=== PATIENT | female | born 1935 | race Caucasian/White ===

== ENCOUNTER → 2016-06-13 | Outpatient (CLI) | payer OTHER ==
[~2016-06-13] MED LIST: ACET-1257 PO; ANT25 PO; ASPI81TA28 PO; AZIT500T PO; CALC-452 PO; CHOL2000 PO; CHOL4POW5 PO; CITA20TA4 PO; CLOP1TAB15 PO; CZR50 PO; ESCI1TAB6 PO; FAMO20TA9 PO; GABA-112 PO; IMDSR30 PO; INSU1INJ33 SQ; LORA-741 PO; LOSA100T65 PO; LVMI SQ; LVMIPEN SQ; LXP10 PO; MECL1TAB42 PO; MIRT15TA3 PO; NITR0.4S UT; NVLGI/PEN SC; NVLGI/PEN SQ; ONDA4TAB54 PO; PANT40TA PO; PANT40TA2 PO; PRD/1 PO; PRED-301 PO; ROSU40TA PO; ROSU40TA28 PO; SULF800T23 PO; TPRSR/100 PO; WARF-246 PO; WARF-283 PO; WARF4TAB PO; WARF6TAB PO; ZOLE5INJ INJ; ZOLE5INJ IV; ZOLP10TA6 PO; ZOLP5TAB6 PO
[2016-06-13 10:05] LABS: INR 2.5 (0.9-1.1); PROTHROMBIN TIME (PATIENT) 28.3 SECONDS (9.0-12.0)
[2016-06-13 11:21] LABS: BLOOD UREA NITROGEN 25 mg/dl (7-18); BUN/CREATININE RATIO 18.8 (10-20); CALCIUM 8.7 mg/dl (8.5-10.1); CARBON DIOXIDE 28 mmol/L (21-32); CHLORIDE 105 mmol/L (98-107); GLUCOSE 324 mg/dl (70-99); POTASSIUM 4.1 mmol/L (3.5-5.1); SODIUM 140 mmol/L (136-145)
[2016-06-13 11:37] LABS: BETA-HYDROXYBUTYRATE 0.95 mg/dL (0.2-2.81)
== END | disposition home or self-care (01) ==
LOC: C.LAB1850 09:05
PROVIDERS: ATTEND Internal Medicine Geriatric Medicine
DX: I65.29 Occlusion and stenosis of unspecified carotid artery (principal); I10 Essential (primary) hypertension; E86.0 Dehydration

== ENCOUNTER 2016-06-19 18:48 | Observation (INO) | payer OTHER ==
[~2016-06-19] VITALS: Ht 167.6 cm; Wt 77.6 kg
[~2016-06-19 18:48] MED LIST changes: -AZIT500T PO; -CHOL4POW5 PO; -CITA20TA4 PO; -CLOP1TAB15 PO; -CZR50 PO; -ESCI1TAB6 PO; -FAMO20TA9 PO; -GABA-112 PO; -INSU1INJ33 SQ; -LORA-741 PO; +LOSA1TAB38 PO; -LVMI SQ; -LXP10 PO; -MECL1TAB42 PO; -MIRT15TA3 PO; -NVLGI/PEN SQ; +NVLGIPEN SC; -ONDA4TAB54 PO; -PANT40TA2 PO; -PRD/1 PO; +PRT/40 PO; +ROSU40TA18 PO; -ROSU40TA28 PO; -SULF800T23 PO; -WARF-246 PO; -WARF4TAB PO; -WARF6TAB PO; +WARF6TAB5 PO; -ZOLE5INJ IV; -ZOLP10TA6 PO; -ZOLP5TAB6 PO; +coumadin PO
[2016-06-19] MEDS ORDERED: ONDANSETRON INJ 2 MG/ML 2 ML VIAL IV STA (19:06)
--- NOTE | 2016-06-19 19:09 | EMERGENCY ROOM VISIT NOTE ---
History Report prepared by Ivana: Sara Cox Under the Supervision of: Dr. Jamison Carroll D.O. First contact with patient: 19:02 Chief Complaint: CHEST PAIN Stated Complaint: CHEST PAIN Nursing Triage Summary: Patient reports left sided CP that radiates into the left arm. Unsure when pain started, unable to describe pain at this time. Patient also reports associated nausea. Denies SOB. Patient has a hx of tripple bypass and stent placement. 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 The patient states that she took a baby Aspirin 30 minutes ago resolved her pain. She states she is also experiencing nausea with her symptoms. The patient denies any SOB or cough. She states that she has history of coronary stents, a triple bypass and stroke. She states she also has PMR which affects her chest but she states that her pain today feels different. The patient denies any new medications. 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 A total of 10 systems reviewed and were otherwise negative. Past Medical & Surgical Medical Problems: (1) CAD (coronary artery disease) (2) Carcinoma of colon (3) Colectomy (4) Coronary artery disease involving [place] coronary artery (5) Diabetes (6) Dizziness (7) Familial combined hyperlipidemia (8) Peptic ulcer (9) Rheumatoid arthritis (10) Stable angina (11) Vertigo Surgical Problems: (1) History of cholecystectomy (2) History of colectomy (3) Removal of pin, plate, lulu, or screw (4) S/P CABG x 3 Family History Cancer Diabetes mellitus FHx: aneurysm Heart disease Hypertension Social History Smoking Status: Never Smoker Alcohol Use: none Drug Use: none Marital Status: Housing Status: lives with significant other Occupation Status: retired Current/Historical Medications Scheduled Aspirin (Aspirin Ec), 81 MG PO DAILY Calcium Carbonate-Cholecalcife (Calcium 600 + D 600-200 mg-Unit), 1 TABS PO BID Cholecalciferol (Vitamin D3), 2,000 INTER.UNIT PO BID Insulin Aspart (Novolog Flexpen), 12 UNITS SC UD Insulin Aspart (Novolog Flexpen), 14 UNITS SC UD Insulin Detemir (Levemir Flexpen), 10 UNITS SQ QPM Isosorbide Mononitrate (Isosorbide Mononitrate ER), 30 MG PO QAM Losartan Potassium (Cozaar), 100 MG PO DAILY Metoprolol Succinate (Metoprolol Succinate ER), 100 MG PO DAILY Pantoprazole (Pantoprazole Sodium), 40 MG PO DAILY Prednisone (Prednisone), 5 MG PO BID Rosuvastatin Calcium (Rosuvastatin Calcium), 40 MG PO DAILY Warfarin Sodium (Warfarin Sodium), 4 MG PO DAILY Zoledronic Acid (Reclast), 1 DOSE INJ YEARLY Scheduled PRN Acetaminophen (Tylenol Extra Strength), 1,000 MG PO TID PRN for Pain Nitroglycerin (Nitrostat), 0.4 MG UT UD PRN for Chest Pain Allergies Coded Allergies: Cefadroxil (Verified Allergy, Intermediate, UNKNOWN, 05/18/16) Clindamycin (Verified Allergy, Intermediate, UNKNOWN, 05/18/16) Levofloxacin (Verified Allergy, Intermediate, UNKNOWN, 05/18/16) Metronidazole (Verified Allergy, Intermediate, UNKNOWN, 05/18/16) Amoxicillin (Verified Adverse Reaction, Mild, diarrhea, 05/18/16) Clavulanic Acid (Verified Adverse Reaction, Mild, diarrhea, 05/18/16) Metformin (Verified Adverse Reaction, Mild, diarreha, 05/18/16) Sitagliptin (Verified Adverse Reaction, Mild, diarreha, 05/18/16) Physical Exam Vital Signs Date Time Temp Pulse Resp B/P Pulse Ox O2 Delivery O2 Flow Rate FiO2 06/19/16 20:59 89 20 165/82 96 Room Air 06/19/16 19:14 Room Air 06/19/16 19:13 95 Room Air 06/19/16 19:05 86 06/19/16 19:02 94 Room Air 06/19/16 18:59 36.7 85 20 168/88 94 Room Air Physical Exam GENERAL: Patient is awake, alert, very anxious appearing and appears to be uncomfortable. EYES: The conjunctivae are clear. The pupils are round and reactive. EARS, NOSE, MOUTH AND THROAT: The nose is without any evidence of any deformity. Mucous membranes are moist tongue is midline NECK: The neck is nontender and supple. RESPIRATORY: Normal respiratory effort is noted there is no evidence of wheezing rhonchi or rales CARDIOVASCULAR: Regular rate and rhythm noted there no murmurs rubs or gallops normal S1 normal S2 GASTROINTESTINAL: The abdomen is soft. Bowel sounds are present in all quadrants. Abdomen is nontender MUSCULOSKELETAL/EXTREMITIES: There is no evidence of gross deformity full range of motion is noted in the hips and shoulders SKIN: There is no obvious evidence of any rash. There are no petechiae, pallor or cyanosis noted. Trace pedal edema bilaterally. NEUROLOGIC: Patient is awake alert and oriented x3 Medical Decision & Procedures ER Provider Diagnostic Interpretation: X-ray results as stated below per interpretation by me and the radiologist. CHEST ONE VIEW PORTABLE CLINICAL HISTORY: Chest pain. COMPARISON STUDY: Chest radiograph June 07, 2016. FINDINGS: There are median sternotomy wires and a prosthetic aortic valve. Moderate cardiomegaly is unchanged. There is no evidence of pulmonary edema. Mild elevation of the right hemidiaphragm is unchanged. Mild left basilar opacity favors atelectasis. Incidental note is made of suspected calcific tendinitis of the left rotator cuff. IMPRESSION: No acute cardiopulmonary findings. Stable cardiomegaly without evidence of pulmonary edema. Electronically signed by: Emmanuel Marino M.D. 06/19/2016 7:21 PM Dictated Date/Time: 06/19/2016 7:20 PM Laboratory Results 06/19/16 19:05 Red Blood Count 4.50, Mean Corpuscular Volume 93.3, Mean Corpuscular Hemoglobin 30.2, Mean Corpuscular Hemoglobin Concent 32.4, Mean Platelet Volume 9.8, Neutrophils (%) (Auto) 51.8, Lymphocytes (%) (Auto) 33.5, Monocytes (%) (Auto) 13.6, Eosinophils (%) (Auto) 0.4, Basophils (%) (Auto) 0.1, Neutrophils # (Auto ) 3.47, Lymphocytes # (Auto) 2.25, Monocytes # (Auto) 0.91, Eosinophils # (Auto ) 0.03, Basophils # (Auto) 0.01 06/19/16 19:05 Test 06/19/16 19:05 06/19/16 21:19 White Blood Count 6.71 K/uL (4.8-10.8) Red Blood Count 4.50 M/uL (4.2-5.4) Hemoglobin 13.6 g/dL (12.0-16.0) Hematocrit 42.0 % (37-47) Mean Corpuscular Volume 93.3 fL (80-100) Mean Corpuscular Hemoglobin 30.2 pg (25-34) Mean Corpuscular Hemoglobin Concent 32.4 g/dl (32-36) Platelet Count 142 K/uL (130-400) Mean Platelet Volume 9.8 fL (7.4-10.4) Neutrophils (%) (Auto) 51.8 % Lymphocytes (%) (Auto) 33.5 % Monocytes (%) (Auto) 13.6 % Eosinophils (%) (Auto) 0.4 % Basophils (%) (Auto) 0.1 % Neutrophils # (Auto) 3.47 K/uL (1.4-6.5) Lymphocytes # (Auto) 2.25 K/uL (1.2-3.4) Monocytes # (Auto) 0.91 K/uL (0.11-0.59) Eosinophils # (Auto) 0.03 K/uL (0-0.5) Basophils # (Auto) 0.01 K/uL (0-0.2) RDW Standard Deviation 56.8 fL (36.4-46.3) RDW Coefficient of Variation 16.5 % (11.5-14.5) Immature Granulocyte % (Auto) 0.6 % Immature Granulocyte # (Auto) 0.04 K/uL (0.00-0.02) Prothrombin Time 24.3 SECONDS (9.0-12.0) Prothromb Time International Ratio 2.2 (0.9-1.1) Activated Partial Thromboplast Time 30.5 SECONDS (21.0-31.0) Partial Thromboplastin Ratio 1.2 Anion Gap 9.0 mmol/L (3-11) Est Creatinine Clear Calc Drug Dose 34.4 ml/min Estimated GFR () 41.3 Estimated GFR (Non- 35.6 BUN/Creatinine Ratio 13.8 (10-20) Calcium Level 9.7 mg/dl (8.5-10.1) Total Bilirubin 0.3 mg/dl (0.2-1) Direct Bilirubin 0.1 mg/dl (0-0.2) Aspartate Amino Transf (AST/SGOT) 25 U/L (15-37) Alanine Aminotransferase (ALT/SGPT) 35 U/L (12-78) Alkaline Phosphatase 68 U/L (45-117) Total Creatine Kinase 24 U/L (26-192) Creatine Kinase MB 0.9 ng/ml (0.5-3.6) Creatine Kinase MB Ratio 3.8 (0-3.0) Total Protein 6.9 gm/dl (6.4-8.2) Albumin 3.6 gm/dl (3.4-5.0) Lipase 176 U/L (73-393) Laboratory results per my review. Medications Administered Medications (Trade) Dose Ordered Sig/Sincere Route Start Time Stop Time Status Last Admin Dose Admin Ondansetron HCl (Zofran Inj) 4 mg NOW STAT IV 06/19/16 19:06 06/19/16 19:08 DC 06/19/16 19:16 4 MG ECG Indication: chest pain Rate (beats per minute): 86 Rhythm: normal sinus Findings: no ectopy, other (Inferior and lateral ST segment abnormalities) Comparison ECG Date: May 26, 2016 Change: no significant change ED Course 1902: The patient was evaluated in room C1B. A complete history and physical examination were performed. 1905: Ordered Zofran Inj 4 mg IV. 2020: I discussed the case with Dr. Jm CASTREJON Hospitalist. He agreed to evaluate the patient for further management and care. Medical Decision Differential diagnosis: Etiologies such as cardiac ischemia, aortic dissection, pulmonary embolism, pneumonia, pneumothorax, musculoskeletal, infections, pericarditis, myocarditis , esophageal rupture, gastrointestinal, as well as others were entertained. Nursing notes reviewed. Patient's previous electronic medical records reviewed. Additional history is obtained from the patient's significant other. The patient is a 80-year-old female who presented to the emergency department for an evaluation of chest pain. The patient describes left-sided chest pain and nausea which began prior to arrival. Her gave her aspirin and nitroglycerin which resolved the majority of her pain but she continued to have an ill feeling and nausea. The patient presented to the emergency department with her significant other. The patient was treated with Zofran in the emergency department. The patient was recently at our facility for similar complaints and at that time had a cardiac catheterization. She has a history of coronary artery bypass grafting. Her recent cardiac catheterization did show significant coronary artery disease but she was felt to be a medical management only patient. She was not felt to be a good candidate for any intervention at this time. The patient's pain was improved. I discussed the patient's laboratory and radiographic studies with her. I also discussed the limitations of the emergency department workup for chest pain with her. Given the patient's recent cardiac catheterization in her troponin I discussed her case with the on- call [facility] hospitalist. They've agreed to evaluate the patient in the emergency apartment for further management and disposition. Consults Time Called: 2009 Consulting Physician: Dr. Jm CASTREJON Hospitalist. Returned Call: 2019 I discussed the case with Dr. Jm CASTREJON Hospitalist. He agreed to evaluate the patient for further management and care. Impression Primary Impression: Left sided chest pain Additional Impressions: Abnormal EKG, History of coronary artery disease Scribe Attestation The scribe's documentation has been prepared under my direction and personally reviewed by me in its entirety. I confirm that the note above accurately reflects all work, treatment, procedures, and medical decision making performed by me. Departure Information Dispostion Being Evaluated By Hospitalist Davion Calvert M.D. (PCP)
[2016-06-19 19:23] LABS: BASO % 0.1 %; BASO ABS # 0.01 K/uL (0-0.2); COMPLETE YES; EOS % 0.4 %; IG% 0.6 %; LYMPH % 33.5 %; LYMPH ABS # 2.25 K/uL (1.2-3.4); MEAN CELL VOLUME 93.3 fL (80-100); MEAN CORPUSCULAR HEMOGLOBIN 30.2 pg (25-34); MEAN CORPUSCULAR HGB CONC 32.4 g/dl (32-36); MEAN PLATELET VOLUME 9.8 fL (7.4-10.4); MONO % 13.6 %; NEUT % 51.8 %; PLATELET COUNT 142 K/uL (130-400); WHITE BLOOD COUNT 6.71 K/uL (4.8-10.8)
--- NOTE | 2016-06-19 19:23 | DIAGNOSTIC IMAGING REPORT ---
CHEST ONE VIEW PORTABLE CLINICAL HISTORY: Chest pain. COMPARISON STUDY: Chest radiograph June 07, 2016. FINDINGS: There are median sternotomy wires and a prosthetic aortic valve. Moderate cardiomegaly is unchanged. There is no evidence of pulmonary edema. Mild elevation of the right hemidiaphragm is unchanged. Mild left basilar opacity favors atelectasis. Incidental note is made of suspected calcific tendinitis of the left rotator cuff. IMPRESSION: No acute cardiopulmonary findings. Stable cardiomegaly without evidence of pulmonary edema. Electronically signed by: Emmanuel Marino M.D. 06/19/2016 7:21 PM Dictated Date/Time: 06/19/2016 7:20 PM
[2016-06-19 19:43] LABS: INR 2.2 (0.9-1.1); PARTIAL THROMBOPLASTIN RATIO 1.2; PROTHROMBIN TIME (PATIENT) 24.3 SECONDS (9.0-12.0)
[2016-06-19 20:03] LABS: BUN/CREATININE RATIO 13.8 (10-20); CALCIUM 9.7 mg/dl (8.5-10.1); CREATININE 1.4 mg/dl (0.60-1.20)
[2016-06-19 20:08] LABS: POTASSIUM 3.9 mmol/L (3.5-5.1)
[2016-06-19] MEDS ORDERED: PRED-301 PO ×2 (20:11)
[2016-06-19 20:16] LABS: CKMB/CK RATIO 3.8 (0-3.0)
--- NOTE | 2016-06-19 20:59 | History and Physical ---
History & Physical Date & Time of Service: Jun 19, 2016 at 20:34 Chief Complaint: Chest Pain Primary Care Physician: Davion Flores M.D. History of Present Illness Source: patient, spouse 80 y/o F Hc of dissuse CAD w/2 recent caths, bio AVR, CVA, HTN, HPL. Presents with nausea, diarrhea and chest discomfort. There is no significant change on EKG. Pt's troponin is elevated from previous although does not qualify as abnormal. She denies SOB, light head or diaphoresis. Denies vomiting or fevers. It appears that she is being medically managed for her CAD at this point. We will admit and treat for ACS. The pt is also c/o insomnia dating back to 03/27 which she states is causing her considerable distress. 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 She had CP and elevated troponins resulting in cardiac caths on 03/27 and 05/27 - no stents were placed although diffuse disease is present. Cath 05/26/16 RCA: Severely diseased throughout. 80% proximal, 100% distal. Co-dominant RCA. LM: ostial calcification with 30% stenosis. LAD: ostial 20% stenosis. mid-vessel competitive flow from [place]. LCx: proximal 20%. After OM1, 90% focal stenosis. After OM2, competitive flow from SVG noted. Co-dominant system. OM1: proximal 70% focal stenosis. OM2: normal. OM3: not well visualized. [place]-LAD: patent. competitive flow with [place] LAD. SVG-RPDA: Large, patent. SVG-LPDA (OM3): Large, patent. 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 Surgical Problems: (1) History of cholecystectomy Status: Resolved (2) History of colectomy Status: Resolved (3) Removal of pin, plate, lulu, or screw Status: Resolved 4) Cath x 03/27, 05/27 5) Bio AVR 03/18/16 Family History Cancer Diabetes mellitus FHx: aneurysm Heart disease Hypertension Social History Smoking Status: Never Smoker Drug Use: none Marital Status: Housing status: lives with family Occupational Status: retired Immunizations History of Influenza Vaccine: No Influenza Vaccine Date: Mar 17, 2011 History of Tetanus Vaccine?: unknown History of Pneumococcal: No History of Hepatitis B Vaccine: No Multi-Drug Resistant Organisms History of MDRO: No Allergies Coded Allergies: Cefadroxil (Verified Allergy, Intermediate, UNKNOWN, 05/18/16) Clindamycin (Verified Allergy, Intermediate, UNKNOWN, 05/18/16) Levofloxacin (Verified Allergy, Intermediate, UNKNOWN, 05/18/16) Metronidazole (Verified Allergy, Intermediate, UNKNOWN, 05/18/16) Amoxicillin (Verified Adverse Reaction, Mild, diarrhea, 05/18/16) Clavulanic Acid (Verified Adverse Reaction, Mild, diarrhea, 05/18/16) Metformin (Verified Adverse Reaction, Mild, diarreha, 05/18/16) Sitagliptin (Verified Adverse Reaction, Mild, diarreha, 05/18/16) Home Medications Scheduled Aspirin (Aspirin Ec), 81 MG PO DAILY Calcium Carbonate-Cholecalcife (Calcium 600 + D 600-200 mg-Unit), 1 TABS PO BID Cholecalciferol (Vitamin D3), 2,000 INTER.UNIT PO BID Insulin Aspart (Novolog Flexpen), 12 UNITS SC UD Insulin Aspart (Novolog Flexpen), 14 UNITS SC UD Insulin Detemir (Levemir Flexpen), 10 UNITS SQ QPM Isosorbide Mononitrate (Isosorbide Mononitrate ER), 30 MG PO QAM Losartan Potassium (Cozaar), 100 MG PO DAILY Metoprolol Succinate (Metoprolol Succinate ER), 100 MG PO DAILY Pantoprazole (Pantoprazole Sodium), 40 MG PO DAILY Prednisone (Prednisone), 5 MG PO BID Rosuvastatin Calcium (Rosuvastatin Calcium), 40 MG PO DAILY Warfarin Sodium (Warfarin Sodium), 4 MG PO DAILY Zoledronic Acid (Reclast), 1 DOSE INJ YEARLY Scheduled PRN Acetaminophen (Tylenol Extra Strength), 1,000 MG PO TID PRN for Pain Nitroglycerin (Nitrostat), 0.4 MG UT UD PRN for Chest Pain Review of Systems Constitutional: No chills, No fever, No sweats Eyes: No worsening of vision ENT: No hearing loss Respiratory: No cough, No sputum, No wheezing Cardiovascular: + chest pain Abdomen: + nausea, + vomiting Musculoskeletal: + joint pain (Chronic), No muscle pain Genitourinary - Female: No dysuria, No urinary frequency, No urinary urgency Neurologic: No memory loss, No paralysis Psychiatric: No depression symptoms Endocrine: + fatigue Hematologic / Lymphatic: No abnormal bleeding/bruising Integumentary: No rash Allergic / Immunologic: No environmental allergies Physical Exam Vital Signs Date Time Temp Pulse Resp B/P Pulse Ox O2 Delivery O2 Flow Rate FiO2 06/19/16 19:14 Room Air 06/19/16 19:13 95 Room Air 06/19/16 19:05 86 06/19/16 19:02 94 Room Air 06/19/16 18:59 36.7 85 20 168/88 94 Room Air General Appearance: WD/WN, no apparent distress Head: normocephalic Eyes: normal inspection, PERRL, EOMI ENT: normal ENT inspection, hearing grossly normal, pharynx normal Neck: supple, no JVD Respiratory/Chest: chest non-tender, lungs clear, normal breath sounds, no respiratory distress, no accessory muscle use Cardiovascular: regular rate, rhythm, no edema, no gallop, no JVD, + systolic murmur Abdomen/GI: normal bowel sounds, non tender, soft Back: normal inspection, no CVA tenderness Extremities/Musculoskelatal: normal inspection, no calf tenderness, normal capillary refill, no pedal edema, normal range of motion Neurologic/Psych: 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 II-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 nml as tested, no motor/sensory deficits, alert, normal mood/affect, normal reflexes, oriented x 3 Skin: normal color, warm/dry, no rash Diagnostics Laboratory Results Results Past 24 Hours Test 06/19/16 19:05 Range/Units White Blood Count 6.71 4.8-10.8 K/uL Red Blood Count 4.50 4.2-5.4 M/uL Hemoglobin 13.6 12.0-16.0 g/dL Hematocrit 42.0 37-47 % Mean Corpuscular Volume 93.3 80-100 fL Mean Corpuscular Hemoglobin 30.2 25-34 pg Mean Corpuscular Hemoglobin Concent 32.4 32-36 g/dl Platelet Count 142 130-400 K/uL Mean Platelet Volume 9.8 7.4-10.4 fL Neutrophils (%) (Auto) 51.8 % Lymphocytes (%) (Auto) 33.5 % Monocytes (%) (Auto) 13.6 % Eosinophils (%) (Auto) 0.4 % Basophils (%) (Auto) 0.1 % Neutrophils # (Auto) 3.47 1.4-6.5 K/uL Lymphocytes # (Auto) 2.25 1.2-3.4 K/uL Monocytes # (Auto) 0.91 0.11-0.59 K/uL Eosinophils # (Auto) 0.03 0-0.5 K/uL Basophils # (Auto) 0.01 0-0.2 K/uL RDW Standard Deviation 56.8 36.4-46.3 fL RDW Coefficient of Variation 16.5 11.5-14.5 % Immature Granulocyte % (Auto) 0.6 % Immature Granulocyte # (Auto) 0.04 0.00-0.02 K/uL Prothrombin Time 24.3 9.0-12.0 SECONDS Prothromb Time International Ratio 2.2 0.9-1.1 Activated Partial Thromboplast Time 30.5 21.0-31.0 SECONDS Partial Thromboplastin Ratio 1.2 Sodium Level 142 136-145 mmol/L Potassium Level 3.9 3.5-5.1 mmol/L Chloride Level 105 98-107 mmol/L Carbon Dioxide Level 28 21-32 mmol/L Anion Gap 9.0 3-11 mmol/L Blood Urea Nitrogen 19 7-18 mg/dl Creatinine 1.40 0.60-1.20 mg/dl Est Creatinine Clear Calc Drug Dose 34.4 ml/min Estimated GFR () 41.3 Estimated GFR (Non- 35.6 BUN/Creatinine Ratio 13.8 10-20 Random Glucose 151 70-99 mg/dl Calcium Level 9.7 8.5-10.1 mg/dl Total Bilirubin 0.3 0.2-1 mg/dl Direct Bilirubin 0.1 0-0.2 mg/dl Aspartate Amino Transf (AST/SGOT) 25 15-37 U/L Alanine Aminotransferase (ALT/SGPT) 35 12-78 U/L Alkaline Phosphatase 68 45-117 U/L Total Creatine Kinase 24 26-192 U/L Creatine Kinase MB 0.9 0.5-3.6 ng/ml Creatine Kinase MB Ratio 3.8 0-3.0 Troponin I 0.037 0-0.045 ng/ml Total Protein 6.9 6.4-8.2 gm/dl Albumin 3.6 3.4-5.0 gm/dl Lipase 176 73-393 U/L EKG NSR - cannot exclude lat ischemia - no significant change form previous Impression Assessment and Plan 80 y/o F Hc of diffuse CAD w/2 recent caths, bio AVR, HTN, HPL. Presents with nausea, diarrhea and chest discomfort. There is no significant change on EKG - Pt's troponin is elevated from previous but not abnormal at present. It appears that she is being medically managed for her CAD at this point. We will admit and treat for a presumed ACS. !) CP - elevated troponin - will admit for ACS, consult cardiology - pt is on Coumadin with a therapeutic INR - cont ASA, Crestor, Metoprolol - NTG or morphine PRN 2) Nausea and Diarrhea - Antiemetics as needed - gentle IVF - diarrhea has abated - stool can be cultured if recurrs or if pt deveops fevers 3) DM - SS 4) AVR - recent CVA - Pt on Coumadin - INR is therapeutic 5) Insomnia - will provide sedative - may benefit from QHS Rx prior to D/C 6) It is noted that her creatinine is elvated compared to baseline although stable since 05/27 - she may require nephrology followup Full code - Coumadin prophylaxis Total time for this admit including discussion with pt, , ER attending - review of labs, recods meds - 39 min Level of Care Telemetry Resuscitation Status FULL RESUSCITATION VTE Prophylaxis Risk Level: Moderate Given or contraindicated: Warfarin (Coumadin)
[2016-06-19] MEDS ORDERED: ONDANSETRON INJ 2 MG/ML 2 ML VIAL IV PRN (21:00)
[2016-06-19] MEDS ORDERED: ACETAMINOPHEN 325 MG TAB PO PRN (21:00)
[2016-06-19] MEDS ORDERED: ZOLPIDEM TARTRATE 5 MG TAB PO PRN (21:00)
[2016-06-19] MEDS ORDERED: NITROGLYCERIN 0.4 MG SL PER TAB CHARGE SL PRN (21:00)
[2016-06-19] MEDS ORDERED: POLYETHYLENE (MIRALAX) 17 GM PACK PO PRN (21:00)
[2016-06-19] MEDS ORDERED: MoRPHine SULFATE 2 MG/ML CARP IV PRN (21:00)
[2016-06-19] MEDS ORDERED: INSULIN DETEMIR FLEXPEN/FLEX TOUCH 100 UNITS/ML 3ML SQ SCH (21:00)
[2016-06-19] MEDS ORDERED: MAGNESIUM HYDROXIDE SUSP 30 ML UDC PO PRN (21:00)
[2016-06-19] MEDS ORDERED: ALUMINUM/MAGNESIUM/SIMETH (MAALOX MAX) 30 ML UDC PO PRN (21:00)
[2016-06-19] MEDS ORDERED: TRAZODONE HCL 50 MG TAB PO PRN (21:30)
[2016-06-19] MEDS ORDERED: IV FLUIDS COMPLETED PRN (21:30)
[2016-06-19] MEDS ORDERED: GLUCAGON FOR INJ 1 MG VIAL SQ PRN (22:15)
[2016-06-19] MEDS ORDERED: GLUCOSE 40% GEL 15 GM TUBE PO PRN (22:15)
[2016-06-19] MEDS ORDERED: GLUCOSE 10 TABS/TUBE PO PRN (22:15)
[2016-06-19] MEDS ORDERED: DEXTROSE 50% 50 ML SYR IV PRN (22:15)
[2016-06-19 22:17] VITALS: BP 164/91; PULSE 84; TEMP 36.4; O2SAT 96; Ht 167.6 cm; Wt 77.6 kg
[2016-06-19] MEDS ORDERED: NSS + 20MEQ KCL 1000ML 1,000 ML IV SCH (22:30)
[2016-06-19 23:14] VITALS: BP 162/81; PULSE 85; TEMP 36.3; O2SAT 94
[2016-06-20] VITALS (9 sets, daily range): BP systolic 102–174; BP diastolic 60–82; PULSE 68–103; TEMP 36.4–36.8; O2SAT 95–96
[2016-06-20] MEDS ORDERED: PNEUMOCOCCAL ADMINISTRATION CHARGE ONE (01:15)
[2016-06-20] MEDS ORDERED: PNEUMOCOCCAL POLYSACCHARIDES 25 MCG/0.5 ML VIAL/SYR IM. ONE (01:15)
[2016-06-20 03:04] LABS: HEMATOCRIT 37.6 % (37-47); MEAN CELL VOLUME 93.8 fL (80-100); MEAN CORPUSCULAR HEMOGLOBIN 30.2 pg (25-34); MEAN CORPUSCULAR HGB CONC 32.2 g/dl (32-36); MEAN PLATELET VOLUME 9.3 fL (7.4-10.4); PLATELET COUNT 115 K/uL (130-400); RED BLOOD COUNT 4.01 M/uL (4.2-5.4); WHITE BLOOD COUNT 5.58 K/uL (4.8-10.8)
[2016-06-20 03:29] LABS: BUN/CREATININE RATIO 13.5 (10-20); CALCIUM 9.2 mg/dl (8.5-10.1); CREATININE 1.2 mg/dl (0.60-1.20); MAGNESIUM 2.2 mg/dl (1.8-2.4); POTASSIUM 4.2 mmol/L (3.5-5.1)
[2016-06-20] MEDS: INSULIN ASPART 100 UNITS/ML 3 ML PEN SC SCH ×2 (07:00→11:00)
[2016-06-20 07:15] LABS: INR 2.1 (0.9-1.1); PROTHROMBIN TIME (PATIENT) 22.9 SECONDS (9.0-12.0)
[2016-06-20] MEDS ORDERED: ISOSORBIDE MONONITRATE 30 MG TABCR PO SCH (09:00)
[2016-06-20] MEDS ORDERED: ASPIRIN 81 MG ECTAB PO SCH (09:00)
[2016-06-20] MEDS ORDERED: LOSARTAN POTASSIUM 50 MG TAB PO SCH (09:00)
[2016-06-20] MEDS ORDERED: ROSUVASTATIN CALCIUM 20 MG TAB PO SCH (09:00)
[2016-06-20] MEDS ORDERED: PANTOprazole SOD 40 MG TAB PO SCH (09:00)
[2016-06-20] MEDS ORDERED: METOPROLOL SUCC 50MG EXT REL TAB PO SCH (09:00)
[2016-06-20] MEDS ORDERED: WARFARIN SOD 4 MG TAB PO SCH (16:00)
--- NOTE | 2016-06-20 16:25 | Discharge Instructions ---
Discharge Instructions Admission Reason for Admission: Cad, Chest Pain Discharge Discharge Diagnosis / Problem: Chest pain, non-cardiac Discharge Goals Goal(s): Decrease discomfort, Improve function Activity Recommendations Activity Limitations: resume your previous activity Lifting Limitations: none Exercise/Sports Limitations: as tolerated May Resume Sexual Activity: when tolerated Shower/Bathe: no limitations Driving or Machine Use: no limitations . Instructions / Follow-Up Instructions / Follow-Up Medications: resume all prior home medications - ADVIL: use 600mg up to 4 times a day as needed for the musculoskeletal chest pain, please take with food In summary, you had no EKG changes and your heart enzymes were negative three times ruling out that this pain was due to your heart. As discussed, the pain is most likely due to musculoskeletal pain exacerbated by your surgery in the fall. You can continue to use NSAIDs to control the pain as well as the Prednisone. Suggest follow up with Dr. Flores for continued control of the pain and you should continue to discuss treatment of your insomnia. FOLLOW UP - please call Dr. Davion Flores for hospital follow up in one week - please keep prior appointment with Dr. Starr - please keep prior appointment with cardiology Current Hospital Diet Patient's current hospital diet: AHA Diet (Heart Healthy), Diabetes Type 2 Diet Discharge Diet Recommended Diet: AHA Diet (Heart Healthy), Diabetes Type 2 Diet Pending Studies Studies pending at discharge: no Laboratory Results Hemoglobin A1c Test 05/12/16 13:02 Range/Units Estimated Average Glucose 131 mg/dl Hemoglobin A1c 6.2 H 4.5-5.6 % Lipid Panel Test 05/12/16 13:02 Range/Units Triglycerides Level 244 H 0-150 mg/dl Cholesterol Level 255 H 0-200 mg/dl HDL Cholesterol 50 mg/dl Cholesterol/HDL Ratio 5.1 LDL Cholesterol, Calculated 156 mg/dl Medical Emergencies . Who to Call and When: Medical Emergencies: If at any time you feel your situation is an emergency, please call 911 immediately. . Non-Emergent Contact Non-Emergency issues call your: Primary Care Provider Call Non-Emergent contact if: you have a fever, your pain is worsening, your pain is concerning you, you have any medication questions . . "Provider Documentation" section prepared by Reagan Giron. VTE Core Measure Inpt VTE Proph given/why not?: Warfarin (Coumadin) [place] Drug Monitoring Program Search Results: no issues identified
--- NOTE | 2016-06-21 08:16 | Discharge Summary ---
Discharge Summary Admission Date: Jun 19, 2016 at 21:07 Discharge Date: Jun 20, 2016 Discharge Disposition: Home Principal Diagnosis: Chest pain, non-cardiac Problems/Secondary Diagnoses: Polymyalgia rheumatica s/p mechanical valve, on coumadin h/o ischemic stroke with right sided deficits Insomnia Immunizations: Have You Had Influenza Vaccine: No Influenza Vaccine Date: Mar 17, 2011 History of Tetanus Vaccine?: unknown History of Pneumococcal: No History of Hepatitis B Vaccine: No Procedures: none Consultations: none Medication Reconciliation Continued Medications: Acetaminophen (Tylenol Extra Strength) 500 Mg Tab 1000 MG PO TID PRN for Pain Aspirin (Aspirin Ec) 81 Mg Tab 81 MG PO DAILY Calcium Carbonate-Cholecalcife (Calcium 600 + D 600-200 mg-Unit) 1 Tab Tab 1 TABS PO BID Cholecalciferol (Vitamin D3) 2,000 Unit Cap 2000 INTER.UNIT PO BID Insulin Aspart (Novolog Flexpen) 100 Units/Ml Inj 12 UNITS SC UD INJECT 14 UNITS WITH BREAKFAST AND LUNCH PLUS SLIDING SCALE. Insulin Aspart (Novolog Flexpen) 100 Units/Ml Inj 14 UNITS SC UD INJECT 17 UNITS WITH EVENING MEAL PLUS SLIDING SCALE Insulin Detemir (Levemir Flexpen) 100 Unit/Ml Inj 10 UNITS SQ QPM Isosorbide Mononitrate (Isosorbide Mononitrate ER) 30 Mg Tabcr 30 MG PO QAM for 30 Days Losartan Potassium (Cozaar) 100 Mg Tab 100 MG PO DAILY Metoprolol Succinate (Metoprolol Succinate ER) 100 Mg Tabcr 100 MG PO DAILY Nitroglycerin (Nitrostat) 0.4 Mg Sub 0.4 MG UT UD PRN for Chest Pain Pantoprazole (Pantoprazole Sodium) 40 Mg Tab 40 MG PO DAILY Prednisone (Prednisone) 5 Mg Tab 5 MG PO BID, TAB Rosuvastatin Calcium (Rosuvastatin Calcium) 40 Mg Tab 40 MG PO DAILY Warfarin Sodium (Warfarin Sodium) 4 Mg Tab 4 MG PO DAILY TAKE 4 MG EVERY DAY OR OTHERWISE DIRECTED TO TAKE BY ANTICOAGULATION CLINIC/ Zoledronic Acid (Reclast) 5 Mg/100 Ml Inj 1 DOSE INJ YEARLY Discharge Exam Patient rested comfortably during the day, no further severe chest pain. Long discussion regarding her chest pain and the low probability that it would be cardiac in nature. She has presented to the hospital numerous times since her surgery in the fall with complaints of chest pain and pressure. Her EKG's have been consistently normal and her cardiac enzymes have never really peaked. In May 2016 she underwent a repeat cardiac catheterization due to her recurrent trips to the hospital for chest pain and she was found to have diffuse disease, no stents necessary. She has been following with Dr. Walters in the office and he recently recommended that she continue rehabilitation for her right sided weakness after suffering a stroke in the fall. Prior to this episode of chest pain she was experiencing nausea and vomiting and generally not feeling well. She c/o insomnia that has been occurring for 3 months, no relief with different sleep aides. A schneider component of her symptoms could be related to PMR. She used to follow with Dr. Zarco but transferred service to Dr. Starr. She has not seen Dr. Starr in the clinic yet. Two appointments were cancelled by the provider and then the patient was in the hospital for her last scheduled visit. She has continued to use Prednisone 5mg in the morning and 10mg at night with Tylenol as needed for pain. Her chest pain is referred to her shoulders and back as well. She agrees that there could a rheumatologic component but has been unable to see Dr. Starr. After her repeat EKG was normal and repeat troponin was also normal, we discussed that her symptoms did not appear to be heart related, recommended that she be discharged and follow up outpatient. Review of Systems: Constitutional: + fatigue, No chills, No fever, No problem reported, No sweats, No weakness, No weight loss Respiratory: No cough, No dyspnea at rest, No dyspnea on exertion, No hemoptysis, No problem reported, No shortness of breath, No sputum, No wheezing Cardiovascular: + chest pain, No PND, No claudication, No edema, No orthopnea, No palpitations, No problem reported Abdomen: No GI bleeding, No constipation, No diarrhea, No nausea, No pain, No problem reported, No vomiting Musculoskeletal: + joint pain, + muscle pain, No calf pain, No swelling Genitourinary - Female: No dysuria, No hematuria, No urinary frequency, No urinary incontinence, No urinary retention, No urinary urgency Neurologic: + weakness (right sided), No balance problems, No memory loss, No numbness/tingling, No paralysis, No vertigo Psychiatric: + anxiety, + insomnia, No anhedonism, No depression symptoms, No substance abuse Endocrine: No excessive thirst, No excessive urination, No fatigue, No problem reported Hematologic / Lymphatic: No abnormal bleeding/bruising, No clotting problems , No night sweats, No problem reported, No swollen lymph nodes Integumentary: No bleeding, No color change, No itch, No new/changing skin lesions, No problem reported, No rash Physical Exam: General Appearance: WD/WN, no apparent distress Eyes: normal inspection, EOMI, sclerae normal ENT: normal ENT inspection, hearing grossly normal, pharynx normal Neck: supple, no adenopathy, no JVD, trachea midline Respiratory/Chest: lungs clear, normal breath sounds, no respiratory distress, no accessory muscle use, + pertinent finding (diffuse tenderness to palpation over anterior ribs and sternum) Cardiovascular: regular rate, rhythm, no edema, no gallop, no JVD, no murmur , normal peripheral pulses Abdomen / GI: normal bowel sounds, non tender, soft, no organomegaly Extremities: normal inspection, no calf tenderness, normal capillary refill , no pedal edema, normal range of motion Neurologic/Psychiatric: import coordinator II-XII nml as tested, no motor/sensory deficits , alert, normal mood/affect, normal reflexes, oriented x 3 Skin: normal color, warm/dry, no rash Hospital Course 80 y/o F Hc of diffuse CAD w/2 recent caths, bio AVR, HTN, HPL. Presents with nausea, diarrhea and chest discomfort. There is no significant change on EKG - Pt's troponin is elevated from previous but not abnormal at present. As discussed above, her troponin remained in normal range at 0.04 and repeat EKG was normal. 1) Chest pain with history of CAD: no signs of ACS, medically manage with aspirin, metoprolol, Crestor, Imdur and PRN nitro tabs certainly her PMR could be playing a role in the pain, she has associated pain in shoulders and back, pain is reproducible recommend using her Prednisone as well as Advil (take with food) and Tylenol 2) Nausea and Diarrhea - resolved, no anti-emetics needed, tolerating diet, her had similar symptoms one week ago and they resolved quickly 3) DM - continue home insulin regimen with Lantus and Novolog 4) AVR - recent CVA - Pt on Coumadin - INR is therapeutic 5) Insomnia - discussed in detail, patient has tried Trazodone and Ambien at home. Best relief with Ambien 10mg but has side effects this is ongoing issue that she needs to follow up with PCP 6) CKD stage III: Cr stable at a range of 1.2-1.4 Total Time Spent: Greater than 30 minutes This includes examination of the patient, discharge planning, medication reconciliation, and communication with other providers. Discharge Instructions Please refer to the electronic Patient Visit Report (Discharge Instructions) for additional information. Follow-Up Dr. Davion Flores in one week Dr. Starr on 07/20 Dr. Walters as previously scheduled Additional Copies To Davion Flores M.D.; Anoop Walters MD; Asya Starr MD
[2016-09-15] MEDS ORDERED: GABA-112 PO (20:29)
[2016-09-22] MEDS ORDERED: ONDA4TAB54 PO (09:45)
[2016-09-22] MEDS ORDERED: CHOL2000 PO (09:45)
[2016-09-22] MEDS ORDERED: PANT40TA PO (09:45)
[2016-09-22] MEDS ORDERED: PRED-301 PO (09:45)
[2016-09-22] MEDS ORDERED: AZIT500T PO (09:45)
[2016-10-18] MEDS ORDERED: ESCI1TAB6 PO (09:50)
[2016-10-18] MEDS ORDERED: INSU1INJ33 SQ (09:50)
[2016-10-18] MEDS ORDERED: CLOP1TAB15 PO (09:50)
[2016-10-18] MEDS ORDERED: ROSU40TA PO (09:50)
[2016-10-18] MEDS ORDERED: GABA-112 PO (09:50)
== END 2016-06-20 18:07 | disposition home or self-care (01) ==
LOC: ENRESERVDT → ENRESERVTM → C.EDB 18:48 → C.2T 21:07
PROVIDERS: ADMIT Internal Medicine; ATTEND Internal Medicine
DX: R07.89 Other chest pain (principal); I25.10 Atherosclerotic heart disease of native coronary artery without angina pectoris; E11.9 Type 2 diabetes mellitus without complications; N18.3 Chronic kidney disease, stage 3 (moderate); I12.9 Hypertensive chronic kidney disease with stage 1 through stage 4 chronic kidney disease, or unspecified chronic kidney disease; M06.9 Rheumatoid arthritis, unspecified; M35.3 Polymyalgia rheumatica; G47.00 Insomnia, unspecified; E78.4 Other hyperlipidemia; Z95.5 Presence of coronary angioplasty implant and graft; Z95.1 Presence of aortocoronary bypass graft; Z85.038 Personal history of other malignant neoplasm of large intestine; Z79.82 Long term (current) use of aspirin; Z79.4 Long term (current) use of insulin; Z79.01 Long term (current) use of anticoagulants; Z79.899 Other long term (current) drug therapy; Z86.73 Personal history of transient ischemic attack (TIA), and cerebral infarction without residual deficits; Z95.2 Presence of prosthetic heart valve

== ENCOUNTER 2016-06-28 17:37 | Emergency (ER) | payer OTHER ==
[~2016-06-28] VITALS: Ht 167.6 cm; Wt 78.5 kg
[~2016-06-28 17:37] MED LIST changes: -ANT25 PO; -LOSA1TAB38 PO; -NVLGIPEN SC; -PANT40TA PO; -ROSU40TA PO; -WARF6TAB5 PO; -coumadin PO
[2016-06-28 17:49] VITALS: TEMP 36.9; Ht 167.6 cm; Wt 78.5 kg
--- NOTE | 2016-06-28 18:06 | EMERGENCY ROOM VISIT NOTE ---
History Report prepared by Ivana: Domenico Beal Under the Supervision of: Dr. Ancelmo Cárdenas M.D. First contact with patient: 17:53 Chief Complaint: CARDIAC ASSESSMENT Stated Complaint: CHEST PAINS History of Present Illness The patient is a 80 year old female who presents to the Emergency Room with complaints of persistent bilateral chest pain beginning about 5 days ago. She notes she had valve replacement surgery in March of 2016 at [facility]. She went to cardiac rehab for the first time 5 days ago and notes her pain is worsened by the rehab. Today was her 4th time at rehab. She was admitted to the hospital last week for the same symptoms as today, though she notes her current pain is worse. She denies any syncope, or leg swelling. The patient is on Coumadin. Source of History: patient Onset: 5 days ago Position: chest (bilateral) Quality: other (chest pain) Timing: other (persistent) Modifying Factors (Worsening): exertion Note: The patient denies any syncope or leg swelling. Review of Systems See HPI for pertinent positives & negatives. A total of 10 systems reviewed and were otherwise negative. Past Medical & Surgical Medical Problems: (1) CAD (coronary artery disease) (2) Carcinoma of colon (3) Colectomy (4) Coronary artery disease involving cachil dehe coronary artery (5) Diabetes (6) Dizziness (7) Familial combined hyperlipidemia (8) Peptic ulcer (9) Rheumatoid arthritis (10) Stable angina (11) Vertigo Surgical Problems: (1) History of cholecystectomy (2) History of colectomy (3) Removal of pin, plate, lulu, or screw (4) S/P CABG x 3 Family History Cancer Diabetes mellitus FHx: aneurysm Heart disease Hypertension Social History Smoking Status: Never Smoker Alcohol Use: none Drug Use: none Marital Status: Housing Status: lives with significant other Occupation Status: retired Current/Historical Medications Scheduled Aspirin (Aspirin Ec), 81 MG PO DAILY Calcium Carbonate-Cholecalcife (Calcium 600 + D 600-200 mg-Unit), 1 TABS PO BID Cholecalciferol (Vitamin D3), 2,000 INTER.UNIT PO BID Insulin Aspart (Novolog Flexpen), 12 UNITS SC UD Insulin Aspart (Novolog Flexpen), 14 UNITS SC UD Insulin Detemir (Levemir Flexpen), 10 UNITS SQ QPM Isosorbide Mononitrate (Isosorbide Mononitrate ER), 30 MG PO QAM Losartan Potassium (Cozaar), 100 MG PO DAILY Metoprolol Succinate (Metoprolol Succinate ER), 100 MG PO DAILY Pantoprazole (Pantoprazole Sodium), 40 MG PO DAILY Prednisone (Prednisone), 5 MG PO BID Rosuvastatin Calcium (Rosuvastatin Calcium), 40 MG PO DAILY Warfarin Sodium (Warfarin Sodium), 4 MG PO DAILY Zoledronic Acid (Reclast), 1 DOSE INJ YEARLY Scheduled PRN Acetaminophen (Tylenol Extra Strength), 1,000 MG PO TID PRN for Pain Nitroglycerin (Nitrostat), 0.4 MG UT UD PRN for Chest Pain Allergies Coded Allergies: Cefadroxil (Verified Allergy, Intermediate, UNKNOWN, 05/18/16) Clindamycin (Verified Allergy, Intermediate, UNKNOWN, 05/18/16) Levofloxacin (Verified Allergy, Intermediate, UNKNOWN, 05/18/16) Metronidazole (Verified Allergy, Intermediate, UNKNOWN, 05/18/16) Amoxicillin (Verified Adverse Reaction, Mild, diarrhea, 05/18/16) Clavulanic Acid (Verified Adverse Reaction, Mild, diarrhea, 05/18/16) Metformin (Verified Adverse Reaction, Mild, diarreha, 05/18/16) Sitagliptin (Verified Adverse Reaction, Mild, diarreha, 05/18/16) Physical Exam Vital Signs Date Time Temp Pulse Resp B/P Pulse Ox O2 Delivery O2 Flow Rate FiO2 06/28/16 19:34 72 18 143/68 92 06/28/16 18:54 73 18 140/74 91 Room Air 06/28/16 18:37 75 06/28/16 18:19 94 Room Air 06/28/16 17:49 36.9 88 20 147/88 95 Room Air Physical Exam GENERAL: Patient is anxious appearing and in minimal distress. HEENT: No acute trauma, normocephalic atraumatic, mucous membranes moist, no nasal congestion, no scleral icterus. NECK: No stridor, no adenopathy, no meningismus, trachea is midline. LUNGS: No dyspnea. Clear to auscultation and equal bilaterally. No wheeze, no rhonchi. HEART: Regular rate and rhythm. Mild systolic murmurs, no rubs, gallops appreciated. ABDOMEN: Soft, nontender, bowel sounds positive, no masses appreciated, no peritonitis. BACK: No midline tenderness, no CVA tenderness EXTREMITIES: Normal motion all extremities, no cyanosis, no edema. NEUROLOGIC: Alert and oriented, no acute motor or sensory deficits, no focal weakness, cranial nerves grossly intact. SKIN: No rash, no jaundice, no diaphoresis. Medical Decision & Procedures ER Provider Diagnostic Interpretation: X ray results are stated below per my interpretation and the radiologist's interpretation. SINGLE VIEW CHEST FINDINGS: An AP, portable, upright chest radiograph is compared to study dated 06/19/2016 and correlated with chest CT dated 04/28/2016. The examination is degraded by portable technique, large body habitus, and patient rotation. The patient is status post midline sternotomy. The heart is enlarged and there is atherosclerotic calcification of the thoracic aorta. The pulmonary vasculature is noncongested. Chronic interstitial thickening and mild elevation of the right hemidiaphragm is unchanged from prior studies. No airspace consolidation, large pleural effusion, or pneumothorax is seen. The skeletal structures are osteopenic. The bony thorax is grossly intact. Calcific tendinopathy is noted in the left shoulder. IMPRESSION: Cardiomegaly with no acute cardiopulmonary abnormality. Electronically signed by: Efren Taylor M.D. 06/28/2016 6:26 PM Dictated Date/Time: 06/28/2016 6:25 PM Laboratory Results 06/28/16 18:15 Red Blood Count 4.21, Mean Corpuscular Volume 92.2, Mean Corpuscular Hemoglobin 30.4, Mean Corpuscular Hemoglobin Concent 33.0, Mean Platelet Volume 9.5, Neutrophils (%) (Auto) 60.9, Lymphocytes (%) (Auto) 27.8, Monocytes (%) (Auto) 10.5, Eosinophils (%) (Auto) 0.4, Basophils (%) (Auto) 0.1, Neutrophils # (Auto ) 4.36, Lymphocytes # (Auto) 1.99, Monocytes # (Auto) 0.75, Eosinophils # (Auto ) 0.03, Basophils # (Auto) 0.01 06/28/16 18:15 Test 06/28/16 18:15 White Blood Count 7.16 K/uL (4.8-10.8) Red Blood Count 4.21 M/uL (4.2-5.4) Hemoglobin 12.8 g/dL (12.0-16.0) Hematocrit 38.8 % (37-47) Mean Corpuscular Volume 92.2 fL (80-100) Mean Corpuscular Hemoglobin 30.4 pg (25-34) Mean Corpuscular Hemoglobin Concent 33.0 g/dl (32-36) Platelet Count 152 K/uL (130-400) Mean Platelet Volume 9.5 fL (7.4-10.4) Neutrophils (%) (Auto) 60.9 % Lymphocytes (%) (Auto) 27.8 % Monocytes (%) (Auto) 10.5 % Eosinophils (%) (Auto) 0.4 % Basophils (%) (Auto) 0.1 % Neutrophils # (Auto) 4.36 K/uL (1.4-6.5) Lymphocytes # (Auto) 1.99 K/uL (1.2-3.4) Monocytes # (Auto) 0.75 K/uL (0.11-0.59) Eosinophils # (Auto) 0.03 K/uL (0-0.5) Basophils # (Auto) 0.01 K/uL (0-0.2) RDW Standard Deviation 54.6 fL (36.4-46.3) RDW Coefficient of Variation 16.3 % (11.5-14.5) Immature Granulocyte % (Auto) 0.3 % Immature Granulocyte # (Auto) 0.02 K/uL (0.00-0.02) Prothrombin Time 22.4 SECONDS (9.0-12.0) Prothromb Time International Ratio 2.0 (0.9-1.1) Activated Partial Thromboplast Time 28.5 SECONDS (21.0-31.0) Partial Thromboplastin Ratio 1.1 Anion Gap 8.0 mmol/L (3-11) Est Creatinine Clear Calc Drug Dose 30.1 ml/min Estimated GFR () 35.2 Estimated GFR (Non- 30.3 BUN/Creatinine Ratio 15.9 (10-20) Calcium Level 9.5 mg/dl (8.5-10.1) Total Creatine Kinase 29 U/L (26-192) Creatine Kinase MB 0.8 ng/ml (0.5-3.6) Creatine Kinase MB Ratio 2.8 (0-3.0) Troponin I < 0.015 ng/ml (0-0.045) Laboratory results as reviewed by me. ECG Indication: chest pain Rate (beats per minute): 81 Rhythm: normal sinus Findings: ST depression (Lateral), no ectopy Comparison ECG Date: June 20, 2016 Change: no significant change ED Course 1753: The patient was evaluated in room C8. A complete history and physical exam was performed. 1909: Reevaluated the patient. Discussed results and discharge instructions: She verbalized understanding and agreement. The patient is ready for discharge. Medical Decision Differential: Cardiac Ischemia (STEMI, NSTEMI, Unstable Angina, etc), Aortic Dissection, Arrhythmia, Pulmonary Embolism, Pneumonia, Pneumothorax, MSK, Infectious, Pericarditis/Myocarditis, Esophageal Rupture, Gastrointestinal, amongst other pathologies entertained, post operative pain. Pleasant though somewhat anxious 80 yr old female arrives with bilateral chest pains which have been ongoing for last 2 weeks. Worse after rehab (which was actually when all of this began 2 weeks ago). She already has been admitted to this a few days ago and ruled out for cardiac ischemia. EKG similar to previous and Trop is negative. Given ongoing x 2 weeks I do not feel this is ACS. Especially given it is clearly MSK in nature as worse with movement and chest exercises. She is stable, no distress and otherwise looks well. She will follow up with PCP and Cards. Discussed symptoms requiring RTED. Impression Primary Impression: Chest pain Scribe Attestation The scribe's documentation has been prepared under my direction and personally reviewed by me in its entirety. I confirm that the note above accurately reflects all work, treatment, procedures, and medical decision making performed by me. Departure Information Dispostion Home / Self-Care Referrals Davion Flores M.D. (PCP) Patient Instructions ED Chest Pain Atypical Unkn Cause, My [facility] Problem Qualifiers Primary Impression: Chest pain Chest pain type: unspecified Qualified Codes: R07.9 - Chest pain, unspecified
--- NOTE | 2016-06-28 18:28 | DIAGNOSTIC IMAGING REPORT ---
SINGLE VIEW CHEST CLINICAL HISTORY: Atypical chest pain. FINDINGS: An AP, portable, upright chest radiograph is compared to study dated 06/19/2016 and correlated with chest CT dated 04/28/2016. The examination is degraded by portable technique, large body habitus, and patient rotation. The patient is status post midline sternotomy. The heart is enlarged and there is atherosclerotic calcification of the thoracic aorta. The pulmonary vasculature is noncongested. Chronic interstitial thickening and mild elevation of the right hemidiaphragm is unchanged from prior studies. No airspace consolidation, large pleural effusion, or pneumothorax is seen. The skeletal structures are osteopenic. The bony thorax is grossly intact. Calcific tendinopathy is noted in the left shoulder. IMPRESSION: Cardiomegaly with no acute cardiopulmonary abnormality. Electronically signed by: Efren Taylor M.D. 06/28/2016 6:26 PM Dictated Date/Time: 06/28/2016 6:25 PM
[2016-06-28 18:29] LABS: BASO % 0.1 %; BASO ABS # 0.01 K/uL (0-0.2); COMPLETE YES; EOS % 0.4 %; HEMATOCRIT 38.8 % (37-47); IG% 0.3 %; LYMPH % 27.8 %; LYMPH ABS # 1.99 K/uL (1.2-3.4); MEAN CELL VOLUME 92.2 fL (80-100); MEAN CORPUSCULAR HEMOGLOBIN 30.4 pg (25-34); MEAN PLATELET VOLUME 9.5 fL (7.4-10.4); MONO % 10.5 %; NEUT % 60.9 %; PLATELET COUNT 152 K/uL (130-400); RED BLOOD COUNT 4.21 M/uL (4.2-5.4); WHITE BLOOD COUNT 7.16 K/uL (4.8-10.8)
[2016-06-28 18:43] LABS: PARTIAL THROMBOPLASTIN RATIO 1.1; PROTHROMBIN TIME (PATIENT) 22.4 SECONDS (9.0-12.0)
[2016-06-28 18:46] LABS: BLOOD UREA NITROGEN 25 mg/dl (7-18); BUN/CREATININE RATIO 15.9 (10-20); CALCIUM 9.5 mg/dl (8.5-10.1); CARBON DIOXIDE 28 mmol/L (21-32); CHLORIDE 106 mmol/L (98-107); GLUCOSE 236 mg/dl (70-99); POTASSIUM 4.1 mmol/L (3.5-5.1); SODIUM 142 mmol/L (136-145)
[2016-06-28 18:51] LABS: CKMB/CK RATIO 2.8 (0-3.0)
[2016-06-28 19:34] VITALS: BP 143/68; PULSE 72; O2SAT 92
[2016-09-15] MEDS ORDERED: GABA-112 PO (20:29)
[2016-09-22] MEDS ORDERED: ONDA4TAB54 PO (09:45)
[2016-09-22] MEDS ORDERED: AZIT500T PO (09:45)
[2016-09-22] MEDS ORDERED: CHOL2000 PO (09:45)
[2016-09-22] MEDS ORDERED: PRED-301 PO (09:45)
[2016-09-22] MEDS ORDERED: PANT40TA PO (09:45)
[2016-10-18] MEDS ORDERED: CLOP1TAB15 PO (09:50)
[2016-10-18] MEDS ORDERED: INSU1INJ33 SQ (09:50)
[2016-10-18] MEDS ORDERED: GABA-112 PO (09:50)
[2016-10-18] MEDS ORDERED: ESCI1TAB6 PO (09:50)
[2016-10-18] MEDS ORDERED: ROSU40TA PO (09:50)
== END 2016-06-28 19:34 | disposition home or self-care (01) ==
LOC: C.EDB 17:38 → C.EDC 19:34
DX: R07.9 Chest pain, unspecified (principal); I25.10 Atherosclerotic heart disease of native coronary artery without angina pectoris; E11.9 Type 2 diabetes mellitus without complications; E78.4 Other hyperlipidemia; M06.9 Rheumatoid arthritis, unspecified; Z87.11 Personal history of peptic ulcer disease; Z95.1 Presence of aortocoronary bypass graft; Z85.038 Personal history of other malignant neoplasm of large intestine; Z98.61 Coronary angioplasty status; Z90.49 Acquired absence of other specified parts of digestive tract; Z79.01 Long term (current) use of anticoagulants; Z79.82 Long term (current) use of aspirin; Z79.4 Long term (current) use of insulin; Z79.899 Other long term (current) drug therapy; Z88.8 Allergy status to other drugs, medicaments and biological substances; Z80.9 Family history of malignant neoplasm, unspecified; Z83.3 Family history of diabetes mellitus; Z82.49 Family history of ischemic heart disease and other diseases of the circulatory system

== ENCOUNTER → 2016-06-29 | Outpatient (CLI) | payer OTHER ==
[~2016-06-29] MED LIST changes: +AZIT500T PO; +CHOL4POW5 PO; +CITA20TA4 PO; +CLOP1TAB15 PO; +ESCI1TAB6 PO; +GABA-112 PO; +INSU1INJ33 SQ; +LORA-741 PO; +LVMI SQ; +MECL1TAB42 PO; +NVLGI/PEN SQ; +ONDA4TAB54 PO; +PANT40TA PO; +PRD/1 PO; +ROSU40TA PO; +WARF-246 PO; +WARF4TAB PO; +WARF6TAB PO; +ZOLE5INJ IV; +ZOLP10TA6 PO; +ZOLP5TAB6 PO
== END | disposition home or self-care (01) ==
LOC: C.LAB1850 15:18
PROVIDERS: ATTEND Internal Medicine
DX: M35.3 Polymyalgia rheumatica (principal)

== ENCOUNTER 2016-07-16 16:17 | Emergency (ER) | payer OTHER ==
[~2016-07-16] VITALS: Ht 167.6 cm; Wt 78.6 kg
[~2016-07-16 16:17] MED LIST changes: -AZIT500T PO; -CHOL4POW5 PO; -CITA20TA4 PO; -CLOP1TAB15 PO; -ESCI1TAB6 PO; -GABA-112 PO; -INSU1INJ33 SQ; -LORA-741 PO; -LVMI SQ; -MECL1TAB42 PO; -NVLGI/PEN SQ; -ONDA4TAB54 PO; -PANT40TA PO; -PRD/1 PO; -ROSU40TA PO; -WARF-246 PO; -WARF4TAB PO; -WARF6TAB PO; -ZOLE5INJ IV; -ZOLP10TA6 PO; -ZOLP5TAB6 PO
[2016-07-16 16:18] VITALS: TEMP 36.6; Ht 167.6 cm; Wt 78.6 kg
--- NOTE | 2016-07-16 17:52 | EMERGENCY ROOM VISIT NOTE ---
History Report prepared by Ivana: Daya Pandya Under the Supervision of: Dr. Lalitha Nguyen M.D. First contact with patient: 17:35 Chief Complaint: HYPOTENSION Stated Complaint: LOW BP History of Present Illness The patient is an 81 year old female who presents to the Emergency Room via with complaints of persistent hypotension with onset three days ago. The patient notes that a nurse who visits her home checked her blood pressure three days ago. She was told that her blood pressure was low and that the patient should check her blood pressure until she could see her doctor in one week. The patient states that she does not usually check her blood pressure, but that she has been checking her blood pressure since the nursing visit. She states that her blood pressure has been low most days. Today, the patient measured her blood pressure at home with a wrist cuff; her blood pressure was 81 /61. The patient and her then became concerned. The patient notes that she has had some episodes of lightheadedness. 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 She states that she has been eating and drinking normally. She denies headache, chest pain, loss of consciousness. The patient takes Coumadin. The patient has a history of a stroke, having had a stroke 4 months ago. Source of History: patient, spouse/significant other Onset: 3 days ago Position: other (global) Quality: other (hypotension) Timing: other (persistent) Associated Symptoms: + nausea, No LOC, No chest pain (none currently), No headache Note: The patient has been lightheaded. Review of Systems See HPI for pertinent positives & negatives. A total of 10 systems reviewed and were otherwise negative. Past Medical & Surgical Medical Problems: (1) CAD (coronary artery disease) (2) Carcinoma of colon (3) Colectomy (4) Coronary artery disease involving picayune coronary artery (5) Diabetes (6) Dizziness (7) Familial combined hyperlipidemia (8) Peptic ulcer (9) Rheumatoid arthritis (10) Stable angina (11) Vertigo Surgical Problems: (1) History of cholecystectomy (2) History of colectomy (3) Removal of pin, plate, lulu, or screw (4) S/P CABG x 3 Family History Cancer Diabetes mellitus FHx: aneurysm Heart disease Hypertension Social History Smoking Status: Never Smoker Alcohol Use: none Drug Use: none Marital Status: Housing Status: lives with significant other Occupation Status: retired Current/Historical Medications Scheduled Aspirin (Aspirin Ec), 81 MG PO DAILY Calcium Carbonate-Cholecalcife (Calcium 600 + D 600-200 mg-Unit), 1 TABS PO BID Cholecalciferol (Vitamin D3), 2,000 INTER.UNIT PO BID Insulin Aspart (Novolog Flexpen), 12 UNITS SC UD Insulin Aspart (Novolog Flexpen), 14 UNITS SQ SUPPER Insulin Detemir (Levemir), 10 UNITS SQ QPM Isosorbide Mononitrate (Isosorbide Mononitrate ER), 30 MG PO QAM Losartan Potassium (Cozaar), 100 MG PO DAILY Metoprolol Succinate (Metoprolol Succinate ER), 100 MG PO QPM Pantoprazole (Pantoprazole Sodium), 40 MG PO DAILY Prednisone (Prednisone), 10 MG PO QAM Prednisone (Prednisone), 5 MG PO QPM Rosuvastatin Calcium (Rosuvastatin Calcium), 40 MG PO DAILY Warfarin Sodium (Warfarin Sodium), 5 MG PO DAILY Zoledronic Acid (Reclast), 1 DOSE INJ YEARLY Zolpidem Tartrate (Zolpidem Tartrate), 5 MG PO DAILY Scheduled PRN Acetaminophen (Tylenol Extra Strength), 1,000 MG PO TID PRN for Pain Lorazepam (Ativan), 0.5 MG PO TID PRN for Anxiety Nitroglycerin (Nitrostat), 0.4 MG UT UD PRN for Chest Pain Allergies Coded Allergies: Cefadroxil (Verified Allergy, Intermediate, UNKNOWN, 05/18/16) Clindamycin (Verified Allergy, Intermediate, UNKNOWN, 05/18/16) Levofloxacin (Verified Allergy, Intermediate, UNKNOWN, 05/18/16) Metronidazole (Verified Allergy, Intermediate, UNKNOWN, 05/18/16) Amoxicillin (Verified Adverse Reaction, Mild, diarrhea, 05/18/16) Clavulanic Acid (Verified Adverse Reaction, Mild, diarrhea, 05/18/16) Metformin (Verified Adverse Reaction, Mild, diarreha, 05/18/16) Sitagliptin (Verified Adverse Reaction, Mild, diarreha, 05/18/16) Physical Exam Vital Signs Date Time Temp Pulse Resp B/P Pulse Ox O2 Delivery O2 Flow Rate FiO2 07/16/16 21:06 83 20 157/86 94 07/16/16 20:00 83 20 157/86 94 Room Air 07/16/16 19:30 80 31 168/87 95 Room Air 07/16/16 18:51 74 21 160/86 97 Room Air 07/16/16 18:22 73 17 95 07/16/16 18:17 73 17 96 07/16/16 18:12 74 18 96 07/16/16 18:07 75 17 96 07/16/16 18:02 74 23 96 07/16/16 17:57 73 19 96 07/16/16 17:52 76 19 95 07/16/16 17:47 72 17 97 07/16/16 17:46 Room Air 07/16/16 17:43 82 07/16/16 17:42 80 23 95 07/16/16 17:41 182/98 07/16/16 16:18 36.6 92 18 170/92 95 Room Air Physical Exam Vital signs reviewed. General: Chronically ill appearing, in no distress. HEENT: No scleral icterus, PERRLA, neck supple. Atraumatic. Cardiovascular: Regular rate and rhythm, no extra sounds. Pulmonary: Clear to auscultation bilaterally, normal work of breathing. Abdomen: Soft, nontender, nondistended, positive bowel sounds. Musculoskeletal: Atraumatic, no peripheral edema. Neurologic: Patient awake alert and oriented x 3. Skin: Warm, dry, no rash Psychologic: Tearful, anxious, admits to fleeting suicidal thoughts in the last three months. No plan. No homicidal thoughts. Medical Decision & Procedures Laboratory Results 07/16/16 18:00 Red Blood Count 4.26, Mean Corpuscular Volume 92.7, Mean Corpuscular Hemoglobin 30.5, Mean Corpuscular Hemoglobin Concent 32.9, Mean Platelet Volume 9.7, Neutrophils (%) (Auto) 67.8, Lymphocytes (%) (Auto) 18.2, Monocytes (%) (Auto) 13.0, Eosinophils (%) (Auto) 0.5, Basophils (%) (Auto) 0.1, Neutrophils # (Auto ) 5.18, Lymphocytes # (Auto) 1.39, Monocytes # (Auto) 0.99, Eosinophils # (Auto ) 0.04, Basophils # (Auto) 0.01 07/16/16 18:00 Test 07/16/16 18:00 07/16/16 18:08 07/16/16 19:05 White Blood Count 7.64 K/uL (4.8-10.8) Red Blood Count 4.26 M/uL (4.2-5.4) Hemoglobin 13.0 g/dL (12.0-16.0) Hematocrit 39.5 % (37-47) Mean Corpuscular Volume 92.7 fL (80-100) Mean Corpuscular Hemoglobin 30.5 pg (25-34) Mean Corpuscular Hemoglobin Concent 32.9 g/dl (32-36) Platelet Count 142 K/uL (130-400) Mean Platelet Volume 9.7 fL (7.4-10.4) Neutrophils (%) (Auto) 67.8 % Lymphocytes (%) (Auto) 18.2 % Monocytes (%) (Auto) 13.0 % Eosinophils (%) (Auto) 0.5 % Basophils (%) (Auto) 0.1 % Neutrophils # (Auto) 5.18 K/uL (1.4-6.5) Lymphocytes # (Auto) 1.39 K/uL (1.2-3.4) Monocytes # (Auto) 0.99 K/uL (0.11-0.59) Eosinophils # (Auto) 0.04 K/uL (0-0.5) Basophils # (Auto) 0.01 K/uL (0-0.2) RDW Standard Deviation 55.3 fL (36.4-46.3) RDW Coefficient of Variation 16.3 % (11.5-14.5) Immature Granulocyte % (Auto) 0.4 % Immature Granulocyte # (Auto) 0.03 K/uL (0.00-0.02) Anion Gap 10.0 mmol/L (3-11) Est Creatinine Clear Calc Drug Dose 39.5 ml/min Estimated GFR () 49.4 Estimated GFR (Non- 42.7 BUN/Creatinine Ratio 21.8 (10-20) Calcium Level 8.9 mg/dl (8.5-10.1) Magnesium Level 2.1 mg/dl (1.8-2.4) Total Bilirubin 0.4 mg/dl (0.2-1) Direct Bilirubin < 0.1 mg/dl (0-0.2) Aspartate Amino Transf (AST/SGOT) 25 U/L (15-37) Alanine Aminotransferase (ALT/SGPT) 38 U/L (12-78) Alkaline Phosphatase 64 U/L (45-117) Total Creatine Kinase 31 U/L (26-192) Creatine Kinase MB 1.0 ng/ml (0.5-3.6) Creatine Kinase MB Ratio 3.2 (0-3.0) Total Protein 6.8 gm/dl (6.4-8.2) Albumin 3.3 gm/dl (3.4-5.0) Bedside Troponin I 0.010 ng/ml (0-0.045) Urine Color YELLOW Urine Appearance CLEAR (CLEAR) Urine pH 5.5 (4.5-7.5) Urine Specific [place] 1.010 (1.000-1.030) Urine Protein NEG (NEG) Urine Glucose (UA) 3+ (NEG) Urine Ketones NEG (NEG) Urine Occult Blood NEG (NEG) Urine Nitrite NEG (NEG) Urine Bilirubin NEG (NEG) Urine Urobilinogen NEG (NEG) Urine Leukocyte Esterase NEG (NEG) Laboratory results per my review. Medications Administered Medications (Trade) Dose Ordered Sig/Sincere Route Start Time Stop Time Status Last Admin Dose Admin Lorazepam (Ativan 1MG Home Pack) 1 homepack UD ONCE PO 07/16/16 21:00 07/16/16 21:01 DC 07/16/16 21:06 1 HOMEPACK ECG Indication: other (dizzy ) Rate (beats per minute): 74 Rhythm: normal sinus Findings: no ectopy, other (ST changes diffusely, previous septal infarct ) ED Course 175: Past medical records reviewed. The patient was evaluated in room C12. A complete history and physical examination was performed. 2014: Upon reevaluation, the patient appeared to have improvement of her symptoms. I discussed findings with the patient. She verbalized agreement of the treatment plan. The patient was discharged home. 2049: I contacted Dr. Danielle who was covering for the patient's primary care doctor. We discussed the case and he will ensure that the patient will follow up as an outpatient in the office during the next few days. 2100: Ativan 1 mg homepack 1 homepack PO Medical Decision The patient is an 81 year old female who presents to the ED with complaints of hypotension. Differentials include: Differential diagnosis: Etiologies such as benign positional vertigo, dehydration, hypovolemia, anemia, tumor, infection, hypoglycemia, electrolyte abnormalities, cardiac sources, intracerebral event, toxicologic, neurologic, as well as others were entertained. This patient was evaluated and appeared to be in no significant distress. Patient's blood pressure is noted to be elevated. She was monitored and her blood pressure seemed to be persistently elevated. There is no documented hypotension. Patient's laboratory work is fairly unrevealing. Patient was tearful occasionally. When she was questioned about this, she admitted that she has been depressed since her stroke. She is on blood thinners and her would not let her so any longer because he is afraid she will hurt her self and bleed. Patient feels as though she has not a productive person and is becoming depressed. She states that she is having occasional thoughts over the last 3 months of dying or suicide however she has had no plan or intention of carrying out this action. The patient has not yet spoken to her primary care physician about these things. She is taking Ambien to sleep at night but states she wakes up after 4-5 hours. At this time the patient is not actively suicidal and I feel she is safe to be discharged to her 's care. I did speak with Dr. Danielle who is covering for the patient's outpatient provider, Dr. Flores. He will arrange short-term follow-up this week. Patient was discharged with an Ativan home pack and a prescription was sent to the pharmacy. She was discharged to her 's care and will return for worsening of symptoms or any medical concerns. Consults Time Called: 2044 Consulting Physician: Dr. Danielle (Primary Care) Returned Call: [address] Danielle (Primary Care) who was covering for the patient's primary care doctor. We discussed the case and he will ensure that the patient will follow up as an outpatient in the office during the next few days. Impression Primary Impression: Labile blood pressure Additional Impression: Anxiety Scribe Attestation The scribe's documentation has been prepared under my direction and personally reviewed by me in its entirety. I confirm that the note above accurately reflects all work, treatment, procedures, and medical decision making performed by me. Departure Information Dispostion Home / Self-Care Prescriptions Lorazepam (ATIVAN) 0.5 Mg Tab 0.5 MG PO TID Y for Anxiety, #20 TAB Prov: Wendy, Lalitha B.,M.D. 07/16/16 Referrals Davion Flores M.D. (PCP) Forms HOME CARE DOCUMENTATION FORM, IMPORTANT VISIT INFORMATION, WORK / SCHOOL INSTRUCTIONS Patient Instructions My [facility] Additional Instructions Diagnosis: Labile blood pressure, anxiety Continue your medications as prescribed. Ativan 0.5 mg three times daily as needed for anxiety. Please contact your PCP this week for reevaluation of blood pressure and anxiety. You will likely need to consider starting medication and counseling. If you feel symptomatic, dizzy, chest pain, confusion, please check your blood pressure. Follow-up with your physician on Monday for reevaluation and blood pressure recheck. Return to the ER for worsening of symptoms or any medical concerns. Problem Qualifiers
[2016-07-16 18:08] LABS: BASO % 0.1 %; BASO ABS # 0.01 K/uL (0-0.2); COMPLETE YES; EOS % 0.5 %; HEMATOCRIT 39.5 % (37-47); IG% 0.4 %; LYMPH % 18.2 %; LYMPH ABS # 1.39 K/uL (1.2-3.4); MEAN CELL VOLUME 92.7 fL (80-100); MEAN CORPUSCULAR HEMOGLOBIN 30.5 pg (25-34); MEAN CORPUSCULAR HGB CONC 32.9 g/dl (32-36); MEAN PLATELET VOLUME 9.7 fL (7.4-10.4); NEUT % 67.8 %; PLATELET COUNT 142 K/uL (130-400); RED BLOOD COUNT 4.26 M/uL (4.2-5.4); WHITE BLOOD COUNT 7.64 K/uL (4.8-10.8)
[2016-07-16 18:35] LABS: ALT/SGPT 38 U/L (12-78); BLOOD UREA NITROGEN 26 mg/dl (7-18); BUN/CREATININE RATIO 21.8 (10-20); CALCIUM 8.9 mg/dl (8.5-10.1); CARBON DIOXIDE 24 mmol/L (21-32); CHLORIDE 107 mmol/L (98-107); GLUCOSE 227 mg/dl (70-99); MAGNESIUM 2.1 mg/dl (1.8-2.4); SODIUM 141 mmol/L (136-145)
[2016-07-16] MEDS ORDERED: ZOLP5TAB6 PO (18:37)
[2016-07-16] MEDS ORDERED: LVMI SQ (18:37)
[2016-07-16] MEDS ORDERED: WARF-246 PO (18:37)
[2016-07-16 18:39] LABS: ALKALINE PHOSPHATASE 64 U/L (45-117); AST/SGOT 25 U/L (15-37); CKMB/CK RATIO 3.2 (0-3.0)
[2016-07-16 19:32] LABS: URINE APPEARANCE CLEAR (CLEAR); URINE BILIRUBIN NEG (NEG); URINE COLOR YELLOW; URINE NITRITE NEG (NEG); URINE PH 5.5 (4.5-7.5); UROBILINOGEN NEG (NEG); ZZUR CULT IF INDIC CLEAN CATCH NO
[2016-07-16 19:33] LABS: MANUAL MICROSCOPIC REQUIRED? NO; REVIEW REQ? NO
[2016-07-16] MEDS ORDERED: PRED-301 PO (19:37)
[2016-07-16] MEDS ORDERED: NVLGI/PEN SQ (19:41)
[2016-07-16] MEDS ORDERED: LORA-741 PO (20:52)
[2016-07-16] MEDS ORDERED: ATIVAN 1MG HOMEPACK ONE (20:53)
[2016-07-16] MEDS ORDERED: ATIVAN 1MG HOMEPACK PO ONE (21:00)
[2016-07-16 21:06] VITALS: BP 157/86; PULSE 83; O2SAT 94
[2016-09-15] MEDS ORDERED: GABA-112 PO (20:29)
[2016-09-22] MEDS ORDERED: PRED-301 PO (09:45)
[2016-09-22] MEDS ORDERED: ONDA4TAB54 PO (09:45)
[2016-09-22] MEDS ORDERED: PANT40TA PO (09:45)
[2016-09-22] MEDS ORDERED: CHOL2000 PO (09:45)
[2016-09-22] MEDS ORDERED: AZIT500T PO (09:45)
[2016-10-18] MEDS ORDERED: ESCI1TAB6 PO (09:50)
[2016-10-18] MEDS ORDERED: GABA-112 PO (09:50)
[2016-10-18] MEDS ORDERED: CLOP1TAB15 PO (09:50)
[2016-10-18] MEDS ORDERED: ROSU40TA PO (09:50)
[2016-10-18] MEDS ORDERED: INSU1INJ33 SQ (09:50)
== END 2016-07-16 21:10 | disposition home or self-care (01) ==
LOC: C.EDB 16:17 → C.EDC 21:10
DX: R09.89 Other specified symptoms and signs involving the circulatory and respiratory systems (principal); F41.9 Anxiety disorder, unspecified; E11.9 Type 2 diabetes mellitus without complications; M06.9 Rheumatoid arthritis, unspecified; I25.118 Atherosclerotic heart disease of native coronary artery with other forms of angina pectoris; Z79.899 Other long term (current) drug therapy; Z79.01 Long term (current) use of anticoagulants; Z79.4 Long term (current) use of insulin; Z79.82 Long term (current) use of aspirin; Z79.52 Long term (current) use of systemic steroids; Z86.73 Personal history of transient ischemic attack (TIA), and cerebral infarction without residual deficits; Z85.038 Personal history of other malignant neoplasm of large intestine; Z87.11 Personal history of peptic ulcer disease; Z83.3 Family history of diabetes mellitus; Z82.49 Family history of ischemic heart disease and other diseases of the circulatory system

== ENCOUNTER 2016-07-22 16:34 | Emergency (ER) | payer OTHER ==
[~2016-07-22] VITALS: Ht 167.6 cm; Wt 76.9 kg
[~2016-07-22 16:34] MED LIST changes: +LORA-741 PO; +LVMI SQ; -LVMIPEN SQ; +NVLGI/PEN SQ; +WARF-246 PO; -WARF-283 PO; +ZOLP5TAB6 PO
[2016-07-22 16:48] VITALS: TEMP 36.9
[2016-07-22] MEDS ORDERED: SODIUM CHLORIDE 0.9% 500ML 500 ML IV STA (17:31)
[2016-07-22 17:33] VITALS: O2SAT 94; Ht 167.6 cm; Wt 76.9 kg
[2016-07-22] MEDS ORDERED: MECLIZINE HCL 25 MG TAB PO STA (17:35)
--- NOTE | 2016-07-22 18:06 | EMERGENCY ROOM VISIT NOTE ---
History Report prepared by Ivana: Galen Aguila Under the Supervision of: Dr. Jamison Carroll D.O. First contact with patient: 17:27 Chief Complaint: DIZZY Stated Complaint: DIZZINESS Nursing Triage Summary: Patient states "I was at Dr. Wolff's office and was dizzy. They sent me here. I had a stroke in March 19, 2016." History of Present Illness The patient is an 81 year old female who presents to the Emergency Room with complaints of constant dizziness beginning several hours prior to arrival. She states Dr. Flores's office referred the patient to the ED. The patient notes she took a shower this morning and was putting lotion on her legs, when she began experiencing dizziness. She states she took a nausea pill without relief. The patient notes she had a stroke in March 2016 and open heart surgery on March 18 at [facility]. She states she has a history of spinal stenosis and a broken right hip. The patient denies new medication in the past two months. She denies a headache, chest pain, shortness of breath, nausea, vomiting, fever, chills, neck pain, abdominal pain, and ringing in the ears. 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 A total of 10 systems reviewed and were otherwise negative. Past Medical & Surgical Medical Problems: (1) CAD (coronary artery disease) (2) Carcinoma of colon (3) Colectomy (4) Coronary artery disease involving [place] coronary artery (5) Diabetes (6) Dizziness (7) Familial combined hyperlipidemia (8) Peptic ulcer (9) Rheumatoid arthritis (10) Stable angina (11) Stroke (12) Vertigo Surgical Problems: (1) History of cholecystectomy (2) History of colectomy (3) Removal of pin, plate, lulu, or screw (4) S/P CABG x 3 Family History Cancer Diabetes mellitus FHx: aneurysm Heart disease Hypertension Social History Smoking Status: Never Smoker Alcohol Use: none Drug Use: none Marital Status: Housing Status: lives with significant other Occupation Status: retired Current/Historical Medications Scheduled Aspirin (Aspirin Ec), 81 MG PO DAILY Calcium Carbonate-Cholecalcife (Calcium 600 + D 600-200 mg-Unit), 1 TABS PO BID Cholecalciferol (Vitamin D3), 2,000 INTER.UNIT PO BID Insulin Aspart (Novolog Flexpen), 12 UNITS SC UD Insulin Aspart (Novolog Flexpen), 14 UNITS SQ SUPPER Insulin Detemir (Levemir), 10 UNITS SQ QPM Isosorbide Mononitrate (Isosorbide Mononitrate ER), 30 MG PO QAM Losartan Potassium (Cozaar), 100 MG PO DAILY Metoprolol Succinate (Metoprolol Succinate ER), 100 MG PO QPM Pantoprazole (Pantoprazole Sodium), 40 MG PO DAILY Prednisone (Prednisone), 10 MG PO QAM Prednisone (Prednisone), 5 MG PO QPM Rosuvastatin Calcium (Rosuvastatin Calcium), 40 MG PO DAILY Warfarin Sodium (Warfarin Sodium), 5 MG PO DAILY Zoledronic Acid (Reclast), 1 DOSE INJ YEARLY Zolpidem Tartrate (Zolpidem Tartrate), 5 MG PO DAILY Scheduled PRN Acetaminophen (Tylenol Extra Strength), 1,000 MG PO TID PRN for Pain Lorazepam (Ativan), 0.5 MG PO TID PRN for Anxiety Nitroglycerin (Nitrostat), 0.4 MG UT UD PRN for Chest Pain Allergies Coded Allergies: Cefadroxil (Verified Allergy, Intermediate, UNKNOWN, 05/18/16) Clindamycin (Verified Allergy, Intermediate, UNKNOWN, 05/18/16) Levofloxacin (Verified Allergy, Intermediate, UNKNOWN, 05/18/16) Metronidazole (Verified Allergy, Intermediate, UNKNOWN, 05/18/16) Amoxicillin (Verified Adverse Reaction, Mild, diarrhea, 05/18/16) Clavulanic Acid (Verified Adverse Reaction, Mild, diarrhea, 05/18/16) Metformin (Verified Adverse Reaction, Mild, diarreha, 05/18/16) Sitagliptin (Verified Adverse Reaction, Mild, diarreha, 05/18/16) Physical Exam Vital Signs Date Time Temp Pulse Resp B/P Pulse Ox O2 Delivery O2 Flow Rate FiO2 07/22/16 19:48 86 17 160/78 93 07/22/16 18:41 81 22 158/72 94 Room Air 07/22/16 17:33 94 Room Air 07/22/16 17:33 94 Room Air 07/22/16 17:33 91 07/22/16 17:30 87 18 144/78 94 Room Air 90 148/76 92 117/74 07/22/16 16:48 36.9 98 18 129/85 93 Room Air Physical Exam GENERAL: Patient is awake, alert, and in no acute distress. Patient is resting comfortably and showing no signs of anxiety EYES: The conjunctivae are clear. The pupils are round and reactive. EARS, NOSE, MOUTH AND THROAT: TMs clear bilaterally. The nose is without any evidence of any deformity. Mucous membranes are moist tongue is midline. NECK: The neck is nontender and supple. RESPIRATORY: Normal respiratory effort is noted there is no evidence of wheezing rhonchi or rales CARDIOVASCULAR: Regular rate and rhythm noted there no murmurs rubs or gallops normal S1 normal S2 GASTROINTESTINAL: The abdomen is soft. Bowel sounds are present in all quadrants. Abdomen is nontender MUSCULOSKELETAL/EXTREMITIES: There is no evidence of gross deformity full range of motion is noted in the hips and shoulders SKIN: There is no obvious evidence of any rash. There are no petechiae, pallor or cyanosis noted. NEUROLOGIC: Patient is awake alert and oriented x3 strength is symmetric patellar reflexes are 2+ bilaterally Medical Decision & Procedures ER Provider Diagnostic Interpretation: Radiology results as stated below per my review and radiologist interpretation: CHEST ONE VIEW PORTABLE CLINICAL HISTORY: Altered mental status. Weakness. COMPARISON STUDY: Chest radiograph June 28, 2016. FINDINGS: There are median sternotomy wires and a prosthetic aortic valve. Moderate cardiomegaly is unchanged. There is no evidence of pulmonary edema. No consolidation is identified. There is no pneumothorax or pleural effusion. IMPRESSION: No acute cardiopulmonary findings. No change in appearance of the chest. Electronically signed by: Emmanuel Marino M.D. 07/22/2016 6:[address] OF THE HEAD WITHOUT CONTRAST CLINICAL HISTORY: Altered mental status. Weakness. COMPARISON STUDY: Head CT May 18, 2016 and CTA of the head May 19, 2016. CT DOSE: 537.48 mGy.cm TECHNIQUE: Helical axial images of the head were obtained without IV contrast. Automated exposure control was utilized for the study. FINDINGS: No acute intracranial hemorrhage, midline shift or mass effect is present. Ventricular system is normal. Basilar cisterns are patent. There are no extra-axial collections. An old infarct within the left frontotemporal region is unchanged since head CT of May 18, 2016. Scattered white matter hypodensities are unchanged. The appearance of the brain is unchanged. There are no findings to suggest acute dural sinus thrombosis or acute territorial infarct. No significant calvarial abnormalities are present. Visualized portions of the sinuses and mastoid air cells are clear. There is extensive intracranial vascular calcification. IMPRESSION: 1. No acute intracranial findings. No change since prior exam of May 19, 2016. 2. 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 Electronically signed by: Emmanuel Marino M.D. 07/22/2016 6:50 PM Laboratory Results 07/22/16 18:05 Red Blood Count 4.41, Mean Corpuscular Volume 92.1, Mean Corpuscular Hemoglobin 30.2, Mean Corpuscular Hemoglobin Concent 32.8, Mean Platelet Volume 9.9, Neutrophils (%) (Auto) 77.8, Lymphocytes (%) (Auto) 11.5, Monocytes (%) (Auto) 9.8, Eosinophils (%) (Auto) 0.1, Basophils (%) (Auto) 0.1, Neutrophils # (Auto) 5.49, Lymphocytes # (Auto) 0.81, Monocytes # (Auto) 0.69, Eosinophils # (Auto) 0.01, Basophils # (Auto) 0.01 07/22/16 18:05 Test 07/22/16 18:03 07/22/16 18:05 07/22/16 19:00 Bedside Glucose 184 mg/dl (70-90) White Blood Count 7.06 K/uL (4.8-10.8) Red Blood Count 4.41 M/uL (4.2-5.4) Hemoglobin 13.3 g/dL (12.0-16.0) Hematocrit 40.6 % (37-47) Mean Corpuscular Volume 92.1 fL (80-100) Mean Corpuscular Hemoglobin 30.2 pg (25-34) Mean Corpuscular Hemoglobin Concent 32.8 g/dl (32-36) Platelet Count 160 K/uL (130-400) Mean Platelet Volume 9.9 fL (7.4-10.4) Neutrophils (%) (Auto) 77.8 % Lymphocytes (%) (Auto) 11.5 % Monocytes (%) (Auto) 9.8 % Eosinophils (%) (Auto) 0.1 % Basophils (%) (Auto) 0.1 % Neutrophils # (Auto) 5.49 K/uL (1.4-6.5) Lymphocytes # (Auto) 0.81 K/uL (1.2-3.4) Monocytes # (Auto) 0.69 K/uL (0.11-0.59) Eosinophils # (Auto) 0.01 K/uL (0-0.5) Basophils # (Auto) 0.01 K/uL (0-0.2) RDW Standard Deviation 54.0 fL (36.4-46.3) RDW Coefficient of Variation 16.2 % (11.5-14.5) Immature Granulocyte % (Auto) 0.7 % Immature Granulocyte # (Auto) 0.05 K/uL (0.00-0.02) Prothrombin Time 28.1 SECONDS (9.0-12.0) Prothromb Time International Ratio 2.5 (0.9-1.1) Activated Partial Thromboplast Time 35.2 SECONDS (21.0-31.0) Partial Thromboplastin Ratio 1.4 Anion Gap 12.0 mmol/L (3-11) Est Creatinine Clear Calc Drug Dose 33.6 ml/min Estimated GFR () 41.0 Estimated GFR (Non- 35.4 BUN/Creatinine Ratio 18.3 (10-20) Calcium Level 9.9 mg/dl (8.5-10.1) Magnesium Level 2.2 mg/dl (1.8-2.4) Total Bilirubin 0.5 mg/dl (0.2-1) Direct Bilirubin 0.2 mg/dl (0-0.2) Aspartate Amino Transf (AST/SGOT) 24 U/L (15-37) Alanine Aminotransferase (ALT/SGPT) 34 U/L (12-78) Alkaline Phosphatase 51 U/L (45-117) Troponin I < 0.015 ng/ml (0-0.045) Total Protein 7.0 gm/dl (6.4-8.2) Albumin 3.4 gm/dl (3.4-5.0) Thyroid Stimulating Hormone (TSH) 0.575 uIu/ml (0.300-4.500) Urine Color YELLOW Urine Appearance CLEAR (CLEAR) Urine pH 6.0 (4.5-7.5) Urine Specific [place] 1.010 (1.000-1.030) Urine Protein NEG (NEG) Urine Glucose (UA) 2+ (NEG) Urine Ketones NEG (NEG) Urine Occult Blood NEG (NEG) Urine Nitrite NEG (NEG) Urine Bilirubin NEG (NEG) Urine Urobilinogen NEG (NEG) Urine Leukocyte Esterase NEG (NEG) Laboratory results per my review. Medications Administered Medications (Trade) Dose Ordered Sig/Sincere Route Start Time Stop Time Status Last Admin Dose Admin Sodium Chloride (Nss 500ml) 500 ml @ 999 mls/hr Q31M STAT IV 07/22/16 17:31 07/22/16 18:01 DC 07/22/16 18:07 999 MLS/HR Meclizine HCl (Antivert Tab) 25 mg NOW STAT PO 07/22/16 17:35 07/22/16 17:36 DC 07/22/16 18:07 25 MG Meclizine HCl (Antivert 25MG Home Pack) 1 homepack UD ONCE PO 07/22/16 19:15 07/22/16 19:16 DC 07/22/16 19:21 1 HOMEPACK ECG Indication: other (dizziness) Rate (beats per minute): 76 Rhythm: normal sinus Findings: ST depression (Lateral), no ectopy Comparison ECG Date: 07/16/2016 Change: no significant change ED Course 1730: The patient was evaluated in room C10. A complete history and physical examination were performed. 173: Ordered Sodium Chloride 500 ml @ 999 mls/hr IV. 1734: Ordered Antivert Tab 25 mg PO. 5: Ordered Meclizine HCl 1 homepack PO. 0: Upon reevaluation, the patient is not feeling much better. I discussed the results and treatment plan with her. She verbalized agreement of the treatment plan. The patient was discharged home. Medical Decision Etiologies such as benign positional vertigo, dehydration, hypovolemia, anemia, tumor, infection, hypoglycemia, electrolyte abnormalities, cardiac sources, intracerebral event, toxicologic, neurologic, as well as others were entertained. Nursing notes reviewed. Additional history is obtained from the patient's significant other. The patient is an 81-year-old female who presented to the emergency department for an evaluation of vertigo. The patient describes episodes of vertigo which were worsened with any movement of the head. The symptoms seemed to improved at this time. She has no focal neurologic deficits. She was seen by her primary care physician and sent to the emergency department for a stroke workup. I discussed the patient's laboratory and radiographic studies with her. She was treated with meclizine in the emergency department with very little relief. She was encouraged to rest and avoid any strenuous activity. She was also encouraged to follow-up with her family doctor to discuss the possibility that she may require further studies such as an MRI the brain to further evaluate the cause of her dizziness. She was also encouraged to return the emergency Department immediately if symptoms change worsen or the need arises. Impression Primary Impression: Vertigo Additional Impression: Orthostatic hypotension Scribe Attestation The scribe's documentation has been prepared under my direction and personally reviewed by me in its entirety. I confirm that the note above accurately reflects all work, treatment, procedures, and medical decision making performed by me. Departure Information Dispostion Home / Self-Care Referrals Davion Flores M.D. (PCP) Forms HOME CARE DOCUMENTATION FORM, IMPORTANT VISIT INFORMATION Patient Instructions ED Dizziness O, [facility] Additional Instructions Call your family to schedule a follow-up appointment. You may require further studies to evaluate the cause of dizziness such as an MRI the brain. Rest and avoid any strenuous activity. Return to the emergency department immediately if symptoms change worsen or the need arises. Problem Qualifiers
[2016-07-22 18:17] LABS: BASO % 0.1 %; BASO ABS # 0.01 K/uL (0-0.2); COMPLETE YES; EOS % 0.1 %; HEMATOCRIT 40.6 % (37-47); IG% 0.7 %; LYMPH % 11.5 %; LYMPH ABS # 0.81 K/uL (1.2-3.4); MEAN CELL VOLUME 92.1 fL (80-100); MEAN CORPUSCULAR HEMOGLOBIN 30.2 pg (25-34); MEAN CORPUSCULAR HGB CONC 32.8 g/dl (32-36); MEAN PLATELET VOLUME 9.9 fL (7.4-10.4); MONO % 9.8 %; NEUT % 77.8 %; PLATELET COUNT 160 K/uL (130-400); RED BLOOD COUNT 4.41 M/uL (4.2-5.4); WHITE BLOOD COUNT 7.06 K/uL (4.8-10.8)
[2016-07-22 18:26] LABS: INR 2.5 (0.9-1.1); PARTIAL THROMBOPLASTIN RATIO 1.4; PROTHROMBIN TIME (PATIENT) 28.1 SECONDS (9.0-12.0)
[2016-07-22 18:45] LABS: ALT/SGPT 34 U/L (12-78); AST/SGOT 24 U/L (15-37); BLOOD UREA NITROGEN 26 mg/dl (7-18); BUN/CREATININE RATIO 18.3 (10-20); CALCIUM 9.9 mg/dl (8.5-10.1); CARBON DIOXIDE 27 mmol/L (21-32); CHLORIDE 103 mmol/L (98-107); GLUCOSE 194 mg/dl (70-99); MAGNESIUM 2.2 mg/dl (1.8-2.4); POTASSIUM 4.4 mmol/L (3.5-5.1); SODIUM 142 mmol/L (136-145)
--- NOTE | 2016-07-22 18:51 | DIAGNOSTIC IMAGING REPORT ---
CT OF THE HEAD WITHOUT CONTRAST CLINICAL HISTORY: Altered mental status. Weakness. COMPARISON STUDY: Head CT May 18, 2016 and CTA of the head May 19, 2016. CT DOSE: 537.48 mGy.cm TECHNIQUE: Helical axial images of the head were obtained without IV contrast. Automated exposure control was utilized for the study. FINDINGS: No acute intracranial hemorrhage, midline shift or mass effect is present. Ventricular system is normal. Basilar cisterns are patent. There are no extra-axial collections. An old infarct within the left frontotemporal region is unchanged since head CT of May 18, 2016. Scattered white matter hypodensities are unchanged. The appearance of the brain is unchanged. There are no findings to suggest acute dural sinus thrombosis or acute territorial infarct. No significant calvarial abnormalities are present. Visualized portions of the sinuses and mastoid air cells are clear. There is extensive intracranial vascular calcification. IMPRESSION: 1. No acute intracranial findings. No change since prior exam of May 19, 2016. 2. 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 Electronically signed by: Emmanuel Marino M.D. 07/22/2016 6:50 PM Dictated Date/Time: 07/22/2016 6:45 PM
[2016-07-22 18:56] LABS: ALKALINE PHOSPHATASE 51 U/L (45-117); THYROID STIMULATING HORMONE 0.575 uIu/ml (0.300-4.500)
[2016-07-22] MEDS ORDERED: MECLIZINE HCL 25MG HOME PACK PO ONE (19:15)
[2016-07-22 19:33] LABS: URINE APPEARANCE CLEAR (CLEAR); URINE BILIRUBIN NEG (NEG); URINE COLOR YELLOW; URINE NITRITE NEG (NEG); UROBILINOGEN NEG (NEG)
[2016-07-22 19:34] LABS: MANUAL MICROSCOPIC REQUIRED? NO; REVIEW REQ? NO
[2016-07-22 19:48] VITALS: BP 160/78; PULSE 86; O2SAT 93
[2016-09-15] MEDS ORDERED: GABA-112 PO (20:29)
[2016-09-22] MEDS ORDERED: CHOL2000 PO (09:45)
[2016-09-22] MEDS ORDERED: ONDA4TAB54 PO (09:45)
[2016-09-22] MEDS ORDERED: PRED-301 PO (09:45)
[2016-09-22] MEDS ORDERED: AZIT500T PO (09:45)
[2016-09-22] MEDS ORDERED: PANT40TA PO (09:45)
[2016-10-18] MEDS ORDERED: ESCI1TAB6 PO (09:50)
[2016-10-18] MEDS ORDERED: ROSU40TA PO (09:50)
[2016-10-18] MEDS ORDERED: CLOP1TAB15 PO (09:50)
[2016-10-18] MEDS ORDERED: GABA-112 PO (09:50)
[2016-10-18] MEDS ORDERED: INSU1INJ33 SQ (09:50)
== END 2016-07-22 19:49 | disposition home or self-care (01) ==
LOC: C.EDB 16:35 → C.EDC 19:49
DX: R42 Dizziness and giddiness (principal); I95.1 Orthostatic hypotension; E11.9 Type 2 diabetes mellitus without complications; I25.10 Atherosclerotic heart disease of native coronary artery without angina pectoris; E78.4 Other hyperlipidemia; M06.9 Rheumatoid arthritis, unspecified; Z86.73 Personal history of transient ischemic attack (TIA), and cerebral infarction without residual deficits; Z85.038 Personal history of other malignant neoplasm of large intestine; Z87.11 Personal history of peptic ulcer disease; Z90.49 Acquired absence of other specified parts of digestive tract; Z95.1 Presence of aortocoronary bypass graft; Z98.890 Other specified postprocedural states; Z79.01 Long term (current) use of anticoagulants; Z79.4 Long term (current) use of insulin; Z79.82 Long term (current) use of aspirin; Z79.899 Other long term (current) drug therapy; Z88.1 Allergy status to other antibiotic agents; Z88.8 Allergy status to other drugs, medicaments and biological substances; Z80.9 Family history of malignant neoplasm, unspecified; Z83.3 Family history of diabetes mellitus; Z82.49 Family history of ischemic heart disease and other diseases of the circulatory system

== ENCOUNTER 2016-08-02 04:41 | Emergency (ER) | payer OTHER ==
[~2016-08-02] VITALS: Ht 167.6 cm; Wt 75.7 kg
[~2016-08-02 04:41] MED LIST changes: -LORA-741 PO
[2016-08-02 04:47] VITALS: TEMP 36.5; Ht 167.6 cm; Wt 75.7 kg
[2016-08-02] MEDS ORDERED: ONDANSETRON INJ 2 MG/ML 2 ML VIAL ONE (05:03)
[2016-08-02] MEDS ORDERED: ONDANSETRON INJ 2 MG/ML 2 ML VIAL IV STA (05:07)
[2016-08-02 05:11] VITALS: O2SAT 95
[2016-08-02 05:18] LABS: HEMATOCRIT 40.4 % (37-47); MEAN CELL VOLUME 90.6 fL (80-100); MEAN CORPUSCULAR HGB CONC 33.2 g/dl (32-36); MEAN PLATELET VOLUME 9.5 fL (7.4-10.4); PLATELET COUNT 169 K/uL (130-400); RED BLOOD COUNT 4.46 M/uL (4.2-5.4); WHITE BLOOD COUNT 6.81 K/uL (4.8-10.8)
[2016-08-02 05:29] LABS: INR 2.4 (0.9-1.1); PARTIAL THROMBOPLASTIN RATIO 1.4; PROTHROMBIN TIME (PATIENT) 27.1 SECONDS (9.0-12.0)
[2016-08-02 05:53] LABS: BUN/CREATININE RATIO 16.1 (10-20); CALCIUM 9.7 mg/dl (8.5-10.1); CREATININE 1.1 mg/dl (0.60-1.20); POTASSIUM 3.7 mmol/L (3.5-5.1)
[2016-08-02 05:57] LABS: ALB/GLOB RATIO 0.9 (0.9-2)
[2016-08-02 06:10] LABS: URINE APPEARANCE CLEAR (CLEAR); URINE BILIRUBIN NEG (NEG); URINE COLOR YELLOW; URINE NITRITE NEG (NEG); URINE PH 7.5 (4.5-7.5); URINE SPECIFIC GRAVITY 1.006 (1.000-1.030); UROBILINOGEN NEG (NEG); ZZUR CULT IF INDIC CLEAN CATCH NO
[2016-08-02 06:16] LABS: MANUAL MICROSCOPIC REQUIRED? NO; REVIEW REQ? NO
--- NOTE | 2016-08-02 06:36 | EMERGENCY ROOM VISIT NOTE ---
History Report prepared by Ivana: Constance Dotson Under the Supervision of: Dr. Fanny Best D.O. First contact with patient: 05:08 Chief Complaint: CARDIAC ASSESSMENT Stated Complaint: CHEST DISCOMFORT,NAUSEA S/P HEART SURGERY 03/18/16 Nursing Triage Summary: pt reports 'nausea since march after my heart surgery' pt reports 'feeling weak' denies vomiting. pt reports 'some chest pain' pt reports having a stroke the day after her valve replacement. pt reports she has residual right sided weakness. History of Present Illness The patient is an 81 year old female who presents to the Emergency Room with complaints of persistent nausea that has worsened yesterday. Per records the patient had a valve replacement in March. Records indicate that the day after surgery the patient had a stroke, that left residual right sided weakness and dysphagia. The patient states that ever since her surgery and stroke, she is persistently nauseous. She states that her nausea was worse this morning and additionally noticed chest wall pain that is sensitive to touch. The patient states that she feels lousy and fatigued today. She states that her chest discomfort began this morning when she woke and walked to the bathroom. The patient states that she hasn't been able to sleep without sleeping pills, and states that she slept approximately 2 hours last night with the sleeping pills. She notes that she tries to avoid taking her prescribed nausea medications often, but states that she took some yesterday. The patient states that she didn't feel well intermittently yesterday. She denies any abdominal pain. The patient reports normal appetite and fluid intake. The patient additionally notes vision disturbance since her stroke. She states that she followed up with her plumbing and heating mechanic, but states no findings were found. Source of History: patient Onset: yesterday Position: other (global) Quality: other (nausea) Timing: worsening, other (persistent) Associated Symptoms: + chest pain (chest wall pain), + fatigue Note: Associated Symptoms: vision disturbance, feeling lousy Review of Systems See HPI for pertinent positives & negatives. A total of 10 systems reviewed and were otherwise negative. Past Medical & Surgical Medical Problems: (1) CAD (coronary artery disease) (2) Carcinoma of colon (3) Colectomy (4) Coronary artery disease involving belkofski coronary artery (5) Diabetes (6) Dizziness (7) Familial combined hyperlipidemia (8) Peptic ulcer (9) Rheumatoid arthritis (10) Stable angina (11) Stroke (12) Vertigo Surgical Problems: (1) History of cholecystectomy (2) History of colectomy (3) Removal of pin, plate, lulu, or screw (4) S/P CABG x 3 Family History Cancer Diabetes mellitus FHx: aneurysm Heart disease Hypertension Social History Smoking Status: Never Smoker Alcohol Use: none Drug Use: none Marital Status: Housing Status: lives with significant other Occupation Status: retired Current/Historical Medications Scheduled Aspirin (Aspirin Ec), 81 MG PO DAILY Calcium Carbonate-Cholecalcife (Calcium 600 + D 600-200 mg-Unit), 1 TABS PO BID Cholecalciferol (Vitamin D3), 2,000 INTER.UNIT PO BID Insulin Aspart (Novolog Flexpen), 12 UNITS SC UD Insulin Aspart (Novolog Flexpen), 14 UNITS SQ SUPPER Insulin Detemir (Levemir), 10 UNITS SQ QPM Isosorbide Mononitrate (Isosorbide Mononitrate ER), 30 MG PO QAM Losartan Potassium (Cozaar), 100 MG PO DAILY Metoprolol Succinate (Metoprolol Succinate ER), 100 MG PO QPM Pantoprazole (Pantoprazole Sodium), 40 MG PO DAILY Prednisone (Prednisone), 10 MG PO QAM Prednisone (Prednisone), 5 MG PO QPM Rosuvastatin Calcium (Rosuvastatin Calcium), 40 MG PO DAILY Warfarin Sodium (Warfarin Sodium), 5 MG PO DAILY Zoledronic Acid (Reclast), 1 DOSE INJ YEARLY Zolpidem Tartrate (Zolpidem Tartrate), 5 MG PO DAILY Scheduled PRN Acetaminophen (Tylenol Extra Strength), 1,000 MG PO TID PRN for Pain Nitroglycerin (Nitrostat), 0.4 MG UT UD PRN for Chest Pain Allergies Coded Allergies: Cefadroxil (Verified Allergy, Intermediate, UNKNOWN, 08/02/16) Clindamycin (Verified Allergy, Intermediate, UNKNOWN, 08/02/16) Levofloxacin (Verified Allergy, Intermediate, UNKNOWN, 08/02/16) Metronidazole (Verified Allergy, Intermediate, UNKNOWN, 08/02/16) Amoxicillin (Verified Adverse Reaction, Mild, diarrhea, 08/02/16) Clavulanic Acid (Verified Adverse Reaction, Mild, diarrhea, 08/02/16) Metformin (Verified Adverse Reaction, Mild, diarreha, 08/02/16) Sitagliptin (Verified Adverse Reaction, Mild, diarreha, 08/02/16) Physical Exam Vital Signs Date Time Temp Pulse Resp B/P Pulse Ox O2 Delivery O2 Flow Rate FiO2 08/02/16 06:41 74 18 182/80 95 Nasal Cannula 2.0 08/02/16 05:11 95 Nasal Cannula 2.0 08/02/16 05:02 90 Room Air 08/02/16 04:59 82 08/02/16 04:56 Room Air 08/02/16 04:47 36.5 85 22 146/87 98 Room Air Physical Exam HEENT: Head - normocephalic and atraumatic Pupils are equal, round, and reactive to light. Extraocular eye muscles are intact, and sclera are anicteric. Nose - moist nasal mucosa without discharge. Mouth - dry buccal mucosa. Oropharynx is nonerythematous and there is no tonsillar exudate or edema noted. Neck: Supple; no JVD, nuchal rigidity, cervical lymphadenopathy. Heart: Regular rate and rhythm. There is a normal S1 and S2 with no murmurs, clicks, or gallops appreciated. Lungs: Clear to auscultation bilaterally with no wheezes, rales, or rhonchi. Abdomen: Soft, completely nontender, nondistended, with good bowel sounds. There are no palpable pulsatile masses or hepatosplenomegaly. There is no guarding, rigidity, or rebound noted. Extremities: No evidence of cyanosis, clubbing, or edema. There are easily palpable peripheral pulses. Skin: warm and dry with good turgor and no rashes. Medical Decision & Procedures ER Provider Diagnostic Interpretation: 1 view chest x-ray: sternotomy wires in place no obvious pleural effusion or consolidation Laboratory Results 08/02/16 05:10 08/02/16 05:10 Test 08/02/16 05:10 08/02/16 05:20 Red Blood Count 4.46 M/uL (4.2-5.4) Mean Corpuscular Volume 90.6 fL (80-100) Mean Corpuscular Hemoglobin 30.0 pg (25-34) Mean Corpuscular Hemoglobin Concent 33.2 g/dl (32-36) RDW Standard Deviation 52.4 fL (36.4-46.3) RDW Coefficient of Variation 15.8 % (11.5-14.5) Mean Platelet Volume 9.5 fL (7.4-10.4) Nucleated RBC Absolute Count (auto) 0.02 K/uL (0-0) Nucleated Red Blood Cells % 0.3 % Prothrombin Time 27.1 SECONDS (9.0-12.0) Prothromb Time International Ratio 2.4 (0.9-1.1) Activated Partial Thromboplast Time 35.8 SECONDS (21.0-31.0) Partial Thromboplastin Ratio 1.4 Anion Gap 8.0 mmol/L (3-11) Est Creatinine Clear Calc Drug Dose 42.4 ml/min Estimated GFR () 54.9 Estimated GFR (Non- 47.4 BUN/Creatinine Ratio 16.1 (10-20) Calcium Level 9.7 mg/dl (8.5-10.1) Total Bilirubin 0.5 mg/dl (0.2-1) Aspartate Amino Transf (AST/SGOT) 26 U/L (15-37) Alanine Aminotransferase (ALT/SGPT) 40 U/L (12-78) Alkaline Phosphatase 56 U/L (45-117) Total Creatine Kinase 23 U/L (26-192) Creatine Kinase MB 0.7 ng/ml (0.5-3.6) Creatine Kinase MB Ratio 3.0 (0-3.0) Troponin I < 0.015 ng/ml (0-0.045) Total Protein 7.0 gm/dl (6.4-8.2) Albumin 3.4 gm/dl (3.4-5.0) Globulin 3.6 gm/dl (2.5-4.0) Albumin/Globulin Ratio 0.9 (0.9-2) Urine Color YELLOW Urine Appearance CLEAR (CLEAR) Urine pH 7.5 (4.5-7.5) Urine Specific [place] 1.006 (1.000-1.030) Urine Protein NEG (NEG) Urine Glucose (UA) NEG (NEG) Urine Ketones NEG (NEG) Urine Occult Blood NEG (NEG) Urine Nitrite NEG (NEG) Urine Bilirubin NEG (NEG) Urine Urobilinogen NEG (NEG) Urine Leukocyte Esterase NEG (NEG) Laboratory results per my review. Medications Administered Medications (Trade) Dose Ordered Sig/Sincere Route Start Time Stop Time Status Last Admin Dose Admin Ondansetron HCl (Zofran Inj) 4 mg NOW STAT IV 08/02/16 05:07 08/02/16 05:11 DC 08/02/16 05:13 4 MG ECG Indication: nausea Rate (beats per minute): 83 Rhythm: normal sinus Findings: ST depression (Inferior, mild), no ectopy Comparison ECG Date: 07/22/16 Change: no significant change ED Course 0507: Ordered Zofran Inj 4 mg IV. 0527: Past medical records reviewed. The patient was evaluated in room A3. A complete history and physical exam was performed. A twelve-lead EKG was obtained. Laboratory studies were drawn as above. The patient had chest x-ray as described above. 0635: I reevaluated the patient and she is resting. I discussed the exam findings with her and I discussed the treatment plan. She verbalized complete understanding and agreement. She is ready to go home. I had a very lengthy conversation with the patient and her about the ongoing symptoms since her stroke-sleep deprivation, visual changes, loss of taste, and anxiety. I made some suggestions as to how to manage some of these symptoms. Medical Decision The patient is an 81 year old female who presents to the ED with nausea. Differential diagnosis includes anxiety, GERD, ischemic chest pain, chest wall pain, sleep deprivation. Labs: normal white count, stable H&H, normal urinalysis, normal renal functions and LFTs, negative cardiac enzymes, normal renal functions, INR 2.4, urinalysis is negative. The patient seemed quite anxious on exam. She was tearful at times. She seems quite frustrated with her situation. She is planning to follow-up at [place] for additional visual testing. I explained to her that sleep deprivation can magnify everything. I suggested that she try using Benadryl for sleep since then she has never tried that. If that doesn't work, she should go back to the [facility] and discussed the situation with her PCP. I believe that the patient's blurry vision or visual disturbance may be making her nauseated. It is quite important that she get that figured out. As for the patient's chest pain, it seems to be reproducible. She has a normal EKG and negative cardiac enzymes. She has had 2 normal cardiac catheterizations within the past 6 months. Impression Primary Impression: Sleep deprivation Additional Impression: Chest wall pain following surgery Scribe Attestation The scribe's documentation has been prepared under my direction and personally reviewed by me in its entirety. I confirm that the note above accurately reflects all work, treatment, procedures, and medical decision making performed by me. Departure Information Dispostion Home / Self-Care Referrals Davion Flores M.D. (PCP) Forms IMPORTANT VISIT INFORMATION Patient Instructions Insomnia, Insomnia Tx, My [facility] Additional Instructions Take benadryl - 50mg for sleep. Follow up with Dr. Flores about severe sleep disturbance. Focus on the positives in life. Walk outside with your walker when it is warm. Problem Qualifiers
[2016-08-02 06:41] VITALS: BP 182/80; PULSE 74; O2SAT 95
--- NOTE | 2016-08-02 07:24 | DIAGNOSTIC IMAGING REPORT ---
CHEST ONE VIEW PORTABLE CLINICAL HISTORY: Cardiac assessment. COMPARISON STUDY: Chest radiograph] 2016. FINDINGS: There are median sternotomy wires and a prosthetic aortic valve. Moderate cardiomegaly is unchanged. There is no evidence of pulmonary edema. Linear left lung opacities are suggestive of atelectasis. No consolidation is identified. There is no pneumothorax or pleural effusion. IMPRESSION: No acute cardiopulmonary findings. No change in appearance of the chest. Electronically signed by: Emmanuel Marino M.D. 08/02/2016 7:23 AM Dictated Date/Time: 08/02/2016 7:22 AM
[2016-09-15] MEDS ORDERED: GABA-112 PO (20:29)
[2016-09-22] MEDS ORDERED: PRED-301 PO (09:45)
[2016-09-22] MEDS ORDERED: AZIT500T PO (09:45)
[2016-09-22] MEDS ORDERED: ONDA4TAB54 PO (09:45)
[2016-09-22] MEDS ORDERED: PANT40TA PO (09:45)
[2016-09-22] MEDS ORDERED: CHOL2000 PO (09:45)
[2016-10-18] MEDS ORDERED: GABA-112 PO (09:50)
[2016-10-18] MEDS ORDERED: ROSU40TA PO (09:50)
[2016-10-18] MEDS ORDERED: CLOP1TAB15 PO (09:50)
[2016-10-18] MEDS ORDERED: ESCI1TAB6 PO (09:50)
[2016-10-18] MEDS ORDERED: INSU1INJ33 SQ (09:50)
== END 2016-08-02 07:08 | disposition home or self-care (01) ==
LOC: C.EDB 04:42 → C.EDA 07:08
DX: Z72.820 Sleep deprivation (principal); R07.9 Chest pain, unspecified; R11.0 Nausea; R53.83 Other fatigue; I25.10 Atherosclerotic heart disease of native coronary artery without angina pectoris; Z86.73 Personal history of transient ischemic attack (TIA), and cerebral infarction without residual deficits; Z85.038 Personal history of other malignant neoplasm of large intestine; Z95.2 Presence of prosthetic heart valve; M06.9 Rheumatoid arthritis, unspecified; Z79.899 Other long term (current) drug therapy; Z79.01 Long term (current) use of anticoagulants

== ENCOUNTER 2016-08-04 20:04 | Emergency (ER) | payer OTHER ==
[~2016-08-04] VITALS: Ht 167.6 cm; Wt 78.3 kg
[2016-08-04 20:38] VITALS: TEMP 36.8; Ht 167.6 cm; Wt 78.3 kg
[2016-08-04 21:02] VITALS: O2SAT 95
--- NOTE | 2016-08-04 21:05 | DIAGNOSTIC IMAGING REPORT ---
CHEST ONE VIEW PORTABLE CLINICAL HISTORY: Atypical chest pain COMPARISON STUDY: 08/02/2016 FINDINGS: There are postsurgical changes of midline sternotomy. The heart is mildly enlarged. There is aortic tortuosity. There is no overt failure. There is no focal pulmonary consolidation. There are no pleural effusions.[ IMPRESSION: No active disease in the chest. Electronically signed by: Ady Mendez M.D. 08/04/2016 9:04 PM Dictated Date/Time: 08/04/2016 9:03 PM
[2016-08-04 21:10] LABS: HEMATOCRIT 38.1 % (37-47); MEAN CELL VOLUME 93.2 fL (80-100); MEAN CORPUSCULAR HEMOGLOBIN 30.1 pg (25-34); MEAN CORPUSCULAR HGB CONC 32.3 g/dl (32-36); MEAN PLATELET VOLUME 9.5 fL (7.4-10.4); PLATELET COUNT 185 K/uL (130-400); RED BLOOD COUNT 4.09 M/uL (4.2-5.4); WHITE BLOOD COUNT 8.02 K/uL (4.8-10.8)
[2016-08-04 21:21] LABS: INR 2.7 (0.9-1.1); PARTIAL THROMBOPLASTIN RATIO 1.3; PROTHROMBIN TIME (PATIENT) 30.6 SECONDS (9.0-12.0)
[2016-08-04 21:32] LABS: BUN/CREATININE RATIO 17.4 (10-20); CALCIUM 9.5 mg/dl (8.5-10.1); CREATININE 1.4 mg/dl (0.60-1.20); POTASSIUM 3.8 mmol/L (3.5-5.1)
[2016-08-04 21:36] LABS: ALB/GLOB RATIO 0.9 (0.9-2); CKMB/CK RATIO 4.1 (0-3.0)
--- NOTE | 2016-08-04 22:22 | EMERGENCY ROOM VISIT NOTE ---
History Report prepared by Ivana: Domenico Beal. Under the Supervision of: Dr. Efren Benjamin M.D. First contact with patient: 21:57 Chief Complaint: CARDIAC ASSESSMENT Stated Complaint: CHEST PAIN Nursing Triage Summary: patient brought in by ems patient reports headache for 2 weeks and reports left sided chest/back pain into left arm today patient hx of coming to the ER for dizziness History of Present Illness The patient is a 81 year old female who presents to the Emergency Room with complaints of episodes of left sided chest pain occurring about 4 hours ago. She notes the pain radiates to her arm and lasts about 5 minutes. She rates the pain an 8/10 in severity when the pain is present. This evening, she began to have pain in the back of her head, and after sitting down she experienced the left sided chest pain which radiated into her arm. She notes this pain did not cause her to become short or breath, nauseous, or sweaty. She took 2 nitroglycerin and 2 baby Aspirin which helped to resolve the pain. She notes she had another episode about 1 hour ago. She reports that nothing initiates the pain. The patient notes she had an aortic valve replacement and 3 bypasses in March of 2016. She had a cardiac catheterization in May of 2016 which showed no concerning coronary disease, and she presented to the ER here last month for chest pain which was noted to be non-cardiac. The patient adds that she has had ongoing dizziness and headaches for the past 2 weeks--she has been worked up for this issue without any concerning findings. She reports she is currently on Coumadin. Source of History: patient Onset: about 4 hours ago Position: chest (left) Symptom Intensity: 8/10 in severity Quality: other (chest pain) Timing: other (episodes) Modifying Factors (Relieving): other (nitroglycerin and aspirin) Associated Symptoms: + headache, No SOB, No diaphoresis, No nausea Review of Systems See HPI for pertinent positives & negatives. A total of 10 systems reviewed and were otherwise negative. Past Medical & Surgical Medical Problems: (1) CAD (coronary artery disease) (2) Carcinoma of colon (3) Colectomy (4) Coronary artery disease involving ambler coronary artery (5) Diabetes (6) Dizziness (7) Familial combined hyperlipidemia (8) Peptic ulcer (9) Rheumatoid arthritis (10) Stable angina (11) Stroke (12) Vertigo Surgical Problems: (1) History of cholecystectomy (2) History of colectomy (3) Removal of pin, plate, lulu, or screw (4) S/P CABG x 3 Family History Cancer Diabetes mellitus FHx: aneurysm Heart disease Hypertension Social History Smoking Status: Never Smoker Alcohol Use: none Drug Use: none Marital Status: Housing Status: lives with significant other Occupation Status: retired Current/Historical Medications Scheduled Aspirin (Aspirin Ec), 81 MG PO DAILY Calcium Carbonate-Cholecalcife (Calcium 600 + D 600-200 mg-Unit), 1 TABS PO BID Cholecalciferol (Vitamin D3), 2,000 INTER.UNIT PO BID Insulin Aspart (Novolog Flexpen), 12 UNITS SC UD Insulin Aspart (Novolog Flexpen), 14 UNITS SQ SUPPER Insulin Detemir (Levemir), 10 UNITS SQ QPM Isosorbide Mononitrate (Isosorbide Mononitrate ER), 30 MG PO QAM Losartan Potassium (Cozaar), 100 MG PO DAILY Metoprolol Succinate (Metoprolol Succinate ER), 100 MG PO QPM Pantoprazole (Pantoprazole Sodium), 40 MG PO DAILY Prednisone (Prednisone), 10 MG PO QAM Prednisone (Prednisone), 5 MG PO QPM Rosuvastatin Calcium (Rosuvastatin Calcium), 40 MG PO DAILY Warfarin Sodium (Warfarin Sodium), 5 MG PO DAILY Warfarin Sodium (Coumadin), 4 MG PO DAILY Zoledronic Acid (Reclast), 1 DOSE INJ YEARLY Zolpidem Tartrate (Zolpidem Tartrate), 5 MG PO DAILY Scheduled PRN Acetaminophen (Tylenol Extra Strength), 1,000 MG PO TID PRN for Pain Meclizine Hcl (Meclizine Hcl), 25 MG PO TID PRN for vertigo Nitroglycerin (Nitrostat), 0.4 MG UT UD PRN for Chest Pain Allergies Coded Allergies: Cefadroxil (Verified Allergy, Intermediate, UNKNOWN, 08/02/16) Clindamycin (Verified Allergy, Intermediate, UNKNOWN, 08/02/16) Levofloxacin (Verified Allergy, Intermediate, UNKNOWN, 08/02/16) Metronidazole (Verified Allergy, Intermediate, UNKNOWN, 08/02/16) Amoxicillin (Verified Adverse Reaction, Mild, diarrhea, 08/02/16) Clavulanic Acid (Verified Adverse Reaction, Mild, diarrhea, 08/02/16) Metformin (Verified Adverse Reaction, Mild, diarreha, 08/02/16) Sitagliptin (Verified Adverse Reaction, Mild, diarreha, 08/02/16) Physical Exam Vital Signs Date Time Temp Pulse Resp B/P Pulse Ox O2 Delivery O2 Flow Rate FiO2 08/05/16 00:07 68 18 185/88 95 08/04/16 22:46 62 18 92 Room Air 08/04/16 21:35 67 08/04/16 21:02 95 Room Air 08/04/16 20:38 36.8 69 18 146/81 96 Room Air Physical Exam GENERAL: Patient is in no acute distress. HEENT: No acute trauma, normocephalic atraumatic, mucous membranes moist, no nasal congestion, no scleral icterus. NECK: No stridor, no adenopathy, no meningismus, trachea is midline. LUNGS: Clear to auscultation bilaterally, no wheeze, no rhonchi, breath sounds equal. HEART: Without murmurs gallops or rubs, regular rate and rhythm. CHEST: Tenderness to the anterior and lateral left chest wall, no rash. ABDOMEN: Soft, nontender, bowel sounds positive, no hernias, no peritonitis. EXTREMITIES: No cyanosis or edema, full range of motion of all the joints without pain or difficulty, no signs for acute trauma. NEUROLOGIC: Oriented x 3, no acute motor or sensory deficits, no focal weakness. SKIN: No rash, no jaundice, no diaphoresis. Medical Decision & Procedures ER Provider Diagnostic Interpretation: Radiology results are stated below per my review and radiologist interpretation: CHEST ONE VIEW PORTABLE FINDINGS: There are postsurgical changes of midline sternotomy. The heart is mildly enlarged. There is aortic tortuosity. There is no overt failure. There is no focal pulmonary consolidation. There are no pleural effusions. IMPRESSION: No active disease in the chest. Electronically signed by: Ady Mendez M.D. 08/04/2016 9:04 PM Dictated Date/Time: 08/04/2016 9:03 PM Laboratory Results 08/04/16 20:55 08/04/16 20:55 Test 08/04/16 20:55 08/04/16 23:26 Red Blood Count 4.09 M/uL (4.2-5.4) Mean Corpuscular Volume 93.2 fL (80-100) Mean Corpuscular Hemoglobin 30.1 pg (25-34) Mean Corpuscular Hemoglobin Concent 32.3 g/dl (32-36) RDW Standard Deviation 53.7 fL (36.4-46.3) RDW Coefficient of Variation 16.0 % (11.5-14.5) Mean Platelet Volume 9.5 fL (7.4-10.4) Nucleated RBC Absolute Count (auto) 0.02 K/uL (0-0) Nucleated Red Blood Cells % 0.2 % Prothrombin Time 30.6 SECONDS (9.0-12.0) Prothromb Time International Ratio 2.7 (0.9-1.1) Activated Partial Thromboplast Time 33.8 SECONDS (21.0-31.0) Partial Thromboplastin Ratio 1.3 Anion Gap 8.0 mmol/L (3-11) Est Creatinine Clear Calc Drug Dose 33.8 ml/min Estimated GFR () 41.0 Estimated GFR (Non- 35.4 BUN/Creatinine Ratio 17.4 (10-20) Calcium Level 9.5 mg/dl (8.5-10.1) Total Bilirubin 0.4 mg/dl (0.2-1) Aspartate Amino Transf (AST/SGOT) 28 U/L (15-37) Alanine Aminotransferase (ALT/SGPT) 39 U/L (12-78) Alkaline Phosphatase 62 U/L (45-117) Total Creatine Kinase 27 U/L (26-192) Creatine Kinase MB 1.1 ng/ml (0.5-3.6) Creatine Kinase MB Ratio 4.1 (0-3.0) Total Protein 6.9 gm/dl (6.4-8.2) Albumin 3.3 gm/dl (3.4-5.0) Globulin 3.6 gm/dl (2.5-4.0) Albumin/Globulin Ratio 0.9 (0.9-2) Bedside Troponin I 0.000 ng/ml (0-0.045) Laboratory results reviewed by me. ECG Indication: chest pain Rate (beats per minute): 71 Rhythm: normal sinus Findings: T-wave inversion (Lateral), other (ST flattening) Comparison ECG Date: 07/22/16 Change: no significant change ED Course 3: The patient was evaluated in room C5. A complete history and physical exam was performed. 2340: I updated the patient. 2346: Ordered Acetaminophen 650 mg PO. 2350: Reevaluated the patient. Discussed results and discharge instructions: She verbalized understanding and agreement. The patient is ready for discharge. Medical Decision Differentials include musculoskeletal chest pain, cardiac ischemia, aortic dissection, pneumonia, pneumothorax, anemia, electrolyte imbalance, and [place]. There is no leukocytosis or concerning anemia. No significant electrolyte abnormality, kidney failure or hepatitis. INR is therapeutic for someone using Coumadin. Chest film shows no mediastinal widening, pneumonia or pneumothorax. EKG shows a normal sinus rhythm with some ST changes which appear chronic. Cardiac enzyme testing 2 is not consistent with acute cardiac injury. The patient was given oral Tylenol, she has done well here. Her workup is benign, her chest pain is reproducible on exam and I do think musculoskeletal. The patient is being discharged home. Impression Primary Impression: Left sided chest pain Scribe Attestation The scribe's documentation has been prepared under my direction and personally reviewed by me in its entirety. I confirm that the note above accurately reflects all work, treatment, procedures, and medical decision making performed by me. Departure Information Dispostion Home / Self-Care Referrals Davion Flores M.D. (PCP) Patient Instructions My [facility] [address] Additional Instructions rest heat to the chest wall may help tylenol for pain follow with your fabrizio md return if worsening heart testing was ok today
[2016-08-04] MEDS ORDERED: MECL1TAB42 PO (23:38)
[2016-08-04] MEDS ORDERED: WARF4TAB PO (23:41)
[2016-08-04] MEDS ORDERED: ACETAMINOPHEN 325 MG TAB PO STA (23:46)
[2016-08-05 00:07] VITALS: BP 185/88; PULSE 68; O2SAT 95
[2016-09-15] MEDS ORDERED: GABA-112 PO (20:29)
[2016-09-22] MEDS ORDERED: ONDA4TAB54 PO (09:45)
[2016-09-22] MEDS ORDERED: PANT40TA PO (09:45)
[2016-09-22] MEDS ORDERED: AZIT500T PO (09:45)
[2016-09-22] MEDS ORDERED: PRED-301 PO (09:45)
[2016-09-22] MEDS ORDERED: CHOL2000 PO (09:45)
[2016-10-18] MEDS ORDERED: INSU1INJ33 SQ (09:50)
[2016-10-18] MEDS ORDERED: GABA-112 PO (09:50)
[2016-10-18] MEDS ORDERED: ROSU40TA PO (09:50)
[2016-10-18] MEDS ORDERED: ESCI1TAB6 PO (09:50)
[2016-10-18] MEDS ORDERED: CLOP1TAB15 PO (09:50)
== END 2016-08-05 00:08 | disposition home or self-care (01) ==
LOC: EDBD 20:04 → C.EDC 20:05
DX: R07.89 Other chest pain (principal); R42 Dizziness and giddiness; I25.10 Atherosclerotic heart disease of native coronary artery without angina pectoris; E78.4 Other hyperlipidemia; E11.9 Type 2 diabetes mellitus without complications; M06.9 Rheumatoid arthritis, unspecified; Z85.038 Personal history of other malignant neoplasm of large intestine; Z86.73 Personal history of transient ischemic attack (TIA), and cerebral infarction without residual deficits; Z95.1 Presence of aortocoronary bypass graft; Z95.2 Presence of prosthetic heart valve; Z90.49 Acquired absence of other specified parts of digestive tract; Z98.890 Other specified postprocedural states; Z83.3 Family history of diabetes mellitus; Z82.49 Family history of ischemic heart disease and other diseases of the circulatory system; Z79.82 Long term (current) use of aspirin; Z79.4 Long term (current) use of insulin; Z79.52 Long term (current) use of systemic steroids; Z79.01 Long term (current) use of anticoagulants; Z79.899 Other long term (current) drug therapy

== ENCOUNTER 2016-08-06 06:23 | Emergency (ER) | payer OTHER ==
[~2016-08-06] VITALS: Ht 167.6 cm; Wt 76.8 kg
[~2016-08-06 06:23] MED LIST changes: +MECL1TAB42 PO; +WARF4TAB PO
[2016-08-06 06:35] VITALS: TEMP 36.9; Ht 167.6 cm; Wt 76.8 kg
[2016-08-06] MEDS ORDERED: ONDANSETRON INJ 2 MG/ML 2 ML VIAL IV STA (08:23)
[2016-08-06 08:32] LABS: BASO % 0.3 %; BASO ABS # 0.02 K/uL (0-0.2); COMPLETE YES; EOS % 0.6 %; IG% 0.7 %; LYMPH % 26.3 %; LYMPH ABS # 1.82 K/uL (1.2-3.4); MEAN CELL VOLUME 92.8 fL (80-100); MEAN CORPUSCULAR HEMOGLOBIN 30.3 pg (25-34); MEAN CORPUSCULAR HGB CONC 32.7 g/dl (32-36); MEAN PLATELET VOLUME 9.8 fL (7.4-10.4); MONO % 11.4 %; NEUT % 60.7 %; PLATELET COUNT 180 K/uL (130-400); RED BLOOD COUNT 4.42 M/uL (4.2-5.4); WHITE BLOOD COUNT 6.92 K/uL (4.8-10.8)
[2016-08-06 08:40] LABS: INR 2.6 (0.9-1.1); PARTIAL THROMBOPLASTIN RATIO 1.3; PROTHROMBIN TIME (PATIENT) 29.5 SECONDS (9.0-12.0)
[2016-08-06 08:56] LABS: BUN/CREATININE RATIO 11.6 (10-20); CALCIUM 9.7 mg/dl (8.5-10.1); CREATININE 1.1 mg/dl (0.60-1.20); POTASSIUM 3.7 mmol/L (3.5-5.1)
[2016-08-06 09:10] LABS: CKMB/CK RATIO 2.3 (0-3.0); THYROID STIMULATING HORMONE 1.34 uIu/ml (0.300-4.500)
[2016-08-06 09:22] LABS: URINE APPEARANCE CLEAR (CLEAR); URINE BILIRUBIN NEG (NEG); URINE COLOR YELLOW; URINE EPITHELIAL CELL AUTO >30 /lpf (0-5); URINE NITRITE NEG (NEG); URINE SPECIFIC GRAVITY 1.018 (1.000-1.030); UROBILINOGEN NEG (NEG)
[2016-08-06 09:23] LABS: MANUAL MICROSCOPIC REQUIRED? NO; REVIEW REQ? NO
--- NOTE | 2016-08-06 13:07 | EMERGENCY ROOM VISIT NOTE ---
ED Visit Note First contact with patient: 07:34 Patient was seen by our PA/VULCANIZING PRESS OPERATOR. I was involved in the patient's care and did evaluate the patient myself. I was involved in the care throughout the ER stay. The patient presents with dizziness and what sounds like some mild vertigo. This has been an ongoing issue for her for months ever since her heart surgery. She was recently seen in this ER for left sided chest pain that was thought musculoskeletal. The patient has a unrevealing laboratory workup today. She is not toxic or febrile. She has been ordered for a brain MRI to look for the possibility of stroke as a cause for her dizziness. This imaging is still pending. If the MRI does show stroke or mass like findings, admission/observation would be warranted. If the MRI is negative, she can likely be discharged home.
[2016-08-06 14:22] VITALS: BP 148/81; PULSE 72; O2SAT 95
--- NOTE | 2016-08-23 09:18 | EMERGENCY ROOM VISIT NOTE ---
History First contact with patient: 07:34 Chief Complaint: NAUSEA Stated Complaint: NAUSEA,DIZZY Nursing Triage Summary: nauseated and dizzy since yesterday History of Present Illness The patient is a 81 year old white female female who presents to the Emergency Room with complaints of nausea and dizziness that developed yesterday. She states she has had intermittent dizziness since having a valve replacement in March 2016. Became worse yesterday. She states she called her PCP and did not receive a call back from her physician. The nurse told her to go to the ED last night. She decided to wait, hoping that it would go away. It has not. Her brings her in this morning. She denies any headache, worsening chest pain, or abdominal pain. No fevers, chills, or sweats. No vomiting or diarrhea. She feels she has been drinking adequately. She was just seen here 2 days ago for chest pain. Cardiac workup was unremarkable. Her chest discomfort was thought to be coming from her scar on the chest wall. She is currently very anxious. She arrives by BLS ambulance. Review of Systems REVIEW OF SYSTEM: HEENT: No dizziness, visual problems, hearing loss, or tinnitus. There is no difficulty swallowing and no oral lesions are present. LYMPH: No adenopathy. PULMONARY: No cough, shortness of breath, sputum production or hemoptysis. CARDIOVASCULAR: No chest pain, palpitations, shortness of breath or peripheral edema. GASTROINTESTINAL: No diarrhea, constipation, nausea, vomiting, or abdominal pain. GENITOURINARY: No dysuria, frequency, urgency or nocturia. NEUROLOGIC: No weakness, muscle tenderness, epilepsy or history of neurological problems. MUSCULOSKELETAL: No history of joint tenderness/swelling. No history of arthritis or arthralgias. SKIN: No rashes or lesions. PSYCHIATRIC: No history of depression or mental illness. Significant anxiety since her heart surgery. ENDOCRINE: No history of diabetes, thyroid disorders, or abnormal hair growth. Past Medical/Surgical History Medical Problems: (1) CAD (coronary artery disease) (2) Carcinoma of colon (3) Colectomy (4) Coronary artery disease involving [place] coronary artery (5) Diabetes (6) Dizziness (7) Familial combined hyperlipidemia (8) Peptic ulcer (9) Rheumatoid arthritis (10) Stable angina (11) Stroke (12) Vertigo Surgical Problems: (1) History of cholecystectomy (2) History of colectomy (3) Removal of pin, plate, lulu, or screw (4) S/P CABG x 3 Family History Cancer Diabetes mellitus FHx: aneurysm Heart disease Hypertension Social History Smoking Status: Never Smoker Smokeless Tobacco Use: No Alcohol Use: none Drug Use: none Marital Status: Housing Status: lives with significant other Occupation Status: retired Current/Historical Medications Scheduled Aspirin (Aspirin Ec), 81 MG PO DAILY Calcium Carbonate-Cholecalcife (Calcium 600 + D 600-200 mg-Unit), 1 TABS PO BID Cholecalciferol (Vitamin D3), 2,000 INTER.UNIT PO BID Insulin Aspart (Novolog Flexpen), 12 UNITS SC UD Insulin Aspart (Novolog Flexpen), 14 UNITS SQ SUPPER Insulin Detemir (Levemir), 10 UNITS SQ QPM Isosorbide Mononitrate (Isosorbide Mononitrate ER), 30 MG PO QAM Losartan Potassium (Cozaar), 50 MG PO DAILY Metoprolol Succinate (Metoprolol Succinate ER), 100 MG PO QPM Pantoprazole (Pantoprazole Sodium), 40 MG PO DAILY Prednisone (Prednisone), 10 MG PO QAM Prednisone (Prednisone), 5 MG PO QPM Rosuvastatin Calcium (Rosuvastatin Calcium), 40 MG PO DAILY Warfarin Sodium (Warfarin Sodium), 5 MG PO DIRECTED Zoledronic Acid (Reclast), 1 DOSE INJ YEARLY Zolpidem Tartrate (Zolpidem Tartrate), 5 MG PO DAILY Scheduled PRN Acetaminophen (Tylenol Extra Strength), 1,000 MG PO TID PRN for Pain Meclizine Hcl (Meclizine Hcl), 25 MG PO TID PRN for vertigo Nitroglycerin (Nitrostat), 0.4 MG UT UD PRN for Chest Pain Allergies Coded Allergies: Cefadroxil (Verified Allergy, Intermediate, UNKNOWN, 08/11/16) Clindamycin (Verified Allergy, Intermediate, UNKNOWN, 08/11/16) Levofloxacin (Verified Allergy, Intermediate, UNKNOWN, 08/11/16) Metronidazole (Verified Allergy, Intermediate, UNKNOWN, 08/11/16) Amoxicillin (Verified Adverse Reaction, Mild, diarrhea, 08/11/16) Clavulanic Acid (Verified Adverse Reaction, Mild, diarrhea, 08/11/16) Metformin (Verified Adverse Reaction, Mild, diarreha, 08/11/16) Sitagliptin (Verified Adverse Reaction, Mild, diarreha, 08/11/16) Physical Exam Vital Signs Date Time Temp Pulse Resp B/P Pulse Ox O2 Delivery O2 Flow Rate FiO2 08/06/16 14:22 72 18 148/81 95 08/06/16 13:55 72 18 148/81 95 Room Air NIBP 08/06/16 13:01 77 20 160/73 95 Room Air 08/06/16 12:30 63 15 157/99 93 Room Air 08/06/16 12:12 73 08/06/16 12:00 72 12 161/87 95 Room Air 08/06/16 10:30 70 21 140/67 93 Room Air 08/06/16 10:00 63 15 134/65 90 Room Air 08/06/16 09:30 63 17 137/70 94 Room Air 08/06/16 09:06 65 18 169/84 93 Room Air 08/06/16 09:06 65 08/06/16 06:35 36.9 85 18 133/75 99 Room Air Physical Exam Gen.: Frail, elderly white female, in no obvious discomfort. No acute distress. Very anxious. Laying on a bed. Alert and oriented. Skin:Warm and dry with fair turgor. No rashes or lesions. No erythema. Extensive ecchymosis present over the dorsum of her right hand. The patient is not diaphoretic. No abrasions. HEENT: Normocephalic atraumatic. Eyes PERRLA, EOMI. No conjunctiva or scleral injection. Ears TMs intact bilaterally with good light reflexes. No erythema or bulging. No hemotympanum. Canals are patent. Nares patent bilaterally without turbinate enlargement. No significant drainage. No epistaxis. Oropharynx without erythema or exudate. Uvula midline, oral mucosa moist. No lesions present. Heart: Heart RRR. No GR. 3/6 systolic ejection murmur noted. Peripheral pulses are 2+. Lungs: Lungs are clear to auscultation. No crackles rhonchi or wheezing. Good air movement. The patient is able to take a deep breath. Abdomen: Abdomen was inspected, auscultated, and palpated. Bowel sounds present x 4. Soft, nontender to palpation. No hepato-splenomegaly. No masses noted. No rebound. Musculoskeletal: Gross motor function of the upper and lower extremities is intact and unremarkable. She does have some tenderness with palpation over the anterior chest wall. This is similar to her previous exam. Neurologic: Gross sensation is intact across the upper and lower extremities by soft touch. Cranial nerves II through XII are intact. No nystagmus. Medical Decision & Procedures ER Provider Diagnostic Interpretation: EKG obtained today shows a normal sinus rhythm with no acute ST or T-wave abnormalities. Rate of 62. This was reviewed with Dr. Benjamin. Laboratory Results 08/06/16 08:10 Red Blood Count 4.42, Mean Corpuscular Volume 92.8, Mean Corpuscular Hemoglobin 30.3, Mean Corpuscular Hemoglobin Concent 32.7, Mean Platelet Volume 9.8, Neutrophils (%) (Auto) 60.7, Lymphocytes (%) (Auto) 26.3, Monocytes (%) (Auto) 11.4, Eosinophils (%) (Auto) 0.6, Basophils (%) (Auto) 0.3, Neutrophils # (Auto ) 4.20, Lymphocytes # (Auto) 1.82, Monocytes # (Auto) 0.79, Eosinophils # (Auto ) 0.04, Basophils # (Auto) 0.02 08/06/16 08:10 Test 08/06/16 08:10 08/06/16 09:00 White Blood Count 6.92 K/uL (4.8-10.8) Red Blood Count 4.42 M/uL (4.2-5.4) Hemoglobin 13.4 g/dL (12.0-16.0) Hematocrit 41.0 % (37-47) Mean Corpuscular Volume 92.8 fL (80-100) Mean Corpuscular Hemoglobin 30.3 pg (25-34) Mean Corpuscular Hemoglobin Concent 32.7 g/dl (32-36) Platelet Count 180 K/uL (130-400) Mean Platelet Volume 9.8 fL (7.4-10.4) Neutrophils (%) (Auto) 60.7 % Lymphocytes (%) (Auto) 26.3 % Monocytes (%) (Auto) 11.4 % Eosinophils (%) (Auto) 0.6 % Basophils (%) (Auto) 0.3 % Neutrophils # (Auto) 4.20 K/uL (1.4-6.5) Lymphocytes # (Auto) 1.82 K/uL (1.2-3.4) Monocytes # (Auto) 0.79 K/uL (0.11-0.59) Eosinophils # (Auto) 0.04 K/uL (0-0.5) Basophils # (Auto) 0.02 K/uL (0-0.2) RDW Standard Deviation 53.7 fL (36.4-46.3) RDW Coefficient of Variation 15.9 % (11.5-14.5) Immature Granulocyte % (Auto) 0.7 % Immature Granulocyte # (Auto) 0.05 K/uL (0.00-0.02) Prothrombin Time 29.5 SECONDS (9.0-12.0) Prothromb Time International Ratio 2.6 (0.9-1.1) Activated Partial Thromboplast Time 34.6 SECONDS (21.0-31.0) Partial Thromboplastin Ratio 1.3 Anion Gap 9.0 mmol/L (3-11) Est Creatinine Clear Calc Drug Dose 42.7 ml/min Estimated GFR () 54.9 Estimated GFR (Non- 47.4 BUN/Creatinine Ratio 11.6 (10-20) Calcium Level 9.7 mg/dl (8.5-10.1) Total Bilirubin 0.6 mg/dl (0.2-1) Aspartate Amino Transf (AST/SGOT) 39 U/L (15-37) Alanine Aminotransferase (ALT/SGPT) 40 U/L (12-78) Alkaline Phosphatase 54 U/L (45-117) Total Creatine Kinase 35 U/L (26-192) Creatine Kinase MB 0.8 ng/ml (0.5-3.6) Creatine Kinase MB Ratio 2.3 (0-3.0) Troponin I 0.016 ng/ml (0-0.045) Total Protein 7.1 gm/dl (6.4-8.2) Albumin 3.6 gm/dl (3.4-5.0) Globulin 3.5 gm/dl (2.5-4.0) Albumin/Globulin Ratio 1.0 (0.9-2) Thyroid Stimulating Hormone (TSH) 1.340 uIu/ml (0.300-4.500) Free Thyroxine 1.69 ng/dl (0.80-1.60) Urine Color YELLOW Urine Appearance CLEAR (CLEAR) Urine pH 6.0 (4.5-7.5) Urine Specific [place] 1.018 (1.000-1.030) Urine Protein TRACE (NEG) Urine Glucose (UA) NEG (NEG) Urine Ketones NEG (NEG) Urine Occult Blood NEG (NEG) Urine Nitrite NEG (NEG) Urine Bilirubin NEG (NEG) Urine Urobilinogen NEG (NEG) Urine Leukocyte Esterase NEG (NEG) Urine WBC (Auto) 1-5 /hpf (0-5) Urine RBC (Auto) 0-4 /hpf (0-4) Urine Hyaline Casts (Auto) 1-5 /lpf (0-5) Urine Epithelial Cells (Auto) >30 /lpf (0-5) Urine Bacteria (Auto) NEG (NEG) CBC, comprehensive metabolic panel, TSH, free T4, CK/CK-MB, troponin, PT/INR, and UA were obtained. Cardiac enzymes are unremarkable. Electrolytes are unremarkable. TSH is normal with a mild elevation in free T4. UA is unremarkable. No anemia. No infection. Medications Administered Medications (Trade) Dose Ordered Sig/Sincere Route Start Time Stop Time Status Last Admin Dose Admin Ondansetron HCl (Zofran Inj) 4 mg NOW STAT IV 08/06/16 08:23 08/06/16 08:24 DC 08/06/16 08:36 4 MG Prednisone (PredniSONE TAB) 10 mg NOW ONCE PO 08/06/16 12:15 08/06/16 12:16 DC 08/06/16 12:38 10 MG Zofran 4 mg IV, prednisone 10 mg by mouth ED Course Patient and her were educated regarding today's findings. Conservative care measures were discussed. IV was established. Labs were obtained. EKG was obtained. These are all unremarkable. I do not think any additional imaging is necessary as she just had a thorough workup 2 days ago. She was given Zofran 4 mg IV for her nausea. It resolved. She was also given an oral dose of prednisone while in the ED, as she was due for her normal dose and was getting anxious about missing it. She was reassured that I find nothing unusual about her exam. I do not have a source for her symptoms, other than perhaps anxiety. She should follow up with her PCP this week. She has antinausea medication at home and may take this as needed. I will start her on meclizine half tablet every 6 hours as needed for dizziness. Maintain hydration. Return to the ED for any acute changes. Patient was seen in conjunction with Dr. Benjamin, who also evaluated the patient and concurred with today's diagnosis and treatment plan. Medical Decision Possibility of inner ear infection, electrolyte disturbance, anemia, hypothyroidism, hyperthyroidism, other infection, cardiac arrhythmia, anxiety, stroke, intracranial bleed, and dehydration were considered among others. Impression Primary Impression: Nausea Additional Impressions: Anxiety Dizziness Departure Information Referrals Davion Floers M.D. (PCP) Patient Instructions My [facility] Health Problem Qualifiers
[2016-09-15] MEDS ORDERED: GABA-112 PO (20:29)
[2016-09-22] MEDS ORDERED: ONDA4TAB54 PO (09:45)
[2016-09-22] MEDS ORDERED: PRED-301 PO (09:45)
[2016-09-22] MEDS ORDERED: CHOL2000 PO (09:45)
[2016-09-22] MEDS ORDERED: AZIT500T PO (09:45)
[2016-09-22] MEDS ORDERED: PANT40TA PO (09:45)
[2016-10-18] MEDS ORDERED: ESCI1TAB6 PO (09:50)
[2016-10-18] MEDS ORDERED: ROSU40TA PO (09:50)
[2016-10-18] MEDS ORDERED: GABA-112 PO (09:50)
[2016-10-18] MEDS ORDERED: CLOP1TAB15 PO (09:50)
[2016-10-18] MEDS ORDERED: INSU1INJ33 SQ (09:50)
== END 2016-08-06 14:22 | disposition home or self-care (01) ==
LOC: C.EDB 06:24 → C.EDA 14:22
DX: R11.0 Nausea (principal); F41.9 Anxiety disorder, unspecified; R42 Dizziness and giddiness; I25.10 Atherosclerotic heart disease of native coronary artery without angina pectoris; E11.9 Type 2 diabetes mellitus without complications; Z95.1 Presence of aortocoronary bypass graft; Z79.82 Long term (current) use of aspirin; Z79.4 Long term (current) use of insulin; Z79.01 Long term (current) use of anticoagulants; Z79.899 Other long term (current) drug therapy; Z79.52 Long term (current) use of systemic steroids

== ENCOUNTER 2016-08-11 05:48 | Emergency (ER) | payer OTHER ==
[~2016-08-11] VITALS: Ht 167.6 cm; Wt 76.5 kg
[2016-08-11 05:57] VITALS: TEMP 36.8; Ht 167.6 cm; Wt 76.5 kg
[2016-08-11 06:32] VITALS: O2SAT 94
[2016-08-11 06:32] LABS: INR 2.2 (0.9-1.1); PARTIAL THROMBOPLASTIN RATIO 1.2; PROTHROMBIN TIME (PATIENT) 24.7 SECONDS (9.0-12.0)
[2016-08-11] MEDS ORDERED: IMDSR30 PO (06:39)
[2016-08-11 06:41] LABS: HEMATOCRIT 39.9 % (37-47); MEAN CELL VOLUME 92.8 fL (80-100); MEAN CORPUSCULAR HEMOGLOBIN 30.5 pg (25-34); MEAN CORPUSCULAR HGB CONC 32.8 g/dl (32-36); MEAN PLATELET VOLUME 10.1 fL (7.4-10.4); PLATELET COUNT 182 K/uL (130-400); WHITE BLOOD COUNT 7.46 K/uL (4.8-10.8)
--- NOTE | 2016-08-11 06:42 | DIAGNOSTIC IMAGING REPORT ---
CHEST ONE VIEW PORTABLE CLINICAL HISTORY: chest pain dyspnea COMPARISON STUDY: 08/04/2016 FINDINGS: Mild stable cardiomegaly. Prior median sternotomy. Lungs are clear. Diaphragms are smooth. IMPRESSION: No acute process. Electronically signed by: Ellis Nichols M.D. 08/11/2016 6:41 AM Dictated Date/Time: 08/11/2016 6:41 AM
[2016-08-11 06:48] LABS: ALKALINE PHOSPHATASE 53 U/L (45-117); ALT/SGPT 34 U/L (12-78); BLOOD UREA NITROGEN 19 mg/dl (7-18); BUN/CREATININE RATIO 15.7 (10-20); CALCIUM 9.2 mg/dl (8.5-10.1); CARBON DIOXIDE 25 mmol/L (21-32); CHLORIDE 105 mmol/L (98-107); GLUCOSE 149 mg/dl (70-99); SODIUM 141 mmol/L (136-145)
[2016-08-11 07:10] LABS: POTASSIUM 3.6 mmol/L (3.5-5.1)
[2016-08-11] MEDS ORDERED: LORAZEPAM 0.5 MG TAB PO STA (07:35)
--- NOTE | 2016-08-11 08:34 | EMERGENCY ROOM VISIT NOTE ---
History Report prepared by Ivana: Sugey Byrnes Under the Supervision of: Dr. Lalitha Nguyen M.D. First contact with patient: 06:39 Chief Complaint: CHEST PAIN Stated Complaint: CHEST PAIN Nursing Triage Summary: Pt reports chest pain that started at 0200 this AM. Pt took 2 tylenol with not relief. 2x nitro at home with some relief. Pt reports this was the worst episode of chest pain she has ever had. Not having pain at this time. History of Present Illness The patient is a 81 year old female who presents to the Emergency Room with complaints of persistent chest pain which started at 0200 this morning. She reports that she took Tylenol and tried using wet compresses, but the pain persisted. She then took a nitro which did not help the pain. She tried taking another nitro, but she did not experience any relief. She feels the pain is exacerbated by touch. She reports that she has experienced pain like this before , but states that this is worse than any pain she has previously experienced. The pain is also present in her left arm and left flank. She is also experiencing nausea, which she states she has been feeling since her CABG in March 2016. She has also been experiencing dizzy spells. She denies any headaches, vision changes, or bowel movement changes. She reports that last week she started taking citalopram. Her doctor also dropped her dosage of blood pressure medication losartan and potassium. She takes Ambien to help her sleep. She denies any history of GERD. Source of History: patient Onset: 0200 this morning Position: chest Timing: other (persistent) Modifying Factors (Worsening): other (touch) Associated Symptoms: + nausea, No headache Note: Pt has dizzy spells. Pt denies vision changes or bowel movement changes. Review of Systems See HPI for pertinent positives & negatives. A total of 10 systems reviewed and were otherwise negative. Past Medical & Surgical Medical Problems: (1) CAD (coronary artery disease) (2) Carcinoma of colon (3) Colectomy (4) Coronary artery disease involving [place] coronary artery (5) Diabetes (6) Dizziness (7) Familial combined hyperlipidemia (8) Peptic ulcer (9) Rheumatoid arthritis (10) Stable angina (11) Stroke (12) Vertigo Surgical Problems: (1) History of cholecystectomy (2) History of colectomy (3) Removal of pin, plate, lulu, or screw (4) S/P CABG x 3 Family History Cancer Diabetes mellitus FHx: aneurysm Heart disease Hypertension Social History Smoking Status: Never Smoker Alcohol Use: none Drug Use: none Marital Status: Housing Status: lives with significant other Occupation Status: retired Current/Historical Medications Scheduled Aspirin (Aspirin Ec), 81 MG PO DAILY Calcium Carbonate-Cholecalcife (Calcium 600 + D 600-200 mg-Unit), 1 TABS PO BID Cholecalciferol (Vitamin D3), 2,000 INTER.UNIT PO BID Insulin Aspart (Novolog Flexpen), 12 UNITS SC UD Insulin Aspart (Novolog Flexpen), 14 UNITS SQ SUPPER Insulin Detemir (Levemir), 10 UNITS SQ QPM Isosorbide Mononitrate (Isosorbide Mononitrate ER), 30 MG PO QAM Losartan Potassium (Cozaar), 50 MG PO DAILY Metoprolol Succinate (Metoprolol Succinate ER), 100 MG PO QPM Pantoprazole (Pantoprazole Sodium), 40 MG PO DAILY Prednisone (Prednisone), 10 MG PO QAM Prednisone (Prednisone), 5 MG PO QPM Rosuvastatin Calcium (Rosuvastatin Calcium), 40 MG PO DAILY Warfarin Sodium (Warfarin Sodium), 5 MG PO DIRECTED Zoledronic Acid (Reclast), 1 DOSE INJ YEARLY Zolpidem Tartrate (Zolpidem Tartrate), 5 MG PO DAILY Scheduled PRN Acetaminophen (Tylenol Extra Strength), 1,000 MG PO TID PRN for Pain Lorazepam (Ativan), 0.5 MG PO TID PRN for Anxiety Meclizine Hcl (Meclizine Hcl), 25 MG PO TID PRN for vertigo Nitroglycerin (Nitrostat), 0.4 MG UT UD PRN for Chest Pain Allergies Coded Allergies: Cefadroxil (Verified Allergy, Intermediate, UNKNOWN, 08/11/16) Clindamycin (Verified Allergy, Intermediate, UNKNOWN, 08/11/16) Levofloxacin (Verified Allergy, Intermediate, UNKNOWN, 08/11/16) Metronidazole (Verified Allergy, Intermediate, UNKNOWN, 08/11/16) Amoxicillin (Verified Adverse Reaction, Mild, diarrhea, 08/11/16) Clavulanic Acid (Verified Adverse Reaction, Mild, diarrhea, 08/11/16) Metformin (Verified Adverse Reaction, Mild, diarreha, 08/11/16) Sitagliptin (Verified Adverse Reaction, Mild, diarreha, 08/11/16) Physical Exam Vital Signs Date Time Temp Pulse Resp B/P Pulse Ox O2 Delivery O2 Flow Rate FiO2 08/11/16 09:31 97 18 153/74 93 Room Air 08/11/16 07:55 62 16 163/74 94 08/11/16 06:34 68 08/11/16 06:32 71 18 156/97 95 Room Air 08/11/16 06:32 94 Room Air 08/11/16 06:00 96 Room Air 08/11/16 05:57 36.8 78 20 131/74 94 Room Air Physical Exam Vital signs reviewed. General: Elderly, chronically ill-appearing, in no significant distress. HEENT: No scleral icterus, PERRLA, neck supple. Atraumatic. Cardiovascular: Regular rate and rhythm, no extra sounds. Pulmonary: Clear to auscultation bilaterally, normal work of breathing. Abdomen: Soft, obese, nontender, nondistended, positive bowel sounds. Musculoskeletal: Atraumatic, no peripheral edema. Neurologic: Patient awake alert and oriented x 3, full strength in all 4 extremities. Cranial nerves 2 through 12 grossly intact. Skin: Thin, creepy skin with chronic ecchymotic changes to hands bilaterally. Medical Decision & Procedures ER Provider Diagnostic Interpretation: X-ray results as stated below per interpretation by me and the radiologist: CHEST ONE VIEW PORTABLE CLINICAL HISTORY: chest pain dyspnea COMPARISON STUDY: 08/04/2016 FINDINGS: Mild stable cardiomegaly. Prior median sternotomy. Lungs are clear. Diaphragms are smooth. IMPRESSION: No acute process. Electronically signed by: Ellis Nichols M.D. 08/11/2016 6:41 AM Laboratory Results 08/11/16 06:15 08/11/16 06:15 08/11/16 06:53 Test 08/11/16 06:15 08/11/16 06:53 08/11/16 08:05 Red Blood Count 4.30 M/uL (4.2-5.4) Mean Corpuscular Volume 92.8 fL (80-100) Mean Corpuscular Hemoglobin 30.5 pg (25-34) Mean Corpuscular Hemoglobin Concent 32.8 g/dl (32-36) RDW Standard Deviation 53.3 fL (36.4-46.3) RDW Coefficient of Variation 16.0 % (11.5-14.5) Mean Platelet Volume 10.1 fL (7.4-10.4) Nucleated RBC Absolute Count (auto) 0.00 K/uL (0-0) Nucleated Red Blood Cells % 0.0 % Prothrombin Time 24.7 SECONDS (9.0-12.0) Prothromb Time International Ratio 2.2 (0.9-1.1) Activated Partial Thromboplast Time 31.9 SECONDS (21.0-31.0) Partial Thromboplastin Ratio 1.2 Anion Gap 11.0 mmol/L (3-11) Est Creatinine Clear Calc Drug Dose 39.1 ml/min Estimated GFR () 49.4 Estimated GFR (Non- 42.7 BUN/Creatinine Ratio 15.7 (10-20) Calcium Level 9.2 mg/dl (8.5-10.1) Total Bilirubin 0.7 mg/dl (0.2-1) Alanine Aminotransferase (ALT/SGPT) 34 U/L (12-78) Alkaline Phosphatase 53 U/L (45-117) Creatine Kinase MB 1.0 ng/ml (0.5-3.6) Creatine Kinase MB Ratio (0-3.0) Total Protein 6.8 gm/dl (6.4-8.2) Albumin 3.4 gm/dl (3.4-5.0) Globulin 3.4 gm/dl (2.5-4.0) Albumin/Globulin Ratio 1.0 (0.9-2) Aspartate Amino Transf (AST/SGOT) 27 U/L (15-37) Total Creatine Kinase 40 U/L (26-192) Bedside Troponin I 0.000 ng/ml (0-0.045) Laboratory results per my review. Medications Administered Medications (Trade) Dose Ordered Sig/Sincere Route Start Time Stop Time Status Last Admin Dose Admin Lorazepam (Ativan Tab) 0.5 mg NOW STAT PO 08/11/16 07:35 08/11/16 07:36 DC 08/11/16 07:53 0.5 MG ECG Indication: chest pain Rate (beats per minute): 74 Rhythm: normal sinus Findings: nonspecific-ST abn (Lateral), no ectopy Comparison ECG Date: 08/06/16 Change: no significant change ED Course 729: Past medical records reviewed. The patient was evaluated in room B11B. A complete history and physical examination was performed. 0735: Lorazepam 0.5 mg PO. 0945: I reassessed the patient at this time. She is feeling better and resting comfortably. I discussed the results and treatment plan with the patient. I answered all pertaining questions that she had. She expressed understanding and verbalized agreement. The patient will be discharged home. Medical Decision Chest pain: Acute coronary syndrome, post surgical pain, pulmonary embolus, aortic dissection, musculoskeletal pain, pneumonia, pleural effusion, pneumothorax This pt was evaluated and appeared to be in no distress. IV access was obtained and labs were drawn. EKG reveals a NSR with a nonspecific ST abnl in lateral leads. No change from previous. CXR is clear. Lab work revealed neg trop x2. Pt responded well to ativan 0.5 mg po. She has recently started celexa. Pt has had multiple visits to the ED, some overnight stays, d/t CP. She does have multiple risk factors including CAD/CABG, CVA. I do not suspect cardiac etiology to pt's pain today. I provided a Rx for ativan 0.5 mg TID prn which she may need to bridge until the celexa becomes therapeutic. She will f/ u with PCP this week and return to the ED for worsening of symptoms or any medical concerns. Impression Primary Impression: Non-cardiac chest pain Scribe Attestation The scribe's documentation has been prepared under my direction and personally reviewed by me in its entirety. I confirm that the note above accurately reflects all work, treatment, procedures, and medical decision making performed by me. Departure Information Dispostion Home / Self-Care Prescriptions Lorazepam (ATIVAN) 0.5 Mg Tab 0.5 MG PO TID Y for Anxiety, #20 TAB Prov: Lalitha Nguyen M.D. 08/11/16 Referrals Davion Flores M.D. (PCP) Forms HOME CARE DOCUMENTATION FORM, IMPORTANT VISIT INFORMATION Patient Instructions My [facility] Additional Instructions Diagnosis: Noncardiac chest pain Ativan 0.5 mg 3 times a day as needed for anxiety. Do not take at the same time as your Ambien. Continue your citalopram as prescribed. Follow-up with your primary care physician this week for reevaluation. Continue conservative measures with warm compresses and Tylenol. Return to the emergency department for worsening of symptoms or any medical concerns.
[2016-08-11 09:31] VITALS: BP 153/74; PULSE 97; O2SAT 93
[2016-08-11] MEDS ORDERED: LORA-741 PO (09:56)
[2016-09-15] MEDS ORDERED: GABA-112 PO (20:29)
[2016-09-22] MEDS ORDERED: CHOL2000 PO (09:45)
[2016-09-22] MEDS ORDERED: AZIT500T PO (09:45)
[2016-09-22] MEDS ORDERED: PANT40TA PO (09:45)
[2016-09-22] MEDS ORDERED: ONDA4TAB54 PO (09:45)
[2016-09-22] MEDS ORDERED: PRED-301 PO (09:45)
[2016-10-18] MEDS ORDERED: ROSU40TA PO (09:50)
[2016-10-18] MEDS ORDERED: ESCI1TAB6 PO (09:50)
[2016-10-18] MEDS ORDERED: GABA-112 PO (09:50)
[2016-10-18] MEDS ORDERED: CLOP1TAB15 PO (09:50)
[2016-10-18] MEDS ORDERED: INSU1INJ33 SQ (09:50)
== END 2016-08-11 10:05 | disposition home or self-care (01) ==
LOC: C.EDB 05:49
DX: R07.89 Other chest pain (principal); I25.10 Atherosclerotic heart disease of native coronary artery without angina pectoris; E11.9 Type 2 diabetes mellitus without complications; M06.9 Rheumatoid arthritis, unspecified; Z79.899 Other long term (current) drug therapy; Z79.4 Long term (current) use of insulin; Z79.01 Long term (current) use of anticoagulants; Z79.82 Long term (current) use of aspirin; Z79.52 Long term (current) use of systemic steroids; Z86.73 Personal history of transient ischemic attack (TIA), and cerebral infarction without residual deficits; Z95.1 Presence of aortocoronary bypass graft; Z87.11 Personal history of peptic ulcer disease; Z85.038 Personal history of other malignant neoplasm of large intestine

== ENCOUNTER → 2016-08-24 | Outpatient (CLI) | payer OTHER ==
[~2016-08-24] MED LIST changes: +AZIT500T PO; +CHOL4POW5 PO; +CITA20TA4 PO; +CLOP1TAB15 PO; +ESCI1TAB6 PO; +GABA-112 PO; +INSU1INJ33 SQ; +LORA-741 PO; +ONDA4TAB54 PO; +PANT40TA PO; +PRD/1 PO; +ROSU40TA PO; -WARF4TAB PO; +WARF6TAB PO; +ZOLE5INJ IV; +ZOLP10TA6 PO
[2016-08-24 13:11] LABS: BASO % 0.1 %; BASO ABS # 0.01 K/uL (0-0.2); COMPLETE YES; EOS % 0.1 %; IG% 0.5 %; LYMPH % 18.4 %; LYMPH ABS # 1.53 K/uL (1.2-3.4); MEAN CELL VOLUME 93.2 fL (80-100); MEAN CORPUSCULAR HEMOGLOBIN 29.8 pg (25-34); MEAN PLATELET VOLUME 10.5 fL (7.4-10.4); MONO % 7.1 %; NEUT % 73.8 %; PLATELET COUNT 199 K/uL (130-400); RED BLOOD COUNT 4.29 M/uL (4.2-5.4); WHITE BLOOD COUNT 8.33 K/uL (4.8-10.8)
[2016-08-24 13:14] LABS: URINE APPEARANCE CLEAR (CLEAR); URINE BILIRUBIN NEG (NEG); URINE COLOR YELLOW; URINE NITRITE NEG (NEG); URINE SPECIFIC GRAVITY 1.006 (1.000-1.030); UROBILINOGEN NEG (NEG); ZZUR CULT IF INDIC CLEAN CATCH NO
[2016-08-24 13:16] LABS: MANUAL MICROSCOPIC REQUIRED? NO; REVIEW REQ? NO
[2016-08-24 13:23] LABS: BLOOD UREA NITROGEN 12 mg/dl (7-18); CALCIUM 9.5 mg/dl (8.5-10.1); CARBON DIOXIDE 29 mmol/L (21-32); CHLORIDE 103 mmol/L (98-107); GLUCOSE 138 mg/dl (70-99); MAGNESIUM 2.2 mg/dl (1.8-2.4); PHOSPHORUS 2.6 mg/dl (2.5-4.9); POTASSIUM 3.7 mmol/L (3.5-5.1); SODIUM 139 mmol/L (136-145)
[2016-08-24 13:38] LABS: URINE PROTIEN/CREAT RATIO 0.3 (0-0.2)
== END | disposition home or self-care (01) ==
LOC: C.LAB1850 11:37
PROVIDERS: ATTEND Internal Medicine Nephrology
DX: N18.3 Chronic kidney disease, stage 3 (moderate) (principal); M81.0 Age-related osteoporosis without current pathological fracture; M35.3 Polymyalgia rheumatica; R07.89 Other chest pain; Z79.52 Long term (current) use of systemic steroids; I65.29 Occlusion and stenosis of unspecified carotid artery; I25.10 Atherosclerotic heart disease of native coronary artery without angina pectoris; I34.0 Nonrheumatic mitral (valve) insufficiency; I07.1 Rheumatic tricuspid insufficiency; I77.1 Stricture of artery; I35.0 Nonrheumatic aortic (valve) stenosis; Q25.3 Supravalvular aortic stenosis; I13.10 Hypertensive heart and chronic kidney disease without heart failure, with stage 1 through stage 4 chronic kidney disease, or unspecified chronic kidney disease

== ENCOUNTER 2016-08-26 09:04 | Emergency (ER) | payer OTHER ==
[~2016-08-26] VITALS: Ht 167.6 cm; Wt 78.4 kg
[~2016-08-26 09:04] MED LIST changes: -AZIT500T PO; -CHOL4POW5 PO; -CITA20TA4 PO; -CLOP1TAB15 PO; -ESCI1TAB6 PO; -GABA-112 PO; -INSU1INJ33 SQ; -LORA-741 PO; -ONDA4TAB54 PO; -PANT40TA PO; -PRD/1 PO; -ROSU40TA PO; -WARF6TAB PO; -ZOLE5INJ IV; -ZOLP10TA6 PO
[2016-08-26 09:06] VITALS: TEMP 36.5; Ht 167.6 cm; Wt 78.4 kg
[2016-08-26 09:34] VITALS: O2SAT 95
--- NOTE | 2016-08-26 09:49 | DIAGNOSTIC IMAGING REPORT ---
SINGLE VIEW CHEST CLINICAL HISTORY: Dyspnea. Atypical chest pain. FINDINGS: An AP, portable, upright chest radiograph is compared to study dated 08/11/2016. The patient is status post midline sternotomy. The heart is enlarged and there is atherosclerotic calcification of the thoracic aorta. The pulmonary vascular structures noncongested. Chronic interstitial thickening is similar to previous. No airspace consolidation, large pleural effusion, or pneumothorax is seen. The skeletal structures are osteopenic. The bony thorax is grossly intact. Calcific tendinopathy is noted in left shoulder. IMPRESSION: Cardiomegaly with no acute cardiopulmonary abnormality. No significant change from 08/11/2016. Electronically signed by: Efren Taylor M.D. 08/26/2016 9:48 AM Dictated Date/Time: 08/26/2016 9:47 AM
[2016-08-26 09:51] LABS: HEMATOCRIT 38.9 % (37-47); MEAN CELL VOLUME 93.1 fL (80-100); MEAN CORPUSCULAR HEMOGLOBIN 29.4 pg (25-34); MEAN CORPUSCULAR HGB CONC 31.6 g/dl (32-36); MEAN PLATELET VOLUME 9.6 fL (7.4-10.4); PLATELET COUNT 176 K/uL (130-400); RED BLOOD COUNT 4.18 M/uL (4.2-5.4)
[2016-08-26 10:08] LABS: BUN/CREATININE RATIO 13.1 (10-20); CALCIUM 9.1 mg/dl (8.5-10.1); INR 1.7 (0.9-1.1); PARTIAL THROMBOPLASTIN RATIO 1.1; POTASSIUM 3.9 mmol/L (3.5-5.1); PROTHROMBIN TIME (PATIENT) 18.9 SECONDS (9.0-12.0)
[2016-08-26 10:13] LABS: ALB/GLOB RATIO 1.2 (0.9-2); CKMB/CK RATIO 2.2 (0-3.0)
--- NOTE | 2016-08-26 11:18 | EMERGENCY ROOM VISIT NOTE ---
History Report prepared by Ivana: Naseem Licea Under the Supervision of: Dr. Fanny Best D.O. First contact with patient: 09:37 Chief Complaint: CHEST PAIN Stated Complaint: CHEST PAIN,ARM PAIN,SOB Nursing Triage Summary: Patient reports diffuse chest pain and pain down both the right and left arm. Patient states it started while sitting in a chair this morning. Describes the charachteristics of pain as pressure. Patient reports she had open heart surgery at [facility] March of 2016 and had a cva the day after her surgery but has residual weakness on the right side. Patient reports she also felt like she was short of breath. Patient states she took two nitro this morning around 0800 and also put heat on her chest. Patient currently not having pain. History of Present Illness The patient is a 81 year old female who presents to the Emergency Room with complaints of persistent, diffuse chest pain starting this morning. She describes it to be a pressure in her chest. She was sitting at the time of the onset of her pain. She has a history of similar pain and reports that her current pain is more severe than it has been in the past. She also complains of dizziness and vision problems. The patient states that she becomes nauseated and dizzy when she puts on her glasses. She has an appointment with her neurologist on September 27. She has had multiple appointments with her employee development manager to correct the symptoms related to her glasses. The patient states that her anxiety is not under control. She does not follow up with psychologist. She has visited the Emergency Room 9 times since the beginning of 2016 for similar symptoms. During one of the visits, she was recommended to try Benadryl but she was unable to find it in the pharmacy. She has been taking Ambien for her symptoms without relief. Her PCP recently changed one of her medications but the patient is not sure about the details of the change. She was evaluated yesterday by her mechanical test technician who decreased the Prednisone dose from 10 mg to 7.5 mg. The patient has a history of stroke. She is on Coumadin. The patient denies shortness of breath, abdominal pain, or any other complaints. Source of History: patient Onset: this morning Position: chest (diffuse) Quality: pressure Timing: other (persistent) Associated Symptoms: No SOB, No abdominal pain Review of Systems See HPI for pertinent positives & negatives. A total of 10 systems reviewed and were otherwise negative. Past Medical & Surgical Medical Problems: (1) CAD (coronary artery disease) (2) Carcinoma of colon (3) Colectomy (4) Coronary artery disease involving [place] coronary artery (5) Diabetes (6) Dizziness (7) Familial combined hyperlipidemia (8) Peptic ulcer (9) Rheumatoid arthritis (10) Stable angina (11) Stroke (12) Vertigo Surgical Problems: (1) History of cholecystectomy (2) History of colectomy (3) Removal of pin, plate, lulu, or screw (4) S/P CABG x 3 Family History Cancer Diabetes mellitus FHx: aneurysm Heart disease Hypertension Social History Smoking Status: Never Smoker Alcohol Use: none Drug Use: none Marital Status: Housing Status: lives with significant other Occupation Status: retired Current/Historical Medications Scheduled Aspirin (Aspirin Ec), 81 MG PO DAILY Calcium Carbonate-Cholecalcife (Calcium 600 + D 600-200 mg-Unit), 1 TABS PO BID Cholecalciferol (Vitamin D3), 2,000 INTER.UNIT PO BID Insulin Aspart (Novolog Flexpen), 12 UNITS SC UD Insulin Aspart (Novolog Flexpen), 14 UNITS SQ SUPPER Insulin Detemir (Levemir), 10 UNITS SQ QPM Isosorbide Mononitrate (Isosorbide Mononitrate ER), 30 MG PO QAM Losartan Potassium (Cozaar), 100 MG PO DAILY Metoprolol Succinate (Metoprolol Succinate ER), 100 MG PO QPM Pantoprazole (Pantoprazole Sodium), 40 MG PO DAILY Prednisone (Prednisone), 7.5 MG PO QPM Rosuvastatin Calcium (Rosuvastatin Calcium), 40 MG PO DAILY Warfarin Sodium (Warfarin Sodium), 5 MG PO DIRECTED Zoledronic Acid (Reclast), 1 DOSE INJ YEARLY Zolpidem Tartrate (Zolpidem Tartrate), 5 MG PO DAILY Scheduled PRN Acetaminophen (Tylenol Extra Strength), 1,000 MG PO TID PRN for Pain Meclizine Hcl (Meclizine Hcl), 25 MG PO TID PRN for vertigo Nitroglycerin (Nitrostat), 0.4 MG UT UD PRN for Chest Pain Allergies Coded Allergies: Cefadroxil (Verified Allergy, Intermediate, UNKNOWN, 08/11/16) Clindamycin (Verified Allergy, Intermediate, UNKNOWN, 08/11/16) Levofloxacin (Verified Allergy, Intermediate, UNKNOWN, 08/11/16) Metronidazole (Verified Allergy, Intermediate, UNKNOWN, 08/11/16) Amoxicillin (Verified Adverse Reaction, Mild, diarrhea, 08/11/16) Clavulanic Acid (Verified Adverse Reaction, Mild, diarrhea, 08/11/16) Metformin (Verified Adverse Reaction, Mild, diarreha, 08/11/16) Sitagliptin (Verified Adverse Reaction, Mild, diarreha, 08/11/16) Physical Exam Vital Signs Date Time Temp Pulse Resp B/P Pulse Ox O2 Delivery O2 Flow Rate FiO2 08/26/16 13:20 68 20 158/68 94 08/26/16 12:03 66 20 125/69 94 Room Air 08/26/16 11:11 68 20 134/72 93 Room Air 08/26/16 09:37 65 08/26/16 09:34 95 Room Air 08/26/16 09:33 65 20 140/69 92 Room Air 08/26/16 09:32 92 Room Air 08/26/16 09:30 Room Air 08/26/16 09:06 36.5 78 20 148/79 94 Room Air Physical Exam General: Appears very anxious, tremulous. HEENT: Head - normocephalic and atraumatic Pupils are equal, round, and reactive to light. Extraocular eye muscles are intact, and sclera are anicteric. Nose - moist nasal mucosa without discharge. Mouth - moist buccal mucosa. Oropharynx is nonerythematous and there is no tonsillar exudate or edema noted. Neck: Supple; no JVD, nuchal rigidity, cervical lymphadenopathy, or auscultated bruits. Heart: Regular rate and rhythm. There is a normal S1 and S2 with no murmurs, clicks, or gallops appreciated. Lungs: Clear to auscultation bilaterally with no wheezes, rales, or rhonchi. Abdomen: Soft, completely nontender, nondistended, with good bowel sounds. There are no palpable pulsatile masses or hepatosplenomegaly. There is no guarding, rigidity, or rebound noted. Extremities: No evidence of cyanosis, clubbing, or edema. There are easily palpable peripheral pulses. Skin: warm and dry with good turgor and no rashes. Medical Decision & Procedures ER Provider Diagnostic Interpretation: X-ray results as stated below per interpretation by me and the radiologist: SINGLE VIEW CHEST CLINICAL HISTORY: Dyspnea. Atypical chest pain. FINDINGS: An AP, portable, upright chest radiograph is compared to study dated 08/11/2016. The patient is status post midline sternotomy. The heart is enlarged and there is atherosclerotic calcification of the thoracic aorta. The pulmonary vascular structures noncongested. Chronic interstitial thickening is similar to previous. No airspace consolidation, large pleural effusion, or pneumothorax is seen. The skeletal structures are osteopenic. The bony thorax is grossly intact. Calcific tendinopathy is noted in left shoulder. IMPRESSION: Cardiomegaly with no acute cardiopulmonary abnormality. No significant change from 08/11/2016. Electronically signed by: Efren Taylor M.D. 08/26/2016 9:48 AM Dictated Date/Time: 08/26/2016 9:47 AM Laboratory Results 08/26/16 09:25 08/26/16 09:25 Test 08/26/16 09:25 08/26/16 09:29 Red Blood Count 4.18 M/uL (4.2-5.4) Mean Corpuscular Volume 93.1 fL (80-100) Mean Corpuscular Hemoglobin 29.4 pg (25-34) Mean Corpuscular Hemoglobin Concent 31.6 g/dl (32-36) RDW Standard Deviation 54.4 fL (36.4-46.3) RDW Coefficient of Variation 15.9 % (11.5-14.5) Mean Platelet Volume 9.6 fL (7.4-10.4) Prothrombin Time 18.9 SECONDS (9.0-12.0) Prothromb Time International Ratio 1.7 (0.9-1.1) Activated Partial Thromboplast Time 29.4 SECONDS (21.0-31.0) Partial Thromboplastin Ratio 1.1 Anion Gap 11.0 mmol/L (3-11) Est Creatinine Clear Calc Drug Dose 47.4 ml/min Estimated GFR () 61.6 Estimated GFR (Non- 53.2 BUN/Creatinine Ratio 13.1 (10-20) Calcium Level 9.1 mg/dl (8.5-10.1) Total Bilirubin 0.7 mg/dl (0.2-1) Aspartate Amino Transf (AST/SGOT) 34 U/L (15-37) Alanine Aminotransferase (ALT/SGPT) 38 U/L (12-78) Alkaline Phosphatase 55 U/L (45-117) Total Creatine Kinase 27 U/L (26-192) Creatine Kinase MB 0.6 ng/ml (0.5-3.6) Creatine Kinase MB Ratio 2.2 (0-3.0) Total Protein 6.7 gm/dl (6.4-8.2) Albumin 3.6 gm/dl (3.4-5.0) Globulin 3.1 gm/dl (2.5-4.0) Albumin/Globulin Ratio 1.2 (0.9-2) Bedside Troponin I 0.000 ng/ml (0-0.045) Laboratory results per my review. ECG Indication: chest pain Rate (beats per minute): 73 Rhythm: normal sinus Findings: no acute ischemic change, no ectopy Comparison ECG Date: August 11, 2016 Change: no significant change ED Course 0937: Past medical records reviewed, this is her 9th visit to the Emergency Room since the beginning of 2016. The patient was evaluated in room A04B. A complete history and physical exam was performed. A 12-lead EKG was obtained. Laboratory studies were drawn as above. 1035: I discussed the patient's case with Dr. Tito Flores, who is covering for her primary care physician with [facility]. He explained that on August 03 she was started on 10 mg of citalopram which was increased to 20 mg. On August 08 she was started on 0.5 mg of Ativan once a day for the dizziness. He recommended increasing the citalopram dose to 40 mg and Ativan to 3 times a day. 1100: I discussed the patient's case with the Psych Gas Plant Specialist. 1143: The Psych Gas Plant Specialist is evaluating the patient. 1152: I spoke with the Psych Gas Plant Specialist who reported that the patient is agreeable to outpatient therapy. She will get the patient an appointment. 1252: Upon reevaluation, the patient is resting comfortably. I discussed findings and results with her. She verbalized agreement of the treatment plan. She was discharged home. Medical Decision This is an 81 year old female who presents to the Emergency Room with a chief complaint of chest pain. Differential diagnosis includes but is not limited to cardiac ischemia, anxiety, GERD, medication side effect from prednisone. Her labs showed normal white blood cell count, stable H&H, normal renal function and LFTs, glucose is 275, troponin is 0, INR is 1.7. This is an 81-year-old female patient that I have seen multiple times recently here in the emergency department with complaints of chest pain. The patient has had negative cardiac enzymes and a normal EKG during his visits. She has recently undergone 2 separate cardiac catheterizations which were negative. The patient does admit to significant insomnia, dizziness, visual changes since she had a stroke in the fall 2015. The patient does become very anxious about the fact that she is unable to do the things that she likes such as reading and knitting because of her vision. The patient is willing to see someone from outpatient therapy. In conjunction with her PCP, we will increase her dose of citalopram to 40 mg a day and increase her Ativan to 3 times daily. Also recommended that the patient stop the Ambien and try Benadryl for sleep aid. The patient was noted to be hyperglycemic. She does admit that she did not take her insulin this morning. As for the patient's INR, she will continue to take her usual dose and have the INR rechecked next week. Consults Time Called: [phone] Consulting Physician: Dr. Tito Flores, primary care physician with [facility] Returned Call: [phone] I discussed the patient's case with Dr. Tito Flores, [facility]. He explained that on August 03 she was started on 10 mg of citalopram which was increased to 20 mg. On August 08 she was started on 0.5 mg of Ativan for the dizziness. He recommended increasing the citalopram dose to 40 mg and Ativan to 3 times a day. Additional Consults: Time Called: 1038 Consulted Physician: Psych Gas Plant Specialist Returned Call: [phone] Additional Comments: I discussed the patient's case with the Psych Gas Plant Specialist. Impression Primary Impression: Atypical chest pain Additional Impressions: Anxiety Hyperglycemia Sleep deprivation Subtherapeutic international normalized ratio (INR) Scribe Attestation The scribe's documentation has been prepared under my direction and personally reviewed by me in its entirety. I confirm that the note above accurately reflects all work, treatment, procedures, and medical decision making performed by me. Departure Information Dispostion Home / Self-Care Referrals Davion Flores M.D. (PCP) Forms HOME CARE DOCUMENTATION FORM, IMPORTANT VISIT INFORMATION Patient Instructions My [facility] [employer] Additional Instructions Increase ativan dose to 0.5mg every 8 hours Increase citalopram to 40mg a day. Use benadryl at night for sleep(stop the ambien if you use this.) Follow up with your appointment on September 08 Problem Qualifiers
[2016-08-26 13:20] VITALS: BP 158/68; PULSE 68; O2SAT 94
[2016-09-15] MEDS ORDERED: GABA-112 PO (20:29)
[2016-09-22] MEDS ORDERED: CHOL2000 PO (09:45)
[2016-09-22] MEDS ORDERED: AZIT500T PO (09:45)
[2016-09-22] MEDS ORDERED: PRED-301 PO (09:45)
[2016-09-22] MEDS ORDERED: ONDA4TAB54 PO (09:45)
[2016-09-22] MEDS ORDERED: PANT40TA PO (09:45)
[2016-10-18] MEDS ORDERED: ESCI1TAB6 PO (09:50)
[2016-10-18] MEDS ORDERED: CLOP1TAB15 PO (09:50)
[2016-10-18] MEDS ORDERED: ROSU40TA PO (09:50)
[2016-10-18] MEDS ORDERED: GABA-112 PO (09:50)
[2016-10-18] MEDS ORDERED: INSU1INJ33 SQ (09:50)
== END 2016-08-26 13:15 | disposition home or self-care (01) ==
LOC: C.EDB 09:05 → C.EDA 13:15
DX: R07.89 Other chest pain (principal); F41.9 Anxiety disorder, unspecified; E11.65 Type 2 diabetes mellitus with hyperglycemia; I25.10 Atherosclerotic heart disease of native coronary artery without angina pectoris; E78.4 Other hyperlipidemia; M06.9 Rheumatoid arthritis, unspecified; Z85.038 Personal history of other malignant neoplasm of large intestine; Z86.73 Personal history of transient ischemic attack (TIA), and cerebral infarction without residual deficits; Z95.1 Presence of aortocoronary bypass graft; Z90.49 Acquired absence of other specified parts of digestive tract; Z98.890 Other specified postprocedural states; Z79.82 Long term (current) use of aspirin; Z79.01 Long term (current) use of anticoagulants; Z79.4 Long term (current) use of insulin; Z79.899 Other long term (current) drug therapy; Z88.1 Allergy status to other antibiotic agents; Z88.8 Allergy status to other drugs, medicaments and biological substances; Z80.9 Family history of malignant neoplasm, unspecified; Z83.3 Family history of diabetes mellitus; Z82.49 Family history of ischemic heart disease and other diseases of the circulatory system

== ENCOUNTER → 2016-08-31 | Outpatient (CLI) | payer OTHER ==
[~2016-08-31] MED LIST changes: +AZIT500T PO; +CHOL4POW5 PO; +CITA20TA4 PO; +CLOP1TAB15 PO; +ESCI1TAB6 PO; +GABA-112 PO; +INSU1INJ33 SQ; +LORA-741 PO; +ONDA4TAB54 PO; +PANT40TA PO; +PRD/1 PO; +ROSU40TA PO; +WARF6TAB PO; +ZOLE5INJ IV; +ZOLP10TA6 PO
--- NOTE | 2016-08-31 13:07 | DIAGNOSTIC IMAGING REPORT ---
NUCLEAR GASTRIC EMPTYING STUDY HISTORY: Nausea. COMPARISON: None. TECHNIQUE: Following the oral administration of 1.1 mCi of technetium 99m sulfur colloid in egg sandwich and 8 ounces of water, static abdominal images are obtained anteriorly and posteriorly at 0 minutes, 1 hour, 2 hour, and 4 hour time intervals. Gastric emptying was calculated utilizing the geometric mean method. FINDINGS: There is approximately 79% activity remaining at the 1 hour time interval (normal is less than 90%), 35% remaining at the 2 hour time interval (normal is less than 60%), and 0% activity remaining at the 4 hour time interval (normal is less than 10%). IMPRESSION: No evidence for delayed gastric emptying. Electronically signed by: Marcus Jacob M.D. 08/31/2016 1:05 PM Dictated Date/Time: 08/31/2016 1:05 PM
== END | disposition home or self-care (01) ==
LOC: C.NUCL 08:13
PROVIDERS: ATTEND Internal Medicine Geriatric Medicine
DX: R11.0 Nausea (principal)

== ENCOUNTER 2016-09-01 14:50 | Emergency (ER) | payer OTHER ==
[~2016-09-01] VITALS: Ht 167.6 cm; Wt 78.0 kg
[~2016-09-01 14:50] MED LIST changes: -AZIT500T PO; -CHOL4POW5 PO; -CITA20TA4 PO; -CLOP1TAB15 PO; -ESCI1TAB6 PO; -GABA-112 PO; -INSU1INJ33 SQ; -LORA-741 PO; -ONDA4TAB54 PO; -PANT40TA PO; -PRD/1 PO; -ROSU40TA PO; -WARF6TAB PO; -ZOLE5INJ IV; -ZOLP10TA6 PO
[2016-09-01 14:54] VITALS: TEMP 36.5; Ht 167.6 cm; Wt 78.0 kg
[2016-09-01 15:01] VITALS: O2SAT 94
[2016-09-01 15:29] LABS: HEMATOCRIT 37.4 % (37-47); MEAN CELL VOLUME 92.3 fL (80-100); MEAN CORPUSCULAR HEMOGLOBIN 29.6 pg (25-34); MEAN CORPUSCULAR HGB CONC 32.1 g/dl (32-36); MEAN PLATELET VOLUME 9.8 fL (7.4-10.4); PLATELET COUNT 172 K/uL (130-400); RED BLOOD COUNT 4.05 M/uL (4.2-5.4); WHITE BLOOD COUNT 7.59 K/uL (4.8-10.8)
--- NOTE | 2016-09-01 15:31 | DIAGNOSTIC IMAGING REPORT ---
CHEST ONE VIEW PORTABLE CLINICAL HISTORY: Atypical chest pain COMPARISON STUDY: 08/26/2016 FINDINGS: There are postsurgical changes of a midline sternotomy. The heart is the upper limits of normal in size. There is no failure. There is no focal pulmonary consolidation. There are no pleural effusions.[ IMPRESSION: No active disease in the chest. Electronically signed by: Ady Mendez M.D. 09/01/2016 3:30 PM Dictated Date/Time: 09/01/2016 3:30 PM
--- NOTE | 2016-09-01 15:37 | EMERGENCY ROOM VISIT NOTE ---
History Report prepared by Ivana: Carter Atkins Under the Supervision of: Dr. Ancelmo Cárdenas M.D. First contact with patient: 15:28 Chief Complaint: CHEST PAIN Stated Complaint: CHEST PAIN Nursing Triage Summary: Patient with known cardiac history s/p CABG in the fall. Patient reports sudden onset of left lateral chest wall pain this morning. negative associated SOB, acute nausea, vomiting, or diaphoresis. Patient has chronic nausea. patient reports pain as intermittent. Negative cough or fever. History of Present Illness The patient is an 81 year old female who presents to the Emergency Room with complaints of resolved left-sided chest pain that started after she ate lunch today. The patient no longer feels the pain but notes some persistent discomfort. The pain was rated 4/10 in severity. The patient is not sure if the pain was from eating. The discomfort radiates to the left arm. The patient notes that the chest pain was different from chest pain that has brought her to the ED in the past. The patient is also feeling nauseous and had diarrhea yesterday. She denies shortness of breath, vomiting, burning with urination, or rashes. She denies any recent falls or head trauma. The patient has been compliant with her insulin and Coumadin. Source of History: patient Onset: today Position: chest (left) Symptom Intensity: 4/10 Timing: resolved Associated Symptoms: + diarrhea, + nausea, No SOB, No rash, No urinary symptoms, No vomiting Review of Systems See HPI for pertinent positives & negatives. A total of 10 systems reviewed and were otherwise negative. Past Medical & Surgical Medical Problems: (1) CAD (coronary artery disease) (2) Carcinoma of colon (3) Colectomy (4) Coronary artery disease involving [place] coronary artery (5) Diabetes (6) Dizziness (7) Familial combined hyperlipidemia (8) Peptic ulcer (9) Rheumatoid arthritis (10) Stable angina (11) Stroke (12) Vertigo Surgical Problems: (1) History of cholecystectomy (2) History of colectomy (3) Removal of pin, plate, lulu, or screw (4) S/P CABG x 3 Family History Cancer Diabetes mellitus FHx: aneurysm Heart disease Hypertension Social History Smoking Status: Never Smoker Alcohol Use: none Drug Use: none Marital Status: Housing Status: lives with significant other Occupation Status: retired Current/Historical Medications Scheduled Aspirin (Aspirin Ec), 81 MG PO DAILY Calcium Carbonate-Cholecalcife (Calcium 600 + D 600-200 mg-Unit), 1 TABS PO BID Cholecalciferol (Vitamin D3), 2,000 INTER.UNIT PO BID Insulin Aspart (Novolog Flexpen), 12 UNITS SC UD Insulin Aspart (Novolog Flexpen), 14 UNITS SQ SUPPER Insulin Detemir (Levemir), 10 UNITS SQ QPM Isosorbide Mononitrate (Isosorbide Mononitrate ER), 30 MG PO QAM Lorazepam (Ativan), 0.5 MG PO HS Losartan Potassium (Cozaar), 100 MG PO DAILY Metoprolol Succinate (Metoprolol Succinate ER), 100 MG PO QPM Pantoprazole (Pantoprazole Sodium), 40 MG PO DAILY Prednisone (Prednisone), 7.5 MG PO QAM Rosuvastatin Calcium (Rosuvastatin Calcium), 40 MG PO qp Warfarin Sodium (Warfarin Sodium), 5 MG PO DIRECTED Zoledronic Acid (Reclast), 1 DOSE INJ YEARLY Zolpidem Tartrate (Zolpidem Tartrate), 10 MG PO HS Scheduled PRN Acetaminophen (Tylenol Extra Strength), 1,000 MG PO TID PRN for Pain Meclizine Hcl (Meclizine Hcl), 25 MG PO TID PRN for vertigo Nitroglycerin (Nitrostat), 0.4 MG UT UD PRN for Chest Pain Allergies Coded Allergies: Cefadroxil (Verified Allergy, Intermediate, UNKNOWN, 08/11/16) Clindamycin (Verified Allergy, Intermediate, UNKNOWN, 08/11/16) Levofloxacin (Verified Allergy, Intermediate, UNKNOWN, 08/11/16) Metronidazole (Verified Allergy, Intermediate, UNKNOWN, 08/11/16) Amoxicillin (Verified Adverse Reaction, Mild, diarrhea, 08/11/16) Clavulanic Acid (Verified Adverse Reaction, Mild, diarrhea, 08/11/16) Metformin (Verified Adverse Reaction, Mild, diarreha, 08/11/16) Sitagliptin (Verified Adverse Reaction, Mild, diarreha, 08/11/16) Physical Exam Vital Signs Date Time Temp Pulse Resp B/P Pulse Ox O2 Delivery O2 Flow Rate FiO2 09/01/16 16:52 66 16 124/64 96 09/01/16 16:00 72 16 150/53 95 09/01/16 15:20 Room Air 09/01/16 15:20 96 Room Air 09/01/16 15:13 86 09/01/16 15:01 94 Room Air 09/01/16 14:54 36.5 109 20 142/73 93 Room Air Physical Exam GENERAL: Patient is anxious appearing and in minimal distress. HEENT: No acute trauma, normocephalic atraumatic, mucous membranes moist, no nasal congestion, no scleral icterus. NECK: No stridor, no adenopathy, no meningismus, trachea is midline. LUNGS: No dyspnea. Clear to auscultation and equal bilaterally. No wheeze, no rhonchi. HEART: Regular rate and rhythm. No murmurs, rubs, gallops appreciated. CHEST: Diffuse tenderness to the entire upper chest. ABDOMEN: Soft, nontender, bowel sounds positive, no masses appreciated, no peritonitis. BACK: No midline tenderness, no CVA tenderness EXTREMITIES: Normal motion all extremities, no cyanosis, no edema. NEUROLOGIC: Alert and oriented, no acute motor or sensory deficits, no focal weakness, cranial nerves grossly intact. SKIN: No rash, no jaundice, no diaphoresis. Medical Decision & Procedures ER Provider Diagnostic Interpretation: X ray results are stated below per my interpretation and the radiologist's interpretation. CHEST ONE VIEW PORTABLE CLINICAL HISTORY: Atypical chest pain COMPARISON STUDY: 08/26/2016 FINDINGS: There are postsurgical changes of a midline sternotomy. The heart is the upper limits of normal in size. There is no failure. There is no focal pulmonary consolidation. There are no pleural effusions.[ IMPRESSION: No active disease in the chest. Electronically signed by: Ady Mendez M.D. 09/01/2016 3:30 PM Dictated Date/Time: 09/01/2016 3:30 PM Laboratory Results 09/01/16 15:15 09/01/16 15:15 Test 09/01/16 15:15 09/01/16 16:53 Red Blood Count 4.05 M/uL (4.2-5.4) Mean Corpuscular Volume 92.3 fL (80-100) Mean Corpuscular Hemoglobin 29.6 pg (25-34) Mean Corpuscular Hemoglobin Concent 32.1 g/dl (32-36) RDW Standard Deviation 53.6 fL (36.4-46.3) RDW Coefficient of Variation 15.8 % (11.5-14.5) Mean Platelet Volume 9.8 fL (7.4-10.4) Prothrombin Time 18.0 SECONDS (9.0-12.0) Prothromb Time International Ratio 1.6 (0.9-1.1) Activated Partial Thromboplast Time 28.8 SECONDS (21.0-31.0) Partial Thromboplastin Ratio 1.1 Anion Gap 7.0 mmol/L (3-11) Est Creatinine Clear Calc Drug Dose 36.4 ml/min Estimated GFR () 44.9 Estimated GFR (Non- 38.7 BUN/Creatinine Ratio 13.4 (10-20) Calcium Level 9.0 mg/dl (8.5-10.1) Magnesium Level 2.2 mg/dl (1.8-2.4) Total Bilirubin 0.5 mg/dl (0.2-1) Aspartate Amino Transf (AST/SGOT) 22 U/L (15-37) Alanine Aminotransferase (ALT/SGPT) 30 U/L (12-78) Alkaline Phosphatase 52 U/L (45-117) Total Creatine Kinase 38 U/L (26-192) Creatine Kinase MB 0.7 ng/ml (0.5-3.6) Creatine Kinase MB Ratio 1.8 (0-3.0) Troponin I < 0.015 ng/ml (0-0.045) Total Protein 6.9 gm/dl (6.4-8.2) Albumin 3.7 gm/dl (3.4-5.0) Globulin 3.2 gm/dl (2.5-4.0) Albumin/Globulin Ratio 1.2 (0.9-2) Bedside Troponin I 0.000 ng/ml (0-0.045) Laboratory results as reviewed by me. ECG Indication: chest pain Rate (beats per minute): 78 Rhythm: normal sinus Findings: nonspecific-ST abn, no acute ischemic change, no ectopy Comparison ECG Date: 26 August 2016 Change: no significant change ED Course 1531: The patient was evaluated in room A11b. A complete history and physical exam was performed. 1545: Spoke with Dr. Flores. Discussed the case. 1715: Reassessed the patient. Discussed the findings with her. She verbalized understanding and agreement of the treatment plan. The patient is ready for discharge. Medical Decision Differential: Cardiac Ischemia (STEMI, NSTEMI, Unstable Angina, etc), Aortic Dissection, Arrhythmia, Pulmonary Embolism, Pneumonia, Pneumothorax, MSK, Infectious, Pericarditis/Myocarditis, Esophageal Rupture, Gastrointestinal, amongst other pathologies entertained. 81 yr old female with known CAD and recent CABG arrives for evaluation fo clearly reproducible chest tenderness. Review of chart and discussion with patient makes clear this has occurred regularly and she has been evaluated multiple times over last few weeks for same. EKG unchanged, trop x 2 negative and patient looks well. Seems likely combination anxiety (documented many times prior) along with MSK discomfort. No evidence dissection and symptoms not consistent with PE. No evidence infectious, esophageal, GI, or other currently. Discussed with PCP who will follow up with her as outpatient. Stable and feeling better with re-assurance. Discussed that we are always here to help and evaluate. Consults Time Called: [phone] Consulting Physician: Dr. Flores. Returned Call: [phone]: Spoke with Dr. Flores. Discussed the case. Impression Primary Impression: Chest wall pain Additional Impression: Atypical chest pain Scribe Attestation The scribe's documentation has been prepared under my direction and personally reviewed by me in its entirety. I confirm that the note above accurately reflects all work, treatment, procedures, and medical decision making performed by me. Departure Information Dispostion Home / Self-Care Referrals Davion Flores M.D. (PCP) Forms HOME CARE DOCUMENTATION FORM, IMPORTANT VISIT INFORMATION Patient Instructions ED Chest Pain Atypical Unkn Cause, My [facility] Problem Qualifiers
[2016-09-01 15:38] LABS: INR 1.6 (0.9-1.1); PARTIAL THROMBOPLASTIN RATIO 1.1
[2016-09-01 15:43] LABS: BUN/CREATININE RATIO 13.4 (10-20); CREATININE 1.3 mg/dl (0.60-1.20); POTASSIUM 4.4 mmol/L (3.5-5.1)
[2016-09-01 15:48] LABS: ALB/GLOB RATIO 1.2 (0.9-2); CKMB/CK RATIO 1.8 (0-3.0)
[2016-09-01 15:59] LABS: MAGNESIUM 2.2 mg/dl (1.8-2.4)
[2016-09-01] MEDS ORDERED: LORA-741 PO (16:08)
[2016-09-01 16:52] VITALS: BP 124/64; PULSE 66; O2SAT 96
[2016-09-15] MEDS ORDERED: GABA-112 PO (20:29)
[2016-09-22] MEDS ORDERED: AZIT500T PO (09:45)
[2016-09-22] MEDS ORDERED: PRED-301 PO (09:45)
[2016-09-22] MEDS ORDERED: PANT40TA PO (09:45)
[2016-09-22] MEDS ORDERED: CHOL2000 PO (09:45)
[2016-09-22] MEDS ORDERED: ONDA4TAB54 PO (09:45)
[2016-10-18] MEDS ORDERED: CLOP1TAB15 PO (09:50)
[2016-10-18] MEDS ORDERED: ESCI1TAB6 PO (09:50)
[2016-10-18] MEDS ORDERED: INSU1INJ33 SQ (09:50)
[2016-10-18] MEDS ORDERED: ROSU40TA PO (09:50)
[2016-10-18] MEDS ORDERED: GABA-112 PO (09:50)
== END 2016-09-01 17:28 | disposition home or self-care (01) ==
LOC: C.EDB 14:51 → C.EDA 17:28
DX: R07.89 Other chest pain (principal); I25.10 Atherosclerotic heart disease of native coronary artery without angina pectoris; E11.9 Type 2 diabetes mellitus without complications; E78.4 Other hyperlipidemia; M06.9 Rheumatoid arthritis, unspecified; Z85.038 Personal history of other malignant neoplasm of large intestine; Z86.73 Personal history of transient ischemic attack (TIA), and cerebral infarction without residual deficits; Z87.11 Personal history of peptic ulcer disease; Z95.1 Presence of aortocoronary bypass graft; Z90.49 Acquired absence of other specified parts of digestive tract; Z79.4 Long term (current) use of insulin; Z79.82 Long term (current) use of aspirin; Z79.01 Long term (current) use of anticoagulants; Z79.899 Other long term (current) drug therapy; Z80.9 Family history of malignant neoplasm, unspecified; Z83.3 Family history of diabetes mellitus; Z82.49 Family history of ischemic heart disease and other diseases of the circulatory system

== ENCOUNTER 2016-09-15 19:16 | Emergency (ER) | payer OTHER ==
[~2016-09-15] VITALS: Ht 167.6 cm; Wt 77.9 kg
[~2016-09-15 19:16] MED LIST changes: -ACET-1257 PO; -CALC-452 PO; -IMDSR30 PO; -NITR0.4S UT; +PANT40TA2 PO; -PRT/40 PO; -TPRSR/100 PO
[2016-09-15 19:22] VITALS: Ht 167.6 cm; Wt 77.9 kg
[2016-09-15 19:42] VITALS: O2SAT 93
[2016-09-15 19:48] LABS: BASO % 0.1 %; BASO ABS # 0.01 K/uL (0-0.2); COMPLETE YES; EOS % 0.3 %; HEMATOCRIT 39.2 % (37-47); IG% 0.4 %; LYMPH % 28.8 %; LYMPH ABS # 2.01 K/uL (1.2-3.4); MEAN CELL VOLUME 92.2 fL (80-100); MEAN CORPUSCULAR HEMOGLOBIN 29.6 pg (25-34); MEAN CORPUSCULAR HGB CONC 32.1 g/dl (32-36); MEAN PLATELET VOLUME 9.9 fL (7.4-10.4); MONO % 11.6 %; NEUT % 58.8 %; PLATELET COUNT 175 K/uL (130-400); RED BLOOD COUNT 4.25 M/uL (4.2-5.4); WHITE BLOOD COUNT 6.99 K/uL (4.8-10.8)
[2016-09-15] MEDS ORDERED: LIDOCAINE HCL 2% VISC SOLN 20 ML UDC PO STA (19:48)
[2016-09-15] MEDS ORDERED: ACETAMINOPHEN 500 MG TAB PO STA (19:48)
[2016-09-15] MEDS ORDERED: ALUMINUM/MAGNESIUM SUSP 30 ML UDC PO STA (19:48)
--- NOTE | 2016-09-15 19:58 | DIAGNOSTIC IMAGING REPORT ---
CHEST ONE VIEW PORTABLE CLINICAL HISTORY: Atypical chest pain COMPARISON STUDY: 09/01/2016 FINDINGS: The cardiac and mediastinal contours remain stable. There are postsurgical changes of a midline sternotomy. There is no failure. There is no focal pulmonary consolidation. There are no pleural effusions.[ IMPRESSION: No active disease in the chest. Electronically signed by: Ady Mendez M.D. 09/15/2016 7:56 PM Dictated Date/Time: 09/15/2016 7:56 PM
[2016-09-15 20:18] LABS: ALKALINE PHOSPHATASE 89 U/L (45-117); ALT/SGPT 56 U/L (12-78); AST/SGOT 52 U/L (15-37); BLOOD UREA NITROGEN 22 mg/dl (7-18); BUN/CREATININE RATIO 16.5 (10-20); CALCIUM 9.1 mg/dl (8.5-10.1); CARBON DIOXIDE 24 mmol/L (21-32); CHLORIDE 106 mmol/L (98-107); GLUCOSE 206 mg/dl (70-99); POTASSIUM 4.2 mmol/L (3.5-5.1); SODIUM 140 mmol/L (136-145)
[2016-09-15] MEDS ORDERED: CITA20TA4 PO (20:29)
[2016-09-15] MEDS ORDERED: WARF6TAB PO (20:29)
[2016-09-15 20:34] LABS: INR 1.9 (0.9-1.1); PARTIAL THROMBOPLASTIN RATIO 1.2; PROTHROMBIN TIME (PATIENT) 21.3 SECONDS (9.0-12.0)
[2016-09-15] MEDS ORDERED: TRAMADOL HCL 50 MG TAB PO STA (20:58)
--- NOTE | 2016-09-15 22:24 | EMERGENCY ROOM VISIT NOTE ---
History First contact with patient: 19:27 Chief Complaint: CHEST PAIN Stated Complaint: CHEST PAIN Nursing Triage Summary: Triage Notes: Patient reports left sided CP that began around 1730 today and is radiating down left arm. Denies any associated s/s. Patient had bypass in March. History of Present Illness The patient is a 81 year old female who presents to the Emergency Room with complaints of anterior chest pain that is worse with movement and better with rest since 5 PM tonight. Patient does a lot of ironing today. Patient states anytime she moves the pain is worse. Is currently 3 out of 10. She's had this problem before. She is on chronic prednisone for RA. She had a CABG in March 2016. She follows with Dr. Walters. Patient denies fall, dyspnea, neck pain, jaw pain, back pain, abdominal pain, leg pain, nausea, vomiting, diarrhea , diaphoresis, lightheadedness or dizziness. She is tolerating by mouth fluids and food. Patient states she had eggs and ham for dinner and then the symptoms started. She is on Coumadin for prior CVA. Review of Systems See HPI for pertinent positives & negatives. A total of 10 systems reviewed and were otherwise negative. Past Medical/Surgical History Medical Problems: (1) CAD (coronary artery disease) (2) Carcinoma of colon (3) Colectomy (4) Coronary artery disease involving wiyot coronary artery (5) Diabetes (6) Dizziness (7) Familial combined hyperlipidemia (8) Peptic ulcer (9) Rheumatoid arthritis (10) Stable angina (11) Stroke (12) Vertigo Surgical Problems: (1) History of cholecystectomy (2) History of colectomy (3) Removal of pin, plate, lulu, or screw (4) S/P CABG x 3 Family History Cancer Diabetes mellitus FHx: aneurysm Heart disease Hypertension Social History Smoking Status: Never Smoker Alcohol Use: none Drug Use: none Marital Status: Housing Status: lives with significant other Occupation Status: retired Current/Historical Medications Scheduled Aspirin (Aspirin Ec), 81 MG PO DAILY Calcium Carbonate-Cholecalcife (Calcium 600 + D 600-200 mg-Unit), 1 TABS PO BID Cholecalciferol (Vitamin D3), 2,000 INTER.UNIT PO BID Citalopram Hydrobromide (Citalopram Hydrobromide), 20 MG PO DAILY Gabapentin (Neurontin), 100 MG PO BID Insulin Aspart (Novolog Flexpen), 12 UNITS SC UD Insulin Aspart (Novolog Flexpen), 14 UNITS SQ SUPPER Insulin Detemir (Levemir), 10 UNITS SQ QPM Isosorbide Mononitrate (Isosorbide Mononitrate ER), 30 MG PO QAM Lorazepam (Ativan), 0.5 MG PO HS Losartan Potassium (Cozaar), 100 MG PO DAILY Metoprolol Succinate (Metoprolol Succinate ER), 100 MG PO QPM Pantoprazole (Pantoprazole Sodium), 40 MG PO DAILY Prednisone (Prednisone), 7.5 MG PO QAM Rosuvastatin Calcium (Rosuvastatin Calcium), 40 MG PO QPM Warfarin Sodium (Coumadin), 6 MG PO DAILY Zolpidem Tartrate (Zolpidem Tartrate), 10 MG PO HS Scheduled PRN Acetaminophen (Tylenol Extra Strength), 1,000 MG PO TID PRN for Pain Nitroglycerin (Nitrostat), 0.4 MG UT UD PRN for Chest Pain Allergies Coded Allergies: Cefadroxil (Verified Allergy, Intermediate, UNKNOWN, 09/15/16) Clindamycin (Verified Allergy, Intermediate, UNKNOWN, 09/15/16) Levofloxacin (Verified Allergy, Intermediate, UNKNOWN, 09/15/16) Metronidazole (Verified Allergy, Intermediate, UNKNOWN, 09/15/16) Amoxicillin (Verified Adverse Reaction, Mild, diarrhea, 09/15/16) Clavulanic Acid (Verified Adverse Reaction, Mild, diarrhea, 09/15/16) Metformin (Verified Adverse Reaction, Mild, diarreha, 09/15/16) Sitagliptin (Verified Adverse Reaction, Mild, diarreha, 09/15/16) Physical Exam Vital Signs Date Time Temp Pulse Resp B/P Pulse Ox O2 Delivery O2 Flow Rate FiO2 09/15/16 21:22 67 18 167/88 93 Room Air 09/15/16 20:06 67 09/15/16 19:42 93 Room Air 09/15/16 19:35 93 Room Air 09/15/16 19:30 Room Air 09/15/16 19:22 36.6 83 20 149/80 93 Room Air Physical Exam VITALS: Vitals are noted on the nurse's note and reviewed by myself. Vital signs stable. GENERAL: Pleasant anxious-appearing elderly female, in no acute distress, nondiaphoretic, well-developed well-nourished. SKIN: The skin was without rashes, erythema, edema, or bruising. There is no tenting of the skin. Capillary reflex less than 2 seconds. HEAD: Normocephalic atraumatic. EARS: External auditory canals clear, tympanic membranes pearly ocasio without erythema or effusion bilaterally. EYES: Pupils equal round and reactive to light and accommodation. Conjunctivae without injection, sclerae without icterus. Extraocular movements intact. NOSE: Patent, turbinates without inflammation or discharge. MOUTH: Mucous membranes moist. Pharynx without erythema or exudate. Uvula midline. Airway patent. Tongue does not deviate. NECK: Supple without nuchal rigidity. No lymphadenopathy. No thyromegaly. Cervical spine is nontender. No JVD. HEART: Regular rate and rhythm anterior chest tender to palpation easily reproducing symptoms LUNGS: Clear to auscultation bilaterally without wheezes, rales or rhonchi. No dullness to percussion. No retractions or accessory muscle use. ABDOMEN: Positive bowel sounds x 4. Normal tympanic percussion. Soft, nontender, without masses or organomegaly. Salgado sign negative. No guarding or rebound tenderness. MUSCULOSKELETAL: No muscle atrophy, noted. NEURO: Patient was alert and oriented to person place and time. Normal sensation to light and sharp touch. No focal neurological deficits. Medical Decision & Procedures Laboratory Results 09/15/16 19:35 Red Blood Count 4.25, Mean Corpuscular Volume 92.2, Mean Corpuscular Hemoglobin 29.6, Mean Corpuscular Hemoglobin Concent 32.1, Mean Platelet Volume 9.9, Neutrophils (%) (Auto) 58.8, Lymphocytes (%) (Auto) 28.8, Monocytes (%) (Auto) 11.6, Eosinophils (%) (Auto) 0.3, Basophils (%) (Auto) 0.1, Neutrophils # (Auto ) 4.11, Lymphocytes # (Auto) 2.01, Monocytes # (Auto) 0.81, Eosinophils # (Auto ) 0.02, Basophils # (Auto) 0.01 09/15/16 19:35 Test 09/15/16 19:35 09/15/16 20:11 09/15/16 21:51 White Blood Count 6.99 K/uL (4.8-10.8) Red Blood Count 4.25 M/uL (4.2-5.4) Hemoglobin 12.6 g/dL (12.0-16.0) Hematocrit 39.2 % (37-47) Mean Corpuscular Volume 92.2 fL (80-100) Mean Corpuscular Hemoglobin 29.6 pg (25-34) Mean Corpuscular Hemoglobin Concent 32.1 g/dl (32-36) Platelet Count 175 K/uL (130-400) Mean Platelet Volume 9.9 fL (7.4-10.4) Neutrophils (%) (Auto) 58.8 % Lymphocytes (%) (Auto) 28.8 % Monocytes (%) (Auto) 11.6 % Eosinophils (%) (Auto) 0.3 % Basophils (%) (Auto) 0.1 % Neutrophils # (Auto) 4.11 K/uL (1.4-6.5) Lymphocytes # (Auto) 2.01 K/uL (1.2-3.4) Monocytes # (Auto) 0.81 K/uL (0.11-0.59) Eosinophils # (Auto) 0.02 K/uL (0-0.5) Basophils # (Auto) 0.01 K/uL (0-0.2) RDW Standard Deviation 53.1 fL (36.4-46.3) RDW Coefficient of Variation 15.7 % (11.5-14.5) Immature Granulocyte % (Auto) 0.4 % Immature Granulocyte # (Auto) 0.03 K/uL (0.00-0.02) Anion Gap 10.0 mmol/L (3-11) Est Creatinine Clear Calc Drug Dose 36.4 ml/min Estimated GFR () 44.9 Estimated GFR (Non- 38.7 BUN/Creatinine Ratio 16.5 (10-20) Calcium Level 9.1 mg/dl (8.5-10.1) Total Bilirubin 0.4 mg/dl (0.2-1) Direct Bilirubin mg/dl (0-0.2) Aspartate Amino Transf (AST/SGOT) 52 U/L (15-37) Alanine Aminotransferase (ALT/SGPT) 56 U/L (12-78) Alkaline Phosphatase 89 U/L (45-117) Total Protein 7.1 gm/dl (6.4-8.2) Albumin 3.9 gm/dl (3.4-5.0) Lipase 158 U/L (73-393) Chemistry Specimen Hemolysis Prothrombin Time 21.3 SECONDS (9.0-12.0) Prothromb Time International Ratio 1.9 (0.9-1.1) Activated Partial Thromboplast Time 30.3 SECONDS (21.0-31.0) Partial Thromboplastin Ratio 1.2 Bedside Troponin I 0.010 ng/ml (0-0.045) Medications Administered Medications (Trade) Dose Ordered Sig/Sincere Route Start Time Stop Time Status Last Admin Dose Admin Lidocaine HCl (Viscous Lidocaine 2% Soln) 10 ml NOW STAT PO 09/15/16 19:48 09/15/16 19:49 DC 09/15/16 20:00 10 ML Al Hydroxide/Mg Hydroxide (Maalox Susp) 30 ml NOW STAT PO 09/15/16 19:48 09/15/16 19:49 DC 09/15/16 20:00 30 ML Tramadol HCl (Ultram Tab) 50 mg ONE STAT PO 09/15/16 20:58 09/15/16 20:59 DC 09/15/16 21:21 50 MG ED Course Prior records/ancillary studies reviewed. Triage Nursing notes reviewed. Additional history obtained from family The patient's history was concerning for chest pain. Differential diagnosis: Etiologies such as cardiac ischemia, aortic dissection, pulmonary embolism, pneumonia, pneumothorax, musculoskeletal, infections, pericarditis, myocarditis , esophageal rupture, gastrointestinal, as well as others were entertained. Physical examination: As above. ER treatment provided: GI cocktail, Ultram On reassessment the patient felt better. Diagnostic interpretation by me: The electrocardiogram was negative for pathologic change. Normal sinus, normal intervals, no acute ST-T wave changes. Impression normal sinus rhythm interpreted by myself The labs revealed troponin 2 2 hours apart that are negative, stable creatinine per chart review 1.3 Imaging studies: Chest x-ray as above CHEST ONE VIEW PORTABLE CLINICAL HISTORY: Atypical chest pain COMPARISON STUDY: 09/01/2016 FINDINGS: The cardiac and mediastinal contours remain stable. There are postsurgical changes of a midline sternotomy. There is no failure. There is no focal pulmonary consolidation. There are no pleural effusions.[ IMPRESSION: No active disease in the chest. Electronically signed by: Ady Mendez M.D. Exam and history seem consistent with noncardiac chest pain. Patient symptoms are easily reproduced with palpation and movement. She's been here multiple times for chest Pain complaints. She had a normal EKG. 2 troponins that were negative that were 2 hours apart. She is advised to follow-up her bandage maker and family care doctor in the next 2 days or here in the ER sooner for chest pain, difficulty breathing, fevers, worsening signs or symptoms or as needed. By the evaluation outlined above emergent etiologies such as cardiac ischemia, aortic dissection, pulmonary embolism, pneumonia, pneumothorax, infections, pericarditis, myocarditis, gastrointestinal, as well as others were deemed relatively unlikely. The pt informed about the findings as listed above. All questions were answered and pleased with the treatment. Return instructions were outlined and the patient was discharged in stable condition. Referral: The patient was referred back to primary care physician for follow-up in 2 to 3 days for a recheck of the current condition. case reviewed with my Attending Medical Decision As above Impression Primary Impression: Non-cardiac chest pain Departure Information Dispostion Home / Self-Care Condition GOOD Referrals Davion Flores M.D. (PCP) Patient Instructions [facility] Additional Instructions Acetaminophen(Tylenol) may be used for fever or pain. Use 1000mg every six hours as needed. Avoid using more than 3000mg in a 24 hour period. Rest and drink plenty of fluids as tolerated. Continue current medications. Avoid strenuous activities and anything that worsens your pain. Resume normal activities once your symptoms resolve. Return to the ER immediately for worsening or persistent chest pain, abdominal pain, vomiting, fevers, chest pains, difficulty breathing, worsening of your condition, or as needed. Follow up with your primary physician in 2-3 days for a recheck of your current condition.
[2016-09-15 22:37] VITALS: BP 165/83; PULSE 65; TEMP 36.6; O2SAT 94
[2016-09-22] MEDS ORDERED: ONDA4TAB54 PO (09:45)
[2017-04-06] MEDS ORDERED: CALC-452 PO (04:14)
[2017-04-06] MEDS ORDERED: CHOL4POW5 PO (04:39)
[2017-04-06] MEDS ORDERED: ZOLP10TA6 PO (04:39)
[2017-04-06] MEDS ORDERED: NVLGI/PEN SQ (04:42)
[2017-04-06] MEDS ORDERED: IMDSR30 PO (06:39)
[2017-04-06] MEDS ORDERED: TPRSR/100 PO (08:31)
[2017-04-06] MEDS ORDERED: ACET-1257 PO (08:31)
[2017-04-06] MEDS ORDERED: CHOL2000 PO (09:45)
[2017-04-06] MEDS ORDERED: PRED-301 PO (09:45)
[2017-04-06] MEDS ORDERED: PANT40TA PO (09:45)
[2017-04-06] MEDS ORDERED: AZIT500T PO (09:45)
[2017-04-06] MEDS ORDERED: INSU1INJ33 SQ (09:50)
[2017-04-06] MEDS ORDERED: CLOP1TAB15 PO (09:50)
[2017-04-06] MEDS ORDERED: ROSU40TA PO (09:50)
[2017-04-06] MEDS ORDERED: ESCI1TAB6 PO (09:50)
[2017-04-06] MEDS ORDERED: GABA-112 PO ×2 (09:50→20:29)
== END 2016-09-15 22:37 | disposition home or self-care (01) ==
LOC: C.EDB 19:17
DX: R07.89 Other chest pain (principal); M06.9 Rheumatoid arthritis, unspecified; I25.10 Atherosclerotic heart disease of native coronary artery without angina pectoris; Z85.038 Personal history of other malignant neoplasm of large intestine; E11.9 Type 2 diabetes mellitus without complications; K27.9 Peptic ulcer, site unspecified, unspecified as acute or chronic, without hemorrhage or perforation; Z86.73 Personal history of transient ischemic attack (TIA), and cerebral infarction without residual deficits; Z95.1 Presence of aortocoronary bypass graft; Z80.9 Family history of malignant neoplasm, unspecified; Z83.3 Family history of diabetes mellitus; Z82.49 Family history of ischemic heart disease and other diseases of the circulatory system; Z79.82 Long term (current) use of aspirin; Z79.4 Long term (current) use of insulin; Z79.52 Long term (current) use of systemic steroids; Z79.01 Long term (current) use of anticoagulants; Z79.899 Other long term (current) drug therapy

== ENCOUNTER → 2016-09-19 | Outpatient (CLI) | payer OTHER ==
[~2016-09-19] MED LIST changes: +ACET-1257 PO; +AZIT500T PO; +CALC-452 PO; +CHOL4POW5 PO; +CITA20TA4 PO; +CLOP1TAB15 PO; +CZR50 PO; +ESCI1TAB6 PO; +GABA-112 PO; +IMDSR30 PO; +INSU1INJ33 SQ; +LORA-741 PO; -MECL1TAB42 PO; +NITR0.4S UT; +ONDA4TAB54 PO; +PANT40TA PO; +PRD/1 PO; +ROSU40TA PO; +SULF800T23 PO; +TPRSR/100 PO; -WARF-246 PO; +WARF6TAB PO; -ZOLE5INJ INJ; +ZOLE5INJ IV; +ZOLP10TA6 PO
== END | disposition home or self-care (01) ==
LOC: C.LAB1850 10:03
PROVIDERS: ATTEND Internal Medicine Rheumatology
DX: Z51.81 Encounter for therapeutic drug level monitoring (principal); Z79.52 Long term (current) use of systemic steroids; T38.0X1A Poisoning by glucocorticoids and synthetic analogues, accidental (unintentional), initial encounter; M35.3 Polymyalgia rheumatica; I65.29 Occlusion and stenosis of unspecified carotid artery; I25.10 Atherosclerotic heart disease of native coronary artery without angina pectoris; I34.0 Nonrheumatic mitral (valve) insufficiency; I07.1 Rheumatic tricuspid insufficiency; I77.1 Stricture of artery; I35.0 Nonrheumatic aortic (valve) stenosis; Q25.3 Supravalvular aortic stenosis; I11.9 Hypertensive heart disease without heart failure; E11.49 Type 2 diabetes mellitus with other diabetic neurological complication

== ENCOUNTER → 2016-09-28 | Day surgery (SDC) | payer OTHER ==
[2016-09-22 09:46] VITALS: Ht 167.6 cm; Wt 76.8 kg
[~2016-09-28] VITALS: Ht 167.6 cm; Wt 76.8 kg
[~2016-09-28] MED LIST changes: +LIDOCAINE HCL 2% 2 ML VIAL (20MG/ML) ONE; +MIDAZOLAM HCL 1 MG/ML 2ML VIAL ONE; +ONDANSETRON INJ 2 MG/ML 2 ML VIAL ONE; -PANT40TA2 PO; +PROPOFOL IV EMULSION 10 MG/ML 20 ML VIAL IV ONE; -ROSU40TA18 PO; +SODIUM CHLORIDE 0.9% 500ML 500 ML IV ONE
--- NOTE | 2016-09-28 12:10 | Endo History and Physical ---
History & Physical Date of Service: Sep 28, 2016. Chief Complaint: NAUSEA Referring Physician: DR EMERY CARLSON History of Present Illness 81 yo CF who presents for EGD secondary to nausea. Past Medical History Diabetes, Osteoporosis, Arthritis, Reflux, Cancer, Hypertension Past Surgical History Hx Cardiac Surgery: Yes (HEART CATH (NO STENTS), CABG-3 VESSELS, AORTIC VALVE REPLACMENT) Hx Internal Defibrillator: No Hx Pacemaker: No Hx Abdominal Surgery: Yes (TUBAL LIGATION,DAVID) Hx of Implantable Prosthesis: No Hx Post-Op Nausea and Vomiting: No Hx Cancer Surgery: Yes (COLON RESECTION) Hx Thoracic Surgery: No Hx Orthopedic: Yes (RT FOOT 1ST/2ND TOE PINNING AND I&D) Hx Urinary Tract Surgery: No Family History Polyp Social History Smoking Status: Never Smoker Hx Substance Use: No Hx Alcohol Use: No Allergies Coded Allergies: Cefadroxil (Verified Allergy, Intermediate, UNKNOWN, 09/28/16) Clindamycin (Verified Allergy, Intermediate, UNKNOWN, 09/28/16) Levofloxacin (Verified Allergy, Intermediate, UNKNOWN, 09/28/16) Metronidazole (Verified Allergy, Intermediate, UNKNOWN, 09/28/16) Amoxicillin (Verified Adverse Reaction, Mild, diarrhea, 09/28/16) Clavulanic Acid (Verified Adverse Reaction, Mild, diarrhea, 09/28/16) Metformin (Verified Adverse Reaction, Mild, diarreha, 09/28/16) Sitagliptin (Verified Adverse Reaction, Mild, diarreha, 09/28/16) Current Medications Reported Home Medications Medications Dose Route/Sig Max Daily Dose Days Date Category Dose Instructions Vitamin D3 (Cholecalciferol) 2,000 Unit Cap 1 Cap PO BID 90 09/22/16 Reported Prednisone 5 Mg Tab 1.5 Tab PO QAM 09/22/16 Reported Protonix (Pantoprazole) 40 Mg Tab 1 Tab PO QAM 09/22/16 Reported Ondansetron HCl (Ondansetron) 4 Mg Tab 1 Tab PO Q8H PRN 09/22/16 Reported Zithromax (Azithromycin) 500 Mg Tab 500 Mg PO DAILY PRN 09/22/16 Reported Coumadin (Warfarin Sodium) 6 Mg Tab 6 Mg PO DAILY 09/15/16 Reported Citalopram Hydrobromide 20 Mg Tab 20 Mg PO QPM 90 09/15/16 Reported Neurontin (Gabapentin) 100 Mg Cap 100 Mg PO BID 09/15/16 Reported Ativan (Lorazepam) 0.5 Mg Tab 0.5 Mg PO TID PRN 09/01/16 Reported Isosorbide Mononitrate ER (Isosorbide Mononitrate) 30 Mg Tabcr 30 Mg PO QAM 08/11/16 Reported Novolog Flexpen (Insulin Aspart) 100 Units/Ml Inj 14 Units SQ SUPPER 07/16/16 Reported Zolpidem Tartrate 5 Mg Tab 1-2 Tab PO HS 07/16/16 Reported Levemir (Insulin Detemir) 100 Units/Ml Inj 10 Units SQ QPM 07/16/16 Reported Cozaar (Losartan Potassium) 100 Mg Tab 50 Mg PO QAM 05/24/16 Reported Novolog Flexpen (Insulin Aspart) 100 Units/Ml Inj 12 Units SC UD 05/24/16 Reported TAKE WITH BREAKFAST & LUNCH Tylenol Extra Strength (Acetaminophen) 500 Mg Tab 1,000 Mg PO TID PRN 03/01/15 Reported Metoprolol Succinate ER (Metoprolol Succinate) 100 Mg Tabcr 100 Mg PO QPM 03/01/15 Reported Calcium 600 + D 600-200 mg-Unit (Calcium Carbonate-Cholecalcife) 1 Tab Tab 1 Tabs PO BID 10/04/14 Reported Nitrostat (Nitroglycerin) 0.4 Mg Sub 0.4 Mg UT UD PRN 01/02/14 Reported Aspirin Ec (Aspirin) 81 Mg Tab 81 Mg PO QAM 07/05/13 Reported Vital Signs Weight (Kilograms): 76.82 Height (Feet): 5 Height (Inches): 6 Date Time Temp Pulse Resp B/P Pulse Ox O2 Delivery O2 Flow Rate FiO2 09/28/16 11:32 36.5 91 18 135/60 95 Room Air Physical Exam General Appearance: WD/WN, no apparent distress Respiratory/Chest: Auscultation: breath sounds normal Cardiovascular: Heart Auscultation: RRR Abdomen: Bowel Sounds: normal Inspection & Palpation: soft, non-distended, no tenderness, guarding & rebound Assessment and Plan Assessment: 81 yo CF who presents for EGD secondary to nausea. Plan: Proceed with EGD.
--- NOTE | 2016-09-28 13:11 | GI REPORT ---
Procedure Date: 09/28/2016 12:32 PM Procedure: Upper GI endoscopy Indications: Nausea Medicines: Monitored Anesthesia Care Complications: No immediate complications. Estimated Blood Loss: Estimated blood loss: none. Procedure: Pre-Anesthesia Assessment: - Prior to the procedure, a History and Physical was performed, and patient medications and allergies were reviewed. The patient's tolerance of previous anesthesia was also reviewed. The risks and benefits of the procedure and the sedation options and risks were discussed with the patient. All questions were answered, and informed consent was obtained. Prior Anticoagulants: The patient last took aspirin 1 day and Coumadin (warfarin) 5 days prior to the procedure. ASA Grade Assessment: IV - A patient with severe systemic disease that is a constant threat to life. After reviewing the risks and benefits, the patient was deemed in satisfactory condition to undergo the procedure. After obtaining informed consent, the endoscope was passed under direct vision. Throughout the procedure, the patient's blood pressure, pulse, and oxygen saturations were monitored continuously. The scope was introduced through the mouth, and advanced to the second part of duodenum. The upper GI endoscopy was accomplished without difficulty. The patient tolerated the procedure well. Findings: The esophagus was normal. The entire examined stomach was normal. Biopsies were taken with a cold forceps for Helicobacter pylori testing. The examined duodenum was normal. Impression: - Normal esophagus. - Normal stomach. Biopsied. - Normal examined duodenum. Recommendation: - Resume previous diet. - Continue present medications. - Await pathology results. - Return to GI office as previously scheduled. Sam Brandon, 09/28/2016 1:10:21 PM This report has been signed electronically. Note Initiated On: 09/28/2016 12:32 PM I attest to the content of the Intraoperative Record and orders documented therein, exceptions below
--- NOTE | 2016-09-28 13:12 | Discharge Instructions ---
Endoscopy Patient Instructions Date / Procedure(s) Performed Sep 28, 2016. EGD Allergy Information Coded Allergies: Cefadroxil (Verified Allergy, Intermediate, UNKNOWN, 09/28/16) Clindamycin (Verified Allergy, Intermediate, UNKNOWN, 09/28/16) Levofloxacin (Verified Allergy, Intermediate, UNKNOWN, 09/28/16) Metronidazole (Verified Allergy, Intermediate, UNKNOWN, 09/28/16) Amoxicillin (Verified Adverse Reaction, Mild, diarrhea, 09/28/16) Clavulanic Acid (Verified Adverse Reaction, Mild, diarrhea, 09/28/16) Metformin (Verified Adverse Reaction, Mild, diarreha, 09/28/16) Sitagliptin (Verified Adverse Reaction, Mild, diarreha, 09/28/16) Discharge Date / Findings Sep 28, 2016. Gastric antrum biopsies Medication Instructions Stopped Medication(s): ASPIRIN 81MG LAST DOSE 09/27/16, COUMADIN 6MG 09/23/16 OK to resume all medications today as prescribed Reported Home Medications Medications Dose Route/Sig Max Daily Dose Days Date Category Dose Instructions Vitamin D3 (Cholecalciferol) 2,000 Unit Cap 1 Cap PO BID 90 09/22/16 Reported Prednisone 5 Mg Tab 1.5 Tab PO QAM 09/22/16 Reported Protonix (Pantoprazole) 40 Mg Tab 1 Tab PO QAM 09/22/16 Reported Ondansetron HCl (Ondansetron) 4 Mg Tab 1 Tab PO Q8H PRN 09/22/16 Reported Zithromax (Azithromycin) 500 Mg Tab 500 Mg PO DAILY PRN 09/22/16 Reported Coumadin (Warfarin Sodium) 6 Mg Tab 6 Mg PO DAILY 09/15/16 Reported Citalopram Hydrobromide 20 Mg Tab 20 Mg PO QPM 90 09/15/16 Reported Neurontin (Gabapentin) 100 Mg Cap 100 Mg PO BID 09/15/16 Reported Ativan (Lorazepam) 0.5 Mg Tab 0.5 Mg PO TID PRN 09/01/16 Reported Isosorbide Mononitrate ER (Isosorbide Mononitrate) 30 Mg Tabcr 30 Mg PO QAM 08/11/16 Reported Novolog Flexpen (Insulin Aspart) 100 Units/Ml Inj 14 Units SQ SUPPER 07/16/16 Reported Zolpidem Tartrate 5 Mg Tab 1-2 Tab PO HS 07/16/16 Reported Levemir (Insulin Detemir) 100 Units/Ml Inj 10 Units SQ QPM 07/16/16 Reported Cozaar (Losartan Potassium) 100 Mg Tab 50 Mg PO QAM 05/24/16 Reported Novolog Flexpen (Insulin Aspart) 100 Units/Ml Inj 12 Units SC UD 05/24/16 Reported TAKE WITH BREAKFAST & LUNCH Tylenol Extra Strength (Acetaminophen) 500 Mg Tab 1,000 Mg PO TID PRN 03/01/15 Reported Metoprolol Succinate ER (Metoprolol Succinate) 100 Mg Tabcr 100 Mg PO QPM 03/01/15 Reported Calcium 600 + D 600-200 mg-Unit (Calcium Carbonate-Cholecalcife) 1 Tab Tab 1 Tabs PO BID 10/04/14 Reported Nitrostat (Nitroglycerin) 0.4 Mg Sub 0.4 Mg UT UD PRN 01/02/14 Reported Aspirin Ec (Aspirin) 81 Mg Tab 81 Mg PO QAM 07/05/13 Reported Provider Instructions Activity Restrictions - No exercising or heavy lifting for 24 hours. - Do not drink alcohol the day of the procedure. - Do not drive a car or operate machinery until the day after the procedure. - Do not make any important decisions or sign important papers in 24 hours after the procedure. Following Day: - Return to full activity which may include returning to work/school. Diet Start your diet with liquids and light foods (jello, soup, juice, toast). Then eat your usual diet if not nauseated. Treatment For Common After Affects For mild abdominal pain, bloating, or excessive gas: - Rest - Eat lightly - Lie on right side Follow-Up Information Follow-up with DR EMERY CARLSON as scheduled Anesthesia Information What You Should Know You have had a procedure that required some medicine to reduce anxiety and discomfort. This treatment is called moderate sedation. After receiving the treatment, you may be sleepy, but you will be able to breathe on your own. The effects of the treatment may last for several hours. Follow these instructions along with Activity/Diet recommendations noted above: * Do NOT do anything where dizziness or clumsiness would be dangerous. * Rest quietly at home today, then you can be up and about tomorrow. * Have a responsible person stay with you the rest of today. * You may have had an I.V. today. If so, you may take the dressing off later today. Recommendations Call your doctor if: * Trouble breathing * Continuous vomiting for more than 24 hours * Temperature above 101 degrees * Severe abdominal pain or bloating * Pain not relieved by pain medicine ordered * There is increased drainage or redness from any incision * A large amount of rectal bleeding greater than 2-3 tablespoons. (If you had a polyp/s removed or have hemorrhoids, a small amount of blood - from the rectum is to be expected.) * You have any unanswered questions or concerns. IN THE EVENT OF A SERIOUS EMERGENCY, GO TO THE NEAREST EMERGENCY ROOM Your discharge instructions were prepared by provider Sam Brandno. Patient Instructions Signature Page Nanette Ponce Patient (or Guardian) Signature/Date: I have read and understand the instructions given to me by my caregivers. Caregiver/RN/Doctor Signature/Date: The above-named patient and/or guardian has received patient instructions on this date. + Original Patient Signature Page (only) stays with chart. Please make copy for patient.
--- NOTE | 2016-09-28 13:41 | Anesthesiology Progress Note ---
Anesthesia Post Op Note Date & Time Sep 28, 2016 at 13:40 Vital Signs Pain Intensity: 0 Vital Signs Past 12 Hours Date Time Temp Pulse Resp B/P Pulse Ox O2 Delivery O2 Flow Rate FiO2 09/28/16 13:20 69 18 107/60 96 Room Air 09/28/16 13:10 66 16 118/54 94 Room Air 09/28/16 11:32 36.5 91 18 135/60 95 Room Air Notes Mental Status: alert / awake / arousable, participated in evaluation Pt Amnestic to Procedure: Yes Nausea / Vomiting: adequately controlled Pain: adequately controlled Airway Patency, RR, SpO2: stable & adequate BP & HR: stable & adequate Hydration State: stable & adequate Anesthetic Complications: no major complications apparent
[2016-09-28 13:50] VITALS: BP 150/86; PULSE 65; O2SAT 96
== END | disposition home or self-care (01) ==
LOC: C.GI 10:17
PROVIDERS: ATTEND Internal Medicine
DX: R11.0 Nausea (principal); I10 Essential (primary) hypertension; E11.9 Type 2 diabetes mellitus without complications; K21.9 Gastro-esophageal reflux disease without esophagitis; M81.0 Age-related osteoporosis without current pathological fracture; M19.91 Primary osteoarthritis, unspecified site; Z85.038 Personal history of other malignant neoplasm of large intestine; Z95.1 Presence of aortocoronary bypass graft; Z95.2 Presence of prosthetic heart valve; Z79.82 Long term (current) use of aspirin; Z79.01 Long term (current) use of anticoagulants; Z79.4 Long term (current) use of insulin; Z79.899 Other long term (current) drug therapy; Z90.49 Acquired absence of other specified parts of digestive tract

== ENCOUNTER → 2016-10-12 | Outpatient (CLI) | payer OTHER ==
[~2016-10-12] MED LIST changes: -LIDOCAINE HCL 2% 2 ML VIAL (20MG/ML) ONE; -MIDAZOLAM HCL 1 MG/ML 2ML VIAL ONE; -ONDANSETRON INJ 2 MG/ML 2 ML VIAL ONE; -PROPOFOL IV EMULSION 10 MG/ML 20 ML VIAL IV ONE; -SODIUM CHLORIDE 0.9% 500ML 500 ML IV ONE
--- NOTE | 2016-10-12 16:13 | DIAGNOSTIC IMAGING REPORT ---
LEFT LOWER EXTREMITY VENOUS DOPPLER CLINICAL HISTORY: Left leg edema COMPARISON STUDY: No previous studies for comparison. TECHNIQUE: Sonography of the deep venous system of the left lower extremity was performed. Compression and augmentation were evaluated. FINDINGS: The left common femoral, superficial femoral and popliteal veins were compressible. Augmentation was normal. Flow was shown within the deep calf vessels. IMPRESSION: No evidence of deep venous thrombus within the left lower extremity. Electronically signed by: Emmanuel Marino M.D. 10/12/2016 4:12 PM Dictated Date/Time: 10/12/2016 4:11 PM
== END | disposition home or self-care (01) ==
LOC: C.ULTR 15:38
PROVIDERS: ATTEND Internal Medicine Geriatric Medicine
DX: R60.0 Localized edema (principal)

== ENCOUNTER → 2016-10-17 | Outpatient (CLI) | payer OTHER ==
[2016-10-17 16:31] LABS: COMPLETE YES; IG% 0.1 %; LYMPH % 19.5 %; LYMPH ABS # 1.34 K/uL (1.2-3.4); MEAN CORPUSCULAR HEMOGLOBIN 29.5 pg (25-34); MEAN PLATELET VOLUME 10.3 fL (7.4-10.4); MONO % 11.5 %; NEUT % 68.9 %; PLATELET COUNT 179 K/uL (130-400); RED BLOOD COUNT 4.21 M/uL (4.2-5.4); WHITE BLOOD COUNT 6.88 K/uL (4.8-10.8)
[2016-10-17 16:44] LABS: ALT/SGPT 33 U/L (12-78); AST/SGOT 27 U/L (15-37); BLOOD UREA NITROGEN 17 mg/dl (7-18); BUN/CREATININE RATIO 15.2 (10-20); CARBON DIOXIDE 26 mmol/L (21-32); CHLORIDE 107 mmol/L (98-107); GLUCOSE 127 mg/dl (70-99); POTASSIUM 4.3 mmol/L (3.5-5.1); SODIUM 142 mmol/L (136-145)
[2016-10-17 16:46] LABS: ALB/GLOB RATIO 1.3 (0.9-2); ALKALINE PHOSPHATASE 61 U/L (45-117)
[2016-10-17 16:57] LABS: CALCIUM 10.4 mg/dl (8.5-10.1)
== END | disposition home or self-care (01) ==
LOC: C.LAB1850 15:22
PROVIDERS: ATTEND Internal Medicine
DX: R03.0 Elevated blood-pressure reading, without diagnosis of hypertension (principal); R68.89 Other general symptoms and signs

== ENCOUNTER 2016-10-18 08:50 | Emergency (ER) | payer OTHER ==
[~2016-10-18] VITALS: Ht 167.6 cm; Wt 77.3 kg
[~2016-10-18 08:50] MED LIST changes: -ACET-1257 PO; -AZIT500T PO; -CALC-452 PO; -CHOL2000 PO; -CHOL4POW5 PO; -CLOP1TAB15 PO; -CZR50 PO; -ESCI1TAB6 PO; -GABA-112 PO; -IMDSR30 PO; -INSU1INJ33 SQ; -LORA-741 PO; -NITR0.4S UT; -PANT40TA PO; -PRD/1 PO; -PRED-301 PO; -ROSU40TA PO; -SULF800T23 PO; -TPRSR/100 PO; -ZOLE5INJ IV; -ZOLP10TA6 PO
[2016-10-18 08:52] VITALS: TEMP 36.8; Ht 167.6 cm; Wt 77.3 kg
--- NOTE | 2016-10-18 09:16 | EMERGENCY ROOM VISIT NOTE ---
History Report prepared by Ivana: Garcia Brito Under the Supervision of: Dr. Domenico Juarez M.D. First contact with patient: 08:55 Chief Complaint: HYPERTENSION Stated Complaint: HIGH BLOOD PRESSURE History of Present Illness The patient is a 81 year old female who presents to the Emergency Room with complaints of intermittent hypertension beginning this week. She was seen by Dr. Leal yesterday for high blood pressure. Her dosage of Losartan was increased yesterday. The patient states that her blood pressure peaked at 194/ 101 today. She has a history of diabetes and states that her blood sugars have been normal lately. She denies any chest pain, SOB, nausea, vomiting, abdominal pain, numbness, fevers, or chills. The patient states "I just feel kind of funny ". She is on Plavix for a cardiac valve replacement and a stroke. She notes that she had a leg ultrasound last week due to having some pain. Source of History: patient, spouse/significant other Onset: Last week Symptom Intensity: 194/101 Quality: other (hypertension) Timing: intermittent Associated Symptoms: No SOB, No abdominal pain, No chest pain, No chills, No fevers, No nausea, No numbness, No vomiting Review of Systems See HPI for pertinent positives & negatives. A total of 10 systems reviewed and were otherwise negative. Past Medical & Surgical Medical Problems: (1) CAD (coronary artery disease) (2) Carcinoma of colon (3) Colectomy (4) Coronary artery disease involving [place] coronary artery (5) Diabetes (6) Dizziness (7) Familial combined hyperlipidemia (8) Peptic ulcer (9) Rheumatoid arthritis (10) Stable angina (11) Stroke (12) Vertigo Surgical Problems: (1) History of cholecystectomy (2) History of colectomy (3) Removal of pin, plate, lulu, or screw (4) S/P CABG x 3 Old medical records were reviewed. Nurse's notes were reviewed and I agree with. Family History Cancer Diabetes mellitus FHx: aneurysm Heart disease Hypertension Social History Smoking Status: Never Smoker Alcohol Use: none Drug Use: none Marital Status: Housing Status: lives with significant other Occupation Status: retired Current/Historical Medications Scheduled Calcium Carbonate-Cholecalcife (Calcium 600 + D 600-200 mg-Unit), 1 TABS PO BID Cholecalciferol (Vitamin D3), 1 CAP PO BID Clopidogrel (Plavix), 75 MG PO DAILY Escitalopram Oxalate (Lexapro), 5 MG PO DAILY Gabapentin (Neurontin), 200 MG PO QAM Gabapentin (Neurontin), 100 MG PO QPM Insulin Degludec (Tresiba Flextouch), 20 UNITS SQ QPM Isosorbide Mononitrate (Isosorbide Mononitrate ER), 30 MG PO QAM Losartan Potassium (Cozaar), 50 MG PO QAM Metoprolol Succinate (Metoprolol Succinate ER), 100 MG PO QPM Pantoprazole (Protonix), 1 TAB PO QAM Prednisone (Prednisone), 5 MG PO QAM Prednisone (Prednisone), 1 MG PO DAILY Rosuvastatin Calcium (Crestor), 40 MG PO DAILY Zoledronic Acid (Reclast), 5 MG IV YEARLY Zolpidem Tartrate (Zolpidem Tartrate), 1-2 TAB PO HS Scheduled PRN Acetaminophen (Tylenol Extra Strength), 1,000 MG PO TID PRN for Pain Azithromycin (Zithromax), 500 MG PO DAILY PRN for BEFORE DENTAL PROCEDURES Lorazepam (Ativan), 0.5 MG PO TID PRN for Anxiety Nitroglycerin (Nitrostat), 0.4 MG UT UD PRN for Chest Pain Ondansetron (Ondansetron HCl), 4 MG PO q4-q6 PRN for Nausea or Vomiting Allergies Coded Allergies: Cefadroxil (Verified Allergy, Intermediate, UNKNOWN, 10/18/16) Clindamycin (Verified Allergy, Intermediate, UNKNOWN, 10/18/16) Levofloxacin (Verified Allergy, Intermediate, UNKNOWN, 10/18/16) Metronidazole (Verified Allergy, Intermediate, UNKNOWN, 10/18/16) Amoxicillin (Verified Adverse Reaction, Mild, diarrhea, 10/18/16) Clavulanic Acid (Verified Adverse Reaction, Mild, diarrhea, 10/18/16) Metformin (Verified Adverse Reaction, Mild, diarreha, 10/18/16) Sitagliptin (Verified Adverse Reaction, Mild, diarreha, 10/18/16) Physical Exam Vital Signs Date Time Temp Pulse Resp B/P Pulse Ox O2 Delivery O2 Flow Rate FiO2 10/18/16 11:16 63 16 157/85 97 10/18/16 10:39 63 16 174/83 95 Room Air 10/18/16 08:52 36.8 74 18 125/78 96 Room Air Physical Exam General: Well developed, well nourished, non-ill appearing, mildly anxious older female in no acute distress, breathing comfortably on room air. Normal speech HEENT: Normal cephalic atraumatic. Pupils are equal round and reactive to light. Extraocular movements are intact. Oropharynx is pink with moist mucous membranes. No swelling of the mouth lips or tongue. Neck: Supple with a midline trachea. No meningeal signs or stiffness, no JVD or bruits. No Stridor. Chest: Clear to auscultation bilaterally. No wheezes or rhonchi. No increased work of breathing. Heart: regular rate and rhythm. Abdomen: Soft nontender, nondistended without rebound guarding or rigidity. Extremities: No cyanosis clubbing or edema. No calf tenderness or assymetry Spine/Back. Non tender to palpation. No CVA tenderness Skin: Good turgor without rashes. Neurologic exam: Cranial nerves two through 12 are intact. Motor and sensation are intact and symmetrical throughout. No tremor. Finger to nose intact. Medical Decision & Procedures ER Provider Diagnostic Interpretation: Radiology results as stated below per my review and radiologist interpretation: HEAD CT NONCONTRAST Findings: The paranasal sinuses and mastoid air cells are clear. The calvarium and skull base are intact. Mild atrophy and microvascular ischemic changes are again noted. There is no mass, hematoma, midline shift, acute infarct. There is an old small left MCA territory infarct again noted. Impression: No significant change compared to the prior study. No acute intracranial abnormality. Electronically signed by: Marcus Jacob M.D. CHEST ONE VIEW PORTABLE FINDINGS: Mild stable cardiomegaly. Prior median sternotomy. Diaphragms smooth. Lungs are clear. IMPRESSION: Negative chest. Electronically signed by: Ellis Nichols M.D. Laboratory Results 10/18/16 09:18 Red Blood Count 4.25, Mean Corpuscular Volume 94.8, Mean Corpuscular Hemoglobin 30.1, Mean Corpuscular Hemoglobin Concent 31.8, Mean Platelet Volume 9.9, Neutrophils (%) (Auto) 71.0, Lymphocytes (%) (Auto) 19.5, Monocytes (%) (Auto) 8.4, Eosinophils (%) (Auto) 0.7, Basophils (%) (Auto) 0.2, Neutrophils # (Auto) 4.34, Lymphocytes # (Auto) 1.19, Monocytes # (Auto) 0.51, Eosinophils # (Auto) 0.04, Basophils # (Auto) 0.01 10/18/16 09:18 Test 10/18/16 09:18 10/18/16 09:21 White Blood Count 6.10 K/uL (4.8-10.8) Red Blood Count 4.25 M/uL (4.2-5.4) Hemoglobin 12.8 g/dL (12.0-16.0) Hematocrit 40.3 % (37-47) Mean Corpuscular Volume 94.8 fL (80-100) Mean Corpuscular Hemoglobin 30.1 pg (25-34) Mean Corpuscular Hemoglobin Concent 31.8 g/dl (32-36) Platelet Count 157 K/uL (130-400) Mean Platelet Volume 9.9 fL (7.4-10.4) Neutrophils (%) (Auto) 71.0 % Lymphocytes (%) (Auto) 19.5 % Monocytes (%) (Auto) 8.4 % Eosinophils (%) (Auto) 0.7 % Basophils (%) (Auto) 0.2 % Neutrophils # (Auto) 4.34 K/uL (1.4-6.5) Lymphocytes # (Auto) 1.19 K/uL (1.2-3.4) Monocytes # (Auto) 0.51 K/uL (0.11-0.59) Eosinophils # (Auto) 0.04 K/uL (0-0.5) Basophils # (Auto) 0.01 K/uL (0-0.2) RDW Standard Deviation 53.3 fL (36.4-46.3) RDW Coefficient of Variation 15.5 % (11.5-14.5) Immature Granulocyte % (Auto) 0.2 % Immature Granulocyte # (Auto) 0.01 K/uL (0.00-0.02) Prothrombin Time 11.3 SECONDS (9.0-12.0) Prothromb Time International Ratio 1.1 (0.9-1.1) Activated Partial Thromboplast Time 26.4 SECONDS (21.0-31.0) Partial Thromboplastin Ratio 1.0 Anion Gap 8.0 mmol/L (3-11) Est Creatinine Clear Calc Drug Dose 47.1 ml/min Estimated GFR () 61.6 Estimated GFR (Non- 53.2 BUN/Creatinine Ratio 17.2 (10-20) Calcium Level 9.6 mg/dl (8.5-10.1) Total Bilirubin 0.7 mg/dl (0.2-1) Direct Bilirubin 0.2 mg/dl (0-0.2) Aspartate Amino Transf (AST/SGOT) 23 U/L (15-37) Alanine Aminotransferase (ALT/SGPT) 30 U/L (12-78) Alkaline Phosphatase 61 U/L (45-117) Total Protein 7.1 gm/dl (6.4-8.2) Albumin 3.8 gm/dl (3.4-5.0) Lipase 140 U/L (73-393) Thyroid Stimulating Hormone (TSH) 1.530 uIu/ml (0.300-4.500) Bedside Troponin I 0.010 ng/ml (0-0.045) Laboratory studies as stated above per my review. ECG Indication: other (hypertension) Rate (beats per minute): 69 Rhythm: normal sinus Findings: no acute ischemic change, other (non-specific T wave abnormality) Comparison ECG Date: September 16, 2015 Change: no significant change ED Course 0903: Past medical records reviewed. The patient was evaluated in room B12B, and a complete history and physical examination were performed. 1048: Upon reevaluation, the patient is resting comfortably. I discussed the results and treatment plan with her. She verbalized agreement of the treatment plan. The patient was discharged home. Medical Decision Differentials include, but are not limited to; hypertension, CVA, arrhythmia, anemia, infection, and diabetes complication. Medication reconciliation : I have personally reviewed the patient's medications. Hypertensive screening : Patient's blood pressure is mildly elevated. she is currently receiving treatment from her doctor who I recommend that she follow up with her further recheck This patient comes in as described above. She has a vague feeling of not feeling well. She feels mildly diffusely weak. She has a normal neurologic exam. She comes in for her blood pressure was elevated however here it is 120s over 80s and not elevated they just increased her blood pressure medication yesterday and at this point's is likely too early to show much of an effect I believe. She's had no fever. No chest pain or shortness of breath. IV access established gently hydrated with IV normal saline. EKG was obtained as well as chest x-ray, head CT, and multiple blood testing. I did review her old records she had ultrasound of her leg done within the last week and showed no evidence of DVT. I talked her at length as well. He is at the bedside. There is nothing to suggest acute coronary syndrome or hypertensive end organ damage. There is no acute electrode or metabolic abnormalities. Is nothing to suggest infection. There is nothing to suggest stroke or central neurologic process. She feels good and would like to go home I think she does have an anxiety component as well she seems very focused on her blood pressure. I will have her check her blood pressure when she is relaxed and follow-up with her doctor next 1-2 days and have her blood pressure rechecked. Impression Primary Impression: Weakness Additional Impression: Hypertension Scribe Attestation The scribe's documentation has been prepared under my direction and personally reviewed by me in its entirety. I confirm that the note above accurately reflects all work, treatment, procedures, and medical decision making performed by me. Departure Information Dispostion Home / Self-Care Referrals Davion Flores M.D. (PCP) Forms HOME CARE DOCUMENTATION FORM, IMPORTANT VISIT INFORMATION, WORK / SCHOOL INSTRUCTIONS Patient Instructions My [facility] Additional Instructions Rest. Drink plenty of fluids. Taking her blood pressure medication regularly and record her blood pressure Return if: Chest pain, shortness of breath, numbness weakness, worsening symptoms, any new problems or concerns. Follow-up with your doctor in 2-3 days for blood pressure recheck Problem Qualifiers
[2016-10-18 09:37] LABS: BASO % 0.2 %; BASO ABS # 0.01 K/uL (0-0.2); COMPLETE YES; EOS % 0.7 %; HEMATOCRIT 40.3 % (37-47); IG% 0.2 %; LYMPH % 19.5 %; LYMPH ABS # 1.19 K/uL (1.2-3.4); MEAN CELL VOLUME 94.8 fL (80-100); MEAN CORPUSCULAR HEMOGLOBIN 30.1 pg (25-34); MEAN CORPUSCULAR HGB CONC 31.8 g/dl (32-36); MEAN PLATELET VOLUME 9.9 fL (7.4-10.4); MONO % 8.4 %; PLATELET COUNT 157 K/uL (130-400); RED BLOOD COUNT 4.25 M/uL (4.2-5.4)
--- NOTE | 2016-10-18 09:41 | DIAGNOSTIC IMAGING REPORT ---
HEAD CT NONCONTRAST CT DOSE: 638.56 mGycm HISTORY: weakness TECHNIQUE: Multiaxial CT images of the head were performed without the use of intravenous contrast. Automated exposure control was utilized for this study. Comparison: Head CT 07/22/2016. Findings: The paranasal sinuses and mastoid air cells are clear. The calvarium and skull base are intact. Mild atrophy and microvascular ischemic changes are again noted. There is no mass, hematoma, midline shift, acute infarct. There is an old small left MCA territory infarct again noted. Impression: No significant change compared to the prior study. No acute intracranial abnormality. Electronically signed by: Marcus Jacob M.D. 10/18/2016 9:40 AM Dictated Date/Time: 10/18/2016 9:36 AM
[2016-10-18 09:46] LABS: INR 1.1 (0.9-1.1); PROTHROMBIN TIME (PATIENT) 11.3 SECONDS (9.0-12.0)
[2016-10-18] MEDS ORDERED: ZOLE5INJ IV (09:50)
[2016-10-18] MEDS ORDERED: PRD/1 PO (09:50)
[2016-10-18 10:01] LABS: BUN/CREATININE RATIO 17.2 (10-20); CALCIUM 9.6 mg/dl (8.5-10.1); POTASSIUM 3.8 mmol/L (3.5-5.1)
[2016-10-18 10:13] LABS: THYROID STIMULATING HORMONE 1.53 uIu/ml (0.300-4.500)
--- NOTE | 2016-10-18 10:13 | DIAGNOSTIC IMAGING REPORT ---
CHEST ONE VIEW PORTABLE CLINICAL HISTORY: CHEST PAIN dyspnea COMPARISON STUDY: 09/15/2016 FINDINGS: Mild stable cardiomegaly. Prior median sternotomy. Diaphragms smooth. Lungs are clear. IMPRESSION: Negative chest. Electronically signed by: Ellis Nichols M.D. 10/18/2016 10:12 AM Dictated Date/Time: 10/18/2016 10:12 AM
[2016-10-18 11:16] VITALS: BP 157/85; PULSE 63; O2SAT 97
[2017-04-06] MEDS ORDERED: CALC-452 PO (04:14)
[2017-04-06] MEDS ORDERED: CHOL4POW5 PO (04:39)
[2017-04-06] MEDS ORDERED: ZOLP10TA6 PO (04:39)
[2017-04-06] MEDS ORDERED: NVLGI/PEN SQ (04:42)
[2017-04-06] MEDS ORDERED: IMDSR30 PO (06:39)
[2017-04-06] MEDS ORDERED: TPRSR/100 PO (08:31)
[2017-04-06] MEDS ORDERED: ACET-1257 PO (08:31)
[2017-04-06] MEDS ORDERED: PRED-301 PO (09:45)
[2017-04-06] MEDS ORDERED: PANT40TA PO (09:45)
[2017-04-06] MEDS ORDERED: AZIT500T PO (09:45)
[2017-04-06] MEDS ORDERED: CHOL2000 PO (09:45)
[2017-04-06] MEDS ORDERED: INSU1INJ33 SQ (09:50)
[2017-04-06] MEDS ORDERED: ROSU40TA PO (09:50)
[2017-04-06] MEDS ORDERED: ESCI1TAB6 PO (09:50)
[2017-04-06] MEDS ORDERED: GABA-112 PO ×2 (09:50→20:29)
[2017-04-06] MEDS ORDERED: CLOP1TAB15 PO (09:50)
== END 2016-10-18 11:17 | disposition home or self-care (01) ==
LOC: C.EDB 08:51
DX: I10 Essential (primary) hypertension (principal); R07.9 Chest pain, unspecified; R06.00 Dyspnea, unspecified; R53.1 Weakness; E11.9 Type 2 diabetes mellitus without complications; Z79.4 Long term (current) use of insulin; Z95.2 Presence of prosthetic heart valve; Z85.038 Personal history of other malignant neoplasm of large intestine; I25.10 Atherosclerotic heart disease of native coronary artery without angina pectoris; Z79.899 Other long term (current) drug therapy; M06.9 Rheumatoid arthritis, unspecified

== ENCOUNTER → 2016-11-28 | Outpatient (CLI) | payer OTHER ==
[~2016-11-28] MED LIST changes: +ACET-1257 PO; -ASPI81TA28 PO; +AZIT500T PO; +CALC-452 PO; +CHOL2000 PO; +CHOL4POW5 PO; -CITA20TA4 PO; +CLOP1TAB15 PO; +ESCI1TAB6 PO; +GABA-112 PO; +IMDSR30 PO; +INSU1INJ33 SQ; +LORA-741 PO; -LVMI SQ; +NITR0.4S UT; -NVLGI/PEN SC; +PANT40TA PO; +PRD/1 PO; +PRED-301 PO; +ROSU40TA PO; +TPRSR/100 PO; -WARF6TAB PO; +ZOLE5INJ IV; +ZOLP10TA6 PO
== END | disposition home or self-care (01) ==
LOC: C.LAB1850 09:55
PROVIDERS: ATTEND Internal Medicine Rheumatology
DX: M35.3 Polymyalgia rheumatica (principal)

== ENCOUNTER → 2016-12-09 | Outpatient (CLI) | payer OTHER | END | disposition home or self-care (01) | LOC: C.RDSM 14:14 | PROVIDERS: ATTEND Orthopaedic Surgery Sports Medicine | DX: R52 Pain, unspecified (principal) ==

== ENCOUNTER → 2017-01-02 | Outpatient (CLI) | payer OTHER ==
[2017-01-02 09:47] LABS: ESTIMATED AVERAGE GLUCOSE 160 mg/dl; HA1C FLAG Normal (Normal)
== END | disposition home or self-care (01) ==
LOC: C.LAB1850 07:15
PROVIDERS: ATTEND Nurse Practitioner Family
DX: E11.40 Type 2 diabetes mellitus with diabetic neuropathy, unspecified (principal)

== ENCOUNTER → 2017-01-12 | Outpatient (CLI) | payer OTHER ==
--- NOTE | 2017-01-13 13:21 | MAMMOGRAPHY REPORT ---
BILATERAL DIGITAL SCREENING MAMMOGRAM WITH CAD: 01/12/2017 CLINICAL HISTORY: Routine screening. Patient has no complaints. TECHNIQUE: Current study was also evaluated with a Computer Aided Detection (CAD) system. Bilateral CC and MLO views were obtained. COMPARISON: Comparison is made to exams dated: 11/26/2015 ultrasound, 11/26/2015 mammogram, 08/26/2015 ultrasound, 08/26/2015 mammogram, 08/19/2015 mammogram, and 08/01/2014 mammogram - [facility]. BREAST COMPOSITION: The tissue of both breasts is almost entirely fatty. FINDINGS: There is a newly visualized small cluster of calcifications within the left upper inner qu adrant middle depth, for which spot magnification views are recommended for further evaluation. Juancarlos tionally, there are newly visualized faint calcifications seen within the left upper inner quadrant a nteriorly, which are in association with fat density masses and likely represent evolving fat necrosi s, however, spot magnification views are recommended for further evaluation. The remainder of both breasts are stable compared to prior exams, without suspicious masses, calcific ations, or areas of architectural distortion noted. IMPRESSION: ACR BI-RADS CATEGORY 0: INCOMPLETE EVALUATION: NEED ADDITIONAL IMAGING EVALUATION Left breast calcifications, for which additional imaging evaluation is recommended. The patient will be called to schedule an appointment. Approximately 10% of breast cancers are not detected with mammography. A negative mammographic report should not delay biopsy if a clinically suggestive mass is present. uSe Eastman M.D. /:01/12/2017 16:37:10 Machine Operator Helper: Corina SNIDERR, M, [facility] letter sent: Addl Imaging 0 BI-RADS Code: ACR BI-RADS Category 0: Incomplete Evaluation: Need Additional Imaging Evaluation
== END | disposition home or self-care (01) ==
LOC: C.MAMM 13:19
PROVIDERS: ATTEND Internal Medicine Geriatric Medicine
DX: Z12.31 Encounter for screening mammogram for malignant neoplasm of breast (principal); R92.1 Mammographic calcification found on diagnostic imaging of breast

== ENCOUNTER → 2017-01-23 | Outpatient (CLI) | payer OTHER ==
--- NOTE | 2017-01-23 14:32 | MAMMOGRAPHY REPORT ---
UNILATERAL LEFT DIGITAL DIAGNOSTIC MAMMOGRAM: 01/23/2017 CLINICAL HISTORY: 81-year-old woman called back from screening mammography for new microcalcification s in the upper inner quadrant of the left breast. Patient has a history of trauma to the left breast 1 year ago. TECHNIQUE: Spot magnification left CC and ML views were obtained. COMPARISON: Comparison is made to exams dated: 01/12/2017 mammogram, 11/26/2015 ultrasound, 11/26/2015 m ammogram, 08/26/2015 mammogram, 08/19/2015 mammogram, and 08/01/2014 mammogram - [facility]. BREAST COMPOSITION: There are scattered areas of fibroglandular density in the left breast. FINDINGS: There is a small cluster of 3-4 monomorphic round microcalcifications in the upper inner a pproximate 11:00 middle one third of the left breast, new comparing to prior mammograms. There are o ther clustered amorphous microcalcifications associated with faint lucent centered masses measuring a pproximate 10 mm in the upper inner anterior left breast. Both of these newly visualized clusters of calcifications are in an area of previous trauma and focal asymmetry with associated benign fat necr osis that is less dense and there is less focal asymmetry comparing to last years mammogram. The tresa cifications are most likely related to evolving fat necrosis, however, a short interval follow-up lef t diagnostic mammogram including spot magnification views is recommended to ensure stability and/or c oarsening in 6 months. IMPRESSION: ACR-BI-RADS CATEGORY 3: PROBABLY BENIGN The new clustered calcifications, some of which appear to be associated with oil cysts in the 11:00 l eft breast, are most likely related to evolving fat necrosis, as the patient has a history of prior t rauma in the upper inner quadrant of the left breast. However, a short interval follow-up left diagn ostic mammogram including spot magnification views is recommended to ensure stability in 6 months. These results and recommendations were discussed with the patient at the time of the exam. She tenta tively scheduled a follow-up appointment prior to leaving our department. Approximately 10% of breast cancers are not detected with mammography. A negative mammographic report should not delay biopsy if a clinically suggestive mass is present. Ginny Pinedo M.D. ay/:01/23/2017 12:02:23 Executive Vice President And Chief Operating Officer: Asya Jimenez RT(R)(M), [facility] letter sent: Follow Up Recommended 3 BI-RADS Code: ACR-BI-RADS Category 3: Probably Benign
== END | disposition home or self-care (01) ==
LOC: C.MAMM 10:44
PROVIDERS: ATTEND Internal Medicine Geriatric Medicine
DX: R92.1 Mammographic calcification found on diagnostic imaging of breast (principal)

== ENCOUNTER → 2017-01-30 | Outpatient (CLI) | payer OTHER | END | disposition home or self-care (01) | LOC: C.LAB1850 09:49 | PROVIDERS: ATTEND Internal Medicine Rheumatology | DX: M35.3 Polymyalgia rheumatica (principal) ==

== ENCOUNTER 2017-01-31 04:02 | Emergency (ER) | payer OTHER ==
[~2017-01-31] VITALS: Ht 167.6 cm; Wt 79.1 kg
[~2017-01-31 04:02] MED LIST changes: -CHOL4POW5 PO; -NVLGI/PEN SQ; -ZOLP10TA6 PO
[2017-01-31 04:23] VITALS: TEMP 36.5; O2SAT 96
[2017-01-31] MEDS ORDERED: ASPIRIN 324 MG CHEW PO STA (04:25)
[2017-01-31] MEDS ORDERED: NITROGLYCERIN 0.4 MG SL PER TAB CHARGE SL PRN (04:30)
--- NOTE | 2017-01-31 04:30 | EMERGENCY ROOM VISIT NOTE ---
History Report prepared by Ivana: Tashi He Under the Supervision of: Dr. Ancelmo Cárdenas M.D. First contact with patient: 04:22 Chief Complaint: CHEST PAIN Stated Complaint: CHEST PAIN History of Present Illness The patient is a 81 year old female who presents to the Emergency Room with complaints of bilateral chest pain that began yesterday afternoon. She rates her pain 7/10 in severity. This same pain happened a couple of months ago, but she notes that it is worse today. She denies any nausea, vomiting, or loss of consciousness. She has a history of a heart attack, 3-way bypass, cardiac stent , and a stroke. She took 2 Tylenol prior to arrival with no relief. She is currently on Plavix. Source of History: patient Onset: yesterday afternoon Position: chest (diffuse) Symptom Intensity: 7/10 Quality: ache Timing: constant Associated Symptoms: No LOC, No nausea, No vomiting Review of Systems See HPI for pertinent positives & negatives. A total of 10 systems reviewed and were otherwise negative. Past Medical & Surgical Medical Problems: (1) CAD (coronary artery disease) (2) Carcinoma of colon (3) Colectomy (4) Coronary artery disease involving quechan coronary artery (5) Diabetes (6) Dizziness (7) Familial combined hyperlipidemia (8) Peptic ulcer (9) Rheumatoid arthritis (10) Stable angina (11) Stroke (12) Vertigo Surgical Problems: (1) History of cholecystectomy (2) History of colectomy (3) Removal of pin, plate, lulu, or screw (4) S/P CABG x 3 Family History Cancer Diabetes mellitus FHx: aneurysm Heart disease Hypertension Social History Smoking Status: Never Smoker Alcohol Use: none Drug Use: none Marital Status: Housing Status: lives with significant other Occupation Status: retired Current/Historical Medications Scheduled Calcium Carbonate-Cholecalcife (Calcium 600 + D 600-200 mg-Unit), 1 TABS PO BID Cholecalciferol (Vitamin D3), 2,000 UNIT PO BID Cholestyramine Light (Prevalite), 4 GM PO BID Clopidogrel (Plavix), 75 MG PO DAILY Escitalopram Oxalate (Lexapro), 5 MG PO DAILY Gabapentin (Neurontin), 200 MG PO QAM Gabapentin (Neurontin), 100 MG PO QPM Insulin Aspart (Novolog Flexpen), SQ UD Insulin Degludec (Tresiba Flextouch), 20 UNITS SQ QPM Isosorbide Mononitrate (Isosorbide Mononitrate ER), 30 MG PO QAM Losartan Potassium (Cozaar), 50 MG PO QAM Metoprolol Succinate (Metoprolol Succinate ER), 100 MG PO QPM Pantoprazole (Protonix), 40 MG PO QAM Prednisone (Prednisone), 5 MG PO QAM Rosuvastatin Calcium (Crestor), 40 MG PO DAILY Zoledronic Acid (Reclast), 5 MG IV YEARLY Scheduled PRN Acetaminophen (Tylenol Extra Strength), 1,000 MG PO TID PRN for Pain Azithromycin (Zithromax), 500 MG PO DAILY PRN for BEFORE DENTAL PROCEDURES Lorazepam (Ativan), 0.5 MG PO TID PRN for Anxiety Nitroglycerin (Nitrostat), 0.4 MG UT UD PRN for Chest Pain Zolpidem Tartrate (Zolpidem Tartrate), 10 MG PO HS PRN for Sleep Allergies Coded Allergies: Cefadroxil (Verified Allergy, Intermediate, UNKNOWN, 10/18/16) Clindamycin (Verified Allergy, Intermediate, UNKNOWN, 01/31/17) Levofloxacin (Verified Allergy, Intermediate, UNKNOWN, 10/18/16) Metronidazole (Verified Allergy, Intermediate, UNKNOWN, 01/31/17) Amoxicillin (Verified Adverse Reaction, Mild, diarrhea, 01/31/17) Clavulanic Acid (Verified Adverse Reaction, Mild, diarrhea, 10/18/16) Metformin (Verified Adverse Reaction, Mild, diarreha, 01/31/17) Sitagliptin (Verified Adverse Reaction, Mild, diarreha, 01/31/17) Physical Exam Vital Signs Date Time Temp Pulse Resp B/P (MAP) Pulse Ox O2 Delivery O2 Flow Rate FiO2 01/31/17 06:00 63 17 156/72 97 Room Air 01/31/17 05:31 175/82 01/31/17 05:30 66 14 01/31/17 05:00 63 15 146/71 01/31/17 04:39 70 01/31/17 04:32 132/81 01/31/17 04:32 88 18 132/81 01/31/17 04:30 78 17 01/31/17 04:23 73 16 132/81 01/31/17 04:23 96 Room Air 01/31/17 04:23 36.5 82 18 191/81 93 Room Air 01/31/17 04:21 98 Room Air Physical Exam GENERAL: Patient is severely upset appearing and crying. HEENT: No acute trauma, normocephalic atraumatic, mucous membranes moist, no nasal congestion, no scleral icterus. NECK: No stridor, no adenopathy, no meningismus, trachea is midline. LUNGS: No dyspnea. Clear to auscultation and equal bilaterally. No wheeze, no rhonchi. HEART: Regular rate and rhythm. No murmurs, rubs, gallops appreciated. ABDOMEN: Soft, nontender, bowel sounds positive, no masses appreciated, no peritonitis. BACK: No midline tenderness, no CVA tenderness EXTREMITIES: Normal motion all extremities, no cyanosis, no edema. NEUROLOGIC: Alert and oriented, no acute motor or sensory deficits, no focal weakness, cranial nerves grossly intact. SKIN: No rash, no jaundice, no diaphoresis. Medical Decision & Procedures Laboratory Results 01/31/17 04:25 Red Blood Count 4.28, Mean Corpuscular Volume 92.5, Mean Corpuscular Hemoglobin 29.7, Mean Corpuscular Hemoglobin Concent 32.1, Mean Platelet Volume 9.4, Neutrophils (%) (Auto) 54.2, Lymphocytes (%) (Auto) 30.1, Monocytes (%) (Auto) 14.6, Eosinophils (%) (Auto) 0.9, Basophils (%) (Auto) 0.0, Neutrophils # (Auto ) 3.50, Lymphocytes # (Auto) 1.94, Monocytes # (Auto) 0.94, Eosinophils # (Auto ) 0.06, Basophils # (Auto) 0.00 01/31/17 04:25 Test 01/31/17 04:25 White Blood Count 6.45 K/uL (4.8-10.8) Red Blood Count 4.28 M/uL (4.2-5.4) Hemoglobin 12.7 g/dL (12.0-16.0) Hematocrit 39.6 % (37-47) Mean Corpuscular Volume 92.5 fL (80-100) Mean Corpuscular Hemoglobin 29.7 pg (25-34) Mean Corpuscular Hemoglobin Concent 32.1 g/dl (32-36) Platelet Count 148 K/uL (130-400) Mean Platelet Volume 9.4 fL (7.4-10.4) Neutrophils (%) (Auto) 54.2 % Lymphocytes (%) (Auto) 30.1 % Monocytes (%) (Auto) 14.6 % Eosinophils (%) (Auto) 0.9 % Basophils (%) (Auto) 0.0 % Neutrophils # (Auto) 3.50 K/uL (1.4-6.5) Lymphocytes # (Auto) 1.94 K/uL (1.2-3.4) Monocytes # (Auto) 0.94 K/uL (0.11-0.59) Eosinophils # (Auto) 0.06 K/uL (0-0.5) Basophils # (Auto) 0.00 K/uL (0-0.2) RDW Standard Deviation 51.8 fL (36.4-46.3) RDW Coefficient of Variation 15.3 % (11.5-14.5) Immature Granulocyte % (Auto) 0.2 % Immature Granulocyte # (Auto) 0.01 K/uL (0.00-0.02) Anion Gap 2.0 mmol/L (3-11) Estimated GFR () 63.1 Estimated GFR (Non- 54.5 BUN/Creatinine Ratio 16.2 (10-20) Calcium Level 9.5 mg/dl (8.5-10.1) Total Creatine Kinase 38 U/L (26-192) Creatine Kinase MB 0.7 ng/ml (0.5-3.6) Creatine Kinase MB Ratio 1.8 (0-3.0) Troponin I < 0.015 ng/ml (0-0.045) Medications Administered Medications (Trade) Dose Ordered Sig/Sincere Route Start Time Stop Time Status Last Admin Dose Admin Aspirin (Aspirin Chew) 324 mg NOW STAT PO 01/31/17 04:25 01/31/17 04:26 DC 01/31/17 04:28 324 MG Nitroglycerin (Nitrostat Tab) 0.4 mg Q5M PRN SL 01/31/17 04:30 03/02/17 04:29 01/31/17 04:28 0.4 MG Ondansetron HCl (Zofran Inj) 4 mg NOW STAT IV 01/31/17 04:42 01/31/17 04:43 DC 01/31/17 04:45 4 MG ECG Indication: chest pain Rate (beats per minute): 73 Rhythm: sinus rhythm Findings: nonspecific-ST abn, PAC, no acute ischemic change Comparison ECG Date: 18 Oct 2016 Change: no significant change ED Course 0422: The patient was evaluated in room B10. A complete history and physical exam was performed. 0425: Ordered Aspirin 324 mg PO 0430: Ordered Nitroglycerin 0.4 mg SL 0442: Ordered Zofran Inj 4 mg IV 0512: The patient is feeling much better at this time. 0515: I spoke with Dr. Miles at this time. The [facility] hospitalist will be notified about the patient for further management and care. Medical Decision Differential: Cardiac Ischemia (STEMI, NSTEMI, Unstable Angina, etc), Aortic Dissection, Arrhythmia, Pulmonary Embolism, Pneumonia, Pneumothorax, MSK, Infectious, Pericarditis/Myocarditis, Esophageal Rupture, Gastrointestinal, amongst other pathologies entertained. 81 yr old female with substernal chest pain throughout evening/night after eating salad yesterday. CABG within the year with multiple ED visits for evaluation of chest pain. Anxiety clearly large component of this. Better with ASA/SLNTG. She stable and in no distress after this. BP improved as well. EKG similar to previous. Trop negative x 2. Discussed with hospitalist who evaluated her and agree with discharge. She has PCP appointment in a few hours which I advised her to keep. Reviewed symptoms requiring return. Medication Reconcilliation Current Medication List: was personally reviewed by me Blood Pressure Screening Patient's blood pressure: Elevated blood pressure Blood pressure disposition: Elevated BP felt to be situational Consults Time Called: 0510 Consulting Physician: Dr. Miles - Working with [place] [facility] [place] Returned Call: 0515 We spoke about the patient's case. The [place] hospitalist has been notified about the patient's inpatient management. Impression Primary Impression: Substernal chest pain Scribe Attestation The scribe's documentation has been prepared under my direction and personally reviewed by me in its entirety. I confirm that the note above accurately reflects all work, treatment, procedures, and medical decision making performed by me. Departure Information Dispostion Being Evaluated By Hospitalist Referrals Davion Flores M.D. (PCP) Patient Instructions ED Chest Pain Atypical Unkn Cause, [facility]
[2017-01-31 04:37] LABS: COMPLETE YES; EOS % 0.9 %; HEMATOCRIT 39.6 % (37-47); IG% 0.2 %; LYMPH % 30.1 %; LYMPH ABS # 1.94 K/uL (1.2-3.4); MEAN CELL VOLUME 92.5 fL (80-100); MEAN CORPUSCULAR HEMOGLOBIN 29.7 pg (25-34); MEAN CORPUSCULAR HGB CONC 32.1 g/dl (32-36); MEAN PLATELET VOLUME 9.4 fL (7.4-10.4); MONO % 14.6 %; NEUT % 54.2 %; PLATELET COUNT 148 K/uL (130-400); RED BLOOD COUNT 4.28 M/uL (4.2-5.4); WHITE BLOOD COUNT 6.45 K/uL (4.8-10.8)
[2017-01-31] MEDS ORDERED: CHOL4POW5 PO (04:39)
[2017-01-31] MEDS ORDERED: ZOLP10TA6 PO (04:39)
[2017-01-31] MEDS ORDERED: ONDANSETRON INJ 2 MG/ML 2 ML VIAL IV STA (04:42)
[2017-01-31] MEDS ORDERED: NVLGI/PEN SQ (04:42)
[2017-01-31 04:59] LABS: BLOOD UREA NITROGEN 16 mg/dl (7-18); BUN/CREATININE RATIO 16.2 (10-20); CALCIUM 9.5 mg/dl (8.5-10.1); CARBON DIOXIDE 30 mmol/L (21-32); CHLORIDE 109 mmol/L (98-107); CREATININE 0.98 mg/dl (0.60-1.20); GLUCOSE 115 mg/dl (70-99); POTASSIUM 3.7 mmol/L (3.5-5.1); SODIUM 141 mmol/L (136-145)
[2017-01-31 05:04] LABS: CKMB/CK RATIO 1.8 (0-3.0)
[2017-01-31 05:22] VITALS: Ht 167.6 cm; Wt 79.1 kg
--- NOTE | 2017-01-31 05:33 | Medical Consult ---
Consultation Date of Consultation: Jan 31, 2017. Attending Physician: Dr. Josh Hoffman Reason for Consultation: Chest Pain History of Present Illness The patient presents with chest pain. The patient states that she was doing well until yesterday afternoon. She states that she was eating a salad yesterday afternoon. She states that she started feeling a pain in her chest. She calls it an aching pain, across the whole chest, without any radiation. The pain was not associated with exertion or rest. Tylenol did help with the pain. She has tenderness across her chest wall. The pain returned again this morning at 0200 and Tylenol did not help. No shortness of breath, coughing or wheezing. She denies palpitations, lightheadedness of syncope. She denies any injury to the chest. She states that her pain is similar to previous chest pains she has had in the ED that have ultimately been deemed to be non-cardiac. No fevers, chills or sweats. Past Medical/Surgical History Medical Problems: (1) [id number] Status: Acute (2) Abnormal EKG Status: Acute (3) Acute electrocardiogram changes Status: Acute (4) Anticoagulant long-term use Status: Acute (5) Anxiety Status: Acute (6) Atypical chest pain Status: Acute (7) Atypical chest pain Status: Acute (8) Bronchitis Status: Acute (9) Chest wall pain Status: Acute (10) Chest wall pain following surgery Status: Acute (11) CVA (cerebral vascular accident) Status: Acute (12) Dizzy Status: Acute (13) Elevated troponin Status: Acute (14) Fatigue Status: Acute (15) History of coronary artery disease Status: Acute (16) Hyperglycemia Status: Acute (17) Hypoxia Status: Acute (18) Labile blood pressure Status: Acute (19) Left sided chest pain Status: Acute (20) Left sided chest pain Status: Acute (21) Nausea, vomiting, and diarrhea Status: Acute (22) Non-cardiac chest pain Status: Acute (23) Non-cardiac chest pain Status: Acute (24) Persistent cough Status: Acute (25) PNA (pneumonia) Status: Acute (26) Precordial chest pain Status: Acute (27) Precordial chest pain Status: Acute (28) Renal insufficiency Status: Acute (29) Sleep deprivation Status: Acute (30) Sleep deprivation Status: Acute (31) Subtherapeutic international normalized ratio (INR) Status: Acute (32) Supratherapeutic international normalized ratio (INR) Status: Acute (33) Weakness Status: Acute Diabetes Mellitus Hypertension Hypercholesterolemia Colon Ca had [place] in 2016 with CABG x 3 Family History Cancer Diabetes mellitus FHx: aneurysm Heart disease Hypertension Social History Smoking Status: Never Smoker Smokeless Tobacco Use: No Alcohol Use: none Drug Use: none Marital Status: Housing Status: lives with significant other Occupation Status: retired Allergies Coded Allergies: Cefadroxil (Verified Allergy, Intermediate, UNKNOWN, 10/18/16) Clindamycin (Verified Allergy, Intermediate, UNKNOWN, 01/31/17) Levofloxacin (Verified Allergy, Intermediate, UNKNOWN, 10/18/16) Metronidazole (Verified Allergy, Intermediate, UNKNOWN, 01/31/17) Amoxicillin (Verified Adverse Reaction, Mild, diarrhea, 01/31/17) Clavulanic Acid (Verified Adverse Reaction, Mild, diarrhea, 10/18/16) Metformin (Verified Adverse Reaction, Mild, diarreha, 01/31/17) Sitagliptin (Verified Adverse Reaction, Mild, diarreha, 01/31/17) Home Medications Reported Home Medications Medications Dose Route/Sig Max Daily Dose Days Date Category Dose Instructions Novolog Flexpen (Insulin Aspart) 100 Units/Ml Inj SQ UD 01/31/17 Reported INJECT 14 UNITS WITH BREAKFAST AND LUNCH AND 17 UNITS WITH DINNER plus sliding scale. TDD 60-70 Prevalite (Cholestyramine Light) 4 Gm/Dose Pow 4 Gm PO BID 01/31/17 Reported Zolpidem Tartrate 10 Mg Tab 10 Mg PO HS PRN 01/31/17 Reported Tresiba Flextouch (Insulin Degludec) 100 Unit/Ml Inj 20 Units SQ QPM 10/18/16 Reported Reclast (Zoledronic Acid) 5 Mg/100 Ml Inj 5 Mg IV YEARLY 10/18/16 Reported Neurontin (Gabapentin) 100 Mg Cap 100 Mg PO QPM 10/18/16 Reported Lexapro (Escitalopram Oxalate) 5 Mg Tab 5 Mg PO DAILY 10/18/16 Reported Crestor (Rosuvastatin Calcium) 40 Mg Tab 40 Mg PO DAILY 10/18/16 Reported Plavix (Clopidogrel Bisulfate) 75 Mg Tab 75 Mg PO DAILY 10/18/16 Reported Vitamin D3 (Cholecalciferol) 2,000 Unit Cap 2,000 Unit PO BID 09/22/16 Reported Prednisone 5 Mg Tab 5 Mg PO QAM 09/22/16 Reported Protonix (Pantoprazole) 40 Mg Tab 40 Mg PO QAM 09/22/16 Reported Zithromax (Azithromycin) 500 Mg Tab 500 Mg PO DAILY PRN 09/22/16 Reported Neurontin (Gabapentin) 100 Mg Cap 200 Mg PO QAM 09/15/16 Reported Ativan (Lorazepam) 0.5 Mg Tab 0.5 Mg PO TID PRN 09/01/16 Reported Isosorbide Mononitrate ER (Isosorbide Mononitrate) 30 Mg Tabcr 30 Mg PO QAM 08/11/16 Reported Cozaar (Losartan Potassium) 100 Mg Tab 50 Mg PO QAM 05/24/16 Reported Tylenol Extra Strength (Acetaminophen) 500 Mg Tab 1,000 Mg PO TID PRN 03/01/15 Reported Metoprolol Succinate ER (Metoprolol Succinate) 100 Mg Tabcr 100 Mg PO QPM 03/01/15 Reported Calcium 600 + D 600-200 mg-Unit (Calcium Carbonate-Cholecalcife) 1 Tab Tab 1 Tabs PO BID 10/04/14 Reported Nitrostat (Nitroglycerin) 0.4 Mg Sub 0.4 Mg UT UD PRN 01/02/14 Reported Current Inpatient Medications Current Inpatient Medications Medications (Trade) Dose Ordered Sig/Sincere Route Start Time Stop Time Status Last Admin Dose Admin Nitroglycerin (Nitrostat Tab) 0.4 mg Q5M PRN SL 01/31/17 04:30 03/02/17 04:29 01/31/17 04:28 0.4 MG Review of Systems A 10 point review of systems was negative unless stated above. Physical Exam Date Time Temp Pulse Resp B/P (MAP) Pulse Ox O2 Delivery O2 Flow Rate FiO2 01/31/17 04:39 70 01/31/17 04:32 88 18 132/81 01/31/17 04:23 73 16 132/81 01/31/17 04:23 96 Room Air 01/31/17 04:23 36.5 82 18 191/81 93 Room Air 01/31/17 04:21 98 Room Air General Appearance: WD/WN, no apparent distress Head: normocephalic Eyes: normal inspection, EOMI ENT: hearing grossly normal, pharynx normal Neck: supple, no adenopathy, no JVD Respiratory/Chest: lungs clear, no respiratory distress, + pertinent finding ( midline sternotomy scar; bilateral chest wall tenderness with xyphoid tenderness to palpation) Cardiovascular: regular rate, rhythm, no gallop, no murmur Abdomen/GI: normal bowel sounds, non tender, soft Back: no CVA tenderness, no muscle spasm Extremities/Musculoskelatal: no calf tenderness, no pedal edema Neurologic/Psych: alert, normal mood/affect, oriented x 3 Skin: normal color, warm/dry, no rash Lymphatic: no adenopathy Laboratory Results Last 24 Hours Test 01/31/17 04:25 White Blood Count 6.45 K/uL Red Blood Count 4.28 M/uL Hemoglobin 12.7 g/dL Hematocrit 39.6 % Mean Corpuscular Volume 92.5 fL Mean Corpuscular Hemoglobin 29.7 pg Mean Corpuscular Hemoglobin Concent 32.1 g/dl Platelet Count 148 K/uL Mean Platelet Volume 9.4 fL Neutrophils (%) (Auto) 54.2 % Lymphocytes (%) (Auto) 30.1 % Monocytes (%) (Auto) 14.6 % Eosinophils (%) (Auto) 0.9 % Basophils (%) (Auto) 0.0 % Neutrophils # (Auto) 3.50 K/uL Lymphocytes # (Auto) 1.94 K/uL Monocytes # (Auto) 0.94 K/uL Eosinophils # (Auto) 0.06 K/uL Basophils # (Auto) 0.00 K/uL RDW Standard Deviation 51.8 fL RDW Coefficient of Variation 15.3 % Immature Granulocyte % (Auto) 0.2 % Immature Granulocyte # (Auto) 0.01 K/uL Sodium Level 141 mmol/L Potassium Level 3.7 mmol/L Chloride Level 109 mmol/L Carbon Dioxide Level 30 mmol/L Anion Gap 2.0 mmol/L Blood Urea Nitrogen 16 mg/dl Creatinine 0.98 mg/dl Estimated GFR () 63.1 Estimated GFR (Non- 54.5 BUN/Creatinine Ratio 16.2 Random Glucose 115 mg/dl Calcium Level 9.5 mg/dl Total Creatine Kinase 38 U/L Creatine Kinase MB 0.7 ng/ml Creatine Kinase MB Ratio 1.8 Troponin I < 0.015 ng/ml Assessment & Plan 81 year old female presenting with chest pain. Review of records indicate that she has been here on multiple occasions for similar pain that has been deemed non-cardiac. She has chest wall tenderness but review of previous records indicate she has PMR. On exam, she seems to have some component of xypho-sternal arthritis. She has a negative troponin and review of today's EKG does not reveal any acute change. She does have known CAD with history of CABG x 3 in March 2016. Our recommendations are as follows: - In light of cardiac history, we recommend repeat a troponin level at the 2 hour jo-ann from first lab draw. If remains negative, the patient can be discharged home with PCP follow-up - If the patient is discharged, we do not recommend any medication changes at this time. - Can discharge patient with Voltaren gel for sternal/xypho-sternal chest pain - The patient states that she has follow-up appointment with her advertising operations coordinator today, which will be useful to follow up on patient's chronic PMR. This will also allow for evaluation of an inflammatory arthritis, if not already done. Attending Addendum: I have physically seen and examined this patient, have supervised the medical residents activities, and agree with the H&P as noted above with the following exceptions as noted. The patient denies palpitations, shortness of breath, cough lower extremity swelling, sore throat, fevers, chills, sweats, weight change, fatigue, nausea, vomiting, abdominal pain, pelvic pain, blood in urine or stool, dysuria, urinary frequency or urgency, lightheadedness, dizziness, headache, memory loss , rash, abnormal bruising or bleeding, imbalance, focal weakness, night sweats, or allergy symptoms. The review of systems is otherwise negative other than for that already noted above, and at least 10 systems have been reviewed. The patient is awake, well-developed and adequately nourished, alert and oriented 3, normocephalic and atraumatic, lying in bed and in no acute distress. HEENT--PERRL, EOMI, mucous membranes and oropharynx dry. Neck--supple, no JVD or bruits, thyroid normal, trachea midline, no adenopathy. Heart--normal S1 and S2, no extra beats, no murmurs, rubs or gallops. Lungs--clear bilaterally with good air movement, no respiratory distress, no accessory muscle use. Chest wall with reproducible pain over xiphoid process Abdomen--normal bowel sounds and soft, nontender and nondistended, no hernias or masses, no organomegaly. Extremities--no cyanosis, clubbing or edema. There are good distal pulses b/l. Dermatologic--normal skin turgor, normal color, warm and dry, no abnormal lymph nodes, no rash. Neurologic--cranial nerves II through XII grossly intact. Rheumatologic--normal range of motion, nontender, muscles and joints. Psychiatric--normal affect. 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 Recommend Voltaren gel to be applied 4 times a day when necessary. Dry mucous membranes--if she has not been yet assessed for Sjogren's syndrome and associated arthritis along with her PMR, she will follow-up with Dr. Starr, her advertising operations coordinator later today. She does not look to be on any medications for side effect of causing dry mucous membranes. CAD/hypertension/status post CABG--continue current regimen Diabetes mellitus--continue current regimen on discharge .Agree with recommendation to discharge patient to home with normal second troponin.
--- NOTE | 2017-01-31 07:36 | DIAGNOSTIC IMAGING REPORT ---
SINGLE VIEW CHEST CLINICAL HISTORY: Atypical chest pain. FINDINGS: An AP, portable, upright chest radiograph is compared to study dated 10/18/2016. The examination is degraded by portable technique and patient rotation. The patient is status post midline sternotomy. The heart is enlarged and there is atherosclerotic calcification of the thoracic aorta. The pulmonary vasculature is noncongested. Chronic interstitial thickening is similar to previous. No airspace consolidation, large pleural effusion, or pneumothorax is seen. The skeletal structures are osteopenic. The bony thorax is grossly intact. Calcific tendinopathy is noted in left shoulder. IMPRESSION: Cardiomegaly with no acute cardiopulmonary abnormality. Electronically signed by: Efren Taylor M.D. 01/31/2017 7:35 AM Dictated Date/Time: 01/31/2017 7:34 AM
--- NOTE | 2017-01-31 08:07 | EMERGENCY ROOM VISIT NOTE ---
ED Visit Note 81-year-old female with substernal chest pain was fully evaluated by Dr. Cárdenas. The patient was also evaluated by the resident and Dr. Hoffman. I reevaluated the patient had 08:00. The patient is pain-free. She's had 2 sets of negative enzymes. This pain appears to be similar to what she has experienced multiple times in the past diagnosed as chest wall pain. The patient has another appointment later today with her door core assembler. Eight Section Blower suggested Voltaren topical but I will await input from the door core assembler prior to prescribing that medication. The patient was encouraged to return here immediately if she has more chest pain or any shortness of breath.
[2017-01-31 08:30] VITALS: BP 151/76; PULSE 64; O2SAT 93
== END 2017-01-31 08:30 | disposition home or self-care (01) ==
LOC: C.EDB 04:03
DX: R07.2 Precordial pain (principal); F41.9 Anxiety disorder, unspecified; I25.2 Old myocardial infarction; Z95.1 Presence of aortocoronary bypass graft; Z95.5 Presence of coronary angioplasty implant and graft; Z86.73 Personal history of transient ischemic attack (TIA), and cerebral infarction without residual deficits; I25.10 Atherosclerotic heart disease of native coronary artery without angina pectoris; Z85.038 Personal history of other malignant neoplasm of large intestine; Z90.49 Acquired absence of other specified parts of digestive tract; E11.9 Type 2 diabetes mellitus without complications; E78.4 Other hyperlipidemia; M06.9 Rheumatoid arthritis, unspecified; Z80.9 Family history of malignant neoplasm, unspecified; Z83.3 Family history of diabetes mellitus; Z82.49 Family history of ischemic heart disease and other diseases of the circulatory system; Z79.01 Long term (current) use of anticoagulants; Z79.4 Long term (current) use of insulin; Z79.899 Other long term (current) drug therapy; M35.3 Polymyalgia rheumatica; M35.00 Sjogren syndrome, unspecified

== ENCOUNTER → 2017-01-31 | Outpatient (CLI) | payer OTHER ==
[2017-02-04 04:31] LABS: ANTI-CENTROMERE AB <1.0 NEG AI (<1.0 NEG); ANTI-SS-A <1.0 NEG AI (<1.0 NEG); ANTI-SS-B <1.0 NEG AI (<1.0 NEG); DNA ds CRITHIDIA NEGATIVE (NEGATIVE); Sm Antibody <1.0 NEG AI (<1.0 NEG)
[2017-02-06 10:42] LABS: ANA TITER > OR = 1:1280 TITER (<1:40)
== END | disposition home or self-care (01) ==
LOC: C.LAB1850 11:41
PROVIDERS: ATTEND Internal Medicine Rheumatology
DX: M35.3 Polymyalgia rheumatica (principal); M35.00 Sjogren syndrome, unspecified

== ENCOUNTER 2017-02-05 18:23 | Emergency (ER) | payer OTHER ==
[~2017-02-05] VITALS: Ht 167.6 cm; Wt 76.7 kg
[~2017-02-05 18:23] MED LIST changes: +CHOL4POW5 PO; +NVLGI/PEN SQ; -ONDA4TAB54 PO; -PRD/1 PO; +ZOLP10TA6 PO; -ZOLP5TAB6 PO
[2017-02-05 18:27] VITALS: TEMP 36.6; Ht 167.6 cm; Wt 76.7 kg
[2017-02-05] MEDS ORDERED: SODIUM CHLORIDE 0.9% 1000ML 250 ML IV STA (19:03)
[2017-02-05] MEDS ORDERED: SODIUM CHLORIDE 0.9% 1000ML 1,000 ML IV STA (19:03)
[2017-02-05 19:13] LABS: BASO % 0.2 %; BASO ABS # 0.01 K/uL (0-0.2); COMPLETE YES; EOS % 0.5 %; HEMATOCRIT 40.1 % (37-47); IG% 0.2 %; LYMPH % 34.2 %; LYMPH ABS # 2.19 K/uL (1.2-3.4); MEAN CELL VOLUME 92.8 fL (80-100); MEAN CORPUSCULAR HEMOGLOBIN 30.8 pg (25-34); MEAN CORPUSCULAR HGB CONC 33.2 g/dl (32-36); MEAN PLATELET VOLUME 10.2 fL (7.4-10.4); NEUT % 52.9 %; PLATELET COUNT 184 K/uL (130-400); RED BLOOD COUNT 4.32 M/uL (4.2-5.4); WHITE BLOOD COUNT 6.41 K/uL (4.8-10.8)
--- NOTE | 2017-02-05 19:17 | EMERGENCY ROOM VISIT NOTE ---
History Report prepared by Ivana: Margie Queen Under the Supervision of: Dr. Domenico Juarez M.D. First contact with patient: 18:34 Chief Complaint: ABDOMINAL PAIN Stated Complaint: LOWER ABDOMEN PAIN Nursing Triage Summary: Pt reports pain across abd that began yesterday. Denies n/v/d. Pt states, "I feel like I'm going to pass out." Pain in back. Urinary freq. History of Present Illness The patient is an 81 year old female who presents to the Emergency Room with complaints of intermittent abdominal pain starting yesterday. She currently rates her pain as a 5/10 in severity. The patient states that she feels like she is going to pass out anytime she moves. The patient complains of frequent urination, back pain, and soreness in her chest. She notes that she has been here for that already five days ago. The patient notes that she has been taking Tylenol with no relief. The patient denies burning with urination. The patient notes that she takes blood thinners. The patient denies a history of kidney stones and aneurysms. Source of History: patient Onset: yesterday Position: abdomen Symptom Intensity: 5/10 Timing: intermittent Modifying Factors (Worsening): movement Associated Symptoms: + chest pain (soreness), + back pain, + urinary symptoms (frequent urination) Note: The patient denies burning with urination. Review of Systems See HPI for pertinent positives & negatives. A total of 10 systems reviewed and were otherwise negative. Past Medical & Surgical Medical Problems: (1) CAD (coronary artery disease) (2) Carcinoma of colon (3) Colectomy (4) Coronary artery disease involving [place] coronary artery (5) Diabetes (6) Dizziness (7) Familial combined hyperlipidemia (8) Peptic ulcer (9) Rheumatoid arthritis (10) Stable angina (11) Stroke (12) Vertigo Surgical Problems: (1) History of cholecystectomy (2) History of colectomy (3) Removal of pin, plate, lulu, or screw (4) S/P CABG x 3 Old medical records were reviewed. Nurse's notes were reviewed and I agree with. Family History Cancer Diabetes mellitus FHx: aneurysm Heart disease Hypertension Social History Smoking Status: Never Smoker Alcohol Use: none Drug Use: none Marital Status: Housing Status: lives with significant other Occupation Status: retired Current/Historical Medications Scheduled Calcium Carbonate-Cholecalcife (Calcium 600 + D 600-200 mg-Unit), 1 TABS PO BID Cholecalciferol (Vitamin D3), 2,000 UNIT PO BID Cholestyramine Light (Prevalite), 4 GM PO BID Clopidogrel (Plavix), 75 MG PO DAILY Escitalopram Oxalate (Lexapro), 5 MG PO DAILY Gabapentin (Neurontin), 200 MG PO QAM Gabapentin (Neurontin), 100 MG PO QPM Insulin Aspart (Novolog Flexpen), SQ UD Insulin Degludec (Tresiba Flextouch), 15 UNITS SQ QPM Isosorbide Mononitrate (Isosorbide Mononitrate ER), 30 MG PO QAM Losartan Potassium (Cozaar), 50 MG PO QAM Metoprolol Succinate (Metoprolol Succinate ER), 100 MG PO QPM Pantoprazole (Protonix), 40 MG PO QAM Prednisone (Prednisone), 5 MG PO QAM Rosuvastatin Calcium (Crestor), 40 MG PO DAILY Zoledronic Acid (Reclast), 5 MG IV YEARLY Scheduled PRN Acetaminophen (Tylenol Extra Strength), 1,000 MG PO TID PRN for Pain Azithromycin (Zithromax), 500 MG PO DAILY PRN for BEFORE DENTAL PROCEDURES Lorazepam (Ativan), 0.5 MG PO TID PRN for Anxiety Nitroglycerin (Nitrostat), 0.4 MG UT UD PRN for Chest Pain Zolpidem Tartrate (Zolpidem Tartrate), 10 MG PO HS PRN for Sleep Allergies Coded Allergies: Cefadroxil (Verified Allergy, Intermediate, UNKNOWN, 02/05/17) Clindamycin (Verified Allergy, Intermediate, UNKNOWN, 02/05/17) Levofloxacin (Verified Allergy, Intermediate, UNKNOWN, 02/05/17) Metronidazole (Verified Allergy, Intermediate, UNKNOWN, 02/05/17) Amoxicillin (Verified Adverse Reaction, Mild, diarrhea, 02/05/17) Clavulanic Acid (Verified Adverse Reaction, Mild, diarrhea, 02/05/17) Metformin (Verified Adverse Reaction, Mild, diarreha, 02/05/17) Sitagliptin (Verified Adverse Reaction, Mild, diarreha, 02/05/17) Physical Exam Vital Signs Date Time Temp Pulse Resp B/P (MAP) Pulse Ox O2 Delivery O2 Flow Rate FiO2 02/05/17 20:27 65 20 157/71 93 Room Air 02/05/17 18:27 36.6 88 20 126/79 94 Room Air Physical Exam General: Well developed well nourished in no acute distress, breathing comfortably on room air. Normal speech. Non-ill appearing older female. HEENT: Normal cephalic atraumatic. Pupils are equal round and reactive to light. Extraocular movements are intact. Oropharynx is pink with moist mucous membranes. No swelling of the mouth lips or tongue. Neck: Supple with a midline trachea. No meningeal signs or stiffness, no JVD or bruits. No Stridor. Chest: Clear to auscultation bilaterally. No wheezes or rhonchi. No increased work of breathing. Heart: regular rate and rhythm. Abdomen: Soft , nondistended without rebound guarding or rigidity. Mild lower abdominal tenderness. No masses. Extremities: No cyanosis clubbing or edema. No calf tenderness or assymetry Spine/Back. Non tender to palpation. No CVA tenderness Skin: Good turgor without rashes. Neurologic exam: Cranial nerves two through 12 are intact. Motor and sensation are intact and symmetrical throughout. Medical Decision & Procedures ER Provider Diagnostic Interpretation: Radiology results as stated below per my review and radiologist interpretation: ABD/PELVIS WITHOUT FOR STONE HISTORY: 81 years-old Female acute flank pain with concern for nephrolithiasis. Prior right hemicolectomy with ileocolic anastomosis. COMPARISON: CT abdomen and pelvis 05/30/2016 TECHNIQUE: Multiple axial CT images of the abdomen and pelvis were obtained without IV contrast. A dose lowering technique was used consistent with the principals of ANA. FINDINGS: Cardiomegaly is partially imaged with prosthetic aortic valve partially imaged. There are dense [place] calcifications of the aortic annulus. Median sternotomy. Nonunion of the sternum. No evidence of sternal dehiscence. There is mild subsegmental bibasilar atelectasis noted. No pneumoperitoneum. Prior cholecystectomy. The liver, spleen, adrenal glands are unremarkable. There is severe pancreatic atrophy. Kidneys and ureters demonstrate no acute abnormality. No renal calculi or hydronephrosis. Urinary bladder is unremarkable. Somewhat lobular morphology of the uterine fundus is seen with focal calcifications suggesting fibroid disease. Moderate to extensive atherosclerosis involves the abdominal aorta. Fusiform ectasia of the infrarenal abdominal aorta is seen, 2.4 x 2.6 cm. No aneurysm identified. No bulky retroperitoneal adenopathy. There is no bowel obstruction. Colonic diverticulosis without diverticulitis noted. Postsurgical changes of prior right hemicolectomy with ileocolic anastomosis noted. No evidence of anastomotic dehiscence or bowel obstruction. Note is made of diastasis recti. Intramedullary nail the right femur noted. The bones are mildly demineralized and appear intact. No compression deformity IMPRESSION: 1. No acute intra-abdominal or intrapelvic abnormality identified, specifically no renal calculi or hydronephrosis. 2. Prior right hemicolectomy with ileocolic anastomosis. No bowel obstruction. 3. Extensive atherosclerotic plaquing of the abdominal aorta with fusiform ectasia of the infrarenal abdominal aorta, 2.4 x 2.6 cm. 4. Colonic diverticulosis without diverticulitis. The above report was generated using voice recognition software. It may contain grammatical, syntax or spelling errors. Electronically signed by: Den Estrada M.D. 02/05/2017 8:20 PM Dictated Date/Time: 02/05/2017 8:14 PM Laboratory Results 02/05/17 18:50 Red Blood Count 4.32, Mean Corpuscular Volume 92.8, Mean Corpuscular Hemoglobin 30.8, Mean Corpuscular Hemoglobin Concent 33.2, Mean Platelet Volume 10.2, Neutrophils (%) (Auto) 52.9, Lymphocytes (%) (Auto) 34.2, Monocytes (%) (Auto) 12.0, Eosinophils (%) (Auto) 0.5, Basophils (%) (Auto) 0.2, Neutrophils # (Auto ) 3.40, Lymphocytes # (Auto) 2.19, Monocytes # (Auto) 0.77, Eosinophils # (Auto ) 0.03, Basophils # (Auto) 0.01 02/05/17 18:50 Test 02/05/17 18:50 White Blood Count 6.41 K/uL (4.8-10.8) Red Blood Count 4.32 M/uL (4.2-5.4) Hemoglobin 13.3 g/dL (12.0-16.0) Hematocrit 40.1 % (37-47) Mean Corpuscular Volume 92.8 fL (80-100) Mean Corpuscular Hemoglobin 30.8 pg (25-34) Mean Corpuscular Hemoglobin Concent 33.2 g/dl (32-36) Platelet Count 184 K/uL (130-400) Mean Platelet Volume 10.2 fL (7.4-10.4) Neutrophils (%) (Auto) 52.9 % Lymphocytes (%) (Auto) 34.2 % Monocytes (%) (Auto) 12.0 % Eosinophils (%) (Auto) 0.5 % Basophils (%) (Auto) 0.2 % Neutrophils # (Auto) 3.40 K/uL (1.4-6.5) Lymphocytes # (Auto) 2.19 K/uL (1.2-3.4) Monocytes # (Auto) 0.77 K/uL (0.11-0.59) Eosinophils # (Auto) 0.03 K/uL (0-0.5) Basophils # (Auto) 0.01 K/uL (0-0.2) RDW Standard Deviation 51.7 fL (36.4-46.3) RDW Coefficient of Variation 15.3 % (11.5-14.5) Immature Granulocyte % (Auto) 0.2 % Immature Granulocyte # (Auto) 0.01 K/uL (0.00-0.02) Urine Color YELLOW Urine Appearance CLEAR (CLEAR) Urine pH 6.0 (4.5-7.5) Urine Specific [place] 1.018 (1.000-1.030) Urine Protein NEG (NEG) Urine Glucose (UA) 1+ (NEG) Urine Ketones NEG (NEG) Urine Occult Blood NEG (NEG) Urine Nitrite NEG (NEG) Urine Bilirubin NEG (NEG) Urine Urobilinogen NEG (NEG) Urine Leukocyte Esterase NEG (NEG) Anion Gap 7.0 mmol/L (3-11) Est Creatinine Clear Calc Drug Dose 42.7 ml/min Estimated GFR () 54.9 Estimated GFR (Non- 47.4 BUN/Creatinine Ratio 15.6 (10-20) Calcium Level 9.7 mg/dl (8.5-10.1) Total Bilirubin 0.5 mg/dl (0.2-1) Direct Bilirubin 0.1 mg/dl (0-0.2) Aspartate Amino Transf (AST/SGOT) 25 U/L (15-37) Alanine Aminotransferase (ALT/SGPT) 27 U/L (12-78) Alkaline Phosphatase 78 U/L (45-117) Total Protein 7.6 gm/dl (6.4-8.2) Albumin 3.9 gm/dl (3.4-5.0) Lipase 137 U/L (73-393) Laboratory studies as stated above per my review. Medications Administered Medications (Trade) Dose Ordered Sig/Sincere Route Start Time Stop Time Status Last Admin Dose Admin Sodium Chloride 250 ml @ 999 mls/hr Q16M STAT IV 02/05/17 19:03 02/05/17 19:21 DC 02/05/17 19:03 999 MLS/HR Sodium Chloride 1,000 ml @ 100 mls/hr Q10H STAT IV 02/05/17 19:03 02/06/17 05:02 02/05/17 19:03 100 MLS/HR ED Course 1835: Past medical records reviewed. The patient was evaluated in room B11B, and a complete history and physical examination were performed. 1902: Ordered NSS 1000 ml @ 100 mls/hr IV, NSS 250 ml @ 999 mls/hr IV. 2043: Upon reevaluation, the patient is feeling better. I discussed the results and treatment plan with her. She verbalized agreement of the treatment plan. The patient was discharged home. Medical Decision Differential diagnoses include UTI, aneurysm, kidney stone, diverticulitis, colon cancer, electrolyte abnormality, metabolic abnormality. This patient comes in as described above. She was placed in room B 11. She is here for treatment and evaluation of lower abdominal pain. She looks well on exam. She's been afebrile. She's had no trauma. IV access established and she was hydrated with IV normal saline. Urinalysis was obtained as well as multiple blood testing. She was reassessed frequently. Her urinalysis is unremarkable and does not suggest a UTI with a culture pending. She has no white count or fever to suggest infection. She's had no acute electrolyte or metabolic abnormalities. She has normal kidney function. CAT scan of her abdomen and pelvis do not show any acute findings. She is no evidence of acute aneurysm or infectious process or obstruction. She seemed to be doing better. She will be discharged home . She will return if : increasing pain, worsening of symptoms, fever or chills, any new problems or concerns. She follow with her doctor in 1 to 2 days for recheck. Medication Reconcilliation Current Medication List: was personally reviewed by me Blood Pressure Screening Patient's blood pressure: Normal blood pressure Blood pressure disposition: Did not require urgent referral Impression Primary Impression: Bilateral lower abdominal pain Scribe Attestation The scribe's documentation has been prepared under my direction and personally reviewed by me in its entirety. I confirm that the note above accurately reflects all work, treatment, procedures, and medical decision making performed by me. Departure Information Dispostion Home / Self-Care Referrals Davion Flores M.D. (PCP) Forms HOME CARE DOCUMENTATION FORM, IMPORTANT VISIT INFORMATION Patient Instructions My [facility] Additional Instructions Rest. Drink plenty of fluids. Mild diet. May use [id number] Tylenol/acetaminophen if needed for pain-do not exceed the [id number] recommended dosages. Return if: Increasing pain, fever or chills, worsening of symptoms, any new problems or concerns. Follow-up with your doctor this week for recheck
[2017-02-05 19:18] LABS: URINE APPEARANCE CLEAR (CLEAR); URINE BILIRUBIN NEG (NEG); URINE COLOR YELLOW; URINE NITRITE NEG (NEG); URINE SPECIFIC GRAVITY 1.018 (1.000-1.030); UROBILINOGEN NEG (NEG)
[2017-02-05 19:20] LABS: BUN/CREATININE RATIO 15.6 (10-20); CALCIUM 9.7 mg/dl (8.5-10.1); CREATININE 1.1 mg/dl (0.60-1.20); POTASSIUM 4.1 mmol/L (3.5-5.1)
[2017-02-05 19:31] LABS: MANUAL MICROSCOPIC REQUIRED? NO; REVIEW REQ? NO
--- NOTE | 2017-02-05 20:21 | DIAGNOSTIC IMAGING REPORT ---
ABD/PELVIS WITHOUT FOR STONE HISTORY: 81 years-old Female acute flank pain with concern for nephrolithiasis. Prior right hemicolectomy with ileocolic anastomosis. COMPARISON: CT abdomen and pelvis 05/30/2016 TECHNIQUE: Multiple axial CT images of the abdomen and pelvis were obtained without IV contrast. A dose lowering technique was used consistent with the principals of ANA. FINDINGS: Cardiomegaly is partially imaged with prosthetic aortic valve partially imaged. There are dense [place] calcifications of the aortic annulus. Median sternotomy. Nonunion of the sternum. No evidence of sternal dehiscence. There is mild subsegmental bibasilar atelectasis noted. No pneumoperitoneum. Prior cholecystectomy. The liver, spleen, adrenal glands are unremarkable. There is severe pancreatic atrophy. Kidneys and ureters demonstrate no acute abnormality. No renal calculi or hydronephrosis. Urinary bladder is unremarkable. Somewhat lobular morphology of the uterine fundus is seen with focal calcifications suggesting fibroid disease. Moderate to extensive atherosclerosis involves the abdominal aorta. Fusiform ectasia of the infrarenal abdominal aorta is seen, 2.4 x 2.6 cm. No aneurysm identified. No bulky retroperitoneal adenopathy. There is no bowel obstruction. Colonic diverticulosis without diverticulitis noted. Postsurgical changes of prior right hemicolectomy with ileocolic anastomosis noted. No evidence of anastomotic dehiscence or bowel obstruction. Note is made of diastasis recti. Intramedullary nail the right femur noted. The bones are mildly demineralized and appear intact. No compression deformity IMPRESSION: 1. No acute intra-abdominal or intrapelvic abnormality identified, specifically no renal calculi or hydronephrosis. 2. Prior right hemicolectomy with ileocolic anastomosis. No bowel obstruction. 3. Extensive atherosclerotic plaquing of the abdominal aorta with fusiform ectasia of the infrarenal abdominal aorta, 2.4 x 2.6 cm. 4. Colonic diverticulosis without diverticulitis. The above report was generated using voice recognition software. It may contain grammatical, syntax or spelling errors. Electronically signed by: Den Estrada M.D. 02/05/2017 8:20 PM Dictated Date/Time: 02/05/2017 8:14 PM
[2017-02-05 20:27] VITALS: BP 157/71; PULSE 65; O2SAT 93
== END 2017-02-05 20:53 | disposition home or self-care (01) ==
LOC: C.EDB 18:25
DX: R10.30 Lower abdominal pain, unspecified (principal); I25.10 Atherosclerotic heart disease of native coronary artery without angina pectoris; Z85.038 Personal history of other malignant neoplasm of large intestine; E11.9 Type 2 diabetes mellitus without complications; E78.5 Hyperlipidemia, unspecified; K27.9 Peptic ulcer, site unspecified, unspecified as acute or chronic, without hemorrhage or perforation; M06.9 Rheumatoid arthritis, unspecified; Z86.73 Personal history of transient ischemic attack (TIA), and cerebral infarction without residual deficits; Z95.1 Presence of aortocoronary bypass graft; Z80.9 Family history of malignant neoplasm, unspecified; Z83.3 Family history of diabetes mellitus; Z82.49 Family history of ischemic heart disease and other diseases of the circulatory system; Z79.02 Long term (current) use of antithrombotics/antiplatelets; Z79.52 Long term (current) use of systemic steroids; Z79.4 Long term (current) use of insulin; Z79.899 Other long term (current) drug therapy

== ENCOUNTER → 2017-02-08 | Outpatient (CLI) | payer OTHER ==
--- NOTE | 2017-02-08 12:17 | DIAGNOSTIC IMAGING REPORT ---
RIGHT WRIST MIN 3 VIEWS ROUTINE CLINICAL HISTORY: Acute right wrist pain. COMPARISON: None FINDINGS: Alignment of the right wrist is anatomic. There is severe joint space narrowing with osteophytosis of the right first carpometacarpal joint. There is moderate osteophytosis of the radiocarpal articulation. No osseous lesion is identified. IMPRESSION: 1. No acute fracture. 2. 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 Electronically signed by: Emmanuel Marino M.D. 02/08/2017 12:15 PM Dictated Date/Time: 02/08/2017 12:14 PM
== END | disposition home or self-care (01) ==
LOC: C.RADBC 11:51
PROVIDERS: ATTEND Physician Assistant Medical
DX: M25.531 Pain in right wrist (principal); M19.031 Primary osteoarthritis, right wrist

== ENCOUNTER → 2017-02-27 | Outpatient (CLI) | payer OTHER ==
[2017-02-27 12:05] LABS: BASO % 0.1 %; BASO ABS # 0.01 K/uL (0-0.2); COMPLETE YES; EOS % 0.5 %; HEMATOCRIT 39.7 % (37-47); IG% 0.1 %; LYMPH % 22.3 %; LYMPH ABS # 1.71 K/uL (1.2-3.4); MEAN CELL VOLUME 95.4 fL (80-100); MEAN CORPUSCULAR HEMOGLOBIN 30.5 pg (25-34); MEAN PLATELET VOLUME 10.6 fL (7.4-10.4); MONO % 8.2 %; NEUT % 68.8 %; PLATELET COUNT 170 K/uL (130-400); RED BLOOD COUNT 4.16 M/uL (4.2-5.4); WHITE BLOOD COUNT 7.67 K/uL (4.8-10.8)
[2017-02-27 12:11] LABS: URINE APPEARANCE CLEAR (CLEAR); URINE BILIRUBIN NEG (NEG); URINE COLOR YELLOW; URINE EPITHELIAL CELL AUTO 0-5 /lpf (0-5); URINE NITRITE NEG (NEG); URINE SPECIFIC GRAVITY 1.009 (1.000-1.030); UROBILINOGEN NEG (NEG); ZZUR CULT IF INDIC CLEAN CATCH NO
[2017-02-27 12:12] LABS: MANUAL MICROSCOPIC REQUIRED? NO; REVIEW REQ? NO
[2017-02-27 12:43] LABS: BLOOD UREA NITROGEN 15 mg/dl (7-18); BUN/CREATININE RATIO 17.6 (10-20); CALCIUM 9.5 mg/dl (8.5-10.1); CARBON DIOXIDE 28 mmol/L (21-32); CHLORIDE 104 mmol/L (98-107); CREATININE 0.85 mg/dl (0.60-1.20); GLUCOSE 124 mg/dl (70-99); MAGNESIUM 2.3 mg/dl (1.8-2.4); POTASSIUM 4.2 mmol/L (3.5-5.1); SODIUM 139 mmol/L (136-145)
[2017-02-27 12:45] LABS: URINE TOTAL PROTEIN < 5.0 mg/dl (0-11.9)
[2017-02-27 12:46] LABS: CHOLESTEROL 222 mg/dl (0-200); CHOLESTEROL/HDL RATIO 4.9; HDL CHOLESTEROL 45 mg/dl; LDL CHOLESTEROL CALCULATED 123 mg/dl; PHOSPHORUS 2.7 mg/dl (2.5-4.9); TRIGLYCERIDES 268 mg/dl (0-150); VERY LOW DENSITY LIPOPROT CALC 54 mg/dl
== END | disposition home or self-care (01) ==
LOC: C.LAB1850 10:20
PROVIDERS: ATTEND Internal Medicine Nephrology
DX: Z79.52 Long term (current) use of systemic steroids (principal); T38.0X1A Poisoning by glucocorticoids and synthetic analogues, accidental (unintentional), initial encounter; N18.3 Chronic kidney disease, stage 3 (moderate); E78.5 Hyperlipidemia, unspecified

== ENCOUNTER → 2017-03-06 | Outpatient (CLI) | payer OTHER ==
--- NOTE | 2017-03-06 12:42 | DIAGNOSTIC IMAGING REPORT ---
THORACIC SPINE 3 VIEWS ROUTINE HISTORY: 81 years-old Female BONE PAIN acute thoracic spine pain without reported trauma. COMPARISON: Frontal and lateral views of the chest 06/07/2016 TECHNIQUE: Frontal and lateral views of the thoracic spine FINDINGS: Prior median sternotomy. Cardiac silhouette is enlarged. There is atherosclerosis of the aorta. Lung perrin are generally clear. Bones are mildly demineralized. Multilevel endplate spurring, facet arthropathy and intervertebral disc space narrowing is noted throughout the thoracic spine. Vertebral body heights are well-maintained without compression deformity. No malalignment identified. Additionally, multilevel degenerative changes are seen throughout the imaged cervical spine. IMPRESSION: 1. No acute fracture or subluxation. 2. Multilevel intervertebral disc space narrowing, endplate spurring and facet arthropathy of the thoracic spine. The above report was generated using voice recognition software. It may contain grammatical, syntax or spelling errors. Electronically signed by: Den Estrada M.D. 03/06/2017 12:41 PM Dictated Date/Time: 03/06/2017 12:39 PM
== END | disposition home or self-care (01) ==
LOC: C.RAD1850 12:17
PROVIDERS: ATTEND Internal Medicine Rheumatology
DX: M99.72 Connective tissue and disc stenosis of intervertebral foramina of thoracic region (principal)

== ENCOUNTER → 2017-03-14 | Outpatient (CLI) | payer OTHER ==
--- NOTE | 2017-03-14 14:17 | DIAGNOSTIC IMAGING REPORT ---
BONE SCAN WHOLE BODY CLINICAL HISTORY: 81 years-old Female presenting with M89.8X9 Bone painMultiple sites of bone pain, low vitamin-D prior. TECHNIQUE: Planar anterior and posterior whole body imaging was performed 3 hours following the intravenous administration of radiotracer. Radiotracer: 26.7 mCi Tc-99m MDP. COMPARISON: Correlation made to plain radiographs of the right wrist from 02/08/2017, plain radiographs of the bilateral lower extremities from 12/09/2016, chest x-ray from 01/31/2017, and CT of the abdomen and pelvis from 02/05/2017. FINDINGS: Focal mildly increased radiotracer uptake noted in the region of the bilateral acromioclavicular joints, sternomanubrial joint, right first carpometacarpal joint, bilateral knees in the lateral compartments, first and second metatarsophalangeal joints on the right, and first metatarsophalangeal joint on the left. Many of these findings correlate with degenerative changes visible on radiography. Radiotracer uptake in the region of the right hip is primarily along the medial femoral neck rather than at the hip joint itself. Intramedullary nail fixation through the right femoral neck and proximal metadiaphysis with interlocking screw noted on recent CT. Additionally, three sites of focal increased radiotracer uptake along the anterior fourth through sixth ribs. The distribution of this uptake is linear, perpendicular relative to the long axis of the ribs. IMPRESSION: 1. Radiotracer uptake along the medial aspect of the right femoral neck is most likely related to the presence of the internal fixation of the right femoral neck and/or adjacent heterotopic ossification. If there is clinical concern for fracture, further evaluation with dedicated radiographs of the right hip could be considered. 2. Findings suggestive of osteoarthritis at multiple locations described above. 3. Radiotracer uptake in three contiguous anterior left ribs could suggest rib fractures or heterotopic ossification at the costochondral junctions. Correlate for point tenderness. Electronically signed by: Tito aRmirez M.D. 03/14/2017 2:16 PM Dictated Date/Time: 03/14/2017 2:01 PM
== END | disposition home or self-care (01) ==
LOC: C.NUCL 09:44
PROVIDERS: ATTEND Internal Medicine Rheumatology
DX: M89.8X9 Other specified disorders of bone, unspecified site (principal)

== ENCOUNTER → 2017-04-04 | Outpatient (CLI) | payer OTHER ==
[~2017-04-04] MED LIST changes: +CZR50 PO; +SULF800T23 PO
== END | disposition home or self-care (01) ==
LOC: C.LAB1850 14:17
PROVIDERS: ATTEND Internal Medicine Infectious Disease
DX: L02.31 Cutaneous abscess of buttock (principal)

== ENCOUNTER 2017-04-06 10:37 | Emergency (ER) | payer OTHER ==
[~2017-04-06] VITALS: Ht 167.6 cm; Wt 75.8 kg
[~2017-04-06 10:37] MED LIST changes: -CZR50 PO; -LORA-741 PO; -NITR0.4S UT; -SULF800T23 PO
[2017-04-06 10:42] VITALS: TEMP 37.3; Ht 167.6 cm; Wt 75.8 kg
[2017-04-06] MEDS ORDERED: CZR50 PO (11:11)
[2017-04-06] MEDS ORDERED: SULF800T23 PO (11:12)
[2017-04-06] MEDS ORDERED: SODIUM CHLORIDE 0.9% 1000ML 1,000 ML IV STA (11:23)
[2017-04-06] MEDS ORDERED: KETOROLAC TROMETHAMINE 30 MG/ML VIAL IV STA (11:31)
--- NOTE | 2017-04-06 11:33 | EMERGENCY ROOM VISIT NOTE ---
History Report prepared by Ivana: Constance Dotson Under the Supervision of: Dr. Ritesh Lee M.D. First contact with patient: 11:14 Chief Complaint: OTHER COMPLAINT Stated Complaint: ALLERGIC REACTION TO NEW MEDICATION History of Present Illness The patient is an 81 year old female who presents to the Emergency Room with complaints of a persistent illness over the past month. She currently rates her discomfort as a 10/10 in severity. The patient states that for the past month she has not been feeling well. She states that she was found to have a right arm infection and was started on Bactrim on Monday. The patient states that since she started the medication, she has been feeling worse. She reports whole body aches. The patient reports chills and a low-grade fever. She states that yesterday she felt nauseous and has reported a decrease in appetite. The patient states that she consulted Dr. Benavides's office this morning and states that she was instructed to discontinue the Bactrim and to come to the emergency department. She denies any cough, congestion, chest pain, shortness of breath, or urinary symptoms. Source of History: patient Onset: past month Position: other (global) Symptom Intensity: 10/10 Quality: other (illness ) Timing: other (persistent) Modifying Factors (Worsening): other (Bactrim) Associated Symptoms: + fevers, + chills, + nausea, No cough Note: Associated Symptoms: decrease in appetite, whole body aches Review of Systems See HPI for pertinent positives and negatives. A total of ten systems were reviewed and were otherwise negative. Past Medical & Surgical Medical Problems: (1) CAD (coronary artery disease) (2) Carcinoma of colon (3) Colectomy (4) Coronary artery disease involving [place] coronary artery (5) Diabetes (6) Dizziness (7) Familial combined hyperlipidemia (8) Peptic ulcer (9) Rheumatoid arthritis (10) Stable angina (11) Stroke (12) Vertigo Surgical Problems: (1) History of cholecystectomy (2) History of colectomy (3) Removal of pin, plate, lulu, or screw (4) S/P CABG x 3 Family History Cancer Diabetes mellitus FHx: aneurysm Heart disease Hypertension Social History Smoking Status: Never Smoker Alcohol Use: none Drug Use: none Marital Status: Housing Status: lives with significant other Occupation Status: retired Current/Historical Medications Scheduled Calcium Carbonate-Cholecalcife (Calcium 600 + D 600-200 mg-Unit), 1 TABS PO BID Cholecalciferol (Vitamin D3), 2,000 UNIT PO BID Cholestyramine Light (Prevalite), 4 GM PO BID Clopidogrel (Plavix), 75 MG PO DAILY Escitalopram Oxalate (Lexapro), 5 MG PO DAILY Gabapentin (Neurontin), 200 MG PO QAM Gabapentin (Neurontin), 100 MG PO QPM Insulin Aspart (Novolog Flexpen), 5 UNITS SQ TIDM Insulin Degludec (Tresiba Flextouch), 15 UNITS SQ QPM Isosorbide Mononitrate (Isosorbide Mononitrate ER), 30 MG PO QAM Losartan Potassium (Losartan Potassium), 50 MG PO DAILY Metoprolol Succinate (Metoprolol Succinate ER), 100 MG PO QPM Pantoprazole (Protonix), 40 MG PO QAM Prednisone (Prednisone), 5 MG PO QAM Rosuvastatin Calcium (Crestor), 40 MG PO DAILY Sulfamethoxazole-Trimethoprim (Bactrim Ds 800MG/160MG), Unknown Dose PO BID Scheduled PRN Acetaminophen (Tylenol Extra Strength), 1,000 MG PO TID PRN for Pain Azithromycin (Zithromax), 500 MG PO DAILY PRN for BEFORE DENTAL PROCEDURES Lorazepam (Ativan), 0.5 MG PO TID PRN for Anxiety Nitroglycerin (Nitrostat), 0.4 MG UT UD PRN for Chest Pain Zolpidem Tartrate (Zolpidem Tartrate), 10 MG PO HS PRN for Sleep Allergies Coded Allergies: Cefadroxil (Verified Allergy, Intermediate, UNKNOWN, 04/06/17) Clindamycin (Verified Allergy, Intermediate, UNKNOWN, 04/06/17) Levofloxacin (Verified Allergy, Intermediate, UNKNOWN, 04/06/17) Metronidazole (Verified Allergy, Intermediate, UNKNOWN, 04/06/17) Amoxicillin (Verified Adverse Reaction, Mild, diarrhea, 04/06/17) Clavulanic Acid (Verified Adverse Reaction, Mild, diarrhea, 04/06/17) Metformin (Verified Adverse Reaction, Mild, diarreha, 04/06/17) Sitagliptin (Verified Adverse Reaction, Mild, diarreha, 04/06/17) Physical Exam Vital Signs Date Time Temp Pulse Resp B/P (MAP) Pulse Ox O2 Delivery O2 Flow Rate FiO2 04/06/17 16:27 74 18 141/77 94 04/06/17 12:58 84 18 120/69 97 Room Air 04/06/17 12:04 86 04/06/17 10:42 37.3 100 18 122/76 93 Room Air Physical Exam GENERAL: Awake, alert, well-appearing, in no distress HENT: Normocephalic, atraumatic. Dry mucous membranes. EYES: Normal conjunctiva. Sclera non-icteric. NECK: Supple. No nuchal rigidity. FROM. No JVD. RESPIRATORY: Clear to auscultation. CARDIAC: Regular rate, normal rhythm. 3/6 systolic murmur. Extremities warm and well perfused. Pulses equal. ABDOMEN: Soft, non-distended. No tenderness to palpation. No rebound or guarding. No masses. RECTAL: Deferred. MUSCULOSKELETAL: Chest examination reveals no tenderness. The back is symmetrical on inspection without obvious abnormality. There is no CVA tenderness to palpation. No joint edema. LOWER EXTREMITIES: Calves are equal size bilaterally and non-tender. No edema. No discoloration. NEURO: Normal sensorium. No sensory or motor deficits noted. SKIN: No rash or jaundice noted. Medical Decision & Procedures ER Provider Diagnostic Interpretation: X-ray: Per my interpretation, radiologist review. CHEST ONE VIEW PORTABLE CLINICAL HISTORY: ABDOMINAL PAIN/GI pain COMPARISON STUDY: 01/31/2017 FINDINGS: Mild stable cardiomegaly. Prior median sternotomy. Diaphragms smooth. Lungs are clear. IMPRESSION: No acute process. The above report was generated using voice recognition software. It may contain grammatical, syntax or spelling errors. Electronically signed by: Ellis Nichols M.D. 04/06/2017 12:07 PM Dictated Date/Time: 04/06/2017 12:07 PM Laboratory Results 04/06/17 11:50 Red Blood Count 4.06, Mean Corpuscular Volume 92.4, Mean Corpuscular Hemoglobin 30.3, Mean Corpuscular Hemoglobin Concent 32.8, Mean Platelet Volume 10.2, Neutrophils (%) (Auto) 73.7, Lymphocytes (%) (Auto) 14.3, Monocytes (%) (Auto) 11.6, Eosinophils (%) (Auto) 0.0, Basophils (%) (Auto) 0.2, Neutrophils # (Auto ) 3.29, Lymphocytes # (Auto) 0.64, Monocytes # (Auto) 0.52, Eosinophils # (Auto ) 0.00, Basophils # (Auto) 0.01 04/06/17 11:50 Test 04/06/17 11:47 04/06/17 11:50 04/06/17 14:53 Urine Color YELLOW Urine Appearance CLEAR (CLEAR) Urine pH 6.5 (4.5-7.5) Urine Specific [place] 1.013 (1.000-1.030) Urine Protein NEG (NEG) Urine Glucose (UA) 1+ (NEG) Urine Ketones NEG (NEG) Urine Occult Blood NEG (NEG) Urine Nitrite NEG (NEG) Urine Bilirubin NEG (NEG) Urine Urobilinogen NEG (NEG) Urine Leukocyte Esterase NEG (NEG) White Blood Count 4.47 K/uL (4.8-10.8) Red Blood Count 4.06 M/uL (4.2-5.4) Hemoglobin 12.3 g/dL (12.0-16.0) Hematocrit 37.5 % (37-47) Mean Corpuscular Volume 92.4 fL (80-100) Mean Corpuscular Hemoglobin 30.3 pg (25-34) Mean Corpuscular Hemoglobin Concent 32.8 g/dl (32-36) Platelet Count 115 K/uL (130-400) Mean Platelet Volume 10.2 fL (7.4-10.4) Neutrophils (%) (Auto) 73.7 % Lymphocytes (%) (Auto) 14.3 % Monocytes (%) (Auto) 11.6 % Eosinophils (%) (Auto) 0.0 % Basophils (%) (Auto) 0.2 % Neutrophils # (Auto) 3.29 K/uL (1.4-6.5) Lymphocytes # (Auto) 0.64 K/uL (1.2-3.4) Monocytes # (Auto) 0.52 K/uL (0.11-0.59) Eosinophils # (Auto) 0.00 K/uL (0-0.5) Basophils # (Auto) 0.01 K/uL (0-0.2) RDW Standard Deviation 49.5 fL (36.4-46.3) RDW Coefficient of Variation 14.6 % (11.5-14.5) Immature Granulocyte % (Auto) 0.2 % Immature Granulocyte # (Auto) 0.01 K/uL (0.00-0.02) Erythrocyte Sedimentation Rate 31 mm/hr (0-21) Anion Gap 8.0 mmol/L (3-11) Est Creatinine Clear Calc Drug Dose 50.2 ml/min Estimated GFR () 67.3 Estimated GFR (Non- 58.0 BUN/Creatinine Ratio 10.3 (10-20) Calcium Level 9.3 mg/dl (8.5-10.1) Total Bilirubin 0.7 mg/dl (0.2-1) Direct Bilirubin 0.2 mg/dl (0-0.2) Aspartate Amino Transf (AST/SGOT) 38 U/L (15-37) Alanine Aminotransferase (ALT/SGPT) 41 U/L (12-78) Alkaline Phosphatase 69 U/L (45-117) Total Creatine Kinase 36 U/L (26-192) Troponin I < 0.015 ng/ml (0-0.045) C-Reactive Protein 4.43 mg/dl (0-0.29) Total Protein 7.2 gm/dl (6.4-8.2) Albumin 3.6 gm/dl (3.4-5.0) Lipase 99 U/L (73-393) Influenza Type A Antigen Neg for Influ A (NEG) Influenza Type B Antigen Neg for Influ B (NEG) Laboratory results reviewed by me Medications Administered Medications (Trade) Dose Ordered Sig/Sincere Route Start Time Stop Time Status Last Admin Dose Admin Sodium Chloride 1,000 ml @ 125 mls/hr Q8H STAT IV 04/06/17 11:23 04/06/17 16:49 DC 04/06/17 11:52 125 MLS/HR Ketorolac Tromethamine (Toradol Inj) 30 mg NOW STAT IV 04/06/17 11:31 04/06/17 11:33 DC 04/06/17 11:52 30 MG ECG Indication: nausea Rate (beats per minute): 99 Rhythm: normal sinus Findings: prolonged QT, other (normal axis) Comparison ECG Date: 01/31/17 Change: no significant change ED Course 1119: The patient was evaluated in room C9. A complete history and physical exam was performed. 1123: Ordered Sodium Chloride 1000 ml @ 125 mls/hr IV. 1131: Ordered Toradol Inj 30 mg IV. 1435: I discussed the patients case with Dr. Starr Rheumatology. She does not believe that this is related to the patients PMR. 1446: I discussed the patients case with Dr. Palak SAUCEDO. She denies having any additional concerns. They note that the patient is okay for discharge and follow up as an outpatient. Medical Decision I reviewed the patient's past medical history, medications, and the nursing notes as described above. The patient's presentation and history were concerning for Dehydration, electrolyte abnormality, PMR, pneumonia, bronchitis, UTI. The patient is an 81 y/o woman with a pmhx of PMR on prednisone who presents to the ED with the complaint of 1 month of generalized body pain per HPI. Patient also notes that she was treated for a cellulitis and related boil of her right thumb on Monday but reports after soaking her thumb she had purlent discharge release from her nail and then the boil and redness disappeared. Patient had been put on Bactrim on Monday. Patient had been told to discontinue by her doctor who prescribed the abx given the patient's sx of body pain however patient only reports that the body pain is worse since on the abx but not necessarily different. CXR negative. Labs unremarkable. ESR and CRP marginally elevated but d/w Dr. Starr, patient's driver's license examiner who confirms that this is normal for her age and does not believe sx are attributable to her PMR at this time. Rather her PMR has been well controlled on her low dose prednisone. Case d /w PA for Dr. Flores who agrees with plan to hold bactrim if there are no signs of infection. Given negative w/u and well-appearing patient no indication for further w/u at this time. Findings and plan for follow-up reviewed with patient. Patient agreeable and d/c'd per discharge instructions. Medication Reconcilliation Current Medication List: was personally reviewed by me Consults Time Called: 1430 Consulting Physician: Dr. Starr, Rheumatology Returned Call: 1435 I discussed the patients case with Dr. Starr Rheumatology. She does not believe that this is related to the patients PMR. Additional Consults: Time Called: 1443 Consulted Physician: Dr. Jaquan SAUCEDO Returned Call: 1446 Additional Comments: I discussed the patients case with Dr. Palak SAUCEDO. She denies having any additional concerns. They note that the patient is okay for discharge and follow up as an outpatient. Impression Primary Impression: Body aches Scribe Attestation The scribe's documentation has been prepared under my direction and personally reviewed by me in its entirety. I confirm that the note above accurately reflects all work, treatment, procedures, and medical decision making performed by me. Departure Information Dispostion Home / Self-Care Referrals Davion Flores M.D. (PCP) Patient Instructions ED Muscle Aching, My [facility] Additional Instructions Please follow up with your primary care physician and conveyor feeder next week as scheduled for re-evaluation. Otherwise, your exam, EKG, chest xray, and lab results did not show signs of an emergent condition at this time. Drink plenty of fluids to ensure hydration. Return to the emergency department for worsening symptoms as described in the accompanying instructions.
[2017-04-06 12:02] LABS: URINE APPEARANCE CLEAR (CLEAR); URINE BILIRUBIN NEG (NEG); URINE COLOR YELLOW; URINE NITRITE NEG (NEG); URINE PH 6.5 (4.5-7.5); URINE SPECIFIC GRAVITY 1.013 (1.000-1.030); UROBILINOGEN NEG (NEG); ZZUR CULT IF INDIC CLEAN CATCH NO
[2017-04-06 12:03] LABS: MANUAL MICROSCOPIC REQUIRED? NO; REVIEW REQ? NO
--- NOTE | 2017-04-06 12:08 | DIAGNOSTIC IMAGING REPORT ---
CHEST ONE VIEW PORTABLE CLINICAL HISTORY: ABDOMINAL PAIN/GI pain COMPARISON STUDY: 01/31/2017 FINDINGS: Mild stable cardiomegaly. Prior median sternotomy. Diaphragms smooth. Lungs are clear. IMPRESSION: No acute process. The above report was generated using voice recognition software. It may contain grammatical, syntax or spelling errors. Electronically signed by: Ellis Nichols M.D. 04/06/2017 12:07 PM Dictated Date/Time: 04/06/2017 12:07 PM
[2017-04-06 12:12] LABS: BASO % 0.2 %; BASO ABS # 0.01 K/uL (0-0.2); COMPLETE YES; HEMATOCRIT 37.5 % (37-47); IG% 0.2 %; LYMPH % 14.3 %; LYMPH ABS # 0.64 K/uL (1.2-3.4); MEAN CELL VOLUME 92.4 fL (80-100); MEAN CORPUSCULAR HEMOGLOBIN 30.3 pg (25-34); MEAN CORPUSCULAR HGB CONC 32.8 g/dl (32-36); MEAN PLATELET VOLUME 10.2 fL (7.4-10.4); MONO % 11.6 %; NEUT % 73.7 %; PLATELET COUNT 115 K/uL (130-400); RED BLOOD COUNT 4.06 M/uL (4.2-5.4); WHITE BLOOD COUNT 4.47 K/uL (4.8-10.8)
[2017-04-06 12:43] LABS: ALT/SGPT 41 U/L (12-78); BLOOD UREA NITROGEN 10 mg/dl (7-18); BUN/CREATININE RATIO 10.3 (10-20); C-REACTIVE PROTEIN 4.43 mg/dl (0-0.29); CALCIUM 9.3 mg/dl (8.5-10.1); CARBON DIOXIDE 25 mmol/L (21-32); CHLORIDE 104 mmol/L (98-107); CREATININE 0.93 mg/dl (0.60-1.20); GLUCOSE 151 mg/dl (70-99); POTASSIUM 3.9 mmol/L (3.5-5.1); SODIUM 137 mmol/L (136-145)
[2017-04-06 12:46] LABS: ALKALINE PHOSPHATASE 69 U/L (45-117); AST/SGOT 38 U/L (15-37)
[2017-04-06] MEDS ORDERED: NITR0.4S UT (14:48)
[2017-04-06] MEDS ORDERED: LORA-741 PO (16:08)
[2017-04-06 16:27] VITALS: BP 141/77; PULSE 74; O2SAT 94
[2017-04-06] MEDS ORDERED: GABA-112 PO (20:29)
== END 2017-04-06 16:28 | disposition home or self-care (01) ==
LOC: C.EDB 10:39 → C.EDC 16:28
DX: M79.1 Myalgia (principal); I25.10 Atherosclerotic heart disease of native coronary artery without angina pectoris; C18.9 Malignant neoplasm of colon, unspecified; E11.9 Type 2 diabetes mellitus without complications; I63.9 Cerebral infarction, unspecified; Z83.3 Family history of diabetes mellitus; Z82.49 Family history of ischemic heart disease and other diseases of the circulatory system; Z79.4 Long term (current) use of insulin

== ENCOUNTER → 2017-05-25 | Outpatient (CLI) | payer OTHER ==
[~2017-05-25] MED LIST changes: +CZR50 PO; +LORA-741 PO; -LOSA100T65 PO; +NITR0.4S UT; +SULF800T23 PO; -ZOLE5INJ IV
[2017-05-26 06:15] LABS: ESTIMATED AVERAGE GLUCOSE 163 mg/dl; HA1C FLAG Normal (Normal)
== END | disposition home or self-care (01) ==
LOC: C.LAB1850 14:26
PROVIDERS: ATTEND Internal Medicine Rheumatology
DX: E11.29 Type 2 diabetes mellitus with other diabetic kidney complication (principal); M35.3 Polymyalgia rheumatica

== ENCOUNTER 2017-06-11 23:18 | Emergency (ER) | payer OTHER ==
[~2017-06-11] VITALS: Ht 167.6 cm; Wt 75.7 kg
[2017-06-11 23:25] VITALS: TEMP 36.6; Ht 167.6 cm; Wt 75.7 kg
[2017-06-11] MEDS ORDERED: GI COCKTAIL PO STA (23:40)
[2017-06-11] MEDS ORDERED: FAMOTIDINE 20MG/5ML IV PUSH IV STA (23:40)
[2017-06-11] MEDS ORDERED: SODIUM CHLORIDE 0.9% 500ML 500 ML IV STA (23:40)
[2017-06-11] MEDS ORDERED: ALUMINUM/MAGNESIUM SUSP 30 ML UDC ONE (23:47)
[2017-06-11] MEDS ORDERED: LIDOCAINE HCL 2% VISC SOLN 20 ML UDC ONE (23:48)
[2017-06-11 23:50] LABS: BASO % 0.3 %; BASO ABS # 0.02 K/uL (0-0.2); EOS % 0.8 %; EOS ABS # 0.06 K/uL (0-0.5); HEMATOCRIT 41.2 % (37-47); HEMOGLOBIN 13.6 g/dL (12.0-16.0); IG# 0.01 K/uL (0.00-0.02); LYMPH % 34.8 %; MEAN CORPUSCULAR HEMOGLOBIN 30.7 pg (25-34); MEAN PLATELET VOLUME 10.1 fL (7.4-10.4); MONO % 13.5 %; MONO ABS # 1.05 K/uL (0.11-0.59); NEUT % 50.5 %; NEUT ABS # 3.91 K/uL (1.4-6.5); PLATELET COUNT 165 K/uL (130-400); RED CELL DISTRIBUTION WIDTH CV 15.2 % (11.5-14.5); RED CELL DISTRIBUTION WIDTH SD 51.6 fL (36.4-46.3); WHITE BLOOD COUNT 7.75 K/uL (4.8-10.8)
[2017-06-11 23:55] VITALS: O2SAT 97
[2017-06-12 00:17] LABS: ALKALINE PHOSPHATASE 90 U/L (45-117); ALT/SGPT 50 U/L (12-78); AST/SGOT 38 U/L (15-37); BLOOD UREA NITROGEN 27 mg/dl (7-18); CALCIUM 9.8 mg/dl (8.5-10.1); CARBON DIOXIDE 29 mmol/L (21-32); CREATININE 1.32 mg/dl (0.60-1.20); GLUCOSE 120 mg/dl (70-99); LIPASE 161 U/L (73-393); POTASSIUM 4.2 mmol/L (3.5-5.1); SODIUM 139 mmol/L (136-145); TOTAL PROTEIN 7.9 gm/dl (6.4-8.2)
[2017-06-12] MEDS ORDERED: PRD/1 PO (00:18)
[2017-06-12] MEDS ORDERED: LXP10 PO (00:18)
[2017-06-12] MEDS ORDERED: MIRT15TA3 PO (00:18)
[2017-06-12 01:18] VITALS: BP 168/82; PULSE 61; O2SAT 95
--- NOTE | 2017-06-12 01:18 | EMERGENCY ROOM VISIT NOTE ---
History Report prepared by Ivana: Garcia Brito Under the Supervision of: Dr. Ritesh Lee M.D. First contact with patient: 23:31 Chief Complaint: CHEST PAIN Stated Complaint: CHEST PAINS History of Present Illness The patient is a 81 year old female who presents to the Emergency Room with complaints of constant chest pain beginning 6.5 hours ago. She states that she was drinking some tea when she felt it "go down the wrong tube". She states that she had felt pain in her chest ever since. The patient has a history of CABG. She was able to fall asleep tonight, but woke up with her pain again. Her pain has improved since it began. The patient took Nitroglycerin which improved her pain. She denies fevers, chills, cough, congestion, vomiting, diarrhea, or urinary symptoms. She is on Plavix. Source of History: patient Onset: 6.5 hours ago Position: chest Timing: constant Modifying Factors (Relieving): other (NTG) Associated Symptoms: No fevers, No chills, No cough, No vomiting, No diarrhea, No urinary symptoms Note: The patient denies congestion. Review of Systems See HPI for pertinent positives and negatives. A total of ten systems were reviewed and were otherwise negative. Past Medical & Surgical Medical Problems: (1) CAD (coronary artery disease) (2) Carcinoma of colon (3) Colectomy (4) Coronary artery disease involving [place] coronary artery (5) Diabetes (6) Dizziness (7) Familial combined hyperlipidemia (8) Peptic ulcer (9) Rheumatoid arthritis (10) Stable angina (11) Stroke (12) Vertigo Surgical Problems: (1) History of cholecystectomy (2) History of colectomy (3) Removal of pin, plate, lulu, or screw (4) S/P CABG x 3 Family History Cancer Diabetes mellitus FHx: aneurysm Heart disease Hypertension Social History Smoking Status: Never Smoker Alcohol Use: none Drug Use: none Marital Status: Housing Status: lives with significant other Occupation Status: retired Current/Historical Medications Scheduled Calcium Carbonate-Cholecalcife (Calcium 600 + D 600-200 mg-Unit), 1 TABS PO BID Cholecalciferol (Vitamin D3), 2,000 UNIT PO BID Cholestyramine Light (Prevalite), 4 GM PO BID Clopidogrel (Plavix), 75 MG PO DAILY Escitalopram Oxalate (Escitalopram Oxalate), 10 MG PO DAILY Famotidine (Pepcid), 20 MG PO BID Gabapentin (Neurontin), 200 MG PO QAM Gabapentin (Neurontin), 100 MG PO QPM Insulin Aspart (Novolog Flexpen), 5 UNITS SQ TIDM Insulin Degludec (Tresiba Flextouch), 15 UNITS SQ QPM Isosorbide Mononitrate (Isosorbide Mononitrate ER), 30 MG PO QAM Losartan Potassium (Losartan Potassium), 50 MG PO DAILY Metoprolol Succinate (Metoprolol Succinate ER), 100 MG PO QPM Mirtazapine (Remeron), 7.5 MG PO HS Pantoprazole (Protonix), 40 MG PO QAM Prednisone (Prednisone), 4 MG PO DAILY Rosuvastatin Calcium (Crestor), 40 MG PO DAILY Zolpidem Tartrate (Zolpidem Tartrate), 10 MG PO HS Scheduled PRN Acetaminophen (Tylenol Extra Strength), 1,000 MG PO TID PRN for Pain Azithromycin (Zithromax), 500 MG PO DAILY PRN for BEFORE DENTAL PROCEDURES Lorazepam (Ativan), 0.5 MG PO TID PRN for Anxiety Nitroglycerin (Nitrostat), 0.4 MG UT UD PRN for Chest Pain Allergies Coded Allergies: Cefadroxil (Verified Allergy, Intermediate, UNKNOWN, 06/12/17) Clindamycin (Verified Allergy, Intermediate, UNKNOWN, 06/12/17) Levofloxacin (Verified Allergy, Intermediate, UNKNOWN, 06/12/17) Metronidazole (Verified Allergy, Intermediate, UNKNOWN, 06/12/17) Amoxicillin (Verified Adverse Reaction, Mild, diarrhea, 06/12/17) Clavulanic Acid (Verified Adverse Reaction, Mild, diarrhea, 06/12/17) Metformin (Verified Adverse Reaction, Mild, diarreha, 06/12/17) Sitagliptin (Verified Adverse Reaction, Mild, diarreha, 06/12/17) Physical Exam Vital Signs Date Time Temp Pulse Resp B/P (MAP) Pulse Ox O2 Delivery O2 Flow Rate FiO2 06/12/17 01:18 61 18 168/82 95 Room Air 06/12/17 00:25 64 18 171/84 96 Room Air 06/11/17 23:55 97 Room Air 06/11/17 23:43 67 06/11/17 23:33 Room Air 06/11/17 23:25 36.6 73 18 156/86 98 Room Air Physical Exam GENERAL: Awake, alert, well-appearing, in no distress HENT: Normocephalic, atraumatic. Oropharynx unremarkable. EYES: Normal conjunctiva. Sclera non-icteric. NECK: Supple. No nuchal rigidity. FROM. No JVD. RESPIRATORY: Clear to auscultation. CARDIAC: Regular rate, normal rhythm. 3/6 systolic murmur. Extremities warm and well perfused. Pulses equal. ABDOMEN: Soft, non-distended. Epigastric tenderness to palpation. No rebound or guarding. No masses. RECTAL: Deferred. MUSCULOSKELETAL: Chest examination reveals no tenderness. The back is symmetrical on inspection without obvious abnormality. There is no CVA tenderness to palpation. No joint edema. LOWER EXTREMITIES: Calves are equal size bilaterally and non-tender. No edema. No discoloration. NEURO: Normal sensorium. No sensory or motor deficits noted. SKIN: No rash or jaundice noted. Medical Decision & Procedures ER Provider Diagnostic Interpretation: One View Chest X-ray interpreted by me: no gross infiltrates. Cardiomegaly Laboratory Results 06/11/17 23:35 Red Blood Count 4.43, Mean Corpuscular Volume 93.0, Mean Corpuscular Hemoglobin 30.7, Mean Corpuscular Hemoglobin Concent 33.0, Mean Platelet Volume 10.1, Neutrophils (%) (Auto) 50.5, Lymphocytes (%) (Auto) 34.8, Monocytes (%) (Auto) 13.5, Eosinophils (%) (Auto) 0.8, Basophils (%) (Auto) 0.3, Neutrophils # (Auto ) 3.91, Lymphocytes # (Auto) 2.70, Monocytes # (Auto) 1.05, Eosinophils # (Auto ) 0.06, Basophils # (Auto) 0.02 06/11/17 23:35 Test 06/11/17 23:35 White Blood Count 7.75 K/uL (4.8-10.8) Red Blood Count 4.43 M/uL (4.2-5.4) Hemoglobin 13.6 g/dL (12.0-16.0) Hematocrit 41.2 % (37-47) Mean Corpuscular Volume 93.0 fL (80-100) Mean Corpuscular Hemoglobin 30.7 pg (25-34) Mean Corpuscular Hemoglobin Concent 33.0 g/dl (32-36) Platelet Count 165 K/uL (130-400) Mean Platelet Volume 10.1 fL (7.4-10.4) Neutrophils (%) (Auto) 50.5 % Lymphocytes (%) (Auto) 34.8 % Monocytes (%) (Auto) 13.5 % Eosinophils (%) (Auto) 0.8 % Basophils (%) (Auto) 0.3 % Neutrophils # (Auto) 3.91 K/uL (1.4-6.5) Lymphocytes # (Auto) 2.70 K/uL (1.2-3.4) Monocytes # (Auto) 1.05 K/uL (0.11-0.59) Eosinophils # (Auto) 0.06 K/uL (0-0.5) Basophils # (Auto) 0.02 K/uL (0-0.2) RDW Standard Deviation 51.6 fL (36.4-46.3) RDW Coefficient of Variation 15.2 % (11.5-14.5) Immature Granulocyte % (Auto) 0.1 % Immature Granulocyte # (Auto) 0.01 K/uL (0.00-0.02) Anion Gap 6.0 mmol/L (3-11) Est Creatinine Clear Calc Drug Dose 35.3 ml/min Estimated GFR () 44.1 Estimated GFR (Non- 38.0 BUN/Creatinine Ratio 20.3 (10-20) Calcium Level 9.8 mg/dl (8.5-10.1) Total Bilirubin 0.4 mg/dl (0.2-1) Direct Bilirubin < 0.1 mg/dl (0-0.2) Aspartate Amino Transf (AST/SGOT) 38 U/L (15-37) Alanine Aminotransferase (ALT/SGPT) 50 U/L (12-78) Alkaline Phosphatase 90 U/L (45-117) Troponin I < 0.015 ng/ml (0-0.045) Total Protein 7.9 gm/dl (6.4-8.2) Albumin 4.0 gm/dl (3.4-5.0) Lipase 161 U/L (73-393) Chemistry Specimen Hemolysis Laboratory results reviewed by me Medications Administered Medications (Trade) Dose Ordered Sig/Sincere Route Start Time Stop Time Status Last Admin Dose Admin Sodium Chloride 500 ml @ 999 mls/hr Q31M STAT IV 06/11/17 23:40 06/12/17 00:10 DC 06/11/17 23:52 999 MLS/HR Famotidine (Pepcid 20mg Iv Push) 20 mg NOW STAT IV 06/11/17 23:40 06/11/17 23:43 DC 06/11/17 23:50 20 MG Al Hydroxide/Mg Hydroxide (Maalox Susp) 30 ml STK-MED ONCE .ROUTE 06/11/17 23:47 06/11/17 23:48 DC 06/11/17 23:50 30 ML Lidocaine HCl (Viscous Lidocaine 2% Soln) 20 ml STK-MED ONCE .ROUTE 06/11/17 23:48 06/11/17 23:49 DC 06/11/17 23:50 10 ML ECG Indication: chest pain Rate (beats per minute): 69 Rhythm: normal sinus Findings: no acute ischemic change, other (Normal axis. ) ED Course 2336: The patient was evaluated in room A9B. A complete history and physical exam was performed. 0111: I reevaluated the patient. Discussed results and discharge instructions: she verbalized understanding and agreement. The patient is ready for discharge. Medical Decision I reviewed the patient's past medical history, medications, and the nursing notes as described above. The patient's presentation and history were concerning for etiologies such as cardiac ischemia, aortic dissection, pulmonary embolism, pneumonia, pneumothorax , musculoskeletal, infections, pericarditis, myocarditis, esophageal rupture, gastrointestinal, as well as others were entertained. The patient is 81-year-old woman with a past medical history of CAD status post CABG who presents emergency Department with constant epigastric discomfort/ chest pain after nearly choking when she was drinking tea around 5 PM this evening per hpi. On arrival, the patient is in no acute distress, afebrile stable vital signs. On exam has mild epigastric tenderness to palpation without any peritoneal signs. EKG is unremarkable out evidence of acute ischemia. Troponin approximately 6 hours from onset of constant symptoms negative as well thus making ACS not likely despite her history of CAD. Chest x -ray unremarkable as well. WBC within normal limits. Cr. is 1.3 which is up from recent however patient has been similar in the past. BUN/Cr > 20 suggesting likely mild dehydration. Was given IV fluids and IV Pepcid and GI cocktail with continued improvement in her symptoms. Patient will follow up with her PCP on Monday for reevaluation and strict return instructions were given. Findings and plan for follow-up reviewed with patient. Patient agreeable and d/c'd per discharge instructions. Medication Reconcilliation Current Medication List: was personally reviewed by me Blood Pressure Screening Patient's blood pressure: Elevated blood pressure Blood pressure disposition: Referred to PCP Impression Primary Impression: Substernal chest pain Additional Impression: Gastritis Scribe Attestation The scribe's documentation has been prepared under my direction and personally reviewed by me in its entirety. I confirm that the note above accurately reflects all work, treatment, procedures, and medical decision making performed by me. Departure Information Dispostion Home / Self-Care Prescriptions Famotidine (PEPCID) 20 Mg Tab 20 MG PO BID for 10 Days, #20 TAB Prov: Ritesh Lee M.D. 06/12/17 Referrals Davion Flores M.D. (PCP) Patient Instructions ED Chest Pain Atypical Unkn Cause, ED PUD Vs Gastritis, My [facility] Additional Instructions Please follow up with your primary care physician on Monday for re-evaluation and to repeat your kidney function tests as your labs today showed mild dehydration. Your symptoms were most likely due to reflux or gastritis. Otherwise, your exam, EKG, chest xray, and lab results did not show signs of an emergent condition at this time. Take Pepcid in addition to your Protonix for additional acid reduction. Return to the emergency department for worsening symptoms as described in the accompanying instructions. Problem Qualifiers
[2017-06-12] MEDS ORDERED: FAMO20TA9 PO (01:20)
--- NOTE | 2017-06-12 10:34 | DIAGNOSTIC IMAGING REPORT ---
SINGLE VIEW CHEST CLINICAL HISTORY: Atypical chest pain. FINDINGS: An AP, portable, upright chest radiograph is compared to study dated 04/06/2017. The examination is mildly degraded by portable technique and patient rotation. The patient is status post midline sternotomy cardiac valve surgery. The heart is enlarged and there is atherosclerotic calcification of the thoracic aorta. The pulmonary vasculature is noncongested. Chronic interstitial thickening is similar to previous. Bibasilar atelectasis is observed. No airspace consolidation, large pleural effusion, or pneumothorax is seen. The skeletal structures are osteopenic. The bony thorax is grossly intact. Calcific tendinopathy is noted in left shoulder. IMPRESSION: Cardiomegaly with no acute cardiopulmonary abnormality. Electronically signed by: Efren Taylor M.D. 06/12/2017 10:32 AM Dictated Date/Time: 06/12/2017 10:31 AM
[2017-07-17] MEDS ORDERED: DOXY100T PO (00:18)
[2017-07-19] MEDS ORDERED: CRFUDL PO (14:12)
[2017-09-20] MEDS ORDERED: IMDSR30 PO (15:40)
[2017-09-29] MEDS ORDERED: ISOS30TA35 PO (13:51)
[2017-09-29] MEDS ORDERED: INSU1INJ33 SQ (15:01)
[2017-09-29] MEDS ORDERED: OXYC-90 PO (16:14)
== END 2017-06-12 01:33 | disposition home or self-care (01) ==
LOC: C.EDB 23:19 → C.EDA 06-12 01:33
DX: R07.2 Precordial pain (principal); K29.70 Gastritis, unspecified, without bleeding; I25.10 Atherosclerotic heart disease of native coronary artery without angina pectoris; E11.9 Type 2 diabetes mellitus without complications; M06.9 Rheumatoid arthritis, unspecified; E78.4 Other hyperlipidemia; K27.9 Peptic ulcer, site unspecified, unspecified as acute or chronic, without hemorrhage or perforation; Z85.038 Personal history of other malignant neoplasm of large intestine; Z86.73 Personal history of transient ischemic attack (TIA), and cerebral infarction without residual deficits; Z95.1 Presence of aortocoronary bypass graft; Z90.49 Acquired absence of other specified parts of digestive tract; Z98.890 Other specified postprocedural states; Z83.3 Family history of diabetes mellitus; Z82.49 Family history of ischemic heart disease and other diseases of the circulatory system; Z79.02 Long term (current) use of antithrombotics/antiplatelets; Z79.4 Long term (current) use of insulin; Z79.899 Other long term (current) drug therapy

== ENCOUNTER → 2017-06-19 | Outpatient (CLI) | payer OTHER ==
[~2017-06-19] MED LIST changes: -ESCI1TAB6 PO; +FAMO20TA9 PO; +LXP10 PO; +MIRT15TA3 PO; +PRD/1 PO; -PRED-301 PO; -SULF800T23 PO
--- NOTE | 2017-06-21 14:48 | POLYSOMNOGRAPH REPORT ---
CLINICAL DATA: An 81-year-old female with BMI of 27.5, who is referred by Dr. Flores. She has had a history of a stroke and has not slept well since then. Her [place] sleepiness score is 2/24. On the evening of 06/19/2017, a home sleep apnea test was performed using a [employer] type 3 monitor. RECORDING RESULTS: Total recording time was 10 hours. The patient's monitoring time and estimated sleep time was 10 hours. RESPIRATORY DATA: Moderate sleep apnea was documented. The MARY was 17.3. There were 50 obstructive, 10 mixed and 5 central apneic episodes. There were 108 hypopneic episodes. The longest respiratory event was 46 seconds. OXIMETRY DATA: Nocturnal hypoxemia was seen. Oxygen madhu was 82%. Mean saturation was 92%. Time below 89% was 10 minutes. HEART RATE DATA: Heart rates ranged from 62 to 48 beats per minute. SNORING DATA: Snoring was recorded throughout the night. PREDATORY ANIMAL HUNTER'S COMMENTS: The patient did not think that she slept much during the test. Snoring was present throughout the night and apneas and hypopneas were seen. IMPRESSION: Mild sleep apnea/hypopnea with an MARY of 17.3. RECOMMENDATIONS: The patient may benefit from a repeat sleep study with CPAP or sleep medicine consultation. Clinical correlation is needed. DINA
== END | disposition home or self-care (01) ==
LOC: C.NEUR 09:55
PROVIDERS: ATTEND Physician Assistant
DX: G47.19 Other hypersomnia (principal)

== ENCOUNTER → 2017-06-20 | Outpatient (CLI) | payer OTHER ==
[2017-06-20 16:16] LABS: BLOOD UREA NITROGEN 24 mg/dl (7-18); CALCIUM 9.8 mg/dl (8.5-10.1); CARBON DIOXIDE 27 mmol/L (21-32); CREATININE 1.08 mg/dl (0.60-1.20); GLUCOSE 295 mg/dl (70-99); SODIUM 134 mmol/L (136-145)
== END | disposition home or self-care (01) ==
LOC: C.LAB1850 14:35
PROVIDERS: ATTEND Physician Assistant Medical
DX: Z79.52 Long term (current) use of systemic steroids (principal); M35.3 Polymyalgia rheumatica; N18.3 Chronic kidney disease, stage 3 (moderate)

== ENCOUNTER 2017-06-25 09:37 | Emergency (ER) | payer OTHER ==
[~2017-06-25] VITALS: Ht 167.6 cm; Wt 68.0 kg
[~2017-06-25 09:37] MED LIST changes: -FAMO20TA9 PO
[2017-06-25 09:44] VITALS: TEMP 36.6; O2SAT 97; Ht 167.6 cm; Wt 68.0 kg
[2017-06-25 10:19] LABS: BASO % 0.1 %; BASO ABS # 0.01 K/uL (0-0.2); EOS % 0.7 %; EOS ABS # 0.05 K/uL (0-0.5); HEMATOCRIT 40.7 % (37-47); HEMOGLOBIN 13.4 g/dL (12.0-16.0); IG# 0.02 K/uL (0.00-0.02); LYMPH % 23.2 %; LYMPH ABS # 1.73 K/uL (1.2-3.4); MEAN CELL VOLUME 92.9 fL (80-100); MEAN CORPUSCULAR HEMOGLOBIN 30.6 pg (25-34); MEAN CORPUSCULAR HGB CONC 32.9 g/dl (32-36); MEAN PLATELET VOLUME 9.8 fL (7.4-10.4); MONO % 9.1 %; MONO ABS # 0.68 K/uL (0.11-0.59); NEUT % 66.6 %; NEUT ABS # 4.97 K/uL (1.4-6.5); PLATELET COUNT 146 K/uL (130-400); RED CELL DISTRIBUTION WIDTH CV 15.3 % (11.5-14.5); RED CELL DISTRIBUTION WIDTH SD 51.9 fL (36.4-46.3); WHITE BLOOD COUNT 7.46 K/uL (4.8-10.8)
[2017-06-25 10:24] LABS: INR 1.1 (0.9-1.1); PTT PATIENT 26.3 SECONDS (21.0-31.0)
[2017-06-25 10:28] LABS: ALBUMIN 3.7 gm/dl (3.4-5.0); ALT/SGPT 27 U/L (12-78); BLOOD UREA NITROGEN 14 mg/dl (7-18); CALCIUM 9.9 mg/dl (8.5-10.1); CARBON DIOXIDE 27 mmol/L (21-32); CREATININE 0.92 mg/dl (0.60-1.20); GLUCOSE 131 mg/dl (70-99); LIPASE 100 U/L (73-393); POTASSIUM 4.1 mmol/L (3.5-5.1); SODIUM 139 mmol/L (136-145)
[2017-06-25] MEDS ORDERED: MIRT15TA2 PO (10:30)
[2017-06-25 10:34] LABS: ALKALINE PHOSPHATASE 58 U/L (45-117); AST/SGOT 26 U/L (15-37); TOTAL PROTEIN 7.1 gm/dl (6.4-8.2)
--- NOTE | 2017-06-25 10:35 | DIAGNOSTIC IMAGING REPORT ---
CHEST ONE VIEW PORTABLE HISTORY: Atypical CHEST PAIN COMPARISON: Chest 06/11/2017. FINDINGS: The heart remains mildly enlarged. There are post anatomy changes and an aortic valve prosthesis. The lungs are clear. No pleural effusions. No pneumothorax. No evidence for pulmonary edema. IMPRESSION: No significant change compared to the prior study. No acute process. Stable mild cardiomegaly. Electronically signed by: Marcus Jacob M.D. 06/25/2017 10:34 AM Dictated Date/Time: 06/25/2017 10:33 AM
--- NOTE | 2017-06-25 12:09 | EMERGENCY ROOM VISIT NOTE ---
History Report prepared by Ivana: Margie Queen Under the Supervision of: Dr. Juan Luis Cabello M.D. First contact with patient: 09:53 Chief Complaint: CHEST PAIN Stated Complaint: CHEST PAIN History of Present Illness The patient is an 81 year old white female with a past medical history of polymyalgia, CAD, colon cancer, diabetes, stroke, arthritis, hyperlipidemia, and valve replacement who presents to the ED with a cc of an episode of chest pain beginning this morning. Positive body aches. She reports that she is unsure if her pains are from her polymyalgia. Negative shortness of breath, cough, fevers, chills, swelling in legs, being worse with exertion, nausea, vomiting, and abnormal bowel movements. She notes that she got a flu shot this year and that she takes Plavix. Source of History: patient Onset: this morning Position: chest Quality: ache Timing: other (episode) Associated Symptoms: No fevers, No chills, No cough, No SOB, No nausea, No vomiting Note: The patient complains of body aches. The patient denies swelling in legs, being worse with exertion, and abnormal bowel movements. Review of Systems See HPI for pertinent positives and negatives. A total of ten systems were reviewed and were otherwise negative. Past Medical & Surgical Medical Problems: (1) CAD (coronary artery disease) (2) Carcinoma of colon (3) Colectomy (4) Coronary artery disease involving [place] coronary artery (5) Diabetes (6) Dizziness (7) Familial combined hyperlipidemia (8) Peptic ulcer (9) Rheumatoid arthritis (10) Stable angina (11) Stroke (12) Vertigo Surgical Problems: (1) History of cholecystectomy (2) History of colectomy (3) Removal of pin, plate, lulu, or screw (4) S/P CABG x 3 Family History Cancer Diabetes mellitus FHx: aneurysm Heart disease Hypertension Social History Smoking Status: Never Smoker Alcohol Use: none Drug Use: none Marital Status: Housing Status: lives with significant other Occupation Status: retired Current/Historical Medications Scheduled Calcium Carbonate-Cholecalcife (Calcium 600 + D 600-200 mg-Unit), 1 TABS PO BID Cholecalciferol (Vitamin D3), 2,000 UNIT PO BID Clopidogrel (Plavix), 75 MG PO DAILY Gabapentin (Neurontin), 200 MG PO QAM Gabapentin (Neurontin), 100 MG PO QPM Insulin Aspart (Novolog Flexpen), 5 UNITS SQ TIDM Insulin Degludec (Tresiba Flextouch), 15 UNITS SQ QPM Isosorbide Mononitrate (Isosorbide Mononitrate ER), 30 MG PO QAM Losartan Potassium (Losartan Potassium), 50 MG PO DAILY Metoprolol Succinate (Metoprolol Succinate ER), 100 MG PO QPM Mirtazapine Soltab (Remeron Soltab), 7.5 MG PO HS Pantoprazole (Protonix), 40 MG PO QAM Prednisone (Prednisone), 4 MG PO DAILY Rosuvastatin Calcium (Crestor), 40 MG PO DAILY Zolpidem Tartrate (Zolpidem Tartrate), 10 MG PO HS Scheduled PRN Acetaminophen (Tylenol Extra Strength), 1,000 MG PO TID PRN for Pain Azithromycin (Zithromax), 500 MG PO DAILY PRN for BEFORE DENTAL PROCEDURES Nitroglycerin (Nitrostat), 0.4 MG UT UD PRN for Chest Pain Allergies Coded Allergies: Cefadroxil (Verified Allergy, Intermediate, UNKNOWN, 06/25/17) Clindamycin (Verified Allergy, Intermediate, UNKNOWN, 06/25/17) Levofloxacin (Verified Allergy, Intermediate, UNKNOWN, 06/25/17) Metronidazole (Verified Allergy, Intermediate, UNKNOWN, 06/25/17) Amoxicillin (Verified Adverse Reaction, Mild, diarrhea, 06/25/17) Clavulanic Acid (Verified Adverse Reaction, Mild, diarrhea, 06/25/17) Metformin (Verified Adverse Reaction, Mild, diarreha, 06/25/17) Sitagliptin (Verified Adverse Reaction, Mild, diarreha, 06/25/17) Physical Exam Vital Signs Date Time Temp Pulse Resp B/P (MAP) Pulse Ox O2 Delivery O2 Flow Rate FiO2 06/25/17 09:51 76 06/25/17 09:44 36.6 75 16 139/72 95 Room Air 06/25/17 09:44 97 Room Air 06/25/17 09:44 97 Room Air Physical Exam GENERAL: Awake, alert, well-appearing, NAD HENT: Normocephalic, atraumatic. EYES: Normal conjunctiva. Sclera non-icteric. NECK: Supple. No nuchal rigidity. FROM. RESPIRATORY: CTAB, no rhonchi, wheezing, crackles CARDIAC: RRR, no MRG ABDOMEN: Soft, NTND, BS+ MSK: No chest wall TTP, no LE edema NEURO: GCS 15, CN 2-12 intact, moves all 4s on command SKIN: No rash or jaundice noted. Medical Decision & Procedures ER Provider Diagnostic Interpretation: Radiology results as stated below per my review and radiologist interpretation: CHEST ONE VIEW PORTABLE HISTORY: Atypical CHEST PAIN COMPARISON: Chest 06/11/2017. FINDINGS: The heart remains mildly enlarged. There are post anatomy changes and an aortic valve prosthesis. The lungs are clear. No pleural effusions. No pneumothorax. No evidence for pulmonary edema. IMPRESSION: No significant change compared to the prior study. No acute process. Stable mild cardiomegaly. Electronically signed by: Marcus Jacob M.D. 06/25/2017 10:34 AM Dictated Date/Time: 06/25/2017 10:33 AM Laboratory Results 06/25/17 10:00 Red Blood Count 4.38, Mean Corpuscular Volume 92.9, Mean Corpuscular Hemoglobin 30.6, Mean Corpuscular Hemoglobin Concent 32.9, Mean Platelet Volume 9.8, Neutrophils (%) (Auto) 66.6, Lymphocytes (%) (Auto) 23.2, Monocytes (%) (Auto) 9.1, Eosinophils (%) (Auto) 0.7, Basophils (%) (Auto) 0.1, Neutrophils # (Auto) 4.97, Lymphocytes # (Auto) 1.73, Monocytes # (Auto) 0.68, Eosinophils # (Auto) 0.05, Basophils # (Auto) 0.01 06/25/17 10:00 Test 06/25/17 10:00 White Blood Count 7.46 K/uL (4.8-10.8) Red Blood Count 4.38 M/uL (4.2-5.4) Hemoglobin 13.4 g/dL (12.0-16.0) Hematocrit 40.7 % (37-47) Mean Corpuscular Volume 92.9 fL (80-100) Mean Corpuscular Hemoglobin 30.6 pg (25-34) Mean Corpuscular Hemoglobin Concent 32.9 g/dl (32-36) Platelet Count 146 K/uL (130-400) Mean Platelet Volume 9.8 fL (7.4-10.4) Neutrophils (%) (Auto) 66.6 % Lymphocytes (%) (Auto) 23.2 % Monocytes (%) (Auto) 9.1 % Eosinophils (%) (Auto) 0.7 % Basophils (%) (Auto) 0.1 % Neutrophils # (Auto) 4.97 K/uL (1.4-6.5) Lymphocytes # (Auto) 1.73 K/uL (1.2-3.4) Monocytes # (Auto) 0.68 K/uL (0.11-0.59) Eosinophils # (Auto) 0.05 K/uL (0-0.5) Basophils # (Auto) 0.01 K/uL (0-0.2) RDW Standard Deviation 51.9 fL (36.4-46.3) RDW Coefficient of Variation 15.3 % (11.5-14.5) Immature Granulocyte % (Auto) 0.3 % Immature Granulocyte # (Auto) 0.02 K/uL (0.00-0.02) Prothrombin Time 11.4 SECONDS (9.0-12.0) Prothromb Time International Ratio 1.1 (0.9-1.1) Activated Partial Thromboplast Time 26.3 SECONDS (21.0-31.0) Partial Thromboplastin Ratio 1.0 Anion Gap 8.0 mmol/L (3-11) Est Creatinine Clear Calc Drug Dose 45.6 ml/min Estimated GFR () 68.2 Estimated GFR (Non- 58.8 BUN/Creatinine Ratio 15.3 (10-20) Calcium Level 9.9 mg/dl (8.5-10.1) Magnesium Level 2.1 mg/dl (1.8-2.4) Total Bilirubin 0.6 mg/dl (0.2-1) Direct Bilirubin 0.1 mg/dl (0-0.2) Aspartate Amino Transf (AST/SGOT) 26 U/L (15-37) Alanine Aminotransferase (ALT/SGPT) 27 U/L (12-78) Alkaline Phosphatase 58 U/L (45-117) Troponin I < 0.015 ng/ml (0-0.045) Pro-B-Type Natriuretic Peptide 1219 pg/ml (0-1800) Total Protein 7.1 gm/dl (6.4-8.2) Albumin 3.7 gm/dl (3.4-5.0) Lipase 100 U/L (73-393) Laboratory results reviewed by me ECG Indication: chest pain Rate (beats per minute): 69 Rhythm: normal sinus Findings: ST depression (V4 and V5), T-wave inversion (avL), other (normal intervals) Comparison ECG Date: 06/11/2017 Change: no significant change ED Course 1003: The patient was evaluated in room C10. A complete history and physical exam was performed. 1111: I discussed the patient's case with Dr. Acosta- Cardiology. He states that it does not sound like a cardiac issue and she can follow up in his office. 1150: I reevaluated the patient. Discussed results and discharge instructions: she verbalized understanding and agreement. The patient is ready for discharge. Medical Decision The patient is an 81 year old white female with a past medical history of polymyalgia, CAD, colon cancer, diabetes, stroke, arthritis, hyperlipidemia, and valve replacement who presents to the ED with a cc of an episode of chest pain beginning this morning. Etiologies such as cardiac ischemia, aortic dissection, pulmonary embolism, pneumonia, pneumothorax, musculoskeletal, infections, pericarditis, myocarditis , esophageal rupture, gastrointestinal, as well as others were entertained. Patient was seen and evaluated the bedside. Patient was complaining of just not feeling well. Patient's initial complaint was some sort of chest pain however the patient is fairly nondescript with regard to chest pain. Patient does state that she just doesn't feel well. Patient denies any other symptoms. Patient thinks that her chest pain is reproducible and likely related polymyalgia which has happened in the past. Patient did have blood work completed along with EKG, troponin, chest x-ray. On exam the patient does have reproducible left sided chest wall pain. Patient denies any exertional symptoms. Patient's EKG did show some lateral depressions and T-wave WI. I did speak with the liaison officer concrete stone finishing supervisor who agreed that the patient has a normal troponin, unchanged EKG and does not have exertional symptoms and this is less likely to be ACS. Given the patient's history and physical exam there is really no evidence to point toward any sort of a clot in the lungs. Patient' s chest x-ray did show stable cardiac megaly but no overt infection or other concerning etiology of her pain/not feeling well. The patient was deemed suitable for outpatient follow-up and treatment. Patient was told findings and was discharged home.Patient was given strict follow-up, discharge, and return precautions. All questions were answered. Patient was deemed suitable for outpatient follow-up at this time. Patient agreed with the plan of care and was safely discharged home. The chart was completed utilizing [employer] voice recognition software. Grammatical errors, random word insertions, pronoun errors, and incomplete sentences are an occasional consequence of this system due to software limitations, ambient noise, and hardware issues. Any formal questions or concerns about the content, text, or information contained within the body of this dictation should be directly addressed to the physician for clarification. Medication Reconcilliation Current Medication List: was personally reviewed by me Blood Pressure Screening Patient's blood pressure: Normal blood pressure Blood pressure disposition: Did not require urgent referral Consults Time Called: 1110 Consulting Physician: Dr. Jerome Puri Returned Call: 1111 I discussed the patient's case with Dr. Jerome Puri. He states that it does not sound like a cardiac issue and she can follow up in his office. Impression Primary Impression: Feeling unwell Scribe Attestation The scribe's documentation has been prepared under my direction and personally reviewed by me in its entirety. I confirm that the note above accurately reflects all work, treatment, procedures, and medical decision making performed by me. Departure Information Dispostion Home / Self-Care Referrals Davion Flores M.D. (PCP) Forms Call Back Authorization, HOME CARE DOCUMENTATION FORM, IMPORTANT VISIT INFORMATION Patient Instructions My [facility] Additional Instructions Please return to the emergency department if you have worsening or recurrent symptoms not amenable to at-home treatment. Please call for a follow-up appointment with her primary care physician. Please take your medications as prescribed. If you have other concerns and/or complaints please feel free to also call your primary care physician's office or return the ED for further evaluation, management, and treatment. You may take tylenol 650 mg every 6 hours as needed for pain. You may take motrin and tylenol separately or at the same time. Take your medications as prescribed. You have been examined and treated today on an emergency basis only. This is not a substitute for, or an effort to provide, complete comprehensive medical care. It is impossible to recognize and treat all injuries or illnesses in a single emergency department visit. It is therefore important that you follow up closely with [facility], your PCP, and/or your specialist(s). Call as soon as possible for an appointment. Thank you for your time and consideration. I look forward to speaking with you again soon. Please don't hesitate to call us if you have any questions.
[2017-06-25 12:32] VITALS: BP 139/75; PULSE 80; O2SAT 95
== END 2017-06-25 12:34 | disposition home or self-care (01) ==
LOC: C.EDB 09:39 → C.EDC 12:34
DX: R07.9 Chest pain, unspecified (principal); I25.10 Atherosclerotic heart disease of native coronary artery without angina pectoris; Z85.038 Personal history of other malignant neoplasm of large intestine; E11.9 Type 2 diabetes mellitus without complications; Z86.73 Personal history of transient ischemic attack (TIA), and cerebral infarction without residual deficits; M19.90 Unspecified osteoarthritis, unspecified site; E78.4 Other hyperlipidemia; Z95.2 Presence of prosthetic heart valve; M35.3 Polymyalgia rheumatica; Z90.49 Acquired absence of other specified parts of digestive tract; M06.9 Rheumatoid arthritis, unspecified; Z95.1 Presence of aortocoronary bypass graft; Z98.890 Other specified postprocedural states; Z83.3 Family history of diabetes mellitus; Z82.49 Family history of ischemic heart disease and other diseases of the circulatory system; Z79.52 Long term (current) use of systemic steroids; Z79.02 Long term (current) use of antithrombotics/antiplatelets; Z79.4 Long term (current) use of insulin

== ENCOUNTER → 2017-07-06 | Outpatient (CLI) | payer OTHER ==
[~2017-07-06] VITALS: Ht 168.9 cm; Wt 77.0 kg
[~2017-07-06] MED LIST changes: -CHOL4POW5 PO; -LORA-741 PO; -LXP10 PO; +MIRT15TA2 PO; -MIRT15TA3 PO
[2017-07-06 08:38] VITALS: BP 124/75; PULSE 78; Ht 168.9 cm; Wt 77.0 kg
== END | disposition home or self-care (01) ==
LOC: C.NEUR 08:00
PROVIDERS: ATTEND Internal Medicine Pulmonary Disease
DX: G47.33 Obstructive sleep apnea (adult) (pediatric) (principal)

== ENCOUNTER 2017-07-17 22:20 | Observation (INO) | payer OTHER ==
[~2017-07-17] VITALS: Ht 167.6 cm; Wt 77.1 kg
[~2017-07-17 22:20] MED LIST changes: +DOXY100T PO
[2017-07-17] MEDS ORDERED: ALUMINUM/MAGNESIUM SUSP 30 ML UDC PO STA (23:50)
[2017-07-18] VITALS (10 sets, daily range): BP systolic 95–176; BP diastolic 48–74; PULSE 78–91; TEMP 36.4–37; O2SAT 93–97; Ht 167.6 cm; Wt 77.1 kg
[2017-07-18] MEDS ORDERED: NITROGLYCERIN OINT 2% 1GM PACKET EXT ONE
--- NOTE | 2017-07-18 00:07 | EMERGENCY ROOM VISIT NOTE ---
History Report prepared by Ivana: Margie Queen Under the Supervision of: Dr. Viridiana Royal D.O. First contact with patient: 23:38 Chief Complaint: CHEST PAIN Stated Complaint: HIGH BLOOD PRES, L ARM PAIN CARDIAC HX, CHEST PAIN History of Present Illness The patient is an 82 year old female who presents to the Emergency Room with complaints of constant chest pain starting 4 hours ago. The patient states that she started to get fatigued so she went to bed. She states that she woke up from her sleep with pain down her left arm and into her chest. She states that she took her blood pressure and it was 189/98. The patient reports that she took a Nitroglycerin which helped with the pain, but did not take it completely away. The patient notes that she was at her PCP this morning and was started on Doxycycline for two boils on her butt. She states that she only took one dose, but is unsure if this is the cause of any of her symptoms. She also notes that she had a pain shot in her right wrist for the first time today. The patient notes a history of a triple bypass and valve surgery. She states that she is on Plavix ad Protonix. The patient complains of nausea. The patient denies the pain radiating to her back, missing doses of her medications, urinary symptoms, diarrhea, melena, hematochezia, dizziness, lightheadedness, shortness of breath , and leg swelling. Source of History: patient Onset: 4 hours ago Position: chest Timing: constant Modifying Factors (Relieving): other (Nitroglycerin) Associated Symptoms: + nausea, + fatigue, No SOB, No melena, No hematochezia , No diarrhea, No urinary symptoms Note: The patient denies the pain radiating to her back, missing doses of her medications, dizziness, lightheadedness, and leg swelling Review of Systems See HPI for pertinent positives & negatives. A total of 10 systems reviewed and were otherwise negative. Past Medical & Surgical Medical Problems: (1) CAD (coronary artery disease) (2) Carcinoma of colon (3) Colectomy (4) Coronary artery disease involving [place] coronary artery (5) Diabetes (6) Dizziness (7) Familial combined hyperlipidemia (8) GERD (gastroesophageal reflux disease) (9) Peptic ulcer (10) Rheumatoid arthritis (11) Stable angina (12) Stroke (13) Vertigo Surgical Problems: (1) History of cholecystectomy (2) History of colectomy (3) Removal of pin, plate, lulu, or screw (4) S/P CABG x 3 Family History Cancer Diabetes mellitus FHx: aneurysm Heart disease Hypertension Social History Smoking Status: Never Smoker Alcohol Use: none Drug Use: none Marital Status: Housing Status: lives with significant other Occupation Status: retired Current/Historical Medications Scheduled Calcium Carbonate-Cholecalcife (Calcium 600 + D 600-200 mg-Unit), 1 TABS PO BID Cholecalciferol (Vitamin D3), 2,000 UNIT PO BID Clopidogrel (Plavix), 75 MG PO DAILY Doxycycline Hyclate (Doxycycline Hyclate), 1 TAB PO BID Gabapentin (Neurontin), 200 MG PO QAM Gabapentin (Neurontin), 100 MG PO QPM Insulin Aspart (Novolog Flexpen), 5 UNITS SQ TIDM Insulin Degludec (Tresiba Flextouch), 15 UNITS SQ QPM Isosorbide Mononitrate (Isosorbide Mononitrate ER), 30 MG PO QAM Losartan Potassium (Losartan Potassium), 50 MG PO DAILY Metoprolol Succinate (Metoprolol Succinate ER), 100 MG PO QPM Mirtazapine Soltab (Remeron Soltab), 7.5 MG PO HS Pantoprazole (Protonix), 40 MG PO QAM Prednisone (Prednisone), 4 MG PO DAILY Rosuvastatin Calcium (Crestor), 40 MG PO DAILY Zolpidem Tartrate (Zolpidem Tartrate), 10 MG PO HS Scheduled PRN Acetaminophen (Tylenol Extra Strength), 1,000 MG PO TID PRN for Pain Azithromycin (Zithromax), 500 MG PO DAILY PRN for BEFORE DENTAL PROCEDURES Nitroglycerin (Nitrostat), 0.4 MG UT UD PRN for Chest Pain Allergies Coded Allergies: Cefadroxil (Verified Allergy, Intermediate, UNKNOWN, 07/18/17) Clindamycin (Verified Allergy, Intermediate, UNKNOWN, 07/18/17) Levofloxacin (Verified Allergy, Intermediate, UNKNOWN, 07/18/17) Metronidazole (Verified Allergy, Intermediate, UNKNOWN, 07/18/17) Amoxicillin (Verified Adverse Reaction, Mild, diarrhea, 07/18/17) Clavulanic Acid (Verified Adverse Reaction, Mild, diarrhea, 07/18/17) Metformin (Verified Adverse Reaction, Mild, diarreha, 07/18/17) Sitagliptin (Verified Adverse Reaction, Mild, diarreha, 07/18/17) Physical Exam Vital Signs Date Time Temp Pulse Resp B/P (MAP) Pulse Ox O2 Delivery O2 Flow Rate FiO2 07/18/17 07:50 94 Room Air 07/18/17 07:29 75 07/18/17 07:22 70 20 180/84 94 Room Air 07/18/17 06:05 71 18 159/66 98 Room Air 07/18/17 05:42 84 20 148/79 98 Room Air 07/18/17 04:43 66 18 133/67 98 Room Air 07/18/17 03:06 79 07/18/17 02:37 72 18 175/88 96 Room Air 07/18/17 00:30 71 18 17/80 96 Room Air 07/18/17 00:00 Room Air 07/17/17 23:56 76 07/17/17 22:36 37.3 94 18 173/69 96 Room Air Physical Exam GENERAL: alert, well appearing, well nourished, no distress, non-toxic EYE EXAM: normal conjunctiva, PERRL and EOM's grossly intact OROPHARYNX: no exudate, no erythema, lips, buccal mucosa, and tongue normal and mucous membranes are dry NECK: supple, no nuchal rigidity, no adenopathy, non-tender LUNGS: Clear to auscultation. Normal chest wall mechanics HEART: no murmurs, S1 normal and S2 normal ABDOMEN: abdomen soft, non-tender, normo-active bowel sounds, no masses, no rebound or guarding. BACK: Back is symmetrical on inspection and there is no deformity, no midline tenderness, no CVA tenderness. SKIN: no rashes and no bruising UPPER EXTREMITIES: upper extremities are grossly normal. Some reproducible left chest and left arm pain. LOWER EXTREMITIES: No pitting edema. NEURO EXAM: Normal sensorium, cranial nerves II-XII grossly intact, normal speech, no gross weakness of arms, no gross weakness of legs. Medical Decision & Procedures ER Provider Diagnostic Interpretation: Radiology results have been interpreted by the radiologist and reviewed by me. CHEST X-RAY: The results were interpreted by me. Mild cardiomegaly. Midline sternotomy wires noted. No effusion. No focal infiltrate. No overt pulmonary edema. No wide mediastinum. Prominent aortic knob. CTA CHEST: First Comparison: April 28 2016 Sternotomy wires and mediastinal clips. There is a small amount of retrosternal stranding and fluid, improved since prior exam. However, given persistence of findings, cannot exclude associated infection at surgical site. Correlate with history of any recent intervention. Normal caliber thoracic aorta with prosthetic aortic valve and atherosclerotic disease. Coronary artery calcifications/ stent. Cardiomegaly. No pericardial effusion. No focal consolidative process. Tree in bud nodular infiltrates may represent small airways infectious or inflammatory process. Scattered areas of scarring and atelectasis. No pleural effusions or lymphadenopathy. No PE. Cholecystectomy clips. Radiologist: Aba Russell MD Study ready at 02:26 and initial results transmitted at 02:45. Laboratory Results Test 07/18/17 00:05 07/18/17 00:10 07/18/17 00:34 07/18/17 00:39 Total Bilirubin 0.5 mg/dl (0.2-1) Alanine Aminotransferase (ALT/SGPT) 50 U/L (12-78) Alkaline Phosphatase 100 U/L (45-117) Pro-B-Type Natriuretic Peptide 943 pg/ml (0-1800) Total Protein 7.8 gm/dl (6.4-8.2) Albumin 3.7 gm/dl (3.4-5.0) Globulin 4.1 gm/dl (2.5-4.0) Albumin/Globulin Ratio 0.9 (0.9-2) Urine Color YELLOW Urine Appearance CLEAR (CLEAR) Urine pH 6.0 (4.5-7.5) Urine Specific [place] 1.017 (1.000-1.030) Urine Protein NEG (NEG) Urine Glucose (UA) 2+ (NEG) Urine Ketones NEG (NEG) Urine Occult Blood NEG (NEG) Urine Nitrite NEG (NEG) Urine Bilirubin NEG (NEG) Urine Urobilinogen NEG (NEG) Urine Leukocyte Esterase NEG (NEG) Aspartate Amino Transf (AST/SGOT) 38 U/L (15-37) Prothrombin Time 10.6 SECONDS (9.0-12.0) Prothromb Time International Ratio 1.0 (0.9-1.1) D-Dimer 580 ug/L FEU (0-500) Laboratory results per my review. Medications Administered Medications (Trade) Dose Ordered Sig/Sincere Route Start Time Stop Time Status Last Admin Dose Admin Nitroglycerin (Nitroglycerin 2% Oint) 1 inch NOW ONCE EXT 07/18/17 00:00 07/18/17 00:01 DC 07/18/17 00:25 1 INCH Al Hydroxide/Mg Hydroxide (Maalox Susp) 30 ml NOW STAT PO 07/17/17 23:50 07/17/17 23:52 DC 07/18/17 00:25 30 ML Acetaminophen (Tylenol Tab) 1,000 mg NOW STAT PO 07/18/17 02:42 07/18/17 02:44 DC 07/18/17 03:43 1,000 MG Famotidine (Pepcid 20mg Iv Push) 20 mg ONE STAT IV 07/18/17 02:42 07/18/17 02:44 DC 07/18/17 03:48 20 MG Fentanyl Citrate (Fentanyl Inj) 50 mcg NOW ONCE IV 07/18/17 02:45 07/18/17 02:46 DC 07/18/17 03:47 50 MCG Fentanyl Citrate (Fentanyl Inj) 50 mcg NOW STAT IV 07/18/17 06:27 07/18/17 06:28 DC 07/18/17 06:34 50 MCG ECG Indication: chest pain Rate (beats per minute): 79 Rhythm: sinus rhythm Findings: ST depression (slight in lead 1, V5, and V6), other (normal axis, normal intervals) Comparison ECG Date: Jun 25, 2017 Change: no significant change Change: EKG: Patient's electrocardiogram per my interpretation. ED Course 2340: The patient was evaluated in room A11B. A complete history and physical exam was performed. 2350: Ordered Maalox Susp 30 ml PO. 0000: Ordered Nitroglycerin 1 inch EXT. 0239: I reevaluated the patient and she is still having pain. I updated her on her results. 0242: Ordered Famotidine 20 mg IV, Tylenol Tab 1000 mg PO. 0245: Ordered Fentanyl Inj 50 mcg IV. 0431: I reevaluated the patient and she is pain free. I removed the Nitro paste at this time. 0606: I reevaluated the patient and she is still having pain. 0620: Paged Dr. Hoffman [facility] Hospitalist. He states that he will pass the admission to the day time hospitalist to be further evaluated. 0627: Ordered Fentanyl Inj 50 mcg. 0747: Dr. Patricia called back. Discussed case for additional evaluation/ treatment. Medical Decision The patient is an 82 year old female who presents to the Emergency Room with complaints of constant chest pain starting 4 hours ago. Differential diagnosis: Etiologies such as cardiac ischemia, aortic dissection, pulmonary embolism, pneumonia, pneumothorax, musculoskeletal, infections, pericarditis, myocarditis , esophageal rupture, gastrointestinal, as well as others were entertained. Vital signs stable throughout, labs and imaging reassuring, however given persistent patient's pain uncomfortable appearance as well as significant prior cardiac pathology, discussed with the hospitalist for additional evaluation and treatment. Patient concern is feels different from prior episodes of reflux, prior episodes of cardiac pain, as well as her history of polymyalgia rheumatica. Initially thought patient's chest pain likely GI in origin given history of reflux, use of chronic steroids as well as recent initiation of doxycycline, however patient did not respond to GI medications. No evidence of acute vascular pathology or PE. No EKG changes noted. No evidence of CHF. Doubt perforation or occult GI bleed. No evidence of acute infectious etiology. Patient and no relief with nitroglycerin, only relief came with administration of IV fentanyl. Medication Reconcilliation Current Medication List: was personally reviewed by me Blood Pressure Screening Patient's blood pressure: Elevated blood pressure Will be further monitored by the hospitalist. Consults Time Called: 06 Consulting Physician: Dr. Yasmin Cardenas [facility] [place] Returned Call: 0620 Dr. Yasmin Cardenas [facility] [place] called back and he states that he will pass the admission to the day time hospitalist to be further evaluated. Impression Primary Impression: Chest pain Additional Impressions: Left arm pain HTN (hypertension) Scribe Attestation The scribe's documentation has been prepared under my direction and personally reviewed by me in its entirety. I confirm that the note above accurately reflects all work, treatment, procedures, and medical decision making performed by me. Departure Information Dispostion Being Evaluated By Hospitalist Referrals Davion Flores M.D. (PCP) Patient Instructions My [facility] Problem Qualifiers Primary Impression: Chest pain Chest pain type: unspecified Qualified Codes: R07.9 - Chest pain, unspecified Additional Impressions: HTN (hypertension) Hypertension type: essential hypertension Qualified Codes: I10 - Essential ( primary) hypertension
[2017-07-18 00:22] LABS: BASO % 0.2 %; BASO ABS # 0.01 K/uL (0-0.2); EOS % 0.6 %; EOS ABS # 0.04 K/uL (0-0.5); HEMATOCRIT 39.5 % (37-47); HEMOGLOBIN 13.1 g/dL (12.0-16.0); IG# 0.02 K/uL (0.00-0.02); LYMPH % 29.6 %; LYMPH ABS # 1.87 K/uL (1.2-3.4); MEAN CORPUSCULAR HEMOGLOBIN 31.2 pg (25-34); MEAN CORPUSCULAR HGB CONC 33.2 g/dl (32-36); MEAN PLATELET VOLUME 10.6 fL (7.4-10.4); MONO % 13.5 %; MONO ABS # 0.85 K/uL (0.11-0.59); NEUT % 55.8 %; NEUT ABS # 3.52 K/uL (1.4-6.5); PLATELET COUNT 168 K/uL (130-400); RED CELL DISTRIBUTION WIDTH CV 15.3 % (11.5-14.5); RED CELL DISTRIBUTION WIDTH SD 52.7 fL (36.4-46.3); WHITE BLOOD COUNT 6.31 K/uL (4.8-10.8)
[2017-07-18] MEDS ORDERED: NITROGLYCERIN 2% OINTMENT 30GM TUBE EXT ONE (00:22)
[2017-07-18 00:55] LABS: ALBUMIN 3.7 gm/dl (3.4-5.0); CALCIUM 9.6 mg/dl (8.5-10.1); CREATININE 1.1 mg/dl (0.60-1.20); TOTAL PROTEIN 7.8 gm/dl (6.4-8.2)
[2017-07-18] MEDS ORDERED: OPTIRAY 320 IV PRN (01:30)
[2017-07-18] MEDS ORDERED: ACETAMINOPHEN 500 MG TAB PO STA (02:42)
[2017-07-18] MEDS ORDERED: FAMOTIDINE 20MG/5ML IV PUSH IV STA (02:42)
[2017-07-18] MEDS ORDERED: FENTANYL CITRATE INJ 50 MCG/1 ML 2 ML VIAL IV ONE (02:45)
[2017-07-18] MEDS ORDERED: FENTANYL CITRATE INJ 50 MCG/1 ML 2 ML VIAL IV STA (06:27)
--- NOTE | 2017-07-18 07:23 | DIAGNOSTIC IMAGING REPORT ---
CT ANGIOGRAM OF THE CHEST CLINICAL HISTORY: Atypical chest pain. COMPARISON STUDY: Chest CT dated 04/17/2014 7. Additional findings as above. And 04/28/2016. Chest x-ray dated 07/18/2017. TECHNIQUE: Following the IV administration of 93 cc of Optiray 320, CT angiogram of the chest was performed from the upper abdomen to the thoracic inlet utilizing the pulmonary embolus protocol. Images are reviewed in the axial, sagittal, and coronal planes. 3-D MIPS images are created and assessed. IV contrast was administered without complication. A dose lowering technique was utilized adhering to the principles of ALARA. CT DOSE: 376.90 mGy.cm FINDINGS: Thyroid: Imaged portions of the thyroid gland are normal in size and attenuation. A subcentimeter low-attenuation nodule is suggested in the left lobe. Thoracic aorta: There is atherosclerotic calcification of the thoracic aorta, which is normal in caliber and demonstrates standard 3-vessel arch anatomy. No dissection is seen. There is high-grade stenosis identified within the proximal left subclavian artery. Pulmonary vasculature: The main pulmonary arteries are mildly enlarged suggesting pulmonary artery hypertension. There are no filling defects identified in main, lobar, or segmental pulmonary branches to suggest pulmonary embolus. Heart: The patient is status post midline sternotomy an aortic valve surgery. The heart is enlarged and without pericardial effusion. The coronary arteries are densely calcified. Lungs and pleural spaces: Evaluation of the lung parenchyma is modestly degraded by motion artifact. Linear atelectasis versus scarring is present at both lung bases. Foci of tree-in-bud nodularity are present in the right upper lobe. The trachea and central airways are clear. A 5 m groundglass focus at the left apex as seen on image #[id number]. This is unchanged from 04/17/2014. Mediastinum: Retrosternal scarring is similar to previous. There is no mediastinal lymphadenopathy. Elisha: Clear. Axillae: There is no axillary lymphadenopathy. Upper abdomen: Cholecystectomy clips are noted. There is a tiny hiatal hernia. Partially visualized upper abdominal viscera is within normal limits. Skeletal structures: The skeletal structures are osteopenic. No lytic or blastic bony lesions are seen. IMPRESSION: 1. There is no evidence of pulmonary embolus in the main, lobar, or segmental pulmonary arteries. 2. There is no lobar consolidation or pleural effusion. 3. Foci of tree-in-bud nodularity are seen throughout the right upper lobe. This likely represents an infectious/inflammatory pneumonitis. Clinical correlation will be required. This has been present on prior examinations dating back to 2013 and may be chronic. 4. A 5 mm groundglass focus at the left apex is unchanged dating back to 04/17/2014. 5. Cardiomegaly. 6. There is high-grade stenosis seen in the proximal left subclavian artery. 7. Additional findings as above. Electronically signed by: Efren Taylor M.D. 07/18/2017 7:21 AM Dictated Date/Time: 07/18/2017 7:14 AM
--- NOTE | 2017-07-18 07:24 | DIAGNOSTIC IMAGING REPORT ---
SINGLE VIEW CHEST CLINICAL HISTORY: Atypical chest pain. FINDINGS: An AP, portable, upright chest radiograph is compared to study dated 06/25/2017. The examination is degraded by portable technique and patient rotation. The patient is status post midline sternotomy and aortic valve surgery. The heart is enlarged and there is atherosclerotic calcification of the thoracic aorta. The pulmonary vasculature is noncongested. Chronic interstitial thickening is similar to previous. No airspace consolidation or pleural effusion is identified. No pneumothorax is seen. The skeletal structures are osteopenic. The bony thorax is grossly intact. IMPRESSION: Cardiomegaly with no acute cardiopulmonary abnormality. Electronically signed by: Efren Taylor M.D. 07/18/2017 7:22 AM Dictated Date/Time: 07/18/2017 7:21 AM
[2017-07-18] MEDS ORDERED: ALUMINUM/MAGNESIUM/SIMETH (MAALOX MAX) 30 ML UDC PO PRN (08:00)
[2017-07-18] MEDS ORDERED: ACETAMINOPHEN 325 MG TAB PO PRN (08:00)
[2017-07-18] MEDS ORDERED: NITROGLYCERIN 0.4 MG SL PER TAB CHARGE UT PRN (08:00)
[2017-07-18] MEDS ORDERED: IV FLUIDS COMPLETED PRN (08:45)
--- NOTE | 2017-07-18 08:59 | History and Physical ---
History & Physical Date & Time of Service: Jul 18, 2017 at 08:37 Chief Complaint: High Blood Pres, L Arm Pain Cardiac Hx, Chest Pain Primary Care Physician: Davion Flores M.D. History of Present Illness Source: patient, clinic records, hospital records Patient is a pleasant 82 y/o female, with PMHx of CAD s/p CABG, aortic valve repair w/ bioprosthetic valve, CVA, HLD, PAD, HTN, T2DM, LALA, PMR, vertigo, MSSA buttock abscess and GERD, who presented to the ED because of L-sided chest pain that started around 1999 last evening. Pain radiates to L arm. She denies any pain with movement. Admits to pain w/ palpation. She is unable to described pain type. Discomfort comes and goes. She states she has PMR and symptoms seem kind of similar. She was seen by Dr. Benavides yesterday for buttock wounds and placed on Doxycycline. She took one dose yesterday. She has many allergies and believes Doxycycline has contributed to her symptoms so she is now refusing medication. She was treated w/ Nitro paste, IV Fentanyl, Tylenol, Maalox, and Pepcid in ED w/ no relief in symptoms. Currently, patient denies any pain. Patient denies any fever, chills, sweats, lightheadedness, dizziness, vision changes, palpitations, edema, SOB, wheezing, cough, abdominal pain, nausea, vomiting, diarrhea, urinary symptoms, melena, numbness/tingling, weakness, muscle/joint pain, anxiety/depression, active bleeding. Past Medical/Surgical History Medical Problems: CAD s/p CABG aortic valve repair w/ bioprosthetic valve mitral regurgitation CVA HLD PAD HTN T2DM LALA PMR vertigo MSSA buttock abscess GERD colon cancer s/p colectomy Surgical Problems: (1) History of cholecystectomy Status: Resolved (2) History of colectomy Status: Resolved (3) Removal of pin, plate, lulu, or screw Status: Resolved Family History Cancer Diabetes mellitus FHx: aneurysm Heart disease Hypertension Social History Smoking Status: Never Smoker Drug Use: none Marital Status: Housing status: lives with family Occupational Status: retired Immunizations History of Influenza Vaccine: No Influenza Vaccine Date: Mar 17, 2011 History of Tetanus Vaccine?: unknown History of Pneumococcal: No History of Hepatitis B Vaccine: No Multi-Drug Resistant Organisms History of MDRO: No Allergies Coded Allergies: Cefadroxil (Verified Allergy, Intermediate, UNKNOWN, 07/18/17) Clindamycin (Verified Allergy, Intermediate, UNKNOWN, 07/18/17) Levofloxacin (Verified Allergy, Intermediate, UNKNOWN, 07/18/17) Metronidazole (Verified Allergy, Intermediate, UNKNOWN, 07/18/17) Amoxicillin (Verified Adverse Reaction, Mild, diarrhea, 07/18/17) Clavulanic Acid (Verified Adverse Reaction, Mild, diarrhea, 07/18/17) Metformin (Verified Adverse Reaction, Mild, diarreha, 07/18/17) Sitagliptin (Verified Adverse Reaction, Mild, diarreha, 07/18/17) Home Medications Scheduled Calcium Carbonate-Cholecalcife (Calcium 600 + D 600-200 mg-Unit), 1 TABS PO BID Cholecalciferol (Vitamin D3), 2,000 UNIT PO BID Clopidogrel (Plavix), 75 MG PO DAILY Doxycycline Hyclate (Doxycycline Hyclate), 1 TAB PO BID Gabapentin (Neurontin), 200 MG PO QAM Gabapentin (Neurontin), 100 MG PO QPM Insulin Aspart (Novolog Flexpen), 5 UNITS SQ TIDM Insulin Degludec (Tresiba Flextouch), 15 UNITS SQ QPM Isosorbide Mononitrate (Isosorbide Mononitrate ER), 30 MG PO QAM Losartan Potassium (Losartan Potassium), 50 MG PO DAILY Metoprolol Succinate (Metoprolol Succinate ER), 100 MG PO QPM Mirtazapine Soltab (Remeron Soltab), 7.5 MG PO HS Pantoprazole (Protonix), 40 MG PO QAM Prednisone (Prednisone), 4 MG PO DAILY Rosuvastatin Calcium (Crestor), 40 MG PO DAILY Zolpidem Tartrate (Zolpidem Tartrate), 10 MG PO HS Scheduled PRN Acetaminophen (Tylenol Extra Strength), 1,000 MG PO TID PRN for Pain Azithromycin (Zithromax), 500 MG PO DAILY PRN for BEFORE DENTAL PROCEDURES Nitroglycerin (Nitrostat), 0.4 MG UT UD PRN for Chest Pain Physical Exam Vital Signs Date Time Temp Pulse Resp B/P (MAP) Pulse Ox O2 Delivery O2 Flow Rate FiO2 07/18/17 07:50 94 Room Air 07/18/17 07:29 75 07/18/17 07:22 70 20 180/84 94 Room Air 07/18/17 06:05 71 18 159/66 98 Room Air 07/18/17 05:42 84 20 148/79 98 Room Air 07/18/17 04:43 66 18 133/67 98 Room Air 07/18/17 03:06 79 07/18/17 02:37 72 18 175/88 96 Room Air 07/18/17 00:30 71 18 17/80 96 Room Air 07/18/17 00:00 Room Air 07/17/17 23:56 76 07/17/17 22:36 37.3 94 18 173/69 96 Room Air General Appearance: no apparent distress Head: normocephalic, atraumatic Eyes: normal inspection, PERRL ENT: hearing grossly normal Neck: supple Respiratory/Chest: lungs clear, no respiratory distress, no accessory muscle use, + pertinent finding (mild L chest wall discomfort to palpation ) Cardiovascular: regular rate, rhythm, + systolic murmur Abdomen/GI: normal bowel sounds, non tender, soft Back: normal inspection Extremities/Musculoskelatal: no calf tenderness, no pedal edema Neurologic/Psych: no motor/sensory deficits, alert, normal mood/affect, oriented x 3 Skin: normal color, warm/dry, no rash Diagnostics Laboratory Results Results Past 24 Hours Test 07/18/17 00:05 07/18/17 00:10 07/18/17 00:34 07/18/17 00:39 Range/Units White Blood Count 6.31 4.8-10.8 K/uL Red Blood Count 4.20 4.2-5.4 M/uL Hemoglobin 13.1 12.0-16.0 g/dL Hematocrit 39.5 37-47 % Mean Corpuscular Volume 94.0 80-100 fL Mean Corpuscular Hemoglobin 31.2 25-34 pg Mean Corpuscular Hemoglobin Concent 33.2 32-36 g/dl Platelet Count 168 130-400 K/uL Mean Platelet Volume 10.6 7.4-10.4 fL Neutrophils (%) (Auto) 55.8 % Lymphocytes (%) (Auto) 29.6 % Monocytes (%) (Auto) 13.5 % Eosinophils (%) (Auto) 0.6 % Basophils (%) (Auto) 0.2 % Neutrophils # (Auto) 3.52 1.4-6.5 K/uL Lymphocytes # (Auto) 1.87 1.2-3.4 K/uL Monocytes # (Auto) 0.85 0.11-0.59 K/uL Eosinophils # (Auto) 0.04 0-0.5 K/uL Basophils # (Auto) 0.01 0-0.2 K/uL RDW Standard Deviation 52.7 36.4-46.3 fL RDW Coefficient of Variation 15.3 11.5-14.5 % Immature Granulocyte % (Auto) 0.3 % Immature Granulocyte # (Auto) 0.02 0.00-0.02 K/uL Sodium Level 141 136-145 mmol/L Potassium Level 4.0 3.5-5.1 mmol/L Chloride Level 107 98-107 mmol/L Carbon Dioxide Level 25 21-32 mmol/L Anion Gap 9.0 3-11 mmol/L Blood Urea Nitrogen 20 7-18 mg/dl Creatinine 1.10 0.60-1.20 mg/dl Est Creatinine Clear Calc Drug Dose 42.0 ml/min Estimated GFR () 54.5 Estimated GFR (Non- 47.0 BUN/Creatinine Ratio 18.1 10-20 Random Glucose 137 70-99 mg/dl Calcium Level 9.6 8.5-10.1 mg/dl Magnesium Level 2.2 1.8-2.4 mg/dl Total Bilirubin 0.5 0.2-1 mg/dl Aspartate Amino Transf (AST/SGOT) 38 15-37 U/L Alanine Aminotransferase (ALT/SGPT) 50 12-78 U/L Alkaline Phosphatase 100 45-117 U/L Troponin I 0.019 0-0.045 ng/ml Pro-B-Type Natriuretic Peptide 943 0-1800 pg/ml Total Protein 7.8 6.4-8.2 gm/dl Albumin 3.7 3.4-5.0 gm/dl Globulin 4.1 2.5-4.0 gm/dl Albumin/Globulin Ratio 0.9 0.9-2 Urine Color YELLOW Urine Appearance CLEAR CLEAR Urine pH 6.0 4.5-7.5 Urine Specific [place] 1.017 1.000-1.030 Urine Protein NEG NEG Urine Glucose (UA) 2+ NEG Urine Ketones NEG NEG Urine Occult Blood NEG NEG Urine Nitrite NEG NEG Urine Bilirubin NEG NEG Urine Urobilinogen NEG NEG Urine Leukocyte Esterase NEG NEG Prothrombin Time 10.6 9.0-12.0 SECONDS Prothromb Time International Ratio 1.0 0.9-1.1 D-Dimer 580 0-500 ug/L FEU Test 07/18/17 03:26 07/18/17 07:55 Range/Units Troponin I 0.041 0-0.045 ng/ml Diagnostic Radiology SINGLE VIEW CHEST CLINICAL HISTORY: Atypical chest pain. FINDINGS: An AP, portable, upright chest radiograph is compared to study dated 06/25/2017. The examination is degraded by portable technique and patient rotation. The patient is status post midline sternotomy and aortic valve surgery. The heart is enlarged and there is atherosclerotic calcification of the thoracic aorta. The pulmonary vasculature is noncongested. Chronic interstitial thickening is similar to previous. No airspace consolidation or pleural effusion is identified. No pneumothorax is seen. The skeletal structures are osteopenic. The bony thorax is grossly intact. IMPRESSION: Cardiomegaly with no acute cardiopulmonary abnormality. Electronically signed by: Efren Taylor M.D. 07/18/2017 7:22 AM Dictated Date/Time: 07/18/2017 7:21 AM The status of this report is Signed. Draft = Not yet reviewed or approved by Radiologist. Signed = Reviewed and approved by Radiologist. CT ANGIOGRAM OF THE CHEST CLINICAL HISTORY: Atypical chest pain. COMPARISON STUDY: Chest CT dated 04/17/2014 7. Additional findings as above. And 04/28/2016. Chest x-ray dated 07/18/2017. TECHNIQUE: Following the IV administration of 93 cc of Optiray 320, CT angiogram of the chest was performed from the upper abdomen to the thoracic inlet utilizing the pulmonary embolus protocol. Images are reviewed in the axial, sagittal, and coronal planes. 3-D MIPS images are created and assessed. IV contrast was administered without complication. A dose lowering technique was utilized adhering to the principles of ALARA. CT DOSE: 376.90 mGy.cm FINDINGS: Thyroid: Imaged portions of the thyroid gland are normal in size and attenuation. A subcentimeter low-attenuation nodule is suggested in the left lobe. Thoracic aorta: There is atherosclerotic calcification of the thoracic aorta, which is normal in caliber and demonstrates standard 3-vessel arch anatomy. No dissection is seen. There is high-grade stenosis identified within the proximal left subclavian artery. Pulmonary vasculature: The main pulmonary arteries are mildly enlarged suggesting pulmonary artery hypertension. There are no filling defects identified in main, lobar, or segmental pulmonary branches to suggest pulmonary embolus. Heart: The patient is status post midline sternotomy an aortic valve surgery. The heart is enlarged and without pericardial effusion. The coronary arteries are densely calcified. Lungs and pleural spaces: Evaluation of the lung parenchyma is modestly degraded by motion artifact. Linear atelectasis versus scarring is present at both lung bases. Foci of tree-in-bud nodularity are present in the right upper lobe. The trachea and central airways are clear. A 5 m groundglass focus at the left apex as seen on image #[id number]. This is unchanged from 04/17/2014. Mediastinum: Retrosternal scarring is similar to previous. There is no mediastinal lymphadenopathy. Elisha: Clear. Axillae: There is no axillary lymphadenopathy. Upper abdomen: Cholecystectomy clips are noted. There is a tiny hiatal hernia. Partially visualized upper abdominal viscera is within normal limits. Skeletal structures: The skeletal structures are osteopenic. No lytic or blastic bony lesions are seen. IMPRESSION: 1. There is no evidence of pulmonary embolus in the main, lobar, or segmental pulmonary arteries. 2. There is no lobar consolidation or pleural effusion. 3. Foci of tree-in-bud nodularity are seen throughout the right upper lobe. This likely represents an infectious/inflammatory pneumonitis. Clinical correlation will be required. This has been present on prior examinations dating back to 2013 and may be chronic. 4. A 5 mm groundglass focus at the left apex is unchanged dating back to 04/17/2014. 5. Cardiomegaly. 6. There is high-grade stenosis seen in the proximal left subclavian artery. 7. Additional findings as above. Electronically signed by: Efren Taylor M.D. 07/18/2017 7:21 AM Dictated Date/Time: 07/18/2017 7:14 AM The status of this report is Signed. Draft = Not yet reviewed or approved by Radiologist. Signed = Reviewed and approved by Radiologist. EKG JACKELYN JHAVERI ID:[id number] 17-JUL-2017 22:36:45 [facility] Normal sinus rhythm ST & T wave abnormality, consider lateral ischemia Abnormal ECG When compared with ECG of 25-JUN-2017 09:44, No significant change was found 25mm/s 10mm/mV 150Hz 8.0 SP2 12SL 241 ERUM: 0 Referred by: Referred Self Unconfirmed Vent. rate 79 BPM CA interval 176 ms QRS duration 96 ms QT/QTc 392/449 ms P-R-T axes -1 -3 119 1935 (82 yr) Female 85in 1lb Room: Loc:15 Transit Driver:Virgie De Leon Test ind: Impression Assessment and Plan Patient is a pleasant 82 y/o female, with PMHx of CAD s/p CABG, aortic valve repair w/ bioprosthetic valve, CVA, HLD, PAD, HTN, T2DM, LALA, PMR, vertigo, MSSA buttock abscess and GERD, who presented to the ED because of L-sided chest pain that started around 1999 last evening. L-sided chest pain, ACS r/o vs PMR vs GERD: - Admit to tele observation for cardiac monitoring - Trend cardiac enzymes - EKG QAM and PRN for chest pain - ECHO pending - Nitro PRN for chest pain - CXR and CTA of chest- unremarkable for acute findings - Consult cardiology, appreciate recommendations CAD s/p CABG, aortic valve repair w/ bioprosthetic valve, HTN- follows w/ Dr. Walters: Continue Metoprolol 100 mg daily, Losartan 50 mg daily, Imdur 30 mg daily CVA, PAD, HLD: Continue Crestor 40 mg daily, Plavix 75 mg daily PMR- follows w/ Dr. Starr: Continue Gabapentin 100 mg TID, Prednisone 5 mg daily MSSA buttock abscess- follows w/ Dr. Benavides: Refusing Doxycycline at this time- Dr. Benavides consulted T2DM: - Continue Tresiba 15 u daily - BSG ACHS and ISS LALA: CPAP HS GERD: Protonix DVT prophylaxis: Heparin SQ BID Code status: LEVEL V, DNR Dispo: From home, lives w/ - no discharge needs anticipated Level of Care Telemetry Advanced Directives Existing Living Will: Yes Existing Power of Restaurant Supervisor: Yes ([place] ) Resuscitation Status DO NOT RESUSCITATE VTE Prophylaxis VTE Risk Assessment Done? Y/N: Yes Risk Level: Moderate Reviewed: Pt Seen/Exam by Me History Physician Computer Programmer Analyst Supervision Note: I interviewed and examined the patient. Discussed with PA Murarik and agree with findings and plan as documented in the note. Any exceptions or clarifications are listed here: Pt admitted this AM after having atypical CP in left side of chest with radiation to LUE that started last night, several hours after taking po doxycycline. SHe received IV Pepcid, Maalox, nitroglycerin, and Fentanyl in the ER. Troponin has trended upward slightly into an abnormal range throughout the day since admission. SHe is actually CP-free as of the time of admission this AM. Pt reports she frequently has pain at the site of her previous sternotomy with some radiation to left side of chest that is tender, but this pain was different because it went to her left arm. Discussed the case with Cardiology. Vitals reviewed NAD, AAOx3 RRR 2/6 LIBAN at RUSB, +TTP over left chest wall CTAB no wcr Abd +BS soft NT ND Ext no edema SKin: Right buttocks with 2 areas of circular lesions that are fluctuant, purplish in color, no TTP, 1.5cm in diameter Pt is an 82 yo female with a h/o CAD s/p CABG, AVR, h/o CVA after AVR, HTN, LALA , DMII, HLD, PAD, PMR, OA on chronic prednisone, vertigo, MSSA buttock abscess and GERD, here with atypical CP. Could very well be secondary to doxycycline-induced gastritis or esophagitis -troponin slightly elevated now could be due to elevated BPs as per d/w Cardio, ECGs essentially unchanged from previous -follow troponin and Cardiology recommends Heparin gtt ONLY IF troponin goes up significantly with next check -improve control of BP with increasing dose of losartan to 100mg daily (extra 50 -mg given this afternoon), and increase Imdur to 60mg daily (added extra 30mg today) -add carafate and IV Pepcid on for possible esophagitis and gastritis -Buttocks abscesses seem on their way to healing-could have some benefit to opening them up for drainage, but no longer erythematous or very tender as per patient-will just continue IV abx for now and follow clinically Documented By: Stella Patricia
[2017-07-18] MEDS ORDERED: DOXYCYCLINE HYCLATE 100 MG CAP PO SCH (09:00)
[2017-07-18] MEDS ORDERED: ISOSORBIDE MONONITRATE 30 MG TABCR PO SCH (09:00)
[2017-07-18] MEDS ORDERED: GABAPENTIN 100 MG CAP PO SCH ×2 (09:00→21:00)
[2017-07-18] MEDS ORDERED: LOSARTAN POTASSIUM 50 MG TAB PO SCH (09:00)
[2017-07-18] MEDS ORDERED: GLUCOSE 40% GEL 15 GM TUBE PO PRN (10:30)
[2017-07-18] MEDS ORDERED: DEXTROSE 50% 50 ML SYR IV PRN (10:30)
[2017-07-18] MEDS ORDERED: GLUCOSE 10 TABS/TUBE PO PRN (10:30)
[2017-07-18] MEDS ORDERED: GLUCAGON FOR INJ 1 MG VIAL SQ PRN (10:30)
[2017-07-18] MEDS: CLOPIDOGREL BISULFATE 75 MG TAB PO SCH (11:56)
[2017-07-18] MEDS: GABAPENTIN 100 MG CAP PO SCH ×3 (11:56→21:02)
[2017-07-18] MEDS: ASPIRIN 81 MG ECTAB PO SCH (11:56)
[2017-07-18] MEDS: ROSUVASTATIN CALCIUM 20 MG TAB PO SCH (11:56)
[2017-07-18] MEDS: CALCIUM 600MG + VIT D 400 IU TAB PO SCH ×2 (11:57→21:02)
[2017-07-18] MEDS: PANTOprazole SOD 40 MG TAB PO SCH (11:57)
[2017-07-18] MEDS: CHOLECALCIFEROL 1000 INTER.UNIT TAB PO SCH ×2 (11:57→21:03)
[2017-07-18] MEDS: HEPARIN SOD 5000 UNIT/0.5 ML CARP SQ SCH ×2 (12:04→21:07)
[2017-07-18] MEDS: INSULIN ASPART 100 UNITS/ML 3 ML PEN SC SCH ×3 (12:04→21:00)
--- NOTE | 2017-07-18 12:12 | Medical Consult ---
Consultation Date of Consultation: Jul 18, 2017. Attending Physician: Stella Patricia MD Reason for Consultation: Buttock wound, refusing doxycycline History of Present Illness 82-year-old female known to me from outpatient infectious disease consultation yesterday, with history of diabetes mellitus, coronary artery disease, status post aortic valve replacement, who has suffered from recurrence abscesses involving the buttocks. Was last seen by me last year and was given a Bactrim but developed severe reaction and it was discontinued. Was seen in the office for recurrence of right buttock abscesses, and started on doxycycline. Patient now admitted with acute onset of chest pain with negative cardiac enzymes. Buttock abscesses are unchanged. Moderately painful, currently 2/10 in intensity. Cultures have grown methicillin sensitive Staph aureus. No report of fever or chills. Past Medical/Surgical History Medical Problems: (1) [id number] Status: Acute (2) Abnormal EKG Status: Acute (3) Acute electrocardiogram changes Status: Acute (4) Anticoagulant long-term use Status: Acute (5) Anxiety Status: Acute (6) Atypical chest pain Status: Acute (7) Atypical chest pain Status: Acute (8) Bilateral lower abdominal pain Status: Acute (9) Body aches Status: Acute (10) Bronchitis Status: Acute (11) Chest pain Status: Acute (12) Chest wall pain Status: Acute (13) Chest wall pain following surgery Status: Acute (14) CVA (cerebral vascular accident) Status: Acute (15) Dizzy Status: Acute (16) Elevated troponin Status: Acute (17) Fatigue Status: Acute (18) Feeling unwell Status: Acute (19) Gastritis Status: Acute (20) History of coronary artery disease Status: Acute (21) HTN (hypertension) Status: Acute (22) Hyperglycemia Status: Acute (23) Hypoxia Status: Acute (24) Labile blood pressure Status: Acute (25) Left arm pain Status: Acute (26) Left sided chest pain Status: Acute (27) Left sided chest pain Status: Acute (28) Nausea, vomiting, and diarrhea Status: Acute (29) Non-cardiac chest pain Status: Acute (30) Non-cardiac chest pain Status: Acute (31) Persistent cough Status: Acute (32) PNA (pneumonia) Status: Acute (33) Precordial chest pain Status: Acute (34) Precordial chest pain Status: Acute (35) Renal insufficiency Status: Acute (36) Sleep deprivation Status: Acute (37) Sleep deprivation Status: Acute (38) Substernal chest pain Status: Acute (39) Substernal chest pain Status: Acute (40) Subtherapeutic international normalized ratio (INR) Status: Acute (41) Supratherapeutic international normalized ratio (INR) Status: Acute (42) Weakness Status: Acute Medical Problems: (1) CAD (coronary artery disease) (2) Carcinoma of colon (3) Colectomy (4) Coronary artery disease involving os[place] coronary artery (5) Diabetes (6) Dizziness (7) Familial combined hyperlipidemia (8) GERD (gastroesophageal reflux disease) (9) Peptic ulcer (10) Rheumatoid arthritis (11) Stable angina (12) Stroke (13) Vertigo Surgical Problems: (1) History of cholecystectomy (2) History of colectomy (3) Removal of pin, plate, lulu, or screw (4) S/P CABG x 3 Family History Cancer Diabetes mellitus FHx: aneurysm Heart disease Hypertension Social History Smoking Status: Never Smoker Drug Use: none Marital Status: Housing Status: lives with significant other Occupation Status: retired Allergies Coded Allergies: Cefadroxil (Verified Allergy, Intermediate, UNKNOWN, 07/18/17) Clindamycin (Verified Allergy, Intermediate, UNKNOWN, 07/18/17) Levofloxacin (Verified Allergy, Intermediate, UNKNOWN, 07/18/17) Metronidazole (Verified Allergy, Intermediate, UNKNOWN, 07/18/17) Amoxicillin (Verified Adverse Reaction, Mild, diarrhea, 07/18/17) Clavulanic Acid (Verified Adverse Reaction, Mild, diarrhea, 07/18/17) Metformin (Verified Adverse Reaction, Mild, diarreha, 07/18/17) Sitagliptin (Verified Adverse Reaction, Mild, diarreha, 07/18/17) Current Inpatient Medications Current Inpatient Medications Medications (Trade) Dose Ordered Sig/Sincere Route Start Time Stop Time Status Last Admin Dose Admin Ioversol (Optiray 320) 100 ml UD PRN IV 07/18/17 01:30 07/22/17 01:29 Acetaminophen (Tylenol Tab) 650 mg Q4H PRN PO 07/18/17 08:00 08/17/17 07:59 Al Hydrox/Mg Hydrox/Simethicone (Maalox Max Susp) 15 ml Q4H PRN PO 2/6/18 08:00 08/17/17 07:59 Aspirin (Ecotrin Tab) 81 mg QAM PO 07/18/17 09:00 08/17/17 08:59 07/18/17 11:56 81 MG Clopidogrel Bisulfate (plAVix TAB) 75 mg DAILY PO 07/18/17 09:00 08/17/17 08:59 07/18/17 11:56 75 MG Isosorbide Mononitrate (Imdur Ext Rel Tab) 30 mg QAM PO 07/18/17 09:00 08/17/17 08:59 07/18/17 11:57 30 MG Losartan Potassium (coZAAR TAB) 50 mg DAILY PO 07/18/17 09:00 08/17/17 08:59 07/18/17 11:57 50 MG Nitroglycerin (Nitrostat Tab) 0.4 mg UD PRN UT 07/18/17 08:00 08/17/17 07:59 Pantoprazole Sodium (Protonix Tab) 40 mg QAM PO 07/18/17 09:00 08/17/17 08:59 07/18/17 11:57 40 MG Rosuvastatin Calcium (Crestor Tab) 40 mg DAILY PO 07/18/17 09:00 08/17/17 08:59 07/18/17 11:56 40 MG Zolpidem Tartrate (Ambien Tab) 10 mg HS PO 07/18/17 21:00 08/17/17 20:59 Calcium/Vitamin D (Caltrate Plus Tab) 1 tab BID PO 07/18/17 09:00 08/17/17 08:59 Cholecalciferol (Vitamin D Tab) 2,000 inter.unit BID PO 07/18/17 09:00 08/17/17 08:59 Insulin Glargine (Lantus Solostar Pen) 15 units QPM SC 07/18/17 21:00 08/17/17 20:59 Metoprolol Succinate (Toprol Xl Tab) 100 mg QPM PO 07/18/17 21:00 08/17/17 20:59 Miscellaneous (Iv Fluids Completed) 1 ea PRN PRN N/A 07/18/17 08:45 07/18/18 08:44 Gabapentin (Neurontin Cap) 100 mg TID PO 07/18/17 09:00 08/17/17 20:59 07/18/17 11:56 100 MG Prednisone (PredniSONE TAB) 5 mg DAILY PO 07/18/17 09:00 08/17/17 08:59 07/18/17 11:56 5 MG Heparin Sodium (Porcine) (Heparin Sq 5000 Unit/0.5ml) 5,000 unit Q12 SQ 07/18/17 09:00 08/17/17 08:59 07/18/17 12:04 5,000 UNIT Insulin Aspart (novoLOG ASPART) SLIDING SCALE G... ACHS SC 07/18/17 11:00 08/17/17 10:59 Glucose (Glucose 40% Gel) 15-30 GRAMS 15 GRAMS... UD PRN PO 07/18/17 10:30 08/17/17 10:29 Glucose (Glucose Chew Tab) 4-8 Tablets 4 Tabl... UD PRN PO 07/18/17 10:30 08/17/17 10:29 Dextrose (Dextrose 50% 50ML Syringe) 25-50ML OF 50% DW IV FOR... UD PRN IV 07/18/17 10:30 08/17/17 10:29 Glucagon (Glucagon Inj) 1 mg UD PRN SQ 07/18/17 10:30 08/17/17 10:29 Physical Exam Date Time Temp Pulse Resp B/P (MAP) Pulse Ox O2 Delivery O2 Flow Rate FiO2 07/18/17 09:45 36.6 83 18 174/71 (105) 97 Room Air 07/18/17 09:06 71 22 170/75 97 Room Air 07/18/17 07:50 94 Room Air 07/18/17 07:29 75 07/18/17 07:22 70 20 180/84 94 Room Air 07/18/17 06:05 71 18 159/66 98 Room Air 07/18/17 05:42 84 20 148/79 98 Room Air 07/18/17 04:43 66 18 133/67 98 Room Air 07/18/17 03:06 79 07/18/17 02:37 72 18 175/88 96 Room Air 07/18/17 00:30 71 18 17/80 96 Room Air 07/18/17 00:00 Room Air 07/17/17 23:56 76 07/17/17 22:36 37.3 94 18 173/69 96 Room Air General Appearance: WD/WN, no apparent distress Head: normocephalic, atraumatic Eyes: normal inspection, EOMI, sclerae normal ENT: normal ENT inspection, hearing grossly normal, pharynx normal Neck: supple, no adenopathy, thyroid normal, trachea midline Respiratory/Chest: lungs clear, normal breath sounds, no respiratory distress, + pertinent finding (Chest wall tenderness) Cardiovascular: regular rate, rhythm, no gallop, + systolic murmur Abdomen/GI: normal bowel sounds, non tender, soft, no organomegaly Back: normal inspection, no CVA tenderness Extremities/Musculoskelatal: normal inspection, no calf tenderness, normal capillary refill, non-tender Neurologic/Psych: alert, normal mood/affect, oriented x 3 Skin: normal color, no rash, + pertinent finding (Right buttock abscesses, not currently during) Lymphatic: no adenopathy Laboratory Results Last 24 Hours Test 07/18/17 00:05 07/18/17 00:10 07/18/17 00:34 07/18/17 00:39 White Blood Count 6.31 K/uL Red Blood Count 4.20 M/uL Hemoglobin 13.1 g/dL Hematocrit 39.5 % Mean Corpuscular Volume 94.0 fL Mean Corpuscular Hemoglobin 31.2 pg Mean Corpuscular Hemoglobin Concent 33.2 g/dl Platelet Count 168 K/uL Mean Platelet Volume 10.6 fL Neutrophils (%) (Auto) 55.8 % Lymphocytes (%) (Auto) 29.6 % Monocytes (%) (Auto) 13.5 % Eosinophils (%) (Auto) 0.6 % Basophils (%) (Auto) 0.2 % Neutrophils # (Auto) 3.52 K/uL Lymphocytes # (Auto) 1.87 K/uL Monocytes # (Auto) 0.85 K/uL Eosinophils # (Auto) 0.04 K/uL Basophils # (Auto) 0.01 K/uL RDW Standard Deviation 52.7 fL RDW Coefficient of Variation 15.3 % Immature Granulocyte % (Auto) 0.3 % Immature Granulocyte # (Auto) 0.02 K/uL Sodium Level 141 mmol/L Potassium Level mmol/L 4.0 mmol/L Chloride Level 107 mmol/L Carbon Dioxide Level 25 mmol/L Anion Gap 9.0 mmol/L Blood Urea Nitrogen 20 mg/dl Creatinine 1.10 mg/dl Est Creatinine Clear Calc Drug Dose 42.0 ml/min Estimated GFR () 54.5 Estimated GFR (Non- 47.0 BUN/Creatinine Ratio 18.1 Random Glucose 137 mg/dl Calcium Level 9.6 mg/dl Magnesium Level mg/dl 2.2 mg/dl Total Bilirubin 0.5 mg/dl Aspartate Amino Transf (AST/SGOT) U/L 38 U/L Alanine Aminotransferase (ALT/SGPT) 50 U/L Alkaline Phosphatase 100 U/L Troponin I 0.019 ng/ml Pro-B-Type Natriuretic Peptide 943 pg/ml Total Protein 7.8 gm/dl Albumin 3.7 gm/dl Globulin 4.1 gm/dl Albumin/Globulin Ratio 0.9 Urine Color YELLOW Urine Appearance CLEAR Urine pH 6.0 Urine Specific [place] 1.017 Urine Protein NEG Urine Glucose (UA) 2+ Urine Ketones NEG Urine Occult Blood NEG Urine Nitrite NEG Urine Bilirubin NEG Urine Urobilinogen NEG Urine Leukocyte Esterase NEG Prothrombin Time 10.6 SECONDS Prothromb Time International Ratio 1.0 D-Dimer 580 ug/L FEU Test 07/18/17 03:26 07/18/17 08:37 07/18/17 11:57 Troponin I 0.041 ng/ml 0.044 ng/ml Bedside Glucose 127 mg/dl CT ANGIOGRAM OF THE CHEST CLINICAL HISTORY: Atypical chest pain. COMPARISON STUDY: Chest CT dated 04/17/2014 7. Additional findings as above. And 04/28/2016. Chest x-ray dated 07/18/2017. TECHNIQUE: Following the IV administration of 93 cc of Optiray 320, CT angiogram of the chest was performed from the upper abdomen to the thoracic inlet utilizing the pulmonary embolus protocol. Images are reviewed in the axial, sagittal, and coronal planes. 3-D MIPS images are created and assessed. IV contrast was administered without complication. A dose lowering technique was utilized adhering to the principles of ALARA. CT DOSE: 376.90 mGy.cm FINDINGS: Thyroid: Imaged portions of the thyroid gland are normal in size and attenuation. A subcentimeter low-attenuation nodule is suggested in the left lobe. Thoracic aorta: There is atherosclerotic calcification of the thoracic aorta, which is normal in caliber and demonstrates standard 3-vessel arch anatomy. No dissection is seen. There is high-grade stenosis identified within the proximal left subclavian artery. Pulmonary vasculature: The main pulmonary arteries are mildly enlarged suggesting pulmonary artery hypertension. There are no filling defects identified in main, lobar, or segmental pulmonary branches to suggest pulmonary embolus. Heart: The patient is status post midline sternotomy an aortic valve surgery. The heart is enlarged and without pericardial effusion. The coronary arteries are densely calcified. Lungs and pleural spaces: Evaluation of the lung parenchyma is modestly degraded by motion artifact. Linear atelectasis versus scarring is present at both lung bases. Foci of tree-in-bud nodularity are present in the right upper lobe. The trachea and central airways are clear. A 5 m groundglass focus at the left apex as seen on image #[id number]. This is unchanged from 04/17/2014. Mediastinum: Retrosternal scarring is similar to previous. There is no mediastinal lymphadenopathy. Elisha: Clear. Axillae: There is no axillary lymphadenopathy. Upper abdomen: Cholecystectomy clips are noted. There is a tiny hiatal hernia. Partially visualized upper abdominal viscera is within normal limits. Skeletal structures: The skeletal structures are osteopenic. No lytic or blastic bony lesions are seen. IMPRESSION: 1. There is no evidence of pulmonary embolus in the main, lobar, or segmental pulmonary arteries. 2. There is no lobar consolidation or pleural effusion. 3. Foci of tree-in-bud nodularity are seen throughout the right upper lobe. This likely represents an infectious/inflammatory pneumonitis. Clinical correlation will be required. This has been present on prior examinations dating back to 2013 and may be chronic. 4. A 5 mm groundglass focus at the left apex is unchanged dating back to 04/17/2014. 5. Cardiomegaly. 6. There is high-grade stenosis seen in the proximal left subclavian artery. Assessment & Plan 82-year-old diabetic female with history of recurrent staphylococcal buttock abscesses, now with possible reaction to doxycycline, previous reaction to Bactrim. While patient is in hospital, would give IV daptomycin, but I will consider ranging use of dalvabancin as an outpatient when she is able to be discharged. Will follow.
--- NOTE | 2017-07-18 15:31 | ECHOCARDIOGRAM REPORT ---
*NOTICE TO RECEIVING DEMOCRAT AGENCY This information is strictly Confidential and protected under [place] law. [place] law prohibits you from making any further disclosure of this information unless further disclosure is expressly permitted by the written consent of the person to whom it pertains or is authorized by law. A general authorization for the release of medical or other information is not sufficient for this purpose. Hospital accepts no responsibility if the information is made available to any other person, INCLUDING THE PATIENT. Interpretation Summary * Name: JACKELYN JHAVERI Study Date: 07/18/2017 08:34 AM BP: 170/75 mmHg * Patient Location: [facility] HR: 74 * : 1935 (M/d/yyyy) Gender: Female Height: 66 in * Age: 82 yrs Ethnicity: [place] Weight: 169 lb * Ordering Physician: Stella Patricia * Referring Physician: Self, Referred * Performed By: Tatum Garcia RCS * * Reason For Study: CHEST PAIN * BSA: 1.9 m2 * -- Conclusions -- * Left ventricular systolic function is normal. * No regional wall motion abnormalities noted. * Ejection Fraction = 55-60%. * There is borderline concentric left ventricular hypertrophy. * Diastolic dysfunction, Grade II (pseudonormalization pattern). * The prosthetic aortic valve appears to open well. * There is mild mitral regurgitation. Procedure Details * A complete two-dimensional transthoracic echocardiogram was performed (2D, M-mode, Doppler and color flow Doppler). Left Ventricle * The left ventricle is normal in size. * There is borderline concentric left ventricular hypertrophy. * Left ventricular systolic function is normal. * Ejection Fraction = 55-60%. * No regional wall motion abnormalities noted. Right Ventricle * The right ventricle is grossly normal size. * The right ventricular systolic function is normal as assessed by tricuspid annular plane systolic excursion (TAPSE) (normal >1.5 cm). Atria * The left atrium is mildly dilated. * The right atrium is mildly dilated. * There is no evidence of atrial septal defect, but resolution does not allow assessment for a patent foramen ovale. Mitral Valve * The mitral valve anatomy is normal. * Mitral stenosis is absent. * There is mild mitral regurgitation. Tricuspid Valve * The tricuspid valve anatomy is normal. * Significant tricuspid regurgitation is absent. Aortic Valve * The prosthetic aortic valve is well-seated. * The prosthetic aortic valve appears to open well. * Doppler gradients across the aortic prosthesis are at the upper limits of normal. Pulmonic Valve * The pulmonary valve is inadequately visualized, but the Doppler data is adequate for interpretation. Great Vessels * The aortic root is normal size. * The pulmonary is not well visualized. Pericardium/Pleural * There is no pericardial effusion. Great Vessels * Normal inferior vena cava size and collapsability with sniff indicates a normal right atrial pressure of 3 mmHg Left Ventricular Diastolic Function * Diastolic dysfunction, Grade II (pseudonormalization pattern). MMode 2D Measurements and Calculations IVSd 2.1 cm IVSs 2.2 cm LVIDd 4.3 cm LVIDs 2.9 cm LVPWd 1.5 cm LVPWs 1.7 cm IVS/LVPW 1.4 FS 31.9 % EDV(Teich) 81.2 ml ESV(Teich) 32.2 ml EF(Teich) 60.4 % EDV(cubed) 77.3 ml ESV(cubed) 24.4 ml EF(cubed) 68.4 % % IVS thick 4.6 % % LVPW thick 8.7 % LV mass(C)d 343.6 grams LV mass(C)dI 184.5 grams/m\S\2 LV mass(C)s 236.2 grams LV mass(C)sI 126.8 grams/m\S\2 SV(Teich) 49.0 ml SI(Teich) 26.3 ml/m\S\2 SV(cubed) 52.9 ml SI(cubed) 28.4 ml/m\S\2 Ao root diam 3.3 cm Ao root area 8.4 cm\S\2 LA dimension 4.5 cm LA/Ao 1.4 LVOT diam 2.0 cm LVOT area 3.2 cm\S\2 LVAd ap4 34.2 cm\S\2 LVLd ap4 8.1 cm EDV(MOD-sp4) 116.9 ml EDV(sp4-el) 122.2 ml LVAs ap4 24.7 cm\S\2 LVLs ap4 7.3 cm ESV(MOD-sp4) 68.7 ml ESV(sp4-el) 70.8 ml EF(MOD-sp4) 41.2 % EF(sp4-el) 42.1 % LVAd ap2 34.4 cm\S\2 LVLd ap2 8.3 cm EDV(MOD-sp2) 116.8 ml EDV(sp2-el) 121.4 ml LVAs ap2 21.2 cm\S\2 LVLs ap2 6.3 cm ESV(MOD-sp2) 59.4 ml ESV(sp2-el) 60.1 ml EF(MOD-sp2) 49.1 % EF(sp2-el) 50.5 % LVLd %diff 2.0 % EDV(MOD-bp) 118.4 ml LVLs %diff -15.29 % ESV(MOD-bp) 68.3 ml EF(MOD-bp) 42.3 % SV(MOD-sp4) 48.2 ml SI(MOD-sp4) 25.9 ml/m\S\2 SV(MOD-sp2) 57.4 ml SI(MOD-sp2) 30.8 ml/m\S\2 SV(MOD-bp) 50.0 ml SI(MOD-bp) 26.9 ml/m\S\2 SV(sp4-el) 51.5 ml SI(sp4-el) 27.6 ml/m\S\2 SV(sp2-el) 61.3 ml SI(sp2-el) 32.9 ml/m\S\2 Doppler Measurements and Calculations MV E max jcarlos 108.4 cm/sec MV A max jcarlos 118.6 cm/sec MV E/A 0.91 MV P1/2t max jcarlos 120.8 cm/sec MV P1/2t 63.7 msec MVA(P1/2t) 3.5 cm\S\2 MV dec slope 555.0 cm/sec\S\2 MV dec time 0.14 sec Ao V2 max 244.8 cm/sec Ao max PG 24.0 mmHg Ao max PG (full) 22.4 mmHg MASON(V,A) 0.84 cm\S\2 MASON(V,D) 0.84 cm\S\2 LV V1 max PG 1.6 mmHg LV V1 max 63.6 cm/sec MR max jcarlos 621.5 cm/sec MR max PG 154.5 mmHg PA V2 max 70.7 cm/sec PA max PG 2.0 mmHg PI max jcarlos 198.4 cm/sec PI max PG 15.8 mmHg PI dec slope 210.7 cm/sec\S\2 PI P1/2t 275.9 msec TR max jcarlos 326.1 cm/sec
[2017-07-18] MEDS ORDERED: DAPTOmycin IV 300 MG in SYRINGE 0 ML IV SCH (16:00)
[2017-07-18] MEDS ORDERED: LOSARTAN POTASSIUM 50 MG TAB PO STA (16:49)
[2017-07-18] MEDS ORDERED: ISOSORBIDE MONONITRATE 30 MG TABCR PO ONE (17:15)
[2017-07-18] MEDS ORDERED: FAMOTIDINE IV INJ 20 MG in DEXTROSE 5% 100ML 100 ML IV SCH (18:45)
[2017-07-18] MEDS ORDERED: METOPROLOL SUCC 50MG EXT REL TAB PO SCH (21:00)
[2017-07-18] MEDS ORDERED: ZOLPIDEM TARTRATE 10 MG TAB PO SCH (21:00)
[2017-07-18] MEDS ORDERED: INSULIN GLARGINE SOLOSTAR 100 UNITS/ML 3 ML PEN SC SCH (21:00)
[2017-07-18] MEDS ORDERED: MIRTAZAPINE SOLTAB 15 MG PO SCH (21:00)
[2017-07-18] MEDS: SUCRALFATE 1 GM/10 ML UDC PO SCH (21:02)
[2017-07-18] MEDS: FAMOTIDINE IV INJ 20 MG in SYRINGE 3 ML IV SCH (21:02)
[2017-07-19 07:32] LABS: BASO % 0.2 %; BASO ABS # 0.01 K/uL (0-0.2); EOS % 1.6 %; EOS ABS # 0.09 K/uL (0-0.5); HEMATOCRIT 40.2 % (37-47); HEMOGLOBIN 13.2 g/dL (12.0-16.0); IG# 0.01 K/uL (0.00-0.02); LYMPH ABS # 2.09 K/uL (1.2-3.4); MEAN CELL VOLUME 93.9 fL (80-100); MEAN CORPUSCULAR HEMOGLOBIN 30.8 pg (25-34); MEAN CORPUSCULAR HGB CONC 32.8 g/dl (32-36); MEAN PLATELET VOLUME 10.3 fL (7.4-10.4); MONO % 13.8 %; NEUT % 48.2 %; PLATELET COUNT 175 K/uL (130-400); RED CELL DISTRIBUTION WIDTH CV 15.4 % (11.5-14.5); RED CELL DISTRIBUTION WIDTH SD 52.5 fL (36.4-46.3)
[2017-07-19 07:56] VITALS: BP 159/67; PULSE 71; TEMP 36.8; O2SAT 95
[2017-07-19 08:01] LABS: CALCIUM 9.8 mg/dl (8.5-10.1); POTASSIUM 3.9 mmol/L (3.5-5.1)
[2017-07-19] MEDS: INSULIN ASPART 100 UNITS/ML 3 ML PEN SC SCH ×2 (08:25→13:10)
[2017-07-19] MEDS ORDERED: DAPTOMYCIN IV SCH (09:00)
[2017-07-19] MEDS ORDERED: LOSARTAN POTASSIUM 50 MG TAB PO SCH (09:00)
[2017-07-19] MEDS ORDERED: ISOSORBIDE MONONITRATE 60 MG TABCR PO SCH (09:00)
[2017-07-19] MEDS ORDERED: SODIUM CHLORIDE 0.9% IV SCH (09:00)
[2017-07-19] MEDS: SUCRALFATE 1 GM/10 ML UDC PO SCH ×2 (09:43→13:10)
[2017-07-19] MEDS: GABAPENTIN 100 MG CAP PO SCH ×2 (09:43→13:10)
[2017-07-19] MEDS: CALCIUM 600MG + VIT D 400 IU TAB PO SCH (09:44)
[2017-07-19] MEDS: CHOLECALCIFEROL 1000 INTER.UNIT TAB PO SCH (09:44)
[2017-07-19] MEDS: PANTOprazole SOD 40 MG TAB PO SCH (09:45)
[2017-07-19] MEDS: ROSUVASTATIN CALCIUM 20 MG TAB PO SCH (09:46)
[2017-07-19] MEDS: ASPIRIN 81 MG ECTAB PO SCH (09:47)
[2017-07-19] MEDS: CLOPIDOGREL BISULFATE 75 MG TAB PO SCH (09:47)
[2017-07-19] MEDS: HEPARIN SOD 5000 UNIT/0.5 ML CARP SQ SCH (09:48)
[2017-07-19] MEDS: FAMOTIDINE IV INJ 20 MG in SYRINGE 3 ML IV SCH (09:52)
[2017-07-19 11:27] VITALS: BP 126/68; PULSE 79; TEMP 36.5; O2SAT 95
--- NOTE | 2017-07-19 11:27 | Cardiology Consultation ---
Cardiology Consultation Date of Consultation: Jul 19, 2017. History of Present Illness Mrs. Ponce is a very pleasant 82-year-old woman known to me from the outpatient setting readmitted yesterday with chest pain found to have mildly elevated troponin. Her history is remarkable for severe coronary artery disease and aortic stenosis status post 3 vessel CABG and bioprosthetic aortic valve replacement in March of 2016 with course complicated by postoperative stroke. Also has hypertension, diabetes, peripheral artery disease with known carotid artery stenosis and left subclavian artery stenosis and polymyalgia rheumatica on steroids and frequent prior admissions/ED visits for non-cardiac chest pain. Admission developed left-sided chest pain which persisted for approximately 4 hours. Pain reminiscent of prior noncardiac pain in the past. No associated shortness of breath, palpitations or presyncope. Endorse significant anxiety regarding pain presented to the ED. Initially on presentation hypertensive to the 180s. Treated with nitro paste at home cardiac regimen. Initial troponins negative but subsequent troponin yesterday afternoon positive at 0.2 trended up to 0.4 before trending down again the same. Presenting EKG showed lateral ST depressions consistent with prior EKGs although slightly more pronounced. Echocardiogram reviewed and showed well-functioning bioprosthetic AVR with no new regional wall motion abnormalities. Patient endorses left flank side pain intermittently since admission the same as which she has had for the last year. Left-sided chest pain which brought her to hospital as not recurred. Prior to event had been in usual state of health other than MRSA buttocks abscess for which started on doxycycline yesterday and ongoing issues with osteoarthritis involving her hand for which underwent a lidocaine/steroid injection on day of admission. Past Medical/Surgical History 1. Coronary artery disease status post three-vessel CABG--stable CCS class 1-2 symptoms 2. Bioprosthetic AVR--normal expected transvalvular gradients on last echo 2015 3. Chronic musculoskeletal chest pain--post sternotomy, costochondritis, polymyalgia rheumatica 4. Peripheral artery disease--right ICA stenosis, left subclavian stenosis-- followed by vascular surgery at [facility] 5. Postoperative MCA stroke--residual language deficits, no documented atrial fibrillation 6. Type 2 diabetes--on insulin therapy 7. Polymyalgia rheumatica--followed by Dr. Starr, on chronic steroids 8. Hypertension 9. Chronic kidney disease--followed by Dr. Ricci Family History Cancer Diabetes mellitus FHx: aneurysm Heart disease Hypertension Social History Smoking Status: Never Smoker History of Alcohol Use: No Review of Systems 10 point review of systems was completed and was otherwise negative unless stated in HPI Allergies Coded Allergies: Cefadroxil (Verified Allergy, Intermediate, UNKNOWN, 07/18/17) Clindamycin (Verified Allergy, Intermediate, UNKNOWN, 07/18/17) Levofloxacin (Verified Allergy, Intermediate, UNKNOWN, 07/18/17) Metronidazole (Verified Allergy, Intermediate, UNKNOWN, 07/18/17) Amoxicillin (Verified Adverse Reaction, Mild, diarrhea, 07/18/17) Clavulanic Acid (Verified Adverse Reaction, Mild, diarrhea, 07/18/17) Metformin (Verified Adverse Reaction, Mild, diarreha, 07/18/17) Sitagliptin (Verified Adverse Reaction, Mild, diarreha, 07/18/17) Medications Current Inpatient Medications Medications (Trade) Dose Ordered Sig/Sincere Route Start Time Stop Time Status Last Admin Dose Admin Ioversol (Optiray 320) 100 ml UD PRN IV 07/18/17 01:30 07/22/17 01:29 Acetaminophen (Tylenol Tab) 650 mg Q4H PRN PO 07/18/17 08:00 08/17/17 07:59 Al Hydrox/Mg Hydrox/Simethicone (Maalox Max Susp) 15 ml Q4H PRN PO 07/18/17 08:00 08/17/17 07:59 Aspirin (Ecotrin Tab) 81 mg QAM PO 07/18/17 09:00 08/17/17 08:59 07/19/17 09:47 81 MG Clopidogrel Bisulfate (plAVix TAB) 75 mg DAILY PO 07/18/17 09:00 08/17/17 08:59 07/19/17 09:47 75 MG Nitroglycerin (Nitrostat Tab) 0.4 mg UD PRN UT 07/18/17 08:00 08/17/17 07:59 Pantoprazole Sodium (Protonix Tab) 40 mg QAM PO 07/18/17 09:00 08/17/17 08:59 07/19/17 09:45 40 MG Rosuvastatin Calcium (Crestor Tab) 40 mg DAILY PO 07/18/17 09:00 08/17/17 08:59 07/19/17 09:46 40 MG Zolpidem Tartrate (Ambien Tab) 10 mg HS PO 07/18/17 21:00 08/17/17 20:59 07/18/17 21:02 10 MG Calcium/Vitamin D (Caltrate Plus Tab) 1 tab BID PO 07/18/17 09:00 08/17/17 08:59 07/19/17 09:44 1 TAB Cholecalciferol (Vitamin D Tab) 2,000 inter.unit BID PO 07/18/17 09:00 08/17/17 08:59 07/19/17 09:44 2,000 INTER.UNIT Insulin Glargine (Lantus Solostar Pen) 15 units QPM SC 07/18/17 21:00 08/17/17 20:59 Metoprolol Succinate (Toprol Xl Tab) 100 mg QPM PO 07/18/17 21:00 08/17/17 20:59 07/18/17 21:03 100 MG Miscellaneous (Iv Fluids Completed) 1 ea PRN PRN N/A 07/18/17 08:45 07/18/18 08:44 Gabapentin (Neurontin Cap) 100 mg TID PO 07/18/17 09:00 08/17/17 20:59 07/19/17 09:43 100 MG Prednisone (PredniSONE TAB) 5 mg DAILY PO 07/18/17 09:00 08/17/17 08:59 07/19/17 09:45 5 MG Heparin Sodium (Porcine) (Heparin Sq 5000 Unit/0.5ml) 5,000 unit Q12 SQ 07/18/17 09:00 08/17/17 08:59 07/19/17 09:48 5,000 UNIT Insulin Aspart (novoLOG ASPART) SLIDING SCALE G... ACHS SC 07/18/17 11:00 08/17/17 10:59 07/18/17 18:25 2 UNITS Glucose (Glucose 40% Gel) 15-30 GRAMS 15 GRAMS... UD PRN PO 07/18/17 10:30 08/17/17 10:29 Glucose (Glucose Chew Tab) 4-8 Tablets 4 Tabl... UD PRN PO 07/18/17 10:30 08/17/17 10:29 Dextrose (Dextrose 50% 50ML Syringe) 25-50ML OF 50% DW IV FOR... UD PRN IV 07/18/17 10:30 08/17/17 10:29 Glucagon (Glucagon Inj) 1 mg UD PRN SQ 07/18/17 10:30 08/17/17 10:29 Daptomycin 300 mg/ Syringe 6 ml @ 3 mls/min Q24H IV 07/18/17 16:00 07/28/17 15:59 07/18/17 17:10 3 MLS/MIN Isosorbide Mononitrate (Imdur Ext Rel Tab) 60 mg QAM PO 07/19/17 09:00 08/17/17 08:59 07/19/17 09:46 60 MG Losartan Potassium (coZAAR TAB) 100 mg DAILY PO 07/19/17 09:00 08/17/17 08:59 07/19/17 09:45 100 MG Sucralfate (Carafate Susp) 1 gm QID PO 07/18/17 21:00 08/17/17 20:59 07/19/17 09:43 1 GM Famotidine 20 mg/ Syringe 5 ml @ 2.5 mls/min Q12H IV 07/18/17 20:00 08/17/17 19:59 07/19/17 09:52 2.5 MLS/MIN Physical Exam Vital Signs Past 12 Hours Date Time Temp Pulse Resp B/P (MAP) Pulse Ox O2 Delivery O2 Flow Rate FiO2 07/19/17 07:56 36.8 71 16 159/67 (97) 95 Room Air 07/19/17 04:00 Room Air 07/19/17 00:01 Room Air 07/18/17 23:44 37.0 79 17 97/48 (64) 93 Room Air General: Comfortable, no acute distress Eyes: Sclerae anicteric, extraocular movements intact HENT: Oropharynx clear mucous membranes moist Neck: Normal carotid upstrokes, no bruits. No JVD. Lungs: Clear to auscultation bilaterally, no rhonchi or wheezes. Tenderness to palpation along left flank presenting pain unable to be reproduced Cardiac: Regular rate and rhythm, 2/6 systolic ejection murmur with crisp bioprosthetic closure Vascular: 2+ radial, DP and PT pulses. No varicosities. Abdomen: Soft, nontender, nondistended, positive bowel sounds. Extremities: Well perfused, no peripheral edema Skin: No rashes or lesions. Neuro: Nonfocal Psych: Alert orient x3, normal affect and mood Data Laboratory Results: Last 24 Hours Test 07/18/17 11:57 07/18/17 13:44 07/18/17 15:07 07/18/17 16:15 Bedside Glucose 127 mg/dl 134 mg/dl Troponin I 0.245 ng/ml Total Creatine Kinase 41 U/L Test 07/18/17 20:19 07/18/17 21:54 07/19/17 06:48 07/19/17 06:49 Bedside Glucose 168 mg/dl 117 mg/dl Troponin I 0.488 ng/ml 0.353 ng/ml White Blood Count 5.80 K/uL Red Blood Count 4.28 M/uL Hemoglobin 13.2 g/dL Hematocrit 40.2 % Mean Corpuscular Volume 93.9 fL Mean Corpuscular Hemoglobin 30.8 pg Mean Corpuscular Hemoglobin Concent 32.8 g/dl Platelet Count 175 K/uL Mean Platelet Volume 10.3 fL Neutrophils (%) (Auto) 48.2 % Lymphocytes (%) (Auto) 36.0 % Monocytes (%) (Auto) 13.8 % Eosinophils (%) (Auto) 1.6 % Basophils (%) (Auto) 0.2 % Neutrophils # (Auto) 2.80 K/uL Lymphocytes # (Auto) 2.09 K/uL Monocytes # (Auto) 0.80 K/uL Eosinophils # (Auto) 0.09 K/uL Basophils # (Auto) 0.01 K/uL RDW Standard Deviation 52.5 fL RDW Coefficient of Variation 15.4 % Immature Granulocyte % (Auto) 0.2 % Immature Granulocyte # (Auto) 0.01 K/uL Sodium Level 138 mmol/L Potassium Level 3.9 mmol/L Chloride Level 103 mmol/L Carbon Dioxide Level 28 mmol/L Anion Gap 7.0 mmol/L Blood Urea Nitrogen 16 mg/dl Creatinine 1.00 mg/dl Est Creatinine Clear Calc Drug Dose 46.2 ml/min Estimated GFR () 61.2 Estimated GFR (Non- 52.8 BUN/Creatinine Ratio 15.6 Random Glucose 119 mg/dl Calcium Level 9.8 mg/dl Magnesium Level 2.4 mg/dl Imaging: CXR - no acute cardiopulmonary process CTA - No pulmonary embolism EKG - sinus rhythm, lateral ST depressions, previously noted on prior ECGs Echo - preserved LV function, well functioning bioprosthetic AVR, mild MR Telemetry reviewed: sinus rhythm; no events. Assessment & Plan 1. Chest pain, Midly elevated troponin 2. Coronary artery disease status post three-vessel CABG 3. Hypertension 4. Chronic musculoskeletal chest pain 5. Peripheral artery disease 6. Type 2 diabetes 7. Well functioning bioprosthetic AVR - Presenting chest pain has not recurred. Residual chest symptoms unchanged from chronic symptoms over last year. - Suspect troponin elevation related to demand ischemia in the setting of hypertension, LVH and underlying diffuse CAD. Lower suspicion for true ACS event but in that setting, with his known coronary anatomy/echo findings, unlikely to have high-risk disease. Going forward-- - Recommend increased antihypertensives/antianginal regimen -- Imdur increased to 60mg, Losartan to 100mg - Continue current clopidogrel, statin and beta-jaron. - No need for additional cardiac testing at this time. - From a cardiac standpoint OK for discharge to home. Can follow-up with me in 2-3 weeks.
[2017-07-19] MEDS ORDERED: LOSA1TAB38 PO (11:51)
[2017-07-19] MEDS ORDERED: IMDSR/60 PO (11:51)
[2017-07-19] MEDS ORDERED: GABA-112 PO (11:52)
[2017-07-19] MEDS ORDERED: PRD/1 PO (11:54)
--- NOTE | 2017-07-19 12:11 | Discharge Summary ---
Discharge Summary Date of Service Jul 19, 2017. Discharge Summary Admission Date: Jul 18, 2017 at 08:00 Discharge Date: Jul 19, 2017 Discharge Disposition: Home Principal Diagnosis: Musculoskeletal chest pain Problems/Secondary Diagnoses: CAD s/p CABG aortic valve repair w/ bioprosthetic valve HTN CVA PAD HLD CKD stage III PMR MSSA buttock abscess T2DM LALA GERD 5 mm ground-glass focus at the left apex is unchanged dating back to 04/17/2014 L subclavian artery stenosis R internal carotid stenosis Immunizations: Have You Had Influenza Vaccine: No Influenza Vaccine Date: Mar 17, 2011 History of Tetanus Vaccine?: unknown History of Pneumococcal: No History of Hepatitis B Vaccine: No Procedures: SINGLE VIEW CHEST CLINICAL HISTORY: Atypical chest pain. FINDINGS: An AP, portable, upright chest radiograph is compared to study dated 06/25/2017. The examination is degraded by portable technique and patient rotation. The patient is status post midline sternotomy and aortic valve surgery. The heart is enlarged and there is atherosclerotic calcification of the thoracic aorta. The pulmonary vasculature is noncongested. Chronic interstitial thickening is similar to previous. No airspace consolidation or pleural effusion is identified. No pneumothorax is seen. The skeletal structures are osteopenic. The bony thorax is grossly intact. IMPRESSION: Cardiomegaly with no acute cardiopulmonary abnormality. Electronically signed by: Efren Taylor M.D. 07/18/2017 7:22 AM Dictated Date/Time: 07/18/2017 7:21 AM The status of this report is Signed. Draft = Not yet reviewed or approved by Radiologist. Signed = Reviewed and approved by Radiologist. CT ANGIOGRAM OF THE CHEST CLINICAL HISTORY: Atypical chest pain. COMPARISON STUDY: Chest CT dated 04/17/2014 7. Additional findings as above. And 04/28/2016. Chest x-ray dated 07/18/2017. TECHNIQUE: Following the IV administration of 93 cc of Optiray 320, CT angiogram of the chest was performed from the upper abdomen to the thoracic inlet utilizing the pulmonary embolus protocol. Images are reviewed in the axial, sagittal, and coronal planes. 3-D MIPS images are created and assessed. IV contrast was administered without complication. A dose lowering technique was utilized adhering to the principles of ALARA. CT DOSE: 376.90 mGy.cm FINDINGS: Thyroid: Imaged portions of the thyroid gland are normal in size and attenuation. A subcentimeter low-attenuation nodule is suggested in the left lobe. Thoracic aorta: There is atherosclerotic calcification of the thoracic aorta, which is normal in caliber and demonstrates standard 3-vessel arch anatomy. No dissection is seen. There is high-grade stenosis identified within the proximal left subclavian artery. Pulmonary vasculature: The main pulmonary arteries are mildly enlarged suggesting pulmonary artery hypertension. There are no filling defects identified in main, lobar, or segmental pulmonary branches to suggest pulmonary embolus. Heart: The patient is status post midline sternotomy an aortic valve surgery. The heart is enlarged and without pericardial effusion. The coronary arteries are densely calcified. Lungs and pleural spaces: Evaluation of the lung parenchyma is modestly degraded by motion artifact. Linear atelectasis versus scarring is present at both lung bases. Foci of tree-in-bud nodularity are present in the right upper lobe. The trachea and central airways are clear. A 5 m groundglass focus at the left apex as seen on image #[id number]. This is unchanged from 04/17/2014. Mediastinum: Retrosternal scarring is similar to previous. There is no mediastinal lymphadenopathy. Elisha: Clear. Axillae: There is no axillary lymphadenopathy. Upper abdomen: Cholecystectomy clips are noted. There is a tiny hiatal hernia. Partially visualized upper abdominal viscera is within normal limits. Skeletal structures: The skeletal structures are osteopenic. No lytic or blastic bony lesions are seen. IMPRESSION: 1. There is no evidence of pulmonary embolus in the main, lobar, or segmental pulmonary arteries. 2. There is no lobar consolidation or pleural effusion. 3. Foci of tree-in-bud nodularity are seen throughout the right upper lobe. This likely represents an infectious/inflammatory pneumonitis. Clinical correlation will be required. This has been present on prior examinations dating back to 2013 and may be chronic. 4. A 5 mm groundglass focus at the left apex is unchanged dating back to 04/17/2014. 5. Cardiomegaly. 6. There is high-grade stenosis seen in the proximal left subclavian artery. 7. Additional findings as above. Electronically signed by: Efren Taylor M.D. 07/18/2017 7:21 AM Dictated Date/Time: 07/18/2017 7:14 AM The status of this report is Signed. Draft = Not yet reviewed or approved by Radiologist. Signed = Reviewed and approved by Radiologist. Interpretation Summary * Name: JACKELYN JHAVERI Study Date: 07/18/2017 08:34 AM BP: 170/75 mmHg * Patient Location: [facility] HR: 74 * : 1935 (M/d/yyyy) Gender: Female Height: 66 in * Age: 82 yrs Ethnicity: CA Weight: 169 lb * Ordering Physician: Stella Patricia * Referring Physician: Self, Referred * Performed By: Tatum Garcia RCS * * Reason For Study: CHEST PAIN * BSA: 1.9 m2 * -- Conclusions -- * Left ventricular systolic function is normal. * No regional wall motion abnormalities noted. * Ejection Fraction = 55-60%. * There is borderline concentric left ventricular hypertrophy. * Diastolic dysfunction, Grade II (pseudonormalization pattern). * The prosthetic aortic valve appears to open well. * There is mild mitral regurgitation. Procedure Details * A complete two-dimensional transthoracic echocardiogram was performed (2D, M- mode, Doppler and color flow Doppler). Left Ventricle * The left ventricle is normal in size. * There is borderline concentric left ventricular hypertrophy. * Left ventricular systolic function is normal. * Ejection Fraction = 55-60%. * No regional wall motion abnormalities noted. Right Ventricle * The right ventricle is grossly normal size. * The right ventricular systolic function is normal as assessed by tricuspid annular plane systolic excursion (TAPSE) (normal >1.5 cm). Atria * The left atrium is mildly dilated. * The right atrium is mildly dilated. * There is no evidence of atrial septal defect, but resolution does not allow assessment for a patent foramen ovale. Mitral Valve * The mitral valve anatomy is normal. * Mitral stenosis is absent. * There is mild mitral regurgitation. Tricuspid Valve * The tricuspid valve anatomy is normal. * Significant tricuspid regurgitation is absent. Aortic Valve * The prosthetic aortic valve is well-seated. * The prosthetic aortic valve appears to open well. * Doppler gradients across the aortic prosthesis are at the upper limits of normal. Pulmonic Valve * The pulmonary valve is inadequately visualized, but the Doppler data is adequate for interpretation. Great Vessels * The aortic root is normal size. * The pulmonary is not well visualized. Pericardium/Pleural * There is no pericardial effusion. Great Vessels * Normal inferior vena cava size and collapsability with sniff indicates a normal right atrial pressure of 3 mmHg Left Ventricular Diastolic Function * Diastolic dysfunction, Grade II (pseudonormalization pattern). Consultations: Cardiology- Dr. Walters ID- Dr. Benavides Medication Reconciliation New Medications: Sucralfate (Sucralfate) 1 Gm/10 Ml Susp 1 GM PO QID for 7 Days, #28 GM Changed Medications: Isosorbide Mononitrate (Isosorbide Mononitrate ER) 60 Mg Tabcr 60 MG PO DAILY for 30 Days, #30 TAB (Changed from: Isosorbide Mononitrate ( Isosorbide Mononitrate ER) 30 Mg Tabcr 30 Mg PO QAM) Losartan Potassium (Cozaar) 100 Mg Tab 1 TAB PO DAILY for 30 Days, #30 TAB 5 Refills (Changed from: Losartan Potassium 50 Mg Tab 50 Mg PO DAILY) Continued Medications: Acetaminophen (Tylenol Extra Strength) 500 Mg Tab 1000 MG PO TID PRN for Pain Azithromycin (Zithromax) 500 Mg Tab 500 MG PO DAILY PRN for BEFORE DENTAL PROCEDURES, TAB Calcium Carbonate-Cholecalcife (Calcium 600 + D 600-200 mg-Unit) 1 Tab Tab 1 TABS PO BID Cholecalciferol (Vitamin D3) 2,000 Unit Cap 2000 UNIT PO BID, 3 Refills Clopidogrel (Plavix) 75 Mg Tab 75 MG PO DAILY, TAB Gabapentin (Neurontin) 100 Mg Cap 100 MG PO TID for 30 Days Insulin Aspart (Novolog Flexpen) 100 Units/Ml Inj 5 UNITS SQ TIDM inject 5 units with breakfast, lunch and dinner Insulin Degludec (Tresiba Flextouch) 100 Unit/Ml Inj 15 UNITS SQ QPM Metoprolol Succinate (Metoprolol Succinate ER) 100 Mg Tabcr 100 MG PO QPM Nitroglycerin (Nitrostat) 0.4 Mg Sub 0.4 MG UT UD PRN for Chest Pain Pantoprazole (Protonix) 40 Mg Tab 40 MG PO QAM Prednisone (Prednisone) 1 Mg Tab 5 MG PO DAILY for 30 Days Rosuvastatin Calcium (Crestor) 40 Mg Tab 40 MG PO DAILY, TAB Zolpidem Tartrate (Zolpidem Tartrate) 10 Mg Tab 10 MG PO HS Discontinued Medications: Doxycycline Hyclate (Doxycycline Hyclate) 100 Mg Tab 1 TAB PO BID for 10 Days Discharge Exam Review of Systems: Constitutional: No fever, No chills, No sweats, No weakness, No fatigue Eyes: No worsening of vision ENT: No hearing loss Respiratory: No cough, No shortness of breath, No hemoptysis Cardiovascular: + chest pain, No edema, No palpitations Abdomen: No pain, No nausea, No vomiting, No diarrhea, No constipation Musculoskeletal: + muscle pain, No joint pain, No swelling, No calf pain Genitourinary - Female: No dysuria, No hematuria Neurologic: No weakness Psychiatric: No depression symptoms, No anxiety Endocrine: No fatigue Hematologic / Lymphatic: No abnormal bleeding/bruising Integumentary: No rash, No itch, No new/changing skin lesions Physical Exam: General Appearance: no apparent distress Eyes: normal inspection, PERRL ENT: hearing grossly normal Neck: supple Respiratory/Chest: lungs clear, no respiratory distress, no accessory muscle use, + pertinent finding (ttp of L chest region ) Cardiovascular: regular rate, rhythm, + systolic murmur Abdomen / GI: normal bowel sounds, non tender, soft Extremities: no calf tenderness, no pedal edema Neurologic/Psychiatric: alert, normal mood/affect, oriented x 3 Skin: normal color, warm/dry, no rash Hospital Course Patient is a pleasant 82 y/o female, with PMHx of CAD s/p CABG, aortic valve repair w/ bioprosthetic valve, CVA, HLD, PAD, HTN, T2DM, LALA, PMR, vertigo, MSSA buttock abscess and GERD, who presented to the ED because of L-sided chest pain that started around 1999 last evening. L-sided chest pain, likely secondary to musculoskeletal pain- ACS r/o vs PMR vs GERD: - Admit to tele observation for cardiac monitoring- no acute events - Trend cardiac enzymes- peak trop at 0.488- cardiology thinks likely demand ischemia secondary to HTN/CAD - EKG QAM and PRN for chest pain - ECHO reviewed - Nitro PRN for chest pain - CXR and CTA of chest- unremarkable for acute findings - Add Carafate QID x7 days + Protonix daily for acid reflux - Consult cardiology, appreciate recommendations CAD s/p CABG, aortic valve repair w/ bioprosthetic valve, HTN- follows w/ Dr. Walters: - Continue Metoprolol 100 mg daily - Losartan 50 mg daily increased to 100 mg daily, Imdur 30 mg daily increased to 60 mg daily CVA, PAD, HLD: - Continue Crestor 40 mg daily, Plavix 75 mg daily - Following w/ [facility] vascular surgery for carotid/subclavian stenosis PMR- follows w/ Dr. Starr: Continue Gabapentin 100 mg TID, Prednisone 5 mg daily MSSA buttock abscess- follows w/ Dr. Benavides: - Refusing Doxycycline at this time- Dr. Benavides consulted, recommended IV Daptomycin while inpatient and he will follow-up outpt for additional antibiotics T2DM: - Continue Tresiba 15 u daily - BSG ACHS and ISS LALA: CPAP HS GERD: Protonix + Carafate DVT prophylaxis: Heparin SQ BID Code status: LEVEL V, DNR Dispo: Discharge to home Total Time Spent: Greater than 30 minutes This includes examination of the patient, discharge planning, medication reconciliation, and communication with other providers. Discharge Instructions Please refer to the electronic Patient Visit Report (Discharge Instructions) for additional information. Follow-Up Please follow-up with your PCP within 5-7 days Please follow-up with Dr. Walters within 2-3 weeks Follow-up with Dr. Benavides within 5-7 days Please follow-up/keep all of your subspecialty appointments Additional Copies To Davion Flores M.D. Reviewed: Pt Seen/Exam by Me History Physician Collection Administrator Supervision Note: I interviewed and examined the patient. Discussed with NEAL Tolentino and agree with findings and plan as documented in the note. Any exceptions or clarifications are listed here: Pt admitted this AM after having atypical CP in left side of chest with radiation to LUE that started last night, several hours after taking po doxycycline. SHe received IV Pepcid, Maalox, nitroglycerin, and Fentanyl in the ER. Troponin trended upward slightly into an abnormal range, but then decreased again once BPs were controlled. Pt reports she frequently has pain at the site of her previous sternotomy with some radiation to left side of chest that is tender, but this pain was different because it went to her left arm. Likely secondary to esophagitis or gastritis induced by doxycycline. Feeling much better on the day of discharge. Vitals reviewed NAD, AAOx3 RRR 2/6 LIBAN at RUSB, +TTP over left chest wall CTAB no wcr Abd +BS soft NT ND Ext no edema SKin: Right buttocks with 2 areas of circular lesions that are fluctuant, mild erythema and purplish in color, no TTP, 1.5cm in diameter Pt is an 82 yo female with a h/o CAD s/p CABG, AVR, h/o CVA after AVR, HTN, LALA , DMII, HLD, PAD, PMR, OA on chronic prednisone, vertigo, MSSA buttock abscess and GERD, here with atypical CP. Could very well be secondary to doxycycline-induced gastritis or esophagitis -troponin slightly elevated likely demand ischemia due to elevated BPs as per d/ w Cardio, ECGs essentially unchanged from previous -improved control of BP with increasing dose of losartan to 100mg daily (extra 50-mg given this afternoon), and increase Imdur to 60mg daily (added extra 30mg today) -continue carafate on dc for possible esophagitis and gastritis -Buttocks abscesses seem on their way to healing-could have some benefit to opening them up for drainage, but no longer erythematous or very tender as per patient-received 2 doses Daptomycin here and will f/u as outpt with Dr. Benavides Documented By: Stella Patricia
[2017-07-19 13:48] VITALS: BP 126/68; PULSE 79; TEMP 36.5; O2SAT 95
[2017-07-19] MEDS ORDERED: DAPTOmycin IV 300 MG in SODIUM CHLORIDE 0.9% 50ML 50 ML IV STA (14:08)
[2017-07-19] MEDS ORDERED: CRFUDL PO (14:12)
--- NOTE | 2017-07-19 14:17 | Discharge Instructions ---
Discharge Instructions Date of Service Jul 19, 2017. Admission Reason for Admission: Chest Pain Discharge Discharge Diagnosis / Problem: Musculoskeletal chest pain Discharge Goals Goal(s): Decrease discomfort, Improve function, Increase independence, Improve disease control, Learn about illness, Diagnostic testing, Therapeutic intervention, Prevent Disease Progression Activity Recommendations Activity Limitations: resume your previous activity . Instructions / Follow-Up Instructions / Follow-Up You were admitted to due to complaints of chest pain. An acute cardiac event was ruled out through cardiac monitoring, cardiac enzymes, and an echocardiogram. Additionally, your pain is reproducible with movement and touch; This likely represents a musculoskeletal issue. Continue Prednisone (which will help with inflammation), continue to apply heat as needed (apply 2-3 times daily for no longer than 20 minutes), continue topical cream as instructed by Dr. Starr. Medication changes: Losartan was INCREASED to 100 mg daily Imdur was INCREASED to 60 mg daily New Medication: Carafate 4 times daily until prescription is completed It is possible some of your chest discomfort can be due to acid reflux. This medication, in addition to Protonix, will help treat it. Buttock wounds: Stop Doxycycline You received IV antibiotics while inpatient. Please follow-up with Dr. Benavides as scheduled. At that time, he will arrange additional antibiotics as needed Resume all other regular home medications as prescribed FOLLOW-UPS: Please follow-up with your PCP within 5-7 days Please follow-up with Dr. Walters within 2-3 weeks Follow-up with Dr. Benavides within the next 5-7 days Please follow-up/keep all of your subspecialty appointments Current Hospital Diet Patient's current hospital diet: AHA Diet (Heart Healthy), Diabetes Type 2 Diet Discharge Diet Recommended Diet: AHA Diet (Heart Healthy), Diabetes Type 2 Diet Pending Studies Studies pending at discharge: no Laboratory Results Hemoglobin A1c Test 05/25/17 14:31 Range/Units Estimated Average Glucose 163 mg/dl Hemoglobin A1c 7.3 H 4.5-5.6 % Medical Emergencies . Who to Call and When: Medical Emergencies: If at any time you feel your situation is an emergency, please call 911 immediately. . Non-Emergent Contact Non-Emergency issues call your: Primary Care Provider, Mechanical Cad Drafter Call Non-Emergent contact if: your pain is not controlled, your pain is worsening, your pain is unusual for you, your pain is concerning you, wound has increased drainage, wound has increased redness, wound has increased pain, you have any medication questions . . "Provider Documentation" section prepared by Wendy Tolentino. . VTE Core Measure Inpt VTE Proph given/why not?: Unfractionated heparin SQ
== END 2017-07-19 15:33 | disposition home or self-care (01) ==
LOC: C.EDB 22:23 → C.2E 07-18 08:00 → ENRESERV 07-18 08:40
PROVIDERS: ADMIT Family Medicine; ATTEND Family Medicine
DX: R07.89 Other chest pain (principal); L02.31 Cutaneous abscess of buttock; I25.10 Atherosclerotic heart disease of native coronary artery without angina pectoris; B95.61 Methicillin susceptible Staphylococcus aureus infection as the cause of diseases classified elsewhere; M79.602 Pain in left arm; E11.9 Type 2 diabetes mellitus without complications; I73.9 Peripheral vascular disease, unspecified; K21.9 Gastro-esophageal reflux disease without esophagitis; E78.4 Other hyperlipidemia; N18.3 Chronic kidney disease, stage 3 (moderate); I12.9 Hypertensive chronic kidney disease with stage 1 through stage 4 chronic kidney disease, or unspecified chronic kidney disease; G47.33 Obstructive sleep apnea (adult) (pediatric); M06.9 Rheumatoid arthritis, unspecified; Z86.73 Personal history of transient ischemic attack (TIA), and cerebral infarction without residual deficits; Z85.038 Personal history of other malignant neoplasm of large intestine; Z79.02 Long term (current) use of antithrombotics/antiplatelets; Z79.899 Other long term (current) drug therapy; Z79.4 Long term (current) use of insulin; Z79.52 Long term (current) use of systemic steroids; Z95.1 Presence of aortocoronary bypass graft; Z95.2 Presence of prosthetic heart valve; Z88.8 Allergy status to other drugs, medicaments and biological substances; Z88.1 Allergy status to other antibiotic agents

== ENCOUNTER → 2017-07-31 | Outpatient (CLI) | payer OTHER ==
[~2017-07-31] MED LIST changes: -AZIT500T PO; -CZR50 PO; -DOXY100T PO; -IMDSR30 PO; -MIRT15TA2 PO
--- NOTE | 2017-07-31 14:51 | MAMMOGRAPHY REPORT ---
UNILATERAL LEFT DIGITAL DIAGNOSTIC MAMMOGRAM TOMOSYNTHESIS WITH CAD: 07/31/2017 CLINICAL HISTORY: 82-year-old woman with a history of prior left breast, presents for follow-up of pr obably benign calcifications in the upper inner quadrant of the left breast. TECHNIQUE: Left breast tomosynthesis in addition to standard 2D mammography was performed. Spot magn ification left CC and ML views were also obtained. Current study was also evaluated with a Computer Aided Detection (CAD) system. COMPARISON: Comparison is made to exams dated: 01/23/2017 mammogram, 01/12/2017 mammogram, 11/26/2015 ma mmogram, 11/26/2015 ultrasound, 08/26/2015 mammogram, and 08/19/2015 mammogram - [facility] nter. BREAST COMPOSITION: The tissue of the left breast is almost entirely fatty. FINDINGS: There are mild to moderate vascular calcifications in the left breast. There are grouped r ounded masses with lucent centers and associated reticular calcification in the medial anterior left breast on the cc view. 2 other discrete lobulated and oval lucent centered masses are identified in the upper inner anterior and middle one third of the left breast. The associated calcification has c oarsened and become more reticular in appearance comparing to this prior spot magnification views, co nfirming benign fat necrosis/oil cysts. No new suspicious mass, asymmetry, architectural distortion or cluster of suspicious microcalcifications is seen in the left breast. Recommend return to annual screening mammography schedule. IMPRESSION: ACR BI-RADS CATEGORY 2: BENIGN There are benign oil cysts with reticular and peripheral calcification in the upper inner quadrant of the left breast, corresponding with an area of prior trauma. Given the interval coarsening and reti cular appearance of the calcification these are benign. No further close follow-up is needed at this time. Return to annual mammogram screening schedule is recommended. The patient has been verbally notified of the results. Approximately 10% of breast cancers are not detected with mammography. A negative mammographic report should not delay biopsy if a clinically suggestive mass is present. Ginny Pinedo M.D. ay/:07/31/2017 10:45:06 Sorority Supervisor: Asya Jimenez RT(R)(M), [facility] letter sent: Normal 1/2 BI-RADS Code: ACR BI-RADS Category 2: Benign
== END | disposition home or self-care (01) ==
LOC: C.MAMM 10:03
PROVIDERS: ATTEND Internal Medicine Geriatric Medicine
DX: N60.02 Solitary cyst of left breast (principal); R92.1 Mammographic calcification found on diagnostic imaging of breast

== ENCOUNTER → 2017-08-07 | Outpatient (CLI) | payer OTHER | END | disposition home or self-care (01) | LOC: C.LAB1850 09:17 | PROVIDERS: ATTEND Nurse Practitioner Family | DX: E11.9 Type 2 diabetes mellitus without complications (principal) ==

== ENCOUNTER → 2017-08-08 | Outpatient (CLI) | payer OTHER ==
--- NOTE | 2017-08-09 05:31 | PAP/PSG TECHNICIAN REPORT ---
[facility] Mobility Engineer Polysomnogram Report Study name: None Report date: 08/09/2017 Study date: 08/08/2017 Referring Physician: Dr. Abdon Simons DO Name: JACKELYN JHAVERI Interpreting Physician: Abdon Simons D.O. Date of : 1935 Mobility Engineer: MONICA Queen. Sex: Female Age: 82 StudyType: PSG PAP Weight: 167 lbs Height: 82 years, Height 5' 6.5" Neck Circum:15IN. BMI: 26.55 Medications: Isosorbide Mononitrate ER 30mg, Nitrostat 0.4mg, Gabapentin 100mg, Cholestyramine Light 4gm, Pantoprazole Sodium 40mg, Losartan Potassium 50mg, Metoprolol 100mg, Zolpidem 5mg, Reclast 5mg/100ml, Diclofenac gel, Prednisone 4mg, Azythromycin 500mg, Clopidogrel Bisulfate 75mg, Novolog Flex Pen 100unit/ml, Rosuvastatin Calcium 40mg, Famotidine 20mg Patient History Study started on room air with 4cwp cpap in room #6. 82 yr old female here tonight for a new titration study. She had a HST that had an MARY of 17.3 on 06/19/17. Her ESS=1/21.Neck circ=15inches. Parameters Monitored NPSG: E1-M2, E2-M1, Fp1-M2, Fp2-M1, F3-M2, F4-M2, F4-M1, C3-M2, C4-M2, C4-M1, O1-M2, O2-M2, O2-M1, T3-M2, T4-M1, P3-M2, P4-M1, CHIN1, CHIN2, HR, EKG, Legs, PFLOW, SNOR, FLOW, CFLOW, Tidal Volume, THOR, ABDO, SpO2, PLTH, CPRESS, ETCO2 Wave, ETCO2, pH Sleep Architecture Sleep Stages Time at Lights Off 9:14:21 PM STAGES Time (min.) TST (%) Time at Lights On 5:24:51 AM Wake 137.5 -- Total Recording Time (TRT) 490.50 min. N1 15.0 4 Total Sleep Period (TSP) 469.0 min. N2 165.5 47 Total Sleep Time (TST) 353.0min. N3 112.0 32 Awake Time 137.5 min. REM 60.5 17 Wake after Sleep Onset 116.0 min. Sleep Efficiency (SE) 72 % Sleep Onset Latency (BIGG) 21.5 min. Number of Stage 1 Shifts None Awakenings 27 Stage Changes 117 Number of REM periods 3 REM 60.5 17 REM Latency 90.5 min. NREM 292.5 83 Body Position Analysis Supine Right Left Side Prone Vertical Total Sleep Time (min.) 486.2 0.0 0.0 0.00 0.0 0.0 Total Sleep Time (%) 100% 0% 0% 0 0% N/A% Total Sleep Time REM (min.) 60.5 0.0 0.0 None 0.0 0.0 Total Sleep Time NREM (min.) 292.5 0.0 0.0 None 0.0 0.0 Intermittent Wake (min.) 133.2 4.3 0.0 None 0.0 0.0 Total Sleep Period (%) 99% None None None None None Arousals Myoclonus (PLM) * Events Count Index Events Count Index Spontaneous 22 4 Events Awake (PLMW) 95 41.5 Respiratory 11 2.2 Events Asleep w/ Arousal (PLMA) 20 3.4 PLM 19 3 Events Asleep w/o Arousal (PLMS) 56 9.5 Snoring 1 0 Total Asleep 76 12.9 Total 53 9 Total 171 21 Respiratory Analysis * CA OA MA CH H RERA Total Count 1 5 0 0 22 1 28 Index 0.2 0.8 0.0 0 3.7 0 4.9 Mean Duration 11.7 18.4 0.0 0.00 23.0 24.2 21.9 Longest Duration 11.7 23.8 0.0 0.00 0.0 24.2 44.2 Respiratory Event Summary Total Supine ~Supine Right Left Prone REM NREM Apneas Count 6 6 N/A N/A N/A N/A 1 5 Index 1.0 1 N/A N/A N/A N/A 1 1 Hypopneas (4% Desat) Count 22 22 N/A N/A N/A N/A 3 19 Index 3.7 3.7 N/A N/A N/A N/A 3.0 3.9 Apneas & All Hypopneas Count 28 28 N/A N/A N/A N/A 4 24 Index 4.8 5 N/A N/A N/A N/A 4.0 4.9 Respiratory Events (Dial Polisher+All Hyp+RERA) Count 28 29 N/A N/A N/A N/A 4 24 Index 4.9 5 N/A N/A N/A N/A 4.0 5.1 Respiratory Related Arousal Count 11 29 N/A N/A N/A N/A 0 13 Index 2.2 2 N/A N/A N/A N/A 0 3 Snoring Analysis Supine Right Left Prone REM NREM Total Snore duration 1.5 min Snores count 24 N/A N/A N/A 0 24 24 Snore mean duration 3.8 Sec Snores index 4 N/A N/A N/A 0.0 4.9 4.1 TST with snoring (%) 0.4% Desaturation Event Summary: Minimum %SpO2 Event Count Mean/Min/Max Duration(sec.) Desaturation Index % Time In Bed > 90 70 29.5 / 6.8 / 59.3 13.2 66.7 86 - 90 14 26.5 / 6.8 / 56.5 5.3 33.0 81 - 85 0 N/A 0.0 0.2 76 - 80 0 N/A 0.0 0.1 71 - 75 0 N/A 0.0 0.0 66 - 70 0 N/A 0.0 0.0 61 - 65 0 N/A 0.0 0.0 56 - 60 0 N/A 0.0 0.0 51 - 55 0 N/A 0.0 0.0 < 50 0 N/A 0.0 0.0 Total REM NREM Awake <50% 0.0 min. 0.0 min. 0.0 min. 0.0 min. 51 - 60% 0.0 min. 0.0 min. 0.0 min. 0.0 min. 61 - 70% 0.0 min. 0.0 min. 0.0 min. 0.0 min. 71 - 80% 0.6 min. 0.0 min. 0.0 min. 0.6 min. 81 - 90% 158.0 min. 26.6 min. 112.5 min. 19.0 min. 91 - 100% 317.5 min. 34.0 min. 179.5 min. 104.0 min. Average 91 91 91 92 Minimum SpO2 76 86 84 76 Desaturation Event Index 9.2 5.0 9.6 10.5 # Desat. Events below 89% 24 5 12 7 Time(%) with Saturation below 89% 1.9 0.6 0.9 0.4 Time(min.) with Saturation below 89% 9.2 3.0 4.1 2.1 Time (mins) REM (mins) NREM (mins) % of TST SpO2 Below 90% 50 5 N45 11.9 SpO2 Below 88% 9 0 0 1 Heart Rate Analysis Min (bpm) Max (bpm) Average (bpm) Awake 35 127 68 NREM 55 75 63 REM 59 75 66 Overall 55 75 64 Supplemental O2 Values Minimum O2 level: None Value Start Time End Time Mobility Engineer Comments Mr. Jhaveri slept in the right and supine positions. Cardiac arrhythmia and some leg movements were noted, please see print outs. No bruxism noted. CPAP was initiated at +4 CMH2O and up-titrated to an optimal level of +7 CMH2O, which nearly eliminated all respiratory events and snoring. A small Simplus full face mask by Ludy was used during titration. She awoke to use the restroom 1 time during the night. She stated that she slept about the same as usual. The final report will be interpreted and signed by a sleep physician. The completed physician report will then be placed in the patient medical record. Therapy Event: Therapy (cm H20) 4 5 6 7 Total Time at Pressure (min.) 125.2 123.5 19.1 222.6 TST at Pressure (min.) 91.2 103.5 15.1 143.1 # Periods 1 1 1 1 Sleep Onset (min.) 21.5 0.0 0.0 0.0 REM Onset (min.) 112.0 0.0 N/A 13.1 Sleep Efficiency % 72 83 79 64 Wakefulness (%) 27.1 16.2 20.9 35.7 Wakefulness (min.) 34.0 20.0 4.0 79.5 NREM 1 (%) 2.4 3.9 3.9 2.9 NREM 1 (min.) 3.0 4.8 0.7 6.5 NREM 2 (%) 18.8 36.8 75.2 36.9 NREM 2 (min.) 23.5 45.5 14.4 82.1 NREM 3 (%) 41.1 27.1 0.0 12.1 NREM 3 (min.) 51.5 33.5 0.0 27.0 REM (%) 10.6 16.0 0.0 12.4 REM (min.) 13.2 19.8 0.0 27.5 # Arousals 13 18 6 16 Arousal Index 8.5 10.4 23.8 6.7 # Snore 3 13 4 4 Snore Index 2.0 7.5 15.9 1.7 AHI 3.3 7.0 15.9 2.9 AHI Supine 3.3 7.0 15.9 2.9 AHI Non-Supine N/A N/A N/A N/A NREM AHI 3.1 7.2 15.9 3.1 REM AHI 4.5 6.1 N/A 2.2 RDI 3.3 7.0 19.9 2.9 # Obstructive 1 3 0 1 # Central Ap 0 0 0 1 # Mixed 0 0 0 0 # Hypopneas 4 9 4 5 RERAS 0 0 1 0 Total Respiratory Events 5 12 5 7 Time Below SpO2 89.00% (min.) 3.1 3.7 0.1 0.2 Mean NREM SpO2 (%) 90 90 91 92 Mean REM SpO2 (%) 89 90 N/A 91 Mean Sleep SpO2 (%) 90 90 91 92 Min NREM SpO2 (%) 87 84 88 89 Min REM SpO2 (%) 86 86 N/A 87 Position Supine (min.) 91.2 103.5 15.1 143.1 Position Non-supine (min.) 0.0 0.0 0.0 0.0 LM Index Sleep 5.9 25.5 31.8 6.3 LM Index NREM 6.9 31.5 31.8 5.2 LM Index REM 0.0 0.0 N/A 10.9 Mean Heart Rate (bpm) 65 63 60 63 Min Heart Rate (bpm) 55 55 55 55
--- NOTE | 2017-08-14 21:04 | Sleep Study ---
Sleep Study Report Date of Service: 08/08/2017 Sleep Study Report CLINICAL DATA: The patient is an 82-year-old female with a history of snoring. She had a home sleep study done 06/19/2017 that showed moderate sleep apnea with an MARY of 17.3. [facility] study. She has a BMI of 26.55. SLEEP ARCHITECTURE: The sleep period time was 469 minutes. The total sleep time was 353 minutes. The sleep efficiency was 72 percent. The sleep latency was top normal at 21.5 minutes. Wake after sleep onset was elevated at 116 minutes. The REM latency was 90.5 minutes. Sleep consisted of stage N1 4 percent, stage N2 47 percent, stage N3 32 percent, stage REM 17 percent. AROUSAL DATA: The patient had a total of 53 arousals including 22 spontaneous arousals, 11 respiratory arousals, 19 PLM arousals, and 1 snoring arousal. The arousal index was 9. PLM DATA: The patient had a total of 76 periodic limb movements of sleep for a PLM index of 12.9. There were 20 arousals associated with limb movements for a PLM arousal index of 3.4. EKG: The underlying cardiac rhythm was normal sinus. The minimum heart rate was 55 beats per minute and the maximum was 75 beats per minute. The average heart rate was 64 beats per minute. The patient had a moderate amount of PACs and PVCs. RESPIRATORY DATA: The patient's respiratory events were treated with nasal CPAP. There were a total of 28 respiratory events including 1 central apnea, 5 obstructive apneas, and 22 hypopneas. The longest apnea was 23.8 seconds. The mean duration of the hypopneas was 23 seconds. The apnea-hypopnea index was 4.8 events per hour. Hypopneas were scored according to the 4 percent desaturation rule. OXIMETRY DATA: The average saturation for the night was 91 percent. The minimum saturation was 76 percent. There was a total of 9.2 minutes with saturations less than 89 percent. It is believed that the minimum saturation of 76 percent was likely artifactual. The true minimum saturation appears to be 80 percent. This was very transient. CLIENT SERVICE COORDINATOR COMMENTS: The patient slept on the right and supine positions. Cardiac arrhythmia and some leg movements were noted. No bruxism noted. CPAP was initiated at 4 centimeters and up titrated to an optimal level of 7 centimeters which nearly eliminated all respiratory events and snoring. A small Simplus fullface mask by Ludy was used. She awakened to use the restroom 1 time during the night. IMPRESSIONS: 1. Obstructive sleep apnea 2. Cardiac arrhythmia-PACs and PVCs COMMENTS: The patient did reasonably well with nasal CPAP. She had been very anxious. Her sleep efficiency was modestly reduced. She did have a good amount of stage N3 and REM sleep. The oxygen desaturations were transient. RECOMMENDATIONS: 1. It is advised that the patient be started on nasal CPAP at 7 centimeters. 2. It is suggested that she be ordered a Simplus fullface mask by Ludy size small. 3. If possible the patient should avoid sleeping in the supine position where there is typically less apnea. During this study she spent almost the entire night supine. 4. The patient should be seen between day 31 day 90 after starting CPAP. Copies To 1: Abdon Simons DO; Davion Flores M.D.
== END | disposition home or self-care (01) ==
LOC: C.NEUR 20:00
PROVIDERS: ATTEND Internal Medicine Pulmonary Disease
DX: G47.33 Obstructive sleep apnea (adult) (pediatric) (principal); I49.1 Atrial premature depolarization; I49.3 Ventricular premature depolarization

== ENCOUNTER → 2017-08-28 | Outpatient (CLI) | payer OTHER ==
[2017-08-28 15:01] LABS: ALBUMIN 3.8 gm/dl (3.4-5.0); BLOOD UREA NITROGEN 19 mg/dl (7-18); CALCIUM 9.7 mg/dl (8.5-10.1); CARBON DIOXIDE 26 mmol/L (21-32); CREATININE 1.08 mg/dl (0.60-1.20); GLUCOSE 136 mg/dl (70-99); PHOSPHORUS 3.2 mg/dl (2.5-4.9); SODIUM 136 mmol/L (136-145)
== END | disposition home or self-care (01) ==
LOC: C.LAB1850 11:25
PROVIDERS: ATTEND Internal Medicine Nephrology
DX: M35.3 Polymyalgia rheumatica (principal); Z79.52 Long term (current) use of systemic steroids; N18.3 Chronic kidney disease, stage 3 (moderate)

== ENCOUNTER 2017-09-20 04:34 | Observation (INO) | payer OTHER ==
[~2017-09-20] VITALS: Ht 167.6 cm; Wt 75.7 kg
[2017-09-20] MEDS ORDERED: LABETALOL HCL IV 5 MG/ML 20ML IV STA ×3 (04:45→06:07)
[2017-09-20] MEDS ORDERED: ASPIRIN 324 MG CHEW PO STA (04:45)
--- NOTE | 2017-09-20 04:50 | EMERGENCY ROOM VISIT NOTE ---
History First contact with patient: 04:40 Chief Complaint: CHEST PAIN Stated Complaint: CHEST PAIN,PAIN DOWN LEFT ARM AND IN NECK History of Present Illness The patient is a 82 year old female who presents to the Emergency Room for evaluation of chest pain. Dull/aching chest pain started this evening and awoke her from sleep. Left sided and radiates to left neck and shoulder. Associated with shortness of breath. Nothing made worse, slntg made better. Took SLNTG with resolution of pain. Associated anxiety. States similar to previous IA. Recent Hypertensive crisis and admission with chest pain 2 months ago. Notes she is feeling much better now. Denies fevers, chills, syncope, headache, neck pain, vomiting, nausea, abdominal pain, back pain, rashes, leg swelling, nor other symptoms. History of CABG, valve repair, stroke, htn, dmii. Review of Systems See HPI for pertinent positives & negatives. A total of 10 systems reviewed and were otherwise negative. Past Medical/Surgical History Medical Problems: (1) CAD (coronary artery disease) (2) Carcinoma of colon (3) Colectomy (4) Coronary artery disease involving [place] coronary artery (5) Diabetes (6) Dizziness (7) Familial combined hyperlipidemia (8) GERD (gastroesophageal reflux disease) (9) Peptic ulcer (10) Rheumatoid arthritis (11) Stable angina (12) Stroke (13) Vertigo Surgical Problems: (1) History of cholecystectomy (2) History of colectomy (3) Removal of pin, plate, lulu, or screw (4) S/P CABG x 3 Family History Cancer Diabetes mellitus FHx: aneurysm Heart disease Hypertension Social History Smoking Status: Never Smoker Alcohol Use: none Drug Use: none Marital Status: Housing Status: lives with significant other Occupation Status: retired Current/Historical Medications Scheduled Aspirin (Aspirin Ec), 81 MG PO DAILY Calcium Carbonate-Cholecalcife (Calcium 600 + D 600-200 mg-Unit), 1 TABS PO BID Cholecalciferol (Vitamin D3), 1,000 UNIT PO BID Clopidogrel (Plavix), 75 MG PO DAILY Ezetimibe (Zetia), 10 MG PO DAILY Gabapentin (Neurontin), 100 MG PO TIDM Insulin Aspart (Novolog Flexpen), 14 UNITS SQ TIDM Insulin Detemir (Levemir), 12 SQ DAILY Losartan Potassium (Cozaar), 100 MG PO DAILY Metoprolol Succinate (Metoprolol Succinate ER), 100 MG PO QPM Omeprazole (Prilosec), 40 MG PO BID Pantoprazole (Protonix), 40 MG PO QAM Prednisone (Prednisone), 5 MG PO DAILY Rosuvastatin Calcium (Crestor), 40 MG PO DAILY Zoledronic Acid (Reclast), 1 DOSE IV YEARLY Scheduled PRN Acetaminophen (Tylenol Extra Strength), 1,000 MG PO TID PRN for Pain Nitroglycerin (Nitrostat), 0.4 MG UT UD PRN for Chest Pain Physical Exam Vital Signs Date Time Temp Pulse Resp B/P (MAP) Pulse Ox O2 Delivery O2 Flow Rate FiO2 09/20/17 05:31 72 16 180/88 96 Room Air 09/20/17 04:56 Room Air 09/20/17 04:46 74 09/20/17 04:42 96 Room Air 09/20/17 04:36 36.6 74 18 178/76 97 Room Air Physical Exam GENERAL: Patient is very anxious appearing and mild distress. EYES: No scleral icterus, unremarkable pupils. ENT: Mucous membranes moist, no nasal congestion. NECK: No masses appreciated, no meningismus, trachea is midline. RESPIRATORY: No dyspnea. Clear to auscultation and equal bilaterally. No wheeze , no rhonchi. CARDIOVASCULAR: Regular rate and rhythm. No murmurs, rubs, gallops appreciated. GASTROINTESTINAL: Abdomen soft, nontender, no peritonitis. Bowel sounds positive. No masses appreciated. BACK: No midline tenderness, no CVA tenderness EXTREMITIES: Normal motion all extremities, no cyanosis, no edema. NEUROLOGIC: Alert and oriented, no acute motor or sensory deficits, no focal weakness, cranial nerves grossly intact. SKIN: No rash, no jaundice, no diaphoresis. Medical Decision & Procedures ER Provider Diagnostic Interpretation: X ray results are stated below per my interpretation: Chest: 1 view: No infiltrate, no effusion, normal cardiac border. Similar to previous CXR Jul 2017 Laboratory Results 09/20/17 04:49 Red Blood Count 4.28, Mean Corpuscular Volume 92.8, Mean Corpuscular Hemoglobin 29.7, Mean Corpuscular Hemoglobin Concent 32.0, Mean Platelet Volume 9.7 09/20/17 04:49 Test 09/20/17 04:49 White Blood Count 6.17 K/uL (4.8-10.8) Red Blood Count 4.28 M/uL (4.2-5.4) Hemoglobin 12.7 g/dL (12.0-16.0) Hematocrit 39.7 % (37-47) Mean Corpuscular Volume 92.8 fL (80-100) Mean Corpuscular Hemoglobin 29.7 pg (25-34) Mean Corpuscular Hemoglobin Concent 32.0 g/dl (32-36) Platelet Count 153 K/uL (130-400) Mean Platelet Volume 9.7 fL (7.4-10.4) RDW Standard Deviation 47.9 fL (36.4-46.3) RDW Coefficient of Variation 14.3 % (11.5-14.5) Neutrophils % (Manual) 44.1 % Lymphocytes % (Manual) 24.8 % Monocytes % (Manual) 8.0 % Eosinophils % (Manual) 1.8 % Basophils % (Manual) 0.9 % Neutrophils # (Manual) 2.72 K/uL (1.4-6.5) Total Absolute Neutrophils 2.72 K/uL (1.4-6.5) Lymphocytes # (Manual) 1.53 K/uL (1.2-3.4) Total Absolute Lymphocytes 2.79 K/uL (1.2-3.4) Monocytes # (Manual) 0.49 K/uL (0.11-0.59) Eosinophils # (Manual) 0.11 K/uL (0-0.5) Basophils # (Manual) 0.06 K/uL (0-0.2) Percent Large Granular Lymphocytes 20.4 % Absolute Large Granular Lymphocytes 1.26 K/uL Red Blood Cell Morphology Unremarkable Anion Gap 5.0 mmol/L (3-11) Est Creatinine Clear Calc Drug Dose 38.2 ml/min Estimated GFR () 49.1 Estimated GFR (Non- 42.4 BUN/Creatinine Ratio 16.4 (10-20) Calcium Level 9.4 mg/dl (8.5-10.1) Troponin I < 0.015 ng/ml (0-0.045) Medications Administered Medications (Trade) Dose Ordered Sig/Sincere Route Start Time Stop Time Status Last Admin Dose Admin Labetalol HCl (Normodyne IV) 10 mg NOW STAT IV 09/20/17 04:45 4/11/18 04:46 DC 09/20/17 04:56 10 MG Aspirin (Aspirin Chew) 324 mg NOW STAT PO 09/20/17 04:45 09/20/17 04:46 DC 09/20/17 04:56 324 MG Labetalol HCl (Normodyne IV) 10 mg NOW STAT IV 09/20/17 05:30 09/20/17 05:31 DC 09/20/17 05:37 10 MG Nitroglycerin (Nitrostat Tab) 0.4 mg NOW STAT SL 09/20/17 05:32 09/20/17 05:33 DC 09/20/17 05:35 0.4 MG ECG Per My Interpretation Indication: chest pain Rate (beats per minute): 74 Rhythm: normal sinus (with lateral and inferior ST depressions as well as mild V1/AVR ST elevetion though similar to previous.) Findings: PAC Comparison ECG Date: Simlar to EKG with NSTEMI Jul 2017 Change: Repeat EKG at 5:31am: My interpretation: NSR 71 with similar inferior/lateral ST depressions and < 1mm elevation st V1/aVR. This is still similar to EKG from 07/2017. QTC 445 Medical Decision Differential: Cardiac Ischemia (STEMI, NSTEMI, Unstable Angina, etc), Aortic Dissection, Arrhythmia, Pulmonary Embolism, Pneumonia, Pneumothorax, MSK, Infectious, Pericarditis/Myocarditis, Esophageal Rupture, Gastrointestinal, amongst other pathologies entertained. 82 yr old female arrives for evaluation of left sided chest pain radiating to neck and arm. She is known to me from previous visits and is at baseline a bit anxious. Symptoms more consistent with her previous cardiac issues and she is noted to have EKG similar to that of EKG from 2 months ago for which she had NSTEMI. She had CABG 2 years ago with valve repair but is also on chronic steroids. Recent echo looked OK. She has not had recent cath/intervention. She has no pain on arrival thus just given asa and labatalol, though about 1 hour in to visit developed return of left sided chest pressure and repeat EKG done though no acute change. Initial labs with negative trop along with other labs unremarkable. Symptoms not consistent with PE. With return of CP here, clearly resolves with SLTNG felt placing on Nitro past reasonable. Did require a second dose IV labetalol to get BP better controlled. She was pain free after this. I do not feel that I can safely cardiac rule out here in ED. Reviewed with her Urban Design Consultant Dr Walters who agrees with seeing patient in hospitalist and hospitalist consulted for management further. Head Trauma GCS Score: 15 Medication Reconcilliation Current Medication List: was personally reviewed by me Blood Pressure Screening Patient's blood pressure: Elevated blood pressure Will be monitored by hospitalist. Impression Primary Impression: Left sided chest pain Additional Impression: Hypertensive emergency Departure Information Referrals Davion Flores M.D. (PCP) Patient Instructions My [facility] Health Problem Qualifiers
[2017-09-20 05:02] LABS: HEMATOCRIT 39.7 % (37-47); HEMOGLOBIN 12.7 g/dL (12.0-16.0); MEAN CELL VOLUME 92.8 fL (80-100); MEAN CORPUSCULAR HEMOGLOBIN 29.7 pg (25-34); MEAN PLATELET VOLUME 9.7 fL (7.4-10.4); PLATELET COUNT 153 K/uL (130-400); RED CELL DISTRIBUTION WIDTH CV 14.3 % (11.5-14.5); RED CELL DISTRIBUTION WIDTH SD 47.9 fL (36.4-46.3); WHITE BLOOD COUNT 6.17 K/uL (4.8-10.8)
[2017-09-20] MEDS ORDERED: ASPI81TA28 PO (05:09)
[2017-09-20] MEDS ORDERED: GABA-112 PO (05:11)
[2017-09-20] MEDS ORDERED: LOSA1TAB38 PO (05:14)
[2017-09-20] MEDS ORDERED: PRED-301 PO (05:15)
[2017-09-20] MEDS ORDERED: PRLSR20 PO (05:16)
[2017-09-20] MEDS ORDERED: EZET10TA63 PO (05:17)
[2017-09-20] MEDS ORDERED: LVMI SQ (05:20)
[2017-09-20 05:22] LABS: BLOOD UREA NITROGEN 20 mg/dl (7-18); CALCIUM 9.4 mg/dl (8.5-10.1); CARBON DIOXIDE 26 mmol/L (21-32); GLUCOSE 108 mg/dl (70-99); POTASSIUM 3.4 mmol/L (3.5-5.1); SODIUM 139 mmol/L (136-145)
[2017-09-20] MEDS ORDERED: ZOLE5INJ IV (05:22)
[2017-09-20] MEDS ORDERED: NITROGLYCERIN 0.4 MG SL PER TAB CHARGE SL STA (05:32)
[2017-09-20] MEDS ORDERED: NITROGLYCERIN 0.4 MG SL PER TAB CHARGE ONE (05:33)
[2017-09-20] MEDS ORDERED: NITROGLYCERIN 2% OINTMENT 30GM TUBE EXT ONE (06:15)
--- NOTE | 2017-09-20 07:22 | DIAGNOSTIC IMAGING REPORT ---
SINGLE VIEW CHEST CLINICAL HISTORY: Atypical chest pain. FINDINGS: An AP, portable, upright chest radiograph is compared to chest x-ray and chest CT dated 07/18/2017. The examination is degraded by portable technique and patient rotation. The patient is status post midline sternotomy and aortic valve surgery. The heart is enlarged and there is atherosclerotic calcification of the thoracic aorta. The pulmonary vasculature is noncongested. Chronic interstitial thickening is similar to previous. No airspace consolidation or pleural effusion is identified. No pneumothorax is seen. The skeletal structures are osteopenic. The bony thorax is grossly intact. IMPRESSION: Cardiomegaly with no acute cardiopulmonary abnormality. Electronically signed by: Efren Taylor M.D. 09/20/2017 7:21 AM Dictated Date/Time: 09/20/2017 7:20 AM
--- NOTE | 2017-09-20 07:31 | History and Physical ---
History & Physical Date & Time of Service: Sep 20, 2017 at 07:27 Chief Complaint: Chest Pain,Pain Down Left Arm And In Neck Primary Care Physician: Davion Flores M.D. History of Present Illness Patient reports today that around 2-3 am patient awoke with midsternum chest pain. Patient states that the pain was pressure like in nature, moderate in intensity , radiated to the left arm, intermittent, lasted for about 30 minutes, was relieved by nitro. Patient woke up about 1 hour after the first episode of pain. Pain reoccurred and was constant. Patient reports that her BP was elevated was 190/115 as per , but they are not 100% sure. Patient decided to come to the hospial due to this episode. Patient denies shortness of breath or oter associated symptoms. Patient reports now that she has pain to palpation on her chest now that she is in the ER. Denies fevers, chills, syncope, headache, neck pain, vomiting, nausea, abdominal pain, back pain, rashes, leg swelling, nor other symptoms. History of CABG, valve repair, stroke, htn, dmii. Past Medical/Surgical History CAD s/p CABG aortic valve repair w/ bioprosthetic valve mitral regurgitation CVA HLD PAD HTN T2DM LALA PMR vertigo MSSA buttock abscess GERD colon cancer s/p colectomy Surgical Problems: (1) History of cholecystectomy Status: Resolved (2) History of colectomy Status: Resolved (3) Removal of pin, plate, lulu, or screw Status: Resolved Family History Cancer Diabetes mellitus FHx: aneurysm Heart disease Hypertension Social History Smoking Status: Never Smoker Drug Use: none Marital Status: Housing status: lives with family Occupational Status: retired Immunizations History of Influenza Vaccine: No Influenza Vaccine Date: Mar 17, 2011 History of Tetanus Vaccine?: unknown History of Pneumococcal: No History of Hepatitis B Vaccine: No Allergies Coded Allergies: Cefadroxil (Verified Allergy, Intermediate, UNKNOWN, 09/20/17) Clindamycin (Verified Allergy, Intermediate, UNKNOWN, 09/20/17) Levofloxacin (Verified Allergy, Intermediate, UNKNOWN, 09/20/17) Metronidazole (Verified Allergy, Intermediate, UNKNOWN, 09/20/17) Amoxicillin (Verified Adverse Reaction, Mild, diarrhea, 09/20/17) Clavulanic Acid (Verified Adverse Reaction, Mild, diarrhea, 09/20/17) Metformin (Verified Adverse Reaction, Mild, diarreha, 07/18/17) Sitagliptin (Verified Adverse Reaction, Mild, diarreha, 07/18/17) Home Medications Scheduled Aspirin (Aspirin Ec), 81 MG PO DAILY Calcium Carbonate-Cholecalcife (Calcium 600 + D 600-200 mg-Unit), 1 TABS PO BID Cholecalciferol (Vitamin D3), 1,000 UNIT PO BID Clopidogrel (Plavix), 75 MG PO DAILY Ezetimibe (Zetia), 10 MG PO DAILY Gabapentin (Neurontin), 100 MG PO TIDM Insulin Aspart (Novolog Flexpen), 14 UNITS SQ TIDM Insulin Detemir (Levemir), 12 SQ DAILY Losartan Potassium (Cozaar), 100 MG PO DAILY Metoprolol Succinate (Metoprolol Succinate ER), 100 MG PO QPM Omeprazole (Prilosec), 40 MG PO BID Pantoprazole (Protonix), 40 MG PO QAM Prednisone (Prednisone), 5 MG PO DAILY Rosuvastatin Calcium (Crestor), 40 MG PO DAILY Zoledronic Acid (Reclast), 1 DOSE IV YEARLY Scheduled PRN Acetaminophen (Tylenol Extra Strength), 1,000 MG PO TID PRN for Pain Nitroglycerin (Nitrostat), 0.4 MG UT UD PRN for Chest Pain Review of Systems Constitutional: No fever, No chills Eyes: No worsening of vision ENT: + hearing loss (chronic) Respiratory: No cough Cardiovascular: + chest pain, No edema Abdomen: No pain, No nausea Musculoskeletal: + muscle pain Neurologic: No memory loss Psychiatric: + anxiety, No depression symptoms Endocrine: No fatigue Hematologic / Lymphatic: No abnormal bleeding/bruising Integumentary: No rash Allergic / Immunologic: No environmental allergies Physical Exam Vital Signs Date Time Temp Pulse Resp B/P (MAP) Pulse Ox O2 Delivery O2 Flow Rate FiO2 09/20/17 06:20 36.6 70 15 139/63 96 Room Air 09/20/17 05:31 72 16 180/88 96 Room Air 09/20/17 04:56 Room Air 09/20/17 04:46 74 09/20/17 04:42 96 Room Air 09/20/17 04:36 36.6 74 18 178/76 97 Room Air Neurologic/Psych: alert, oriented x 3 Skin: normal color, warm/dry, + pertinent finding (There are 2 purplish areas on her right buttock with firm nodule underlying, similar lesion on her left buttock. All areas are tender locally. No purulent drainage. No other rash or skin lesions noted. No adenopathy in neck, axilla, or groin. No spinal tenderness. No joint swelling or erythema.) Lymphatic: no adenopathy Diagnostics Laboratory Results Results Past 24 Hours Test 09/20/17 04:49 Range/Units White Blood Count 6.17 4.8-10.8 K/uL Red Blood Count 4.28 4.2-5.4 M/uL Hemoglobin 12.7 12.0-16.0 g/dL Hematocrit 39.7 37-47 % Mean Corpuscular Volume 92.8 80-100 fL Mean Corpuscular Hemoglobin 29.7 25-34 pg Mean Corpuscular Hemoglobin Concent 32.0 32-36 g/dl Platelet Count 153 130-400 K/uL Mean Platelet Volume 9.7 7.4-10.4 fL RDW Standard Deviation 47.9 36.4-46.3 fL RDW Coefficient of Variation 14.3 11.5-14.5 % Neutrophils % (Manual) 44.1 % Lymphocytes % (Manual) 24.8 % Monocytes % (Manual) 8.0 % Eosinophils % (Manual) 1.8 % Basophils % (Manual) 0.9 % Neutrophils # (Manual) 2.72 1.4-6.5 K/uL Total Absolute Neutrophils 2.72 1.4-6.5 K/uL Lymphocytes # (Manual) 1.53 1.2-3.4 K/uL Total Absolute Lymphocytes 2.79 1.2-3.4 K/uL Monocytes # (Manual) 0.49 0.11-0.59 K/uL Eosinophils # (Manual) 0.11 0-0.5 K/uL Basophils # (Manual) 0.06 0-0.2 K/uL Percent Large Granular Lymphocytes 20.4 % Absolute Large Granular Lymphocytes 1.26 K/uL Red Blood Cell Morphology Unremarkable Sodium Level 139 136-145 mmol/L Potassium Level 3.4 3.5-5.1 mmol/L Chloride Level 108 98-107 mmol/L Carbon Dioxide Level 26 21-32 mmol/L Anion Gap 5.0 3-11 mmol/L Blood Urea Nitrogen 20 7-18 mg/dl Creatinine 1.20 0.60-1.20 mg/dl Est Creatinine Clear Calc Drug Dose 38.2 ml/min Estimated GFR () 49.1 Estimated GFR (Non- 42.4 BUN/Creatinine Ratio 16.4 10-20 Random Glucose 108 70-99 mg/dl Calcium Level 9.4 8.5-10.1 mg/dl Troponin I < 0.015 0-0.045 ng/ml CXR normal Normal EKG Impression Assessment and Plan Patient is a pleasant 82 y/o female, with PMHx of CAD s/p CABG, aortic valve repair w/ bioprosthetic valve, CVA, HLD, PAD, HTN, T2DM, LALA, PMR, vertigo, MSSA buttock abscess and GERD, who presented to the ED because of L-sided chest pain that started around 1999 last evening. L-sided chest pain, ACS r/o vs PMR vs GERD: - Admit to tele observation for cardiac monitoring - Trend cardiac enzymes - EKG QAM and PRN for chest pain - Nitro PRN for chest pain - CXR unremarkable for acute findings -If second cardiac markers increase, may consider cardiac cath. - Consulted cardiology, appreciate recommendations CAD s/p CABG, aortic valve repair w/ bioprosthetic valve, HTN- follows w/ Dr. Walters: Continue Metoprolol 100 mg daily, Losartan 50 mg daily, Imdur 30 mg daily CVA, PAD, HLD: Continue Crestor 40 mg daily, Plavix 75 mg daily PMR- follows w/ Dr. Starr: Continue Gabapentin 100 mg TID, Prednisone 5 mg daily Buttock Abscess On linezolid BID for 2 weeks, Currently completing first week of linezolid T2DM: - Continue Tresiba 15 u daily - BSG ACHS and ISS LALA: CPAP HS GERD: Protonix DVT prophylaxis: Heparin SQ BID Code status: LEVEL V, DNR Dispo: From home, lives w/ - no discharge needs anticipated Advanced Directives Existing Advance Directive: No Existing Living Will: No Existing Power of Divider Operator: No Existing Health Care Proxy: No Resuscitation Status VTE Prophylaxis Will order VTE Prophylaxis: No Reason for no VTE drug order: Treatment not indicated (likely short course hopsital stay) Reason no Mechanical VTE Order: Treatment not indicated Social Service Consult None Apply
[2017-09-20] MEDS ORDERED: DEXTROSE 50% 50 ML SYR IV PRN (07:45)
[2017-09-20] MEDS ORDERED: NITROGLYCERIN 0.4 MG SL PER TAB CHARGE SL PRN (07:45)
[2017-09-20] MEDS ORDERED: INFLUENZA VIRUS QUAD VACCINE 0.5 ML SYR IM. ONE (07:45)
[2017-09-20] MEDS ORDERED: GLUCAGON FOR INJ 1 MG VIAL SQ PRN (07:45)
[2017-09-20] MEDS ORDERED: GLUCOSE 40% GEL 15 GM TUBE PO PRN (07:45)
[2017-09-20] MEDS ORDERED: GLUCOSE 10 TABS/TUBE PO PRN (07:45)
[2017-09-20] MEDS ORDERED: POTASSIUM CHLORIDE 10 MEQ TABCR PO STA (07:52)
[2017-09-20] MEDS ORDERED: IV FLUIDS COMPLETED PRN (08:00)
[2017-09-20 08:30] VITALS: O2SAT 96
[2017-09-20 09:00] VITALS: BP 159/72; PULSE 71; TEMP 36.5; Ht 167.6 cm; Wt 75.7 kg
[2017-09-20] MEDS ORDERED: ACETAMINOPHEN 500 MG TAB PO PRN (09:00)
[2017-09-20] MEDS ORDERED: NITROGLYCERIN 0.4 MG SL PER TAB CHARGE UT PRN (09:00)
[2017-09-20] MEDS ORDERED: LOSARTAN POTASSIUM 50 MG TAB PO SCH (09:00)
[2017-09-20] MEDS ORDERED: CLOPIDOGREL BISULFATE 75 MG TAB PO SCH (10:00)
[2017-09-20] MEDS ORDERED: PANTOprazole SOD 40 MG TAB PO SCH (10:00)
[2017-09-20] MEDS ORDERED: ROSUVASTATIN CALCIUM 20 MG TAB PO SCH (10:00)
[2017-09-20] MEDS ORDERED: INSULIN DETEMIR FLEXPEN/FLEX TOUCH 100 UNITS/ML 3ML SQ SCH ×2 (10:00→21:00)
[2017-09-20] MEDS ORDERED: PNEUMOCOCCAL POLYSACCHARIDES 25 MCG/0.5 ML VIAL/SYR IM. ONE (10:00)
[2017-09-20] MEDS ORDERED: LINEZOLID 600 MG TAB PO ONE (10:00)
[2017-09-20] MEDS ORDERED: CHOLECALCIFEROL 1000 INTER.UNIT TAB PO SCH (10:00)
[2017-09-20] MEDS ORDERED: CALCIUM 600MG + VIT D 400 IU TAB PO SCH (10:00)
[2017-09-20] MEDS ORDERED: PNEUMOCOCCAL ADMINISTRATION CHARGE ONE (10:00)
[2017-09-20] MEDS: GABAPENTIN 100 MG CAP PO SCH ×2 (10:55→16:29)
--- NOTE | 2017-09-20 10:55 | CARDIOLOGY CONSULTATION ---
DATE OF CONSULTATION: 09/20/2017 CONSULTATION REQUESTED BY: Dr. Sunshine. REASON FOR CONSULTATION: Chest pain in the setting of a cardiac history remarkable for prior 3-vessel CABG, bioprosthetic AVR, prior MCA. HISTORY OF PRESENT ILLNESS: Ms. Ponce is a very pleasant 82-year-old woman well known to me from the outpatient setting in prior hospitalizations with a complex past medical history as outlined below, who was readmitted in the setting of chest pain. The patient was previously admitted in July of 2017 again with chest pain, at that time, in the setting of elevated blood pressure. She had a minimally low troponin at that time to 0.48. Decision was made to manage conservatively with medical management and patient has been largely chest pain free since that time. The patient since that hospitalization, she said she has generally felt unwell in the setting of were thought to be boils on her buttocks bilaterally. She has been followed by Dr. Benavides on intermittent p.o. antibiotics. Denies fevers, chills. Denies worsened exercise tolerance. Denies any exertional chest pain. The night of admission, the patient went to sleep and was awoken with left-sided chest pain radiating to her left arm. She took her blood pressure at home and pressures were in the 80s. She took 1 sublingual nitroglycerin with some improvement, but then presented to the ED. Upon arrival here, the patient was hypertensive up to the 180s. She received labetalol, sublingual nitroglycerin, and nitro paste with improvement in symptoms. At the time of interview, the patient was chest pain free. Initial EKG showed subtle lateral ST changes which had previously been noted. Her initial troponin was negative. Chest x-ray unremarkable. PAST MEDICAL HISTORY: 1. Coronary artery disease status post 3-vessel CABG. 2. Bioprosthetic AVR with normal expected transvalvular gradient on last echocardiogram, chronic musculoskeletal chest pain post-sternotomy with costochondritis and polymyalgia rheumatica. 3. Peripheral arterial disease with right ICA stenosis and left subclavian stenosis followed by [facility] vascular surgery. 4. 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 5. Type 2 diabetes, on insulin therapy. 6. Polymyalgia rheumatica, on low dose chronic steroids. 7. Hypertension. 8. Chronic kidney disease. FAMILY HISTORY: Noncontributory due to the patient's age and known comorbidities. SOCIAL HISTORY: She is a lifelong nonsmoker. Denies heavy alcohol use. Lives with her . REVIEW OF SYSTEMS: Ten-point review of systems otherwise negative unless stated in the HPI. ALLERGIES: INCLUDE CEFADROXIL, CLINDAMYCIN, LEVOFLOXACIN, METRONIDAZOLE, AMOXICILLIN, CLAVULANIC ACID, METFORMIN AND SITAGLIPTIN. PHYSICAL EXAMINATION: VITAL SIGNS: Temperature 36.6, pulse 70, blood pressure 139/63. She is satting 96% on room air. GENERAL: The patient appears well, in no acute distress. HEENT: Her sclerae are anicteric. Her oropharynx is clear. Her mucous membranes are moist. NECK: Supple with no lymphadenopathy. LUNGS: Clear to auscultation bilaterally. CARDIAC: She has a regular rate and rhythm with no appreciable murmurs. She has a crisp bioprosthetic click closure sound. Her chest wall is tender to palpation all the way up into her right shoulder. ABDOMEN: Soft, nontender with positive bowel sounds. EXTREMITIES: Her extremities are warm. She has no significant lower extremity edema. She has signs of chronic venous insufficiency. NEUROLOGIC: Grossly nonfocal. PSYCHIATRIC: Alert and oriented and appropriate. LABORATORY DATA: Hemoglobin of 12.7, platelets of 153. Sodium 139, potassium 3.4, BUN 20, creatinine of 1.2. Her initial troponin was negative. EKG and chest x-ray as discussed above. IMPRESSION AND PLAN: 1. Chest pain. 2. Coronary artery disease status post 3-vessel coronary artery bypass graft. 3. Hypertension. 4. Chronic musculoskeletal chest pain. 5. Peripheral arterial disease including subclavian stenosis. 6. Type 2 diabetes. 7. Well-functioning bioprosthetic aortic valve replacement. Ms. Ponce is here with acute onset of chest pain overnight. This was in the setting of elevated blood pressures up in the 180s. Her initial workup has been largely unremarkable from a cardiac standpoint and chest pain is reproducible on exam today. Overall, suspicion that current chest pain represents acute coronary syndrome is relatively low. A second troponin is pending for later today. Assuming that is negative, I feel that the chest pain is most likely related to her prior musculoskeletal issues and that she can be further managed as an outpatient. Her blood pressures at home have been very well controlled and would plan to continue on home antihypertensive regimen. Suspect elevated blood pressures on admission secondary to pain, anxiety. Otherwise, continue current antiplatelet therapy and statin therapy. Thank you for allowing us to participate in the care of this patient.
[2017-09-20] MEDS ORDERED: INSULIN ASPART 100 UNITS/ML 3 ML PEN SC SCH (11:00)
[2017-09-20] MEDS ORDERED: NURSING VERBAL MED ORDER ONE ×2 (11:00→13:30)
[2017-09-20 11:43] VITALS: BP 161/74; PULSE 67; TEMP 36.3; O2SAT 97
[2017-09-20] MEDS ORDERED: IMDSR30 PO (15:40)
--- NOTE | 2017-09-20 15:42 | Discharge Instructions ---
Discharge Instructions Date of Service Sep 20, 2017. Admission Reason for Admission: Chest Pain Discharge Discharge Diagnosis / Problem: Chest pain/ non cardiac Discharge Goals Goal(s): Decrease discomfort, Improve function Activity Recommendations Activity Limitations: resume your previous activity . Instructions / Follow-Up Instructions / Follow-Up Keep original appointment with PCP and [facility] Current Hospital Diet Patient's current hospital diet: Diabetes Type 2 Diet Discharge Diet Recommended Diet: Diabetes Type 2 Diet Pending Studies Studies pending at discharge: no Laboratory Results Hemoglobin A1c Test 08/07/17 09:20 Range/Units Estimated Average Glucose 154 mg/dl Hemoglobin A1c 7.0 H 4.5-5.6 % Medical Emergencies . Who to Call and When: Medical Emergencies: If at any time you feel your situation is an emergency, please call 911 immediately. . Non-Emergent Contact Non-Emergency issues call your: Primary Care Provider Call Non-Emergent contact if: you have any medication questions . . "Provider Documentation" section prepared by Timmy Sunshine. .
[2017-09-20 16:00] VITALS: BP 148/80; PULSE 71; TEMP 36.6; O2SAT 92
[2017-09-20 16:18] VITALS: BP 148/80; PULSE 71; TEMP 36.6; O2SAT 92
[2017-09-20] MEDS ORDERED: SUCRALFATE 1 GM/10 ML UDC PO SCH (17:00)
[2017-09-20] MEDS ORDERED: METOPROLOL SUCC 50MG EXT REL TAB PO SCH (21:00)
[2017-09-20] MEDS ORDERED: LINEZOLID 600 MG TAB PO SCH (21:00)
[2017-09-21] MEDS ORDERED: ISOSORBIDE MONONITRATE 30 MG TABCR PO SCH (09:00)
== END 2017-09-20 16:51 | disposition home or self-care (01) ==
LOC: C.EDB 04:36 → C.MED 07:43 → EDBEDREQ 08:00 → ENRESERV 08:12
PROVIDERS: ADMIT Internal Medicine Sports Medicine; ATTEND Internal Medicine Sports Medicine
DX: R07.89 Other chest pain (principal); M35.3 Polymyalgia rheumatica; E11.9 Type 2 diabetes mellitus without complications; N18.9 Chronic kidney disease, unspecified; G47.33 Obstructive sleep apnea (adult) (pediatric); I25.10 Atherosclerotic heart disease of native coronary artery without angina pectoris; I73.9 Peripheral vascular disease, unspecified; Z79.52 Long term (current) use of systemic steroids; Z95.1 Presence of aortocoronary bypass graft; Z95.2 Presence of prosthetic heart valve; Z79.4 Long term (current) use of insulin; Z86.73 Personal history of transient ischemic attack (TIA), and cerebral infarction without residual deficits; Z90.49 Acquired absence of other specified parts of digestive tract; Z85.038 Personal history of other malignant neoplasm of large intestine; Z88.1 Allergy status to other antibiotic agents; Z79.82 Long term (current) use of aspirin; Z83.3 Family history of diabetes mellitus; Z82.49 Family history of ischemic heart disease and other diseases of the circulatory system

== ENCOUNTER 2017-09-25 09:37 | Emergency (ER) | payer OTHER ==
[~2017-09-25] VITALS: Ht 167.6 cm; Wt 75.8 kg
[~2017-09-25 09:37] MED LIST changes: +IMDSR30 PO; -INSU1INJ33 SQ; +LOSA1TAB38 PO; +LVMI SQ; -PRD/1 PO; +PRED-301 PO; +PRLSR20 PO; +ZOLE5INJ IV; -ZOLP10TA6 PO
[2017-09-25 09:44] VITALS: TEMP 36.8; Ht 167.6 cm; Wt 75.8 kg
[2017-09-25] MEDS ORDERED: SODIUM CHLORIDE 0.9% 1000ML 1,000 ML IV STA (10:33)
[2017-09-25] MEDS ORDERED: SODIUM CHLORIDE 0.9% 1000ML 250 ML IV STA (10:33)
[2017-09-25 11:24] LABS: EOS % 0.4 %; EOS ABS # 0.03 K/uL (0-0.5); HEMATOCRIT 36.7 % (37-47); HEMOGLOBIN 12.1 g/dL (12.0-16.0); IG# 0.01 K/uL (0.00-0.02); LYMPH % 11.6 %; LYMPH ABS # 0.91 K/uL (1.2-3.4); MEAN CELL VOLUME 90.8 fL (80-100); MEAN PLATELET VOLUME 9.7 fL (7.4-10.4); MONO % 7.1 %; MONO ABS # 0.56 K/uL (0.11-0.59); NEUT % 80.8 %; NEUT ABS # 6.35 K/uL (1.4-6.5); PLATELET COUNT 108 K/uL (130-400); RED CELL DISTRIBUTION WIDTH CV 14.3 % (11.5-14.5); RED CELL DISTRIBUTION WIDTH SD 47.7 fL (36.4-46.3); WHITE BLOOD COUNT 7.86 K/uL (4.8-10.8)
[2017-09-25 11:42] LABS: ALBUMIN 3.5 gm/dl (3.4-5.0); CALCIUM 9.1 mg/dl (8.5-10.1); CREATININE 1.15 mg/dl (0.60-1.20); POTASSIUM 3.8 mmol/L (3.5-5.1)
[2017-09-25] MEDS ORDERED: LVMIPEN SQ (11:50)
[2017-09-25] MEDS ORDERED: LOSA50TA6 PO (11:50)
[2017-09-25] MEDS ORDERED: NVLGIPEN SQ (11:50)
--- NOTE | 2017-09-25 11:50 | DIAGNOSTIC IMAGING REPORT ---
CHEST ONE VIEW PORTABLE HISTORY: Atypical CHEST PAIN COMPARISON: Chest 09/20/2017. FINDINGS: The heart remains borderline enlarged. The lungs are clear. No pleural effusions. No pneumothorax. Aortic valve prosthesis and poststernotomy changes are again noted. IMPRESSION: No significant change compared to the prior study. No acute process. Electronically signed by: Marcus Jacob M.D. 09/25/2017 11:48 AM Dictated Date/Time: 09/25/2017 11:44 AM
[2017-09-25] MEDS ORDERED: CRFL PO (11:51)
[2017-09-25 11:53] LABS: CKMB 1.5 ng/ml (0.5-3.6); TOTAL PROTEIN 7.1 gm/dl (6.4-8.2)
[2017-09-25 16:01] VITALS: BP 163/81
[2017-09-25 16:06] VITALS: O2SAT 94
[2017-09-25 16:21] VITALS: PULSE 80
--- NOTE | 2017-09-25 16:30 | EMERGENCY ROOM VISIT NOTE ---
History Report prepared by Ivana: Garcai Brito Under the Supervision of: Dr. Domenico Juarez M.D. First contact with patient: 10:26 Chief Complaint: OTHER COMPLAINT Stated Complaint: WEAK,SICK, SENT BY DR BENAVIDES Nursing Triage Summary: Pt jayant she has been taking antibiotics off and on soince Otober 2016, for sores on her buttocks, states she feels lousy, and anxious, Now having diarrhea fro the antibiotics and feels worse, Pt a/o x4, states she feels so anxious from this whole thing, Lungs CTA, old ssore noted on right buttocks. History of Present Illness The patient is a 82 year old female who presents to the Emergency Room with complaints of worsening generalized weakness beginning this week. The patient states "I feel lousy". She also complains of diarrhea. She has been on antibiotics for the past six months for wounds of her backside. The patient has had three episodes of diarrhea today. She has a previous history of C-Diff. She feels that her symptoms could be related to anxiety. The patient denies headache , fevers, chest pain, or SOB. She notes that she was seen in the ED five days ago for chest pain and was told it was musculoskeletal. She was seen by her PCP for her symptoms three days ago. The patient has a previous history of stroke. She has intermittent headaches, but does not currently have one. Source of History: patient Onset: This week Position: other (generalized) Quality: other (weakness) Timing: worsening Associated Symptoms: + diarrhea, No fevers, No headache, No chest pain, No SOB Review of Systems See HPI for pertinent positives & negatives. A total of 10 systems reviewed and were otherwise negative. Past Medical & Surgical Medical Problems: (1) CAD (coronary artery disease) (2) Carcinoma of colon (3) Chest pain (4) Colectomy (5) Coronary artery disease involving [place] coronary artery (6) Diabetes (7) Dizziness (8) Familial combined hyperlipidemia (9) GERD (gastroesophageal reflux disease) (10) Peptic ulcer (11) Rheumatoid arthritis (12) Stable angina (13) Stroke (14) Vertigo Surgical Problems: (1) History of cholecystectomy (2) History of colectomy (3) Removal of pin, plate, lulu, or screw (4) S/P CABG x 3 Old medical records were reviewed. Nurse's notes were reviewed and I agree with. Family History Cancer Diabetes mellitus FHx: aneurysm Heart disease Hypertension Social History Smoking Status: Never Smoker Alcohol Use: none Drug Use: none Marital Status: Housing Status: lives with significant other Occupation Status: retired Current/Historical Medications Scheduled Calcium Carbonate-Cholecalcife (Calcium 600 + D 600-200 mg-Unit), 1 TABS PO BID Cholecalciferol (Vitamin D3), 2,000 UNITS PO BID Clopidogrel (Plavix), 75 MG PO QPM Gabapentin (Neurontin), 100 MG PO TIDM Insulin Aspart (Novolog Flexpen), 5 UNITS SQ QPM Insulin Detemir (Levemir Flextouch), 15 UNITS SQ HS Isosorbide Mononitrate (Isosorbide Mononitrate ER), 30 MG PO DAILY Losartan Potassium (Cozaar), 50 MG PO DAILY Metoprolol Succinate (Metoprolol Succinate ER), 100 MG PO QPM Pantoprazole (Protonix), 40 MG PO QAM Prednisone (Prednisone), 5 MG PO DAILY Rosuvastatin Calcium (Crestor), 40 MG PO QPM Sucralfate (Carafate), 1 GM PO TIDM Scheduled PRN Acetaminophen (Tylenol Extra Strength), 1,000 MG PO TID PRN for Pain Insulin Aspart (Novolog Flexpen), 1 DOSE SQ TIDM PRN for Hyperglycemia Protocol Nitroglycerin (Nitrostat), 0.4 MG UT UD PRN for Chest Pain Allergies Coded Allergies: Cefadroxil (Verified Allergy, Intermediate, UNKNOWN, 09/20/17) Clindamycin (Verified Allergy, Intermediate, UNKNOWN, 09/20/17) Levofloxacin (Verified Allergy, Intermediate, UNKNOWN, 09/20/17) Metronidazole (Verified Allergy, Intermediate, UNKNOWN, 09/20/17) Amoxicillin (Verified Adverse Reaction, Mild, diarrhea, 09/20/17) Clavulanic Acid (Verified Adverse Reaction, Mild, diarrhea, 09/20/17) Metformin (Verified Adverse Reaction, Mild, diarreha, 07/18/17) Sitagliptin (Verified Adverse Reaction, Mild, diarreha, 07/18/17) Physical Exam Vital Signs Date Time Temp Pulse Resp B/P (MAP) Pulse Ox O2 Delivery O2 Flow Rate FiO2 09/25/17 16:21 80 09/25/17 16:06 78 17 94 09/25/17 16:01 163/81 09/25/17 15:36 76 20 96 09/25/17 15:06 77 18 96 09/25/17 15:01 133/77 09/25/17 14:38 79 18 148/86 97 Room Air 09/25/17 14:36 81 19 97 09/25/17 14:06 84 21 09/25/17 14:01 148/86 09/25/17 13:36 76 18 96 09/25/17 13:06 75 19 97 09/25/17 13:01 77 20 145/80 97 Room Air 09/25/17 12:37 76 20 97 09/25/17 12:08 75 09/25/17 12:01 125/73 09/25/17 11:41 75 18 132/66 96 Room Air 09/25/17 09:44 36.8 85 18 126/70 97 Room Air Physical Exam General: Non-ill, but mildly anxious appearing older female in no acute distress. HEENT: Normal cephalic atraumatic. Pupils are equal round and reactive to light. Extraocular movements are intact. Oropharynx is pink with moist mucous membranes. No swelling of the mouth lips or tongue. Neck: Supple with a midline trachea. No meningeal signs or stiffness, no JVD or bruits. No Stridor. Chest: Clear to auscultation bilaterally. No wheezes or rhonchi. No increased work of breathing. Heart: regular rate and rhythm. Abdomen: Soft nontender, nondistended without rebound guarding or rigidity. Back: Healed ulcerations to the buttocks. Extremities: No cyanosis clubbing or edema. No calf tenderness or assymetry Spine/Back. Non tender to palpation. No CVA tenderness Skin: Good turgor without rashes. Neurologic exam: Cranial nerves two through 12 are intact. Motor and sensation are intact and symmetrical throughout. Medical Decision & Procedures ER Provider Diagnostic Interpretation: Radiology results as stated below per my review and radiologist interpretation: CHEST ONE VIEW PORTABLE FINDINGS: The heart remains borderline enlarged. The lungs are clear. No pleural effusions. No pneumothorax. Aortic valve prosthesis and poststernotomy changes are again noted. IMPRESSION: No significant change compared to the prior study. No acute process. Electronically signed by: Marcus Jacob M.D. 09/25/2017 11:48 AM Laboratory Results 09/25/17 11:10 Red Blood Count 4.04, Mean Corpuscular Volume 90.8, Mean Corpuscular Hemoglobin 30.0, Mean Corpuscular Hemoglobin Concent 33.0, Mean Platelet Volume 9.7, Neutrophils (%) (Auto) 80.8, Lymphocytes (%) (Auto) 11.6, Monocytes (%) (Auto) 7.1, Eosinophils (%) (Auto) 0.4, Basophils (%) (Auto) 0.0, Neutrophils # (Auto) 6.35, Lymphocytes # (Auto) 0.91, Monocytes # (Auto) 0.56, Eosinophils # (Auto) 0.03, Basophils # (Auto) 0.00 09/25/17 11:10 Test 09/25/17 11:10 09/25/17 11:20 09/25/17 11:35 White Blood Count 7.86 K/uL (4.8-10.8) Red Blood Count 4.04 M/uL (4.2-5.4) Hemoglobin 12.1 g/dL (12.0-16.0) Hematocrit 36.7 % (37-47) Mean Corpuscular Volume 90.8 fL (80-100) Mean Corpuscular Hemoglobin 30.0 pg (25-34) Mean Corpuscular Hemoglobin Concent 33.0 g/dl (32-36) Platelet Count 108 K/uL (130-400) Mean Platelet Volume 9.7 fL (7.4-10.4) Neutrophils (%) (Auto) 80.8 % Lymphocytes (%) (Auto) 11.6 % Monocytes (%) (Auto) 7.1 % Eosinophils (%) (Auto) 0.4 % Basophils (%) (Auto) 0.0 % Neutrophils # (Auto) 6.35 K/uL (1.4-6.5) Lymphocytes # (Auto) 0.91 K/uL (1.2-3.4) Monocytes # (Auto) 0.56 K/uL (0.11-0.59) Eosinophils # (Auto) 0.03 K/uL (0-0.5) Basophils # (Auto) 0.00 K/uL (0-0.2) RDW Standard Deviation 47.7 fL (36.4-46.3) RDW Coefficient of Variation 14.3 % (11.5-14.5) Immature Granulocyte % (Auto) 0.1 % Immature Granulocyte # (Auto) 0.01 K/uL (0.00-0.02) Anion Gap 7.0 mmol/L (3-11) Est Creatinine Clear Calc Drug Dose 39.9 ml/min Estimated GFR () 51.7 Estimated GFR (Non- 44.6 BUN/Creatinine Ratio 18.5 (10-20) Calcium Level 9.1 mg/dl (8.5-10.1) Total Bilirubin 0.5 mg/dl (0.2-1) Direct Bilirubin 0.2 mg/dl (0-0.2) Aspartate Amino Transf (AST/SGOT) 29 U/L (15-37) Alanine Aminotransferase (ALT/SGPT) 32 U/L (12-78) Alkaline Phosphatase 62 U/L (45-117) Total Creatine Kinase 53 U/L (26-192) Creatine Kinase MB 1.5 ng/ml (0.5-3.6) Creatine Kinase MB Ratio 2.8 (0-3.0) Total Protein 7.1 gm/dl (6.4-8.2) Albumin 3.5 gm/dl (3.4-5.0) Lipase 87 U/L (73-393) Thyroid Stimulating Hormone (TSH) 1.200 uIu/ml (0.300-4.500) Bedside Troponin I 0.040 ng/ml (0-0.045) Urine Color YELLOW Urine Appearance CLEAR (CLEAR) Urine pH 6.0 (4.5-7.5) Urine Specific [place] 1.011 (1.000-1.030) Urine Protein NEG (NEG) Urine Glucose (UA) NEG (NEG) Urine Ketones NEG (NEG) Urine Occult Blood NEG (NEG) Urine Nitrite NEG (NEG) Urine Bilirubin NEG (NEG) Urine Urobilinogen NEG (NEG) Urine Leukocyte Esterase NEG (NEG) Laboratory studies as stated above per my review. Medications Administered Medications (Trade) Dose Ordered Sig/Sincere Route Start Time Stop Time Status Last Admin Dose Admin Sodium Chloride 250 ml @ 999 mls/hr Q16M STAT IV 09/25/17 10:33 09/25/17 10:48 DC 09/25/17 14:37 999 MLS/HR Sodium Chloride 1,000 ml @ 100 mls/hr Q10H STAT IV 09/25/17 10:33 09/25/17 20:32 09/25/17 11:38 100 MLS/HR ECG Per My Interpretation Indication: weakness Rate (beats per minute): 76 Rhythm: normal sinus Findings: other (Non-specific ST and T wave abnormality. No PVCs. ) Comparison ECG Date: September 20, 2017 Change: no significant change ED Course 1027: Past medical records reviewed. The patient was evaluated in room B11A, and a complete history and physical examination were performed. 1033: Ordered Sodium Chloride 1000 ml @ 100 mls/hr IV, Sodium Chloride 250 ml @ 999 mls/hr IV. 1445: I checked in on the patient. She feels more comfortable. 1625: Upon reevaluation, the patient is resting comfortably. I discussed the results and treatment plan with her. She verbalized agreement of the treatment plan. The patient was discharged home. Medical Decision Differentials include, but are not limited to; weakness, anxiety, infection, C. Diff, UTI and electrolyte or metabolic abnormality. This patient comes in as described above. He was placed in room B 11. She is here for treatment and evaluation of generalized feeling ill and weak. On exam she has a nonfocal neurologic exam. she has stable vital signs. she has nothing to suggest sepsis or infection. She is being treated with Zyvox for infection on her buttocks. These areas are scabbed over and do not have fluctuance or redness and do not appear to be acutely infected. She was recently hospitalized overnight and ruled out for cardiac disease. EKG shows no acute changes compared to old her troponin is not elevated. She has no white count or fever to suggest infection. She has no acute electrolyte or metabolic abnormalities. She was unable to give a urine specimen while she was here. She was gently hydrated with IV normal saline. Did discuss case with Dr. Benavides and he agrees with stopping her antibiotics and he will see her on Monday. The patient and her are happy with the plan and she was discharged to home and encouraged to return if she has worsening symptoms, any new problems or concerns. Medication Reconcilliation Current Medication List: was personally reviewed by me Blood Pressure Screening Patient's blood pressure: Normal blood pressure Blood pressure disposition: Did not require urgent referral Consults Time Called: [id number] Consulting Physician: Dr. Benavides - Infectious Disease Returned Call: [phone] Discussed the patient's case. The patient will keep her scheduled appointment next week. Dr. Benavides feels that the patient would be safe to stop antibiotics. Impression Primary Impression: Weakness Additional Impression: Diarrhea Scribe Attestation The scribe's documentation has been prepared under my direction and personally reviewed by me in its entirety. I confirm that the note above accurately reflects all work, treatment, procedures, and medical decision making performed by me. Departure Information Dispostion Home / Self-Care Referrals Davion Flores M.D. (PCP) Forms HOME CARE DOCUMENTATION FORM, IMPORTANT VISIT INFORMATION, WORK / SCHOOL INSTRUCTIONS Patient Instructions My [facility] Additional Instructions Rest. Hold your antibiotics Follow-up with Dr. Benavides on Monday Return if: Worsening symptoms, fever chills, numbness weakness, chest pain, any new problems or concerns Problem Qualifiers
[2017-09-29] MEDS ORDERED: ISOS30TA35 PO (13:51)
[2017-09-29] MEDS ORDERED: INSU1INJ33 SQ (15:01)
[2017-09-29] MEDS ORDERED: OXYC1TAB3 PO (16:14)
== END 2017-09-25 16:35 | disposition home or self-care (01) ==
LOC: C.EDB 09:38
DX: R53.1 Weakness (principal); R19.7 Diarrhea, unspecified; Z85.038 Personal history of other malignant neoplasm of large intestine; I25.10 Atherosclerotic heart disease of native coronary artery without angina pectoris; Z90.49 Acquired absence of other specified parts of digestive tract; E11.9 Type 2 diabetes mellitus without complications; M06.9 Rheumatoid arthritis, unspecified; Z86.73 Personal history of transient ischemic attack (TIA), and cerebral infarction without residual deficits; Z95.1 Presence of aortocoronary bypass graft; Z82.49 Family history of ischemic heart disease and other diseases of the circulatory system

== ENCOUNTER → 2018-01-15 | Outpatient (CLI) | payer OTHER ==
[~2018-01-15] MED LIST changes: +CRFL PO; +CYM30 PO; +CZR25 PO; -IMDSR30 PO; +INSU1INJ33 SQ; +ISOS30TA35 PO; -LOSA1TAB38 PO; +LOSA50TA6 PO; -LVMI SQ; +NVLGIPEN SQ; +OXYC-90 PO; -PRLSR20 PO; -ZOLE5INJ IV
--- NOTE | 2018-01-16 14:42 | MAMMOGRAPHY REPORT ---
BILATERAL DIGITAL SCREENING MAMMOGRAM TOMOSYNTHESIS WITH CAD: 01/15/2018 CLINICAL HISTORY: Routine screening. Patient has no complaints. TECHNIQUE: The study was acquired using full field digital technology and interpreted from soft copy. Breast tomosynthesis in addition to standard 2D mammography was performed. Current study was also ev aluated with a Computer Aided Detection (CAD) system. COMPARISON: Comparison is made to exams dated: 07/31/2017 mammogram, 01/23/2017 mammogram, 01/12/2017 ma mmogram, 11/26/2015 mammogram, 08/26/2015 mammogram, and 08/19/2015 mammogram - [facility] ter. BREAST COMPOSITION: There are scattered areas of fibroglandular density in both breasts. FINDINGS: There is a newly visualized 9 mm triangular focal asymmetry in the upper outer anterior lef t breast. Although this focal asymmetry is mixed density on the CC tomosynthesis images and could re present fat necrosis, particularly given fat necrosis in the medial left breast, it was not present o n prior mammograms and is therefore indeterminate. Additional spot compression tomosynthesis views a nd possible ultrasound are recommended for further characterization. There are mild to moderate vascular calcifications bilaterally. Stable benign oil cysts/fat necrosis in the medial left breast. No other suspicious mass, architectural distortion or cluster of microcal cifications is seen. IMPRESSION: ACR BI-RADS CATEGORY 0: INCOMPLETE EVALUATION: NEED ADDITIONAL IMAGING EVALUATION The newly visualized 9 mm triangular focal asymmetry in the upper outer left breast needs additional evaluation. The patient will be called to schedule an appointment. Some breast cancers are not detected with mammography. A negative mammographic report should not faustina y biopsy if a clinically suggestive mass is present. Ginny Pinedo M.D. ay/:01/15/2018 16:24:59 [employer]: RT Jacqui(Eyal)(M), [facility] letter sent: Addl Imaging 0 BI-RADS Code: ACR BI-RADS Category 0: Incomplete Evaluation: Need Additional Imaging Evaluation
== END | disposition home or self-care (01) ==
LOC: C.MAMM 13:20
PROVIDERS: ATTEND Internal Medicine Geriatric Medicine
DX: Z12.31 Encounter for screening mammogram for malignant neoplasm of breast (principal); N64.9 Disorder of breast, unspecified

== ENCOUNTER 2018-01-22 05:00 | Emergency (ER) | payer OTHER ==
[~2018-01-22] VITALS: Ht 167.6 cm; Wt 78.5 kg
[~2018-01-22 05:00] MED LIST changes: -CYM30 PO; -CZR25 PO
[2018-01-22 05:06] VITALS: TEMP 37.1; Ht 167.6 cm; Wt 78.5 kg
[2018-01-22 05:10] VITALS: O2SAT 94
[2018-01-22] MEDS ORDERED: ONDANSETRON INJ 2 MG/ML 2 ML VIAL IV STA (05:16)
--- NOTE | 2018-01-22 05:22 | EMERGENCY ROOM VISIT NOTE ---
History First contact with patient: 05:12 Chief Complaint: CHEST PAIN Stated Complaint: CHEST PAIN, Nursing Triage Summary: pt states around 2300 she was woken up with cp, radiating down her elft arm and she feels nauseated. does have hx of bypass surgery about 1 1/2 yrs ago. pt took 2 baby asa and 2 ntg History of Present Illness The patient is a 82 year old female who presents to the Emergency Room left chest pain. 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 Waxing and waning throughout night. Radiates to left arm. Sharp/burning in nature. Nothing makes worse. SLNTG makes better. ASA and SLNTG prior to arrival. After SLNTG she got nauseous. Denies headache, shob, weakness, syncope, palpitations, vomiting, abdominal pain, leg swelling, nor other symptoms. History of CABG with valve replaced 2 yrs ago. She is on Plavix. Is not on Coumadin. Patient admits this is not like her previous cardiac pain. Admits that she ate ice cream yesterday that didn't sit well with her and she previously has had reflux with it. Review of Systems See HPI for pertinent positives & negatives. A total of 10 systems reviewed and were otherwise negative. Past Medical/Surgical History Medical Problems: (1) CAD (coronary artery disease) (2) Carcinoma of colon (3) Chest pain (4) Colectomy (5) Coronary artery disease involving [place] coronary artery (6) Diabetes (7) Dizziness (8) Familial combined hyperlipidemia (9) GERD (gastroesophageal reflux disease) (10) Peptic ulcer (11) Rheumatoid arthritis (12) Stable angina (13) Stroke (14) Vertigo Surgical Problems: (1) History of cholecystectomy (2) History of colectomy (3) Removal of pin, plate, lulu, or screw (4) S/P CABG x 3 Family History Cancer Diabetes mellitus FHx: aneurysm Heart disease Hypertension Social History Smoking Status: Never Smoker Alcohol Use: none Drug Use: none Marital Status: Housing Status: lives with significant other Occupation Status: retired Current/Historical Medications Scheduled Calcium Carbonate-Cholecalcife (Calcium 600 + D 600-200 mg-Unit), 1 TABS PO BID Cholecalciferol (Vitamin D3), 2,000 UNITS PO BID Clopidogrel (Plavix), 75 MG PO QPM Duloxetine HCl (Duloxetine HCl), 30 MG PO DAILY Gabapentin (Neurontin), 100 MG PO TIDM Insulin Aspart (Novolog Flexpen), 5 UNITS SQ QPM Insulin Degludec (Tresiba Flextouch), 15 UNIT SQ HS Isosorbide Mononitrate Ext Rel (Imdur Ext Rel), 1 TAB PO QAM Losartan Potassium (Losartan Potassium), 25 MG PO DAILY Metoprolol Succinate (Metoprolol Succinate ER), 100 MG PO QPM Pantoprazole (Protonix), 40 MG PO QAM Prednisone (Prednisone), 5 MG PO QAM Rosuvastatin Calcium (Crestor), 40 MG PO QPM Sucralfate (Carafate), 1 GM PO TIDM Scheduled PRN Acetaminophen (Tylenol Extra Strength), 1,000 MG PO TID PRN for Pain Insulin Aspart (Novolog Flexpen), 1 DOSE SQ TIDM PRN for Hyperglycemia Protocol Nitroglycerin (Nitrostat), 0.4 MG UT UD PRN for Chest Pain Physical Exam Vital Signs Date Time Temp Pulse Resp B/P (MAP) Pulse Ox O2 Delivery O2 Flow Rate FiO2 01/22/18 06:48 66 18 165/70 96 01/22/18 06:34 62 18 173/75 95 Room Air 01/22/18 05:10 94 Room Air 01/22/18 05:10 65 01/22/18 05:06 37.1 67 20 185/82 94 Room Air Physical Exam GENERAL: Patient is anxious appearing and in mild distress. EYES: No scleral icterus, unremarkable pupils. ENT: Mucous membranes moist, no nasal congestion. NECK: No masses appreciated, no meningismus, trachea is midline. RESPIRATORY: No dyspnea. Clear to auscultation and equal bilaterally. No wheeze , no rhonchi. CARDIOVASCULAR: Regular rate and rhythm. No murmurs, rubs, gallops appreciated. GASTROINTESTINAL: Abdomen soft, nontender, no peritonitis. Bowel sounds positive. No masses appreciated. BACK: No midline tenderness, no CVA tenderness EXTREMITIES: Normal motion all extremities, no cyanosis, no edema. NEUROLOGIC: Alert and oriented, no acute motor or sensory deficits, no focal weakness, cranial nerves grossly intact. SKIN: No rash, no jaundice, no diaphoresis. Medical Decision & Procedures ER Provider Diagnostic Interpretation: X ray results are stated below per my interpretation: Chest: 1 view: No infiltrate, no effusion. Enlarged cardiac border similar to previous. Mild congestive findings similar. Sternotomy wires noted. Similar to CXR from 09/25/17. Laboratory Results 01/22/18 05:15 Red Blood Count 4.32, Mean Corpuscular Volume 93.1, Mean Corpuscular Hemoglobin 29.6, Mean Corpuscular Hemoglobin Concent 31.8, Mean Platelet Volume 10.4, Neutrophils (%) (Auto) 49.0, Lymphocytes (%) (Auto) 37.3, Monocytes (%) (Auto) 11.6, Eosinophils (%) (Auto) 1.7, Basophils (%) (Auto) 0.3, Neutrophils # (Auto ) 3.51, Lymphocytes # (Auto) 2.67, Monocytes # (Auto) 0.83, Eosinophils # (Auto ) 0.12, Basophils # (Auto) 0.02 01/22/18 05:15 01/22/18 06:17 Test 01/22/18 05:15 01/22/18 06:17 01/22/18 06:19 White Blood Count 7.16 K/uL (4.8-10.8) Red Blood Count 4.32 M/uL (4.2-5.4) Hemoglobin 12.8 g/dL (12.0-16.0) Hematocrit 40.2 % (37-47) Mean Corpuscular Volume 93.1 fL (80-100) Mean Corpuscular Hemoglobin 29.6 pg (25-34) Mean Corpuscular Hemoglobin Concent 31.8 g/dl (32-36) Platelet Count 176 K/uL (130-400) Mean Platelet Volume 10.4 fL (7.4-10.4) Neutrophils (%) (Auto) 49.0 % Lymphocytes (%) (Auto) 37.3 % Monocytes (%) (Auto) 11.6 % Eosinophils (%) (Auto) 1.7 % Basophils (%) (Auto) 0.3 % Neutrophils # (Auto) 3.51 K/uL (1.4-6.5) Lymphocytes # (Auto) 2.67 K/uL (1.2-3.4) Monocytes # (Auto) 0.83 K/uL (0.11-0.59) Eosinophils # (Auto) 0.12 K/uL (0-0.5) Basophils # (Auto) 0.02 K/uL (0-0.2) RDW Standard Deviation 52.1 fL (36.4-46.3) RDW Coefficient of Variation 15.4 % (11.5-14.5) Immature Granulocyte % (Auto) 0.1 % Immature Granulocyte # (Auto) 0.01 K/uL (0.00-0.02) Anion Gap 8.0 mmol/L (3-11) Est Creatinine Clear Calc Drug Dose 47.6 ml/min Estimated GFR () 62.7 Estimated GFR (Non- 54.1 BUN/Creatinine Ratio 16.5 (10-20) Calcium Level 9.1 mg/dl (8.5-10.1) Total Bilirubin 0.4 mg/dl (0.2-1) Alanine Aminotransferase (ALT/SGPT) 35 U/L (12-78) Alkaline Phosphatase 72 U/L (45-117) Troponin I < 0.015 ng/ml (0-0.045) Total Protein 7.6 gm/dl (6.4-8.2) Albumin 3.5 gm/dl (3.4-5.0) Globulin 4.1 gm/dl (2.5-4.0) Albumin/Globulin Ratio 0.9 (0.9-2) Lipase 105 U/L (73-393) Aspartate Amino Transf (AST/SGOT) U/L (15-37) Bedside Troponin I < 0.030 ng/ml (0-0.045) Medications Administered Medications (Trade) Dose Ordered Sig/Sincere Route Start Time Stop Time Status Last Admin Dose Admin Ondansetron HCl (Zofran Inj) 4 mg NOW STAT IV 01/22/18 05:16 01/22/18 05:17 DC 01/22/18 05:26 4 MG Ranitidine HCl (zANTac SYRUP) 150 mg NOW ONCE PO 01/22/18 06:15 01/22/18 06:16 DC 01/22/18 06:33 150 MG Lidocaine HCl (Viscous Lidocaine 2% Soln) 20 ml STK-MED ONCE .ROUTE 01/22/18 06:30 01/22/18 06:31 DC 01/22/18 06:33 20 ML Al Hydroxide/Mg Hydroxide (Maalox Susp) 30 ml STK-MED ONCE .ROUTE 01/22/18 06:30 01/22/18 06:31 DC 01/22/18 06:33 30 ML ECG Per My Interpretation Indication: chest pain Rate (beats per minute): 70 Rhythm: normal sinus Findings: nonspecific-ST abn (Anterolateral), no acute ischemic change, no ectopy Comparison ECG Date: 09/25/17 Change: no significant change Medical Decision Differential: Cardiac Ischemia (STEMI, NSTEMI, Unstable Angina, etc), Aortic Dissection, Arrhythmia, Pulmonary Embolism, Pneumonia, Pneumothorax, MSK, Infectious, Pericarditis/Myocarditis, Esophageal Rupture, Gastrointestinal, amongst other pathologies entertained. 82 yr old female well known to me from previous visits. By time of arrival she has already been having pain for at least 6 hours. Admits she is thinking it is heart burn but is concerned given her previous cardiac history. She looks well and other than a bit hypertensive her vitals are good. Admits not taking morning BP meds yet. She has EKG which is unchanged from previous. Labs unremarkable. Trop x 2 negative both > 6 hours from initial symptoms. She is very much wishing to get home. She is in no distress. She will be with . Understands that with her history she could have cardiac issue at any time and that she can return at any time if worsening or change in symptoms. Will follow up with her PCP and Cards as outpatient. She does not have SHOB nor symptoms compatible with PE, nor dissection. She is not infected and CXR similar to multiple previous. Head Trauma GCS Score: 15 Medication Reconcilliation Current Medication List: was personally reviewed by me Blood Pressure Screening Patient's blood pressure: Elevated blood pressure Blood pressure disposition: Referred to PCP Impression Primary Impression: Left sided chest pain Departure Information Dispostion Home / Self-Care Condition GOOD Referrals Davion Flores M.D. (PCP) Patient Instructions ED Chest Pain Atypical Unkn Cause, My 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 If worsening or change in your pain call 911 or return immediately. We are always here to help. Over the next few days it may be helpful to eat a bland diet and avoid spicy foods.
[2018-01-22 05:27] LABS: BASO % 0.3 %; BASO ABS # 0.02 K/uL (0-0.2); EOS % 1.7 %; EOS ABS # 0.12 K/uL (0-0.5); HEMATOCRIT 40.2 % (37-47); HEMOGLOBIN 12.8 g/dL (12.0-16.0); IG# 0.01 K/uL (0.00-0.02); LYMPH % 37.3 %; LYMPH ABS # 2.67 K/uL (1.2-3.4); MEAN CELL VOLUME 93.1 fL (80-100); MEAN CORPUSCULAR HEMOGLOBIN 29.6 pg (25-34); MEAN CORPUSCULAR HGB CONC 31.8 g/dl (32-36); MEAN PLATELET VOLUME 10.4 fL (7.4-10.4); MONO % 11.6 %; MONO ABS # 0.83 K/uL (0.11-0.59); NEUT ABS # 3.51 K/uL (1.4-6.5); PLATELET COUNT 176 K/uL (130-400); RED CELL DISTRIBUTION WIDTH CV 15.4 % (11.5-14.5); RED CELL DISTRIBUTION WIDTH SD 52.1 fL (36.4-46.3); WHITE BLOOD COUNT 7.16 K/uL (4.8-10.8)
[2018-01-22] MEDS ORDERED: CYM30 PO (05:50)
[2018-01-22] MEDS ORDERED: CZR25 PO (05:51)
[2018-01-22 05:56] LABS: ALBUMIN 3.5 gm/dl (3.4-5.0); ALKALINE PHOSPHATASE 72 U/L (45-117); ALT/SGPT 35 U/L (12-78); BLOOD UREA NITROGEN 16 mg/dl (7-18); CALCIUM 9.1 mg/dl (8.5-10.1); CARBON DIOXIDE 26 mmol/L (21-32); CREATININE 0.98 mg/dl (0.60-1.20); GLUCOSE 119 mg/dl (70-99); LIPASE 105 U/L (73-393); SODIUM 139 mmol/L (136-145); TOTAL PROTEIN 7.6 gm/dl (6.4-8.2)
[2018-01-22] MEDS ORDERED: GI COCKTAIL PO STA (06:12)
[2018-01-22] MEDS ORDERED: RANITIDINE HCL SYRUP 150 MG/10 ML UDC PO ONE (06:15)
[2018-01-22] MEDS ORDERED: ALUMINUM/MAGNESIUM SUSP 30 ML UDC ONE (06:30)
[2018-01-22] MEDS ORDERED: LIDOCAINE HCL 2% VISC SOLN 20 ML UDC ONE (06:30)
[2018-01-22 06:48] VITALS: BP 165/70; PULSE 66; O2SAT 96
--- NOTE | 2018-01-22 07:24 | DIAGNOSTIC IMAGING REPORT ---
SINGLE VIEW CHEST CLINICAL HISTORY: Atypical chest pain. FINDINGS: An AP, portable, upright chest radiograph is compared to chest x-ray dated 09/25/2017 and correlated with chest CT dated 07/18/2017. The examination is degraded by portable technique and apical lordotic positioning. The patient is status post midline sternotomy and aortic valve surgery. The heart is enlarged and there is atherosclerotic calcification of the thoracic aorta. The pulmonary vasculature is noncongested. Chronic interstitial thickening is similar to previous. No airspace consolidation or pleural effusion is identified. No pneumothorax is seen. The skeletal structures are osteopenic. The bony thorax is grossly intact. IMPRESSION: Cardiomegaly with no acute cardiopulmonary abnormality. Electronically signed by: Efren Taylor M.D. 01/22/2018 7:23 AM Dictated Date/Time: 01/22/2018 7:22 AM
== END 2018-01-22 06:48 | disposition home or self-care (01) ==
LOC: C.EDB 05:01 → C.EDA 06:48
DX: R07.89 Other chest pain (principal); R03.0 Elevated blood-pressure reading, without diagnosis of hypertension; M06.9 Rheumatoid arthritis, unspecified; E11.9 Type 2 diabetes mellitus without complications; Z79.4 Long term (current) use of insulin; Z79.02 Long term (current) use of antithrombotics/antiplatelets; K21.9 Gastro-esophageal reflux disease without esophagitis; E78.4 Other hyperlipidemia; K27.9 Peptic ulcer, site unspecified, unspecified as acute or chronic, without hemorrhage or perforation; Z82.49 Family history of ischemic heart disease and other diseases of the circulatory system

== ENCOUNTER → 2018-01-24 | Outpatient (CLI) | payer OTHER ==
[~2018-01-24] MED LIST changes: +CYM30 PO; +CZR25 PO; -LOSA50TA6 PO; -OXYC-90 PO
--- NOTE | 2018-01-24 13:51 | MAMMOGRAPHY REPORT ---
UNILATERAL LEFT DIGITAL DIAGNOSTIC MAMMOGRAM TOMOSYNTHESIS AND TARGETED LEFT ULTRASOUND: 01/24/2018 CLINICAL HISTORY: 82-year-old woman called back from screening mammography for a newly visualized tri angular focal asymmetry in the upper outer quadrant of the left breast. Patient has a history of prio r trauma, bruising and fat necrosis in the medial left breast. More recently she had a fall and repor ts trauma to the lateral left breast, with persistent mild resolving ecchymosis still present in the lateral/upper outer quadrant of the left breast. TECHNIQUE: Spot compression left CC and MLO 2D and tomosynthesis images were obtained. COMPARISON: Comparison is made to exams dated: 01/15/2018 mammogram, 07/31/2017 mammogram, 01/23/2017 ma mmogram, 01/12/2017 mammogram, 11/26/2015 mammogram, and 08/26/2015 mammogram - [facility]. BREAST COMPOSITION: The tissue of left breast is almost entirely fatty. FINDINGS: The spot compression tomosynthesis views of the left breast demonstrate a persistent 7.9 x 4.0 x 5.4 mm focal asymmetry in the upper outer middle to anterior left breast. There are small roun ded lucent areas within this focal asymmetry suggesting this process could represent fat necrosis. N o associated spiculation or calcification. Further evaluation with ultrasound was performed. Targeted ultrasound was performed in the upper outer quadrant of the left breast in an area of visibl e resolving ecchymosis. In the 1:00 axis, 4 cm from the nipple within an area of bruising, there is a mixed echogenicity peripherally echogenic centrally hypoechoic nonvascular mass that has the appear ance of evolving hematoma and/or fat necrosis. The central hypoechoic component measures 3.9 x 5.3 m m and correlates with the mammographic finding. Given the noted history of trauma with visible bruis ing this finding is considered benign and recommend return to annual screening mammography schedule. IMPRESSION: ACR BI-RADS CATEGORY 2: BENIGN, ULTRASOUND ACR BI-RADS CATEGORY 2: BENIGN The newly visualized focal asymmetry in the upper outer left breast is most compatible with an evolvi ng hematoma and/or fat necrosis based on mammogram/ultrasound features as well as the patient's clini tresa history and persistent visible ecchymosis in an area of trauma. This finding is benign and recom mend return to annual screening mammography schedule. These results and recommendations were discussed with the patient at the time of the exam. Some breast cancers are not detected with mammography. A negative mammographic report should not faustina y biopsy if a clinically suggestive mass is present. Ginny Pinedo M.D. ay/:01/24/2018 12:17:16 Cable Mechanic: RT Jacqui(R)(M), [facility]; Lj [facility] letter sent: Normal 1/2 OVERALL STUDY BIRADS: 2 Benign
== END | disposition home or self-care (01) ==
LOC: C.MAMM 10:52
PROVIDERS: ATTEND Physician Assistant Medical
DX: N64.89 Other specified disorders of breast (principal)

== ENCOUNTER 2018-11-07 06:38 | Inpatient (IN) ==
--- NOTE | 2018-11-01 12:07 | Anesthesiology Consultation ---
Date of Service November 01, 2018 Assessment & Plan (1) Encounter for pre-operative examination: Preoperative cardiac evaluation 10/31/2018: "She is currently stable and asymptomatic from a cardiovascular standpoint with no anginal symptoms. She has no signs or symptoms of CHF. Her most recent echo in July 2017 demonstrated normal LV systolic function and normal transvalvular gradients for her bioprosthetic aortic valve. Her bioprosthetic valve is functioning well on examination today. Her heart rate and blood pressure are well controlled. Given this information patient is at an acceptable risk to proceed with upcoming surgery without any additional cardiovascular testing or intervention." CHECK BSG AM DOS Chart Review Chart Review: Acceptable Risk for Surgery and Patient NOT seen in Pre Admission Testing History Surgery Operation Date: 11/07/18 09:30 Proposed Procedures p Laparoscopic Assisted Partial Colectomy, Possible Open - Ruperto Joseph DO, FACS Height/Weight Height: 5 ft 8 in Weight: 76.6 kg Allergies Allergy/AdvReac Type Severity Reaction Status Date / Time azithromycin AdvReac Intermediate Diarrhea Verified 10/12/18 11:48 cefadroxil AdvReac Intermediate Diarrhea Verified 10/12/18 11:48 clindamycin AdvReac Intermediate Diarrhea Verified 10/12/18 11:48 doxycycline AdvReac Intermediate Diarrhea Verified 10/12/18 11:48 levofloxacin AdvReac Intermediate Diarrhea Verified 10/12/18 11:48 metronidazole AdvReac Intermediate Diarrhea Verified 10/12/18 11:48 sulfamethoxazole AdvReac Intermediate Diarrhea Verified 10/12/18 11:48 [From Bactrim] trimethoprim [From Bactrim] AdvReac Intermediate Diarrhea Verified 10/12/18 11:48 amoxicillin AdvReac Mild diarrhea Verified 10/12/18 11:48 clavulanic acid AdvReac Mild diarrhea Verified 10/12/18 11:48 metformin AdvReac Mild Diarrhea Verified 10/12/18 11:48 sitagliptin AdvReac Mild diarreha Verified 10/12/18 11:48 Medications Home Medications Medication Instructions Recorded Confirmed Last Taken Calcium 600 + D(3) 1 tab PO BID 02/15/18 10/12/18 09/26/18 Novolog Flexpen U-100 Insulin 5 unit SUBCUT 1700 02/15/18 10/12/18 09/26/18 Tresiba FlexTouch U-100 15 unit SUBCUT HS 09/11/2710/12/18 09/26/18 acetaminophen [Tylenol Extra 1,000 mg PO TID PRN 02/15/18 10/12/18 09/27/18 06:00 Strength] cholecalciferol (vitamin D3) 2,000 unit PO BID 02/15/18 10/12/18 09/26/18 [Vitamin D3] clopidogrel [Plavix] 75 mg PO HS 02/15/18 10/12/18 09/18/18 diclofenac sodium [Voltaren] 2 g TOPICAL QID PRN 02/15/18 10/12/18 02/15/18 duloxetine [Cymbalta] 30 mg PO 1200 02/15/18 10/12/18 09/26/18 gabapentin 100 mg PO TID 02/15/18 10/12/18 09/26/18 isosorbide mononitrate 30 mg PO QAM 02/15/18 10/12/18 09/27/18 06:00 losartan 25 mg PO QAM 02/15/18 10/12/18 09/27/18 06:00 metoprolol succinate [Toprol XL] 100 mg PO QPM 02/15/18 10/12/18 09/26/18 nitroglycerin [Nitrostat] 0.4 mg SUBLINGUAL DIRECTED PRN 02/15/18 10/12/18 Unknown prednisone 5 mg PO QAM 02/15/18 10/12/18 09/27/18 06:00 rosuvastatin [Crestor] 40 mg PO QPM 02/15/18 10/12/18 09/26/18 zolpidem [Ambien] 5 mg PO HS PRN 02/15/18 10/12/18 07/29/18 loratadine 10 mg PO DAILY PRN 10/12/18 10/12/18 Unknown triamcinolone acetonide [Nasacort] 1 spray INTRANASAL DAILY PRN 10/12/18 10/12/18 Unknown Past Medical History Medical History CAD (coronary artery disease) Severe, s/p CABG x 3 with AVR 03/2016, complicated by post-op CVA. 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) Hearing deficit Kidney stones Osteoarthritis Peptic ulcer (02/05/11) Spinal stenosis Past Family History Family History Brother Family history of diabetes mellitus Grandfather (Maternal) Family history of diabetes mellitus Grandmother (Maternal) Family hx of colon cancer Other No family history of adverse response to anesthesia Past Surgical History Surgical History [place] of [place] [facility] [place] of bilateral cataract extraction History of bilateral tubal ligation History of cholecystectomy History of colectomy 2006 History of colonoscopy History of dilatation and curettage History of esophagogastroduodenoscopy (EGD) History of foot surgery right foot--no hardware in place History of open reduction and internal fixation (ORIF) procedure right hip hardware in place History of tonsillectomy and adenoidectomy History of tooth extraction partial upper denture S/P CABG x 3 [place] [facility] [place] post incision and drainage sebaceous cyst Social History Smoking Status: Never smoker Smoking cigarettes per day: 0 Do You Dip or Chew Tobacco: No Hx Alcohol Use: No Alcohol Intake Frequency Comment: 0 Hx Substance Use: No substance use type: does not use Testing Laboratory Results 10/08/18 WBC: 8.33 H/H: 13.2/41.1 PLATELETS: 172 SODIUM: 136 POTASSIUM: 4.3 CHLORIDE: 104 CO2: 28 BUN: 20 CREATININE: 1.0 GLUCOSE: 144 A1C (08/07/18): 7.6% PT: 10.8 INR: 1.1 Electrocardiogram Date: 02/18/18 Sinus rhythm at 74 bpm with premature atrial complexes. Nonspecific ST and T wave abnormality. Chest X-Ray Date: 02/16/18 Findings: + NAD Echocardiogram Date: 07/18/17 EF: 55-60% Left ventricular systolic function is normal. No regional wall motion abnormali ties noted. There is borderline concentric left ventricular hypertrophy. Diastolic dysfunction, Grade II (pseudonormalization pattern). The prosthetic aortic valve appears to open well. There is mild mitral regurgitation. The left ventricle is normal in size. Other Testing Chest CT 10/08/18 1. No evidence of metastatic disease within the chest. 2. No change in several groundglass opacities, including a 1.4 cm left lower lobe subpleural opacity. These are indeterminate and can be assessed on subsequent exams to ensure stability. 3. Tree-in-bud nodules within the right upper lobe which were present on prior exams and favor a mild inflammatory or infectious process. Carotid Doppler 11/10/17 > 70% stenosis in the DEJA < 50% stenosis in the LICA >50% stenosis in L ECA. Antegrade flow in both vertebral arteries. Progression in the R ICA stenosis since last exam here in 05/2015.
[~2018-11-07 06:38] MED LIST changes: -ACET-1257 PO; -CALC-452 PO; -CHOL2000 PO; -CLOP1TAB15 PO; -CRFL PO; -CYM30 PO; -CZR25 PO; -GABA-112 PO; -INSU1INJ33 SQ; -ISOS30TA35 PO; +LR 15ML/HR IV SCH; -NITR0.4S UT; -NVLGI/PEN SQ; -NVLGIPEN SQ; -PANT40TA PO; -PRED-301 PO; -ROSU40TA PO; -TPRSR/100 PO; +cefOXitin 2,000 MG in DEXTROSE 5% 50 ML IV SCH
[2018-11-07] MEDS ORDERED: LABETALOL HCL IV 5 MG/ML 20ML IV PRN (07:31)
[2018-11-07] MEDS ORDERED: HYDROmorphone INJ 1 MG/ML SYRINGE IV PRN (07:31)
[2018-11-07] MEDS ORDERED: PHENYLEPHRINE 100MCG/ML 5ML SYR IV PRN (07:31)
[2018-11-07] MEDS ORDERED: ATROPINE SULFATE 0.1 MG/ML 10ML SYR IV PRN (07:31)
[2018-11-07] MEDS ORDERED: fentaNYL citrate 100 MCG/2 ML VIAL IV PRN (07:31)
[2018-11-07] MEDS ORDERED: ePHEDrine sulfate 50 MG/ML AMP IV PRN (07:31)
[2018-11-07] MEDS ORDERED: MEPERIDINE HCL 25 MG/ML CARP IV PRN (07:31)
[2018-11-07] MEDS ORDERED: ONDANSETRON INJ 2 MG/ML 2 ML VIAL IV PRN (07:31)
--- NOTE | 2018-11-07 08:39 | History & Physical Bridge Note ---
Date of Service November 07, 2018 History & Physical Bridge Note I have examined the patient, reviewed the History & Physical and in the interval since the performance of the History & Physical I have noted the following changes of clinical significance: no changes noted
[2018-11-07] MEDS ORDERED: SUCCINYLCHOLINE CHLORIDE 20 MG/ML 10 ML VIAL ONE (08:45)
[2018-11-07] MEDS ORDERED: MIDAZOLAM HCL 1 MG/ML 2ML VIAL ONE (08:45)
[2018-11-07] MEDS ORDERED: GLYCOPYRROLATE 0.2 MG/ML VIAL ONE (08:45)
[2018-11-07] MEDS ORDERED: ONDANSETRON INJ 2 MG/ML 2 ML VIAL ONE (08:45)
[2018-11-07] MEDS ORDERED: NEOSTIGMINE METHYLSULFATE 5 MG/5 ML SYR ONE (08:45)
[2018-11-07] MEDS ORDERED: LIDOCAINE HCL 2% 2 ML VIAL/AMP(20MG/ML) INFIL ONE (08:45)
[2018-11-07] MEDS ORDERED: DEXAMETHASONE SOD INJ 4 MG/ML VIAL ONE (08:45)
[2018-11-07] MEDS ORDERED: PROPOFOL IV EMULSION 10 MG/ML 20 ML VIAL IV ONE (08:45)
[2018-11-07] MEDS ORDERED: fentaNYL citrate 100 MCG/2 ML VIAL ONE ×2 (08:45)
[2018-11-07] MEDS ORDERED: PHENYLEPHRINE HCL 10 MG/ML VIAL ONE (08:45)
[2018-11-07] MEDS ORDERED: ePHEDrine sulfate 50 MG/ML AMP ONE (08:45)
[2018-11-07] MEDS ORDERED: BUPIVACAINE LIPOSOME 1.3% 266 MG/20 ML VIAL ONE (08:50)
[2018-11-07] MEDS ORDERED: BUPIVACAINE 0.5 % 5 MG/1 ML MPF 30ML VIAL ONE (08:50)
[2018-11-07] MEDS ORDERED: HYDROCORTISONE SOD SUCCINATE 100 MG/2 ML VIAL ONE (09:47)
[2018-11-07] MEDS ORDERED: PHENYLEPHRINE 100MCG/ML 5ML SYR ONE (09:48)
[2018-11-07] MEDS ORDERED: HYDROmorphone INJ 2 MG/ML SYR/VIAL ONE (10:17)
[2018-11-07] MEDS ORDERED: ROCURONIUM BROMIDE 10 MG/ML 5 ML VIAL ONE (10:50)
[2018-11-07] MEDS ORDERED: CISATRACURIUM BESYLATE IV SOLN 2 MG/ML 10 ML VIAL IV ONE (10:50)
--- NOTE | 2018-11-07 11:50 | Post Operative Brief Note ---
Immediate Post Op Note v1 Date of Surgery November 07, 2018 Pre & Post Diagnosis Operation Date: 11/07/18 08:10 Pre-Op Diagnosis: Recurrent Colon Cancer; Diabetes Post-Op Diagnosis: Recurrent Colon Cancer; Diabetes Procedure Operation Date: 11/07/18 08:10 Actual Procedures p Laparoscopic Assisted Partial Colectomy with ileocolic anastomosis(Not Applicable) - Ruperto Joseph DO, CASS Surgeon Ruperto Joseph DO, CASS Truck Service Technician Robin Beyer Estimated Blood Loss 25 Findings Consistent with Post-Op Diagnosis Some adhesions near the initial anastomosis. Resection of anastomosis with several centimeters of margin performed, high ligation of involved vessels, ileocolic anastomosis performed with stapler, oversewn with Lembert sutures, mesenteric defect closed with Vicryl. Small enterotomy closed with Lembert silk sutures. Exparel injected. Specimens Ileocolic anastomosis Proximal colon Drains Figueroa Catheter (inserted by Moises ALAMO without difficulty and return of yellow urine ) Anesthesia Type General Complications none Disposition Accompanied Patient To Recovery: No Disposition: Recovery Room
--- NOTE | 2018-11-07 12:27 | Operative Report ---
Post Operative Report Pre & Post Diagnosis Operation Date: 11/07/18 08:10 Pre-Op Diagnosis: Recurrent Colon Cancer; Diabetes Post-Op Diagnosis: Recurrent Colon Cancer; Diabetes Procedure Operation Date: 11/07/18 08:10 Actual Procedures p Laparoscopic Assisted Partial Colectomy with ileocolic anastomosis(Not Applicable) - Ruperto Joseph DO, CASS Surgeon Ruperto Joseph DO, CASS Office Machine Inspector Robin Beyer Estimated Blood Loss 25 Findings Consistent with Post-Op Diagnosis Some adhesions near the initial anastomosis. Resection of anastomosis with several centimeters of margin performed, high ligation of involved vessels, ileocolic anastomosis performed with stapler, oversewn with Lembert sutures, mesenteric defect closed with Vicryl. Small enterotomy closed with Lembert silk sutures. Exparel injected. Specimens Ileocolic anastomosis Proximal: Anesthesia Type General Complications none Disposition Accompanied Patient To Recovery: No Disposition: Recovery Room Indications 83-year-old female with history of colon cancer many years ago status post right hemicolectomy, now with biopsy-proven colon cancer at her anastomotic site. Plan for laparoscopic partial colectomy, possible open. The risks of the procedure were discussed, all questions were answered, and the patient agreed to proceed with surgery as planned. Description of Procedure The patient was properly identified, consented, and taken to the operating room where she was placed in the supine position. General endotracheal anesthesia was induced. SCDs and a safety belt were placed. Preoperative antibiotics were administered. A Figueroa catheter was placed. The patient's abdomen was prepped and draped in the standard sterile fashion. Surgical timeout was performed and all parties were in agreement that this was the correct patient and procedure to be performed and we continued as planned. An incision was made in the left upper quadrant and the Veress needle was inserted. Saline drop test confirmed entry into the peritoneum. The abdomen was insufflated with carbon dioxide which the patient tolerated without incident. The abdomen was then entered using the Optiview technique and a 5 mm trocar. The laparoscope was inserted and no damage from initial trocar or Veress needle placement was noted, no gross abnormalities were noted within the 4 quadrants of the abdomen. 5 mm ports were then placed in the left lower quadrant in the left lateral abdomen. There were no adhesions of the omentum or bowel to the anterior abdominal wall. The liver appeared congested but no evidence of metastatic disease was present. I was able to identify what was felt to be the anastomosis on palpation with the laparoscopic instruments. There was some adhesions of the small bowel and the small bowel mesentery to this area and these were taken down with combination of harmonic scalpel and sharp dissection. During the dissection small enterotomy occurred in part of the small intestine. This was oversewn laparoscopically with 3-0 silk suture. Later it was examined after we opened and oversewn with 3-0 silk Lembert sutures. The omentum was also adhesed to this area and it was difficult to take off of the anastomotic site. At this point we made a midline incision and placed the wound protector to help identify the anastomosis. The anastomosis was palpated and brought into the incision. Some adhesions of the omentum to the anastomosis were taken down with sharp dissection. There were also some small bowel adhesions which were taken down as well. Once we had adequate distance for margins, we then resected the anastomosis with approximately 8 to 9 cm margins on either side. This was performed using PRIYANK stapler. The mesentery was then scored using harmonic scalpel and we were able to perform a high ligation of the mesentery in this area. The proximal colon staple line appeared a little dusky for proximally 1 cm. This portion was resected using another firing the PRIYANK stapler. A [id number] functional end-to-end anastomosis was then performed using PRIYANK stapler. The wound was draped with white towels. The antimesenteric corner of the colon and small bowel were then excised. PRIYANK stapler was placed through the enterotomy and colotomy and used to create the anastomosis. The common enterotomy and staple line were then resected using another firing of the PRIYANK stapler. The anastomotic staple line was then oversewn using 3-0 silk Lembert sutures. The anastomosis palpated and felt widely patent, appeared to have excellent blood flow, and there is no twisting of the mesentery. The mesenteric defect was then closed using a running 2-0 Vicryl suture. The anastomosis was allowed to drop back into the abdomen. At this point we inspected the small bowel and identified the prior enterotomy. At this point we oversewed it with silk Lembert sutures but the initial repair appeared good. The abdomen was irrigated with warm saline. Hemostasis appeared excellent. The periumbilical wound protector was removed and the fascia was closed with a #1 PDS. The wound was irrigated. Exparel mixed with half percent Marcaine was injected in the fascia and midline incision. The incision was then closed with brandon. The remaining port sites were closed with brandon. Sterile dressings were placed. The patient was extubated in the operating room and taken to the PACU where she recovered without apparent incident. All sponge, instrument, and needle counts were correct. The patient tolerated the procedure well. The colon specimen was sent to Pathology. Mr. Beyer, the physician's physician's assistant was present and scrubbed for the entire to the case. He was critical in positioning the patient, prepping and draping, retraction and exposure, driving the laparoscope, resection of the colon and creation of the anastomosis, closure of the incisions, and placement of the dressings. I attest to the content of the Intraoperative Record and any orders documented therein. Any exceptions are noted below.
--- NOTE | 2018-11-07 12:49 | Anesthesiology Progress Note ---
Date of Service November 07, 2018 Anesthesia Post Procedure Vital Signs Vital Signs: Temp Pulse Pulse Resp BP BP Pulse Ox 11/07/18 12:40 81 13 134/59 L 95 11/07/18 12:35 79 13 95 11/07/18 12:30 81 16 137/73 96 11/07/18 12:25 84 15 152/73 H 94 11/07/18 12:21 83 16 137/64 95 11/07/18 12:20 87 15 94 11/07/18 12:15 14 156/65 H 94 11/07/18 12:14 88 17 157/70 H 94 11/07/18 12:13 37.7 C H 83 18 156/65 H 94 11/07/18 07:17 37 C 90 18 125/69 96 Pain Intensity Abdomen: Pain Intensity: 0 Transfer of Care Handoff Completed per policy Notes Mental Status: alert / awake / arousable Patient Amnestic to Procedure: Yes Nausea / Vomiting: adequately controlled Pain: adequately controlled Airway Patency, RR, SpO2: stable & adequate BP & HR: stable & adequate Hydration State: stable & adequate Anesthetic Complications: no major complications apparent and Pt Satisfied with anesthetic care Notes: The patient is awake and stable in PACU.
[2018-11-07] MEDS ORDERED: NITROGLYCERIN SL 0.4 MG/TAB TAB SL PRN (14:39)
[2018-11-07] MEDS ORDERED: ZOLPIDEM TARTRATE 5 MG TAB PO PRN (14:39)
[2018-11-07] MEDS: LACTATED RINGER'S 1,000 ML IV SCH (14:48)
[2018-11-07] MEDS: ONDANSETRON INJ 2 MG/ML 2 ML VIAL IV PRN (15:20)
[2018-11-07] MEDS: MoRPHine SULFATE 4 MG/ML 1 ML CARP\\VIAL IV PRN ×2 (15:20→17:16)
[2018-11-07] MEDS: cefOXitin 2,000 MG in DEXTROSE 5% 50 ML IV SCH ×2 (15:22→21:28)
[2018-11-07] MEDS ORDERED: GLUCAGON FOR INJ 1 MG VIAL SQ PRN (15:28)
[2018-11-07] MEDS ORDERED: METOPROLOL TARTRATE 1 MG/ML VIAL IV PRN (15:28)
[2018-11-07] MEDS ORDERED: CARBOHYDRATES FOR HYPOGLYCEMIA PO PRN (15:28)
[2018-11-07] MEDS ORDERED: GLUCOSE 10 TABS/TUBE PO PRN (15:28)
[2018-11-07] MEDS ORDERED: DEXTROSE 50% 50 ML SYRINGE IV PRN (15:28)
[2018-11-07] MEDS ORDERED: GLUCOSE 40% GEL 15 GM TUBE PO PRN (15:28)
--- NOTE | 2018-11-07 15:55 | Consultation ---
Date of Consultation November 07, 2018 Assessment & Plan (1) Recurrent adenocarcinoma of colorectal region: - S/P hemicolectomy (2007) and now S/P partial colectomy on 11/07 - Pain management, IVF, DVT prophylaxis, Surgical management per primary - Currently NPO with sips/chips - diet advancement per surgical team Present on Admission?: Yes (2) Diabetes: - A1c 7.6 - Hold home regimen - given NPO status will use SSI and will adjust pending diet advancement and BSG readings - If evidence of hypoglycemia or trending down of glucose readings may need to had D5 to fluids Present on Admission?: Yes (3) CAD (coronary artery disease): - CAD S/P CABG x 3 and AVR with Bioprosthetic (2015) - [place] [facility] [place] had pre-operative assessment/clearance - Will hold oral medications at this time due to NGT placement and cover with Lopressor PRN for tachycardia/rebound at least overnight - Pending evaluation tomorrow may add oral medications back on board - Isosorbide 30 mg daily, Losartan 25 mg daily, Toprol XL 100 mg daily, Rosuvastatin 40 mg daily -- Plavix 75 mg daily help pre-operatively and resumption per clearance from surgical team Present on Admission?: Yes (4) Hypertension: - Lopressor IV PRN; medications as above - BP currently stable and will monitor (5) Obstructive sleep apnea of adult: - Normally utilizes CPAP at home - did advise she could have family bring hers from home vs hospital set-up she opted to hold on hospital set-up - Could use supplemental O2 as necessary overnight (6) PMR (polymyalgia rheumatica): - Normally on Prednisone 5 mg daily - will hold for now - may need to clamp NGT for medication - If she would have lower blood pressure should consider stress dosing steroids - could simply do Prednisone 20 mg x 3 days then back to home dosing (7) History of CVA (cerebrovascular accident): - Noted - this occurred post-operatively from AVR (8) DVT prophylaxis: - [facility] Hospitalist team will continue to follow. Supervising Physician Co-Signing Physician Notes Attending note: patient seen and examined with Alyx Kim PA-C. I agree with her HPI, history, exam, ROS and A/P. I personally reviewed the labs and imaging findings. Patient doing well after surgery, has pain, rates it at about an 8 out of 10, says it hurts to take a deep breath. No chest pain or pressure post operatively. Patient known to me from prior admission, has severe CAD with h/o CABG. It has been stable for years, she used to have frequent admissions for chest pain and anxiety. - DM: hold oral agents, use Novolog SS for time being, not eating, monitor for hypoglycemia - CAD s/p CABG: no chest pain after surgery, recommend resuming antiplatelets once okay with general surgery will use Lopressor 5mg IV PRN likely resume all oral medications tomorrow if vitals will allow for full details see the full consult History of Present Illness Ms. Ponce is an 83 y/o female with PMHx of CAD S/P CABG x 3, Bioprosthetic AV (2015), CVA (Post-Op AVR), HTN, HLD, T2DM, LALA on CPAP, PAD, and Recurrent Adenocarcinoma of Colon S/P Hemicolectomy (2007) and now S/P partial colectomy with ileocolic anastomosis on 11/07. Patient reports some abdominal pain and some guarding post-operatively. She currently denies any nausea or vomiting and has an NGT placed. She was evaluated by her PCP and contractor general engineering prior to surgical intervention. She reports no difficulty chest pain or SEGOVIA with ambulation prior to surgery. She denies H/O DVT/PE. Currently vitals stable without indication for stress dosed steroids. Attending Physician: Ruperto Joseph, DO, FACS Allergies Allergy/AdvReac Type Severity Reaction Status Date / Time azithromycin AdvReac Intermediate Diarrhea Verified 11/07/18 07:12 cefadroxil AdvReac Intermediate Diarrhea Verified 11/07/18 07:12 clindamycin AdvReac Intermediate Diarrhea Verified 11/07/18 07:12 doxycycline AdvReac Intermediate Diarrhea Verified 11/07/18 07:12 levofloxacin AdvReac Intermediate Diarrhea Verified 11/07/18 07:12 metronidazole AdvReac Intermediate Diarrhea Verified 11/07/18 07:12 sulfamethoxazole AdvReac Intermediate Diarrhea Verified 11/07/18 07:12 [From Bactrim] trimethoprim [From Bactrim] AdvReac Intermediate Diarrhea Verified 11/07/18 07:12 amoxicillin AdvReac Mild diarrhea Verified 11/07/18 07:12 clavulanic acid AdvReac Mild diarrhea Verified 11/07/18 07:12 metformin AdvReac Mild Diarrhea Verified 11/07/18 07:12 sitagliptin AdvReac Mild diarreha Verified 11/07/18 07:12 Home Medications Home Medications Medication Instructions Recorded Confirmed Type Calcium 600 + D(3) 1 tab PO BID 02/15/18 11/07/18 History Novolog Flexpen U-100 Insulin 5 unit SUBCUT 1700 02/15/18 11/07/18 History Tresiba FlexTouch U-100 15 unit SUBCUT HS 02/15/18 11/07/18 History acetaminophen [Tylenol Extra 1,000 mg PO TID PRN 02/15/18 11/07/18 History Strength] cholecalciferol (vitamin D3) 2,000 unit PO BID 02/15/18 11/07/18 History [Vitamin D3] clopidogrel [Plavix] 75 mg PO HS 02/15/18 11/07/18 History diclofenac sodium [Voltaren] 2 g TOPICAL QID PRN 02/15/18 11/07/18 History duloxetine [Cymbalta] 30 mg PO 1200 02/15/18 11/07/18 History gabapentin 100 mg PO TID 02/15/18 11/07/18 History isosorbide mononitrate 30 mg PO QAM 02/15/18 11/07/18 History losartan 25 mg PO QAM 02/15/18 11/07/18 History metoprolol succinate [Toprol XL] 100 mg PO QPM 02/15/18 11/07/18 History nitroglycerin [Nitrostat] 0.4 mg SUBLINGUAL DIRECTED PRN 02/15/18 11/07/18 History prednisone 5 mg PO QAM 02/15/18 11/07/18 History rosuvastatin [Crestor] 40 mg PO QPM 02/15/18 11/07/18 History zolpidem [Ambien] 5 mg PO HS PRN 02/15/18 11/07/18 History loratadine 10 mg PO DAILY PRN 10/12/18 11/07/18 History triamcinolone acetonide [Nasacort] 1 spray INTRANASAL DAILY PRN 10/12/18 11/07/18 History pantoprazole [Protonix] 40 mg PO DAILY 11/07/18 11/07/18 History Patient History Medical History CAD (coronary artery disease) Severe, s/p CABG x 3 with AVR 03/2016, complicated by post-op CVA. Hypertension (Chronic) GERD (gastroesophageal reflux disease) Obstructive sleep apnea of adult cpap PMR (polymyalgia rheumatica) Prednisone daily Anxiety (Acute) Orthostatic hypotension (Acute) H/O malignant neoplasm of colon (Chronic) 2006--sx--"took 17 inches of colon, took appendix, took ovaries/fallopian tubes at same time" H/O: CVA (cerebrovascular accident) (Chronic) After CABG/AVR, 2016; residual weakness on right side. 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) Hearing deficit Kidney stones Osteoarthritis Peptic ulcer (02/05/11) Spinal stenosis Surgical History History of aortic valve replacement 03/18/2016 @ [facility] [place] History of bilateral cataract extraction History of bilateral tubal ligation History of cholecystectomy History of colectomy 2007 History of colonoscopy History of dilatation and curettage History of esophagogastroduodenoscopy (EGD) History of foot surgery right foot--no hardware in place History of open reduction and internal fixation (ORIF) procedure right hip hardware in place History of tonsillectomy and adenoidectomy History of tooth extraction partial upper denture S/P CABG x 3 2015 @ [facility] [place] Status post incision and drainage sebaceous cyst Family History Brother Family history of diabetes mellitus Grandfather (Maternal) Family history of diabetes mellitus Grandmother (Maternal) Family hx of colon cancer Other No family history of adverse response to anesthesia Social History Preferred Language: Salvadorean Communication Ability: Effective Beliefs That Will Affect Care: None Current Living Situation: Spouse Feels Safe at Home: Yes Smoking Status: Never smoker Cigarettes Per Day: 0 Second Hand Exposure: Yes ( smoked) Hx Alcohol Use: No Hx Substance Use: No Review of Systems Constitutional: no fever and no chills Eyes: no worsening vision Ear, Nose, Mouth, Throat: + dry mouth; no sore throat and no dysphagia Respiratory: no cough and no dyspnea Cardiovascular: no chest pain, no palpitations, no lightheadedness and no edema Gastrointestinal: + abdominal pain; no nausea, no vomiting, no constipation and no diarrhea/loose stools Genitourinary: no dysuria Musculoskeletal: no body aches Integumentary: no rash Neurologic: no tingling and no numbness Physical Exam Constitutional: WD/WN, vitals as above no acute distress and not ill appearing Eyes: + anicteric sclerae ENMT: Ears: no hearing impairment NGT placed draining minimal green contents Neck: normal visual inspection and trachea midline Respiratory: normal respiratory effort, lungs clear to auscultation Cardiovascular: Rate/Rhythm: regular rate and regular rhythm Heart Sounds: no murmur Gastrointestinal (Abdomen): Inspection/Auscultation: + abnormal bowel sounds Percussion/Palpation: + abdomen tender and + guarding; abdomen not rigid midline abdominal dressing C/D/I - did not remove dressing Musculoskeletal: Head/Neck/Chest: normocephalic and head atraumatic Extremities: no cyanosis and no clubbing Skin: no rashes, warm and dry Neurologic: moves all extremities Psychiatric: A+Ox3, euthymic affect Results & Data Vital Signs (Past 12 Hours) Vital Signs Temp Pulse Pulse Resp BP BP Pulse Ox 11/07/18 14:22 81 11/07/18 14:03 37.1 C 79 21 118/71 93 11/07/18 14:02 80 11/07/18 13:45 81 16 112/56 L 11/07/18 13:40 82 23 118/57 L 11/07/18 13:35 80 17 127/58 L 92 11/07/18 13:30 85 14 117/58 L 11/07/18 13:25 86 17 117/60 92 11/07/18 13:20 83 16 115/60 92 11/07/18 13:15 79 21 128/56 L 11/07/18 13:10 78 13 133/59 L 93 11/07/18 13:06 37.6 C H 93 11/07/18 13:05 81 15 135/67 93 11/07/18 13:00 79 13 92 11/07/18 12:55 87 16 134/67 91 11/07/18 12:50 84 13 142/64 H 93 11/07/18 12:45 85 14 128/60 94 11/07/18 12:40 81 13 134/59 L 95 11/07/18 12:35 79 13 95 11/07/18 12:30 81 16 137/73 96 11/07/18 12:25 84 15 152/73 H 94 11/07/18 12:21 83 16 137/64 95 11/07/18 12:20 87 15 94 11/07/18 12:15 14 156/65 H 94 11/07/18 12:14 88 17 157/70 H 94 11/07/18 12:13 37.7 C H 83 18 156/65 H 94 11/07/18 07:17 37 C 90 18 125/69 96
[2018-11-07] MEDS ORDERED: INSULIN ASPART 100 UNITS/ML 3 ML PEN SC SCH (16:30)
[2018-11-07] MEDS: DULOXETINE HCL 30 MG CAP PO SCH (17:08)
[2018-11-07] MEDS: GABAPENTIN 100 MG CAP PO SCH (17:08)
[2018-11-07] MEDS: INSULIN ASPART 100 UNITS/ML 3 ML PEN SC SCH (18:32)
[2018-11-07] MEDS ORDERED: ETOMIDATE 2 MG/ML 20 ML VIAL IV ONE (19:12)
[2018-11-07] MEDS ORDERED: fentaNYL citrate 100 MCG/2 ML VIAL IV ONE (19:12)
[2018-11-07] MEDS ORDERED: VECURONIUM BROMIDE 10 MG VIAL IV ONE (19:12)
[2018-11-07] MEDS: ACETAMINOPHEN 1,000 MG/100 ML VIAL IV PRN (20:04)
[2018-11-08] MEDS: INSULIN ASPART 100 UNITS/ML 3 ML PEN SC SCH ×5 (00:01→20:51)
[2018-11-08] MEDS: LACTATED RINGER'S 1,000 ML IV SCH ×3 (00:02→21:17)
[2018-11-08] MEDS: cefOXitin 2,000 MG in DEXTROSE 5% 50 ML IV SCH ×2 (04:03→09:32)
[2018-11-08] MEDS: ACETAMINOPHEN 1,000 MG/100 ML VIAL IV PRN ×3 (04:14→17:41)
[2018-11-08 07:04] LABS: Basophils # (auto) 0.01 K/uL (0-0.2); Basophils % (auto) 0.1 %; Eosinophils # (auto) 0.01 K/uL (0-0.5); Eosinophils % (auto) 0.1 %; Hemoglobin 11.3 g/dL (12.0-16.0); Immature Granulocytes # (auto) 0.02 K/uL (0.00-0.02); Immature Granulocytes % (auto) 0.3 %; Lymphocytes # (auto) 1.39 K/uL (1.2-3.4); Lymphocytes % (auto) 17.5 %; Mean Corpuscular Hgb Conc 32.3 g/dL (32-36); Mean Corpuscular Volume 92.8 fL (80-100); Mean Platelet Volume 10.2 fL (7.4-10.4); Monocytes # (auto) 1.14 K/uL (0.11-0.59); Monocytes % (auto) 14.4 %; Neutrophils # (auto) 5.36 K/uL (1.4-6.5); Neutrophils % (auto) 67.6 %; Platelet Count 142 K/uL (130-400); RDW Coefficient of Variation 15.5 % (11.5-14.5); RDW Standard Deviation 52.7 fL (36.4-46.3); Red Blood Count 3.77 M/uL (4.2-5.4); White Blood Count 7.93 K/uL (4.8-10.8)
[2018-11-08 07:33] LABS: BUN Creatinine Ratio 9.3 (10-20); Calcium 8.6 mg/dl (8.5-10.1); Creatinine Clr Calc Pharmacy 53.1 ml/min; Est GFR (Non-African American) 59.5; Potassium 3.9 mmol/L (3.5-5.1)
[2018-11-08 07:37] LABS: INR 1.2 (0.9-1.1); Partial Thromboplastin Time 26.8 Seconds (21.0-31.0); Prothrombin Time 12.3 Seconds (9.0-12.0)
--- NOTE | 2018-11-08 08:00 | Surgery Progress Note ---
Date of Service November 08, 2018 Assessment & Plan (1) Recurrent adenocarcinoma of colorectal region: POD #1 laparoscopic-assisted partial colectomy with ileocolic anastomosis Discontinue NG tube and Figueroa Clear liquids DVT prophylaxis Ambulate, out of bed to chair, incentive spirometry Complete 24 hours of antibiotics Hold Plavix, possibly start tomorrow Discharge once return of bowel function Present on Admission?: Yes Subjective 83-year-old female. #1 laparoscopic-assisted partial colectomy with ileocolonic anastomosis for recurrent colon cancer at her anastomosis. Overall doing well, some pain overnight treated with IV Tylenol. Denies any nausea. Physical Exam Constitutional: WD/WN, vitals as above Gastrointestinal (Abdomen): Incision with dressing in place, small amount of strikethrough. Abdomen appropriately tender to palpation, no guarding or rebound. Nondistended. Results & Data Vital Signs (Past 12 Hours) Vital Signs Temp Pulse Resp BP Pulse Ox 11/08/18 07:23 36.5 C 88 22 130/73 97 11/08/18 04:19 37.1 C 94 H 20 136/72 93 11/07/18 23:23 37.2 C 97 H 18 120/65 92 Laboratory Results Laboratory Results - last 24 hr 11/07/18 11/07/18 11/07/18 07:28 12:18 17:54 WBC RBC Hgb Hct MCV MCH MCHC RDW Std Deviation RDW Coeff of David Plt Count MPV Immature Gran % (Auto) Neut % (Auto) Lymph % (Auto) [place] % (Auto) Eos % (Auto) Baso % (Auto) Immature Gran # (Auto) Neut # (Auto) Lymph # (Auto) [place] # (Auto) Eos # (Auto) Baso # (Auto) PT INR APTT PTT Ratio Sodium Potassium Chloride Carbon Dioxide Anion Gap BUN Creatinine Est Cr Clr Drug Dosing Est GFR ( Amer) Est GFR (Non-Af Amer) BUN/Creatinine Ratio Glucose POC Glucose 174 H 153 H Calcium Blood Type O Positive Antibody Screen NEGATIVE 11/07/18 11/08/18 11/08/18 23:52 06:12 06:15 WBC 7.93 RBC 3.77 L Hgb 11.3 L Hct 35.0 L MCV 92.8 MCH 30.0 MCHC 32.3 RDW Std Deviation 52.7 H RDW Coeff of David 15.5 H Plt Count 142 MPV 10.2 Immature Gran % (Auto) 0.3 Neut % (Auto) 67.6 Lymph % (Auto) 17.5 [place] % (Auto) 14.4 Eos % (Auto) 0.1 Baso % (Auto) 0.1 Immature Gran # (Auto) 0.02 Neut # (Auto) 5.36 Lymph # (Auto) 1.39 [place] # (Auto) 1.14 H Eos # (Auto) 0.01 Baso # (Auto) 0.01 PT INR APTT PTT Ratio Sodium Potassium Chloride Carbon Dioxide Anion Gap BUN Creatinine Est Cr Clr Drug Dosing Est GFR ( Amer) Est GFR (Non-Af Amer) BUN/Creatinine Ratio Glucose POC Glucose 166 H 126 H Calcium Blood Type Antibody Screen 11/08/18 11/08/18 06:15 06:59 WBC RBC Hgb Hct MCV MCH MCHC RDW Std Deviation RDW Coeff of David Plt Count MPV Immature Gran % (Auto) Neut % (Auto) Lymph % (Auto) [place] % (Auto) Eos % (Auto) Baso % (Auto) Immature Gran # (Auto) Neut # (Auto) Lymph # (Auto) [place] # (Auto) Eos # (Auto) Baso # (Auto) PT 12.3 H INR 1.2 H APTT 26.8 PTT Ratio 1.0 Sodium 139 Potassium 3.9 Chloride 107 Carbon Dioxide 29 Anion Gap 3.0 BUN 8 Creatinine 0.90 Est Cr Clr Drug Dosing 53.1 Est GFR ( Amer) 69.0 Est GFR (Non-Af Amer) 59.5 BUN/Creatinine Ratio 9.3 L Glucose 127 H POC Glucose Calcium 8.6 Blood Type Antibody Screen
[2018-11-08] MEDS ORDERED: FAMOTIDINE 20 MG in SYRINGE 3 ML IV SCH (09:00)
[2018-11-08] MEDS: ENOXAPARIN INJ 30 MG/0.3 ML SYR SQ SCH (09:32)
--- NOTE | 2018-11-08 10:27 | Anesthesiology Progress Note ---
Date of Service November 08, 2018 Anesthesia Post Procedure Vital Signs Vital Signs: Temp Pulse Pulse Pulse Pulse Resp BP 11/08/18 07:23 36.5 C 88 22 11/08/18 04:19 37.1 C 94 H 20 11/07/18 23:23 37.2 C 97 H 18 11/07/18 19:37 37.5 C 100 H 18 11/07/18 17:09 91 H 18 11/07/18 16:09 90 11/07/18 16:00 98 H 11/07/18 15:09 85 18 11/07/18 14:22 81 11/07/18 14:03 37.1 C 79 21 11/07/18 14:02 80 11/07/18 13:45 81 16 112/56 L 11/07/18 13:40 82 23 118/57 L 11/07/18 13:35 80 17 127/58 L 11/07/18 13:30 85 14 117/58 L 11/07/18 13:25 86 17 117/60 11/07/18 13:20 83 16 115/60 11/07/18 13:15 79 21 128/56 L 11/07/18 13:10 78 13 133/59 L 11/07/18 13:06 37.6 C H 11/07/18 13:05 81 15 135/67 11/07/18 13:00 79 13 11/07/18 12:55 87 16 134/67 11/07/18 12:50 84 13 142/64 H 11/07/18 12:45 85 14 128/60 11/07/18 12:40 81 13 134/59 L 11/07/18 12:35 79 13 11/07/18 12:30 81 16 137/73 11/07/18 12:25 84 15 152/73 H 11/07/18 12:21 83 16 137/64 11/07/18 12:20 87 15 11/07/18 12:15 14 156/65 H 11/07/18 12:14 88 17 157/70 H 11/07/18 12:13 37.7 C H 83 18 BP Pulse Ox 11/08/18 07:23 130/73 97 11/08/18 04:19 136/72 93 11/07/18 23:23 120/65 92 11/07/18 19:37 111/62 93 11/07/18 17:09 112/63 92 11/07/18 16:09 111/66 93 11/07/18 16:00 11/07/18 15:09 115/67 95 11/07/18 14:22 11/07/18 14:03 118/71 93 11/07/18 14:02 11/07/18 13:45 93 11/07/18 13:40 92 11/07/18 13:35 92 11/07/18 13:30 93 11/07/18 13:25 92 11/07/18 13:20 92 11/07/18 13:15 93 11/07/18 13:10 93 11/07/18 13:06 93 11/07/18 13:05 93 11/07/18 13:00 92 11/07/18 12:55 91 11/07/18 12:50 93 11/07/18 12:45 94 11/07/18 12:40 95 11/07/18 12:35 95 11/07/18 12:30 96 11/07/18 12:25 94 11/07/18 12:21 95 11/07/18 12:20 94 11/07/18 12:15 94 11/07/18 12:14 94 11/07/18 12:13 156/65 H 94 Pain Intensity Abdomen: Pain Intensity: 2 Notes Mental Status: alert / awake / arousable and participated in evaluation Patient Amnestic to Procedure: Yes Nausea / Vomiting: adequately controlled Pain: adequately controlled Airway Patency, RR, SpO2: stable & adequate BP & HR: stable & adequate Hydration State: stable & adequate Anesthetic Complications: no major complications apparent
--- NOTE | 2018-11-08 13:11 | Hospitalist Progress Note ---
Date of Service November 08, 2018 Assessment & Plan (1) Recurrent adenocarcinoma of colorectal region: - S/P hemicolectomy (2007) and now S/P partial colectomy on 11/07 - Pain management, IVF, DVT prophylaxis, Surgical management per primary - Tolerating diet - further diet advancement per surgical team (2) Diabetes: - A1c 7.6 - Hold home regimen - cover with SSI (3) CAD (coronary artery disease): - CAD S/P CABG x 3 and AVR with Bioprosthetic (2015) - [place] [facility] [place] had pre-operative assessment/clearance - Isosorbide 30 mg daily, Losartan 25 mg daily, Toprol XL 100 mg daily, Rosuvastatin 40 mg daily -- Plavix 75 mg daily held pre-operatively and resumption per clearance from surgical team (4) Hypertension: - Medications as above - BP currently stable and will monitor (5) Obstructive sleep apnea of adult: - Normally utilizes CPAP at home - did advise she could have family bring hers from home vs hospital set-up she opted to hold on hospital set-up - Could use supplemental O2 as necessary overnight (6) PMR (polymyalgia rheumatica): - Normally on Prednisone 5 mg daily - will hold for now - likely can resume tomorrow - If she would have lower blood pressure should consider stress dosing steroids - could simply do Prednisone 20 mg x 3 days then back to home dosing (7) History of CVA (cerebrovascular accident): - Noted - this occurred post-operatively from AVR (8) DVT prophylaxis: - [facility] Hospitalist team will continue to follow. Subjective Reports doing well. Pain is better today then yesterday and feels and looks comfortable. Tolerated a clear liquid diet this morning without increasing pain or N/V. NGT is removed. Remains NSR on monitor. Review of Systems Constitutional: no fever and no chills Ear, Nose, Mouth, Throat: + dry mouth; no sore throat and no dysphagia Respiratory: no cough and no dyspnea Cardiovascular: no chest pain, no palpitations and no edema Gastrointestinal: + abdominal pain; no nausea, no vomiting, no constipation and no diarrhea/loose stools Genitourinary: no dysuria Musculoskeletal: no body aches Integumentary: no rash Neurologic: no tingling and no numbness Physical Exam Constitutional: WD/WN, vitals as above no acute distress and not ill appearing Eyes: + anicteric sclerae ENMT: Ears: no hearing impairment Neck: normal visual inspection and trachea midline Respiratory: normal respiratory effort, lungs clear to auscultation Cardiovascular: Rate/Rhythm: regular rate and regular rhythm Heart Sounds: no murmur Gastrointestinal (Abdomen): Inspection/Auscultation: + abnormal bowel sounds (present but slightly hypoactive) Percussion/Palpation: + abdomen tender; no guarding and abdomen not rigid Musculoskeletal: Head/Neck/Chest: normocephalic and head atraumatic Extremities: no cyanosis and no clubbing Skin: no rashes, warm and dry Neurologic: moves all extremities Psychiatric: A+Ox3, euthymic affect Results & Data Vital Signs (Past 12 Hours) Vital Signs Temp Pulse Resp BP Pulse Ox 11/08/18 11:18 36.4 C L 94 H 22 134/73 90 11/08/18 07:23 36.5 C 88 22 130/73 97 11/08/18 04:19 37.1 C 94 H 20 136/72 93
[2018-11-08] MEDS: MoRPHine SULFATE 4 MG/ML 1 ML CARP\\VIAL IV PRN ×2 (14:39→17:06)
[2018-11-08] MEDS ORDERED: Nursing to Pharmacy Communication ONE (14:58)
[2018-11-08] MEDS: ROSUVASTATIN CALCIUM 20 MG TAB PO SCH (21:16)
[2018-11-08] MEDS: METOPROLOL SUCC 50MG EXT REL TAB PO SCH (21:16)
[2018-11-08] MEDS: OXYCODONE HCL IR 5 MG TAB (IMMEDIATE RELEASE) PO PRN (23:37)
[2018-11-09] MEDS: ACETAMINOPHEN 1,000 MG/100 ML VIAL IV PRN ×2 (02:32→19:35)
[2018-11-09 06:40] LABS: Basophils # (auto) 0.01 K/uL (0-0.2); Basophils % (auto) 0.1 %; Eosinophils # (auto) 0.08 K/uL (0-0.5); Hematocrit (blood only) 35.6 % (37-47); Hemoglobin 11.3 g/dL (12.0-16.0); Immature Granulocytes # (auto) 0.02 K/uL (0.00-0.02); Immature Granulocytes % (auto) 0.2 %; Lymphocytes # (auto) 1.58 K/uL (1.2-3.4); Lymphocytes % (auto) 19.5 %; Mean Corpuscular Hgb Conc 31.7 g/dL (32-36); Mean Corpuscular Volume 95.2 fL (80-100); Mean Platelet Volume 9.9 fL (7.4-10.4); Monocytes # (auto) 1.02 K/uL (0.11-0.59); Monocytes % (auto) 12.6 %; Neutrophils # (auto) 5.38 K/uL (1.4-6.5); Neutrophils % (auto) 66.6 %; Platelet Count 139 K/uL (130-400); RDW Coefficient of Variation 15.5 % (11.5-14.5); Red Blood Count 3.74 M/uL (4.2-5.4); White Blood Count 8.09 K/uL (4.8-10.8)
[2018-11-09 06:48] LABS: INR 1.2 (0.9-1.1); Prothrombin Time 11.9 Seconds (9.0-12.0)
[2018-11-09 07:14] LABS: BUN Creatinine Ratio 5.7 (10-20); Calcium 8.8 mg/dl (8.5-10.1); Creatinine Clr Calc Pharmacy 58.5 ml/min; Est GFR (African American) 78.4; Est GFR (Non-African American) 67.6; Potassium 3.7 mmol/L (3.5-5.1)
--- NOTE | 2018-11-09 07:51 | Surgery Progress Note ---
Date of Service November 09, 2018 Assessment & Plan (1) Recurrent adenocarcinoma of colorectal region: POD #2 laparoscopic-assisted partial colectomy with ileocolic anastomosis H&H stable UOP 400 cc overnight transfer to floor ambulate Supervising Physician Co-Signing Physician Notes PNT S&E, agree with above. POD#2, reports bm today, tolerating liquids, labs stable. Incision looks good, some echymossis. will advance to fulls, then low fiber as tolerated. Restart plavix, h/l IV. poss d/c over weekend, Dr. Escalante covering. Subjective pain control better, tolerating clears but doesn't like anything cold, some rumbling but no flatus Physical Exam Gastrointestinal (Abdomen): Inspection/Auscultation: + abdominal surgical incision (dressing intact) Results & Data Vital Signs (Past 12 Hours) Vital Signs Temp Pulse Resp BP Pulse Ox 11/09/18 07:10 36.8 C 65 18 136/73 91 11/09/18 02:24 37.3 C 91 H 20 151/76 H 96 11/08/18 23:36 36.8 C 82 20 146/83 H 95
[2018-11-09] MEDS: LACTATED RINGER'S 1,000 ML IV SCH (08:39)
[2018-11-09] MEDS: ISOSORBIDE MONO EXTENDED REL 30 MG TABCR PO SCH (08:41)
[2018-11-09] MEDS: INSULIN ASPART 100 UNITS/ML 3 ML PEN SC SCH ×4 (08:41→21:53)
[2018-11-09] MEDS: ROSUVASTATIN CALCIUM 20 MG TAB PO SCH (08:41)
[2018-11-09] MEDS: LOSARTAN POTASSIUM 25 MG TAB PO SCH (08:42)
[2018-11-09] MEDS: ENOXAPARIN INJ 30 MG/0.3 ML SYR SQ SCH (08:42)
[2018-11-09] MEDS: PANTOprazole 40 MG TAB PO SCH (10:40)
[2018-11-09] MEDS: OXYCODONE HCL IR 5 MG TAB (IMMEDIATE RELEASE) PO PRN (10:59)
[2018-11-09] MEDS: DULOXETINE HCL 30 MG CAP PO SCH (13:38)
[2018-11-09] MEDS: GABAPENTIN 100 MG CAP PO SCH ×2 (14:27→20:51)
[2018-11-09] MEDS: ONDANSETRON INJ 2 MG/ML 2 ML VIAL IV PRN (18:04)
--- NOTE | 2018-11-09 18:18 | Hospitalist Progress Note ---
Date of Service November 09, 2018 Assessment & Plan (1) Recurrent adenocarcinoma of colorectal region: - S/P hemicolectomy (2007) and now S/P partial colectomy on 11/07 - Pain management, IVF, DVT prophylaxis, Surgical management per primary - Tolerating diet - further diet advancement per surgical team (2) Diabetes: - A1c 7.6 - Hold home regimen - cover with SSI (3) CAD (coronary artery disease): - CAD S/P CABG x 3 and AVR with Bioprosthetic (2015) - Follows with [facility] [place] [facility] and had pre-operative assessment/clearance - Isosorbide 30 mg daily, Losartan 25 mg daily, Toprol XL 100 mg daily, Rosuvastatin 40 mg daily -- Plavix 75 mg daily held pre-operatively and resumption per clearance from surgical team (4) Hypertension: - Medications as above - BP currently stable and will monitor (5) Obstructive sleep apnea of adult: - Normally utilizes CPAP at home - did advise she could have family bring hers from home vs hospital set-up she opted to hold on hospital set-up - Could use supplemental O2 as necessary overnight (6) PMR (polymyalgia rheumatica): - Normally on Prednisone 5 mg daily - will hold for now - likely can resume tomorrow - If she would have lower blood pressure should consider stress dosing steroids - could simply do Prednisone 20 mg x 3 days then back to home dosing (7) History of CVA (cerebrovascular accident): - Noted - this occurred post-operatively from AVR (8) DVT prophylaxis: - [facility] Hospitalist team will continue to follow. Subjective Reports pain continues to improve each day. Moved her bowels this morning. T olerating diet. Verbalizes no complaints Review of Systems Constitutional: no fever, no chills and no anorexia Respiratory: no cough and no dyspnea Cardiovascular: no chest pain and no palpitations Gastrointestinal: + abdominal pain (improving); no nausea, no vomiting, no constipation and no diarrhea/loose stools Genitourinary: no dysuria Integumentary: no rash Physical Exam Constitutional: WD/WN, vitals as above no acute distress and not ill appearing Eyes: + anicteric sclerae ENMT: Ears: no hearing impairment Neck: normal visual inspection and trachea midline Respiratory: normal respiratory effort, lungs clear to auscultation Cardiovascular: Rate/Rhythm: regular rate and regular rhythm Heart Sounds: no murmur Gastrointestinal (Abdomen): Inspection/Auscultation: + abnormal bowel sounds (present but slightly hypoactive) Percussion/Palpation: + abdomen tender; no guarding and abdomen not rigid Musculoskeletal: Head/Neck/Chest: normocephalic and head atraumatic Extremities: no cyanosis and no clubbing Skin: no rashes, warm and dry Neurologic: moves all extremities Psychiatric: A+Ox3, euthymic affect Results & Data Vital Signs (Past 12 Hours) Vital Signs Temp Pulse Resp BP BP Pulse Ox 11/09/18 15:24 37.1 C 78 16 116/66 91 11/09/18 11:15 36.9 C 67 16 117/68 94 11/09/18 10:45 36.6 C 73 18 110/62 94 11/09/18 07:10 36.8 C 65 18 136/73 91
[2018-11-09] MEDS ORDERED: PROMETHAZINE HCL 12.5 MG in SODIUM CHLORIDE 0.9% 50 ML IV PRN (18:36)
[2018-11-09] MEDS: METOPROLOL SUCC 50MG EXT REL TAB PO SCH (20:52)
[2018-11-10] MEDS: MoRPHine SULFATE 4 MG/ML 1 ML CARP\\VIAL IV PRN ×3 (01:15→18:17)
[2018-11-10 07:34] LABS: Basophils # (auto) 0.01 K/uL (0-0.2); Basophils % (auto) 0.1 %; Eosinophils # (auto) 0.05 K/uL (0-0.5); Eosinophils % (auto) 0.5 %; Hematocrit (blood only) 37.2 % (37-47); Immature Granulocytes # (auto) 0.03 K/uL (0.00-0.02); Immature Granulocytes % (auto) 0.3 %; Lymphocytes # (auto) 1.38 K/uL (1.2-3.4); Lymphocytes % (auto) 15.1 %; Mean Corpuscular Hgb Conc 32.3 g/dL (32-36); Mean Corpuscular Volume 93.9 fL (80-100); Mean Platelet Volume 10.4 fL (7.4-10.4); Monocytes # (auto) 1.05 K/uL (0.11-0.59); Monocytes % (auto) 11.5 %; Neutrophils # (auto) 6.63 K/uL (1.4-6.5); Neutrophils % (auto) 72.5 %; Platelet Count 154 K/uL (130-400); RDW Coefficient of Variation 15.2 % (11.5-14.5); RDW Standard Deviation 52.4 fL (36.4-46.3); Red Blood Count 3.96 M/uL (4.2-5.4); White Blood Count 9.15 K/uL (4.8-10.8)
--- NOTE | 2018-11-10 07:41 | Surgery Progress Note ---
Date of Service November 10, 2018 Assessment & Plan (1) Recurrent adenocarcinoma of colorectal region: Will begin LR at 50cc/hr till eating better Added phenergan Ambulate Continue fulls Present on Admission?: Yes Subjective 83-year-old female. PO day#3 laparoscopic-assisted partial colectomy with ileocolonic anastomosis for recurrent colon cancer. Has had some nausea overnight with little PO intake. Pain relatively well controlled. No BM yet. Passing flatus. Review of Systems Constitutional: no fever and no chills Respiratory: no problem reported Cardiovascular: no chest pain and no dyspnea Gastrointestinal: + abdominal pain (Incisional) and + nausea; no vomiting Physical Exam Constitutional: WD/WN, vitals as above not ill appearing Respiratory: normal respiratory effort, lungs clear to auscultation Cardiovascular: RRR, no murmur, no edema Gastrointestinal (Abdomen): Inspection/Auscultation: abdomen normal to inspection, normal bowel sounds and + abdominal surgical scar (clean and dry); abdomen not distended Percussion/Palpation: + abdomen tender (mild) and abdomen soft Skin: no rashes, warm and dry Results & Data Vital Signs (Past 12 Hours) Vital Signs Temp Pulse Pulse Resp BP Pulse Ox 11/09/18 23:08 37.2 C 77 14 96/56 L 95 11/09/18 20:50 94 11/09/18 20:49 85 L 11/09/18 20:47 104 H 109/66 11/09/18 19:46 36.9 C 90 18 100/62 92
[2018-11-10] MEDS: ONDANSETRON INJ 2 MG/ML 2 ML VIAL IV PRN ×2 (07:43→18:17)
[2018-11-10] MEDS: LACTATED RINGER'S 1,000 ML IV SCH ×2 (07:55→20:54)
[2018-11-10 08:13] LABS: BUN Creatinine Ratio 10.1 (10-20); Calcium 9.1 mg/dl (8.5-10.1); Creatinine Clr Calc Pharmacy 55.7 ml/min; Est GFR (Non-African American) 63.8; Potassium 3.7 mmol/L (3.5-5.1)
[2018-11-10] MEDS: ENOXAPARIN INJ 30 MG/0.3 ML SYR SQ SCH (09:07)
[2018-11-10] MEDS: LOSARTAN POTASSIUM 25 MG TAB PO SCH (09:07)
[2018-11-10] MEDS: ISOSORBIDE MONO EXTENDED REL 30 MG TABCR PO SCH (09:08)
[2018-11-10] MEDS: PANTOprazole 40 MG TAB PO SCH (09:08)
[2018-11-10] MEDS: predniSONE 5 MG TAB PO SCH (09:09)
[2018-11-10] MEDS: INSULIN ASPART 100 UNITS/ML 3 ML PEN SC SCH ×4 (09:10→21:38)
[2018-11-10] MEDS: GABAPENTIN 100 MG CAP PO SCH ×3 (10:02→20:50)
[2018-11-10] MEDS: CLOPIDOGREL BISULFATE 75 MG TAB PO SCH (10:02)
--- NOTE | 2018-11-10 11:33 | Hospitalist Progress Note ---
Date of Service November 10, 2018 Assessment & Plan (1) Recurrent adenocarcinoma of colorectal region: - S/P hemicolectomy (2007) and now S/P partial colectomy on 11/07 - Pain management, IVF, DVT prophylaxis, Surgical management per primary - nauseas - advance diet as tolerated - will increase IVF to 100 mls/hr given patient's dry appearance and lack of po intake - Encourage IS - O2 needs increased to 4L NC, no adventitious breath sounds, may be avoiding deep breaths due to abdominal pain (2) Diabetes: - A1c 7.6 - Hold home regimen - cover with SSI - BSGs controlled (3) CAD (coronary artery disease): - CAD S/P CABG x 3 and AVR with Bioprosthetic (2015) - [place] [facility] [place] [facility] [place] had pre-operative assessment/clearance - Isosorbide 30 mg daily, Losartan 25 mg daily, Toprol XL 100 mg daily, Rosuvastatin 40 mg daily -- Plavix 75 mg daily held pre-operatively and resumption per clearance from surgical team (4) Hypertension: - Medications as above - BP currently stable (5) Obstructive sleep apnea of adult: - Normally utilizes CPAP at home - did advise she could have family bring hers from home vs hospital set-up she opted to hold on hospital set-up - Could use supplemental O2 as necessary overnight (6) PMR (polymyalgia rheumatica): - Normally on Prednisone 5 mg daily - will hold for now - likely can resume tomorrow - No apparent need for stress dosing (7) History of CVA (cerebrovascular accident): - Noted - this occurred post-operatively from AVR (8) DVT prophylaxis: - [facility] Hospitalist team will continue to follow. Subjective Ms. Ponce is painful at her surgical site, nauseas and has quite a dry mouth and lips. She feels generally unwell. Review of Systems Review of Systems: All systems reviewed & are unremarkable except as noted in HPI & below Physical Exam Physical Exam: General: no distress Eyes: normal inspection, PERLL Respiratory: chest non tender, clear to auscultation, normal breath sounds, no respiratory distress, no accessory muscle use Cardiac: regular rate and rhythm, no rub or gallop, no murmur, no edema, no jvd GI/: active bowel sounds, tender abdomen, soft, non distended Extremities: normal range of motion, normal strength, non tender Neuro/Psych: alert and oriented x 3, normal mood and affect Skin: normal color, dry Results & Data Vital Signs (Past 12 Hours) Vital Signs Temp Pulse Resp BP Pulse Ox 11/10/18 07:40 37.4 C 82 18 110/70 93
[2018-11-10] MEDS: DULOXETINE HCL 30 MG CAP PO SCH (13:53)
[2018-11-10] MEDS: ROSUVASTATIN CALCIUM 20 MG TAB PO SCH (20:49)
[2018-11-10] MEDS: METOPROLOL SUCC 50MG EXT REL TAB PO SCH (20:51)
[2018-11-11] MEDS: MoRPHine SULFATE 4 MG/ML 1 ML CARP\\VIAL IV PRN (00:24)
[2018-11-11 06:22] LABS: Basophils # (auto) 0.01 K/uL (0-0.2); Basophils % (auto) 0.2 %; Eosinophils # (auto) 0.04 K/uL (0-0.5); Eosinophils % (auto) 0.7 %; Hematocrit (blood only) 34.6 % (37-47); Hemoglobin 11.3 g/dL (12.0-16.0); Immature Granulocytes # (auto) 0.01 K/uL (0.00-0.02); Immature Granulocytes % (auto) 0.2 %; Lymphocytes # (auto) 1.18 K/uL (1.2-3.4); Lymphocytes % (auto) 20.8 %; Mean Corpuscular Hgb Conc 32.7 g/dL (32-36); Mean Platelet Volume 9.6 fL (7.4-10.4); Monocytes # (auto) 1.38 K/uL (0.11-0.59); Monocytes % (auto) 24.4 %; Neutrophils # (auto) 3.04 K/uL (1.4-6.5); Neutrophils % (auto) 53.7 %; Platelet Count 176 K/uL (130-400); RDW Coefficient of Variation 15.1 % (11.5-14.5); RDW Standard Deviation 51.5 fL (36.4-46.3); Red Blood Count 3.68 M/uL (4.2-5.4); White Blood Count 5.66 K/uL (4.8-10.8)
[2018-11-11] MEDS: LACTATED RINGER'S 1,000 ML IV SCH (06:22)
[2018-11-11] MEDS: OXYCODONE/ACETAMINOPHEN 5mg/325mg TAB PO PRN ×2 (06:26→15:18)
[2018-11-11 06:52] LABS: BUN Creatinine Ratio 12.1 (10-20); Calcium 8.4 mg/dl (8.5-10.1); Creatinine Clr Calc Pharmacy 53.8 ml/min; Est GFR (African American) 70.9; Est GFR (Non-African American) 61.2; Potassium 3.9 mmol/L (3.5-5.1)
--- NOTE | 2018-11-11 09:04 | Surgery Progress Note ---
Date of Service November 11, 2018 Assessment & Plan (1) Recurrent adenocarcinoma of colorectal region: Doing well except po intake Continue IVF Ambulate Advance diet as patient wishes Subjective POD#4 lap assisted colectomy Passing flatus and BMs Still with poor appetite Nothing sounds goog to her, she has issue with no taste and smell No nausea nor vomiting Review of Systems Constitutional: no fever and no chills Respiratory: no dyspnea Cardiovascular: no chest pain Gastrointestinal: no abdominal pain, no bloating, no nausea and no vomiting Musculoskeletal: no back pain Endocrine: no problem reported Physical Exam Constitutional: WD/WN, vitals as above Neck: trachea midline Respiratory: normal respiratory effort, lungs clear to auscultation Cardiovascular: RRR, no murmur, no edema Gastrointestinal (Abdomen): Inspection/Auscultation: abdomen normal to inspection and normal bowel sounds; abdomen not distended Percussion/Palpation: + abdomen tender (mild) Incision clean and dry Skin: no rashes, warm and dry Results & Data Vital Signs (Past 12 Hours) Vital Signs Temp Pulse Resp BP BP Pulse Ox 11/11/18 07:28 36.9 C 86 15 94/58 L 95 11/10/18 23:47 92 11/10/18 23:46 37.7 C H 107 H 18 106/59 L 85 L
[2018-11-11] MEDS: GABAPENTIN 100 MG CAP PO SCH ×3 (09:34→20:58)
[2018-11-11] MEDS: PANTOprazole 40 MG TAB PO SCH (09:34)
--- NOTE | 2018-11-11 09:46 | Hospitalist Progress Note ---
Date of Service November 11, 2018 Assessment & Plan (1) Recurrent adenocarcinoma of colorectal region: - S/P hemicolectomy (2007) and now S/P partial colectomy on 11/07 - Pain management, IVF, DVT prophylaxis, Surgical management per primary - nausea resolved - advance diet as tolerated -continue IVF until taking consistent po, but will reduce rate as she is less dry appearing today, kidney function is stable - Encourage IS - O2 needs decreased to 2L NC today, no adventitious breath sounds, may be avoiding deep breaths due to abdominal pain (2) Diabetes: - A1c 7.6 - Hold home regimen - cover with SSI - BSGs controlled (3) CAD (coronary artery disease): - CAD S/P CABG x 3 and AVR with Bioprosthetic (2015) - Follows with [facility] [place] [facility] and had pre-operative assessment/clearance - Isosorbide 30 mg daily, Losartan 25 mg daily, Toprol XL 100 mg daily, Rosuvastatin 40 mg daily, Clopidegral 75 mg daily (4) Hypertension: - Medications as above - mild hypotension, asymptomatic (5) Obstructive sleep apnea of adult: - Normally utilizes CPAP at home - did advise she could have family bring hers from home vs hospital set-up she opted to hold on hospital set-up - Could use supplemental O2 as necessary overnight (6) PMR (polymyalgia rheumatica): - continue prednisone 5mg (7) History of CVA (cerebrovascular accident): - Noted - this occurred post-operatively from AVR (8) DVT prophylaxis: - [facility] Hospitalist team will continue to follow. Subjective Ms. Ponce feels a bit better today but still feels generally unwell. She is no longer nauseas or vomiting but has little appetite. She has had a number of bowel movements since surgery. Her pain is well controlled Review of Systems Review of Systems: All systems reviewed & are unremarkable except as noted in HPI & below Physical Exam Physical Exam: General: no distress Eyes: normal inspection, PERLL Respiratory: chest non tender, clear to auscultation, normal breath sounds, no respiratory distress, no accessory muscle use Cardiac: regular rate and rhythm, no rub or gallop, no murmur, no edema, no jvd GI/: hypoactive bowel sounds, no abd pain or tenderness, soft, non distended Extremities: normal range of motion, normal strength, non tender Neuro/Psych: alert and oriented x 3, normal mood and affect Skin: normal color, dry Results & Data Vital Signs (Past 12 Hours) Vital Signs Temp Pulse Resp BP BP Pulse Ox 11/11/18 07:28 36.9 C 86 15 94/58 L 95 11/10/18 23:47 92 11/10/18 23:46 37.7 C H 107 H 18 106/59 L 85 L
[2018-11-11] MEDS: CLOPIDOGREL BISULFATE 75 MG TAB PO SCH (10:11)
[2018-11-11] MEDS: predniSONE 5 MG TAB PO SCH (10:11)
[2018-11-11] MEDS: ENOXAPARIN INJ 30 MG/0.3 ML SYR SQ SCH (10:12)
[2018-11-11] MEDS: LOSARTAN POTASSIUM 25 MG TAB PO SCH (10:12)
[2018-11-11] MEDS: ISOSORBIDE MONO EXTENDED REL 30 MG TABCR PO SCH (10:12)
[2018-11-11] MEDS: INSULIN ASPART 100 UNITS/ML 3 ML PEN SC SCH ×4 (10:14→21:56)
[2018-11-11] MEDS: DULOXETINE HCL 30 MG CAP PO SCH (13:04)
--- NOTE | 2018-11-11 17:30 | XRay Report ---
TWO VIEW CHEST CLINICAL HISTORY: Abnormal physical examination. Coarse breath sounds. FINDINGS: AP and lateral chest radiographs are compared to study dated 02/16/2018 and correlated with c hest CT dated 10/08/2018. The patient is status post midline sternotomy and aortic valve surgery. The heart is enlarged and there is atherosclerotic calcification of the thoracic aorta. There is prominen ce of the pulmonary vasculature. There is bibasilar atelectasis. No airspace consolidation or pleural effusion is identified. Mild chronic elevation of the right hemidiaphragm is similar to previous. Th ere is no pneumothorax. The skeletal structures are osteopenic. The bony thorax appears intact. Kimberley cystectomy clips are seen in the right upper quadrant. IMPRESSION: 1. Cardiomegaly with prominence of the central pulmonary vessels. Correlate clinically for evidence o f mild congestive failure. 2. No airspace consolidation or pleural effusion is identified. Electronically signed by: Efren Taylor M.D. 11/11/2018 5:29 PM
[2018-11-11] MEDS ORDERED: FUROSEMIDE 20 MG in SYRINGE 0 ML IV ONE (17:45)
[2018-11-11] MEDS: METOPROLOL SUCC 50MG EXT REL TAB PO SCH (21:01)
[2018-11-11] MEDS: ROSUVASTATIN CALCIUM 20 MG TAB PO SCH (21:01)
[2018-11-12] MEDS: OXYCODONE/ACETAMINOPHEN 5mg/325mg TAB PO PRN (07:53)
[2018-11-12] MEDS: ONDANSETRON INJ 2 MG/ML 2 ML VIAL IV PRN ×2 (07:54→19:14)
[2018-11-12] MEDS: PANTOprazole 40 MG TAB PO SCH (08:02)
[2018-11-12] MEDS ORDERED: OXYCODONE/ACETAMINOPHEN 5mg/325mg TAB PO PRN (08:27)
--- NOTE | 2018-11-12 08:29 | Surgery Progress Note ---
Date of Service November 12, 2018 Assessment & Plan (1) Recurrent adenocarcinoma of colorectal region: POD 5 resection of ileo-transverse anastomosis had similar slow recovery last surgery, spent 2 weeks in hospital and was on TPN try phenergan, cont to ambulate labs have been stable, abdomen is benign diet as jose Supervising Physician Co-Signing Physician Notes PNT S&E, agree with above. s/p ileocolic resection for recurrent cancer. Passing gas, having loose bm's. Feels some trouble swallowing, can't explain it. abd soft, mildly distended, nontender, incision c/d/i. will obtain calorie counts, add protein shakes, nutrition conulst and speech for swallow eval. advance to low fiber diet as tolerated, Dr. Multani covering while I am out of town. Subjective bowels moving but no appetite, having pain, some nausea Physical Exam Gastrointestinal (Abdomen): Inspection/Auscultation: + abdominal surgical incision (dry, no erythema); abdomen not distended Percussion/Palpation: abdomen soft Results & Data Vital Signs (Past 12 Hours) Vital Signs Temp Pulse Pulse Pulse Resp BP BP 11/12/18 07:45 37.0 C 94 H 18 120/80 11/11/18 23:43 11/11/18 23:42 37.0 C 103 H 19 108/70 11/11/18 20:57 102 H 102/65 Pulse Ox 11/12/18 07:45 94 11/11/18 23:43 93 11/11/18 23:42 88 L 11/11/18 20:57 93
[2018-11-12] MEDS: ENOXAPARIN INJ 30 MG/0.3 ML SYR SQ SCH (08:49)
[2018-11-12] MEDS: MoRPHine SULFATE 4 MG/ML 1 ML CARP\\VIAL IV PRN (08:50)
[2018-11-12] MEDS: INSULIN ASPART 100 UNITS/ML 3 ML PEN SC SCH ×4 (08:55→21:38)
[2018-11-12] MEDS: ISOSORBIDE MONO EXTENDED REL 30 MG TABCR PO SCH (10:02)
[2018-11-12] MEDS: CLOPIDOGREL BISULFATE 75 MG TAB PO SCH (10:02)
[2018-11-12] MEDS: predniSONE 5 MG TAB PO SCH (10:02)
[2018-11-12] MEDS: LOSARTAN POTASSIUM 25 MG TAB PO SCH (10:02)
[2018-11-12] MEDS: GABAPENTIN 100 MG CAP PO SCH ×3 (10:03→20:17)
[2018-11-12] MEDS: DULOXETINE HCL 30 MG CAP PO SCH (13:16)
--- NOTE | 2018-11-12 16:53 | Hospitalist Progress Note ---
Date of Service November 12, 2018 Assessment & Plan (1) Recurrent adenocarcinoma of colorectal region: - S/p hemicolectomy in 2007; s/p partial colectomy on 11/07 for recurrent cancer. - Pain management and DVT ppx per primary team. - Carb consistent, soft diet as tolerated; holding IV fluids although pt. does appear dry. - Phenergan and Zofran prn N/V. (2) Diabetes: - Hemoglobin A1C was 7.6. - SSI coverage ordered -- BG relatively well controlled. (3) CAD (coronary artery disease): - CAD S/P CABG x 3 and AVR with Bioprosthetic (2016) - Follows with [facility] [place] [facility], had pre-operative assessment/clearance - Continue Isosorbide 30 mg daily, Losartan 25 mg daily, Toprol XL 100 mg daily, Rosuvastatin 40 mg daily, Plavix 75 mg daily. (4) Hypertension: - Continue anti-hypertensives. (5) Obstructive sleep apnea of adult: - Ordered CPAP - can bring from home. (6) PMR (polymyalgia rheumatica): - Continue Prednisone 5 mg daily. - No indication for stress dosing. (7) History of CVA (cerebrovascular accident): - Occurred following surgery (AVR). - Continue Plavix, statin as prescribed. (8) Depression with anxiety: - Continue Cymbalta as prescribed. (9) DVT prophylaxis: - Lovenox q24hr. Dispo: Will continue to follow, please call with any questions. Supervising Physician Co-Signing Physician Notes PA Supervision Note: I did not personally see or examine the patient today, but I verified all schneider points of NEAL Ayala's assessment and plan with the following exceptions/additions: None Subjective Pt. has increased abd pain, is not tolerating PO intake. Pain is rated as a 10/10. Has nausea, denies vomiting. Is having loose BMs. Review of Systems Review of Systems: All systems reviewed & are unremarkable except as noted in HPI & below Constitutional: + anorexia; no fever, no chills, no fatigue and no weakness Respiratory: no cough, no dyspnea and no dyspnea on exertion Cardiovascular: no chest pain, no palpitations and no edema Gastrointestinal: + abdominal pain, + nausea and + diarrhea/loose stools; no vomiting and no constipation Genitourinary: no difficulty urinating Musculoskeletal: no back pain and no joint pain Integumentary: no non-healing lesions Allergy / Immunological: no rash Physical Exam Physical Exam: General: Resting comfortably in no apparent distress HEENT: NC/AT; PERRLA with EOMI; [place] conjunctiva, MMM. No erythema of posterior pharynx Neck: Supple and nontender Cardiac: RRR Lungs: CTA bilaterally; No rhonchi, wheezing, or rales Abdomen: Bowel normoactive X 4; Nontender to palpation Extremities: Warm. No edema present Neuro: No focal weakness Skin: No rash Results & Data Vital Signs (Past 12 Hours) Vital Signs Temp Pulse Pulse Resp BP BP Pulse Ox 11/12/18 15:39 37.3 C 99 H 16 100/66 93 11/12/18 07:45 37.0 C 94 H 18 120/80 94 Laboratory Results 11/12/18 11/12/18 11/11/18 Range/Units 12:38 08:21 20:58 POC Glucose 195 H 169 H 180 H (70-99) 11/11/18 Range/Units 16:58 POC Glucose 184 H (70-99)
[2018-11-12] MEDS: METOPROLOL SUCC 50MG EXT REL TAB PO SCH (20:17)
[2018-11-12] MEDS: ROSUVASTATIN CALCIUM 20 MG TAB PO SCH (20:17)
[2018-11-13] MEDS ORDERED: SODIUM CHLORIDE 0.9% 500 ML IV ONE (05:50)
[2018-11-13] MEDS ORDERED: TPN/PPN CONSULT PHARMACY PRN (07:20)
--- NOTE | 2018-11-13 07:26 | Surgery Progress Note ---
Date of Service November 13, 2018 Assessment & Plan (1) Recurrent adenocarcinoma of colorectal region: POD 6 resection of ileo-transverse anastomosis more distended today, will go back to sips, start PPN AM labs pending add reglan seen with Dr. Multani Subjective no BM today, pain and nausea improved, given 500 cc NSS overnight for low UOP Physical Exam Gastrointestinal (Abdomen): Inspection/Auscultation: + abdomen distended (slightly), + abdominal surgical incision (clean, dry) and + hypoactive bowel sounds Percussion/Palpation: abdomen soft Results & Data Vital Signs (Past 12 Hours) Vital Signs Temp Pulse Pulse Resp BP BP Pulse Ox 11/13/18 06:59 36.6 C 112 H 16 106/67 92 11/12/18 23:22 37.0 C 97 H 19 97/63 L 94 11/12/18 20:15 103 H 123/75 91
[2018-11-13 08:02] LABS: Basophils # (auto) 0.01 K/uL (0-0.2); Basophils % (auto) 0.1 %; Eosinophils # (auto) 0.05 K/uL (0-0.5); Eosinophils % (auto) 0.6 %; Hematocrit (blood only) 34.7 % (37-47); Hemoglobin 11.2 g/dL (12.0-16.0); Immature Granulocytes # (auto) 0.03 K/uL (0.00-0.02); Immature Granulocytes % (auto) 0.4 %; Lymphocytes # (auto) 1.08 K/uL (1.2-3.4); Lymphocytes % (auto) 13.2 %; Mean Corpuscular Hgb Conc 32.3 g/dL (32-36); Mean Corpuscular Volume 92.5 fL (80-100); Mean Platelet Volume 10.5 fL (7.4-10.4); Monocytes % (auto) 19.6 %; Neutrophils % (auto) 66.1 %; Platelet Count 219 K/uL (130-400); RDW Coefficient of Variation 15.3 % (11.5-14.5); RDW Standard Deviation 52.4 fL (36.4-46.3); Red Blood Count 3.75 M/uL (4.2-5.4); White Blood Count 8.17 K/uL (4.8-10.8)
[2018-11-13] MEDS: ENOXAPARIN INJ 30 MG/0.3 ML SYR SQ SCH (09:07)
[2018-11-13] MEDS: METOCLOPRAMIDE HCL INJ 5 MG/ML 2 ML VIAL IV SCH ×3 (09:08→23:41)
[2018-11-13] MEDS: LOSARTAN POTASSIUM 25 MG TAB PO SCH (09:09)
[2018-11-13] MEDS: GABAPENTIN 100 MG CAP PO SCH ×3 (09:09→23:46)
[2018-11-13] MEDS: CLOPIDOGREL BISULFATE 75 MG TAB PO SCH (09:09)
[2018-11-13] MEDS: predniSONE 5 MG TAB PO SCH (09:09)
[2018-11-13] MEDS: ISOSORBIDE MONO EXTENDED REL 30 MG TABCR PO SCH (09:09)
[2018-11-13] MEDS: INSULIN ASPART 100 UNITS/ML 3 ML PEN SC SCH ×3 (09:11→23:01)
[2018-11-13] MEDS: PANTOprazole 40 MG TAB PO SCH (09:13)
[2018-11-13 09:59] LABS: BUN Creatinine Ratio 8.6 (10-20); Calcium 8.9 mg/dl (8.5-10.1); Est GFR (African American) 12.5; Est GFR (Non-African American) 10.8; Magnesium 2.2 mg/dl (1.8-2.4); Phosphorus 4.1 mg/dl (2.5-4.9); Potassium 4.2 mmol/L (3.5-5.1)
[2018-11-13] MEDS ORDERED: HYDROmorphone INJ 1 MG/ML SYRINGE IV PRN ×2 (10:19→22:05)
[2018-11-13] MEDS ORDERED: SODIUM CHLORIDE 0.9% 1000ML 1,000 ML IV SCH (11:00)
--- NOTE | 2018-11-13 11:29 | Ultrasound Report ---
US renal/blad retro comp CLINICAL HISTORY: 83 years-old Female presenting with RUle out obstruction. TECHNIQUE: Real-time grayscale and limited color Doppler ultrasound imaging of the kidneys and bladde r was performed. COMPARISON: CT from 10/08/2018. FINDINGS: Right kidney: Normal echogenicity of renal parenchyma. Right kidney measures 10.3 cm. No hydronephros is. Either trace perinephric fluid is present versus small exophytic simple cyst. Left kidney: Normal echogenicity of renal parenchyma. Left kidney measures 11.2 cm. No hydronephrosis . Simple 1.1 cm cyst in the interpolar region. Bladder: Normal. Bilateral ureteral jets present. Other: Small amount of ascites in the hepatorenal recess. IMPRESSION: 1. No obstruction. 2. Few renal cysts. 3. Ascites. Electronically signed by: Tito Ramirez M.D. 11/13/2018 11:28 AM
[2018-11-13 12:21] LABS: Appearance Urine Cloudy (Clear); Bacteria Urine Automated Negative (Negative); Bilirubin Urine Negative (Negative); Blood Urine Negative (Negative); Color Urine Dark Yellow; Epithelial Cell Urine Auto >30 /lpf (0-5); Glucose Urine UA Trace (Negative); Ketones Urine Negative (Negative); Leukocyte Esterase Urine 1+ (Negative); Nitrite Urine Negative (Negative); Protein Urine 1+ (Negative); RBC Urine Automated 0-4 /hpf (0-4); Specific Gravity Urine 1.022 (1.000-1.030); Urobilinogen Urine Negative (Negative)
[2018-11-13] MEDS ORDERED: DEXTROSE 10% 1,000 ML IV SCH ×2 (12:30)
[2018-11-13 12:55] LABS: Cast Urine Automated 0 /lpf (0-5)
--- NOTE | 2018-11-13 13:07 | Progress Note ---
Date of Service November 13, 2018 Assessment & Plan (1) S/P colectomy: I saw the pt this am in her room- see Celena Beyer's note She has somewhat high pitched, decreased bowel sounds c/w ileus- not unexpected- will place back on sips , check labs, begin Ppn- may need picc line depending on progress Suspect third spacing of fluids Subjective see A/P Results & Data Vital Signs (Past 12 Hours) Vital Signs Temp Pulse Resp BP Pulse Ox 11/13/18 06:59 36.6 C 112 H 16 106/67 92
[2018-11-13] MEDS: DULOXETINE HCL 30 MG CAP PO SCH (13:24)
--- NOTE | 2018-11-13 15:05 | Hospitalist Progress Note ---
Date of Service November 13, 2018 Assessment & Plan (1) Recurrent adenocarcinoma of colorectal region: - S/p hemicolectomy in 2007; s/p partial colectomy on 11/07 for recurrent cancer, POD#6. - Increased abd distention and pain -- will start PPN this evening and change to sips of water. - Pain management (avoid Morphine due to SHAZIA) & DVT ppx per primary team. - Reglan q6hr scheduled for nausea; Zofran and Phenergan prn. (2) Acute renal failure: - Creatinine increased to 3.70, baseline is ~0.80. - May be ATN in setting of hypotensive episodes vs. dehydration -- FENa indicates pre-renal state. - Urine sodium was 36 -- indicates pre-renal/dehydration; U/a was negative for cast cells -- not likely severe ATN. - Renal US negative for obstruction, did show ascites. - Watkins placed to monitor accurate I/O's. - Started NS at 80 cc/hr; will d/c IV fluids after initiating PPN this evening. - Holding all nephrotoxic agents, including ARB. - Repeat BMP at 4 pm; low threshold to consider nephrology consult if no improvement. (3) Stage III chronic kidney disease: - Nephro work up as noted above. - Renally dose all meds. (4) Acute respiratory failure with hypoxia: - Currently requiring 1-2L via NC; pt. developed hypoxia on 11/11 after receiving IV fluids, did receive Lasix 20 mg IV x 1 dose. - Has SHAZIA on lab work, now requiring aggressive IV fluid hydration. - Will need to monitor O2 sats closely -- will repeat CXR if she develops acute respiratory distress in setting of IV fluids. - Most recent TTE showed EF 55-60%, grade II diastolic dysfunction. (5) Diabetes: - Hemoglobin A1C was 7.6. - SSI coverage ordered -- BG well controlled. (6) CAD (coronary artery disease): - CAD S/P CABG x 3. - Follows with [facility], had pre-operative assessment/clearance - Continue Isosorbide 30 mg daily, Rosuvastatin 40 mg daily, Plavix 75 mg daily. - Holding Losartan in setting of SHAZIA; decrease Metoprolol to 50 mg qhs due to hypotension. (7) History of aortic valve replacement: - AVR with Bioprosthetic (2016). - Most recent TTE in Jul 2017 showed well functioning valve. (8) Hypertension: - Continue anti-hypertensives with exception of Losartan. - Decrease Metoprolol to 50 mg qhs due to hypotension. (9) Obstructive sleep apnea of adult: - CPAP qhs. (10) PMR (polymyalgia rheumatica): - Continue Prednisone 5 mg daily. - Consider stress dose steroids if necessary. (11) History of CVA (cerebrovascular accident): - Occurred following surgery (AVR). - Continue Plavix, statin as prescribed. (12) Depression with anxiety: - Continue Cymbalta as prescribed. (13) DVT prophylaxis: - Converted Lovenox to Heparin in setting of SHAZIA. Dispo: Will continue to follow, please call with any questions. Supervising Physician Co-Signing Physician Notes PA Supervision Note: I did not personally see or examine the patient today, but I verified all schneider points of NEAL Ayala's assessment and plan with the following exceptions/additions: After Awtkins catheter was placed today, pt had minimal UOP and renal function continued to decline. Abd pain worsened and she spiked a fever, was hypotensive and tachycardic. Discussed plan of care with NEAL Ayala including advising her to contact the Surgical attending and Nephrology, check a lactate, inquire about abdominal imaging with Surgeon, and transfer to a higher level of care. Surgeon saw pt and decided to take her for ex lap given deterioration of condition. NEAL Ayala did start stress dose steroids with IV hydrocortisone. She will likely need all po meds converted to IV if possible after surgery Continue IVFs and PPN/TPN after surgery Appreciate ICU management and Surgery management-I discussed her care with the ICU attending. Subjective Abdomen with increased distention today. Has nausea, no vomiting. Complains of severe abd pain, associated with sitting up. Had 3 loose BMs yesterday, is passing gas. Is not eating due to nausea/pain. Last void was in the evening on 11/12/18, did not void overnight or this morning. Has an SHAZIA -- will place watkins for accurate I/Os. Review of Systems Review of Systems: All systems reviewed & are unremarkable except as noted in HPI & below Constitutional: + fatigue, + weakness and + anorexia; no fever and no chills Respiratory: no cough, no dyspnea, no dyspnea on exertion and no wheezing Cardiovascular: no chest pain, no palpitations and no edema Gastrointestinal: + abdominal pain, + bloating, + nausea and + diarrhea/loose stools; no vomiting and no constipation Genitourinary: + difficulty urinating Musculoskeletal: no back pain and no joint pain Integumentary: no non-healing lesions Allergy / Immunological: no rash Physical Exam Physical Exam: General: Resting comfortably HEENT: NC/AT; PERRLA with EOMI; Noonan conjunctiva, MMM. No erythema of posterior pharynx Neck: Supple and nontender Cardiac: RRR Lungs: 1L via NC; mild bilat crackles in lower lung bases. Abdomen: Bowel normoactive X 4; did not palpate abdomen. Extremities: Warm. No edema present Neuro: No focal weakness Skin: No rash Results & Data Vital Signs (Past 12 Hours) Vital Signs Temp Pulse Resp BP Pulse Ox 11/13/18 06:59 36.6 C 112 H 16 106/67 92 Laboratory Results 11/13/18 11/13/18 11/13/18 Range/Units 12:04 11:45 11:45 WBC (4.8-10.8) K/uL RBC (4.2-5.4) M/uL Hgb (12.0-16.0) g/dL Hct (37-47) % MCV (80-100) fL MCH (25-34) pg MCHC (32-36) g/dL RDW Std Deviation (36.4-46.3) fL RDW Coeff of David (11.5-14.5) % Plt Count (130-400) K/uL MPV (7.4-10.4) fL Immature Gran % (Auto) % Neut % (Auto) % Lymph % (Auto) % Benzie % (Auto) % Eos % (Auto) % Baso % (Auto) % Immature Gran # (Auto) (0.00-0.02) K/uL Neut # (Auto) (1.4-6.5) K/uL Lymph # (Auto) (1.2-3.4) K/uL Benzie # (Auto) (0.11-0.59) K/uL Eos # (Auto) (0-0.5) K/uL Baso # (Auto) (0-0.2) K/uL Sodium Potassium Chloride Carbon Dioxide Anion Gap BUN Creatinine Est Cr Clr Drug Dosing Est GFR ( Amer) Est GFR (Non-Af Amer) BUN/Creatinine Ratio Glucose POC Glucose 158 H (70-99) Calcium Phosphorus Magnesium Urine Color Dark Yellow Urine Appearance Cloudy A (Clear) Urine pH 5.0 (4.5-7.5) Ur Specific [place] 1.022 (1.000-1.030) Urine Protein 1+ H (Negative) Urine Glucose (UA) Trace H (Negative) Urine Ketones Negative (Negative) Urine Blood Negative (Negative) Urine Nitrite Negative (Negative) Urine Bilirubin Negative (Negative) Urine Urobilinogen Negative (Negative) Ur Leukocyte Esterase 1+ H (Negative) Urine WBC (Auto) 1-5 (0-5) /hpf Urine RBC (Auto) 0-4 (0-4) /hpf U Hyaline Cast (Auto) 0 (0-5) /lpf U Epithel Cells (Auto) >30 H (0-5) /lpf Urine Bacteria (Auto) Negative (Negative) Urine Yeast Not Reportable Ur Random Creatinine mg/dl Ur Random Sodium Cancelled mmol/L 11/13/18 11/13/18 11/13/18 Range/Units 11:45 09:12 08:12 WBC (4.8-10.8) K/uL RBC (4.2-5.4) M/uL Hgb (12.0-16.0) g/dL Hct (37-47) % MCV (80-100) fL MCH (25-34) pg MCHC (32-36) g/dL RDW Std Deviation (36.4-46.3) fL RDW Coeff of David (11.5-14.5) % Plt Count (130-400) K/uL MPV (7.4-10.4) fL Immature Gran % (Auto) % Neut % (Auto) % Lymph % (Auto) % Benzie % (Auto) % Eos % (Auto) % Baso % (Auto) % Immature Gran # (Auto) (0.00-0.02) K/uL Neut # (Auto) (1.4-6.5) K/uL Lymph # (Auto) (1.2-3.4) K/uL Benzie # (Auto) (0.11-0.59) K/uL Eos # (Auto) (0-0.5) K/uL Baso # (Auto) (0-0.2) K/uL Sodium 132 L Potassium 4.2 Chloride 95 L Carbon Dioxide 28 Anion Gap 9.0 BUN 32 H Creatinine 3.70 H Est Cr Clr Drug Dosing 13.0 Est GFR ( Amer) 12.5 Est GFR (Non-Af Amer) 10.8 BUN/Creatinine Ratio 8.6 L Glucose 161 H POC Glucose 154 H (70-99) Calcium 8.9 Phosphorus 4.1 Magnesium 2.2 Urine Color Urine Appearance (Clear) Urine pH (4.5-7.5) Ur Specific [place] (1.000-1.030) Urine Protein (Negative) Urine Glucose (UA) (Negative) Urine Ketones (Negative) Urine Blood (Negative) Urine Nitrite (Negative) Urine Bilirubin (Negative) Urine Urobilinogen (Negative) Ur Leukocyte Esterase (Negative) Urine WBC (Auto) (0-5) /hpf Urine RBC (Auto) (0-4) /hpf U Hyaline Cast (Auto) (0-5) /lpf U Epithel Cells (Auto) (0-5) /lpf Urine Bacteria (Auto) (Negative) Urine Yeast Ur Random Creatinine 125.0 mg/dl Ur Random Sodium 36 mmol/L 11/13/18 11/13/18 11/12/18 Range/Units 07:48 07:48 21:25 WBC 8.17 (4.8-10.8) K/uL RBC 3.75 L (4.2-5.4) M/uL Hgb 11.2 L (12.0-16.0) g/dL Hct 34.7 L (37-47) % MCV 92.5 (80-100) fL MCH 29.9 (25-34) pg MCHC 32.3 (32-36) g/dL RDW Std Deviation 52.4 H (36.4-46.3) fL RDW Coeff of David 15.3 H (11.5-14.5) % Plt Count 219 (130-400) K/uL MPV 10.5 H (7.4-10.4) fL Immature Gran % (Auto) 0.4 % Neut % (Auto) 66.1 % Lymph % (Auto) 13.2 % Benzie % (Auto) 19.6 % Eos % (Auto) 0.6 % Baso % (Auto) 0.1 % Immature Gran # (Auto) 0.03 H (0.00-0.02) K/uL Neut # (Auto) 5.40 (1.4-6.5) K/uL Lymph # (Auto) 1.08 L (1.2-3.4) K/uL Benzie # (Auto) 1.60 H (0.11-0.59) K/uL Eos # (Auto) 0.05 (0-0.5) K/uL Baso # (Auto) 0.01 (0-0.2) K/uL Sodium Cancelled Potassium Cancelled Chloride Cancelled Carbon Dioxide Cancelled Anion Gap Cancelled BUN Cancelled Creatinine Cancelled Est Cr Clr Drug Dosing Cancelled Est GFR ( Amer) Cancelled Est GFR (Non-Af Amer) Cancelled BUN/Creatinine Ratio Cancelled Glucose Cancelled POC Glucose 167 H (70-99) Calcium Cancelled Phosphorus Cancelled Magnesium Cancelled Urine Color Urine Appearance (Clear) Urine pH (4.5-7.5) Ur Specific [place] (1.000-1.030) Urine Protein (Negative) Urine Glucose (UA) (Negative) Urine Ketones (Negative) Urine Blood (Negative) Urine Nitrite (Negative) Urine Bilirubin (Negative) Urine Urobilinogen (Negative) Ur Leukocyte Esterase (Negative) Urine WBC (Auto) (0-5) /hpf Urine RBC (Auto) (0-4) /hpf U Hyaline Cast (Auto) (0-5) /lpf U Epithel Cells (Auto) (0-5) /lpf Urine Bacteria (Auto) (Negative) Urine Yeast Ur Random Creatinine mg/dl Ur Random Sodium mmol/L 11/12/18 11/12/18 Range/Units 17:26 12:38 WBC (4.8-10.8) K/uL RBC (4.2-5.4) M/uL Hgb (12.0-16.0) g/dL Hct (37-47) % MCV (80-100) fL MCH (25-34) pg MCHC (32-36) g/dL RDW Std Deviation (36.4-46.3) fL RDW Coeff of David (11.5-14.5) % Plt Count (130-400) K/uL MPV (7.4-10.4) fL Immature Gran % (Auto) % Neut % (Auto) % Lymph % (Auto) % Benzie % (Auto) % Eos % (Auto) % Baso % (Auto) % Immature Gran # (Auto) (0.00-0.02) K/uL Neut # (Auto) (1.4-6.5) K/uL Lymph # (Auto) (1.2-3.4) K/uL Benzie # (Auto) (0.11-0.59) K/uL Eos # (Auto) (0-0.5) K/uL Baso # (Auto) (0-0.2) K/uL Sodium Potassium Chloride Carbon Dioxide Anion Gap BUN Creatinine Est Cr Clr Drug Dosing Est GFR ( Amer) Est GFR (Non-Af Amer) BUN/Creatinine Ratio Glucose POC Glucose 193 H 195 H (70-99) Calcium Phosphorus Magnesium Urine Color Urine Appearance (Clear) Urine pH (4.5-7.5) Ur Specific [place] (1.000-1.030) Urine Protein (Negative) Urine Glucose (UA) (Negative) Urine Ketones (Negative) Urine Blood (Negative) Urine Nitrite (Negative) Urine Bilirubin (Negative) Urine Urobilinogen (Negative) Ur Leukocyte Esterase (Negative) Urine WBC (Auto) (0-5) /hpf Urine RBC (Auto) (0-4) /hpf U Hyaline Cast (Auto) (0-5) /lpf U Epithel Cells (Auto) (0-5) /lpf Urine Bacteria (Auto) (Negative) Urine Yeast Ur Random Creatinine mg/dl Ur Random Sodium mmol/L
[2018-11-13] MEDS ORDERED: Nursing to Pharmacy Communication ONE (15:27)
[2018-11-13 16:41] LABS: Albumin Level 2.3 gm/dl (3.4-5.0); BUN Creatinine Ratio 8.4 (10-20); Calcium 8.9 mg/dl (8.5-10.1); Creatinine Clr Calc Pharmacy 10.9 ml/min; Est GFR (African American) 10.2; Est GFR (Non-African American) 8.8; Potassium 4.6 mmol/L (3.5-5.1)
[2018-11-13 16:44] LABS: Albumin Globulin Ratio 0.5 (0.9-2); Bilirubin,Total 0.7 mg/dl (0.2-1); Globulin 4.4 gm/dl (2.5-4.0); Total Protein 6.7 gm/dl (6.4-8.2)
[2018-11-13] MEDS ORDERED: SODIUM CHLORIDE 0.9% 1000ML 500 ML IV ONE (16:47)
[2018-11-13] MEDS ORDERED: HYDROCORTISONE SOD SUCCINATE 100 MG/2 ML VIAL IV SCH (17:00)
--- NOTE | 2018-11-13 17:20 | XRay Report ---
XR chest 1V portable HISTORY: Rule out PNA vs. CHF COMPARISON: Chest 11/11/2018. FINDINGS: The heart remains mildly enlarged. No pneumothorax. Cardiac valve prosthesis and postoperat clarke changes are again noted. A few bibasilar linear densities suggestive of subsegmental atelectasis. Prior cholecystectomy. There are low lung volumes. There is slight prominence of the interstitial an d vascular markings suggestive of mild congestive change. This remains stable. No new focal lung cons olidations to suggest pneumonia. No pleural effusions. IMPRESSION: 1. No change compared to the prior study. 2. Mild central pulmonary vascular congestion without overt edema. 3. Low lung volumes with bibasilar linear densities suggesting subsegmental atelectasis. Electronically signed by: Marcus Jacob M.D. 11/13/2018 5:18 PM
[2018-11-13] MEDS ORDERED: PIPERACILL/TAZOBAC CONSULT ACTIVE PRN ×2 (17:46→22:05)
[2018-11-13] MEDS ORDERED: PIPERACILLIN/TAZOBACTAM 3.375 GM in DEXTROSE 5% 100 ML IV ONE (18:00)
[2018-11-13] MEDS ORDERED: CUSTOM PERIPHERAL PN IV SCH (18:00)
[2018-11-13] MEDS ORDERED: PROPOFOL IV EMULSION 10 MG/ML 20 ML VIAL IV ONE (18:08)
[2018-11-13] MEDS ORDERED: LIDOCAINE HCL 2% 2 ML VIAL/AMP(20MG/ML) INFIL ONE (18:08)
[2018-11-13] MEDS ORDERED: fentaNYL citrate 100 MCG/2 ML VIAL ONE ×2 (18:08→20:37)
[2018-11-13] MEDS ORDERED: ATROPINE SULFATE 0.1 MG/ML 10ML SYR IV PRN (18:29)
[2018-11-13] MEDS ORDERED: ePHEDrine sulfate 50 MG/ML AMP IV PRN (18:29)
[2018-11-13] MEDS ORDERED: HYDROmorphone INJ 2 MG/ML SYR/VIAL IV PRN (18:29)
[2018-11-13] MEDS ORDERED: DEXAMETHASONE SOD INJ 4 MG/ML VIAL ONE (19:57)
[2018-11-13] MEDS ORDERED: PHENYLEPHRINE HCL 10 MG/ML VIAL ONE (19:57)
[2018-11-13] MEDS ORDERED: SUCCINYLCHOLINE 100MG/5ML SYR ONE (19:57)
[2018-11-13] MEDS ORDERED: ROCURONIUM BROMIDE 10 MG/ML 5 ML VIAL ONE (19:57)
[2018-11-13 20:03] LABS: HCO3 ABG 19 mmol/L (19-24); Hematocrit (blood only) 33.4 % (37-47); Hemoglobin 11.1 g/dL (12.0-16.0); Oxygen Saturation ABG 99.4 % (90-95); PCO2 ABG 30 mmHg (35-46); PO2 ABG 199 mm/Hg (80-95); pH ABG 7.41 (7.35-7.45)
[2018-11-13 20:17] LABS: Potassium 4.1 mmol/L (3.5-5.1)
--- NOTE | 2018-11-13 20:55 | Operative Report ---
Post Operative Report Pre & Post Diagnosis Operation Date: 11/07/18 08:10 Pre-Op Diagnosis: Recurrent Colon Cancer; Diabetes Post-Op Diagnosis: Recurrent Colon Cancer; Diabetes Operation Date: 11/13/18 18:00 Pre-Op Diagnosis: Small Bowel Infarction Post-Op Diagnosis: Small Bowel Infarction , bowel obstruction Procedure Operation Date: 11/07/18 08:10 Actual Procedures p Laparoscopic Assisted Partial Colectomy with ileocolic anastomosis(Not Applicable) - Ruperto Joseph DO, FACS Operation Date: 11/13/18 18:00 Actual Procedures p Exploratory Laparotomy - Owen Multani MD, FACS s Bowel Resection - Owen Multani MD, FACS ileocolic resection, mucous fistula, ileostomy Surgeon Owen Multani MD, FACS Various Exceptionalities Teacher Robin Beyer Estimated Blood Loss 50 Findings Consistent with Post-Op Diagnosis Specimens small bowel, ileocolic anastomosis Description of Procedure see dictation I attest to the content of the Intraoperative Record and any orders documented therein. Any exceptions are noted below.
[2018-11-13] MEDS ORDERED: METOPROLOL SUCC 50MG EXT REL TAB PO SCH (21:00)
[2018-11-13] MEDS ORDERED: fentaNYL DRIP 1,250 MCG/250 ML BAG IV SCH (21:45)
[2018-11-13] MEDS ORDERED: PROPOFOL 1,000 MG/100 ML VIAL IV SCH (21:45)
--- NOTE | 2018-11-13 21:58 | Critical Care Consultation ---
Date of Consultation November 13, 2018 Assessment & Plan (1) Recurrent adenocarcinoma of colorectal region: Reason Critically Ill: 83-year-old female with recent colectomy for recurrent adenocarcinoma of colon, who presented to the ICU postoperatively following an ex-lap which revealed multiple small bowel infarcts and patient underwent small bowel resect, ileocolic resection, mucous fistula, and ileostomy. Neuro - [facility] ICU: Unable to assess secondary to sedation Sedation: Propofol, fentanyl Cardiac - AVR/CAD: Status post AVR and CABG x3 in 2016, continue Plavix Hypertension: Losartan held for renal failure, holding other home meds for current hypertension Respiratory - Acute respiratory failure: Patient reportedly became hypoxic this a.m. requiring 2 to 3 L nasal cannula, currently intubated postop -Vent settings: AC VC 14/500/5/80% -AB.22/46/167/19, trend -Chest x-ray confirmed ET tube placement, small bilateral pleural effusions -We will remain intubated overnight, weaning oxygenation -Pulmonary toileting GI - Colorectal adenocarcinoma-S/P partial colectomy with ileocolic anastomosis 11/07, developed small bowel infarcts this a.m. and required small bowel resection and ileocolic resection, mucous fistula, ileostomy. -General surgery consulted and appreciate recommendations -OG tube inserted, intermittent low wall suction -N.p.o. -Lactate 1.3 postop, will trend -Fentanyl drip for pain, postop -Reglan and as needed Zofran for nausea RENAL/LYTES - Acute renal failure/metabolic acidosis: Patient developed SHAZIA on CKD this a.m. and became anuric, likely secondary to hypotension as Fena score indicates prerenal -Creatinine/BUN 37/4.38, electrolytes stable at this time -Maintaining kidney perfusion with blood pressure support -Renal ultrasound showed no obstruction, few renal cyst, ascites -HCO3 19 and blood glass showed mild metabolic acidosis, will consider bicarb drip if worsening -Holding losartan, avoiding nephrotoxic agents -Monitor with routine BMPs -nephrology consulted, will follow up fatou Figueroa for strict I's and O's, currently anuric ENDO - DM: On sliding scale at home, hemoglobin A1c 7.6 -ICU hypoglycemic protocol, sliding scale HEME - Intraoperative EBL of 50, H&H stable, monitor with routine CBCs ID - Blood cultures x2 and urine culture pending, continue empiric Zosyn LINES/IV ACCESS - Right IJ CVL, ETT 21 cm at lips, OG tube, right radial A-line DVT PROPHYLAXIS - Subcu heparin, SCDs I have personally spent 70 minutes of critical care time in the direct management of this patient. This is a life/limb threatening event. This includes time spent evaluating patient, direct bedside care, chart review, placing orders, interpretation of diagnostic studies, discussion with consultants, patient, and family members, as well as other required patient management activities. This time is exclusive of all separately billable procedures, and teaching time and separate from and in addition to any other critical care service time. Thank you for allowing us to participate in the care of this patient. Please refer to my attending physician's documentation for any further recommendations. (2) History of aortic valve replacement: (3) Acute respiratory failure with hypoxia: (4) Acute renal failure: (5) S/P colectomy: (6) History of CVA (cerebrovascular accident): (7) Diabetes: (8) CAD (coronary artery disease): (9) GERD (gastroesophageal reflux disease): Supervising Physician Co-Signing Physician Notes I have personally evaluated and examined this patient. I agree with assessment and plan of Isaias SMITH. I personally saw the patient from 1730 ~1830, discussed with Dr. Multani as well as Dr. Patricia. We will see the patient postoperatively after urgent exploratory laparotomy for possible wound dehiscence versus mesenteric ischemia. I verbally consented the patient for bronchoscopy, central line, temporary hemodialysis catheter, arterial line. History of Present Illness Attending Physician: Ruperto Joseph DO, FACS History of Present Illness Ms. Ponce is an 83-year-old female with past medical history significant for AVR 2016, CAD s/p CABG x3, CKD stage III, colorectal adenocarcinoma, CVA, DM, hypertension, LALA, anxiety and depression. She recently underwent partial colectomy with ileocolic anastomosis on 11/07/2018. This a.m. she became hypotensive, hypoxic, and febrile and developed an SHAZIA. There was concern from general surgery for leakage vs. ischemic bowel. She underwent an ex lap this afternoon, in which the surgeon found multiple areas of infarct to the small bowel. She underwent small bowel resection, ileocolic resection, mucous fistula, ileostomy. She now presents to the ICU postoperatively. Patient remains intubated and sedated. Blood pressures soft on arrival but improved when given albumin. Patient was able to follow commands, and denied pain. Plan to remain in ICU for ventilator management/weaning and critical support at this time. Allergies Allergy/AdvReac Type Severity Reaction Status Date / Time azithromycin AdvReac Intermediate Diarrhea Verified 11/07/18 07:12 cefadroxil AdvReac Intermediate Diarrhea Verified 11/07/18 07:12 clindamycin AdvReac Intermediate Diarrhea Verified 11/07/18 07:12 doxycycline AdvReac Intermediate Diarrhea Verified 11/07/18 07:12 levofloxacin AdvReac Intermediate Diarrhea Verified 11/07/18 07:12 metronidazole AdvReac Intermediate Diarrhea Verified 11/07/18 07:12 sulfamethoxazole AdvReac Intermediate Diarrhea Verified 11/07/18 07:12 [From Bactrim] trimethoprim [From Bactrim] AdvReac Intermediate Diarrhea Verified 11/07/18 07:12 amoxicillin AdvReac Mild diarrhea Verified 11/07/18 07:12 clavulanic acid AdvReac Mild diarrhea Verified 11/07/18 07:12 metformin AdvReac Mild Diarrhea Verified 11/07/18 07:12 sitagliptin AdvReac Mild diarreha Verified 11/07/18 07:12 Home Medications Home Medications Medication Instructions Recorded Confirmed Type Calcium 600 + D(3) 1 tab PO BID 02/15/18 11/07/18 History Novolog Flexpen U-100 Insulin 5 unit SUBCUT 1700 02/15/18 11/07/18 History Tresiba FlexTouch U-100 15 unit SUBCUT HS 02/15/18 11/07/18 History acetaminophen [Tylenol Extra 1,000 mg PO TID PRN 02/15/18 11/07/18 History Strength] cholecalciferol (vitamin D3) 2,000 unit PO BID 02/15/18 11/07/18 History [Vitamin D3] clopidogrel [Plavix] 75 mg PO HS 02/15/18 11/07/18 History diclofenac sodium [Voltaren] 2 g TOPICAL QID PRN 02/15/18 11/07/18 History duloxetine [Cymbalta] 30 mg PO 1200 02/15/18 11/07/18 History gabapentin 100 mg PO TID 02/15/18 11/07/18 History isosorbide mononitrate 30 mg PO QAM 02/15/18 11/07/18 History losartan 25 mg PO QAM 02/15/18 11/07/18 History metoprolol succinate [Toprol XL] 100 mg PO QPM 02/15/18 11/07/18 History nitroglycerin [Nitrostat] 0.4 mg SUBLINGUAL DIRECTED PRN 02/15/18 11/07/18 History prednisone 5 mg PO QAM 02/15/18 11/07/18 History rosuvastatin [Crestor] 40 mg PO QPM 02/15/18 11/07/18 History zolpidem [Ambien] 5 mg PO HS PRN 02/15/18 11/07/18 History loratadine 10 mg PO DAILY PRN 10/12/18 11/07/18 History triamcinolone acetonide [Nasacort] 1 spray INTRANASAL DAILY PRN 10/12/18 11/07/18 History pantoprazole [Protonix] 40 mg PO DAILY 11/07/18 11/07/18 History oxycodone-acetaminophen [Percocet] 1 - 2 tab PO Q4H PRN #15 tab MDD 6 11/09/18 Rx Patient History Medical History CAD (coronary artery disease) Severe, s/p CABG x 3 with AVR 03/2016, complicated by post-op CVA. Hypertension (Chronic) GERD (gastroesophageal reflux disease) Obstructive sleep apnea of adult cpap PMR (polymyalgia rheumatica) Prednisone daily Anxiety (Acute) Orthostatic hypotension (Acute) H/O malignant neoplasm of colon (Chronic) 2006--sx--"took 17 inches of colon, took appendix, took ovaries/fallopian tubes at same time" H/O: CVA (cerebrovascular accident) (Chronic) After CABG/AVR, 2015; residual weakness on right side. 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) Hearing deficit Kidney stones Osteoarthritis Peptic ulcer (02/05/11) Spinal stenosis Surgical History History of aortic valve replacement 03/18/2016 @ [facility] History of bilateral cataract extraction History of bilateral tubal ligation History of cholecystectomy History of colectomy 2007 History of colonoscopy History of dilatation and curettage History of esophagogastroduodenoscopy (EGD) History of foot surgery right foot--no hardware in place History of open reduction and internal fixation (ORIF) procedure right hip hardware in place History of tonsillectomy and adenoidectomy History of tooth extraction partial upper denture S/P CABG x 3 2016 @ [facility] Status post incision and drainage sebaceous cyst Family History Brother Family history of diabetes mellitus Grandfather (Maternal) Family history of diabetes mellitus Grandmother (Maternal) Family hx of colon cancer Other No family history of adverse response to anesthesia Social History Preferred Language: [place] Island[place] Communication Ability: Effective Beliefs That Will Affect Care: None marital status: Current Living Situation: Spouse Feels Safe at Home: Yes Smoking Status: Never smoker Cigarettes Per Day: 0 Second Hand Exposure: Yes ( smoked) Hx Alcohol Use: No Hx Substance Use: No Review of Systems Review of Systems: Unobtainable due to cognitive status and Unobtainable due to endotracheal tube Physical Exam Constitutional: Intubated and sedated Eyes: PERRLA, conjunctivae normal ENMT: Trachea midline Respiratory: Normal respiratory rate and nonlabored breathing with ventilator support, lungs clear to auscultation bilaterally in all lobes. Symmetrical chest wall movement. Cardiovascular: Rate/Rhythm: regular rhythm and + tachycardic Heart Sounds: normal S1 and + click Vessels: radial pulses present; no JVD Extremities: normal capillary refill; no edema Gastrointestinal (Abdomen): Abdomen is soft and flat, midline incision well approximated, SANDY drain with serosanguineous drainage, ileostomy pink and moist with scant serosanguineous drainage. Hypoactive bowel sounds auscultated in all 4 quadrants. Neurologic: PERRLA, follows commands, symmetrical movements. Exam limited due to intubation and sedation. Genitourinary: Figueroa catheter present, anuric. Results & Data Vital Signs (Past 12 Hours) Vital Signs Temp Pulse Pulse Resp BP Pulse Ox 11/13/18 18:00 37.8 C H 119 H 28 H 116/46 L 98 11/13/18 17:18 38.4 C H 118 H 20 108/69 96 11/13/18 16:17 37.8 C H 115 H 16 93/47 L 97 Critical Care Time Critical Care Time: Yes (Rio: 60; Gutierrez: 70) Total Critical Care Time: 130
[2018-11-13] MEDS ORDERED: HYDROmorphone INJ 0.5 MG/0.5 ML SYR IV PRN (22:05)
[2018-11-13] MEDS ORDERED: TPN/PPN CONSULT PHARMACY STA ×2 (22:05→22:25)
[2018-11-13] MEDS ORDERED: ICU PROTOCOL FOR HYPERGLYCEMIA PRN ×2 (22:05→22:25)
--- NOTE | 2018-11-13 22:20 | Anesthesiology Progress Note ---
Date of Service November 13, 2018 Anesthesia Post Procedure Vital Signs Vital Signs: Temp Pulse Pulse Pulse Pulse Resp BP 11/13/18 21:30 96 H 12 11/13/18 21:16 36.9 C 94 H 12 11/13/18 18:00 37.8 C H 119 H 28 H 11/13/18 17:18 38.4 C H 118 H 20 11/13/18 16:17 37.8 C H 115 H 16 11/13/18 06:59 36.6 C 112 H 16 11/12/18 23:22 37.0 C 97 H 19 97/63 L BP Pulse Ox 11/13/18 21:30 97 11/13/18 21:16 86/49 L 94 11/13/18 18:00 116/46 L 98 11/13/18 17:18 108/69 96 11/13/18 16:17 93/47 L 97 11/13/18 06:59 106/67 92 11/12/18 23:22 94 Pain Intensity Abdomen: Pain Intensity: 5 Transfer of Care Handoff Completed per policy Notes Mental Status: see notes below Patient Amnestic to Procedure: Yes Nausea / Vomiting: adequately controlled Pain: adequately controlled Airway Patency, RR, SpO2: stable & adequate BP & HR: stable & adequate Hydration State: stable & adequate Anesthetic Complications: no major complications apparent Notes: Pt had exploratory laparotomy, resection of ischemic bowel, colostomy under GA. Pt had placement of right radial arterial line and right internal jugular venous cannula in OR without difficulty. Pt remained oliguric during surgery but had otherwise uneventful course. Postoperatively pt was not reversed. Transported to SICU and placed on mechanical ventilation. For supportive care and further mgt by surgeon and souvenir street vendor in SICU.
[2018-11-13 22:26] LABS: Hematocrit (blood only) 33.8 % (37-47); Hemoglobin 11.1 g/dL (12.0-16.0); Mean Corpuscular Volume 92.9 fL (80-100); Mean Platelet Volume 9.4 fL (7.4-10.4); Nucleated RBC # (auto) 0.05 K/uL (0-0); Nucleated RBC % (auto) 0.7 %; Platelet Count 215 K/uL (130-400); RDW Coefficient of Variation 15.3 % (11.5-14.5); RDW Standard Deviation 52.2 fL (36.4-46.3); Red Blood Count 3.64 M/uL (4.2-5.4); White Blood Count 7.25 K/uL (4.8-10.8)
[2018-11-13 22:39] LABS: INR 1.3 (0.9-1.1); Partial Thromboplastin Ratio 1.1; Partial Thromboplastin Time 30.2 Seconds (21.0-31.0); Prothrombin Time 13.5 Seconds (9.0-12.0)
[2018-11-13] MEDS: SODIUM CHLORIDE 0.9% 1000ML 1,000 ML IV SCH (22:43)
[2018-11-13 22:44] LABS: Mean Corpuscular Hgb Conc 32.8 g/dL (32-36)
[2018-11-13 22:49] LABS: Albumin Level 1.6 gm/dl (3.4-5.0); BUN Creatinine Ratio 8.9 (10-20); Creatinine Clr Calc Pharmacy 11.1 ml/min; Est GFR (African American) 10.4; Magnesium 1.8 mg/dl (1.8-2.4); Potassium 3.9 mmol/L (3.5-5.1)
[2018-11-13 22:51] LABS: Albumin Globulin Ratio 0.5 (0.9-2); Bilirubin,Total 1.1 mg/dl (0.2-1); Globulin 3.3 gm/dl (2.5-4.0); Total Protein 4.9 gm/dl (6.4-8.2)
[2018-11-13 22:52] LABS: Phosphorus 5.1 mg/dl (2.5-4.9)
[2018-11-13 22:57] LABS: ALC (manual) 0.51 K/uL (1.2-3.4); Basophils # (manual) 0.07 K/uL (0-0.2); Basophils % (manual) 0.9 %; Dohle Bodies 1+; Echinocytes 1+; Lymphocytes # (manual) 0.51 K/uL (1.2-3.4); Metamyelocytes # (manual) 0.12 K/uL (0-0); Metamyelocytes % (manual) 1.7 %; Monocytes # (manual) 0.19 K/uL (0.11-0.59); Monocytes % (manual) 2.6 %; Myelocytes # (manual) 0.12 K/uL (0-0); Myelocytes % (manual) 1.7 %; Neutrophils % (manual) 86.1 %; Toxic Granulation 2+; Toxic Vacuolation 1+
[2018-11-13] MEDS ORDERED: ALBUMIN 5% 250 ML IV ONE (23:00)
--- NOTE | 2018-11-13 23:01 | XRay Report ---
XR chest 1V portable CLINICAL HISTORY: Pulmonary edema. COMPARISON STUDY: Chest CT October 08, 2018. Chest radiograph November 13, 2018. FINDINGS: The tip of the endotracheal tube is approximately 4 cm above the ashia. Tip of nasogastric tube is likely within the body of the stomach. Tip of right internal jugular central line projects o leona the proximal SVC. There is no pneumothorax. Small bilateral pleural effusions persist. No evidenc e for pulmonary edema. Cardiomegaly is unchanged. IMPRESSION: 1. Satisfactory positioning of lines and tubes. 2. No pneumothorax. 3. Small bilateral pleural effusions. Electronically signed by: Emmanuel Marino M.D. 11/13/2018 10:59 PM
[2018-11-13] MEDS: HYDROCORTISONE SOD 50 MG in SYRINGE 0 ML IV SCH (23:02)
[2018-11-13] MEDS ORDERED: NORMOSOL-R 250 ML IV ONE (23:11)
[2018-11-13] MEDS: ROSUVASTATIN CALCIUM 20 MG TAB PO SCH (23:45)
[2018-11-13] MEDS: NORMOSOL-R 1,000 ML IV SCH (23:53)
[2018-11-14] MEDS: NOREPINEPHRINE BIT INJ 8 MG in DEXTROSE 5% 500 ML IV SCH ×2 (00:26→11:54)
[2018-11-14] MEDS: INSULIN ASPART 100 UNITS/ML 3 ML PEN SC SCH ×4 (01:30→18:09)
--- NOTE | 2018-11-14 02:40 | Operative Report ---
DATE OF OPERATION: 11/13/2018 NAME OF OPERATION: Laparotomy with small bowel resection, ileocolic resection, mucous fistula, ileostomy and abdominal washout. PREOPERATIVE DIAGNOSIS: Intra-abdominal sepsis. POSTOPERATIVE DIAGNOSES: Intra-abdominal sepsis with ischemic and infarcted small bowel with small bowel obstruction. STAFF SURGEON: Owen Multani MD ANESTHESIA: General. PROCEDURE: The patient was brought in the operating room and placed on the Operating Room table in supine position. She had a Figueroa catheter in place. Pneumatic stockings in place. Her brandon in the midline were removed. The incision was made, extended cephalad and caudad carrying dissection down into the abdomen encountering bloody serous fluid/ascites. The small bowel was severely dilated on inspection and it was traced from the ligament of Treitz distally, encountering ischemic distal small bowel with patchy areas of infarction, some of which were 8-10 cm in length over a relatively long area. Very distal portion of the small bowel seemed to be decompressed. It did appear that the small bowel was torsed in the right lateral abdomen from acute adhesions causing small bowel obstruction. The small bowel was mobilized. The distal small bowel approximately 20 cm appeared to be decompressed at the anastomosis. There did not appear to be any leakage from the anastomosis. Upon reflection of the small bowel, it actually opened in areas of infarction spilling some enteric contents, most of which was recovered in a basin. The small bowel was transected near the proximal ileum using a PRIYANK stapler and then also distally trying to see if we can salvage some of the distal ileum. The small bowel was then resected by transecting the mesentery using the LigaSure and also 2-0 silk suture ligatures. The distal small bowel was not viable at the anastomosis and the colon just distal to the anastomosis appeared to be somewhat pale and ischemic. The anastomosis was resected by transecting the colon after mobilizing the splenic flexure using the PRIYANK stapler to transect the colon. The small bowel, colon and anastomosis were then resected and sent for pathology. At this point, the abdomen was irrigated with warm saline and then antibiotic solution. The remaining small bowel was viable, but edematous. The colon appeared to be viable. The colon was brought up through the left abdominal wall for mucous fistula secured using 0 chromic and 2-0 chromic suture to the fascia and skin. Small bowel was brought out through the right abdomen as an end ileostomy secured using 3-0 silk suture and 2-0 chromic suture. At this point, the fascia was reapproximated using both running and interrupted #1 PDS suture with large #1 nylon retention sutures placed. A [place] drain was placed in the subcutaneous space. The skin was loosely reapproximated using brandon. A 19 round Marcello-Verdin drain was placed into the left lower quadrant into the pelvis, secured using 3-0 nylon suture before closure. The retention sutures were secured. The mucous fistula and ileostomy were opened. They were completely viable. Dressings were applied. I did tuck 4 x 4 wet gauze into the incision intermittently between the brandon. The patient was transferred to intensive care unit in guarded condition. I attest to the content of the Intraoperative Record and any orders documented therein. Any exceptions are noted below. PRAVEEND
[2018-11-14] MEDS: HYDROCORTISONE SOD 50 MG in SYRINGE 0 ML IV SCH ×3 (02:50→17:52)
[2018-11-14] MEDS: METOCLOPRAMIDE HCL INJ 5 MG/ML 2 ML VIAL IV SCH ×4 (02:50→20:26)
[2018-11-14 03:05] LABS: Albumin Level 1.8 gm/dl (3.4-5.0); BUN Creatinine Ratio 8.5 (10-20); Calcium 6.5 mg/dl (8.5-10.1); Creatinine Clr Calc Pharmacy 10.7 ml/min; Est GFR (African American) 9.9; Est GFR (Non-African American) 8.6; Magnesium 1.8 mg/dl (1.8-2.4); Potassium 4.1 mmol/L (3.5-5.1)
[2018-11-14 03:08] LABS: Albumin Globulin Ratio 0.6 (0.9-2); Bilirubin,Total 1.2 mg/dl (0.2-1); Phosphorus 4.9 mg/dl (2.5-4.9); Total Protein 4.8 gm/dl (6.4-8.2)
[2018-11-14] MEDS: PIPERACILLIN/TAZOBACTAM 3.375 GM in DEXTROSE 5% 100 ML IV SCH ×2 (03:08→13:15)
[2018-11-14] MEDS ORDERED: NORMOSOL-R 500 ML IV ONE ×4 (03:57→19:11)
[2018-11-14] MEDS ORDERED: CALCIUM CHLORIDE 10% 1,000 MG in SODIUM CHLORIDE 0.9% 50 ML IV ONE (04:00)
[2018-11-14] MEDS: NORMOSOL-R 1,000 ML IV SCH ×3 (05:07→18:30)
--- NOTE | 2018-11-14 06:00 | Progress Note ---
Date of Service November 14, 2018 Assessment & Plan (1) Small bowel infarction: vent support at present , renal failure continues mild improvement but critical situation may req dialysis. ask wound care to see pt will need nutritional support (ppn/tpn ) at some point. Subjective pt on vent, low dose of Levophed, poor urine output, creat higher 4.48 last bp 80-90's syst serous drain output Physical Exam Physical Exam: her extrem are warm, abd- incis intact, stomas viable Results & Data Vital Signs (Past 12 Hours) Vital Signs Temp Pulse Pulse Pulse Pulse Resp BP 11/14/18 05:00 37.0 C 111 H 89/54 L 11/14/18 04:30 105 H 99/57 L 11/14/18 04:11 109 H 97/57 L 11/14/18 04:00 110 H 80/45 L 11/14/18 03:30 108 H 94/57 L 11/14/18 03:00 114 H 14 98/57 L 11/14/18 02:30 103 H 91/53 L 11/14/18 02:00 100 H 14 87/49 L 11/14/18 01:30 98 H 14 75/45 L 11/14/18 01:05 102 H 92/49 L 11/14/18 01:00 107 H 14 65/48 L 11/14/18 00:55 108 H 84/52 L 11/14/18 00:50 107 H 80/51 L 11/14/18 00:45 108 H 88/45 L 11/14/18 00:40 108 H 84/40 L 11/14/18 00:35 111 H 92/59 L 11/14/18 00:31 110 H 84/34 L 11/14/18 00:26 109 H 71/54 L 11/14/18 00:20 108 H 78/50 L 11/14/18 00:16 111 H 75/34 L 11/14/18 00:10 108 H 70/43 L 11/14/18 00:05 106 H 80/46 L 11/14/18 00:00 36.8 C 108 H 14 81/37 L 11/13/18 23:55 107 H 88/55 L 11/13/18 23:50 109 H 81/38 L 11/13/18 23:40 109 H 83/49 L 11/13/18 23:35 107 H 73/40 L 11/13/18 23:30 108 H 14 87/42 L 11/13/18 23:07 108 H 11/13/18 22:52 12 11/13/18 22:47 109 H 96/50 L 11/13/18 22:43 104 H 173/108 H 11/13/18 22:16 99 H 90/40 L 11/13/18 22:10 104 H 77/59 L 11/13/18 22:06 96 H 108/36 L 11/13/18 22:00 36.9 C 97 H 12 75/57 L 11/13/18 21:35 95 H 12 11/13/18 21:30 96 H 89 12 11/13/18 21:25 89 12 11/13/18 21:20 83 12 11/13/18 21:16 36.9 C 94 H 12 11/13/18 18:00 37.8 C H 119 H 28 H BP BP Pulse Ox 11/14/18 05:00 98 11/14/18 04:30 99 11/14/18 04:11 98 11/14/18 04:00 97 11/14/18 03:30 98 11/14/18 03:00 100 11/14/18 02:30 99 11/14/18 02:00 99 11/14/18 01:30 98 11/14/18 01:05 98 11/14/18 01:00 97 11/14/18 00:55 97 11/14/18 00:50 97 11/14/18 00:45 11/14/18 00:40 95 11/14/18 00:35 96 11/14/18 00:31 96 11/14/18 00:26 95 11/14/18 00:20 96 11/14/18 00:16 11/14/18 00:10 11/14/18 00:05 97 11/14/18 00:00 97 11/13/18 23:55 95 11/13/18 23:50 98 11/13/18 23:40 96 11/13/18 23:35 97 11/13/18 23:30 99 11/13/18 23:07 11/13/18 22:52 11/13/18 22:47 11/13/18 22:43 11/13/18 22:16 96 11/13/18 22:10 98 11/13/18 22:06 98 11/13/18 22:00 95 11/13/18 21:35 93/36 L 91/40 L 97 11/13/18 21:30 92/58 L 90/39 L 95 11/13/18 21:25 81/55 L 97/40 L 97 11/13/18 21:20 86/49 L 95 11/13/18 21:16 86/49 L 94 11/13/18 18:00 116/46 L 98
[2018-11-14] MEDS: SODIUM CHLORIDE 0.9% 1000ML 1,000 ML IV SCH (06:32)
--- NOTE | 2018-11-14 07:01 | XRay Report ---
XR chest 1V portable HISTORY: 83 years-old Female resp failure acute respiratory failure COMPARISON: Chest radiograph 11/13/2018, chest CT 10/08/2018 TECHNIQUE: Portable AP view of the chest FINDINGS: Endotracheal tube overlies the midline, 4.2 cm superior to the ashia. Enteric tube distal tip termin ates over the left upper quadrant, likely within the region of the mid gastric lumen. Prior median st ernotomy with cardiac valvular prosthesis. Calcification the thoracic aortic arch. Stable positioning of right internal jugular central venous catheter. No pneumothorax. Trace pleural effusions with min imal bibasilar opacities. Mild right hemidiaphragmatic elevation is unchanged. Degenerative changes o f the shoulders and spine. IMPRESSION: 1. Stable positioning of life-support lines and tubes. 2. Cardiomegaly without overt pulmonary edema. 3. Trace pleural effusions with subsegmental bibasilar opacities. The above report was generated using voice recognition software. It may contain grammatical, syntax o r spelling errors. Electronically signed by: Den Estrada M.D. 11/14/2018 7:00 AM
[2018-11-14 08:36] LABS: Hematocrit (blood only) 31.7 % (37-47); Hemoglobin 10.2 g/dL (12.0-16.0); Mean Corpuscular Hgb Conc 32.2 g/dL (32-36); Mean Corpuscular Volume 92.2 fL (80-100); Platelet Count 217 K/uL (130-400); RDW Coefficient of Variation 15.4 % (11.5-14.5); RDW Standard Deviation 52.5 fL (36.4-46.3); Red Blood Count 3.44 M/uL (4.2-5.4); White Blood Count 19.25 K/uL (4.8-10.8)
[2018-11-14 08:55] LABS: BUN Creatinine Ratio 7.6 (10-20); Calcium 7.2 mg/dl (8.5-10.1); Creatinine Clr Calc Pharmacy 10.4 ml/min; Est GFR (African American) 9.5; Est GFR (Non-African American) 8.2; Potassium 4.7 mmol/L (3.5-5.1)
[2018-11-14 08:56] LABS: Basophils # (auto) 0.02 K/uL (0-0.2); Basophils % (auto) 0.1 %; Echinocytes 1+; Immature Granulocytes # (auto) 0.52 K/uL (0.00-0.02); Immature Granulocytes % (auto) 2.7 %; Lymphocytes # (auto) 0.81 K/uL (1.2-3.4); Lymphocytes % (auto) 4.2 %; Monocytes # (auto) 1.56 K/uL (0.11-0.59); Monocytes % (auto) 8.1 %; Neutrophils # (auto) 16.34 K/uL (1.4-6.5); Neutrophils % (auto) 84.9 %; Toxic Granulation 2+; Toxic Vacuolation 1+
[2018-11-14] MEDS ORDERED: HEPARIN SOD 5,000 UNIT/0.5 ML VIAL SQ SCH (09:00)
[2018-11-14] MEDS: HEPARIN SOD 5,000 UNIT/0.5 ML VIAL SQ SCH ×2 (09:18→21:35)
[2018-11-14] MEDS: CLOPIDOGREL BISULFATE 75 MG TAB PO SCH (09:19)
[2018-11-14] MEDS: FAMOTIDINE 20 MG in SYRINGE 3 ML IV SCH (09:31)
--- NOTE | 2018-11-14 09:42 | Critical Care Progress Note ---
Date of Service November 14, 2018 Assessment & Plan (1) Recurrent adenocarcinoma of colorectal region: Reason Critically Ill: 83-year-old female with recent colectomy for recurrent adenocarcinoma of colon, who presented to the ICU postoperatively following an ex-lap which revealed multiple small bowel infarcts and patient underwent small bowel resect, ileocolic resection, mucous fistula, and ileostomy. Neuro - RASS -1 Sedation: Discontinuing propofol convert to Versed push sedation, fentanyl Duloxetine: Holding Gabapentin: Holding in the setting of acute kidney injury Ambien: Holding Cardiac - AVR/CAD: Status post AVR and CABG x3 in 2016, continue Plavix Hypertension: Losartan held for renal failure, -Holding to hypertensive medications secondary to sepsis associated hypotension Sepsis associated hypotension -Echo pending -Wean pressors as tolerated Prolonged QTC 487 -Discontinuing Zofran -Avoid QT prolonging medications Respiratory - Acute respiratory failure: New oxygen requirement while on floor, currently ventilated for postoperative respiratory insufficiency -Vent settings: AC VC 14/500/5/40 - Decreasing oxygen requirement -Chest x-ray confirmed ET tube placement, small bilateral pleural effusions -No plans for dialysis this morning, reasonable respiratory management of acidosis, will do CPAP trial and consider extubation later today GI - Colorectal adenocarcinoma-S/P partial colectomy with ileocolic anastomosis 11/07, developed small bowel infarcts this a.m. and required small bowel resection and ileocolic resection, mucous fistula, ileostomy. -We will discuss with general surgery etiology evidence of ischemia: Rela tive hypotension versus A. fib (no evidence on cardiac cath technician) -OG tube inserted, intermittent low wall suction -N.p.o. -Lactate 1.3 postop, will trend -Reglan discontinue after 48 hours Hypoalbuminemia -#1 treatment priority at this time is sepsis and infection, second treatment priority would be acute kidney injury with history of CHF -Judicious use of fluids, holding TPN/PPN until clearly outside of infectious concerns GI prophylaxis: Discontinuing Protonix (inability to cross) convert to Pepcid RENAL/LYTES - Acute renal failure/metabolic acidosis: Patient developed SHAZIA on CKD this a.m. and became anuric, likely secondary to hypotension as Fena score indicates prerenal -Discussed with Dr. Livingston will obtain intra-abdominal pressure -Likely in the setting of abdominal compartment syndrome when abdomen was opened for surgery she would likely have increased -Maintaining kidney perfusion with blood pressure support -Renal ultrasound showed no obstruction, few renal cyst, ascites -Holding losartan, avoiding nephrotoxic agents -Monitor with routine BMPs - Figueroa for strict I's and O's, currently anuric ENDO - DM: On sliding scale at home, hemoglobin A1c 7.6 -ICU hypoglycemic protocol, sliding scale HEME - Intraoperative EBL of 50, H&H stable, monitor with routine CBCs ID - Blood cultures x2 and urine culture pending, continue empiric Zosyn LINES/IV ACCESS - Right IJ: Resecured by staff this morning CVL, ETT 21 cm at lips, OG tube, right radial A-line DVT PROPHYLAXIS - Subcu heparin, SCDs Patient was discussed in multidisciplinary rounds I have personally spent 85 minutes of critical care time in the direct management of this patient. This is a life/limb threatening event. This includes time spent evaluating patient, direct bedside care, chart review, placing orders, interpretation of diagnostic studies, discussion with consultants, patient, and family members, as well as other required patient management activ ities. This time is exclusive of all separately billable procedures, and teaching time and separate from and in addition to any other critical care service time. (2) History of aortic valve replacement: (3) Acute respiratory failure with hypoxia: (4) Acute renal failure: (5) S/P colectomy: (6) History of CVA (cerebrovascular accident): (7) Diabetes: (8) CAD (coronary artery disease): (9) GERD (gastroesophageal reflux disease): Supervising Physician Co-Signing Physician Notes Dr. Willett was resident physician during care of patient. I separately evaluated patient for schneider portions of the history and the exam. I was present during the critical portion of medical decision making, and I discussed the case with the resident. I generally agree with the findings and plan. Subjective Patient intubated and ventilated, briefly discussed care plan with patient's who expressed his understanding. Review of Systems Review of Systems: Unobtainable due to endotracheal tube Physical Exam Constitutional: + ill appearing and + lethargic Eyes: PERRL, conjunctivae normal, anicteric sclerae Respiratory: normal respiratory effort, lungs clear to auscultation Cardiovascular: Rate/Rhythm: regular rhythm and + tachycardic Heart Sounds: no murmur Gastrointestinal (Abdomen): abdomen bandaged from X lap last night. Ostomy bag x 2 draining bloody discharge drain in place draining small amount <10 cc serosanguinous fluid. Bowel sounds present. Results & Data Vital Signs (Past 12 Hours) Vital Signs Temp Pulse Resp BP Pulse Ox 11/14/18 08:40 100 H 14 98 11/14/18 06:31 104 H 98 11/14/18 06:30 104 H 103/57 L 98 11/14/18 06:00 113 H 14 79/52 L 97 11/14/18 05:55 105 H 15 99 11/14/18 05:30 106 H 104/56 L 98 11/14/18 05:00 37.0 C 111 H 89/54 L 98 11/14/18 04:30 105 H 99/57 L 99 11/14/18 04:11 109 H 97/57 L 98 11/14/18 04:00 110 H 80/45 L 97 11/14/18 03:30 108 H 94/57 L 98 11/14/18 03:00 114 H 14 98/57 L 100 11/14/18 02:30 103 H 91/53 L 99 11/14/18 02:00 100 H 14 87/49 L 99 11/14/18 01:30 98 H 14 75/45 L 98 11/14/18 01:05 102 H 92/49 L 98 11/14/18 01:00 107 H 14 65/48 L 97 11/14/18 00:55 108 H 84/52 L 97 11/14/18 00:50 107 H 80/51 L 97 11/14/18 00:45 108 H 88/45 L 11/14/18 00:40 108 H 84/40 L 95 11/14/18 00:35 111 H 92/59 L 96 11/14/18 00:31 110 H 84/34 L 96 11/14/18 00:26 109 H 71/54 L 95 11/14/18 00:20 108 H 78/50 L 96 11/14/18 00:16 111 H 75/34 L 11/14/18 00:10 108 H 70/43 L 11/14/18 00:05 106 H 80/46 L 97 11/14/18 00:00 36.8 C 108 H 14 81/37 L 97 11/13/18 23:55 107 H 88/55 L 95 11/13/18 23:50 109 H 81/38 L 98 11/13/18 23:40 109 H 83/49 L 96 11/13/18 23:35 107 H 73/40 L 97 11/13/18 23:30 108 H 14 87/42 L 99 11/13/18 23:07 108 H 11/13/18 22:52 12 11/13/18 22:47 109 H 96/50 L 11/13/18 22:43 104 H 173/108 H 11/13/18 22:16 99 H 90/40 L 96 11/13/18 22:10 104 H 77/59 L 98 11/13/18 22:06 96 H 108/36 L 98 11/13/18 22:00 36.9 C 97 H 12 75/57 L 95 Critical Care Time Critical Care Time: Yes (85) Resident Activity Tracking Resident Involvement: Resident Care Provided Care Provided: Adult [facility]
[2018-11-14] MEDS: PANTOprazole 40 MG TAB PO SCH (09:44)
[2018-11-14] MEDS: ISOSORBIDE MONO EXTENDED REL 30 MG TABCR PO SCH (09:52)
[2018-11-14] MEDS: MIDAZOLAM HCL 1 MG/ML 2ML VIAL IV PRN ×2 (09:59→11:52)
--- NOTE | 2018-11-14 10:52 | Nephrology Consultation ---
Date of Consultation November 14, 2018 Assessment & Plan (1) Acute renal failure: -- Nonoliguric SHAZIA likely related to relative hypotension. Creatinine has been stable overnight at ~ 4.5 -- Hold Losartan, wean Levophed keeping MAP > 65 -- Renal US was negative for obstruction -- Recent urinalysis was negative for casts. Will repeat study -- Indications/benefits/risks/alternatives to HD discussed w/ today. He understands that dialysis may become necessary -- Volume status and electrolyte balance are acceptable. No acute indication for HD today (2) Stage III chronic kidney disease: -- Baseline creatinine 1.0 (3) Small bowel infarction: -- s/p exploratory lap w/ partial colectomy and ileostomy 11/13 (4) History of aortic valve replacement: (5) PMR (polymyalgia rheumatica): (6) S/P admission to ICU (intensive care unit): -- 30 min critical care time provided today. This was necessary to review records, examine patient and discuss plan of care w/ ICU team and patient's History of Present Illness Reason for Consultation: SHAZIA / CKD Requesting Physician: Dr. Patricia Attending Physician: Ruperto Joseph DO, FACS History of Present Illness Mrs. Ponce is an 83 year old white female who is seen at the request of Dr. Patricia for evaluation of SHAZIA/CKD. Patient was seen & examined in the ICU this morning. Plan of care was discussed w/ ICU team. Review of medical records this morning is summarized as follows: Mrs. Ponce's medical history is significant for ASCVD s/p CABG x 3, AVR 2016, CVA, LALA, depression, PMR requiring chronic steroid therapy, AODM, HTN and stage III CKD w/ baseline creatinine ~ 1.0. Her Geodetic Surveyor is Dr. Ricci. Mrs. Ponce had colon CA and underwent partial colectomy in the past. Recently she was diagnosed w/ recurrence at the anastamotic site. On 11/08/18 Mrs. Ponce underwent laparoscopic assisted partial colectomy w/ ileocolic reanastamosis. Post operative course was uncomplicated until the evening of 11/13/18 when medical service diagnosed hypotension and SHAZIA. Recommendation provided for transfer to ICU for pressor support and surgical reevaluation. Patient subsequently underwent exploratory laparotomy and was found to have distal small bowel obstruction and ischemia. Partial colectomy w/ ileostomy was performed and patient admitted to ICU for ongoing care. Ms. Ponce is currently alert on the ventilator. SaO2 is 98%. CXR is negative for overt CHF. ICU team hopes to extubate patient today. She remains on pressor support. UO has been ~ 1800 cc over last 24 hours. Serum creatinine remains stable at ~ 4.5. Allergies Allergy/AdvReac Type Severity Reaction Status Date / Time azithromycin AdvReac Intermediate Diarrhea Verified 11/07/18 07:12 cefadroxil AdvReac Intermediate Diarrhea Verified 11/07/18 07:12 clindamycin AdvReac Intermediate Diarrhea Verified 11/07/18 07:12 doxycycline AdvReac Intermediate Diarrhea Verified 11/07/18 07:12 levofloxacin AdvReac Intermediate Diarrhea Verified 11/07/18 07:12 metronidazole AdvReac Intermediate Diarrhea Verified 11/07/18 07:12 sulfamethoxazole AdvReac Intermediate Diarrhea Verified 11/07/18 07:12 [From Bactrim] trimethoprim [From Bactrim] AdvReac Intermediate Diarrhea Verified 11/07/18 07:12 amoxicillin AdvReac Mild diarrhea Verified 11/07/18 07:12 clavulanic acid AdvReac Mild diarrhea Verified 11/07/18 07:12 metformin AdvReac Mild Diarrhea Verified 11/07/18 07:12 sitagliptin AdvReac Mild diarreha Verified 11/07/18 07:12 Home Medications Home Medications Medication Instructions Recorded Confirmed Type Calcium 600 + D(3) 1 tab PO BID 02/15/18 11/07/18 History Novolog Flexpen U-100 Insulin 5 unit SUBCUT 1700 02/15/18 11/07/18 History Tresiba FlexTouch U-100 15 unit SUBCUT HS 02/15/18 11/07/18 History acetaminophen [Tylenol Extra 1,000 mg PO TID PRN 02/15/18 11/07/18 History Strength] cholecalciferol (vitamin D3) 2,000 unit PO BID 02/15/18 11/07/18 History [Vitamin D3] clopidogrel [Plavix] 75 mg PO HS 02/15/18 11/07/18 History diclofenac sodium [Voltaren] 2 g TOPICAL QID PRN 02/15/18 11/07/18 History duloxetine [Cymbalta] 30 mg PO 1200 02/15/18 11/07/18 History gabapentin 100 mg PO TID 02/15/18 11/07/18 History isosorbide mononitrate 30 mg PO QAM 02/15/18 11/07/18 History losartan 25 mg PO QAM 02/15/18 11/07/18 History metoprolol succinate [Toprol XL] 100 mg PO QPM 02/15/18 11/07/18 History nitroglycerin [Nitrostat] 0.4 mg SUBLINGUAL DIRECTED PRN 02/15/18 11/07/18 History prednisone 5 mg PO QAM 02/15/18 11/07/18 History rosuvastatin [Crestor] 40 mg PO QPM 02/15/18 11/07/18 History zolpidem [Ambien] 5 mg PO HS PRN 02/15/18 11/07/18 History loratadine 10 mg PO DAILY PRN 10/12/18 11/07/18 History triamcinolone acetonide [Nasacort] 1 spray INTRANASAL DAILY PRN 10/12/18 11/07/18 History pantoprazole [Protonix] 40 mg PO DAILY 11/07/18 11/07/18 History oxycodone-acetaminophen [Percocet] 1 - 2 tab PO Q4H PRN #15 tab MDD 6 11/09/18 Rx Patient History Medical History CAD (coronary artery disease) Severe, s/p CABG x 3 with AVR 03/2016, complicated by post-op CVA. Hypertension (Chronic) GERD (gastroesophageal reflux disease) Obstructive sleep apnea of adult cpap PMR (polymyalgia rheumatica) Prednisone daily Anxiety (Acute) Orthostatic hypotension (Acute) H/O malignant neoplasm of colon (Chronic) 2006--sx--"took 17 inches of colon, took appendix, took ovaries/fallopian tubes at same time" H/O: CVA (cerebrovascular accident) (Chronic) After CABG/AVR, 2015; residual weakness on right side. 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) Hearing deficit Kidney stones Osteoarthritis Peptic ulcer (02/05/11) Spinal stenosis Surgical History History of aortic valve replacement 03/18/2016 @ [facility] History of bilateral cataract extraction History of bilateral tubal ligation History of cholecystectomy History of colectomy 2007 History of colonoscopy History of dilatation and curettage History of esophagogastroduodenoscopy (EGD) History of foot surgery right foot--no hardware in place History of open reduction and internal fixation (ORIF) procedure right hip hardware in place History of tonsillectomy and adenoidectomy History of tooth extraction partial upper denture S/P CABG x 3 2015 @ [facility] [place] Status post incision and drainage sebaceous cyst Family History Brother Family history of diabetes mellitus Grandfather (Maternal) Family history of diabetes mellitus Grandmother (Maternal) Family hx of colon cancer Other No family history of adverse response to anesthesia Social History Preferred Language: Vietnamese Communication Ability: Effective Beliefs That Will Affect Care: None marital status: Current Living Situation: Spouse Feels Safe at Home: Yes Smoking Status: Never smoker Cigarettes Per Day: 0 Second Hand Exposure: Yes ( smoked) Hx Alcohol Use: No Hx Substance Use: No Review of Systems Review of Systems: Unobtainable due to endotracheal tube Physical Exam Constitutional: + ill appearing Eyes: PERRL, conjunctivae normal, anicteric sclerae Neck: R IJ TLC w/ clean dry dressing in place Respiratory: Auscultation: + bronchovesicular breath sounds Cardiovascular: Rate/Rhythm: regular rhythm and + tachycardic Extremities: no edema Gastrointestinal (Abdomen): midline incision w/ clean dry dressing. RLQ ostomy Neurologic: alert Results & Data Vital Signs (Past 12 Hours) Vital Signs Temp Pulse Resp BP Pulse Ox 11/14/18 08:40 100 H 14 98 11/14/18 06:31 104 H 98 11/14/18 06:30 104 H 103/57 L 98 11/14/18 06:00 113 H 14 79/52 L 97 11/14/18 05:55 105 H 15 99 11/14/18 05:30 106 H 104/56 L 98 11/14/18 05:00 37.0 C 111 H 89/54 L 98 11/14/18 04:30 105 H 99/57 L 99 11/14/18 04:11 109 H 97/57 L 98 11/14/18 04:00 110 H 80/45 L 97 11/14/18 03:30 108 H 94/57 L 98 11/14/18 03:00 114 H 14 98/57 L 100 11/14/18 02:30 103 H 91/53 L 99 11/14/18 02:00 100 H 14 87/49 L 99 11/14/18 01:30 98 H 14 75/45 L 98 11/14/18 01:05 102 H 92/49 L 98 11/14/18 01:00 107 H 14 65/48 L 97 11/14/18 00:55 108 H 84/52 L 97 11/14/18 00:50 107 H 80/51 L 97 11/14/18 00:45 108 H 88/45 L 11/14/18 00:40 108 H 84/40 L 95 11/14/18 00:35 111 H 92/59 L 96 11/14/18 00:31 110 H 84/34 L 96 11/14/18 00:26 109 H 71/54 L 95 11/14/18 00:20 108 H 78/50 L 96 11/14/18 00:16 111 H 75/34 L 11/14/18 00:10 108 H 70/43 L 11/14/18 00:05 106 H 80/46 L 97 11/14/18 00:00 36.8 C 108 H 14 81/37 L 97 11/13/18 23:55 107 H 88/55 L 95 11/13/18 23:50 109 H 81/38 L 98 11/13/18 23:40 109 H 83/49 L 96 11/13/18 23:35 107 H 73/40 L 97 11/13/18 23:30 108 H 14 87/42 L 99 11/13/18 23:07 108 H 11/13/18 22:52 12 Laboratory Results Laboratory Tests 02/27/18 11/13/18 11/13/18 11:22 11:45 22:14 WBC 7.25 Hgb 11.1 L Hct 33.8 L Plt Count 215 Sodium Potassium Chloride Carbon Dioxide BUN Creatinine Glucose Calcium Ionized Calcium Albumin Urine Color Dark Yellow Urine Appearance Cloudy A Urine pH 5.0 Ur Specific [place] 1.022 Urine Protein 1+ H Urine Glucose (UA) Trace H Urine Ketones Negative Urine Blood Negative Urine WBC (Auto) 1-5 Urine RBC (Auto) 0-4 U Hyaline Cast (Auto) 0 Protein/Creatinin Ratio 0.2 11/14/18 11/14/18 02:41 04:27 WBC Hgb Hct Plt Count Sodium 136 Potassium 4.1 Chloride 105 Carbon Dioxide 21 BUN 38 H Creatinine 4.48 H Glucose 145 H Calcium 6.5 L Ionized Calcium 1.11 L Albumin 1.8 L Urine Color Urine Appearance Urine pH Ur Specific [place] Urine Protein Urine Glucose (UA) Urine Ketones Urine Blood Urine WBC (Auto) Urine RBC (Auto) U Hyaline Cast (Auto) Protein/Creatinin Ratio Diagnostic Findings CXR 11/14: Endotracheal tube overlies the midline, 4.2 cm superior to the ashia. Enteric tube distal tip terminates over the left upper quadrant, likely within the region of the mid gastric lumen. Prior median sternotomy with cardiac valvular prosthesis. Calcification the thoracic aortic arch. Stable positioning of right internal jugular central venous catheter. No pneumothorax. Trace pleural effusions with minimal bibasilar opacities. Mild right hemidiaphragmatic elevation is unchanged. Degenerative changes of the shoulders and spine. Renal US 11/13: Right kidney: Normal echogenicity of renal parenchyma. Right kidney measures 10.3 cm. No hydronephrosis. Either trace perinephric fluid is present versus small exophytic simple cyst. Left kidney: Normal echogenicity of renal parenchyma. Left kidney measures 11.2 cm. No hydronephrosis. Simple 1.1 cm cyst in the interpolar region. Bladder: Normal. Bilateral ureteral jets present.
[2018-11-14 12:31] LABS: iSTAT Allen Test Pass; iSTAT Arterial Blood Gas HCO3 19 meg/L (19-24); iSTAT Arterial Blood Gas pCO2 46 mmHg (35-46); iSTAT Arterial Blood Gas pH 7.23 (7.35-7.45); iSTAT Carbon Dioxide 20 mEq/l (24-31); iSTAT FiO2 100 %; iSTAT Site Art Line
[2018-11-14 12:31] LABS: iSTAT Arterial Blood Gas HCO3 20 meg/L (19-24); iSTAT Arterial Blood Gas pCO2 42 mmHg (35-46); iSTAT Arterial Blood Gas pH 7.28 (7.35-7.45); iSTAT Carbon Dioxide 21 mEq/l (24-31); iSTAT FiO2 80 %; iSTAT Site Art Line
[2018-11-14 12:31] LABS: iSTAT Arterial Blood Gas HCO3 19 meg/L (19-24); iSTAT Arterial Blood Gas pCO2 40 mmHg (35-46); iSTAT Arterial Blood Gas pH 7.28 (7.35-7.45); iSTAT Carbon Dioxide 20 mEq/l (24-31); iSTAT Site Art Line
[2018-11-14 13:11] LABS: iSTAT Arterial Blood Gas HCO3 19 meg/L (19-24); iSTAT Arterial Blood Gas pCO2 36 mmHg (35-46); iSTAT Arterial Blood Gas pH 7.32 (7.35-7.45); iSTAT Carbon Dioxide 20 mEq/l (24-31); iSTAT FiO2 40 %; iSTAT Site Art Line
[2018-11-14 13:31] LABS: Appearance Urine Cloudy (Clear); Bacteria Urine Automated Negative (Negative); Bilirubin Urine Negative (Negative); Blood Urine 1+ (Negative); Color Urine Yellow; Epithelial Cell Urine Auto 20-30 /lpf (0-5); Glucose Urine UA Trace (Negative); Ketones Urine Negative (Negative); Leukocyte Esterase Urine Negative (Negative); Nitrite Urine Negative (Negative); Protein Urine 1+ (Negative); Specific Gravity Urine 1.021 (1.000-1.030); Urobilinogen Urine Negative (Negative)
[2018-11-14 14:53] LABS: BUN Creatinine Ratio 8.1 (10-20); Calcium 6.8 mg/dl (8.5-10.1); Creatinine Clr Calc Pharmacy 9.9 ml/min; Est GFR (African American) 8.9; Est GFR (Non-African American) 7.7; Potassium 5.2 mmol/L (3.5-5.1)
--- NOTE | 2018-11-14 17:43 | Hospitalist Progress Note ---
Date of Service November 14, 2018 Assessment & Plan (1) S/P colectomy: (2) Recurrent adenocarcinoma of colorectal region: - S/p hemicolectomy in 2007; s/p partial colectomy on 11/07 for recurrent cancer - urgent Laparotomy with small bowel resection, ileocolic resection, mucous fistula, ileostomy and abdominal washout 11/13 due to multiple small bowel infarcts and sepsis with subsequent ICU transfer. Extubated 11/14. Remains on pressor support - Increased abd distention and pain -- intiated PPN 11/13. - Pain management (avoid Morphine due to SHAZIA) & DVT ppx per primary team. - Reglan q6hr scheduled for nausea; Zofran and Phenergan prn. - Continue Zosyn (3) History of aortic valve replacement: - AVR with Bioprosthetic (2015). - Most recent TTE in Jul 2017 showed well functioning valve. (4) Acute respiratory failure with hypoxia: - Echo 11/13 with decreased EF 45-50% with mild global hypokinesis and elevated right ventricular pressures - Remained intubated after surgery and transfer to ICU 11/13, extubated 11/14 (5) Acute renal failure: - Creatinine continues to rise, 4.89 today , baseline is ~0.80. - May be ATN in setting of hypotensive episodes vs. dehydration -- FENa indicates pre-renal state. Likely due to sepsis - Urine sodium was 36 -- indicates pre-renal/dehydration; U/a was negative for cast cells -- not likely severe ATN. - Renal US negative for obstruction, did show ascites. - Figueroa placed to monitor accurate I/O's. - Continue IVF, PPN per top lift scourer - Holding all nephrotoxic agents, including ARB. - Nephrology consulted - no indication for HD today (6) History of CVA (cerebrovascular accident): - Occurred following surgery (AVR). - Continue Plavix, statin as prescribed. (7) Diabetes: - Hemoglobin A1C was 7.6. - SSI coverage ordered -- BG well controlled. (8) CAD (coronary artery disease): - CAD S/P CABG x 3. - Follows with [facility] [place] [facility], had pre-operative assessment/clearance -Holding isosorbide 30 mg daily, and continuing rosuvastatin 40 mg daily, Plavix 75 mg daily. - Holding Losartan in setting of SHAZIA; holding metoprolol due to hypotension. (9) GERD (gastroesophageal reflux disease): Supervising Physician Co-Signing Physician Notes METAL LATHER supervision Note: I did not personally see or examine the patient today, but I verified all schneider points of LUIS Flores's assessment and plan with the following exceptions/additions: Chart reviewed. Patient is extubated now and still remains in critical condition Appreciate top lift scourer management Subjective Ms. Ponce has been extubated. She denies pain. She is having a bit of a hard time moving secretions as her cough is very weak. She remains on pressors. Review of Systems Review of Systems: All systems reviewed & are unremarkable except as noted in HPI & below Physical Exam Physical Exam: General: fatigued Eyes: normal inspection, PERLL Respiratory: chest non tender, course upper airways, no respiratory distress, no accessory muscle use Cardiac: irregular rate and rhythm, no rub or gallop, no murmur, no edema, no jvd GI/: hypoactive bowel sounds, no abd pain or tenderness, soft, non distended Extremities: normal range of motion, normal strength, non tender Neuro/Psych: drowsy and oriented, normal mood and affect Skin: normal color, dry Results & Data Vital Signs (Past 12 Hours) Vital Signs Temp Pulse Resp BP Pulse Ox 11/14/18 16:01 116 H 95 11/14/18 16:00 37.8 C H 112 H 115/64 94 11/14/18 15:01 113 H 108/56 L 90 11/14/18 14:31 112 H 96 11/14/18 14:30 112 H 107/65 93 11/14/18 14:00 109 H 105/62 96 11/14/18 13:00 112 H 114/64 95 11/14/18 12:28 106 H 15 98 11/14/18 12:00 38.5 C H 105 H 17 93/40 L 95 11/14/18 11:05 106 H 15 98 11/14/18 11:00 102 H 15 102/59 L 96 11/14/18 10:00 109 H 15 103/57 L 95 11/14/18 09:00 110 H 16 135/57 L 93 11/14/18 08:40 100 H 14 98 11/14/18 08:00 37.9 C H 102 H 14 111/62 98 11/14/18 07:00 103 H 15 102/66 98 11/14/18 06:31 104 H 98 11/14/18 06:30 104 H 103/57 L 98 11/14/18 06:00 113 H 14 79/52 L 97 11/14/18 05:55 105 H 15 99
[2018-11-14] MEDS: ACETAMINOPHEN 1,000 MG/100 ML VIAL IV PRN (17:52)
[2018-11-14] MEDS ORDERED: NORMOSOL-R 250 ML IV ONE (19:13)
[2018-11-14] MEDS: ROSUVASTATIN CALCIUM 20 MG TAB PO SCH (20:31)
[2018-11-14] MEDS ORDERED: ALBUMIN 25% 50 ML IV ONE (20:34)
[2018-11-14 20:44] LABS: BUN Creatinine Ratio 8.1 (10-20); Creatinine Clr Calc Pharmacy 9.2 ml/min; Est GFR (African American) 8.2; Potassium 5.1 mmol/L (3.5-5.1)
[2018-11-14] MEDS ORDERED: INSULIN PROTOCOL GOAL RANGE ONE (23:59)
[2018-11-14] MEDS ORDERED: SEVERE STRESS LEVEL ONE (23:59)
[2018-11-15] MEDS: NORMOSOL-R 1,000 ML IV SCH ×3 (00:06→18:13)
[2018-11-15] MEDS ORDERED: NovoLIN-R BOLUS FROM BAG IV ONE (00:15)
[2018-11-15] MEDS: INSULIN REGULAR 250 UNITS in SODIUM CHLORIDE 0.9% 247.5 ML IV SCH (00:16)
[2018-11-15] MEDS: NOREPINEPHRINE BIT INJ 8 MG in DEXTROSE 5% 500 ML IV SCH ×2 (01:33→20:21)
[2018-11-15] MEDS: HYDROCORTISONE SOD 50 MG in SYRINGE 0 ML IV SCH ×3 (01:34→16:58)
[2018-11-15] MEDS: METOCLOPRAMIDE HCL INJ 5 MG/ML 2 ML VIAL IV SCH ×4 (01:35→20:25)
[2018-11-15] MEDS: PIPERACILLIN/TAZOBACTAM 3.375 GM in DEXTROSE 5% 100 ML IV SCH ×2 (01:36→14:26)
[2018-11-15 05:16] LABS: Hematocrit (blood only) 29.9 % (37-47); Mean Corpuscular Hgb Conc 33.4 g/dL (32-36); Mean Corpuscular Volume 91.2 fL (80-100); Platelet Count 218 K/uL (130-400); RDW Coefficient of Variation 15.4 % (11.5-14.5); RDW Standard Deviation 51.8 fL (36.4-46.3); Red Blood Count 3.28 M/uL (4.2-5.4); White Blood Count 21.13 K/uL (4.8-10.8)
[2018-11-15 05:50] LABS: iSTAT Arterial Blood Gas HCO3 20 meg/L (19-24); iSTAT Arterial Blood Gas pCO2 47 mmHg (35-46); iSTAT Arterial Blood Gas pH 7.23 (7.35-7.45); iSTAT Carbon Dioxide 21 mEq/l (24-31); iSTAT Site Art Line
--- NOTE | 2018-11-15 05:55 | Progress Note ---
Date of Service November 15, 2018 Assessment & Plan (1) Small bowel infarction: tolerating extubation for now, signif positive fluid balance creat increased, will d/c NG- may help control pulm secretions, npo exc ice- ppn/tpn when possible on IV steroids- may add to incr wbc, cont IV atbx Subjective breathing on own, nasal canula, NG min output ur output 70 cc/ 8 hrs, cr 5.2 inc temp has come down, on low dose levo Physical Exam Physical Exam: responsive, some tachypnea, upper airway secretions abd- soft, decr bs, stomas viable extrem warm Results & Data Vital Signs (Past 12 Hours) Vital Signs Temp Pulse Resp BP Pulse Ox 11/15/18 04:00 36.9 C 97 H 16 100/78 95 11/15/18 03:00 98 H 16 131/74 96 11/15/18 02:00 97 H 16 126/67 95 11/15/18 01:00 108 H 16 135/67 93 11/15/18 00:00 36.8 C 103 H 20 99/63 L 96 11/14/18 22:31 108 H 14 96 11/14/18 22:30 104 H 13 110/64 94 11/14/18 22:01 103 H 13 96 11/14/18 22:00 101 H 18 99/60 L 95 11/14/18 21:31 106 H 98 11/14/18 21:30 110 H 110/72 97 11/14/18 21:01 102 H 15 95 11/14/18 21:00 101 H 16 96/55 L 95 11/14/18 20:31 110 H 15 95 11/14/18 20:30 37.0 C 108 H 19 84/52 L 93 11/14/18 20:03 122 H 16 83/52 L 95 11/14/18 20:01 122 H 17 93/45 L 95 11/14/18 20:00 117 H 16 93 11/14/18 19:31 116 H 15 80/62 L 96 11/14/18 19:00 126 H 18 91 11/14/18 18:32 109 H 11/14/18 18:31 113 H 19 85/55 L 94 11/14/18 18:00 119 H 21 99/66 L 95
[2018-11-15 06:02] LABS: BUN Creatinine Ratio 8.4 (10-20); Calcium 6.4 mg/dl (8.5-10.1); Est GFR (African American) 7.9; Est GFR (Non-African American) 6.9; Magnesium 2.3 mg/dl (1.8-2.4); Phosphorus 5.8 mg/dl (2.5-4.9); Potassium 5.1 mmol/L (3.5-5.1)
--- NOTE | 2018-11-15 06:10 | Critical Care Progress Note ---
Date of Service November 15, 2018 Assessment & Plan (1) S/P admission to ICU (intensive care unit): Reason Critically Ill: 83-year-old female with recent colectomy for recurrent adenocarcinoma of colon, who presented to the ICU postoperatively following an ex-lap which revealed multiple small bowel infarcts and patient underwent small bowel resect, ileocolic resection, mucous fistula, and ileostomy. Neuro - RASS -2 Somnolent, rousable but not up for having a conversation with me today, will continue to monitor Duloxetine: Holding Gabapentin: Holding in the setting of acute kidney injury Ambien: Holding Cardiac - AVR/CAD: Status post AVR and CABG x3 in 2016, continue Plavix Hypertension: Losartan held for renal failure, -Holding to hypertensive medications secondary to sepsis associated hypotension Sepsis associated hypotension: Improving - Still requiring levophed to maintain pressure .08 mcg/kg/min to maintain MAP >65 - Echo obtained showing mild reduction in LV function (currently 45-50% EF) and stable right ventricular hypertension. No wall motion abnormalities -Wean pressors as tolerated Prolonged QTC -Discontinuing Zofran -Avoid QT prolonging medications Respiratory - - Extubated yesterday, tolerating nasal cannula 4 L currently GI - Colorectal adenocarcinoma-S/P partial colectomy with ileocolic anastomosis 11/07, developed small bowel infarcts this a.m. and required small bowel resection and ileocolic resection, mucous fistula, ileostomy. -We will discuss with general surgery etiology evidence of ischemia: Relative hypotension versus A. fib (no evidence on night monitor) -OG tube inserted, intermittent low wall suction -N.p.o. -Lactate 1.3 postop has continued to trend down 1.0 most recently -Reglan discontinue after 48 hours Hypoalbuminemia -#1 treatment priority at this time is sepsis and infection, second treatment priority would be acute kidney injury with history of CHF -Judicious use of fluids, holding TPN/PPN until clearly outside of infectious concerns GI prophylaxis: Discontinuing Protonix (inability to cross) convert to Pepcid RENAL/LYTES - Acute renal failure/metabolic acidosis: Patient developed SHAZIA on CKD and has become oliguric, likely secondary to hypotension as Fena score indicates prerenal -Nephrology on board, Dr. Cummins believes likely secondary to relative hypotension -Maintaining pressure with pressors at moment, judicious use of IV fluids, tr cely not to fluid overload patient but trying to MAP greater than 65. - Family consented for hemodialysis should it become necessary. -Renal ultrasound showed no obstruction, few renal cyst, ascites -Holding losartan, avoiding nephrotoxic agents -Monitor with routine BMPs - Most recent BMP showing worsening creatinine no major changes in electrolytes yet, sodium mildly decreased potassium at upper limit of normal - Figueroa for strict I's and O's, currently making urine at .11 ml/kg/hour Will continue to monitor patient's renal function with regards to need for dialysis ENDO - DM: On sliding scale at home, hemoglobin A1c 7.6 -ICU hypoglycemic protocol, sliding scale HEME - Intraoperative EBL of 50, H&H stable, monitor with routine CBCs White count continuing to elevate since surgery, patient with active sepsis and on steroids ID - Blood cultures x2 and urine culture pending, continue empiric Zosyn LINES/IV ACCESS - Right IJ: Resecured by staff this morning CVL, ETT 21 cm at lips, OG tube, right radial A-line DVT PROPHYLAXIS - Subcu heparin, SCDs Present on Admission?: No (2) Small bowel infarction: Present on Admission?: No (3) Acute respiratory failure with hypoxia: Present on Admission?: No (4) Stage III chronic kidney disease: Present on Admission?: Yes (5) Acute renal failure: Present on Admission?: No (6) S/P colectomy: (7) DVT prophylaxis: (8) History of CVA (cerebrovascular accident): (9) Recurrent adenocarcinoma of colorectal region: (10) Acute hypoxemic respiratory failure: Present on Admission?: No (11) Atrial fibrillation with RVR: Present on Admission?: No (12) Post-operative state: Present on Admission?: No Supervising Physician Co-Signing Physician Notes Dr. Willett was resident physician during care of patient. I separately evaluated patient for schneider portions of the history and the exam. I was present during the critical portion of medical decision making, and I discussed the case with the resident. I generally agree with the findings and plan. Patient was discussed in multidisciplinary rounds and the case was discussed with Dr. Livingston. I have personally spent 35 minutes of critical care time in the direct management of this patient. This is a life/limb threatening event. This includes time spent evaluating patient, direct bedside care, chart review, placing orders, interpretation of diagnostic studies, discussion with consultants, patient, and/or family members regarding treatment decisions, as well as other required patient management activities. This time is exclusive of all separately billable procedures, and teaching time and separate from and in addition to any other critical care service time. Subjective Resting, NG tube in place, extubated on nasal cannula Review of Systems Review of Systems: Unobtainable due to reduced consciousness Physical Exam Constitutional: + ill appearing and + lethargic Eyes: PERRL, conjunctivae normal, anicteric sclerae Respiratory: normal respiratory effort, lungs clear to auscultation Cardiovascular: Rate/Rhythm: regular rate and regular rhythm Heart Sounds: normal S1 and normal S2; no click, no gallop, no murmur and no cardiac rub Gastrointestinal (Abdomen): Abdomen soft, large bandage across abdomen from exploratory laparotomy. Two ostomy bags draining bloody discharge, one SANDY drain draining serosanguinous discharge. Bowel sounds present Neurologic: Somnolent, eyes equal round and reactive Results & Data Vital Signs (Past 12 Hours) Vital Signs Temp Pulse Resp BP Pulse Ox 11/15/18 04:00 36.9 C 97 H 16 100/78 95 11/15/18 03:00 98 H 16 131/74 96 11/15/18 02:00 97 H 16 126/67 95 11/15/18 01:00 108 H 16 135/67 93 11/15/18 00:00 36.8 C 103 H 20 99/63 L 96 11/14/18 22:31 108 H 14 96 11/14/18 22:30 104 H 13 110/64 94 11/14/18 22:01 103 H 13 96 11/14/18 22:00 101 H 18 99/60 L 95 11/14/18 21:31 106 H 98 11/14/18 21:30 110 H 110/72 97 11/14/18 21:01 102 H 15 95 11/14/18 21:00 101 H 16 96/55 L 95 11/14/18 20:31 110 H 15 95 11/14/18 20:30 37.0 C 108 H 19 84/52 L 93 11/14/18 20:03 122 H 16 83/52 L 95 11/14/18 20:01 122 H 17 93/45 L 95 11/14/18 20:00 117 H 16 93 11/14/18 19:31 116 H 15 80/62 L 96 11/14/18 19:00 126 H 18 91 11/14/18 18:32 109 H 11/14/18 18:31 113 H 19 85/55 L 94 11/14/18 18:00 119 H 21 99/66 L 95 Critical Care Time Total Critical Care Time: 35
[2018-11-15] MEDS ORDERED: NORMOSOL-R 500 ML IV SCH (08:30)
[2018-11-15] MEDS: INSULIN ASPART 100 UNITS/ML 3 ML PEN SC SCH ×4 (10:01→21:29)
[2018-11-15] MEDS: CLOPIDOGREL BISULFATE 75 MG TAB PO SCH (10:01)
[2018-11-15] MEDS: FAMOTIDINE 20 MG in SYRINGE 3 ML IV SCH (10:03)
[2018-11-15] MEDS: HEPARIN SOD 5,000 UNIT/0.5 ML VIAL SQ SCH ×2 (10:03→21:29)
--- NOTE | 2018-11-15 10:14 | Nephrology Progress Note ---
Date of Service November 15, 2018 Assessment & Plan (1) Acute renal failure: -- Nonoliguric SHAZIA likely related to relative hypotension. Creatinine has been stable overnight at ~ 4.5 -- Hold Losartan, wean Levophed keeping MAP > 65 -- Renal US was negative for obstruction -- Urinalysis revealed only hyaline casts c/w low flow state -- Volume status and electrolyte balance are acceptable. No acute indication for HD today. Will reassess in am (2) Stage III chronic kidney disease: -- Baseline creatinine 1.0 (3) Small bowel infarction: -- s/p exploratory lap w/ partial colectomy and ileostomy 11/13 (4) History of aortic valve replacement: (5) PMR (polymyalgia rheumatica): (6) S/P admission to ICU (intensive care unit): -- 30 min critical care time provided today. This was necessary to review records, examine patient and discuss plan of care w/ ICU team and patient's Subjective Mrs. Ponce was seen & examined in the ICU this morning. Plan of care was reviewed w/ the ICU team. Mrs. Ponce was extubated yesterday. She is breathing comfortably on O2 at 4L/min NC. She remains on Levophed for BP support. UO was ~ 700 cc last 24 hours Review of Systems Constitutional: no fever Respiratory: no dyspnea Cardiovascular: no chest pain Gastrointestinal: + abdominal pain (due to recent surgery) Physical Exam Constitutional: + ill appearing Eyes: PERRL, conjunctivae normal, anicteric sclerae Respiratory: Auscultation: + bronchovesicular breath sounds Cardiovascular: Rate/Rhythm: regular rhythm and + tachycardic Extremities: no edema Gastrointestinal (Abdomen): clean surgical dressing in place. No BS. Results & Data Vital Signs (Past 12 Hours) Vital Signs Temp Pulse Resp BP Pulse Ox 11/15/18 05:00 92 H 18 110/71 97 11/15/18 04:00 36.9 C 97 H 16 100/78 95 11/15/18 03:00 98 H 16 131/74 96 11/15/18 02:00 97 H 16 126/67 95 11/15/18 01:00 108 H 16 135/67 93 11/15/18 00:00 36.8 C 103 H 20 99/63 L 96 11/14/18 22:31 108 H 14 96 11/14/18 22:30 104 H 13 110/64 94 Laboratory Results Laboratory Tests 11/14/18 11/14/18 11/15/18 02:41 13:00 04:31 WBC 21.13 H Hgb 10.0 L Hct 29.9 L Plt Count 218 Sodium Potassium Chloride Carbon Dioxide BUN Creatinine Glucose Calcium Albumin 1.8 L Urine Color Yellow Urine Appearance Cloudy A Urine pH 5.0 Ur Specific [place] 1.021 Urine Protein 1+ H Urine Glucose (UA) Trace H Urine Ketones Negative Urine Blood 1+ H Urine Nitrite Negative Ur Leukocyte Esterase Negative Urine WBC (Auto) 10-30 H Urine RBC (Auto) 5-10 H U Hyaline Cast (Auto) 1-5 U Epithel Cells (Auto) 20-30 H 11/15/18 04:31 WBC Hgb Hct Plt Count Sodium 132 L Potassium 5.1 Chloride 100 Carbon Dioxide 21 BUN 45 H Creatinine 5.38 H* Glucose 152 H Calcium 6.4 L Albumin Urine Color Urine Appearance Urine pH Ur Specific [place] Urine Protein Urine Glucose (UA) Urine Ketones Urine Blood Urine Nitrite Ur Leukocyte Esterase Urine WBC (Auto) Urine RBC (Auto) U Hyaline Cast (Auto) U Epithel Cells (Auto)
--- NOTE | 2018-11-15 12:42 | Hospitalist Progress Note ---
Date of Service November 15, 2018 Assessment & Plan (1) Sepsis associated hypotension: - Related to small bowel infarcts; required upgrade to ICU on 11/13/18. - Continue pressor support. - Stress dose steroids with Hydrocortisone 50 mg IV q8hr. - UC from 11/13 is negative; blood cultures are negative to date. - Continue Zosyn IV for empiric coverage. - Echo with mild reduction in LV function. (2) Small bowel infarction: - S/p urgent laparotomy with small bowel resection, ileocolic resection, mucous fistula, ileostomy and abdominal washout on 11/13 due to multiple small infarcts. - [employer] and general surgery following. - Continue Zosyn for empiric coverage. - NPO except meds; start PPN when possible. - Pain control per surgery team. - DVT ppx with Heparin 5,000 units q12hr. (3) Recurrent adenocarcinoma of colorectal region: - S/p hemicolectomy in 2007; s/p partial colectomy on 11/07 for recurrent cancer followed by urgent laparotomy as noted above. - Primary management per surgery team. (4) Acute respiratory failure with hypoxia: - Echo 11/13 with decreased EF 45-50% with mild global hypokinesis and elevated right ventricular pressures. - Now extubated, stable on 4L via NC. (5) Acute renal failure: - Creatinine continues to rise, 5.38 this morning. - May be related to hypotensive episodes; U/a was negative for hyaline casts. - Renal US was negative for obstruction. - Figueroa for accurate I/Os; monitor daily weights. - Nephrology following, evaluate daily to determine if patient will eventually require HD. - Holding all nephrotoxic agents, including home ARB and gabapentin. (6) Stage III chronic kidney disease: - Renally dose all meds. (7) Diabetes: - Hemoglobin A1C was 7.6. - Glucose management per ICU team -- currently on insulin drip. (8) CAD (coronary artery disease): - CAD S/P CABG x 3. - Follows with [facility], had pre-operative assessment/clearance. - Continue statin and plavix as prescribed. - Holding Imdur and Metoprolol due to hypotension. (9) History of aortic valve replacement: - AVR with Bioprosthetic (2016). - Well functioning per echo. (10) Hypertension: - Holding ARB due to SHAZIA and hypotension. - Beta jaron and Imdur also on hold. (11) Obstructive sleep apnea of adult: - Pt. uses CPAP qhs. (12) PMR (polymyalgia rheumatica): - On Prednisone 5 mg daily at home -- currently receiving stress dose steroids, hydrocortisone 50 mg IV q8hr. (13) Depression with anxiety: - Holding home Cymbalta. (14) History of CVA (cerebrovascular accident): - Occurred following surgery (AVR). - Continue Plavix, statin as prescribed. (15) GERD (gastroesophageal reflux disease): - Famotidine 20 mg IV qAM. (16) DVT prophylaxis: - Heparin subQ q12hr. Dispo: ICU status, will continue to follow. Supervising Physician Co-Signing Physician Notes PA Supervision Note: I did not personally see or examine the patient today, but I verified all schneider points of NEAL Ayala's assessment and plan with the following exceptions/additions: None Subjective Pt. is fatigued but improving overall. Still requiring pressor support and O2 via NC. HR increased with ambulation -- increased to 150's after moving from chair to bed this afternoon. Amiodarone drip is ordered. Creatinine remains elevated, nephro following. May require HD if no improvement over next few days. Very minimal urine output. Review of Systems Review of Systems: All systems reviewed & are unremarkable except as noted in HPI & below Constitutional: + fatigue, + weakness and + anorexia; no fever and no chills Respiratory: + dyspnea and + dyspnea on exertion; no cough and no wheezing Cardiovascular: no chest pain, no palpitations and no edema Gastrointestinal: no abdominal pain and no nausea Genitourinary: + decreased urination Musculoskeletal: no back pain and no joint pain Integumentary: no non-healing lesions Allergy / Immunological: no rash Physical Exam Physical Exam: General: Resting comfortably HEENT: NC/AT; PERRLA with EOMI; [place] conjunctiva, MMM. Neck: Supple and nontender Cardiac: Tachycardic, irregular. Lungs: 4L via NC; diminished throughout. Abdomen: Bowel hypoactive throughout Extremities: Warm. No edema present Neuro: No focal weakness Skin: No rash Results & Data Vital Signs (Past 12 Hours) Vital Signs Temp Pulse Resp BP Pulse Ox 11/15/18 05:00 92 H 18 110/71 97 11/15/18 04:00 36.9 C 97 H 16 100/78 95 11/15/18 03:00 98 H 16 131/74 96 11/15/18 02:00 97 H 16 126/67 95 11/15/18 01:00 108 H 16 135/67 93 Laboratory Results 11/15/18 11/15/18 11/15/18 Range/Units 11:25 10:16 07:37 WBC (4.8-10.8) K/uL RBC (4.2-5.4) M/uL Hgb (12.0-16.0) g/dL Hct (37-47) % MCV (80-100) fL MCH (25-34) pg MCHC (32-36) g/dL RDW Std Deviation (36.4-46.3) fL RDW Coeff of David (11.5-14.5) % Plt Count (130-400) K/uL MPV (7.4-10.4) fL Sample Site POC pH (7.35-7.45) POC pCO2 (35-46) mmHg POC pO2 (80-95) mmHg POC HCO3 (19-24) mary/L POC Total CO2 (24-31) mEq/l POC Base Excess (-9-1.8) mary/L POC ABG O2 Sat (90-95) % Sree Test O2 Delivery Device POC FiO2 % PEEP Sodium (136-145) mmol/L Potassium (3.5-5.1) mmol/L Chloride (98-107) mmol/L Carbon Dioxide (21-32) mmol/L Anion Gap (3-11) BUN (7-18) mg/dl Creatinine (0.6-1.2) mg/dl Est Cr Clr Drug Dosing ml/min Est GFR ( Amer) Est GFR (Non-Af Amer) BUN/Creatinine Ratio (10-20) Glucose (70-99) mg/dl POC Glucose (other) 108 H 95 110 H (70-99) mg/dl Calcium (8.5-10.1) mg/dl Phosphorus (2.5-4.9) mg/dl Magnesium (1.8-2.4) mg/dl Urine Color Urine Appearance (Clear) Urine pH (4.5-7.5) Ur Specific [place] (1.000-1.030) Urine Protein (Negative) Urine Glucose (UA) (Negative) Urine Ketones (Negative) Urine Blood (Negative) Urine Nitrite (Negative) Urine Bilirubin (Negative) Urine Urobilinogen (Negative) Ur Leukocyte Esterase (Negative) Urine WBC (Auto) (0-5) /hpf Urine RBC (Auto) (0-4) /hpf U Hyaline Cast (Auto) (0-5) /lpf U Epithel Cells (Auto) (0-5) /lpf Urine Bacteria (Auto) (Negative) Urine Yeast (None Prsent) 11/15/18 11/15/18 11/15/18 Range/Units 05:43 05:36 04:31 WBC (4.8-10.8) K/uL RBC (4.2-5.4) M/uL Hgb (12.0-16.0) g/dL Hct (37-47) % MCV (80-100) fL MCH (25-34) pg MCHC (32-36) g/dL RDW Std Deviation (36.4-46.3) fL RDW Coeff of David (11.5-14.5) % Plt Count (130-400) K/uL MPV (7.4-10.4) fL Sample Site Art Line POC pH 7.23 L (7.35-7.45) POC pCO2 47 H (35-46) mmHg POC pO2 105 H (80-95) mmHg POC HCO3 20 (19-24) mary/L POC Total CO2 21 L (24-31) mEq/l POC Base Excess -8.0 (-9-1.8) mary/L POC ABG O2 Sat 97.0 H (90-95) % Sree Test NA O2 Delivery Device Cannula POC FiO2 % PEEP Sodium (136-145) mmol/L Potassium (3.5-5.1) mmol/L Chloride (98-107) mmol/L Carbon Dioxide (21-32) mmol/L Anion Gap (3-11) BUN (7-18) mg/dl Creatinine (0.6-1.2) mg/dl Est Cr Clr Drug Dosing ml/min Est GFR ( Amer) Est GFR (Non-Af Amer) BUN/Creatinine Ratio (10-20) Glucose (70-99) mg/dl POC Glucose (other) 145 H 161 H (70-99) mg/dl Calcium (8.5-10.1) mg/dl Phosphorus (2.5-4.9) mg/dl Magnesium (1.8-2.4) mg/dl Urine Color Urine Appearance (Clear) Urine pH (4.5-7.5) Ur Specific [place] (1.000-1.030) Urine Protein (Negative) Urine Glucose (UA) (Negative) Urine Ketones (Negative) Urine Blood (Negative) Urine Nitrite (Negative) Urine Bilirubin (Negative) Urine Urobilinogen (Negative) Ur Leukocyte Esterase (Negative) Urine WBC (Auto) (0-5) /hpf Urine RBC (Auto) (0-4) /hpf U Hyaline Cast (Auto) (0-5) /lpf U Epithel Cells (Auto) (0-5) /lpf Urine Bacteria (Auto) (Negative) Urine Yeast (None Prsent) 11/15/18 11/15/18 11/15/18 Range/Units 04:31 04:31 03:38 WBC 21.13 H (4.8-10.8) K/uL RBC 3.28 L (4.2-5.4) M/uL Hgb 10.0 L (12.0-16.0) g/dL Hct 29.9 L (37-47) % MCV 91.2 (80-100) fL MCH 30.5 (25-34) pg MCHC 33.4 (32-36) g/dL RDW Std Deviation 51.8 H (36.4-46.3) fL RDW Coeff of David 15.4 H (11.5-14.5) % Plt Count 218 (130-400) K/uL MPV 10.0 (7.4-10.4) fL Sample Site POC pH (7.35-7.45) POC pCO2 (35-46) mmHg POC pO2 (80-95) mmHg POC HCO3 (19-24) mary/L POC Total CO2 (24-31) mEq/l POC Base Excess (-9-1.8) mary/L POC ABG O2 Sat (90-95) % Sree Test O2 Delivery Device POC FiO2 % PEEP Sodium 132 L (136-145) mmol/L Potassium 5.1 (3.5-5.1) mmol/L Chloride 100 (98-107) mmol/L Carbon Dioxide 21 (21-32) mmol/L Anion Gap 11.0 (3-11) BUN 45 H (7-18) mg/dl Creatinine 5.38 H* (0.6-1.2) mg/dl Est Cr Clr Drug Dosing 9.0 ml/min Est GFR ( Amer) 7.9 Est GFR (Non-Af Amer) 6.9 BUN/Creatinine Ratio 8.4 L (10-20) Glucose 152 H (70-99) mg/dl POC Glucose (other) 173 H (70-99) mg/dl Calcium 6.4 L (8.5-10.1) mg/dl Phosphorus 5.8 H (2.5-4.9) mg/dl Magnesium 2.3 (1.8-2.4) mg/dl Urine Color Urine Appearance (Clear) Urine pH (4.5-7.5) Ur Specific [place] (1.000-1.030) Urine Protein (Negative) Urine Glucose (UA) (Negative) Urine Ketones (Negative) Urine Blood (Negative) Urine Nitrite (Negative) Urine Bilirubin (Negative) Urine Urobilinogen (Negative) Ur Leukocyte Esterase (Negative) Urine WBC (Auto) (0-5) /hpf Urine RBC (Auto) (0-4) /hpf U Hyaline Cast (Auto) (0-5) /lpf U Epithel Cells (Auto) (0-5) /lpf Urine Bacteria (Auto) (Negative) Urine Yeast (None Prsent) 11/15/18 11/15/18 11/14/18 Range/Units 02:27 01:27 20:04 WBC (4.8-10.8) K/uL RBC (4.2-5.4) M/uL Hgb (12.0-16.0) g/dL Hct (37-47) % MCV (80-100) fL MCH (25-34) pg MCHC (32-36) g/dL RDW Std Deviation (36.4-46.3) fL RDW Coeff of David (11.5-14.5) % Plt Count (130-400) K/uL MPV (7.4-10.4) fL Sample Site POC pH (7.35-7.45) POC pCO2 (35-46) mmHg POC pO2 (80-95) mmHg POC HCO3 (19-24) mary/L POC Total CO2 (24-31) mEq/l POC Base Excess (-9-1.8) mary/L POC ABG O2 Sat (90-95) % Sree Test O2 Delivery Device POC FiO2 % PEEP Sodium 133 L (136-145) mmol/L Potassium 5.1 (3.5-5.1) mmol/L Chloride 100 (98-107) mmol/L Carbon Dioxide 21 (21-32) mmol/L Anion Gap 12.0 H (3-11) BUN 43 H (7-18) mg/dl Creatinine 5.26 H* D (0.6-1.2) mg/dl Est Cr Clr Drug Dosing 9.2 ml/min Est GFR ( Amer) 8.2 Est GFR (Non-Af Amer) 7.0 BUN/Creatinine Ratio 8.1 L (10-20) Glucose 212 H (70-99) mg/dl POC Glucose (other) 191 H 209 H (70-99) mg/dl Calcium 7.0 L (8.5-10.1) mg/dl Phosphorus (2.5-4.9) mg/dl Magnesium (1.8-2.4) mg/dl Urine Color Urine Appearance (Clear) Urine pH (4.5-7.5) Ur Specific [place] (1.000-1.030) Urine Protein (Negative) Urine Glucose (UA) (Negative) Urine Ketones (Negative) Urine Blood (Negative) Urine Nitrite (Negative) Urine Bilirubin (Negative) Urine Urobilinogen (Negative) Ur Leukocyte Esterase (Negative) Urine WBC (Auto) (0-5) /hpf Urine RBC (Auto) (0-4) /hpf U Hyaline Cast (Auto) (0-5) /lpf U Epithel Cells (Auto) (0-5) /lpf Urine Bacteria (Auto) (Negative) Urine Yeast (None Prsent) 11/14/18 11/14/18 11/14/18 Range/Units 18:03 14:09 13:00 WBC (4.8-10.8) K/uL RBC (4.2-5.4) M/uL Hgb (12.0-16.0) g/dL Hct (37-47) % MCV (80-100) fL MCH (25-34) pg MCHC (32-36) g/dL RDW Std Deviation (36.4-46.3) fL RDW Coeff of David (11.5-14.5) % Plt Count (130-400) K/uL MPV (7.4-10.4) fL Sample Site POC pH (7.35-7.45) POC pCO2 (35-46) mmHg POC pO2 (80-95) mmHg POC HCO3 (19-24) mary/L POC Total CO2 (24-31) mEq/l POC Base Excess (-9-1.8) amry/L POC ABG O2 Sat (90-95) % Sree Test O2 Delivery Device POC FiO2 % PEEP Sodium 132 L (136-145) mmol/L Potassium 5.2 H (3.5-5.1) mmol/L Chloride 101 (98-107) mmol/L Carbon Dioxide 20 L (21-32) mmol/L Anion Gap 11.0 (3-11) BUN 39 H (7-18) mg/dl Creatinine 4.89 H* (0.6-1.2) mg/dl Est Cr Clr Drug Dosing 9.9 ml/min Est GFR ( Amer) 8.9 Est GFR (Non-Af Amer) 7.7 BUN/Creatinine Ratio 8.1 L (10-20) Glucose 213 H (70-99) mg/dl POC Glucose (other) 245 H (70-99) mg/dl Calcium 6.8 L (8.5-10.1) mg/dl Phosphorus (2.5-4.9) mg/dl Magnesium (1.8-2.4) mg/dl Urine Color Yellow Urine Appearance Cloudy A (Clear) Urine pH 5.0 (4.5-7.5) Ur Specific [place] 1.021 (1.000-1.030) Urine Protein 1+ H (Negative) Urine Glucose (UA) Trace H (Negative) Urine Ketones Negative (Negative) Urine Blood 1+ H (Negative) Urine Nitrite Negative (Negative) Urine Bilirubin Negative (Negative) Urine Urobilinogen Negative (Negative) Ur Leukocyte Esterase Negative (Negative) Urine WBC (Auto) 10-30 H (0-5) /hpf Urine RBC (Auto) 5-10 H (0-4) /hpf U Hyaline Cast (Auto) 1-5 (0-5) /lpf U Epithel Cells (Auto) 20-30 H (0-5) /lpf Urine Bacteria (Auto) Negative (Negative) Urine Yeast Budding A (None Prsent) 11/14/18 Range/Units 12:56 WBC (4.8-10.8) K/uL RBC (4.2-5.4) M/uL Hgb (12.0-16.0) g/dL Hct (37-47) % MCV (80-100) fL MCH (25-34) pg MCHC (32-36) g/dL RDW Std Deviation (36.4-46.3) fL RDW Coeff of Advid (11.5-14.5) % Plt Count (130-400) K/uL MPV (7.4-10.4) fL Sample Site Art Line POC pH 7.32 L (7.35-7.45) POC pCO2 36 (35-46) mmHg POC pO2 94 (80-95) mmHg POC HCO3 19 (19-24) mary/L POC Total CO2 20 L (24-31) mEq/l POC Base Excess -8.0 (-9-1.8) mary/L POC ABG O2 Sat 97.0 H (90-95) % Sree Test NA O2 Delivery Device Ventilator POC FiO2 40 % PEEP 5 Sodium (136-145) mmol/L Potassium (3.5-5.1) mmol/L Chloride (98-107) mmol/L Carbon Dioxide (21-32) mmol/L Anion Gap (3-11) BUN (7-18) mg/dl Creatinine (0.6-1.2) mg/dl Est Cr Clr Drug Dosing ml/min Est GFR ( Amer) Est GFR (Non-Af Amer) BUN/Creatinine Ratio (10-20) Glucose (70-99) mg/dl POC Glucose (other) (70-99) mg/dl Calcium (8.5-10.1) mg/dl Phosphorus (2.5-4.9) mg/dl Magnesium (1.8-2.4) mg/dl Urine Color Urine Appearance (Clear) Urine pH (4.5-7.5) Ur Specific [place] (1.000-1.030) Urine Protein (Negative) Urine Glucose (UA) (Negative) Urine Ketones (Negative) Urine Blood (Negative) Urine Nitrite (Negative) Urine Bilirubin (Negative) Urine Urobilinogen (Negative) Ur Leukocyte Esterase (Negative) Urine WBC (Auto) (0-5) /hpf Urine RBC (Auto) (0-4) /hpf U Hyaline Cast (Auto) (0-5) /lpf U Epithel Cells (Auto) (0-5) /lpf Urine Bacteria (Auto) (Negative) Urine Yeast (None Prsent)
[2018-11-15] MEDS ORDERED: AMIODARONE / D5W 150 MG/100 ML BAG IV STA (14:07)
[2018-11-15] MEDS ORDERED: AMIODARONE IV BOLUS / DRIP IV STA (14:07)
[2018-11-15] MEDS ORDERED: AMIODARONE 360MG / 200ML D5W IV ONE (14:13)
[2018-11-15] MEDS ORDERED: AMIODARONE 150MG / 100ML D5W IV ONE (14:13)
[2018-11-15] MEDS ORDERED: AMIODARONE / D5W 360 MG/200 ML BAG IV SCH (14:15)
[2018-11-15] MEDS ORDERED: RAPID SEQUENCE INDUCTION BAG ONE (16:16)
[2018-11-15] MEDS: fentaNYL citrate 100 MCG/2 ML VIAL IV PRN ×2 (16:58→21:28)
[2018-11-15] MEDS: VASOPRESSIN 20 UNITS in 0.9 % SODIUM CHLORIDE 100 ML IV SCH (18:39)
--- NOTE | 2018-11-15 20:16 | Procedure Note ---
Procedure Note Date of Service November 15, 2018 Procedure date: Noted above Procedure: Elective cardioversion Pre-procedure Diagnosis: Atrial fibrillation with hypotension Post-procedure Diagnosis: same as above Prior to Procedure: Informed Consent: The risks, benefits, indications, potential complications, and alternatives were explained to the patient and and informed consent obtained. Attending Staff: Sy Pate DO Anesthesia: 100 mcg fentanyl The identity of the patient was confirmed and a bedside time out was performed. Description of Procedure: After preparation with airway adjuncts, cardiac monitoring and end-tidal CO2 monitoring paddles were placed in the anterior and posterior position. A single synchronized cardioversion of 200 J was performed. Patient converted to a sinus bradycardia. Complications: None Patient tolerated the procedure well. Coding CPT Codes Resuscitation - Resuscitation: Cardioversion electric, ext ([id number])
[2018-11-15] MEDS: AMIODARONE / D5W 360 MG/200 ML BAG IV SCH (20:22)
[2018-11-15] MEDS: ROSUVASTATIN CALCIUM 20 MG TAB PO SCH (21:28)
[2018-11-16] MEDS: HYDROCORTISONE SOD 50 MG in SYRINGE 0 ML IV SCH ×3 (00:50→18:48)
[2018-11-16] MEDS: fentaNYL citrate 100 MCG/2 ML VIAL IV PRN ×4 (00:50→11:06)
[2018-11-16] MEDS: PIPERACILLIN/TAZOBACTAM 3.375 GM in DEXTROSE 5% 100 ML IV SCH ×2 (02:55→13:31)
[2018-11-16 05:22] LABS: Hematocrit (blood only) 29.7 % (37-47); Hemoglobin 9.8 g/dL (12.0-16.0); Mean Corpuscular Volume 89.2 fL (80-100); Mean Platelet Volume 10.2 fL (7.4-10.4); Nucleated RBC # (auto) 0.09 K/uL (0-0); Nucleated RBC % (auto) 0.4 %; Platelet Count 234 K/uL (130-400); RDW Coefficient of Variation 15.5 % (11.5-14.5); RDW Standard Deviation 50.8 fL (36.4-46.3); Red Blood Count 3.33 M/uL (4.2-5.4); White Blood Count 22.17 K/uL (4.8-10.8)
[2018-11-16 06:11] LABS: BUN Creatinine Ratio 9.3 (10-20); Calcium 6.4 mg/dl (8.5-10.1); Creatinine Clr Calc Pharmacy 8.4 ml/min; Est GFR (African American) 7.2; Est GFR (Non-African American) 6.2; Potassium 5.6 mmol/L (3.5-5.1)
[2018-11-16 06:17] LABS: iSTAT Arterial Blood Gas HCO3 18 meg/L (19-24); iSTAT Arterial Blood Gas pCO2 42 mmHg (35-46); iSTAT Arterial Blood Gas pH 7.25 (7.35-7.45); iSTAT Carbon Dioxide 20 mEq/l (24-31); iSTAT Site Art Line
--- NOTE | 2018-11-16 06:28 | Critical Care Progress Note ---
Date of Service November 16, 2018 Assessment & Plan (1) Post-operative state: Reason Critically Ill: 83-year-old female with recent colectomy for recurrent adenocarcinoma of colon, who presented to the ICU postoperatively following an ex-lap which revealed multiple small bowel infarcts and patient underwent small bowel resect, ileocolic resection, mucous fistula, and ileostomy. Neuro - Anxiety -Expressed concern about impending feeling of doom Sedation and analgesia -Versed 2 mg every 2 as needed fentanyl 100 mcg every 2 as needed Duloxetine: Holding: Prolonged QT Gabapentin: Holding in the setting of acute kidney injury Ambien: Holding Cardiac - AVR/CAD: Status post AVR and CABG x3 in 2016, continue Plavix Hypertension: Losartan held for renal failure, -Holding to hypertensive medications secondary to sepsis associated hypotension Sepsis associated hypotension: Resolved Atrial fibrillation with rapid ventricular response -Discontinuing amiodarone secondary to significantly prolonged QTC -Tolerated 15 mg metoprolol and 2.5 mg aliquots -Cardioversion x2 -This is the second episode of atrial fibrillation with rapid ventricular response, she cannot tolerate the rapid ventricular response -Currently rate controlled, will consider beta-blockade versus digoxin if patient becomes tachycardic again Hypotension: Multifactorial -Transition pressors to Jordan-Synephrine for hopeful reflex bradycardia response -Trend lactates understandably she is predisposed to mesenteric ischemia I hope to de-escalate the alpha stimulation as soon as possible Prolonged QTC -Discontinuing Zofran -Avoid QT prolonging medications Respiratory - -Reintubated secondary to atrial fibrillation with rapid ventricular response and acute decompensation -Bronchoscopy for airway clearance sent BAL GI - Colorectal adenocarcinoma-S/P partial colectomy with ileocolic anastomosis 11/07, developed small bowel infarcts this a.m. and required small bowel resection and ileocolic resection, mucous fistula, ileostomy. -Discussed with Dr. Multani -Course safe in place -Considered restarting trickle feeds however with the increase pressors we will hold inferior nonocclusive bowel ischemia -We will start trickle feeds as soon as possible Hypoalbuminemia GI prophylaxis: Pepcid RENAL/LYTES - Acute renal failure/metabolic acidosis: Patient developed SHAZIA on CKD and has become oliguric -Discussed with Dr. Livingston -Did not tolerate full run of dialysis today. -Hemodialysis catheter placed -Renal ultrasound showed no obstruction, few renal cyst, ascites -Holding losartan, avoiding nephrotoxic agents CVP currently 12 no additional fluids at this time DEL Figueroa for strict I's and O's, currently making urine at .11 ml/kg/hour Will continue to monitor patient's renal function with regards to need for dialysis ENDO - DM: Continuing insulin infusion -ICU hypoglycemic protocol HEME - Heparin infusion for recurrent atrial fibrillation ID - Currently on Zosyn -Repeat blood cultures with fungal culture -BAL sent today LINES/IV ACCESS - Right IJ: Placed in the operating room Left IJ temporary HD cath placed 12/28 Endotracheal tube 11/16/2018 DVT PROPHYLAXIS - Systemic heparin, SCDs I updated the patient's regarding current events. He stated that he has not seen much improvement over the past couple of days. We all expressed co ncern that the patient has not been significantly improving. I am definitely worried about a poor prognosis at this time. Dr. Willett was resident physician during care of patient. I separately evaluated patient for schneider portions of the history and the exam. I was present during the critical portion of medical decision making, and I discussed the case with the resident. I generally agree with the findings and plan. Present on Admission?: No (2) Atrial fibrillation with RVR: Present on Admission?: No (3) Acute hypoxemic respiratory failure: (4) Sepsis associated hypotension: (5) Small bowel infarction: (6) History of aortic valve replacement: (7) Acute respiratory failure with hypoxia: Present on Admission?: No (8) Stage III chronic kidney disease: Present on Admission?: No (9) Acute renal failure: Present on Admission?: No (10) Depression with anxiety: Present on Admission?: Yes (11) Recurrent adenocarcinoma of colorectal region: Present on Admission?: Yes (12) CAD (coronary artery disease): Present on Admission?: Yes (13) Hypertension: Present on Admission?: Yes (14) Anxiety: Present on Admission?: Yes (15) History of cardioversion: Present on Admission?: No (16) Atrial fibrillation status post cardioversion: Present on Admission?: No (17) S/P bronchoscopy with bronchoalveolar lavage: Present on Admission?: No (18) Acute hemodialysis patient: Present on Admission?: No (19) SHAZIA (acute kidney injury): Present on Admission?: No Subjective Patient feeling poor this morning, tolerated placement of hemodialysis catheter. During hemodialysis patient flipped in A. fib with RVR was extremely short of breath and stated she felt like she was going to . Ms. Ponce did not feel well this morning, she was having more difficulty communicating than she had been having previously and her heart rate jumped markedly. Proceeded with intubation, cardioversion, and bronchoscopy. Patient currently remains intubated. Review of Systems Review of Systems: Unobtainable due to endotracheal tube Physical Exam Physical Exam: General: Alert. nontoxic. Skin: Warm, dry, Head: Atraumatic Ears, nose, mouth and throat: airway patent Cardiovascular: Normal peripheral perfusion Respiratory: rhonchorous sounds bilaterally Gastrointestinal: Non distended, minimal fluid in ileostomy and mucous fistula Musculoskeletal: No deformity, +2 edema Results & Data Vital Signs (Past 12 Hours) Vital Signs BP 11/16/18 00:00 95/66 L 11/15/18 20:00 142/76 H Laboratory Results 11/16/18 11/16/18 11/16/18 Range/Units 17:41 17:41 17:41 WBC (4.8-10.8) K/uL RBC (4.2-5.4) M/uL Hgb (12.0-16.0) g/dL Hct (37-47) % MCV (80-100) fL MCH (25-34) pg MCHC (32-36) g/dL RDW Std Deviation (36.4-46.3) fL RDW Coeff of David (11.5-14.5) % Plt Count (130-400) K/uL MPV (7.4-10.4) fL Absolute Nucleated RBC (0-0) K/uL Nucleated RBC % (auto) % PT 12.3 H (9.0-12.0) Seconds INR 1.2 H (0.9-1.1) APTT Cancelled 93.8 H* (21.0-31.0) Seconds PTT Ratio Cancelled 3.5 Sample Site POC pH (7.35-7.45) POC pCO2 (35-46) mmHg POC pO2 (80-95) mmHg POC HCO3 (19-24) mary/L POC Total CO2 (24-31) mEq/l POC Base Excess (-9-1.8) mary/L POC ABG O2 Sat (90-95) % Sree Test O2 Delivery Device Sodium 131 L (136-145) mmol/L Potassium 4.2 D (3.5-5.1) mmol/L Chloride 96 L (98-107) mmol/L Carbon Dioxide 24 (21-32) mmol/L Anion Gap 11.0 (3-11) BUN 32 H (7-18) mg/dl Creatinine 3.67 H D (0.6-1.2) mg/dl Est Cr Clr Drug Dosing 13.9 ml/min Est GFR ( Amer) 12.6 Est GFR (Non-Af Amer) 10.9 BUN/Creatinine Ratio 8.8 L (10-20) Glucose 120 H (70-99) mg/dl POC Glucose (other) (70-99) mg/dl Lactate (0.4-2.0) mmol/L Calcium 6.9 L (8.5-10.1) mg/dl Ionized Calcium (1.12-1.32) mmol/L Total Bilirubin 0.6 (0.2-1) mg/dl AST 48 H (15-37) U/L ALT 22 (12-78) U/L Alkaline Phosphatase 114 (45-117) U/L Total Protein 5.4 L (6.4-8.2) gm/dl Albumin 2.1 L (3.4-5.0) gm/dl Globulin 3.3 (2.5-4.0) gm/dl Albumin/Globulin Ratio 0.6 L (0.9-2) Hep Bs Antigen (Neg) Hep Bs Antibody Hep Bs Antibody, Quant (>or=10mIU/mL Immune) mIU/mL Hep B Core IgM Ab 11/16/18 11/16/18 11/16/18 Range/Units 17:40 17:40 13:37 WBC (4.8-10.8) K/uL RBC (4.2-5.4) M/uL Hgb (12.0-16.0) g/dL Hct (37-47) % MCV (80-100) fL MCH (25-34) pg MCHC (32-36) g/dL RDW Std Deviation (36.4-46.3) fL RDW Coeff of David (11.5-14.5) % Plt Count (130-400) K/uL MPV (7.4-10.4) fL Absolute Nucleated RBC (0-0) K/uL Nucleated RBC % (auto) % PT (9.0-12.0) Seconds INR (0.9-1.1) APTT (21.0-31.0) Seconds PTT Ratio Sample Site POC pH (7.35-7.45) POC pCO2 (35-46) mmHg POC pO2 (80-95) mmHg POC HCO3 (19-24) mary/L POC Total CO2 (24-31) mEq/l POC Base Excess (-9-1.8) mary/L POC ABG O2 Sat (90-95) % Sree Test O2 Delivery Device Sodium (136-145) mmol/L Potassium (3.5-5.1) mmol/L Chloride (98-107) mmol/L Carbon Dioxide (21-32) mmol/L Anion Gap (3-11) BUN (7-18) mg/dl Creatinine (0.6-1.2) mg/dl Est Cr Clr Drug Dosing ml/min Est GFR ( Amer) Est GFR (Non-Af Amer) BUN/Creatinine Ratio (10-20) Glucose (70-99) mg/dl POC Glucose (other) 170 H (70-99) mg/dl Lactate 3.0 H* (0.4-2.0) mmol/L Calcium (8.5-10.1) mg/dl Ionized Calcium 0.81 L (1.12-1.32) mmol/L Total Bilirubin (0.2-1) mg/dl AST (15-37) U/L ALT (12-78) U/L Alkaline Phosphatase (45-117) U/L Total Protein (6.4-8.2) gm/dl Albumin (3.4-5.0) gm/dl Globulin (2.5-4.0) gm/dl Albumin/Globulin Ratio (0.9-2) Hep Bs Antigen (Neg) Hep Bs Antibody Hep Bs Antibody, Quant (>or=10mIU/mL Immune) mIU/mL Hep B Core IgM Ab 11/16/18 11/16/18 11/16/18 Range/Units 12:10 12:10 11:09 WBC (4.8-10.8) K/uL RBC (4.2-5.4) M/uL Hgb (12.0-16.0) g/dL Hct (37-47) % MCV (80-100) fL MCH (25-34) pg MCHC (32-36) g/dL RDW Std Deviation (36.4-46.3) fL RDW Coeff of David (11.5-14.5) % Plt Count (130-400) K/uL MPV (7.4-10.4) fL Absolute Nucleated RBC (0-0) K/uL Nucleated RBC % (auto) % PT (9.0-12.0) Seconds INR (0.9-1.1) APTT (21.0-31.0) Seconds PTT Ratio Sample Site Art Line POC pH 7.31 L (7.35-7.45) POC pCO2 36 (35-46) mmHg POC pO2 81 (80-95) mmHg POC HCO3 18 L (19-24) mary/L POC Total CO2 19 L (24-31) mEq/l POC Base Excess -9.0 (-9-1.8) mary/L POC ABG O2 Sat 95.0 (90-95) % Sree Test NA O2 Delivery Device Cannula Sodium (136-145) mmol/L Potassium (3.5-5.1) mmol/L Chloride (98-107) mmol/L Carbon Dioxide (21-32) mmol/L Anion Gap (3-11) BUN (7-18) mg/dl Creatinine (0.6-1.2) mg/dl Est Cr Clr Drug Dosing ml/min Est GFR ( Amer) Est GFR (Non-Af Amer) BUN/Creatinine Ratio (10-20) Glucose (70-99) mg/dl POC Glucose (other) (70-99) mg/dl Lactate (0.4-2.0) mmol/L Calcium (8.5-10.1) mg/dl Ionized Calcium (1.12-1.32) mmol/L Total Bilirubin (0.2-1) mg/dl AST (15-37) U/L ALT (12-78) U/L Alkaline Phosphatase (45-117) U/L Total Protein (6.4-8.2) gm/dl Albumin (3.4-5.0) gm/dl Globulin (2.5-4.0) gm/dl Albumin/Globulin Ratio (0.9-2) Hep Bs Antigen Neg (Neg) Hep Bs Antibody Non-Immune Hep Bs Antibody, Quant < 3.10 L (>or=10mIU/mL Immune) mIU/mL Hep B Core IgM Ab Pending 11/16/18 11/16/18 11/16/18 Range/Units 09:30 06:04 05:19 WBC (4.8-10.8) K/uL RBC (4.2-5.4) M/uL Hgb (12.0-16.0) g/dL Hct (37-47) % MCV (80-100) fL MCH (25-34) pg MCHC (32-36) g/dL RDW Std Deviation (36.4-46.3) fL RDW Coeff of David (11.5-14.5) % Plt Count (130-400) K/uL MPV (7.4-10.4) fL Absolute Nucleated RBC (0-0) K/uL Nucleated RBC % (auto) % PT (9.0-12.0) Seconds INR (0.9-1.1) APTT (21.0-31.0) Seconds PTT Ratio Sample Site Art Line POC pH 7.25 L (7.35-7.45) POC pCO2 42 (35-46) mmHg POC pO2 82 (80-95) mmHg POC HCO3 18 L (19-24) mary/L POC Total CO2 20 L (24-31) mEq/l POC Base Excess -9.0 (-9-1.8) mary/L POC ABG O2 Sat 94.0 (90-95) % Sree Test NA O2 Delivery Device Cannula Sodium (136-145) mmol/L Potassium (3.5-5.1) mmol/L Chloride (98-107) mmol/L Carbon Dioxide (21-32) mmol/L Anion Gap (3-11) BUN (7-18) mg/dl Creatinine (0.6-1.2) mg/dl Est Cr Clr Drug Dosing ml/min Est GFR ( Amer) Est GFR (Non-Af Amer) BUN/Creatinine Ratio (10-20) Glucose (70-99) mg/dl POC Glucose (other) 178 H 161 H (70-99) mg/dl Lactate (0.4-2.0) mmol/L Calcium (8.5-10.1) mg/dl Ionized Calcium (1.12-1.32) mmol/L Total Bilirubin (0.2-1) mg/dl AST (15-37) U/L ALT (12-78) U/L Alkaline Phosphatase (45-117) U/L Total Protein (6.4-8.2) gm/dl Albumin (3.4-5.0) gm/dl Globulin (2.5-4.0) gm/dl Albumin/Globulin Ratio (0.9-2) Hep Bs Antigen (Neg) Hep Bs Antibody Hep Bs Antibody, Quant (>or=10mIU/mL Immune) mIU/mL Hep B Core IgM Ab 11/16/18 11/16/18 11/16/18 Range/Units 05:16 05:16 01:05 WBC 22.17 H (4.8-10.8) K/uL RBC 3.33 L (4.2-5.4) M/uL Hgb 9.8 L (12.0-16.0) g/dL Hct 29.7 L (37-47) % MCV 89.2 (80-100) fL MCH 29.4 (25-34) pg MCHC 33.0 (32-36) g/dL RDW Std Deviation 50.8 H (36.4-46.3) fL RDW Coeff of David 15.5 H (11.5-14.5) % Plt Count 234 (130-400) K/uL MPV 10.2 (7.4-10.4) fL Absolute Nucleated RBC 0.09 H (0-0) K/uL Nucleated RBC % (auto) 0.4 % PT (9.0-12.0) Seconds INR (0.9-1.1) APTT (21.0-31.0) Seconds PTT Ratio Sample Site POC pH (7.35-7.45) POC pCO2 (35-46) mmHg POC pO2 (80-95) mmHg POC HCO3 (19-24) mary/L POC Total CO2 (24-31) mEq/l POC Base Excess (-9-1.8) mary/L POC ABG O2 Sat (90-95) % Sree Test O2 Delivery Device Sodium 129 L (136-145) mmol/L Potassium 5.6 H (3.5-5.1) mmol/L Chloride 98 (98-107) mmol/L Carbon Dioxide 19 L (21-32) mmol/L Anion Gap 12.0 H (3-11) BUN 54 H (7-18) mg/dl Creatinine 5.87 H* D (0.6-1.2) mg/dl Est Cr Clr Drug Dosing 8.4 ml/min Est GFR ( Amer) 7.2 Est GFR (Non-Af Amer) 6.2 BUN/Creatinine Ratio 9.3 L (10-20) Glucose 159 H (70-99) mg/dl POC Glucose (other) 148 H (70-99) mg/dl Lactate (0.4-2.0) mmol/L Calcium 6.4 L (8.5-10.1) mg/dl Ionized Calcium (1.12-1.32) mmol/L Total Bilirubin (0.2-1) mg/dl AST (15-37) U/L ALT (12-78) U/L Alkaline Phosphatase (45-117) U/L Total Protein (6.4-8.2) gm/dl Albumin (3.4-5.0) gm/dl Globulin (2.5-4.0) gm/dl Albumin/Globulin Ratio (0.9-2) Hep Bs Antigen (Neg) Hep Bs Antibody Hep Bs Antibody, Quant (>or=10mIU/mL Immune) mIU/mL Hep B Core IgM Ab 11/15/18 11/15/18 Range/Units 21:13 18:52 WBC (4.8-10.8) K/uL RBC (4.2-5.4) M/uL Hgb (12.0-16.0) g/dL Hct (37-47) % MCV (80-100) fL MCH (25-34) pg MCHC (32-36) g/dL RDW Std Deviation (36.4-46.3) fL RDW Coeff of David (11.5-14.5) % Plt Count (130-400) K/uL MPV (7.4-10.4) fL Absolute Nucleated RBC (0-0) K/uL Nucleated RBC % (auto) % PT (9.0-12.0) Seconds INR (0.9-1.1) APTT (21.0-31.0) Seconds PTT Ratio Sample Site POC pH (7.35-7.45) POC pCO2 (35-46) mmHg POC pO2 (80-95) mmHg POC HCO3 (19-24) mary/L POC Total CO2 (24-31) mEq/l POC Base Excess (-9-1.8) mary/L POC ABG O2 Sat (90-95) % Sree Test O2 Delivery Device Sodium (136-145) mmol/L Potassium (3.5-5.1) mmol/L Chloride (98-107) mmol/L Carbon Dioxide (21-32) mmol/L Anion Gap (3-11) BUN (7-18) mg/dl Creatinine (0.6-1.2) mg/dl Est Cr Clr Drug Dosing ml/min Est GFR ( Amer) Est GFR (Non-Af Amer) BUN/Creatinine Ratio (10-20) Glucose (70-99) mg/dl POC Glucose (other) 156 H 164 H (70-99) mg/dl Lactate (0.4-2.0) mmol/L Calcium (8.5-10.1) mg/dl Ionized Calcium (1.12-1.32) mmol/L Total Bilirubin (0.2-1) mg/dl AST (15-37) U/L ALT (12-78) U/L Alkaline Phosphatase (45-117) U/L Total Protein (6.4-8.2) gm/dl Albumin (3.4-5.0) gm/dl Globulin (2.5-4.0) gm/dl Albumin/Globulin Ratio (0.9-2) Hep Bs Antigen (Neg) Hep Bs Antibody Hep Bs Antibody, Quant (>or=10mIU/mL Immune) mIU/mL Hep B Core IgM Ab ECG Additional Comments: EKG dated November 16 at 1831 revealed sinus rhythm with premature atrial complexes T wave inversions across precordium and inferior leads prolonged QTC at 585 this is an abnormal EKG Critical Care Time Critical Care Time: Yes Total Critical Care Time: 120
[2018-11-16] MEDS: NORMOSOL-R 1,000 ML IV SCH (07:11)
[2018-11-16] MEDS: AMIODARONE / D5W 360 MG/200 ML BAG IV SCH (07:36)
--- NOTE | 2018-11-16 07:46 | Surgery Progress Note ---
Date of Service November 16, 2018 Assessment & Plan (1) Small bowel infarction: remains positive fluid balance, UOP 20 cc overnight creat increased, 5.8 WBC 22, on IV steroids SBP around 100 on Levo Subjective "tired" Physical Exam Gastrointestinal (Abdomen): Inspection/Auscultation: + abdominal surgical incision (dry) and + abdominal surgical drain present (145 cc); abdomen not distended stomas pink, no ileostomy output Results & Data Vital Signs (Past 12 Hours) Vital Signs Temp Pulse Resp BP Pulse Ox 11/16/18 07:31 107 H 110/59 L 83 L 11/16/18 07:30 106 H 82 L 11/16/18 07:01 93 H 90 11/16/18 07:00 94 H 105/67 86 L 11/16/18 06:46 91 H 90/58 L 93 11/16/18 06:31 93 H 118/60 93 11/16/18 06:30 93 H 81 L 11/16/18 06:16 95 H 122/61 11/16/18 06:01 97 H 116/61 11/16/18 06:00 98 H 11/16/18 05:47 107 H 107/88 74 L 11/16/18 05:31 98 H 74/60 L 92 11/16/18 05:30 98 H 91 11/16/18 05:21 99 H 83/66 L 95 11/16/18 05:16 100 H 117/65 96 11/16/18 05:01 99 H 20 106/91 11/16/18 05:00 96 H 19 11/16/18 04:46 96 H 22 126/62 11/16/18 04:31 97 H 22 128/82 11/16/18 04:30 96 H 18 11/16/18 04:16 96 H 20 122/73 11/16/18 04:02 97 H 19 118/56 L 81 L 11/16/18 04:00 37 C 97 H 19 81/61 L 84 L 11/16/18 03:47 96 H 19 120/57 L 11/16/18 03:31 97 H 20 59/38 L 82 L 11/16/18 03:30 99 H 19 80 L 11/16/18 03:17 102 H 56/45 L 83 L 11/16/18 03:01 95 H 115/89 11/16/18 03:00 100 H 11/16/18 02:45 95 H 123/71 11/16/18 02:32 100 H 91/82 L 11/16/18 02:30 94 H 80 L 11/16/18 02:16 98 H 114/64 96 11/16/18 02:01 92 H 123/61 95 11/16/18 02:00 95 H 92 11/16/18 01:45 95 H 128/78 89 L 11/16/18 01:32 96 H 111/65 11/16/18 01:30 96 H 84 L 11/16/18 01:16 104 H 91/68 L 97 11/16/18 01:00 110 H 23 11/16/18 00:46 103 H 16 79/58 L 86 L 11/16/18 00:31 99 H 85/58 L 96 11/16/18 00:30 99 H 89 L 11/16/18 00:16 98 H 105/62 96 11/16/18 00:01 97 H 110/54 L 97 11/16/18 00:00 37 C 96 H 95/66 L 96 11/15/18 23:45 94 H 94/75 L 96 11/15/18 23:31 96 H 110/77 96 11/15/18 23:30 98 H 11/15/18 23:16 102 H 112/78 97 11/15/18 23:02 100 H 20 96/55 L 97 11/15/18 23:00 100 H 17 92 11/15/18 22:31 102 H 18 80/48 L 94 11/15/18 22:30 102 H 17 84 L 11/15/18 22:15 105 H 21 80/58 L 93 11/15/18 22:02 109 H 19 82/70 L 96 11/15/18 22:00 101 H 18 100 11/15/18 21:46 103 H 14 88/62 L 97 11/15/18 21:38 102 H 16 123/98 88 L 11/15/18 21:31 97 H 193/161 H 79 L 11/15/18 21:30 90 11/15/18 21:16 91 H 170/156 H 96 11/15/18 21:00 90 88 L 11/15/18 20:46 91 H 144/87 H 93 11/15/18 20:31 90 96 11/15/18 20:30 87 151/76 H 95 11/15/18 20:17 89 120/84 96 11/15/18 20:15 88 120/84 97 11/15/18 20:01 36.9 C 86 143/58 H 94 11/15/18 20:00 92 H 142/76 H 92 11/15/18 19:45 93 H 146/70 H 93
[2018-11-16] MEDS: INSULIN ASPART 100 UNITS/ML 3 ML PEN SC SCH ×4 (09:02→21:38)
[2018-11-16] MEDS: HEPARIN SOD 5,000 UNIT/0.5 ML VIAL SQ SCH (09:03)
[2018-11-16] MEDS: FAMOTIDINE 20 MG in SYRINGE 3 ML IV SCH (09:04)
[2018-11-16] MEDS: VASOPRESSIN 20 UNITS in 0.9 % SODIUM CHLORIDE 100 ML IV SCH (09:05)
[2018-11-16] MEDS ORDERED: SODIUM CHLORIDE 0.9% 1000ML 1,000 ML IV PRN (09:13)
[2018-11-16] MEDS: NOREPINEPHRINE BIT INJ 8 MG in DEXTROSE 5% 500 ML IV SCH ×2 (09:13→11:35)
[2018-11-16] MEDS: INSULIN REGULAR 250 UNITS in SODIUM CHLORIDE 0.9% 247.5 ML IV SCH (09:35)
--- NOTE | 2018-11-16 10:11 | Procedure Note ---
Procedure Note Date of Service November 16, 2018 Procedure date: Noted above Procedure: Temporary hemodialysis catheter placement Pre-procedure indication: Need for dialysis: Temporary catheter placement Post-procedure Diagnosis: same as above Prior to Procedure: Informed Consent: The risks, benefits, indications, potential complications, and alternatives were explained to the patient and and informed consent obtained. Attending Staff: Sy Pate DO Resident/APC: Tamie Skin Prep: Chlorhexidine Anesthesia: 4 mL 1% lidocaine without epinephrine The identity of the patient was confirmed and a bedside time out was performed. Description of Procedure: After sterile prep and sterile drape utilizing standard sterile technique the superficial skin of the left internal jugular area was anesthetized. The target vessel was identified and entered with an 18- gauge needle. Dark venous blood return was noted. A guidewire was inserted through the needle and into the vessel. The needle was withdrawn and a skin lu was made. A tissue dilator was advanced via Seldinger technique and removed. A double lumen catheter was inserted via Seldinger technique and the guidewire removed. All ports ayla and flushed easily. A Biopatch was placed, and the catheter was secured via nylon suture. A sterile dressing was then applied. Complications: None Estimated blood loss: Trace Patient tolerated the procedure well. Procedure Date: Noted Above Procedure: Procedural Ultrasound Indication: Central venous access Attending: Sy Pate DO Resident/Physician Supervisor Type Photography: Tamie Artery visualized: Yes Vein visualized: Yes Compressible Vein: Yes Vein patent: Yes Guidewire or Short Catheter seen in vein prior to dilation: Yes Line confirmed in Vein with ultrasound: Yes Lung Sliding on side of attempt (if applicable): NA If no lung sliding or not obtained has CXR been ordered: Yes Impression: Successful central venous access placement Images obtained are saved for permanent record Coding CPT Codes Tubes, Drains, and Vasc Access - Tubes, Drains, and Vasc Access: Insertion of cannula for hemodialysis ([id number]) Tubes, Drains, and Vasc Access - Tubes, Drains, and Vasc Access: Ultrasound Guidance For Vascular ([id number])
--- NOTE | 2018-11-16 10:41 | XRay Report ---
XR chest 1V portable HISTORY: hypoxia COMPARISON: Chest 11/14/2018. FINDINGS: Endotracheal tube is been removed. Feeding tube terminates in the body the stomach. Left ju gular central venous catheter terminates at the brachiocephalic/SVC junction. Right jugular central v enous catheter is unchanged in position. No pneumothorax. The heart is mildly enlarged. There are low lung volumes. Mild interstitial pulmonary edema and small bilateral pleural effusions have progresse d. There are poststernotomy changes and a cardiac valve prosthesis. IMPRESSION: 1. Satisfactory support line placement. 2. Interval progression of the mild pulmonary edema and small bilateral pleural effusions. Electronically signed by: Marcus Jacob M.D. 11/16/2018 10:40 AM
[2018-11-16 11:24] LABS: iSTAT Arterial Blood Gas HCO3 18 meg/L (19-24); iSTAT Arterial Blood Gas pCO2 36 mmHg (35-46); iSTAT Arterial Blood Gas pH 7.31 (7.35-7.45); iSTAT Carbon Dioxide 19 mEq/l (24-31); iSTAT Site Art Line
--- NOTE | 2018-11-16 11:29 | Nephrology Progress Note ---
Date of Service November 16, 2018 Assessment & Plan (1) Acute renal failure: -- Nonoliguric SHAZIA. Patient remains in injury phase. She now has hyperkalemia -- Indications/risks/benefits to vascular access placement and initiation of HD discussed w/ patient today. She verbalized understanding and agrees to dialysis -- Will ask ICU team to place femoral dialysis catheter -- Orders placed for heparin free HD today. HD RN notified. No UF as patient is oxygenating well and still requires pressor support (2) Stage III chronic kidney disease: -- Baseline creatinine 1.0 (3) Small bowel infarction: -- s/p exploratory lap w/ partial colectomy and ileostomy 11/13 (4) History of aortic valve replacement: (5) PMR (polymyalgia rheumatica): (6) S/P admission to ICU (intensive care unit): -- 30 min critical care time provided today. This was necessary to review records, examine patient and discuss plan of care w/ ICU team Subjective Mrs. Ponce was seen & examined in the ICU this morning. She complained of abdominal discomfort related to her recent surgery. She denied fever, angina or dyspnea Review of Systems Constitutional: no fever Respiratory: no dyspnea Cardiovascular: no chest pain Gastrointestinal: + abdominal pain (due to recent surgery); no vomiting and no diarrhea/loose stools Physical Exam Constitutional: + ill appearing Eyes: PERRL, conjunctivae normal, anicteric sclerae Respiratory: Auscultation: + bronchovesicular breath sounds Cardiovascular: Rate/Rhythm: regular rhythm and + tachycardic Extremities: no edema Gastrointestinal (Abdomen): Percussion/Palpation: abdomen soft (hypoactive bowel sounds, clean surgical dressing in place) Results & Data Vital Signs (Past 12 Hours) Vital Signs Temp Pulse Resp BP Pulse Ox 11/16/18 11:20 99 H 14 94 11/16/18 07:31 107 H 110/59 L 83 L 11/16/18 07:30 106 H 82 L 11/16/18 07:01 93 H 90 11/16/18 07:00 94 H 105/67 86 L 11/16/18 06:46 91 H 90/58 L 93 11/16/18 06:31 93 H 118/60 93 11/16/18 06:30 93 H 81 L 11/16/18 06:16 95 H 122/61 11/16/18 06:01 97 H 116/61 11/16/18 06:00 98 H 11/16/18 05:47 107 H 107/88 74 L 11/16/18 05:31 98 H 74/60 L 92 11/16/18 05:30 98 H 91 11/16/18 05:21 99 H 83/66 L 95 11/16/18 05:16 100 H 117/65 96 11/16/18 05:01 99 H 20 106/91 11/16/18 05:00 96 H 19 11/16/18 04:46 96 H 22 126/62 11/16/18 04:31 97 H 22 128/82 11/16/18 04:30 96 H 18 11/16/18 04:16 96 H 20 122/73 11/16/18 04:02 97 H 19 118/56 L 81 L 11/16/18 04:00 37 C 97 H 19 81/61 L 84 L 11/16/18 03:47 96 H 19 120/57 L 11/16/18 03:31 97 H 20 59/38 L 82 L 11/16/18 03:30 99 H 19 80 L 11/16/18 03:17 102 H 56/45 L 83 L 11/16/18 03:01 95 H 115/89 11/16/18 03:00 100 H 11/16/18 02:45 95 H 123/71 11/16/18 02:32 100 H 91/82 L 11/16/18 02:30 94 H 80 L 11/16/18 02:16 98 H 114/64 96 11/16/18 02:01 92 H 123/61 95 11/16/18 02:00 95 H 92 11/16/18 01:45 95 H 128/78 89 L 11/16/18 01:32 96 H 111/65 11/16/18 01:30 96 H 84 L 11/16/18 01:16 104 H 91/68 L 97 11/16/18 01:00 110 H 23 11/16/18 00:46 103 H 16 79/58 L 86 L 11/16/18 00:31 99 H 85/58 L 96 11/16/18 00:30 99 H 89 L 11/16/18 00:16 98 H 105/62 96 11/16/18 00:01 97 H 110/54 L 97 11/16/18 00:00 37 C 96 H 95/66 L 96 11/15/18 23:45 94 H 94/75 L 96 11/15/18 23:31 96 H 110/77 96 11/15/18 23:30 98 H Laboratory Results Laboratory Tests 11/16/18 11/16/18 05:16 05:16 WBC 22.17 H Hgb 9.8 L Hct 29.7 L Plt Count 234 Sodium 129 L Potassium 5.6 H Chloride 98 Carbon Dioxide 19 L BUN 54 H Creatinine 5.87 H* D 11/16/18 CXR: Endotracheal tube is been removed. Feeding tube terminates in the body the stomach. Left jugular central venous catheter terminates at the brachiocephalic/SVC junction. Right jugular central venous catheter is unchanged in position. No pneumothorax. The heart is mildly enlarged. There are low lung volumes. Mild interstitial pulmonary edema and small bilateral pleural effusions have progressed. There are poststernotomy changes and a cardiac valve pro sthesis.
[2018-11-16] MEDS: CLOPIDOGREL BISULFATE 75 MG TAB PO SCH (11:35)
[2018-11-16 13:02] LABS: Hepatitis B Surface Antibody Non-Immune
[2018-11-16 13:13] LABS: Hepatitis B Surface Antigen Neg (Neg)
--- NOTE | 2018-11-16 14:00 | Hospitalist Progress Note ---
Date of Service November 16, 2018 Assessment & Plan (1) Sepsis associated hypotension: - Related to small bowel infarcts; required upgrade to ICU on 11/13/18. - Continue pressor support as needed. - Stress dose steroids with Hydrocortisone 50 mg IV q8hr. - UC from 11/13 is negative; blood cultures are negative. - Continue Zosyn IV for empiric coverage. -On pressor support as per ergonomics technician December (2) Small bowel infarction: - S/p urgent laparotomy with small bowel resection, ileocolic resection, mucous fistula, ileostomy and abdominal washout on 11/13 due to multiple small infarcts. - Loin Trimmer and general surgery following. - Continue Zosyn for empiric coverage. - NPO except meds; start PPN when possible. - Pain control per surgery team. - DVT ppx per ICU and surgery team. (3) Recurrent adenocarcinoma of colorectal region: - S/p hemicolectomy in 2007; s/p partial colectomy on 11/07 for recurrent cancer followed by urgent laparotomy as noted above. - Primary management per surgery team. (4) Acute respiratory failure with hypoxia: - Echo 11/13 with decreased EF 45-50% with mild global hypokinesis and elevated right ventricular pressures. - Now extubated, stable on 2L via NC. (5) Acute renal failure: - Creatinine continues to rise in setting of non-oliguric SHAZIA and new electrolyte imbalances. - Renal US was negative for obstruction. - Figueroa for accurate I/Os - very minimal urine output; monitor daily weights - has increased by >10 kg since admission. - Nephrology following, plan to start HD this afternoon. - Holding all nephrotoxic agents, including home ARB and gabapentin. (6) Stage III chronic kidney disease: - Renally dose all meds. (7) Atrial fibrillation with RVR: - Continue Amiodarone drip; now converted back to NSR. - Holding home beta jaron in setting of hypotension. (8) Diabetes: - Hemoglobin A1C was 7.6. - Glucose management per ICU team. (9) CAD (coronary artery disease): - CAD S/P CABG x 3. - Follows with [facility], had pre-operative assessment/clearance. - Continue statin and plavix as prescribed. - Holding Imdur and Metoprolol due to hypotension. (10) History of aortic valve replacement: - AVR with Bioprosthetic (2016). - Well functioning per echo. (11) Hypertension: - Holding ARB due to SHAZIA and hypotension. - Beta jaron and Imdur also on hold. (12) Obstructive sleep apnea of adult: - Pt. uses CPAP qhs. (13) PMR (polymyalgia rheumatica): - On Prednisone 5 mg daily at home -- currently receiving stress dose steroids. (14) Depression with anxiety: - Holding home Cymbalta. (15) History of CVA (cerebrovascular accident): - Occurred following surgery (AVR). - Continue Plavix, statin as prescribed. (16) GERD (gastroesophageal reflux disease): - Famotidine 20 mg IV qAM. (17) DVT prophylaxis: - Heparin subQ q12hr. Dispo: ICU status, will continue to follow. Supervising Physician Co-Signing Physician Notes NEAL Supervision Note: I did not personally see or examine the patient today, but I verified all schneider points of NEAL Ayala's assessment and plan with the following exceptions/additions: None Subjective Requiring pressor support in setting of hypotension. Plan to start HD due to nonoliguric SHAZIA with new electrolyte imbalances -- femoral dialysis catheter to be placed today. Has remained stable on O2 via NC but desats at times. Review of Systems Review of Systems: Other (Limited review of systems obtained.) Constitutional: + fatigue and + weakness; no fever, no chills and no anorexia Respiratory: no cough, no dyspnea and no dyspnea on exertion Cardiovascular: no chest pain and no palpitations Gastrointestinal: no abdominal pain Physical Exam Physical Exam: General: Resting comfortably HEENT: NC/AT; PERRLA with EOMI; [place] conjunctiva, MMM. Neck: Supple and nontender Cardiac: Tachycardic, irregular. Lungs: CPAP; diminished throughout. Abdomen: Bowel hypoactive throughout Extremities: Warm. No edema present Neuro: No focal weakness Skin: No rash Results & Data Vital Signs (Past 12 Hours) Vital Signs Temp Pulse Resp BP Pulse Ox 11/16/18 11:20 99 H 14 94 11/16/18 07:31 107 H 110/59 L 83 L 11/16/18 07:30 106 H 82 L 11/16/18 07:01 93 H 90 11/16/18 07:00 94 H 105/67 86 L 11/16/18 06:46 91 H 90/58 L 93 11/16/18 06:31 93 H 118/60 93 11/16/18 06:30 93 H 81 L 11/16/18 06:16 95 H 122/61 11/16/18 06:01 97 H 116/61 11/16/18 06:00 98 H 11/16/18 05:47 107 H 107/88 74 L 11/16/18 05:31 98 H 74/60 L 92 11/16/18 05:30 98 H 91 11/16/18 05:21 99 H 83/66 L 95 11/16/18 05:16 100 H 117/65 96 11/16/18 05:01 99 H 20 106/91 11/16/18 05:00 96 H 19 11/16/18 04:46 96 H 22 126/62 11/16/18 04:31 97 H 22 128/82 11/16/18 04:30 96 H 18 11/16/18 04:16 96 H 20 122/73 11/16/18 04:02 97 H 19 118/56 L 81 L 11/16/18 04:00 37 C 97 H 19 81/61 L 84 L 11/16/18 03:47 96 H 19 120/57 L 11/16/18 03:31 97 H 20 59/38 L 82 L 11/16/18 03:30 99 H 19 80 L 11/16/18 03:17 102 H 56/45 L 83 L 11/16/18 03:01 95 H 115/89 11/16/18 03:00 100 H 11/16/18 02:45 95 H 123/71 11/16/18 02:32 100 H 91/82 L 11/16/18 02:30 94 H 80 L 11/16/18 02:16 98 H 114/64 96 11/16/18 02:01 92 H 123/61 95 11/16/18 02:00 95 H 92 Laboratory Results 11/16/18 11/16/18 11/16/18 Range/Units 12:10 12:10 11:09 WBC (4.8-10.8) K/uL RBC (4.2-5.4) M/uL Hgb (12.0-16.0) g/dL Hct (37-47) % MCV (80-100) fL MCH (25-34) pg MCHC (32-36) g/dL RDW Std Deviation (36.4-46.3) fL RDW Coeff of David (11.5-14.5) % Plt Count (130-400) K/uL MPV (7.4-10.4) fL Absolute Nucleated RBC (0-0) K/uL Nucleated RBC % (auto) % Sample Site Art Line POC pH 7.31 L (7.35-7.45) POC pCO2 36 (35-46) mmHg POC pO2 81 (80-95) mmHg POC HCO3 18 L (19-24) mary/L POC Total CO2 19 L (24-31) mEq/l POC Base Excess -9.0 (-9-1.8) mary/L POC ABG O2 Sat 95.0 (90-95) % Sree Test NA O2 Delivery Device Cannula Sodium (136-145) mmol/L Potassium (3.5-5.1) mmol/L Chloride (98-107) mmol/L Carbon Dioxide (21-32) mmol/L Anion Gap (3-11) BUN (7-18) mg/dl Creatinine (0.6-1.2) mg/dl Est Cr Clr Drug Dosing ml/min Est GFR ( Amer) Est GFR (Non-Af Amer) BUN/Creatinine Ratio (10-20) Glucose (70-99) mg/dl POC Glucose (other) (70-99) mg/dl Calcium (8.5-10.1) mg/dl Troponin I (0-0.045) ng/ml Hep Bs Antigen Neg (Neg) Hep Bs Antibody Non-Immune Hep Bs Antibody, Quant < 3.10 L (>or=10mIU/mL Immune) mIU/mL Hep B Core IgM Ab Pending 11/16/18 11/16/18 11/16/18 Range/Units 09:30 06:04 05:19 WBC (4.8-10.8) K/uL RBC (4.2-5.4) M/uL Hgb (12.0-16.0) g/dL Hct (37-47) % MCV (80-100) fL MCH (25-34) pg MCHC (32-36) g/dL RDW Std Deviation (36.4-46.3) fL RDW Coeff of David (11.5-14.5) % Plt Count (130-400) K/uL MPV (7.4-10.4) fL Absolute Nucleated RBC (0-0) K/uL Nucleated RBC % (auto) % Sample Site Art Line POC pH 7.25 L (7.35-7.45) POC pCO2 42 (35-46) mmHg POC pO2 82 (80-95) mmHg POC HCO3 18 L (19-24) mary/L POC Total CO2 20 L (24-31) mEq/l POC Base Excess -9.0 (-9-1.8) mary/L POC ABG O2 Sat 94.0 (90-95) % Sree Test NA O2 Delivery Device Cannula Sodium (136-145) mmol/L Potassium (3.5-5.1) mmol/L Chloride (98-107) mmol/L Carbon Dioxide (21-32) mmol/L Anion Gap (3-11) BUN (7-18) mg/dl Creatinine (0.6-1.2) mg/dl Est Cr Clr Drug Dosing ml/min Est GFR ( Amer) Est GFR (Non-Af Amer) BUN/Creatinine Ratio (10-20) Glucose (70-99) mg/dl POC Glucose (other) 178 H 161 H (70-99) mg/dl Calcium (8.5-10.1) mg/dl Troponin I (0-0.045) ng/ml Hep Bs Antigen (Neg) Hep Bs Antibody Hep Bs Antibody, Quant (>or=10mIU/mL Immune) mIU/mL Hep B Core IgM Ab 11/16/18 11/16/18 11/16/18 Range/Units 05:16 05:16 01:05 WBC 22.17 H (4.8-10.8) K/uL RBC 3.33 L (4.2-5.4) M/uL Hgb 9.8 L (12.0-16.0) g/dL Hct 29.7 L (37-47) % MCV 89.2 (80-100) fL MCH 29.4 (25-34) pg MCHC 33.0 (32-36) g/dL RDW Std Deviation 50.8 H (36.4-46.3) fL RDW Coeff of David 15.5 H (11.5-14.5) % Plt Count 234 (130-400) K/uL MPV 10.2 (7.4-10.4) fL Absolute Nucleated RBC 0.09 H (0-0) K/uL Nucleated RBC % (auto) 0.4 % Sample Site POC pH (7.35-7.45) POC pCO2 (35-46) mmHg POC pO2 (80-95) mmHg POC HCO3 (19-24) mary/L POC Total CO2 (24-31) mEq/l POC Base Excess (-9-1.8) mary/L POC ABG O2 Sat (90-95) % Sree Test O2 Delivery Device Sodium 129 L (136-145) mmol/L Potassium 5.6 H (3.5-5.1) mmol/L Chloride 98 (98-107) mmol/L Carbon Dioxide 19 L (21-32) mmol/L Anion Gap 12.0 H (3-11) BUN 54 H (7-18) mg/dl Creatinine 5.87 H* D (0.6-1.2) mg/dl Est Cr Clr Drug Dosing 8.4 ml/min Est GFR ( Amer) 7.2 Est GFR (Non-Af Amer) 6.2 BUN/Creatinine Ratio 9.3 L (10-20) Glucose 159 H (70-99) mg/dl POC Glucose (other) 148 H (70-99) mg/dl Calcium 6.4 L (8.5-10.1) mg/dl Troponin I (0-0.045) ng/ml Hep Bs Antigen (Neg) Hep Bs Antibody Hep Bs Antibody, Quant (>or=10mIU/mL Immune) mIU/mL Hep B Core IgM Ab 11/15/18 11/15/18 11/15/18 Range/Units 21:13 18:52 16:58 WBC (4.8-10.8) K/uL RBC (4.2-5.4) M/uL Hgb (12.0-16.0) g/dL Hct (37-47) % MCV (80-100) fL MCH (25-34) pg MCHC (32-36) g/dL RDW Std Deviation (36.4-46.3) fL RDW Coeff of David (11.5-14.5) % Plt Count (130-400) K/uL MPV (7.4-10.4) fL Absolute Nucleated RBC (0-0) K/uL Nucleated RBC % (auto) % Sample Site POC pH (7.35-7.45) POC pCO2 (35-46) mmHg POC pO2 (80-95) mmHg POC HCO3 (19-24) mary/L POC Total CO2 (24-31) mEq/l POC Base Excess (-9-1.8) mary/L POC ABG O2 Sat (90-95) % Sree Test O2 Delivery Device Sodium (136-145) mmol/L Potassium (3.5-5.1) mmol/L Chloride (98-107) mmol/L Carbon Dioxide (21-32) mmol/L Anion Gap (3-11) BUN (7-18) mg/dl Creatinine (0.6-1.2) mg/dl Est Cr Clr Drug Dosing ml/min Est GFR ( Amer) Est GFR (Non-Af Amer) BUN/Creatinine Ratio (10-20) Glucose (70-99) mg/dl POC Glucose (other) 156 H 164 H 161 H (70-99) mg/dl Calcium (8.5-10.1) mg/dl Troponin I (0-0.045) ng/ml Hep Bs Antigen (Neg) Hep Bs Antibody Hep Bs Antibody, Quant (>or=10mIU/mL Immune) mIU/mL Hep B Core IgM Ab 11/15/18 11/15/18 11/15/18 Range/Units 15:24 15:22 14:04 WBC (4.8-10.8) K/uL RBC (4.2-5.4) M/uL Hgb (12.0-16.0) g/dL Hct (37-47) % MCV (80-100) fL MCH (25-34) pg MCHC (32-36) g/dL RDW Std Deviation (36.4-46.3) fL RDW Coeff of David (11.5-14.5) % Plt Count (130-400) K/uL MPV (7.4-10.4) fL Absolute Nucleated RBC (0-0) K/uL Nucleated RBC % (auto) % Sample Site POC pH (7.35-7.45) POC pCO2 (35-46) mmHg POC pO2 (80-95) mmHg POC HCO3 (19-24) mary/L POC Total CO2 (24-31) mEq/l POC Base Excess (-9-1.8) mary/L POC ABG O2 Sat (90-95) % Sree Test O2 Delivery Device Sodium (136-145) mmol/L Potassium (3.5-5.1) mmol/L Chloride (98-107) mmol/L Carbon Dioxide (21-32) mmol/L Anion Gap (3-11) BUN (7-18) mg/dl Creatinine (0.6-1.2) mg/dl Est Cr Clr Drug Dosing ml/min Est GFR ( Amer) Est GFR (Non-Af Amer) BUN/Creatinine Ratio (10-20) Glucose (70-99) mg/dl POC Glucose (other) 145 H 114 H (70-99) mg/dl Calcium (8.5-10.1) mg/dl Troponin I 0.528 H* (0-0.045) ng/ml Hep Bs Antigen (Neg) Hep Bs Antibody Hep Bs Antibody, Quant (>or=10mIU/mL Immune) mIU/mL Hep B Core IgM Ab
[2018-11-16] MEDS ORDERED: AZITHROMYCIN 500 MG in DEXTROSE 5% 250 ML IV STA (15:21)
[2018-11-16] MEDS ORDERED: AZTREONAM 2,000 MG in DEXTROSE 5% 100 ML IV SCH (15:30)
[2018-11-16] MEDS: ALBUMIN 25% 50 ML IV SCH ×2 (15:50→15:52)
[2018-11-16] MEDS ORDERED: MIDAZOLAM HCL 1 MG/ML 2ML VIAL ONE (17:20)
[2018-11-16] MEDS ORDERED: HEPARIN 25000 UNIT/500 ML D5W IV ONE (17:24)
[2018-11-16] MEDS ORDERED: RAPID SEQUENCE INDUCTION BAG ONE (17:26)
[2018-11-16] MEDS ORDERED: HEPARIN IV BOLUS 6,000 UNITS in SYRINGE 0 ML IV ONE (17:32)
[2018-11-16] MEDS ORDERED: HEPARIN SQ 5000 UNIT HEART ALERT CARP ONE (17:38)
[2018-11-16] MEDS ORDERED: PHENYLEPHRINE HCL 20 MG in DEXTROSE 5% 500 ML IV STA (17:43)
[2018-11-16] MEDS ORDERED: METOPROLOL TARTRATE 1 MG/ML VIAL IV ONE ×3 (17:48→18:01)
[2018-11-16 18:10] LABS: Albumin Level 2.1 gm/dl (3.4-5.0); BUN Creatinine Ratio 8.8 (10-20); Calcium 6.9 mg/dl (8.5-10.1); Creatinine Clr Calc Pharmacy 13.9 ml/min; Est GFR (African American) 12.6; Est GFR (Non-African American) 10.9; Potassium 4.2 mmol/L (3.5-5.1)
[2018-11-16 18:14] LABS: INR 1.2 (0.9-1.1); Partial Thromboplastin Ratio 3.5; Prothrombin Time 12.3 Seconds (9.0-12.0)
[2018-11-16 18:16] LABS: Albumin Globulin Ratio 0.6 (0.9-2); Bilirubin,Total 0.6 mg/dl (0.2-1); Globulin 3.3 gm/dl (2.5-4.0); Total Protein 5.4 gm/dl (6.4-8.2)
[2018-11-16 18:18] LABS: Partial Thromboplastin Time 93.8 Seconds (21.0-31.0)
[2018-11-16] MEDS: Heparin Adult STANDARD Wt-Based Dextrose 5% 25,000 units/500 mL IV SCH (18:34)
--- NOTE | 2018-11-16 19:04 | Procedure Note ---
Procedure Note Date of Service November 16, 2018 Procedure Date: Noted above Procedure: Endotracheal intubation Pre-procedure Diagnosis: Hemodynamic instability, acute hypoxic respiratory failure Post-procedure Diagnosis: same as above Prior to Procedure: Informed Consent: emergent Attending Staff: Sy Pate DO The identity of the patient was confirmed and a bedside time out was performed. Description of Procedure: Patient was evaluated and required intubation for impending respiratory failure. The patient was prepared in the usual fashion. A #3 glide scope was used. A 7.5 mm inner diameter endotrachial tube was placed endotracheally to 22 cm at the teeth. A grade 1 view was obtained. The endotracheal tube was noted to pass through the vocal cords. Chest rise was bilateral. Bilateral breath sounds were heard without air sounds in the abdomen. Mist was noted in the endotracheal tube. End-tidal CO2 measurement was positive. Bronchoscopy shows proper endotracheal tube placement. Complications: None Findings: Not applicable Specimens: Not applicable Estimated blood loss: Zero Coding CPT Codes Resuscitation - Resuscitation: Endotracheal Intubation, emergency ([id number])
--- NOTE | 2018-11-16 19:07 | Procedure Note ---
Procedure Note Date of Service November 16, 2018 Procedure date: Noted above Procedure: Elective cardioversion Pre-procedure Diagnosis: Atrial fibrillation with rapid ventricular response Post-procedure Diagnosis: same as above Prior to Procedure: Informed Consent: The risks, benefits, indications, potential complications, and alternatives were explained to the patient and patient's and informed consent obtained. Attending Staff: Sy Pate DO Anesthesia: 100 mcg fentanyl IV x3, 2 mg Versed The identity of the patient was confirmed and a bedside time out was performed. Description of Procedure: After preparation with endotracheal intubation, cardiac monitoring and end-tidal CO2 monitoring paddles were placed in the anterior and posterior position. 2 synchronized cardioversion of 200 J followed by 360 was performed. Patient converted to a sinus rhythm upon the second cardioversion. Complications: None Patient tolerated the procedure well. Coding CPT Codes Resuscitation - Resuscitation: Cardioversion electric, ext ([id number])
--- NOTE | 2018-11-16 19:09 | Procedure Note ---
Procedure Note: Bronchoscopy Procedure Procedure date: November 16, 2018 Procedure: fiberoptic bronchoscopy Pre-procedure indication: Acute hypoxic respiratory failure, infiltrates on chest x-ray Post-procedure Diagnosis: same as above Prior to Procedure: Informed Consent: The risks, benefits, indications, potential complications, and alternatives were explained to the patient's and the patient and informed consent obtained. Attending Staff: Sy Pate DO Resident/APC: Tamie Skin Prep: Not applicable Anesthesia: IV fentanyl, IV Versed The identity of the patient was confirmed and a bedside time out was performed. Description of Procedure: Fiberoptic bronchoscopy was performed via endotracheal tube. Bronchioalveolar lavage bilateral lower lobes was performed. Findings included: Thick white secretions BAL was obtained from the left lower lobe and sent for studies. Complications: Mild suction trauma of the right middle lobe which had minor bleeding, this resolved with one instillation of cold saline Specimens: Bronchial washings sent for culture and Gram stain and culture. Estimated blood loss: Zero
[2018-11-16] MEDS ORDERED: THIAMINE HCL 300 MG in SYRINGE 9 ML IV SCH (21:00)
[2018-11-16] MEDS: THIAMINE HCL 300 MG in SODIUM CHLORIDE 0.9% 50 ML IV SCH (22:12)
[2018-11-16] MEDS: MIDAZOLAM HCL 1 MG/ML 2ML VIAL IV PRN (22:12)
[2018-11-16] MEDS: ROSUVASTATIN CALCIUM 20 MG TAB PO SCH (22:12)
[2018-11-17] MEDS: MIDAZOLAM HCL 1 MG/ML 2ML VIAL IV PRN ×7 (00:27→22:48)
[2018-11-17] MEDS: fentaNYL citrate 100 MCG/2 ML VIAL IV PRN ×8 (01:24→23:27)
[2018-11-17] MEDS: PHENYLEPHRINE HCL 20 MG in DEXTROSE 5% 500 ML IV SCH ×2 (01:28→13:11)
[2018-11-17] MEDS: HYDROCORTISONE SOD 50 MG in SYRINGE 0 ML IV SCH ×3 (02:26→17:29)
[2018-11-17 03:17] LABS: Hematocrit (blood only) 25.4 % (37-47); Hemoglobin 8.6 g/dL (12.0-16.0); Mean Corpuscular Hgb Conc 33.9 g/dL (32-36); Mean Corpuscular Volume 87.6 fL (80-100); Mean Platelet Volume 9.7 fL (7.4-10.4); Nucleated RBC # (auto) 0.04 K/uL (0-0); Nucleated RBC % (auto) 0.3 %; Platelet Count 182 K/uL (130-400); RDW Coefficient of Variation 15.6 % (11.5-14.5); RDW Standard Deviation 50.2 fL (36.4-46.3); White Blood Count 12.62 K/uL (4.8-10.8)
[2018-11-17 03:34] LABS: BUN Creatinine Ratio 9.1 (10-20); Calcium 6.5 mg/dl (8.5-10.1); Creatinine Clr Calc Pharmacy 11.7 ml/min; Est GFR (African American) 10.3; Est GFR (Non-African American) 8.9; Potassium 4.3 mmol/L (3.5-5.1)
[2018-11-17] MEDS: PIPERACILLIN/TAZOBACTAM 3.375 GM in DEXTROSE 5% 100 ML IV SCH ×2 (04:25→13:12)
[2018-11-17 05:32] LABS: Partial Thromboplastin Ratio > 5.1
--- NOTE | 2018-11-17 05:41 | Critical Care Progress Note ---
Date of Service November 17, 2018 Assessment & Plan (1) SHAZIA (acute kidney injury): Reason Critically Ill: 83-year-old female with recent colectomy for recurrent adenocarcinoma of colon, who presented to the ICU postoperatively following an ex-lap which revealed multiple small bowel infarcts and patient underwent small bowel resect, ileocolic resection, mucous fistula, and ileostomy has been septic and requiring intubation Neuro - Anxiety Has been anxious, currently sedated on vent -Versed 2 mg every 2 as needed fentanyl 100 mcg every 2 as needed Agitated this morning, but resolved with an extra 2 mg of versed. Duloxetine: Holding: Prolonged QT Gabapentin: Holding in the setting of acute kidney injury Ambien: Holding Cardiac - AVR/CAD: Status post AVR and CABG x3 in 2016, continue Plavix Hypertension: Losartan held for renal failure, -Holding to hypertensive medications secondary to sepsis associated hypotension Sepsis associated hypotension: Resolved Atrial fibrillation with rapid ventricular response -Discontinuing amiodarone secondary to significantly prolonged QTC -Tolerated 15 mg metoprolol and 2.5 mg aliquots -Cardioversion x2 -This is the second episode of atrial fibrillation with rapid ventricular response, she cannot tolerate the rapid ventricular response -Currently rate controlled, will consider beta-blockade versus digoxin if patient becomes tachycardic again Hypotension: Multifactorial -Transition pressors to [place]-Synephrine for hopeful reflex bradycardia response -Trend lactates understandably she is predisposed to mesenteric ischemia I hope to de-escalate the alpha stimulation as soon as possible Prolonged QTC -Discontinuing Zofran -Avoid QT prolonging medications Respiratory - -Reintubated secondary to atrial fibrillation with rapid ventricular response and acute decompensation -Bronchoscopy for airway clearance sent BAL GI - Colorectal adenocarcinoma-S/P partial colectomy with ileocolic anastomosis 11/07, developed small bowel infarcts this a.m. and required small bowel resection and ileocolic resection, mucous fistula, ileostomy. -Discussed with Dr. Multani -Core safe in place -Considered restarting trickle feeds however with the increase pressors we will hold inferior nonocclusive bowel ischemia -We will start trickle feeds as soon as possible Hypoalbuminemia GI prophylaxis: Pepcid RENAL/LYTES - Acute renal failure/metabolic acidosis: Patient developed SHAZIA on CKD and has become oliguric -Discussed with Dr. Livingston -Did not tolerate full run of dialysis today. -Hemodialysis catheter placed -Renal ultrasound showed no obstruction, few renal cyst, ascites -Holding losartan, avoiding nephrotoxic agents CVP currently 12 no additional fluids at this time - Figueroa for strict I's and O's, currently making urine at .11 ml/kg/hour Will continue to monitor patient's renal function with regards to need for dialysis ENDO - DM: Continuing insulin infusion -ICU hypoglycemic protocol HEME - Heparin infusion for recurrent atrial fibrillation ID - Currently on Zosyn -Repeat blood cultures with fungal culture -BAL sent today LINES/IV ACCESS - Right IJ: Placed in the operating room Left IJ temporary HD cath placed six 12/28 Endotracheal tube 11/16/2018 DVT PROPHYLAXIS - Systemic heparin, SCDs (2) Acute hemodialysis patient: (3) S/P bronchoscopy with bronchoalveolar lavage: (4) Atrial fibrillation status post cardioversion: (5) History of cardioversion: (6) Post-operative state: (7) Atrial fibrillation with RVR: (8) Acute hypoxemic respiratory failure: (9) Sepsis associated hypotension: (10) S/P admission to ICU (intensive care unit): (11) Small bowel infarction: (12) History of aortic valve replacement: (13) Acute respiratory failure with hypoxia: (14) Stage III chronic kidney disease: (15) Depression with anxiety: (16) DVT prophylaxis: (17) History of CVA (cerebrovascular accident): (18) CAD (coronary artery disease): (19) Hypertension: (20) GERD (gastroesophageal reflux disease): (21) Acute renal failure: (22) Recurrent adenocarcinoma of colorectal region: (23) Anxiety: Supervising Physician Co-Signing Physician Notes Dr. Willett was resident physician during care of patient. I separately evaluated patient for schneider portions of the history and the exam. I was present during the critical portion of medical decision making, and I discussed the case with the resident. I generally agree with the findings and plan. Patient stabilizing, heart Rhythm is normal sinus, anticipate dialysis later today oxygenation improving, will consider trickle feeds after dialysis and hopefully will be able to decrease vasoactive requirements, I still believe the patient is at risk for nonocclusive bowel ischemia in the setting of vasoactive medications, if she tolerates dialysis well we will certainly consider proceeding with extubation status post bronchoscopy yesterday with sick mucoid impaction clearance. I have personally spent 45 minutes of critical care time in the direct management of this patient. This is a life/limb threatening event. This includes time spent evaluating patient, direct bedside care, chart review, placing orders, interpretation of diagnostic studies, discussion with consultants, patient, and/or family members regarding treatment decisions, as well as other required patient management activities. This time is exclusive of all separately billable procedures, and teaching time and separate from and in addition to any other critical care service time. Update 1500: Patient had been on dialysis or for approximately 45 minutes and then flipped into atrial fibrillation with rapid ventricular response with rates again up to 180, we additionally gave fentanyl and proceeded with vecuronium for neuromuscular blockade as the patient appeared somewhat agitated and I want to remove his many variables from this process is possible. She was administered 5 mg of metoprolol which brought her heart rates to the 120s and 130s respectively and we have held levo fed at this point in case there is catecholamine excess contributing to the atrial fibrillation. She definitively requires dialysis, she is not producing urine her creatinine is now 4.35. Yesterday she received a total of 15 mg metoprolol and then converted to normal sinus rhythm. Amiodarone has been held secondary to prolonged QTC and was largely ineffective previously. Initially yesterday she for required cardioversion I am hoping to avoid cardioversion this time and medically manage the atrial fibrillation, if we have a significant drop in her blood pressure as we did with rapid ventricular response previously we may necessitate another defibrillation/cardioversion. Update 1600 updated family regarding treatment options. Discussed CVVH which would have to be done at different facility versus attempted dialysis again tomorrow. prefers to try again tomorrow with regular dialysis. I am concerned about a poor prognosis. I have personally spent 95 minutes of critical care time in the direct management of this patient. This is a life/limb threatening event. This includes time spent evaluating patient, direct bedside care, chart review, placing orders, interpretation of diagnostic studies, discussion with consultants, patient, and/or family members regarding treatment decisions, as well as other required patient management activities. This time is exclusive of all separately billable procedures, and teaching time and separate from and in addition to any other critical care service time. Subjective Patient remains intubated this morning, though when I initially came to see her she was very agitated and she had to be monitored by a nurse for fear of hurting herself or removing medical lines. Gave extra dose of versed during agitation which calmed her. Review of Systems Review of Systems: Unobtainable due to endotracheal tube Physical Exam Constitutional: + acute distress, + ill appearing and + frail appearing; + uncooperative and + uncomfortable Eyes: PERRL, conjunctivae normal, anicteric sclerae (injected, erythematous) Respiratory: intubated and ventilated, breath sounds in all lung perrin Cardiovascular: Rate/Rhythm: regular rate and regular rhythm; not tachycardic Gastrointestinal (Abdomen): Abdomen bandaged from exploratory lap, ileostomy and mucus fistula in place draining well, blood present. Incision evaluated by surgeon who was happy with it. Results & Data Vital Signs (Past 12 Hours) Vital Signs Temp Pulse Resp BP Pulse Ox 11/17/18 05:21 70 16 100 11/17/18 04:00 65 110/54 L 11/17/18 03:45 68 17 100 11/17/18 02:18 65 101/46 L 100 11/17/18 02:16 71 98/49 L 100 11/17/18 02:14 67 96/49 L 100 11/17/18 02:12 69 103/61 100 11/17/18 02:10 71 98/61 L 100 11/17/18 02:08 65 100/55 L 100 11/17/18 02:06 74 105/57 L 100 11/17/18 02:04 71 101/56 L 100 11/17/18 02:02 65 98/50 L 100 11/17/18 02:01 76 100 11/17/18 02:00 77 97/59 L 100 11/17/18 01:58 72 99/46 L 100 11/17/18 01:56 79 93/56 L 100 11/17/18 01:54 75 98/47 L 100 11/17/18 01:52 72 105/57 L 100 11/17/18 01:50 73 98/47 L 99 11/17/18 01:48 94 H 94/50 L 100 11/17/18 01:46 78 105/57 L 100 11/17/18 01:45 67 96/48 L 100 11/17/18 01:42 71 108/56 L 100 11/17/18 01:40 69 103/55 L 100 11/17/18 01:39 78 95/55 L 100 11/17/18 01:36 81 102/57 L 100 11/17/18 01:34 77 104/59 L 99 11/17/18 01:32 71 99/57 L 100 11/17/18 01:31 74 100 11/17/18 01:30 81 115/61 100 11/17/18 01:28 85 120/58 L 100 11/17/18 01:27 90 109/73 100 11/17/18 01:24 94 H 112/56 L 100 11/17/18 01:23 92 H 101/70 100 11/17/18 01:20 78 102/54 L 99 11/17/18 01:18 76 95/58 L 100 11/17/18 01:16 78 97/60 L 99 11/17/18 01:14 82 97/55 L 100 11/17/18 01:12 74 98/54 L 100 11/17/18 01:10 73 98/54 L 100 11/17/18 01:08 72 91/51 L 100 11/17/18 01:06 74 102/52 L 99 11/17/18 01:04 75 99/51 L 100 11/17/18 01:02 78 95/55 L 100 11/17/18 01:01 71 100 11/17/18 01:00 80 93/54 L 100 11/17/18 00:58 72 91/55 L 100 11/17/18 00:56 72 92/52 L 99 11/17/18 00:54 76 96/50 L 100 11/17/18 00:52 73 83/53 L 100 11/17/18 00:50 81 89/45 L 99 11/17/18 00:48 72 95/50 L 99 11/17/18 00:47 82 97/49 L 100 11/17/18 00:44 74 99/56 L 100 11/17/18 00:42 79 92/53 L 100 11/17/18 00:40 81 16 96/58 L 99 11/17/18 00:38 79 84/44 L 100 11/17/18 00:36 81 77/47 L 99 11/17/18 00:34 80 83/45 L 99 11/17/18 00:32 83 83/50 L 99 11/17/18 00:31 82 100 11/17/18 00:30 90 85/54 L 99 11/17/18 00:29 88 81/42 L 100 11/17/18 00:26 80 81/51 L 100 11/17/18 00:24 84 84/48 L 100 11/17/18 00:22 82 94/52 L 99 11/17/18 00:20 84 93/49 L 99 11/17/18 00:19 92 H 105/60 100 11/17/18 00:13 92 H 114/85 100 11/17/18 00:11 87 94/64 L 100 11/17/18 00:08 92 H 100/60 100 11/17/18 00:06 82 96/56 L 100 11/17/18 00:04 91 H 90/59 L 100 11/17/18 00:02 79 103/57 L 100 11/17/18 00:01 82 100 11/17/18 00:00 36.4 C L 82 109/51 L 100 11/16/18 23:58 90 114/59 L 100 11/16/18 23:56 85 104/59 L 100 11/16/18 23:54 81 109/59 L 100 11/16/18 23:52 87 118/67 100 11/16/18 23:50 80 102/61 100 11/16/18 23:48 77 109/53 L 100 11/16/18 23:46 78 124/46 L 100 11/16/18 23:45 78 100 11/16/18 23:44 80 110/57 L 100 11/16/18 23:42 79 106/65 100 11/16/18 23:40 78 105/54 L 100 11/16/18 23:38 88 118/54 L 100 11/16/18 23:36 79 114/59 L 100 11/16/18 23:34 79 112/73 100 11/16/18 23:32 89 101/59 L 100 11/16/18 23:31 78 100 11/16/18 23:30 91 H 112/67 100 11/16/18 23:28 87 100/59 L 100 11/16/18 23:26 77 105/58 L 100 11/16/18 23:24 82 109/69 100 11/16/18 23:23 80 114/46 L 100 11/16/18 23:20 83 113/63 100 11/16/18 23:18 90 117/57 L 100 11/16/18 23:17 81 107/61 100 11/16/18 23:14 88 107/66 100 11/16/18 23:12 79 102/64 100 11/16/18 23:10 81 110/57 L 100 11/16/18 23:08 88 111/65 100 11/16/18 23:06 85 113/61 100 11/16/18 23:04 78 105/62 100 11/16/18 23:03 80 115/68 100 11/16/18 23:01 84 100 11/16/18 23:00 83 129/52 L 100 11/16/18 22:58 82 103/58 L 100 11/16/18 22:57 79 106/58 L 100 11/16/18 22:54 93 H 109/64 100 11/16/18 22:52 81 102/57 L 100 11/16/18 22:50 88 80/62 L 100 11/16/18 22:48 85 102/65 100 11/16/18 22:46 80 108/59 L 100 11/16/18 22:45 85 100 11/16/18 22:44 84 94/56 L 100 11/16/18 22:42 77 89/48 L 100 11/16/18 22:40 82 79/49 L 100 11/16/18 22:38 79 80/55 L 100 11/16/18 22:36 86 90/49 L 100 11/16/18 22:34 81 82/47 L 100 11/16/18 22:33 79 89/42 L 100 11/16/18 22:31 80 100 11/16/18 22:30 82 89/54 L 100 11/16/18 22:28 77 92/46 L 100 11/16/18 22:26 78 95/57 L 100 11/16/18 22:24 76 17 94/46 L 100 11/16/18 22:22 81 87/43 L 100 11/16/18 22:20 91 H 86/57 L 100 11/16/18 22:18 89 91/49 L 100 11/16/18 22:16 89 94/54 L 100 11/16/18 22:14 95 H 89/52 L 100 11/16/18 22:12 74 95/49 L 100 11/16/18 22:10 90 104/60 100 11/16/18 22:09 96 H 107/54 L 100 11/16/18 22:06 91 H 117/58 L 100 11/16/18 22:04 94 H 138/66 100 11/16/18 22:01 97 H 99 11/16/18 22:00 92 H 114/64 100 11/16/18 21:55 96 H 103/41 L 100 11/16/18 21:51 87 140/71 100 11/16/18 21:47 98 H 128/62 100 11/16/18 21:44 91 H 100 11/16/18 21:43 88 106/56 L 100 11/16/18 21:40 82 113/57 L 100 11/16/18 21:38 78 116/64 100 11/16/18 21:36 83 113/62 100 11/16/18 21:35 82 103/69 100 11/16/18 21:32 79 107/58 L 100 11/16/18 21:31 74 100 11/16/18 21:30 83 110/68 100 11/16/18 21:28 80 112/57 L 100 11/16/18 21:27 89 110/62 100 11/16/18 21:24 81 102/64 100 11/16/18 21:22 85 104/52 L 100 11/16/18 21:20 82 110/63 100 11/16/18 21:18 78 119/58 L 100 11/16/18 21:16 78 108/68 100 11/16/18 21:14 100 H 111/57 L 100 11/16/18 21:12 77 114/66 100 11/16/18 21:11 86 109/61 100 11/16/18 21:08 79 111/59 L 100 11/16/18 21:06 78 109/59 L 100 11/16/18 21:04 80 102/57 L 100 11/16/18 21:02 78 108/61 100 11/16/18 21:01 92 H 100 11/16/18 21:00 83 104/58 L 100 11/16/18 20:58 75 104/58 L 100 11/16/18 20:56 84 104/63 100 11/16/18 20:54 79 108/57 L 100 11/16/18 20:52 84 109/59 L 100 11/16/18 20:51 89 109/60 100 11/16/18 20:48 78 105/65 100 11/16/18 20:46 81 107/60 100 11/16/18 20:45 80 100 11/16/18 20:44 84 110/66 100 11/16/18 20:42 84 107/70 100 11/16/18 20:40 88 111/61 100 11/16/18 20:38 92 H 123/71 100 11/16/18 20:36 90 122/73 100 11/16/18 20:34 95 H 135/82 100 11/16/18 20:32 98 H 117/95 100 11/16/18 20:30 96 H 100 11/16/18 20:29 96 H 99/72 L 100 11/16/18 20:27 92 H 110/68 100 11/16/18 20:25 95 H 127/73 100 11/16/18 20:23 90 115/75 100 11/16/18 20:21 96 H 113/75 100 11/16/18 20:19 85 104/74 100 11/16/18 20:17 93 H 110/68 100 11/16/18 20:15 82 95/86 L 100 11/16/18 20:13 85 129/72 100 11/16/18 20:12 16 11/16/18 20:11 85 120/63 100 11/16/18 20:08 83 112/66 100 11/16/18 20:06 94 H 119/74 100 11/16/18 20:05 83 84/42 L 100 11/16/18 20:03 92 H 118/59 L 100 11/16/18 20:01 74 100 11/16/18 20:00 36.5 C 78 110/62 100 11/16/18 19:58 89 119/64 100 11/16/18 19:57 94 H 109/67 100 11/16/18 19:55 90 129/60 100 11/16/18 19:53 83 118/51 L 100 11/16/18 19:50 82 97/62 L 100 11/16/18 19:48 91 H 106/53 L 100 11/16/18 19:46 91 H 101/62 100 11/16/18 19:44 92 H 109/72 100 11/16/18 19:42 81 121/63 100 11/16/18 19:40 79 113/52 L 100 11/16/18 19:38 100 H 116/69 100 11/16/18 19:37 94 H 108/66 100 11/16/18 19:35 91 H 113/51 L 100 11/16/18 19:32 91 H 119/79 100 11/16/18 19:31 92 H 100 11/16/18 19:30 92 H 107/71 100 11/16/18 19:28 88 121/68 100 11/16/18 19:26 80 102/66 100 11/16/18 19:24 79 110/60 100 11/16/18 19:22 84 100/57 L 100 11/16/18 19:20 81 16 104/62 100 11/16/18 19:18 79 103/53 L 100 11/16/18 19:16 79 94/60 L 100 11/16/18 19:14 87 100/56 L 100 11/16/18 19:12 76 100/55 L 100 11/16/18 19:10 76 102/51 L 100 11/16/18 18:39 140 H 70/40 L 11/16/18 18:22 16 11/16/18 18:02 134 H 77/40 L 11/16/18 17:57 131 H 80/42 L 11/16/18 17:56 145 H 16 100 Critical Care Time Critical Care Time: Yes Total Critical Care Time: 95
[2018-11-17 05:58] LABS: Partial Thromboplastin Time > 139.0 Seconds (21.0-31.0)
[2018-11-17] MEDS ORDERED: MIDAZOLAM HCL 5 MG/ML 1 ML VIAL IV STA (06:50)
[2018-11-17 07:07] LABS: Partial Thromboplastin Ratio 3.6
[2018-11-17 07:20] LABS: Partial Thromboplastin Time 96.8 Seconds (21.0-31.0)
[2018-11-17] MEDS: FAMOTIDINE 20 MG in SYRINGE 3 ML IV SCH (08:06)
[2018-11-17] MEDS: CLOPIDOGREL BISULFATE 75 MG TAB PO SCH (08:07)
[2018-11-17] MEDS: INSULIN ASPART 100 UNITS/ML 3 ML PEN SC SCH ×4 (08:08→22:25)
--- NOTE | 2018-11-17 08:37 | XRay Report ---
XR chest 1V portable CLINICAL HISTORY: 83 years-old Female presenting with Hypoxemic Respiratory failure. TECHNIQUE: Portable semiupright AP view of the chest was obtained. COMPARISON: 11/16/2018. FINDINGS: Right internal jugular central venous catheter terminates at the right brachiocephalic vein. Feeding catheter descends below the diaphragm, guidewire removed. Left internal jugular dialysis catheter ter minates in the left brachiocephalic vein. Interval intubation with the endotracheal tube tube termina ting over 3 cm from the ashia. Median sternotomy wires and prosthetic aortic valve noted. Atherosclerosis of aortic arch. Cardiac silhouette mildly enlarged. Decreased pulmonary basilar promi nence. Elevation of the right hemidiaphragm. Increased lung volumes in comparison to prior. Bibasilar opacities likely in part layering effusions. Slightly improved aeration of the left lung base. Dege nerative changes of the thoracic spine. Upper abdomen normal. IMPRESSION: 1. Lines and tubes positioning as above. 2. Bilateral layering pleural effusions. 3. Cardiomegaly with decreased volume overload. 4. Improved aeration of the left lung base status post intubation. Electronically signed by: Tito Ramirez M.D. 11/17/2018 8:36 AM
[2018-11-17] MEDS: THIAMINE HCL 300 MG in SODIUM CHLORIDE 0.9% 50 ML IV SCH ×2 (08:54→13:11)
[2018-11-17] MEDS ORDERED: AZITHROMYCIN 250 MG in DEXTROSE 5% 250 ML IV SCH (09:00)
--- NOTE | 2018-11-17 09:59 | Nephrology Progress Note ---
Date of Service November 17, 2018 Assessment & Plan (1) Acute renal failure: -- ATN -- No signs of renal recovery -- [facility] HD catheter placed by Dr. 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 She continues to struggle with agitation requiring medications for pain and sedation ~ q 1 hour. s/p cardioversion yesterday. Remains on IV vasopressor support. Oliguric. No fevers overnight. Family at the bedside. HD treatment stopped early yesterday due to hemodynamic instability. Net UF 0 L. Review of Systems Review of Systems: Unobtainable due to endotracheal tube and Unobtainable due to reduced consciousness Physical Exam Constitutional: + ill appearing Eyes: PERRL, conjunctivae normal, anicteric sclerae no scleral abnormality and no corneal abnormality ENMT: ETT Neck: trachea midline LIJ HD catheter, R CVC Respiratory: Auscultation: + bronchovesicular breath sounds Cardiovascular: Rate/Rhythm: regular rate and regular rhythm Extremities: no edema Gastrointestinal (Abdomen): Inspection/Auscultation: + abdomen distended Percussion/Palpation: abdomen soft (hypoactive bowel sounds, clean surgical dressing in place) Musculoskeletal: Extremities: no cyanosis, no clubbing and no petechiae Skin: normal turgor; no rashes Genitourinary: Figueroa draining concentrated yellow urine Results & Data Vital Signs (Past 12 Hours) Vital Signs Temp Pulse Pulse Resp BP BP BP 11/17/18 08:05 75 16 11/17/18 08:00 36.8 C 75 88 18 119/76 119/76 99/72 L 11/17/18 07:18 74 99/58 L 11/17/18 07:16 75 99/53 L 11/17/18 07:14 75 103/50 L 11/17/18 07:12 75 99/52 L 11/17/18 07:10 76 103/48 L 11/17/18 07:08 79 112/53 L 11/17/18 07:06 78 104/59 L 11/17/18 07:05 78 104/56 L 11/17/18 07:03 80 111/56 L 11/17/18 07:01 80 110/70 11/17/18 07:00 83 11/17/18 06:58 86 134/43 L 11/17/18 06:55 91 H 145/79 H 11/17/18 06:53 89 135/74 11/17/18 06:51 88 117/82 11/17/18 06:49 88 110/76 11/17/18 06:46 86 132/72 11/17/18 06:45 90 125/82 11/17/18 06:42 88 102/78 11/17/18 06:41 84 111/70 11/17/18 06:39 81 119/56 L 11/17/18 06:37 81 123/70 11/17/18 06:35 82 121/58 L 11/17/18 06:32 80 111/53 L 11/17/18 06:30 84 11/17/18 06:29 85 102/49 L 11/17/18 06:27 72 106/50 L 11/17/18 06:24 76 101/57 L 11/17/18 06:22 70 101/59 L 11/17/18 06:21 84 100/57 L 11/17/18 06:19 82 94/65 L 11/17/18 06:17 74 109/51 L 11/17/18 06:14 81 111/63 11/17/18 06:12 83 114/71 11/17/18 06:11 91 H 125/70 11/17/18 06:09 83 120/68 11/17/18 06:07 81 114/57 L 11/17/18 06:05 80 108/59 L 11/17/18 06:03 83 102/59 L 11/17/18 06:01 73 114/46 L 11/17/18 06:00 81 11/17/18 05:59 74 94/56 L 11/17/18 05:56 80 100/56 L 11/17/18 05:54 70 88/52 L 11/17/18 05:52 79 99/58 L 11/17/18 05:50 69 102/56 L 11/17/18 05:48 72 96/54 L 11/17/18 05:46 75 102/55 L 11/17/18 05:44 76 87/66 L 11/17/18 05:42 70 108/55 L 11/17/18 05:21 70 16 11/17/18 04:18 81 109/68 11/17/18 04:16 80 99/63 L 11/17/18 04:12 76 105/53 L 11/17/18 04:10 66 105/55 L 11/17/18 04:08 70 94/54 L 11/17/18 04:06 75 96/58 L 11/17/18 04:04 97 H 93/56 L 11/17/18 04:02 71 89/53 L 11/17/18 04:01 36.9 C 85 83/58 L 11/17/18 04:00 81 110/54 L 11/17/18 03:58 81 90/52 L 11/17/18 03:56 69 96/50 L 11/17/18 03:54 76 94/56 L 11/17/18 03:52 72 100/54 L 11/17/18 03:50 74 101/57 L 11/17/18 03:48 69 98/57 L 11/17/18 03:46 67 97/55 L 11/17/18 03:45 68 17 11/17/18 03:44 74 97/56 L 11/17/18 03:42 70 101/59 L 11/17/18 03:40 65 105/56 L 11/17/18 03:39 86 101/59 L 11/17/18 03:36 68 105/55 L 11/17/18 03:34 68 103/54 L 11/17/18 03:32 71 104/57 L 11/17/18 03:31 72 11/17/18 03:30 80 104/61 11/17/18 03:28 69 105/56 L 11/17/18 03:26 67 102/55 L 11/17/18 03:24 68 105/53 L 11/17/18 03:22 71 106/58 L 11/17/18 03:20 76 116/51 L 11/17/18 03:19 73 110/58 L 11/17/18 03:17 76 123/61 11/17/18 03:14 81 119/65 11/17/18 03:13 87 107/90 11/17/18 03:11 90 117/66 11/17/18 03:08 87 122/75 11/17/18 03:07 88 116/73 11/17/18 03:04 68 108/61 11/17/18 03:02 67 103/61 11/17/18 03:01 72 11/17/18 03:00 65 101/57 L 11/17/18 02:59 80 104/65 11/17/18 02:56 67 98/57 L 11/17/18 02:54 72 104/54 L 11/17/18 02:52 68 103/50 L 11/17/18 02:50 72 104/57 L 11/17/18 02:48 68 111/57 L 11/17/18 02:46 71 108/61 11/17/18 02:44 78 104/58 L 11/17/18 02:18 65 101/46 L 11/17/18 02:16 71 98/49 L 11/17/18 02:14 67 96/49 L 11/17/18 02:12 69 103/61 11/17/18 02:10 71 98/61 L 11/17/18 02:08 65 100/55 L 11/17/18 02:06 74 105/57 L 11/17/18 02:04 71 101/56 L 11/17/18 02:02 65 98/50 L 11/17/18 02:01 76 11/17/18 02:00 77 97/59 L 11/17/18 01:58 72 99/46 L 11/17/18 01:56 79 93/56 L 11/17/18 01:54 75 98/47 L 11/17/18 01:52 72 105/57 L 11/17/18 01:50 73 98/47 L 11/17/18 01:48 94 H 94/50 L 11/17/18 01:46 78 105/57 L 11/17/18 01:45 67 96/48 L 11/17/18 01:42 71 108/56 L 11/17/18 01:40 69 103/55 L 11/17/18 01:39 78 95/55 L 11/17/18 01:36 81 102/57 L 11/17/18 01:34 77 104/59 L 11/17/18 01:32 71 99/57 L 11/17/18 01:31 74 11/17/18 01:30 81 115/61 11/17/18 01:28 85 120/58 L 11/17/18 01:27 90 109/73 11/17/18 01:24 94 H 112/56 L 11/17/18 01:23 92 H 101/70 11/17/18 01:20 78 102/54 L 11/17/18 01:18 76 95/58 L 11/17/18 01:16 78 97/60 L 11/17/18 01:14 82 97/55 L 11/17/18 01:12 74 98/54 L 11/17/18 01:10 73 98/54 L 11/17/18 01:08 72 91/51 L 11/17/18 01:06 74 102/52 L 11/17/18 01:04 75 99/51 L 11/17/18 01:02 78 95/55 L 11/17/18 01:01 71 11/17/18 01:00 80 93/54 L 11/17/18 00:58 72 91/55 L 11/17/18 00:56 72 92/52 L 11/17/18 00:54 76 96/50 L 11/17/18 00:52 73 83/53 L 11/17/18 00:50 81 89/45 L 11/17/18 00:48 72 95/50 L 11/17/18 00:47 82 97/49 L 11/17/18 00:44 74 99/56 L 11/17/18 00:42 79 92/53 L 11/17/18 00:40 81 16 96/58 L 11/17/18 00:38 79 84/44 L 11/17/18 00:36 81 77/47 L 11/17/18 00:34 80 83/45 L 11/17/18 00:32 83 83/50 L 11/17/18 00:31 82 11/17/18 00:30 90 85/54 L 11/17/18 00:29 88 81/42 L 11/17/18 00:26 80 81/51 L 11/17/18 00:24 84 84/48 L 11/17/18 00:22 82 94/52 L 11/17/18 00:20 84 93/49 L 11/17/18 00:19 92 H 105/60 11/17/18 00:13 92 H 114/85 11/17/18 00:11 87 94/64 L 11/17/18 00:08 92 H 100/60 11/17/18 00:06 82 96/56 L 11/17/18 00:04 91 H 90/59 L 11/17/18 00:02 79 103/57 L 11/17/18 00:01 82 11/17/18 00:00 36.4 C L 82 109/51 L 11/16/18 23:58 90 114/59 L 11/16/18 23:56 85 104/59 L 11/16/18 23:54 81 109/59 L 11/16/18 23:52 87 118/67 11/16/18 23:50 80 102/61 11/16/18 23:48 77 109/53 L 11/16/18 23:46 78 124/46 L 11/16/18 23:45 78 11/16/18 23:44 80 110/57 L 11/16/18 23:42 79 106/65 11/16/18 23:40 78 105/54 L 11/16/18 23:38 88 118/54 L 11/16/18 23:36 79 114/59 L 11/16/18 23:34 79 112/73 11/16/18 23:32 89 101/59 L 11/16/18 23:31 78 11/16/18 23:30 91 H 112/67 11/16/18 23:28 87 100/59 L 11/16/18 23:26 77 105/58 L 11/16/18 23:24 82 109/69 11/16/18 23:23 80 114/46 L 11/16/18 23:20 83 113/63 11/16/18 23:18 90 117/57 L 11/16/18 23:17 81 107/61 11/16/18 23:14 88 107/66 11/16/18 23:12 79 102/64 11/16/18 23:10 81 110/57 L 11/16/18 23:08 88 111/65 11/16/18 23:06 85 113/61 11/16/18 23:04 78 105/62 11/16/18 23:03 80 115/68 11/16/18 23:01 84 11/16/18 23:00 83 129/52 L 11/16/18 22:58 82 103/58 L 11/16/18 22:57 79 106/58 L 11/16/18 22:54 93 H 109/64 11/16/18 22:52 81 102/57 L 11/16/18 22:50 88 80/62 L 11/16/18 22:48 85 102/65 11/16/18 22:46 80 108/59 L 11/16/18 22:45 85 11/16/18 22:44 84 94/56 L 11/16/18 22:42 77 89/48 L 11/16/18 22:40 82 79/49 L 11/16/18 22:38 79 80/55 L 11/16/18 22:36 86 90/49 L 11/16/18 22:34 81 82/47 L 11/16/18 22:33 79 89/42 L 11/16/18 22:31 80 11/16/18 22:30 82 89/54 L 11/16/18 22:28 77 92/46 L 11/16/18 22:26 78 95/57 L 11/16/18 22:24 76 17 94/46 L 11/16/18 22:22 81 87/43 L 11/16/18 22:20 91 H 86/57 L 11/16/18 22:18 89 91/49 L 11/16/18 22:16 89 94/54 L 11/16/18 22:14 95 H 89/52 L 11/16/18 22:12 74 95/49 L 11/16/18 22:10 90 104/60 11/16/18 22:09 96 H 107/54 L 11/16/18 22:06 91 H 117/58 L 11/16/18 22:04 94 H 138/66 11/16/18 22:01 97 H 11/16/18 22:00 92 H 114/64 Pulse Ox 11/17/18 08:05 100 11/17/18 08:00 99 11/17/18 07:18 100 11/17/18 07:16 100 11/17/18 07:14 100 11/17/18 07:12 100 11/17/18 07:10 100 11/17/18 07:08 99 11/17/18 07:06 99 11/17/18 07:05 100 11/17/18 07:03 100 11/17/18 07:01 100 11/17/18 07:00 11/17/18 06:58 100 11/17/18 06:55 97 11/17/18 06:53 97 11/17/18 06:51 99 11/17/18 06:49 99 11/17/18 06:46 100 11/17/18 06:45 100 11/17/18 06:42 99 11/17/18 06:41 100 11/17/18 06:39 100 11/17/18 06:37 99 11/17/18 06:35 100 11/17/18 06:32 99 11/17/18 06:30 100 11/17/18 06:29 100 11/17/18 06:27 100 11/17/18 06:24 11/17/18 06:22 100 11/17/18 06:21 100 11/17/18 06:19 99 11/17/18 06:17 100 11/17/18 06:14 100 11/17/18 06:12 100 11/17/18 06:11 99 11/17/18 06:09 94 11/17/18 06:07 100 11/17/18 06:05 100 11/17/18 06:03 100 11/17/18 06:01 100 11/17/18 06:00 99 11/17/18 05:59 100 11/17/18 05:56 100 11/17/18 05:54 100 11/17/18 05:52 100 11/17/18 05:50 100 11/17/18 05:48 100 11/17/18 05:46 100 11/17/18 05:44 100 11/17/18 05:42 100 11/17/18 05:21 100 11/17/18 04:18 100 11/17/18 04:16 99 11/17/18 04:12 100 11/17/18 04:10 99 11/17/18 04:08 11/17/18 04:06 11/17/18 04:04 100 11/17/18 04:02 100 11/17/18 04:01 100 11/17/18 04:00 100 11/17/18 03:58 100 11/17/18 03:56 11/17/18 03:54 100 11/17/18 03:52 100 11/17/18 03:50 100 11/17/18 03:48 100 11/17/18 03:46 100 11/17/18 03:45 100 11/17/18 03:44 100 11/17/18 03:42 100 11/17/18 03:40 100 11/17/18 03:39 100 11/17/18 03:36 100 11/17/18 03:34 100 11/17/18 03:32 100 11/17/18 03:31 100 11/17/18 03:30 11/17/18 03:28 100 11/17/18 03:26 100 11/17/18 03:24 100 11/17/18 03:22 100 11/17/18 03:20 100 11/17/18 03:19 100 11/17/18 03:17 100 11/17/18 03:14 100 11/17/18 03:13 100 11/17/18 03:11 100 11/17/18 03:08 100 11/17/18 03:07 94 11/17/18 03:04 100 11/17/18 03:02 100 11/17/18 03:01 100 11/17/18 03:00 99 11/17/18 02:59 100 11/17/18 02:56 100 11/17/18 02:54 100 11/17/18 02:52 100 11/17/18 02:50 100 11/17/18 02:48 100 11/17/18 02:46 100 11/17/18 02:44 100 11/17/18 02:18 100 11/17/18 02:16 100 11/17/18 02:14 100 11/17/18 02:12 100 11/17/18 02:10 100 11/17/18 02:08 100 11/17/18 02:06 100 11/17/18 02:04 100 11/17/18 02:02 100 11/17/18 02:01 100 11/17/18 02:00 100 11/17/18 01:58 100 11/17/18 01:56 100 11/17/18 01:54 100 11/17/18 01:52 100 11/17/18 01:50 99 11/17/18 01:48 100 11/17/18 01:46 100 11/17/18 01:45 100 11/17/18 01:42 100 11/17/18 01:40 100 11/17/18 01:39 100 11/17/18 01:36 100 11/17/18 01:34 99 11/17/18 01:32 100 11/17/18 01:31 100 11/17/18 01:30 100 11/17/18 01:28 100 11/17/18 01:27 100 11/17/18 01:24 100 11/17/18 01:23 100 11/17/18 01:20 99 11/17/18 01:18 100 11/17/18 01:16 99 11/17/18 01:14 100 11/17/18 01:12 100 11/17/18 01:10 100 11/17/18 01:08 100 11/17/18 01:06 99 11/17/18 01:04 100 11/17/18 01:02 100 11/17/18 01:01 100 11/17/18 01:00 100 11/17/18 00:58 100 11/17/18 00:56 99 11/17/18 00:54 100 11/17/18 00:52 100 11/17/18 00:50 99 11/17/18 00:48 99 11/17/18 00:47 100 11/17/18 00:44 100 11/17/18 00:42 100 11/17/18 00:40 99 11/17/18 00:38 100 11/17/18 00:36 99 11/17/18 00:34 99 11/17/18 00:32 99 11/17/18 00:31 100 11/17/18 00:30 99 11/17/18 00:29 100 11/17/18 00:26 100 11/17/18 00:24 100 11/17/18 00:22 99 11/17/18 00:20 99 11/17/18 00:19 100 11/17/18 00:13 100 11/17/18 00:11 100 11/17/18 00:08 100 11/17/18 00:06 100 11/17/18 00:04 100 11/17/18 00:02 100 11/17/18 00:01 100 11/17/18 00:00 100 11/16/18 23:58 100 11/16/18 23:56 100 11/16/18 23:54 100 11/16/18 23:52 100 11/16/18 23:50 100 11/16/18 23:48 100 11/16/18 23:46 100 11/16/18 23:45 100 11/16/18 23:44 100 11/16/18 23:42 100 11/16/18 23:40 100 11/16/18 23:38 100 11/16/18 23:36 100 11/16/18 23:34 100 11/16/18 23:32 100 11/16/18 23:31 100 11/16/18 23:30 100 11/16/18 23:28 100 11/16/18 23:26 100 11/16/18 23:24 100 11/16/18 23:23 100 11/16/18 23:20 100 11/16/18 23:18 100 11/16/18 23:17 100 11/16/18 23:14 100 11/16/18 23:12 100 11/16/18 23:10 100 11/16/18 23:08 100 11/16/18 23:06 100 11/16/18 23:04 100 11/16/18 23:03 100 11/16/18 23:01 100 11/16/18 23:00 100 11/16/18 22:58 100 11/16/18 22:57 100 11/16/18 22:54 100 11/16/18 22:52 100 11/16/18 22:50 100 11/16/18 22:48 100 11/16/18 22:46 100 11/16/18 22:45 100 11/16/18 22:44 100 11/16/18 22:42 100 11/16/18 22:40 100 11/16/18 22:38 100 11/16/18 22:36 100 11/16/18 22:34 100 11/16/18 22:33 100 11/16/18 22:31 100 11/16/18 22:30 100 11/16/18 22:28 100 11/16/18 22:26 100 11/16/18 22:24 100 11/16/18 22:22 100 11/16/18 22:20 100 11/16/18 22:18 100 11/16/18 22:16 100 11/16/18 22:14 100 11/16/18 22:12 100 11/16/18 22:10 100 11/16/18 22:09 100 11/16/18 22:06 100 11/16/18 22:04 100 11/16/18 22:01 99 11/16/18 22:00 100 Laboratory Results Laboratory Results - last 24 hr 11/16/18 11/16/18 11/16/18 11:09 12:10 12:10 WBC RBC Hgb Hct MCV MCH MCHC RDW Std Deviation RDW Coeff of David Plt Count MPV Absolute Nucleated RBC Nucleated RBC % (auto) PT INR APTT PTT Ratio Sample Site Art Line POC pH 7.31 L POC pCO2 36 POC pO2 81 POC HCO3 18 L POC Total CO2 19 L POC Base Excess -9.0 POC ABG O2 Sat 95.0 Sree Test NA Mixed VBG pH Mixed VBG pCO2 Mixed VBG pO2 Mixed VBG HCO3 Mixed VBG Base Excess Mixed VBG O2 Saturation Barometric Pressure O2 Delivery Device Cannula Sodium Potassium Chloride Carbon Dioxide Anion Gap BUN Creatinine Est Cr Clr Drug Dosing Est GFR ( Amer) Est GFR (Non-Af Amer) BUN/Creatinine Ratio Glucose POC Glucose (other) Lactate Calcium Ionized Calcium Total Bilirubin AST ALT Alkaline Phosphatase Total Protein Albumin Globulin Albumin/Globulin Ratio Hep Bs Antigen Neg Hep Bs Antibody Non-Immune Hep Bs Antibody, Quant < 3.10 L Hep B Core IgM Ab NON-REACTIVE 11/16/18 11/16/18 11/16/18 13:37 17:40 17:40 WBC RBC Hgb Hct MCV MCH MCHC RDW Std Deviation RDW Coeff of David Plt Count MPV Absolute Nucleated RBC Nucleated RBC % (auto) PT INR APTT PTT Ratio Sample Site POC pH POC pCO2 POC pO2 POC HCO3 POC Total CO2 POC Base Excess POC ABG O2 Sat Sree Test Mixed VBG pH Mixed VBG pCO2 Mixed VBG pO2 Mixed VBG HCO3 Mixed VBG Base Excess Mixed VBG O2 Saturation Barometric Pressure O2 Delivery Device Sodium Potassium Chloride Carbon Dioxide Anion Gap BUN Creatinine Est Cr Clr Drug Dosing Est GFR ( Amer) Est GFR (Non-Af Amer) BUN/Creatinine Ratio Glucose POC Glucose (other) 170 H Lactate 3.0 H* Calcium Ionized Calcium 0.81 L Total Bilirubin AST ALT Alkaline Phosphatase Total Protein Albumin Globulin Albumin/Globulin Ratio Hep Bs Antigen Hep Bs Antibody Hep Bs Antibody, Quant Hep B Core IgM Ab 11/16/18 11/16/18 11/16/18 17:41 17:41 17:41 WBC RBC Hgb Hct MCV MCH MCHC RDW Std Deviation RDW Coeff of David Plt Count MPV Absolute Nucleated RBC Nucleated RBC % (auto) PT 12.3 H INR 1.2 H APTT 93.8 H* Cancelled PTT Ratio 3.5 Cancelled Sample Site POC pH POC pCO2 POC pO2 POC HCO3 POC Total CO2 POC Base Excess POC ABG O2 Sat Sree Test Mixed VBG pH Mixed VBG pCO2 Mixed VBG pO2 Mixed VBG HCO3 Mixed VBG Base Excess Mixed VBG O2 Saturation Barometric Pressure O2 Delivery Device Sodium 131 L Potassium 4.2 D Chloride 96 L Carbon Dioxide 24 Anion Gap 11.0 BUN 32 H Creatinine 3.67 H D Est Cr Clr Drug Dosing 13.9 Est GFR ( Amer) 12.6 Est GFR (Non-Af Amer) 10.9 BUN/Creatinine Ratio 8.8 L Glucose 120 H POC Glucose (other) Lactate Calcium 6.9 L Ionized Calcium Total Bilirubin 0.6 AST 48 H ALT 22 Alkaline Phosphatase 114 Total Protein 5.4 L Albumin 2.1 L Globulin 3.3 Albumin/Globulin Ratio 0.6 L Hep Bs Antigen Hep Bs Antibody Hep Bs Antibody, Quant Hep B Core IgM Ab 11/16/18 11/17/18 11/17/18 21:33 00:21 00:21 WBC RBC Hgb Hct MCV MCH MCHC RDW Std Deviation RDW Coeff of David Plt Count MPV Absolute Nucleated RBC Nucleated RBC % (auto) PT INR APTT PTT Ratio Sample Site POC pH POC pCO2 POC pO2 POC HCO3 POC Total CO2 POC Base Excess POC ABG O2 Sat Sree Test Mixed VBG pH 7.34 L Mixed VBG pCO2 41 Mixed VBG pO2 50 L Mixed VBG HCO3 22 Mixed VBG Base Excess -3.7 Mixed VBG O2 Saturation 82.0 H Barometric Pressure O2 Delivery Device Sodium Potassium Chloride Carbon Dioxide Anion Gap BUN Creatinine Est Cr Clr Drug Dosing Est GFR ( Amer) Est GFR (Non-Af Amer) BUN/Creatinine Ratio Glucose POC Glucose (other) 149 H Lactate 1.1 Calcium Ionized Calcium Total Bilirubin AST ALT Alkaline Phosphatase Total Protein Albumin Globulin Albumin/Globulin Ratio Hep Bs Antigen Hep Bs Antibody Hep Bs Antibody, Quant Hep B Core IgM Ab 11/17/18 11/17/18 11/17/18 00:21 01:16 01:32 WBC RBC Hgb Hct MCV MCH MCHC RDW Std Deviation RDW Coeff of David Plt Count MPV Absolute Nucleated RBC Nucleated RBC % (auto) PT INR APTT Cancelled Cancelled PTT Ratio Cancelled Cancelled Sample Site POC pH POC pCO2 POC pO2 POC HCO3 POC Total CO2 POC Base Excess POC ABG O2 Sat Sree Test Mixed VBG pH Mixed VBG pCO2 Mixed VBG pO2 Mixed VBG HCO3 Mixed VBG Base Excess Mixed VBG O2 Saturation Barometric Pressure O2 Delivery Device Sodium Potassium Chloride Carbon Dioxide Anion Gap BUN Creatinine Est Cr Clr Drug Dosing Est GFR ( Amer) Est GFR (Non-Af Amer) BUN/Creatinine Ratio Glucose POC Glucose (other) 165 H Lactate Calcium Ionized Calcium Total Bilirubin AST ALT Alkaline Phosphatase Total Protein Albumin Globulin Albumin/Globulin Ratio Hep Bs Antigen Hep Bs Antibody Hep Bs Antibody, Quant Hep B Core IgM Ab 11/17/18 11/17/18 11/17/18 03:07 03:07 03:07 WBC 12.62 H RBC 2.90 L Hgb 8.6 L Hct 25.4 L MCV 87.6 MCH 29.7 MCHC 33.9 RDW Std Deviation 50.2 H RDW Coeff of David 15.6 H Plt Count 182 MPV 9.7 Absolute Nucleated RBC 0.04 H Nucleated RBC % (auto) 0.3 PT INR APTT Cancelled PTT Ratio Cancelled Sample Site POC pH POC pCO2 POC pO2 POC HCO3 POC Total CO2 POC Base Excess POC ABG O2 Sat Sree Test Mixed VBG pH Mixed VBG pCO2 Mixed VBG pO2 Mixed VBG HCO3 Mixed VBG Base Excess Mixed VBG O2 Saturation Barometric Pressure O2 Delivery Device Sodium 130 L Potassium 4.3 Chloride 95 L Carbon Dioxide 28 Anion Gap 7.0 BUN 39 H Creatinine 4.35 H D Est Cr Clr Drug Dosing 11.7 Est GFR ( Amer) 10.3 Est GFR (Non-Af Amer) 8.9 BUN/Creatinine Ratio 9.1 L Glucose 151 H POC Glucose (other) Lactate Calcium 6.5 L Ionized Calcium Total Bilirubin AST ALT Alkaline Phosphatase Total Protein Albumin Globulin Albumin/Globulin Ratio Hep Bs Antigen Hep Bs Antibody Hep Bs Antibody, Quant Hep B Core IgM Ab 11/17/18 11/17/18 11/17/18 04:56 05:09 06:15 WBC RBC Hgb Hct MCV MCH MCHC RDW Std Deviation RDW Coeff of David Plt Count MPV Absolute Nucleated RBC Nucleated RBC % (auto) PT INR APTT > 139.0 H* PTT Ratio > 5.1 Sample Site POC pH POC pCO2 POC pO2 POC HCO3 POC Total CO2 POC Base Excess POC ABG O2 Sat Sree Test Mixed VBG pH 7.35 Mixed VBG pCO2 40 Mixed VBG pO2 43 L Mixed VBG HCO3 22 Mixed VBG Base Excess -3.7 Mixed VBG O2 Saturation 75.0 H Barometric Pressure 734.9 O2 Delivery Device Sodium Potassium Chloride Carbon Dioxide Anion Gap BUN Creatinine Est Cr Clr Drug Dosing Est GFR ( Amer) Est GFR (Non-Af Amer) BUN/Creatinine Ratio Glucose POC Glucose (other) 177 H Lactate Calcium Ionized Calcium Total Bilirubin AST ALT Alkaline Phosphatase Total Protein Albumin Globulin Albumin/Globulin Ratio Hep Bs Antigen Hep Bs Antibody Hep Bs Antibody, Quant Hep B Core IgM Ab 11/17/18 11/17/18 06:15 06:28 WBC RBC Hgb Hct MCV MCH MCHC RDW Std Deviation RDW Coeff of David Plt Count MPV Absolute Nucleated RBC Nucleated RBC % (auto) PT INR APTT 96.8 H* PTT Ratio 3.6 Sample Site POC pH POC pCO2 POC pO2 POC HCO3 POC Total CO2 POC Base Excess POC ABG O2 Sat Sree Test Mixed VBG pH Mixed VBG pCO2 Mixed VBG pO2 Mixed VBG HCO3 Mixed VBG Base Excess Mixed VBG O2 Saturation Barometric Pressure O2 Delivery Device Sodium Potassium Chloride Carbon Dioxide Anion Gap BUN Creatinine Est Cr Clr Drug Dosing Est GFR ( Amer) Est GFR (Non-Af Amer) BUN/Creatinine Ratio Glucose POC Glucose (other) Lactate 1.0 Calcium Ionized Calcium Total Bilirubin AST ALT Alkaline Phosphatase Total Protein Albumin Globulin Albumin/Globulin Ratio Hep Bs Antigen Hep Bs Antibody Hep Bs Antibody, Quant Hep B Core IgM Ab
[2018-11-17] MEDS: NOREPINEPHRINE BIT INJ 8 MG in DEXTROSE 5% 500 ML IV SCH (10:03)
[2018-11-17] MEDS: ACETAMINOPHEN 1,000 MG/100 ML VIAL IV PRN (10:03)
--- NOTE | 2018-11-17 11:31 | Surgery Progress Note ---
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 Has developed SHAZIA and is now undergoing dialysis Has developed respiratory insufficiency requiring intubation Requiring pressors for blood pressure support Agree if blood pressure can be maintained without pressors would consider slow institution of GI feeds via the feeding tube Remainder of care as per critical care team Subjective Required intubation and is presently ventilated and sedated Has required pressors for maintaining MEP greater than 60 For dialysis today Physical Exam Gastrointestinal (Abdomen): Inspection/Auscultation: + abdominal surgical in cision (Intact, clean and dry); abdomen not distended Ileostomy with small amount of output, ileostomy and colostomy both appear nonischemic Results & Data Vital Signs (Past 12 Hours) Vital Signs Temp Pulse Pulse Resp BP BP BP 11/17/18 08:05 75 16 11/17/18 08:00 36.8 C 75 88 18 119/76 119/76 99/72 L 11/17/18 07:18 74 99/58 L 11/17/18 07:16 75 99/53 L 11/17/18 07:14 75 103/50 L 11/17/18 07:12 75 99/52 L 11/17/18 07:10 76 103/48 L 11/17/18 07:08 79 112/53 L 11/17/18 07:06 78 104/59 L 11/17/18 07:05 78 104/56 L 11/17/18 07:03 80 111/56 L 11/17/18 07:01 80 110/70 11/17/18 07:00 83 11/17/18 06:58 86 134/43 L 11/17/18 06:55 91 H 145/79 H 11/17/18 06:53 89 135/74 11/17/18 06:51 88 117/82 11/17/18 06:49 88 110/76 11/17/18 06:46 86 132/72 11/17/18 06:45 90 125/82 11/17/18 06:42 88 102/78 11/17/18 06:41 84 111/70 11/17/18 06:39 81 119/56 L 11/17/18 06:37 81 123/70 11/17/18 06:35 82 121/58 L 11/17/18 06:32 80 111/53 L 11/17/18 06:30 84 11/17/18 06:29 85 102/49 L 11/17/18 06:27 72 106/50 L 11/17/18 06:24 76 101/57 L 11/17/18 06:22 70 101/59 L 11/17/18 06:21 84 100/57 L 11/17/18 06:19 82 94/65 L 11/17/18 06:17 74 109/51 L 11/17/18 06:14 81 111/63 11/17/18 06:12 83 114/71 11/17/18 06:11 91 H 125/70 11/17/18 06:09 83 120/68 11/17/18 06:07 81 114/57 L 11/17/18 06:05 80 108/59 L 11/17/18 06:03 83 102/59 L 11/17/18 06:01 73 114/46 L 11/17/18 06:00 81 11/17/18 05:59 74 94/56 L 11/17/18 05:56 80 100/56 L 11/17/18 05:54 70 88/52 L 11/17/18 05:52 79 99/58 L 11/17/18 05:50 69 102/56 L 11/17/18 05:48 72 96/54 L 11/17/18 05:46 75 102/55 L 11/17/18 05:44 76 87/66 L 11/17/18 05:42 70 108/55 L 11/17/18 05:21 70 16 11/17/18 04:18 81 109/68 11/17/18 04:16 80 99/63 L 11/17/18 04:12 76 105/53 L 11/17/18 04:10 66 105/55 L 11/17/18 04:08 70 94/54 L 11/17/18 04:06 75 96/58 L 11/17/18 04:04 97 H 93/56 L 11/17/18 04:02 71 89/53 L 11/17/18 04:01 36.9 C 85 83/58 L 11/17/18 04:00 81 110/54 L 11/17/18 03:58 81 90/52 L 11/17/18 03:56 69 96/50 L 11/17/18 03:54 76 94/56 L 11/17/18 03:52 72 100/54 L 11/17/18 03:50 74 101/57 L 11/17/18 03:48 69 98/57 L 11/17/18 03:46 67 97/55 L 11/17/18 03:45 68 17 11/17/18 03:44 74 97/56 L 11/17/18 03:42 70 101/59 L 11/17/18 03:40 65 105/56 L 11/17/18 03:39 86 101/59 L 11/17/18 03:36 68 105/55 L 11/17/18 03:34 68 103/54 L 11/17/18 03:32 71 104/57 L 11/17/18 03:31 72 11/17/18 03:30 80 104/61 11/17/18 03:28 69 105/56 L 11/17/18 03:26 67 102/55 L 11/17/18 03:24 68 105/53 L 11/17/18 03:22 71 106/58 L 11/17/18 03:20 76 116/51 L 11/17/18 03:19 73 110/58 L 11/17/18 03:17 76 123/61 11/17/18 03:14 81 119/65 11/17/18 03:13 87 107/90 11/17/18 03:11 90 117/66 11/17/18 03:08 87 122/75 11/17/18 03:07 88 116/73 11/17/18 03:04 68 108/61 11/17/18 03:02 67 103/61 11/17/18 03:01 72 11/17/18 03:00 65 101/57 L 11/17/18 02:59 80 104/65 11/17/18 02:56 67 98/57 L 11/17/18 02:54 72 104/54 L 11/17/18 02:52 68 103/50 L 11/17/18 02:50 72 104/57 L 11/17/18 02:48 68 111/57 L 11/17/18 02:46 71 108/61 11/17/18 02:44 78 104/58 L 11/17/18 02:18 65 101/46 L 11/17/18 02:16 71 98/49 L 11/17/18 02:14 67 96/49 L 11/17/18 02:12 69 103/61 11/17/18 02:10 71 98/61 L 11/17/18 02:08 65 100/55 L 11/17/18 02:06 74 105/57 L 11/17/18 02:04 71 101/56 L 11/17/18 02:02 65 98/50 L 11/17/18 02:01 76 11/17/18 02:00 77 97/59 L 11/17/18 01:58 72 99/46 L 11/17/18 01:56 79 93/56 L 11/17/18 01:54 75 98/47 L 11/17/18 01:52 72 105/57 L 11/17/18 01:50 73 98/47 L 11/17/18 01:48 94 H 94/50 L 11/17/18 01:46 78 105/57 L 11/17/18 01:45 67 96/48 L 11/17/18 01:42 71 108/56 L 11/17/18 01:40 69 103/55 L 11/17/18 01:39 78 95/55 L 11/17/18 01:36 81 102/57 L 11/17/18 01:34 77 104/59 L 11/17/18 01:32 71 99/57 L 11/17/18 01:31 74 11/17/18 01:30 81 115/61 11/17/18 01:28 85 120/58 L 11/17/18 01:27 90 109/73 11/17/18 01:24 94 H 112/56 L 11/17/18 01:23 92 H 101/70 11/17/18 01:20 78 102/54 L 11/17/18 01:18 76 95/58 L 11/17/18 01:16 78 97/60 L 11/17/18 01:14 82 97/55 L 11/17/18 01:12 74 98/54 L 11/17/18 01:10 73 98/54 L 11/17/18 01:08 72 91/51 L 11/17/18 01:06 74 102/52 L 11/17/18 01:04 75 99/51 L 11/17/18 01:02 78 95/55 L 11/17/18 01:01 71 11/17/18 01:00 80 93/54 L 11/17/18 00:58 72 91/55 L 11/17/18 00:56 72 92/52 L 11/17/18 00:54 76 96/50 L 11/17/18 00:52 73 83/53 L 11/17/18 00:50 81 89/45 L 11/17/18 00:48 72 95/50 L 11/17/18 00:47 82 97/49 L 11/17/18 00:44 74 99/56 L 11/17/18 00:42 79 92/53 L 11/17/18 00:40 81 16 96/58 L 11/17/18 00:38 79 84/44 L 11/17/18 00:36 81 77/47 L 11/17/18 00:34 80 83/45 L 11/17/18 00:32 83 83/50 L 11/17/18 00:31 82 11/17/18 00:30 90 85/54 L 11/17/18 00:29 88 81/42 L 11/17/18 00:26 80 81/51 L 11/17/18 00:24 84 84/48 L 11/17/18 00:22 82 94/52 L 11/17/18 00:20 84 93/49 L 11/17/18 00:19 92 H 105/60 11/17/18 00:13 92 H 114/85 11/17/18 00:11 87 94/64 L 11/17/18 00:08 92 H 100/60 11/17/18 00:06 82 96/56 L 11/17/18 00:04 91 H 90/59 L 11/17/18 00:02 79 103/57 L 11/17/18 00:01 82 11/17/18 00:00 36.4 C L 82 109/51 L 11/16/18 23:58 90 114/59 L 11/16/18 23:56 85 104/59 L 11/16/18 23:54 81 109/59 L 11/16/18 23:52 87 118/67 11/16/18 23:50 80 102/61 11/16/18 23:48 77 109/53 L 11/16/18 23:46 78 124/46 L 11/16/18 23:45 78 11/16/18 23:44 80 110/57 L 11/16/18 23:42 79 106/65 11/16/18 23:40 78 105/54 L 11/16/18 23:38 88 118/54 L 11/16/18 23:36 79 114/59 L 11/16/18 23:34 79 112/73 11/16/18 23:32 89 101/59 L 11/16/18 23:31 78 11/16/18 23:30 91 H 112/67 11/16/18 23:28 87 100/59 L Pulse Ox 11/17/18 08:05 100 11/17/18 08:00 99 11/17/18 07:18 100 11/17/18 07:16 100 11/17/18 07:14 100 11/17/18 07:12 100 11/17/18 07:10 100 11/17/18 07:08 99 11/17/18 07:06 99 11/17/18 07:05 100 11/17/18 07:03 100 11/17/18 07:01 100 11/17/18 07:00 11/17/18 06:58 100 11/17/18 06:55 97 11/17/18 06:53 97 11/17/18 06:51 99 11/17/18 06:49 99 11/17/18 06:46 100 11/17/18 06:45 100 11/17/18 06:42 99 11/17/18 06:41 100 11/17/18 06:39 100 11/17/18 06:37 99 11/17/18 06:35 100 11/17/18 06:32 99 11/17/18 06:30 100 11/17/18 06:29 100 11/17/18 06:27 100 11/17/18 06:24 11/17/18 06:22 100 11/17/18 06:21 100 11/17/18 06:19 99 11/17/18 06:17 100 11/17/18 06:14 100 11/17/18 06:12 100 11/17/18 06:11 99 11/17/18 06:09 94 11/17/18 06:07 100 11/17/18 06:05 100 11/17/18 06:03 100 11/17/18 06:01 100 11/17/18 06:00 99 11/17/18 05:59 100 11/17/18 05:56 100 11/17/18 05:54 100 11/17/18 05:52 100 11/17/18 05:50 100 11/17/18 05:48 100 11/17/18 05:46 100 11/17/18 05:44 100 11/17/18 05:42 100 11/17/18 05:21 100 11/17/18 04:18 100 11/17/18 04:16 99 11/17/18 04:12 100 11/17/18 04:10 99 11/17/18 04:08 11/17/18 04:06 11/17/18 04:04 100 11/17/18 04:02 100 11/17/18 04:01 100 11/17/18 04:00 100 11/17/18 03:58 100 11/17/18 03:56 11/17/18 03:54 100 11/17/18 03:52 100 11/17/18 03:50 100 11/17/18 03:48 100 11/17/18 03:46 100 11/17/18 03:45 100 11/17/18 03:44 100 11/17/18 03:42 100 11/17/18 03:40 100 11/17/18 03:39 100 11/17/18 03:36 100 11/17/18 03:34 100 11/17/18 03:32 100 11/17/18 03:31 100 11/17/18 03:30 11/17/18 03:28 100 11/17/18 03:26 100 11/17/18 03:24 100 11/17/18 03:22 100 11/17/18 03:20 100 11/17/18 03:19 100 11/17/18 03:17 100 11/17/18 03:14 100 11/17/18 03:13 100 11/17/18 03:11 100 11/17/18 03:08 100 11/17/18 03:07 94 11/17/18 03:04 100 11/17/18 03:02 100 11/17/18 03:01 100 11/17/18 03:00 99 11/17/18 02:59 100 11/17/18 02:56 100 11/17/18 02:54 100 11/17/18 02:52 100 11/17/18 02:50 100 11/17/18 02:48 100 11/17/18 02:46 100 11/17/18 02:44 100 11/17/18 02:18 100 11/17/18 02:16 100 11/17/18 02:14 100 11/17/18 02:12 100 11/17/18 02:10 100 11/17/18 02:08 100 11/17/18 02:06 100 11/17/18 02:04 100 11/17/18 02:02 100 11/17/18 02:01 100 11/17/18 02:00 100 11/17/18 01:58 100 11/17/18 01:56 100 11/17/18 01:54 100 11/17/18 01:52 100 11/17/18 01:50 99 11/17/18 01:48 100 11/17/18 01:46 100 11/17/18 01:45 100 11/17/18 01:42 100 11/17/18 01:40 100 11/17/18 01:39 100 11/17/18 01:36 100 11/17/18 01:34 99 11/17/18 01:32 100 11/17/18 01:31 100 11/17/18 01:30 100 11/17/18 01:28 100 11/17/18 01:27 100 11/17/18 01:24 100 11/17/18 01:23 100 11/17/18 01:20 99 11/17/18 01:18 100 11/17/18 01:16 99 11/17/18 01:14 100 11/17/18 01:12 100 11/17/18 01:10 100 11/17/18 01:08 100 11/17/18 01:06 99 11/17/18 01:04 100 11/17/18 01:02 100 11/17/18 01:01 100 11/17/18 01:00 100 11/17/18 00:58 100 11/17/18 00:56 99 11/17/18 00:54 100 11/17/18 00:52 11/17/18 00:50 11/17/18 00:48 11/17/18 00:47 11/17/18 00:44 11/17/18 00:42 11/17/18 00:40 11/17/18 00:38 11/17/18 00:36 11/17/18 00:34 11/17/18 00:32 99 11/17/18 00:31 11/17/18 00:30 11/17/18 00:29 11/17/18 00:26 11/17/18 00:24 11/17/18 00:22 11/17/18 00:20 99 11/17/18 00:19 11/17/18 00:13 11/17/18 00:11 11/17/18 00:08 11/17/18 00:06 11/17/18 00:04 11/17/18 00:02 11/17/18 00:01 11/17/18 00:00 11/16/18 23:58 11/16/18 23:56 11/16/18 23:54 11/16/18 23:52 11/16/18 23:50 11/16/18 23:48 11/16/18 23:46 11/16/18 23:45 11/16/18 23:44 11/16/18 23:42 11/16/18 23:40 11/16/18 23:38 11/16/18 23:36 11/16/18 23:34 11/16/18 23:32 11/16/18 23:31 11/16/18 23:30 11/16/18 23:28 100 Laboratory Results 11/17/18 11/17/18 11/17/18 Range/Units 06:28 06:15 06:15 WBC (4.8-10.8) K/uL RBC (4.2-5.4) M/uL Hgb (12.0-16.0) g/dL Hct (37-47) % MCV (80-100) fL MCH (25-34) pg MCHC (32-36) g/dL RDW Std Deviation (36.4-46.3) fL RDW Coeff of David (11.5-14.5) % Plt Count (130-400) K/uL MPV (7.4-10.4) fL Absolute Nucleated RBC (0-0) K/uL Nucleated RBC % (auto) % PT (9.0-12.0) Seconds INR (0.9-1.1) APTT 96.8 H* (21.0-31.0) Seconds PTT Ratio 3.6 Mixed VBG pH 7.35 (7.35-7.45) Mixed VBG pCO2 40 (38-50) mmHg Mixed VBG pO2 43 L (80-95) mmHg Mixed VBG HCO3 22 (19-24) mmol/L Mixed VBG Base Excess -3.7 (-7.7-1.9) mEq/L Mixed VBG O2 Saturation 75.0 H (68) % Barometric Pressure 734.9 mm/Hg Sodium (136-145) mmol/L Potassium (3.5-5.1) mmol/L Chloride (98-107) mmol/L Carbon Dioxide (21-32) mmol/L Anion Gap (3-11) BUN (7-18) mg/dl Creatinine (0.6-1.2) mg/dl Est Cr Clr Drug Dosing ml/min Est GFR ( Amer) Est GFR (Non-Af Amer) BUN/Creatinine Ratio (10-20) Glucose (70-99) mg/dl POC Glucose (other) (70-99) mg/dl Lactate 1.0 (0.4-2.0) mmol/L Calcium (8.5-10.1) mg/dl Ionized Calcium (1.12-1.32) mmol/L Total Bilirubin (0.2-1) mg/dl AST (15-37) U/L ALT (12-78) U/L Alkaline Phosphatase (45-117) U/L Total Protein (6.4-8.2) gm/dl Albumin (3.4-5.0) gm/dl Globulin (2.5-4.0) gm/dl Albumin/Globulin Ratio (0.9-2) Hep Bs Antigen (Neg) Hep Bs Antibody Hep Bs Antibody, Quant (>or=10mIU/mL Immune) mIU/mL Hep B Core IgM Ab (NON-REACTIVE) 06/08/19 06/08/19 06/08/19 Range/Units 05:09 04:56 03:07 WBC (4.8-10.8) K/uL RBC (4.2-5.4) M/uL Hgb (12.0-16.0) g/dL Hct (37-47) % MCV (80-100) fL MCH (25-34) pg MCHC (32-36) g/dL RDW Std Deviation (36.4-46.3) fL RDW Coeff of David (11.5-14.5) % Plt Count (130-400) K/uL MPV (7.4-10.4) fL Absolute Nucleated RBC (0-0) K/uL Nucleated RBC % (auto) % PT (9.0-12.0) Seconds INR (0.9-1.1) APTT > 139.0 H* Cancelled (21.0-31.0) Seconds PTT Ratio > 5.1 Cancelled Mixed VBG pH (7.35-7.45) Mixed VBG pCO2 (38-50) mmHg Mixed VBG pO2 (80-95) mmHg Mixed VBG HCO3 (19-24) mmol/L Mixed VBG Base Excess (-7.7-1.9) mEq/L Mixed VBG O2 Saturation (68) % Barometric Pressure mm/Hg Sodium (136-145) mmol/L Potassium (3.5-5.1) mmol/L Chloride (98-107) mmol/L Carbon Dioxide (21-32) mmol/L Anion Gap (3-11) BUN (7-18) mg/dl Creatinine (0.6-1.2) mg/dl Est Cr Clr Drug Dosing ml/min Est GFR ( Amer) Est GFR (Non-Af Amer) BUN/Creatinine Ratio (10-20) Glucose (70-99) mg/dl POC Glucose (other) 177 H (70-99) mg/dl Lactate (0.4-2.0) mmol/L Calcium (8.5-10.1) mg/dl Ionized Calcium (1.12-1.32) mmol/L Total Bilirubin (0.2-1) mg/dl AST (15-37) U/L ALT (12-78) U/L Alkaline Phosphatase (45-117) U/L Total Protein (6.4-8.2) gm/dl Albumin (3.4-5.0) gm/dl Globulin (2.5-4.0) gm/dl Albumin/Globulin Ratio (0.9-2) Hep Bs Antigen (Neg) Hep Bs Antibody Hep Bs Antibody, Quant (>or=10mIU/mL Immune) mIU/mL Hep B Core IgM Ab (NON-REACTIVE) 11/17/18 11/17/18 11/17/18 Range/Units 03:07 03:07 01:32 WBC 12.62 H (4.8-10.8) K/uL RBC 2.90 L (4.2-5.4) M/uL Hgb 8.6 L (12.0-16.0) g/dL Hct 25.4 L (37-47) % MCV 87.6 (80-100) fL MCH 29.7 (25-34) pg MCHC 33.9 (32-36) g/dL RDW Std Deviation 50.2 H (36.4-46.3) fL RDW Coeff of David 15.6 H (11.5-14.5) % Plt Count 182 (130-400) K/uL MPV 9.7 (7.4-10.4) fL Absolute Nucleated RBC 0.04 H (0-0) K/uL Nucleated RBC % (auto) 0.3 % PT (9.0-12.0) Seconds INR (0.9-1.1) APTT Cancelled (21.0-31.0) Seconds PTT Ratio Cancelled Mixed VBG pH (7.35-7.45) Mixed VBG pCO2 (38-50) mmHg Mixed VBG pO2 (80-95) mmHg Mixed VBG HCO3 (19-24) mmol/L Mixed VBG Base Excess (-7.7-1.9) mEq/L Mixed VBG O2 Saturation (68) % Barometric Pressure mm/Hg Sodium 130 L (136-145) mmol/L Potassium 4.3 (3.5-5.1) mmol/L Chloride 95 L (98-107) mmol/L Carbon Dioxide 28 (21-32) mmol/L Anion Gap 7.0 (3-11) BUN 39 H (7-18) mg/dl Creatinine 4.35 H D (0.6-1.2) mg/dl Est Cr Clr Drug Dosing 11.7 ml/min Est GFR ( Amer) 10.3 Est GFR (Non-Af Amer) 8.9 BUN/Creatinine Ratio 9.1 L (10-20) Glucose 151 H (70-99) mg/dl POC Glucose (other) (70-99) mg/dl Lactate (0.4-2.0) mmol/L Calcium 6.5 L (8.5-10.1) mg/dl Ionized Calcium (1.12-1.32) mmol/L Total Bilirubin (0.2-1) mg/dl AST (15-37) U/L ALT (12-78) U/L Alkaline Phosphatase (45-117) U/L Total Protein (6.4-8.2) gm/dl Albumin (3.4-5.0) gm/dl Globulin (2.5-4.0) gm/dl Albumin/Globulin Ratio (0.9-2) Hep Bs Antigen (Neg) Hep Bs Antibody Hep Bs Antibody, Quant (>or=10mIU/mL Immune) mIU/mL Hep B Core IgM Ab (NON-REACTIVE) 11/17/18 11/17/18 11/17/18 Range/Units 01:16 00:21 00:21 WBC (4.8-10.8) K/uL RBC (4.2-5.4) M/uL Hgb (12.0-16.0) g/dL Hct (37-47) % MCV (80-100) fL MCH (25-34) pg MCHC (32-36) g/dL RDW Std Deviation (36.4-46.3) fL RDW Coeff of David (11.5-14.5) % Plt Count (130-400) K/uL MPV (7.4-10.4) fL Absolute Nucleated RBC (0-0) K/uL Nucleated RBC % (auto) % PT (9.0-12.0) Seconds INR (0.9-1.1) APTT Cancelled (21.0-31.0) Seconds PTT Ratio Cancelled Mixed VBG pH 7.34 L (7.35-7.45) Mixed VBG pCO2 41 (38-50) mmHg Mixed VBG pO2 50 L (80-95) mmHg Mixed VBG HCO3 22 (19-24) mmol/L Mixed VBG Base Excess -3.7 (-7.7-1.9) mEq/L Mixed VBG O2 Saturation 82.0 H (68) % Barometric Pressure mm/Hg Sodium (136-145) mmol/L Potassium (3.5-5.1) mmol/L Chloride (98-107) mmol/L Carbon Dioxide (21-32) mmol/L Anion Gap (3-11) BUN (7-18) mg/dl Creatinine (0.6-1.2) mg/dl Est Cr Clr Drug Dosing ml/min Est GFR ( Amer) Est GFR (Non-Af Amer) BUN/Creatinine Ratio (10-20) Glucose (70-99) mg/dl POC Glucose (other) 165 H (70-99) mg/dl Lactate (0.4-2.0) mmol/L Calcium (8.5-10.1) mg/dl Ionized Calcium (1.12-1.32) mmol/L Total Bilirubin (0.2-1) mg/dl AST (15-37) U/L ALT (12-78) U/L Alkaline Phosphatase (45-117) U/L Total Protein (6.4-8.2) gm/dl Albumin (3.4-5.0) gm/dl Globulin (2.5-4.0) gm/dl Albumin/Globulin Ratio (0.9-2) Hep Bs Antigen (Neg) Hep Bs Antibody Hep Bs Antibody, Quant (>or=10mIU/mL Immune) mIU/mL Hep B Core IgM Ab (NON-REACTIVE) 11/17/18 11/16/18 11/16/18 Range/Units 00:21 21:33 17:41 WBC (4.8-10.8) K/uL RBC (4.2-5.4) M/uL Hgb (12.0-16.0) g/dL Hct (37-47) % MCV (80-100) fL MCH (25-34) pg MCHC (32-36) g/dL RDW Std Deviation (36.4-46.3) fL RDW Coeff of David (11.5-14.5) % Plt Count (130-400) K/uL MPV (7.4-10.4) fL Absolute Nucleated RBC (0-0) K/uL Nucleated RBC % (auto) % PT (9.0-12.0) Seconds INR (0.9-1.1) APTT (21.0-31.0) Seconds PTT Ratio Mixed VBG pH (7.35-7.45) Mixed VBG pCO2 (38-50) mmHg Mixed VBG pO2 (80-95) mmHg Mixed VBG HCO3 (19-24) mmol/L Mixed VBG Base Excess (-7.7-1.9) mEq/L Mixed VBG O2 Saturation (68) % Barometric Pressure mm/Hg Sodium 131 L (136-145) mmol/L Potassium 4.2 D (3.5-5.1) mmol/L Chloride 96 L (98-107) mmol/L Carbon Dioxide 24 (21-32) mmol/L Anion Gap 11.0 (3-11) BUN 32 H (7-18) mg/dl Creatinine 3.67 H D (0.6-1.2) mg/dl Est Cr Clr Drug Dosing 13.9 ml/min Est GFR ( Amer) 12.6 Est GFR (Non-Af Amer) 10.9 BUN/Creatinine Ratio 8.8 L (10-20) Glucose 120 H (70-99) mg/dl POC Glucose (other) 149 H (70-99) mg/dl Lactate 1.1 (0.4-2.0) mmol/L Calcium 6.9 L (8.5-10.1) mg/dl Ionized Calcium (1.12-1.32) mmol/L Total Bilirubin 0.6 (0.2-1) mg/dl AST 48 H (15-37) U/L ALT 22 (12-78) U/L Alkaline Phosphatase 114 (45-117) U/L Total Protein 5.4 L (6.4-8.2) gm/dl Albumin 2.1 L (3.4-5.0) gm/dl Globulin 3.3 (2.5-4.0) gm/dl Albumin/Globulin Ratio 0.6 L (0.9-2) Hep Bs Antigen (Neg) Hep Bs Antibody Hep Bs Antibody, Quant (>or=10mIU/mL Immune) mIU/mL Hep B Core IgM Ab (NON-REACTIVE) 11/16/18 11/16/18 11/16/18 Range/Units 17:41 17:41 17:40 WBC (4.8-10.8) K/uL RBC (4.2-5.4) M/uL Hgb (12.0-16.0) g/dL Hct (37-47) % MCV (80-100) fL MCH (25-34) pg MCHC (32-36) g/dL RDW Std Deviation (36.4-46.3) fL RDW Coeff of David (11.5-14.5) % Plt Count (130-400) K/uL MPV (7.4-10.4) fL Absolute Nucleated RBC (0-0) K/uL Nucleated RBC % (auto) % PT 12.3 H (9.0-12.0) Seconds INR 1.2 H (0.9-1.1) APTT Cancelled 93.8 H* (21.0-31.0) Seconds PTT Ratio Cancelled 3.5 Mixed VBG pH (7.35-7.45) Mixed VBG pCO2 (38-50) mmHg Mixed VBG pO2 (80-95) mmHg Mixed VBG HCO3 (19-24) mmol/L Mixed VBG Base Excess (-7.7-1.9) mEq/L Mixed VBG O2 Saturation (68) % Barometric Pressure mm/Hg Sodium (136-145) mmol/L Potassium (3.5-5.1) mmol/L Chloride (98-107) mmol/L Carbon Dioxide (21-32) mmol/L Anion Gap (3-11) BUN (7-18) mg/dl Creatinine (0.6-1.2) mg/dl Est Cr Clr Drug Dosing ml/min Est GFR ( Amer) Est GFR (Non-Af Amer) BUN/Creatinine Ratio (10-20) Glucose (70-99) mg/dl POC Glucose (other) (70-99) mg/dl Lactate (0.4-2.0) mmol/L Calcium (8.5-10.1) mg/dl Ionized Calcium 0.81 L (1.12-1.32) mmol/L Total Bilirubin (0.2-1) mg/dl AST (15-37) U/L ALT (12-78) U/L Alkaline Phosphatase (45-117) U/L Total Protein (6.4-8.2) gm/dl Albumin (3.4-5.0) gm/dl Globulin (2.5-4.0) gm/dl Albumin/Globulin Ratio (0.9-2) Hep Bs Antigen (Neg) Hep Bs Antibody Hep Bs Antibody, Quant (>or=10mIU/mL Immune) mIU/mL Hep B Core IgM Ab (NON-REACTIVE) 11/16/18 11/16/18 11/16/18 Range/Units 17:40 13:37 12:10 WBC (4.8-10.8) K/uL RBC (4.2-5.4) M/uL Hgb (12.0-16.0) g/dL Hct (37-47) % MCV (80-100) fL MCH (25-34) pg MCHC (32-36) g/dL RDW Std Deviation (36.4-46.3) fL RDW Coeff of David (11.5-14.5) % Plt Count (130-400) K/uL MPV (7.4-10.4) fL Absolute Nucleated RBC (0-0) K/uL Nucleated RBC % (auto) % PT (9.0-12.0) Seconds INR (0.9-1.1) APTT (21.0-31.0) Seconds PTT Ratio Mixed VBG pH (7.35-7.45) Mixed VBG pCO2 (38-50) mmHg Mixed VBG pO2 (80-95) mmHg Mixed VBG HCO3 (19-24) mmol/L Mixed VBG Base Excess (-7.7-1.9) mEq/L Mixed VBG O2 Saturation (68) % Barometric Pressure mm/Hg Sodium (136-145) mmol/L Potassium (3.5-5.1) mmol/L Chloride (98-107) mmol/L Carbon Dioxide (21-32) mmol/L Anion Gap (3-11) BUN (7-18) mg/dl Creatinine (0.6-1.2) mg/dl Est Cr Clr Drug Dosing ml/min Est GFR ( Amer) Est GFR (Non-Af Amer) BUN/Creatinine Ratio (10-20) Glucose (70-99) mg/dl POC Glucose (other) 170 H (70-99) mg/dl Lactate 3.0 H* (0.4-2.0) mmol/L Calcium (8.5-10.1) mg/dl Ionized Calcium (1.12-1.32) mmol/L Total Bilirubin (0.2-1) mg/dl AST (15-37) U/L ALT (12-78) U/L Alkaline Phosphatase (45-117) U/L Total Protein (6.4-8.2) gm/dl Albumin (3.4-5.0) gm/dl Globulin (2.5-4.0) gm/dl Albumin/Globulin Ratio (0.9-2) Hep Bs Antigen (Neg) Hep Bs Antibody Hep Bs Antibody, Quant (>or=10mIU/mL Immune) mIU/mL Hep B Core IgM Ab NON-REACTIVE (NON-REACTIVE) 11/16/18 Range/Units 12:10 WBC (4.8-10.8) K/uL RBC (4.2-5.4) M/uL Hgb (12.0-16.0) g/dL Hct (37-47) % MCV (80-100) fL MCH (25-34) pg MCHC (32-36) g/dL RDW Std Deviation (36.4-46.3) fL RDW Coeff of David (11.5-14.5) % Plt Count (130-400) K/uL MPV (7.4-10.4) fL Absolute Nucleated RBC (0-0) K/uL Nucleated RBC % (auto) % PT (9.0-12.0) Seconds INR (0.9-1.1) APTT (21.0-31.0) Seconds PTT Ratio Mixed VBG pH (7.35-7.45) Mixed VBG pCO2 (38-50) mmHg Mixed VBG pO2 (80-95) mmHg Mixed VBG HCO3 (19-24) mmol/L Mixed VBG Base Excess (-7.7-1.9) mEq/L Mixed VBG O2 Saturation (68) % Barometric Pressure mm/Hg Sodium (136-145) mmol/L Potassium (3.5-5.1) mmol/L Chloride (98-107) mmol/L Carbon Dioxide (21-32) mmol/L Anion Gap (3-11) BUN (7-18) mg/dl Creatinine (0.6-1.2) mg/dl Est Cr Clr Drug Dosing ml/min Est GFR ( Amer) Est GFR (Non-Af Amer) BUN/Creatinine Ratio (10-20) Glucose (70-99) mg/dl POC Glucose (other) (70-99) mg/dl Lactate (0.4-2.0) mmol/L Calcium (8.5-10.1) mg/dl Ionized Calcium (1.12-1.32) mmol/L Total Bilirubin (0.2-1) mg/dl AST (15-37) U/L ALT (12-78) U/L Alkaline Phosphatase (45-117) U/L Total Protein (6.4-8.2) gm/dl Albumin (3.4-5.0) gm/dl Globulin (2.5-4.0) gm/dl Albumin/Globulin Ratio (0.9-2) Hep Bs Antigen Neg (Neg) Hep Bs Antibody Non-Immune Hep Bs Antibody, Quant < 3.10 L (>or=10mIU/mL Immune) mIU/mL Hep B Core IgM Ab (NON-REACTIVE)
[2018-11-17] MEDS: Heparin Adult STANDARD Wt-Based Dextrose 5% 25,000 units/500 mL IV SCH (12:15)
--- NOTE | 2018-11-17 12:32 | Hospitalist Progress Note ---
Date of Service November 17, 2018 Assessment & Plan (1) Sepsis associated hypotension: - Required upgrade to ICU on 11/13/18; re-intubated on 11/16/18. - Continue pressor support per security ambassador. - Stress dose steroids with Hydrocortisone 50 mg IV q8hr. - UC and BC are negative. - Continue Zosyn IV for empiric coverage. (2) Small bowel infarction: - S/p urgent laparotomy with small bowel resection, ileocolic resection, mucous fistula, ileostomy and abdominal washout on 11/13 due to multiple small infarcts. - [employer] Clerk and general surgery following. - NPO except meds; start nutrition per ICU team. - Pain control as needed. (3) Recurrent adenocarcinoma of colorectal region: - S/p hemicolectomy in 2007; s/p partial colectomy on 11/07 for recurrent cancer followed by urgent laparotomy as noted above. - Primary management per surgery team. (4) Acute respiratory failure with hypoxia: - Echo 11/13 with decreased EF 45-50% with mild global hypokinesis and e levated right ventricular pressures. - Re-intubated on 11/16; bronch completed, cultures are pending. - Management per ICU team. (5) Acute renal failure: - Creatinine remains elevated in setting of non-oliguric SHAZIA and electrolyte imbalances. - Renal US was negative for obstruction. - Figueroa for accurate I/Os; monitor daily weights. - Nephrology following, HD if necessary -- plan to repeat today. - Holding all nephrotoxic agents, including home ARB and gabapentin. (6) Stage III chronic kidney disease: - Renally dose all meds. (7) Atrial fibrillation with RVR: - Required cardioversion for rapid A. fib on 11/16/18. - Holding home beta jaron due to hypotension; management per ICU team. (8) Diabetes: - Hemoglobin A1C was 7.6. - Glucose management per ICU team. (9) CAD (coronary artery disease): - CAD S/P CABG x 3. - Follows with [facility] [place] [place] [facility], had pre-operative assessment/clearance. - Continue statin and plavix as prescribed. - Holding Imdur and Metoprolol. (10) History of aortic valve replacement: - AVR with Bioprosthetic (2016). - Well functioning per echo. (11) Hypertension: - Holding ARB due to SHAZIA and hypotension. - Beta jaron and Imdur also on hold. (12) Obstructive sleep apnea of adult: - Pt. uses CPAP qhs. - Currently intubated. (13) PMR (polymyalgia rheumatica): - On Prednisone 5 mg daily at home -- receiving stress dose steroids. (14) Depression with anxiety: - Holding home Cymbalta. (15) History of CVA (cerebrovascular accident): - Occurred following surgery (AVR). - Continue Plavix, statin as prescribed. (16) GERD (gastroesophageal reflux disease): - Famotidine 20 mg IV qAM. (17) DVT prophylaxis: - Heparin. Dispo: ICU status, will continue to follow. Subjective Pt. is intubated. Required cardioversion on 11/16/18. Holding nutrition per ICU team. Review of Systems Review of Systems: Unobtainable due to endotracheal tube Physical Exam Physical Exam: General: Sedated HEENT: NC/AT; PERRLA with EOMI; [place] conjunctiva, MMM. Neck: Supple and nontender Cardiac: Regular rate and rhythm Lungs: intubated. Abdomen: BS normoactive x 4, did not palpate. Extremities: Warm. No edema present Neuro: No focal weakness Skin: No rash Results & Data Vital Signs (Past 12 Hours) Vital Signs Temp Pulse Pulse Resp BP BP BP 11/17/18 11:33 90 16 11/17/18 08:05 75 16 11/17/18 08:00 36.8 C 75 88 18 119/76 119/76 99/72 L 11/17/18 07:18 74 99/58 L 11/17/18 07:16 75 99/53 L 11/17/18 07:14 75 103/50 L 11/17/18 07:12 75 99/52 L 11/17/18 07:10 76 103/48 L 11/17/18 07:08 79 112/53 L 11/17/18 07:06 78 104/59 L 11/17/18 07:05 78 104/56 L 11/17/18 07:03 80 111/56 L 11/17/18 07:01 80 110/70 11/17/18 07:00 83 11/17/18 06:58 86 134/43 L 11/17/18 06:55 91 H 145/79 H 11/17/18 06:53 89 135/74 11/17/18 06:51 88 117/82 11/17/18 06:49 88 110/76 11/17/18 06:46 86 132/72 11/17/18 06:45 90 125/82 11/17/18 06:42 88 102/78 11/17/18 06:41 84 111/70 11/17/18 06:39 81 119/56 L 11/17/18 06:37 81 123/70 11/17/18 06:35 82 121/58 L 11/17/18 06:32 80 111/53 L 11/17/18 06:30 84 11/17/18 06:29 85 102/49 L 11/17/18 06:27 72 106/50 L 11/17/18 06:24 76 101/57 L 11/17/18 06:22 70 101/59 L 11/17/18 06:21 84 100/57 L 11/17/18 06:19 82 94/65 L 11/17/18 06:17 74 109/51 L 11/17/18 06:14 81 111/63 11/17/18 06:12 83 114/71 11/17/18 06:11 91 H 125/70 11/17/18 06:09 83 120/68 11/17/18 06:07 81 114/57 L 11/17/18 06:05 80 108/59 L 11/17/18 06:03 83 102/59 L 11/17/18 06:01 73 114/46 L 11/17/18 06:00 81 11/17/18 05:59 74 94/56 L 11/17/18 05:56 80 100/56 L 11/17/18 05:54 70 88/52 L 11/17/18 05:52 79 99/58 L 11/17/18 05:50 69 102/56 L 11/17/18 05:48 72 96/54 L 11/17/18 05:46 75 102/55 L 11/17/18 05:44 76 87/66 L 11/17/18 05:42 70 108/55 L 11/17/18 05:21 70 16 11/17/18 04:18 81 109/68 11/17/18 04:16 80 99/63 L 11/17/18 04:12 76 105/53 L 11/17/18 04:10 66 105/55 L 11/17/18 04:08 70 94/54 L 11/17/18 04:06 75 96/58 L 11/17/18 04:04 97 H 93/56 L 11/17/18 04:02 71 89/53 L 11/17/18 04:01 36.9 C 85 83/58 L 11/17/18 04:00 81 110/54 L 11/17/18 03:58 81 90/52 L 11/17/18 03:56 69 96/50 L 11/17/18 03:54 76 94/56 L 11/17/18 03:52 72 100/54 L 11/17/18 03:50 74 101/57 L 11/17/18 03:48 69 98/57 L 11/17/18 03:46 67 97/55 L 11/17/18 03:45 68 17 11/17/18 03:44 74 97/56 L 11/17/18 03:42 70 101/59 L 11/17/18 03:40 65 105/56 L 11/17/18 03:39 86 101/59 L 11/17/18 03:36 68 105/55 L 11/17/18 03:34 68 103/54 L 11/17/18 03:32 71 104/57 L 11/17/18 03:31 72 11/17/18 03:30 80 104/61 11/17/18 03:28 69 105/56 L 11/17/18 03:26 67 102/55 L 11/17/18 03:24 68 105/53 L 11/17/18 03:22 71 106/58 L 11/17/18 03:20 76 116/51 L 11/17/18 03:19 73 110/58 L 11/17/18 03:17 76 123/61 11/17/18 03:14 81 119/65 11/17/18 03:13 87 107/90 11/17/18 03:11 90 117/66 11/17/18 03:08 87 122/75 11/17/18 03:07 88 116/73 11/17/18 03:04 68 108/61 11/17/18 03:02 67 103/61 11/17/18 03:01 72 11/17/18 03:00 65 101/57 L 11/17/18 02:59 80 104/65 11/17/18 02:56 67 98/57 L 11/17/18 02:54 72 104/54 L 11/17/18 02:52 68 103/50 L 11/17/18 02:50 72 104/57 L 11/17/18 02:48 68 111/57 L 11/17/18 02:46 71 108/61 11/17/18 02:44 78 104/58 L 11/17/18 02:18 65 101/46 L 11/17/18 02:16 71 98/49 L 11/17/18 02:14 67 96/49 L 11/17/18 02:12 69 103/61 11/17/18 02:10 71 98/61 L 11/17/18 02:08 65 100/55 L 11/17/18 02:06 74 105/57 L 11/17/18 02:04 71 101/56 L 11/17/18 02:02 65 98/50 L 11/17/18 02:01 76 11/17/18 02:00 77 97/59 L 11/17/18 01:58 72 99/46 L 11/17/18 01:56 79 93/56 L 11/17/18 01:54 75 98/47 L 11/17/18 01:52 72 105/57 L 11/17/18 01:50 73 98/47 L 11/17/18 01:48 94 H 94/50 L 11/17/18 01:46 78 105/57 L 11/17/18 01:45 67 96/48 L 11/17/18 01:42 71 108/56 L 11/17/18 01:40 69 103/55 L 11/17/18 01:39 78 95/55 L 11/17/18 01:36 81 102/57 L 11/17/18 01:34 77 104/59 L 11/17/18 01:32 71 99/57 L 11/17/18 01:31 74 11/17/18 01:30 81 115/61 11/17/18 01:28 85 120/58 L 11/17/18 01:27 90 109/73 11/17/18 01:24 94 H 112/56 L 11/17/18 01:23 92 H 101/70 11/17/18 01:20 78 102/54 L 11/17/18 01:18 76 95/58 L 11/17/18 01:16 78 97/60 L 11/17/18 01:14 82 97/55 L 11/17/18 01:12 74 98/54 L 11/17/18 01:10 73 98/54 L 11/17/18 01:08 72 91/51 L 11/17/18 01:06 74 102/52 L 11/17/18 01:04 75 99/51 L 11/17/18 01:02 78 95/55 L 11/17/18 01:01 71 11/17/18 01:00 80 93/54 L 11/17/18 00:58 72 91/55 L 11/17/18 00:56 72 92/52 L 11/17/18 00:54 76 96/50 L 11/17/18 00:52 73 83/53 L 11/17/18 00:50 81 89/45 L 11/17/18 00:48 72 95/50 L 11/17/18 00:47 82 97/49 L 11/17/18 00:44 74 99/56 L 11/17/18 00:42 79 92/53 L 11/17/18 00:40 81 16 96/58 L 11/17/18 00:38 79 84/44 L 11/17/18 00:36 81 77/47 L 11/17/18 00:34 80 83/45 L 11/17/18 00:32 83 83/50 L 11/17/18 00:31 82 11/17/18 00:30 90 85/54 L 11/17/18 00:29 88 81/42 L Pulse Ox 11/17/18 11:33 92 11/17/18 08:05 100 11/17/18 08:00 99 11/17/18 07:18 100 11/17/18 07:16 100 11/17/18 07:14 100 11/17/18 07:12 100 11/17/18 07:10 100 11/17/18 07:08 99 11/17/18 07:06 99 11/17/18 07:05 100 11/17/18 07:03 100 11/17/18 07:01 100 11/17/18 07:00 11/17/18 06:58 100 11/17/18 06:55 97 11/17/18 06:53 97 11/17/18 06:51 99 11/17/18 06:49 99 11/17/18 06:46 100 11/17/18 06:45 100 11/17/18 06:42 99 11/17/18 06:41 100 11/17/18 06:39 100 11/17/18 06:37 99 11/17/18 06:35 100 11/17/18 06:32 99 11/17/18 06:30 100 11/17/18 06:29 100 11/17/18 06:27 100 11/17/18 06:24 11/17/18 06:22 100 11/17/18 06:21 100 11/17/18 06:19 99 11/17/18 06:17 100 11/17/18 06:14 100 11/17/18 06:12 100 11/17/18 06:11 99 11/17/18 06:09 94 11/17/18 06:07 100 11/17/18 06:05 100 11/17/18 06:03 100 11/17/18 06:01 100 11/17/18 06:00 99 11/17/18 05:59 100 11/17/18 05:56 100 11/17/18 05:54 100 11/17/18 05:52 100 11/17/18 05:50 100 11/17/18 05:48 100 11/17/18 05:46 100 11/17/18 05:44 100 11/17/18 05:42 100 11/17/18 05:21 100 11/17/18 04:18 100 11/17/18 04:16 99 11/17/18 04:12 100 11/17/18 04:10 99 11/17/18 04:08 11/17/18 04:06 11/17/18 04:04 100 11/17/18 04:02 100 11/17/18 04:01 100 11/17/18 04:00 100 11/17/18 03:58 100 11/17/18 03:56 11/17/18 03:54 100 11/17/18 03:52 100 11/17/18 03:50 100 11/17/18 03:48 100 11/17/18 03:46 100 11/17/18 03:45 100 11/17/18 03:44 100 11/17/18 03:42 100 11/17/18 03:40 100 11/17/18 03:39 100 11/17/18 03:36 100 11/17/18 03:34 100 11/17/18 03:32 100 11/17/18 03:31 100 11/17/18 03:30 11/17/18 03:28 100 11/17/18 03:26 100 11/17/18 03:24 100 11/17/18 03:22 100 11/17/18 03:20 100 11/17/18 03:19 100 11/17/18 03:17 100 11/17/18 03:14 100 11/17/18 03:13 100 11/17/18 03:11 100 11/17/18 03:08 100 11/17/18 03:07 94 11/17/18 03:04 100 11/17/18 03:02 100 11/17/18 03:01 100 11/17/18 03:00 99 11/17/18 02:59 100 11/17/18 02:56 100 11/17/18 02:54 100 11/17/18 02:52 100 11/17/18 02:50 100 11/17/18 02:48 100 11/17/18 02:46 100 11/17/18 02:44 100 11/17/18 02:18 100 11/17/18 02:16 100 11/17/18 02:14 100 11/17/18 02:12 100 11/17/18 02:10 100 11/17/18 02:08 100 11/17/18 02:06 100 11/17/18 02:04 100 11/17/18 02:02 100 11/17/18 02:01 100 11/17/18 02:00 100 11/17/18 01:58 100 11/17/18 01:56 100 11/17/18 01:54 100 11/17/18 01:52 100 11/17/18 01:50 99 11/17/18 01:48 100 11/17/18 01:46 100 11/17/18 01:45 100 11/17/18 01:42 100 11/17/18 01:40 11/17/18 01:39 11/17/18 01:36 11/17/18 01:34 99 11/17/18 01:32 11/17/18 01:31 11/17/18 01:30 11/17/18 01:28 11/17/18 01:27 11/17/18 01:24 11/17/18 01:23 11/17/18 01:20 11/17/18 01:18 11/17/18 01:16 11/17/18 01:14 11/17/18 01:12 11/17/18 01:10 11/17/18 01:08 11/17/18 01:06 11/17/18 01:04 11/17/18 01:02 11/17/18 01:01 11/17/18 01:00 11/17/18 00:58 11/17/18 00:56 11/17/18 00:54 11/17/18 00:52 11/17/18 00:50 11/17/18 00:48 11/17/18 00:47 11/17/18 00:44 11/17/18 00:42 11/17/18 00:40 11/17/18 00:38 11/17/18 00:36 11/17/18 00:34 11/17/18 00:32 11/17/18 00:31 11/17/18 00:30 11/17/18 00:29 100 Laboratory Results 11/17/18 11/17/18 11/17/18 Range/Units 12:02 11:56 10:04 WBC (4.8-10.8) K/uL RBC (4.2-5.4) M/uL Hgb (12.0-16.0) g/dL Hct (37-47) % MCV (80-100) fL MCH (25-34) pg MCHC (32-36) g/dL RDW Std Deviation (36.4-46.3) fL RDW Coeff of David (11.5-14.5) % Plt Count (130-400) K/uL MPV (7.4-10.4) fL Absolute Nucleated RBC (0-0) K/uL Nucleated RBC % (auto) % PT (9.0-12.0) Seconds INR (0.9-1.1) APTT (21.0-31.0) Seconds PTT Ratio Mixed VBG pH 7.37 (7.35-7.45) Mixed VBG pCO2 37 L (38-50) mmHg Mixed VBG pO2 38 L (80-95) mmHg Mixed VBG HCO3 21 (19-24) mmol/L Mixed VBG Base Excess -3.7 (-7.7-1.9) mEq/L Mixed VBG O2 Saturation 70.3 H (68) % Barometric Pressure 735.7 mm/Hg Sodium (136-145) mmol/L Potassium (3.5-5.1) mmol/L Chloride (98-107) mmol/L Carbon Dioxide (21-32) mmol/L Anion Gap (3-11) BUN (7-18) mg/dl Creatinine (0.6-1.2) mg/dl Est Cr Clr Drug Dosing ml/min Est GFR ( Amer) Est GFR (Non-Af Amer) BUN/Creatinine Ratio (10-20) Glucose (70-99) mg/dl POC Glucose (other) 210 H 203 H (70-99) mg/dl Lactate (0.4-2.0) mmol/L Calcium (8.5-10.1) mg/dl Ionized Calcium (1.12-1.32) mmol/L Total Bilirubin (0.2-1) mg/dl AST (15-37) U/L ALT (12-78) U/L Alkaline Phosphatase (45-117) U/L Total Protein (6.4-8.2) gm/dl Albumin (3.4-5.0) gm/dl Globulin (2.5-4.0) gm/dl Albumin/Globulin Ratio (0.9-2) Hep Bs Antigen (Neg) Hep Bs Antibody Hep Bs Antibody, Quant (>or=10mIU/mL Immune) mIU/mL Hep B Core IgM Ab (NON-REACTIVE) 11/17/18 11/17/18 11/17/18 Range/Units 09:18 06:28 06:15 WBC (4.8-10.8) K/uL RBC (4.2-5.4) M/uL Hgb (12.0-16.0) g/dL Hct (37-47) % MCV (80-100) fL MCH (25-34) pg MCHC (32-36) g/dL RDW Std Deviation (36.4-46.3) fL RDW Coeff of David (11.5-14.5) % Plt Count (130-400) K/uL MPV (7.4-10.4) fL Absolute Nucleated RBC (0-0) K/uL Nucleated RBC % (auto) % PT (9.0-12.0) Seconds INR (0.9-1.1) APTT 96.8 H* (21.0-31.0) Seconds PTT Ratio 3.6 Mixed VBG pH (7.35-7.45) Mixed VBG pCO2 (38-50) mmHg Mixed VBG pO2 (80-95) mmHg Mixed VBG HCO3 (19-24) mmol/L Mixed VBG Base Excess (-7.7-1.9) mEq/L Mixed VBG O2 Saturation (68) % Barometric Pressure mm/Hg Sodium (136-145) mmol/L Potassium (3.5-5.1) mmol/L Chloride (98-107) mmol/L Carbon Dioxide (21-32) mmol/L Anion Gap (3-11) BUN (7-18) mg/dl Creatinine (0.6-1.2) mg/dl Est Cr Clr Drug Dosing ml/min Est GFR ( Amer) Est GFR (Non-Af Amer) BUN/Creatinine Ratio (10-20) Glucose (70-99) mg/dl POC Glucose (other) 199 H (70-99) mg/dl Lactate 1.0 (0.4-2.0) mmol/L Calcium (8.5-10.1) mg/dl Ionized Calcium (1.12-1.32) mmol/L Total Bilirubin (0.2-1) mg/dl AST (15-37) U/L ALT (12-78) U/L Alkaline Phosphatase (45-117) U/L Total Protein (6.4-8.2) gm/dl Albumin (3.4-5.0) gm/dl Globulin (2.5-4.0) gm/dl Albumin/Globulin Ratio (0.9-2) Hep Bs Antigen (Neg) Hep Bs Antibody Hep Bs Antibody, Quant (>or=10mIU/mL Immune) mIU/mL Hep B Core IgM Ab (NON-REACTIVE) 11/17/18 11/17/18 11/17/18 Range/Units 06:15 05:09 04:56 WBC (4.8-10.8) K/uL RBC (4.2-5.4) M/uL Hgb (12.0-16.0) g/dL Hct (37-47) % MCV (80-100) fL MCH (25-34) pg MCHC (32-36) g/dL RDW Std Deviation (36.4-46.3) fL RDW Coeff of David (11.5-14.5) % Plt Count (130-400) K/uL MPV (7.4-10.4) fL Absolute Nucleated RBC (0-0) K/uL Nucleated RBC % (auto) % PT (9.0-12.0) Seconds INR (0.9-1.1) APTT > 139.0 H* (21.0-31.0) Seconds PTT Ratio > 5.1 Mixed VBG pH 7.35 (7.35-7.45) Mixed VBG pCO2 40 (38-50) mmHg Mixed VBG pO2 43 L (80-95) mmHg Mixed VBG HCO3 22 (19-24) mmol/L Mixed VBG Base Excess -3.7 (-7.7-1.9) mEq/L Mixed VBG O2 Saturation 75.0 H (68) % Barometric Pressure 734.9 mm/Hg Sodium (136-145) mmol/L Potassium (3.5-5.1) mmol/L Chloride (98-107) mmol/L Carbon Dioxide (21-32) mmol/L Anion Gap (3-11) BUN (7-18) mg/dl Creatinine (0.6-1.2) mg/dl Est Cr Clr Drug Dosing ml/min Est GFR ( Amer) Est GFR (Non-Af Amer) BUN/Creatinine Ratio (10-20) Glucose (70-99) mg/dl POC Glucose (other) 177 H (70-99) mg/dl Lactate (0.4-2.0) mmol/L Calcium (8.5-10.1) mg/dl Ionized Calcium (1.12-1.32) mmol/L Total Bilirubin (0.2-1) mg/dl AST (15-37) U/L ALT (12-78) U/L Alkaline Phosphatase (45-117) U/L Total Protein (6.4-8.2) gm/dl Albumin (3.4-5.0) gm/dl Globulin (2.5-4.0) gm/dl Albumin/Globulin Ratio (0.9-2) Hep Bs Antigen (Neg) Hep Bs Antibody Hep Bs Antibody, Quant (>or=10mIU/mL Immune) mIU/mL Hep B Core IgM Ab (NON-REACTIVE) 11/17/18 11/17/18 11/17/18 Range/Units 03:07 03:07 03:07 WBC 12.62 H (4.8-10.8) K/uL RBC 2.90 L (4.2-5.4) M/uL Hgb 8.6 L (12.0-16.0) g/dL Hct 25.4 L (37-47) % MCV 87.6 (80-100) fL MCH 29.7 (25-34) pg MCHC 33.9 (32-36) g/dL RDW Std Deviation 50.2 H (36.4-46.3) fL RDW Coeff of David 15.6 H (11.5-14.5) % Plt Count 182 (130-400) K/uL MPV 9.7 (7.4-10.4) fL Absolute Nucleated RBC 0.04 H (0-0) K/uL Nucleated RBC % (auto) 0.3 % PT (9.0-12.0) Seconds INR (0.9-1.1) APTT Cancelled (21.0-31.0) Seconds PTT Ratio Cancelled Mixed VBG pH (7.35-7.45) Mixed VBG pCO2 (38-50) mmHg Mixed VBG pO2 (80-95) mmHg Mixed VBG HCO3 (19-24) mmol/L Mixed VBG Base Excess (-7.7-1.9) mEq/L Mixed VBG O2 Saturation (68) % Barometric Pressure mm/Hg Sodium 130 L (136-145) mmol/L Potassium 4.3 (3.5-5.1) mmol/L Chloride 95 L (98-107) mmol/L Carbon Dioxide 28 (21-32) mmol/L Anion Gap 7.0 (3-11) BUN 39 H (7-18) mg/dl Creatinine 4.35 H D (0.6-1.2) mg/dl Est Cr Clr Drug Dosing 11.7 ml/min Est GFR ( Amer) 10.3 Est GFR (Non-Af Amer) 8.9 BUN/Creatinine Ratio 9.1 L (10-20) Glucose 151 H (70-99) mg/dl POC Glucose (other) (70-99) mg/dl Lactate (0.4-2.0) mmol/L Calcium 6.5 L (8.5-10.1) mg/dl Ionized Calcium (1.12-1.32) mmol/L Total Bilirubin (0.2-1) mg/dl AST (15-37) U/L ALT (12-78) U/L Alkaline Phosphatase (45-117) U/L Total Protein (6.4-8.2) gm/dl Albumin (3.4-5.0) gm/dl Globulin (2.5-4.0) gm/dl Albumin/Globulin Ratio (0.9-2) Hep Bs Antigen (Neg) Hep Bs Antibody Hep Bs Antibody, Quant (>or=10mIU/mL Immune) mIU/mL Hep B Core IgM Ab (NON-REACTIVE) 11/17/18 11/17/18 11/17/18 Range/Units 01:32 01:16 00:21 WBC (4.8-10.8) K/uL RBC (4.2-5.4) M/uL Hgb (12.0-16.0) g/dL Hct (37-47) % MCV (80-100) fL MCH (25-34) pg MCHC (32-36) g/dL RDW Std Deviation (36.4-46.3) fL RDW Coeff of David (11.5-14.5) % Plt Count (130-400) K/uL MPV (7.4-10.4) fL Absolute Nucleated RBC (0-0) K/uL Nucleated RBC % (auto) % PT (9.0-12.0) Seconds INR (0.9-1.1) APTT Cancelled Cancelled (21.0-31.0) Seconds PTT Ratio Cancelled Cancelled Mixed VBG pH (7.35-7.45) Mixed VBG pCO2 (38-50) mmHg Mixed VBG pO2 (80-95) mmHg Mixed VBG HCO3 (19-24) mmol/L Mixed VBG Base Excess (-7.7-1.9) mEq/L Mixed VBG O2 Saturation (68) % Barometric Pressure mm/Hg Sodium (136-145) mmol/L Potassium (3.5-5.1) mmol/L Chloride (98-107) mmol/L Carbon Dioxide (21-32) mmol/L Anion Gap (3-11) BUN (7-18) mg/dl Creatinine (0.6-1.2) mg/dl Est Cr Clr Drug Dosing ml/min Est GFR ( Amer) Est GFR (Non-Af Amer) BUN/Creatinine Ratio (10-20) Glucose (70-99) mg/dl POC Glucose (other) 165 H (70-99) mg/dl Lactate (0.4-2.0) mmol/L Calcium (8.5-10.1) mg/dl Ionized Calcium (1.12-1.32) mmol/L Total Bilirubin (0.2-1) mg/dl AST (15-37) U/L ALT (12-78) U/L Alkaline Phosphatase (45-117) U/L Total Protein (6.4-8.2) gm/dl Albumin (3.4-5.0) gm/dl Globulin (2.5-4.0) gm/dl Albumin/Globulin Ratio (0.9-2) Hep Bs Antigen (Neg) Hep Bs Antibody Hep Bs Antibody, Quant (>or=10mIU/mL Immune) mIU/mL Hep B Core IgM Ab (NON-REACTIVE) 11/17/18 11/17/18 11/16/18 Range/Units 00:21 00:21 21:33 WBC (4.8-10.8) K/uL RBC (4.2-5.4) M/uL Hgb (12.0-16.0) g/dL Hct (37-47) % MCV (80-100) fL MCH (25-34) pg MCHC (32-36) g/dL RDW Std Deviation (36.4-46.3) fL RDW Coeff of David (11.5-14.5) % Plt Count (130-400) K/uL MPV (7.4-10.4) fL Absolute Nucleated RBC (0-0) K/uL Nucleated RBC % (auto) % PT (9.0-12.0) Seconds INR (0.9-1.1) APTT (21.0-31.0) Seconds PTT Ratio Mixed VBG pH 7.34 L (7.35-7.45) Mixed VBG pCO2 41 (38-50) mmHg Mixed VBG pO2 50 L (80-95) mmHg Mixed VBG HCO3 22 (19-24) mmol/L Mixed VBG Base Excess -3.7 (-7.7-1.9) mEq/L Mixed VBG O2 Saturation 82.0 H (68) % Barometric Pressure mm/Hg Sodium (136-145) mmol/L Potassium (3.5-5.1) mmol/L Chloride (98-107) mmol/L Carbon Dioxide (21-32) mmol/L Anion Gap (3-11) BUN (7-18) mg/dl Creatinine (0.6-1.2) mg/dl Est Cr Clr Drug Dosing ml/min Est GFR ( Amer) Est GFR (Non-Af Amer) BUN/Creatinine Ratio (10-20) Glucose (70-99) mg/dl POC Glucose (other) 149 H (70-99) mg/dl Lactate 1.1 (0.4-2.0) mmol/L Calcium (8.5-10.1) mg/dl Ionized Calcium (1.12-1.32) mmol/L Total Bilirubin (0.2-1) mg/dl AST (15-37) U/L ALT (12-78) U/L Alkaline Phosphatase (45-117) U/L Total Protein (6.4-8.2) gm/dl Albumin (3.4-5.0) gm/dl Globulin (2.5-4.0) gm/dl Albumin/Globulin Ratio (0.9-2) Hep Bs Antigen (Neg) Hep Bs Antibody Hep Bs Antibody, Quant (>or=10mIU/mL Immune) mIU/mL Hep B Core IgM Ab (NON-REACTIVE) 06/12/2811/16/18 11/16/18 Range/Units 17:41 17:41 17:41 WBC (4.8-10.8) K/uL RBC (4.2-5.4) M/uL Hgb (12.0-16.0) g/dL Hct (37-47) % MCV (80-100) fL MCH (25-34) pg MCHC (32-36) g/dL RDW Std Deviation (36.4-46.3) fL RDW Coeff of David (11.5-14.5) % Plt Count (130-400) K/uL MPV (7.4-10.4) fL Absolute Nucleated RBC (0-0) K/uL Nucleated RBC % (auto) % PT 12.3 H (9.0-12.0) Seconds INR 1.2 H (0.9-1.1) APTT Cancelled 93.8 H* (21.0-31.0) Seconds PTT Ratio Cancelled 3.5 Mixed VBG pH (7.35-7.45) Mixed VBG pCO2 (38-50) mmHg Mixed VBG pO2 (80-95) mmHg Mixed VBG HCO3 (19-24) mmol/L Mixed VBG Base Excess (-7.7-1.9) mEq/L Mixed VBG O2 Saturation (68) % Barometric Pressure mm/Hg Sodium 131 L (136-145) mmol/L Potassium 4.2 D (3.5-5.1) mmol/L Chloride 96 L (98-107) mmol/L Carbon Dioxide 24 (21-32) mmol/L Anion Gap 11.0 (3-11) BUN 32 H (7-18) mg/dl Creatinine 3.67 H D (0.6-1.2) mg/dl Est Cr Clr Drug Dosing 13.9 ml/min Est GFR ( Amer) 12.6 Est GFR (Non-Af Amer) 10.9 BUN/Creatinine Ratio 8.8 L (10-20) Glucose 120 H (70-99) mg/dl POC Glucose (other) (70-99) mg/dl Lactate (0.4-2.0) mmol/L Calcium 6.9 L (8.5-10.1) mg/dl Ionized Calcium (1.12-1.32) mmol/L Total Bilirubin 0.6 (0.2-1) mg/dl AST 48 H (15-37) U/L ALT 22 (12-78) U/L Alkaline Phosphatase 114 (45-117) U/L Total Protein 5.4 L (6.4-8.2) gm/dl Albumin 2.1 L (3.4-5.0) gm/dl Globulin 3.3 (2.5-4.0) gm/dl Albumin/Globulin Ratio 0.6 L (0.9-2) Hep Bs Antigen (Neg) Hep Bs Antibody Hep Bs Antibody, Quant (>or=10mIU/mL Immune) mIU/mL Hep B Core IgM Ab (NON-REACTIVE) 11/16/18 11/16/18 11/16/18 Range/Units 17:40 17:40 13:37 WBC (4.8-10.8) K/uL RBC (4.2-5.4) M/uL Hgb (12.0-16.0) g/dL Hct (37-47) % MCV (80-100) fL MCH (25-34) pg MCHC (32-36) g/dL RDW Std Deviation (36.4-46.3) fL RDW Coeff of David (11.5-14.5) % Plt Count (130-400) K/uL MPV (7.4-10.4) fL Absolute Nucleated RBC (0-0) K/uL Nucleated RBC % (auto) % PT (9.0-12.0) Seconds INR (0.9-1.1) APTT (21.0-31.0) Seconds PTT Ratio Mixed VBG pH (7.35-7.45) Mixed VBG pCO2 (38-50) mmHg Mixed VBG pO2 (80-95) mmHg Mixed VBG HCO3 (19-24) mmol/L Mixed VBG Base Excess (-7.7-1.9) mEq/L Mixed VBG O2 Saturation (68) % Barometric Pressure mm/Hg Sodium (136-145) mmol/L Potassium (3.5-5.1) mmol/L Chloride (98-107) mmol/L Carbon Dioxide (21-32) mmol/L Anion Gap (3-11) BUN (7-18) mg/dl Creatinine (0.6-1.2) mg/dl Est Cr Clr Drug Dosing ml/min Est GFR ( Amer) Est GFR (Non-Af Amer) BUN/Creatinine Ratio (10-20) Glucose (70-99) mg/dl POC Glucose (other) 170 H (70-99) mg/dl Lactate 3.0 H* (0.4-2.0) mmol/L Calcium (8.5-10.1) mg/dl Ionized Calcium 0.81 L (1.12-1.32) mmol/L Total Bilirubin (0.2-1) mg/dl AST (15-37) U/L ALT (12-78) U/L Alkaline Phosphatase (45-117) U/L Total Protein (6.4-8.2) gm/dl Albumin (3.4-5.0) gm/dl Globulin (2.5-4.0) gm/dl Albumin/Globulin Ratio (0.9-2) Hep Bs Antigen (Neg) Hep Bs Antibody Hep Bs Antibody, Quant (>or=10mIU/mL Immune) mIU/mL Hep B Core IgM Ab (NON-REACTIVE) 11/16/18 11/16/18 Range/Units 12:10 12:10 WBC (4.8-10.8) K/uL RBC (4.2-5.4) M/uL Hgb (12.0-16.0) g/dL Hct (37-47) % MCV (80-100) fL MCH (25-34) pg MCHC (32-36) g/dL RDW Std Deviation (36.4-46.3) fL RDW Coeff of David (11.5-14.5) % Plt Count (130-400) K/uL MPV (7.4-10.4) fL Absolute Nucleated RBC (0-0) K/uL Nucleated RBC % (auto) % PT (9.0-12.0) Seconds INR (0.9-1.1) APTT (21.0-31.0) Seconds PTT Ratio Mixed VBG pH (7.35-7.45) Mixed VBG pCO2 (38-50) mmHg Mixed VBG pO2 (80-95) mmHg Mixed VBG HCO3 (19-24) mmol/L Mixed VBG Base Excess (-7.7-1.9) mEq/L Mixed VBG O2 Saturation (68) % Barometric Pressure mm/Hg Sodium (136-145) mmol/L Potassium (3.5-5.1) mmol/L Chloride (98-107) mmol/L Carbon Dioxide (21-32) mmol/L Anion Gap (3-11) BUN (7-18) mg/dl Creatinine (0.6-1.2) mg/dl Est Cr Clr Drug Dosing ml/min Est GFR ( Amer) Est GFR (Non-Af Amer) BUN/Creatinine Ratio (10-20) Glucose (70-99) mg/dl POC Glucose (other) (70-99) mg/dl Lactate (0.4-2.0) mmol/L Calcium (8.5-10.1) mg/dl Ionized Calcium (1.12-1.32) mmol/L Total Bilirubin (0.2-1) mg/dl AST (15-37) U/L ALT (12-78) U/L Alkaline Phosphatase (45-117) U/L Total Protein (6.4-8.2) gm/dl Albumin (3.4-5.0) gm/dl Globulin (2.5-4.0) gm/dl Albumin/Globulin Ratio (0.9-2) Hep Bs Antigen Neg (Neg) Hep Bs Antibody Non-Immune Hep Bs Antibody, Quant < 3.10 L (>or=10mIU/mL Immune) mIU/mL Hep B Core IgM Ab NON-REACTIVE (NON-REACTIVE)
[2018-11-17 14:53] LABS: Partial Thromboplastin Ratio > 5.1
[2018-11-17] MEDS ORDERED: METOPROLOL TARTRATE 1 MG/ML VIAL IV ONE (14:58)
[2018-11-17] MEDS ORDERED: VECURONIUM BROMIDE 10 MG VIAL ONE (14:58)
[2018-11-17 15:07] LABS: Partial Thromboplastin Time > 139.0 Seconds (21.0-31.0)
[2018-11-17] MEDS ORDERED: fentaNYL citrate 100 MCG/2 ML VIAL IV STA (15:09)
[2018-11-17] MEDS ORDERED: VECURONIUM BROMIDE 10 MG VIAL IV STA (15:09)
[2018-11-17] MEDS ORDERED: MIDAZOLAM HCL 1 MG/ML 2ML VIAL IV STA (16:21)
[2018-11-17] MEDS: INSULIN REGULAR 250 UNITS in SODIUM CHLORIDE 0.9% 247.5 ML IV SCH (16:26)
[2018-11-17 16:51] LABS: Partial Thromboplastin Ratio > 5.1
[2018-11-17 16:59] LABS: Partial Thromboplastin Time > 139.0 Seconds (21.0-31.0)
[2018-11-17 18:44] LABS: Partial Thromboplastin Ratio 2.1
[2018-11-17 18:45] LABS: Partial Thromboplastin Time 57.5 Seconds (21.0-31.0)
[2018-11-17] MEDS: ROSUVASTATIN CALCIUM 20 MG TAB PO SCH (22:25)
[2018-11-18] MEDS: MIDAZOLAM HCL 1 MG/ML 2ML VIAL IV PRN ×12 (00:30→23:16)
[2018-11-18 01:42] LABS: Partial Thromboplastin Ratio 2.8
[2018-11-18] MEDS: fentaNYL citrate 100 MCG/2 ML VIAL IV PRN ×10 (02:10→22:41)
[2018-11-18] MEDS: PIPERACILLIN/TAZOBACTAM 3.375 GM in DEXTROSE 5% 100 ML IV SCH ×2 (02:12→17:41)
[2018-11-18] MEDS: HYDROCORTISONE SOD 50 MG in SYRINGE 0 ML IV SCH ×3 (02:13→17:41)
[2018-11-18 04:39] LABS: Basophils # (auto) 0.01 K/uL (0-0.2); Basophils % (auto) 0.1 %; Hematocrit (blood only) 24.7 % (37-47); Hemoglobin 8.6 g/dL (12.0-16.0); Immature Granulocytes # (auto) 0.29 K/uL (0.00-0.02); Immature Granulocytes % (auto) 2.3 %; Lymphocytes # (auto) 0.49 K/uL (1.2-3.4); Lymphocytes % (auto) 3.8 %; Mean Corpuscular Hgb Conc 34.8 g/dL (32-36); Mean Corpuscular Volume 85.5 fL (80-100); Mean Platelet Volume 9.2 fL (7.4-10.4); Monocytes # (auto) 1.21 K/uL (0.11-0.59); Monocytes % (auto) 9.5 %; Neutrophils % (auto) 84.3 %; Nucleated RBC # (auto) 0.04 K/uL (0-0); Nucleated RBC % (auto) 0.3 %; Platelet Count 162 K/uL (130-400); RDW Coefficient of Variation 15.4 % (11.5-14.5); RDW Standard Deviation 48.7 fL (36.4-46.3); Red Blood Count 2.89 M/uL (4.2-5.4)
[2018-11-18] MEDS: PHENYLEPHRINE HCL 20 MG in DEXTROSE 5% 500 ML IV SCH (05:14)
[2018-11-18 05:32] LABS: BUN Creatinine Ratio 9.6 (10-20); Calcium 7.6 mg/dl (8.5-10.1); Creatinine Clr Calc Pharmacy 12.2 ml/min; Est GFR (African American) 10.4; Est GFR (Non-African American) 8.9; Magnesium 2.2 mg/dl (1.8-2.4); Phosphorus 5.6 mg/dl (2.5-4.9); Potassium 3.9 mmol/L (3.5-5.1)
[2018-11-18] MEDS ORDERED: MIDAZOLAM HCL 1 MG/ML 2ML VIAL IV STA ×2 (06:34→23:16)
[2018-11-18] MEDS ORDERED: fentaNYL citrate 100 MCG/2 ML VIAL IV STA (06:34)
[2018-11-18] MEDS: ACETAMINOPHEN 1,000 MG/100 ML VIAL IV PRN ×2 (07:50→16:59)
[2018-11-18] MEDS: THIAMINE HCL 100 MG in SYRINGE 9 ML IV SCH (07:51)
[2018-11-18] MEDS: FAMOTIDINE 20 MG in SYRINGE 3 ML IV SCH (07:51)
[2018-11-18] MEDS: CLOPIDOGREL BISULFATE 75 MG TAB PO SCH (07:51)
[2018-11-18] MEDS: INSULIN ASPART 100 UNITS/ML 3 ML PEN SC SCH ×4 (07:52→22:44)
[2018-11-18 09:26] LABS: Partial Thromboplastin Ratio 1.8
[2018-11-18] MEDS ORDERED: SODIUM CHLORIDE 0.9% 250 ML IV PRN (09:52)
--- NOTE | 2018-11-18 09:58 | Nephrology Progress Note ---
Date of Service November 18, 2018 Assessment & Plan (1) Acute renal failure: -- ATN -- Urine output non oliguric, minimal clearance with HD yesterday -- Creatinine stable -- [facility] HD catheter placed by Dr. 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 Cardioverted. Remains on vasopressor support. Family remains at the bedside. Goals of care reviewed this morning. Plan of care discussed with Dr. Pate. Nanette remains intubated. She is agitated intermittently when sedation wears off. Obligatory fluid intake remains high. Urine output non-oliguric but remains in a positive fluid balance. Review of Systems Review of Systems: Unobtainable due to endotracheal tube and Unobtainable due to reduced consciousness Physical Exam Constitutional: + ill appearing Eyes: PERRL, conjunctivae normal, anicteric sclerae no scleral abnormality and no corneal abnormality Neck: trachea midline Respiratory: Auscultation: + bronchovesicular breath sounds Cardiovascular: Rate/Rhythm: regular rate and regular rhythm Extremities: + edema (dependent) Gastrointestinal (Abdomen): Inspection/Auscultation: + abdomen distended Percussion/Palpation: abdomen soft (hypoactive bowel sounds, clean surgical dressing in place) Musculoskeletal: Extremities: no cyanosis, no clubbing and no petechiae Skin: normal turgor; no rashes Genitourinary: [place] with concentrated urine Results & Data Vital Signs (Past 12 Hours) Vital Signs Temp Pulse Pulse Resp BP BP BP 11/18/18 08:00 36.7 C 93 H 88 16 116/72 85/47 L 135/58 L 06/09/19 07:48 93 H 19 11/18/18 05:41 94 H 17 11/18/18 04:01 36.9 C 83 113/67 11/18/18 04:00 83 103/49 L 11/18/18 03:46 70 11/18/18 03:45 79 105/64 11/18/18 03:30 69 86/50 L 11/18/18 03:15 72 80/44 L 11/18/18 03:01 88 90/47 L 11/18/18 03:00 76 11/18/18 02:45 76 107/55 L 11/18/18 02:31 75 101/57 L 11/18/18 02:23 95 H 19 11/18/18 02:16 79 114/63 11/18/18 02:01 93 H 11/18/18 02:00 84 150/101 H 11/18/18 01:47 87 124/101 H 11/18/18 01:30 73 80/47 L 11/18/18 01:15 94 H 89/58 L 11/18/18 01:00 71 95/56 L 11/18/18 00:46 72 93/51 L 11/18/18 00:31 87 123/68 11/18/18 00:16 94 H 90/58 L 11/18/18 00:01 36.8 C 80 11/18/18 00:00 77 108/57 L 11/17/18 23:46 74 98/49 L 11/17/18 23:36 84 16 11/17/18 23:31 82 113/59 L 11/17/18 23:16 89 140/75 11/17/18 23:01 81 106/65 11/17/18 23:00 82 11/17/18 22:46 90 136/77 11/17/18 22:30 90 91/59 L 11/17/18 22:15 67 81/51 L 11/17/18 22:01 71 11/17/18 22:00 76 79/51 L Pulse Ox 11/18/18 08:00 97 11/18/18 07:48 93 11/18/18 05:41 94 11/18/18 04:01 91 11/18/18 04:00 11/18/18 03:46 92 11/18/18 03:45 91 11/18/18 03:30 90 11/18/18 03:15 91 11/18/18 03:01 98 11/18/18 03:00 11/18/18 02:45 98 11/18/18 02:31 96 11/18/18 02:23 98 11/18/18 02:16 96 11/18/18 02:01 98 11/18/18 02:00 97 11/18/18 01:47 98 11/18/18 01:30 95 11/18/18 01:15 95 11/18/18 01:00 95 11/18/18 00:46 97 11/18/18 00:31 98 11/18/18 00:16 98 11/18/18 00:01 92 11/18/18 00:00 92 11/17/18 23:46 90 11/17/18 23:36 92 11/17/18 23:31 93 11/17/18 23:16 88 L 11/17/18 23:01 93 11/17/18 23:00 11/17/18 22:46 96 11/17/18 22:30 98 11/17/18 22:15 98 11/17/18 22:01 98 11/17/18 22:00 98 Laboratory Results Laboratory Results - last 24 hr 11/17/18 11/17/18 11/17/18 09:18 10:04 11:56 WBC RBC Hgb Hct MCV MCH MCHC RDW Std Deviation RDW Coeff of David Plt Count MPV Immature Gran % (Auto) Neut % (Auto) Lymph % (Auto) [place] % (Auto) Eos % (Auto) Baso % (Auto) Immature Gran # (Auto) Neut # (Auto) Lymph # (Auto) [place] # (Auto) Eos # (Auto) Baso # (Auto) Absolute Nucleated RBC Nucleated RBC % (auto) APTT PTT Ratio Mixed VBG pH 7.37 Mixed VBG pCO2 37 L Mixed VBG pO2 38 L Mixed VBG HCO3 21 Mixed VBG Base Excess -3.7 Mixed VBG O2 Saturation 70.3 H Barometric Pressure 735.7 Sodium Potassium Chloride Carbon Dioxide Anion Gap BUN Creatinine Est Cr Clr Drug Dosing Est GFR ( Amer) Est GFR (Non-Af Amer) BUN/Creatinine Ratio Glucose POC Glucose (other) 199 H 203 H Calcium Phosphorus Magnesium 11/17/18 11/17/18 11/17/18 12:02 13:46 14:33 WBC RBC Hgb Hct MCV MCH MCHC RDW Std Deviation RDW Coeff of David Plt Count MPV Immature Gran % (Auto) Neut % (Auto) Lymph % (Auto) [place] % (Auto) Eos % (Auto) Baso % (Auto) Immature Gran # (Auto) Neut # (Auto) Lymph # (Auto) [place] # (Auto) Eos # (Auto) Baso # (Auto) Absolute Nucleated RBC Nucleated RBC % (auto) APTT > 139.0 H* PTT Ratio > 5.1 Mixed VBG pH Mixed VBG pCO2 Mixed VBG pO2 Mixed VBG HCO3 Mixed VBG Base Excess Mixed VBG O2 Saturation Barometric Pressure Sodium Potassium Chloride Carbon Dioxide Anion Gap BUN Creatinine Est Cr Clr Drug Dosing Est GFR ( Amer) Est GFR (Non-Af Amer) BUN/Creatinine Ratio Glucose POC Glucose (other) 210 H 113 H Calcium Phosphorus Magnesium 11/17/18 11/17/18 11/17/18 15:25 16:04 16:08 WBC RBC Hgb Hct MCV MCH MCHC RDW Std Deviation RDW Coeff of David Plt Count MPV Immature Gran % (Auto) Neut % (Auto) Lymph % (Auto) [place] % (Auto) Eos % (Auto) Baso % (Auto) Immature Gran # (Auto) Neut # (Auto) Lymph # (Auto) [place] # (Auto) Eos # (Auto) Baso # (Auto) Absolute Nucleated RBC Nucleated RBC % (auto) APTT > 139.0 H* PTT Ratio > 5.1 Mixed VBG pH Mixed VBG pCO2 Mixed VBG pO2 Mixed VBG HCO3 Mixed VBG Base Excess Mixed VBG O2 Saturation Barometric Pressure Sodium Potassium Chloride Carbon Dioxide Anion Gap BUN Creatinine Est Cr Clr Drug Dosing Est GFR ( Amer) Est GFR (Non-Af Amer) BUN/Creatinine Ratio Glucose POC Glucose (other) 151 H 160 H Calcium Phosphorus Magnesium 11/17/18 11/17/18 11/17/18 17:25 18:14 18:17 WBC RBC Hgb Hct MCV MCH MCHC RDW Std Deviation RDW Coeff of David Plt Count MPV Immature Gran % (Auto) Neut % (Auto) Lymph % (Auto) [place] % (Auto) Eos % (Auto) Baso % (Auto) Immature Gran # (Auto) Neut # (Auto) Lymph # (Auto) [place] # (Auto) Eos # (Auto) Baso # (Auto) Absolute Nucleated RBC Nucleated RBC % (auto) APTT 57.5 H* PTT Ratio 2.1 Mixed VBG pH Mixed VBG pCO2 Mixed VBG pO2 Mixed VBG HCO3 Mixed VBG Base Excess Mixed VBG O2 Saturation Barometric Pressure Sodium Potassium Chloride Carbon Dioxide Anion Gap BUN Creatinine Est Cr Clr Drug Dosing Est GFR ( Amer) Est GFR (Non-Af Amer) BUN/Creatinine Ratio Glucose POC Glucose (other) 153 H 142 H Calcium Phosphorus Magnesium 11/17/18 11/17/18 11/18/18 20:36 22:57 01:01 WBC RBC Hgb Hct MCV MCH MCHC RDW Std Deviation RDW Coeff of David Plt Count MPV Immature Gran % (Auto) Neut % (Auto) Lymph % (Auto) [place] % (Auto) Eos % (Auto) Baso % (Auto) Immature Gran # (Auto) Neut # (Auto) Lymph # (Auto) [place] # (Auto) Eos # (Auto) Baso # (Auto) Absolute Nucleated RBC Nucleated RBC % (auto) APTT PTT Ratio Mixed VBG pH Mixed VBG pCO2 Mixed VBG pO2 Mixed VBG HCO3 Mixed VBG Base Excess Mixed VBG O2 Saturation Barometric Pressure Sodium Potassium Chloride Carbon Dioxide Anion Gap BUN Creatinine Est Cr Clr Drug Dosing Est GFR ( Amer) Est GFR (Non-Af Amer) BUN/Creatinine Ratio Glucose POC Glucose (other) 148 H 141 H 127 H Calcium Phosphorus Magnesium 11/18/18 11/18/18 11/18/18 01:07 04:30 04:30 WBC 12.80 H RBC 2.89 L Hgb 8.6 L Hct 24.7 L MCV 85.5 MCH 29.8 MCHC 34.8 RDW Std Deviation 48.7 H RDW Coeff of David 15.4 H Plt Count 162 MPV 9.2 Immature Gran % (Auto) 2.3 Neut % (Auto) 84.3 Lymph % (Auto) 3.8 [place] % (Auto) 9.5 Eos % (Auto) 0.0 Baso % (Auto) 0.1 Immature Gran # (Auto) 0.29 H Neut # (Auto) 10.80 H Lymph # (Auto) 0.49 L [place] # (Auto) 1.21 H Eos # (Auto) 0.00 Baso # (Auto) 0.01 Absolute Nucleated RBC 0.04 H Nucleated RBC % (auto) 0.3 APTT 75.0 H* PTT Ratio 2.8 Mixed VBG pH Mixed VBG pCO2 Mixed VBG pO2 Mixed VBG HCO3 Mixed VBG Base Excess Mixed VBG O2 Saturation Barometric Pressure Sodium 130 L Potassium 3.9 Chloride 97 L Carbon Dioxide 22 Anion Gap 11.0 BUN 41 H Creatinine 4.32 H Est Cr Clr Drug Dosing 12.2 Est GFR ( Amer) 10.4 Est GFR (Non-Af Amer) 8.9 BUN/Creatinine Ratio 9.6 L Glucose 121 H POC Glucose (other) Calcium 7.6 L D Phosphorus 5.6 H Magnesium 2.2 11/18/18 11/18/18 05:07 08:36 WBC RBC Hgb Hct MCV MCH MCHC RDW Std Deviation RDW Coeff of David Plt Count MPV Immature Gran % (Auto) Neut % (Auto) Lymph % (Auto) [place] % (Auto) Eos % (Auto) Baso % (Auto) Immature Gran # (Auto) Neut # (Auto) Lymph # (Auto) [place] # (Auto) Eos # (Auto) Baso # (Auto) Absolute Nucleated RBC Nucleated RBC % (auto) APTT Pending PTT Ratio Pending Mixed VBG pH Mixed VBG pCO2 Mixed VBG pO2 Mixed VBG HCO3 Mixed VBG Base Excess Mixed VBG O2 Saturation Barometric Pressure Sodium Potassium Chloride Carbon Dioxide Anion Gap BUN Creatinine Est Cr Clr Drug Dosing Est GFR ( Amer) Est GFR (Non-Af Amer) BUN/Creatinine Ratio Glucose POC Glucose (other) 119 H Calcium Phosphorus Magnesium
--- NOTE | 2018-11-18 09:59 | Critical Care Progress Note ---
Date of Service November 18, 2018 Assessment & Plan (1) SHAZIA (acute kidney injury): (2) Acute hemodialysis patient: (3) S/P bronchoscopy with bronchoalveolar lavage: (4) Atrial fibrillation status post cardioversion: (5) History of cardioversion: (6) Post-operative state: Reason Critically Ill: 83-year-old female with recent colectomy for recurrent adenocarcinoma of colon, who presented to the ICU postoperatively following an ex-lap which revealed multiple small bowel infarcts and patient underwent small bowel resect, ileocolic resection, mucous fistula, and ileostomy has been septic and requiring intubation Neuro - Anxiety Has been anxious, currently sedated on vent -Versed 2 mg every 2 as needed fentanyl 100 mcg every 2 as needed Agitated this morning, but resolved with an extra 2 mg of versed. Duloxetine: Holding: Prolonged QT Gabapentin: Holding in the setting of acute kidney injury Ambien: Holding Cardiac - AVR/CAD: Status post AVR and CABG x3 in 2016, continue Plavix Hypertension: Losartan held for renal failure, -Holding to hypertensive medications secondary to sepsis associated hypotension Sepsis associated hypotension: Decreasing vasoactive medication requirements Atrial fibrillation with rapid ventricular response -Discontinuing amiodarone secondary to significantly prolonged QTC -Tolerated 15 mg metoprolol and 2.5 mg aliquots -Cardioversion x2 November 16, 2018, cardioversion x1 November 17, 2018 -Currently rate controlled, will consider beta-blockade versus digoxin if patient becomes tachycardic again Hypotension: Multifactorial -Transition pressors to [place]-Synephrine for hopeful reflex bradycardia response -Trend lactates understandably she is predisposed to mesenteric ischemia I hope to de-escalate the alpha stimulation as soon as possible Prolonged QTC -Discontinuing Zofran -Avoid QT prolonging medications Respiratory - -Reintubated secondary to atrial fibrillation with rapid ventricular response and acute decompensation -No growth and BAL GI - Colorectal adenocarcinoma-S/P partial colectomy with ileocolic anastomosis 11/07, developed small bowel infarcts this a.m. and required small bowel resection and ileocolic resection, mucous fistula, ileostomy. -Discussed with Dr. Multani -Core safe in place -Considered restarting trickle feeds however with the increase pressors we will hold inferior nonocclusive bowel ischemia -We will start trickle feeds as soon as possible Hypoalbuminemia GI prophylaxis: Pepcid RENAL/LYTES - Acute renal failure/metabolic acidosis: Patient developed SHAZIA on CKD and has become oliguric -Discussed with Radhames -After discussion with family will attempt dialysis again today - [facility] for strict I's and O's, ENDO - DM: Continuing insulin infusion -ICU hypoglycemic protocol HEME - Heparin infusion for recurrent atrial fibrillation -Transfuse 1 unit of packed red blood cells today ID - Currently on Zosyn -Repeat blood cultures with fungal culture -No growth at present LINES/IV ACCESS - Right IJ: Placed in the operating room Left IJ temporary HD cath placed six 12/28 Endotracheal tube 11/16/2018 Discussed with and nephrology, will attempt dialysis to facilitate extubation. Decreasing vasoactive medication requirements she still requiring rather large amounts of phenylephrine and utilizing this to decrease catecholamines and hopefully mediate a reflex psych response and maintain normal sinus rhythm instead of tachycardia. I am hesitant to trickle tube feeds with the amount of phenylephrine she is requiring hopefully she continues to improve we able to restart feeding within the next 24 hours. If we are unable to complete dialysis the patient may require transfer to facilitate an attempt at [facility] I have personally spent 45 minutes of critical care time in the direct management of this patient. This is a life/limb threatening event. This includes time spent evaluating patient, direct bedside care, chart review, placing orders, interpretation of diagnostic studies, discussion with consultants, patient, and/or family members regarding treatment decisions, as well as other required patient management activities. This time is exclusive of all separately billable procedures, and teaching time and separate from and in addition to any other critical care service time. (7) Atrial fibrillation with RVR: (8) Acute hypoxemic respiratory failure: (9) Sepsis associated hypotension: (10) S/P admission to ICU (intensive care unit): (11) Small bowel infarction: (12) History of aortic valve replacement: (13) Acute respiratory failure with hypoxia: (14) Stage III chronic kidney disease: (15) Depression with anxiety: (16) DVT prophylaxis: (17) History of CVA (cerebrovascular accident): (18) CAD (coronary artery disease): (19) Hypertension: (20) GERD (gastroesophageal reflux disease): (21) Acute renal failure: (22) Recurrent adenocarcinoma of colorectal region: (23) Anxiety: Subjective No overnight events Review of Systems Review of Systems: Unobtainable due to endotracheal tube Physical Exam Physical Exam: General: Alert. nontoxic. Skin: Warm, dry, Head: Atraumatic Ears, nose, mouth and throat: airway patent Cardiovascular: Normal peripheral perfusion Respiratory: no respiratory distress Gastrointestinal: Non distended, small amount of succus in ileostomy bag Musculoskeletal: No deformity Results & Data Vital Signs (Past 12 Hours) Vital Signs Temp Pulse Pulse Resp BP BP BP 11/18/18 08:00 36.7 C 93 H 88 16 116/72 85/47 L 135/58 L 11/18/18 07:48 93 H 19 11/18/18 05:41 94 H 17 11/18/18 04:01 36.9 C 83 113/67 11/18/18 04:00 83 103/49 L 11/18/18 03:46 70 11/18/18 03:45 79 105/64 11/18/18 03:30 69 86/50 L 11/18/18 03:15 72 80/44 L 11/18/18 03:01 88 90/47 L 11/18/18 03:00 76 11/18/18 02:45 76 107/55 L 11/18/18 02:31 75 101/57 L 11/18/18 02:23 95 H 19 11/18/18 02:16 79 114/63 11/18/18 02:01 93 H 11/18/18 02:00 84 150/101 H 11/18/18 01:47 87 124/101 H 11/18/18 01:30 73 80/47 L 11/18/18 01:15 94 H 89/58 L 11/18/18 01:00 71 95/56 L 11/18/18 00:46 72 93/51 L 11/18/18 00:31 87 123/68 11/18/18 00:16 94 H 90/58 L 11/18/18 00:01 36.8 C 80 11/18/18 00:00 77 108/57 L 11/17/18 23:46 74 98/49 L 11/17/18 23:36 84 16 11/17/18 23:31 82 113/59 L 11/17/18 23:16 89 140/75 11/17/18 23:01 81 106/65 11/17/18 23:00 82 11/17/18 22:46 90 136/77 11/17/18 22:30 90 91/59 L 11/17/18 22:15 67 81/51 L 11/17/18 22:01 71 11/17/18 22:00 76 79/51 L Pulse Ox 11/18/18 08:00 97 11/18/18 07:48 93 11/18/18 05:41 94 11/18/18 04:01 91 11/18/18 04:00 11/18/18 03:46 92 11/18/18 03:45 91 11/18/18 03:30 90 11/18/18 03:15 91 11/18/18 03:01 98 11/18/18 03:00 11/18/18 02:45 98 11/18/18 02:31 96 11/18/18 02:23 98 11/18/18 02:16 96 11/18/18 02:01 98 11/18/18 02:00 97 11/18/18 01:47 98 11/18/18 01:30 95 11/18/18 01:15 95 11/18/18 01:00 95 11/18/18 00:46 97 11/18/18 00:31 98 11/18/18 00:16 98 11/18/18 00:01 92 11/18/18 00:00 92 11/17/18 23:46 90 11/17/18 23:36 92 11/17/18 23:31 93 11/17/18 23:16 88 L 11/17/18 23:01 93 11/17/18 23:00 11/17/18 22:46 96 11/17/18 22:30 98 11/17/18 22:15 98 11/17/18 22:01 98 11/17/18 22:00 98 Laboratory Results 11/18/18 11/18/18 11/18/18 Range/Units 08:36 05:07 04:30 WBC 12.80 H (4.8-10.8) K/uL RBC 2.89 L (4.2-5.4) M/uL Hgb 8.6 L (12.0-16.0) g/dL Hct 24.7 L (37-47) % MCV 85.5 (80-100) fL MCH 29.8 (25-34) pg MCHC 34.8 (32-36) g/dL RDW Std Deviation 48.7 H (36.4-46.3) fL RDW Coeff of David 15.4 H (11.5-14.5) % Plt Count 162 (130-400) K/uL MPV 9.2 (7.4-10.4) fL Immature Gran % (Auto) 2.3 % Neut % (Auto) 84.3 % Lymph % (Auto) 3.8 % [place] % (Auto) 9.5 % Eos % (Auto) 0.0 % Baso % (Auto) 0.1 % Immature Gran # (Auto) 0.29 H (0.00-0.02) K/uL Neut # (Auto) 10.80 H (1.4-6.5) K/uL Lymph # (Auto) 0.49 L (1.2-3.4) K/uL [place] # (Auto) 1.21 H (0.11-0.59) K/uL Eos # (Auto) 0.00 (0-0.5) K/uL Baso # (Auto) 0.01 (0-0.2) K/uL Absolute Nucleated RBC 0.04 H (0-0) K/uL Nucleated RBC % (auto) 0.3 % APTT Pending (21.0-31.0) Seconds PTT Ratio Pending Mixed VBG pH (7.35-7.45) Mixed VBG pCO2 (38-50) mmHg Mixed VBG pO2 (80-95) mmHg Mixed VBG HCO3 (19-24) mmol/L Mixed VBG Base Excess (-7.7-1.9) mEq/L Mixed VBG O2 Saturation (68) % Barometric Pressure mm/Hg Sodium (136-145) mmol/L Potassium (3.5-5.1) mmol/L Chloride (98-107) mmol/L Carbon Dioxide (21-32) mmol/L Anion Gap (3-11) BUN (7-18) mg/dl Creatinine (0.6-1.2) mg/dl Est Cr Clr Drug Dosing ml/min Est GFR ( Amer) Est GFR (Non-Af Amer) BUN/Creatinine Ratio (10-20) Glucose (70-99) mg/dl POC Glucose (other) 119 H (70-99) mg/dl Calcium (8.5-10.1) mg/dl Phosphorus (2.5-4.9) mg/dl Magnesium (1.8-2.4) mg/dl 11/18/18 11/18/18 11/18/18 Range/Units 04:30 01:07 01:01 WBC (4.8-10.8) K/uL RBC (4.2-5.4) M/uL Hgb (12.0-16.0) g/dL Hct (37-47) % MCV (80-100) fL MCH (25-34) pg MCHC (32-36) g/dL RDW Std Deviation (36.4-46.3) fL RDW Coeff of David (11.5-14.5) % Plt Count (130-400) K/uL MPV (7.4-10.4) fL Immature Gran % (Auto) % Neut % (Auto) % Lymph % (Auto) % [place] % (Auto) % Eos % (Auto) % Baso % (Auto) % Immature Gran # (Auto) (0.00-0.02) K/uL Neut # (Auto) (1.4-6.5) K/uL Lymph # (Auto) (1.2-3.4) K/uL [place] # (Auto) (0.11-0.59) K/uL Eos # (Auto) (0-0.5) K/uL Baso # (Auto) (0-0.2) K/uL Absolute Nucleated RBC (0-0) K/uL Nucleated RBC % (auto) % APTT 75.0 H* (21.0-31.0) Seconds PTT Ratio 2.8 Mixed VBG pH (7.35-7.45) Mixed VBG pCO2 (38-50) mmHg Mixed VBG pO2 (80-95) mmHg Mixed VBG HCO3 (19-24) mmol/L Mixed VBG Base Excess (-7.7-1.9) mEq/L Mixed VBG O2 Saturation (68) % Barometric Pressure mm/Hg Sodium 130 L (136-145) mmol/L Potassium 3.9 (3.5-5.1) mmol/L Chloride 97 L (98-107) mmol/L Carbon Dioxide 22 (21-32) mmol/L Anion Gap 11.0 (3-11) BUN 41 H (7-18) mg/dl Creatinine 4.32 H (0.6-1.2) mg/dl Est Cr Clr Drug Dosing 12.2 ml/min Est GFR ( Amer) 10.4 Est GFR (Non-Af Amer) 8.9 BUN/Creatinine Ratio 9.6 L (10-20) Glucose 121 H (70-99) mg/dl POC Glucose (other) 127 H (70-99) mg/dl Calcium 7.6 L D (8.5-10.1) mg/dl Phosphorus 5.6 H (2.5-4.9) mg/dl Magnesium 2.2 (1.8-2.4) mg/dl 11/17/18 11/17/18 11/17/18 Range/Units 22:57 20:36 18:17 WBC (4.8-10.8) K/uL RBC (4.2-5.4) M/uL Hgb (12.0-16.0) g/dL Hct (37-47) % MCV (80-100) fL MCH (25-34) pg MCHC (32-36) g/dL RDW Std Deviation (36.4-46.3) fL RDW Coeff of David (11.5-14.5) % Plt Count (130-400) K/uL MPV (7.4-10.4) fL Immature Gran % (Auto) % Neut % (Auto) % Lymph % (Auto) % [place] % (Auto) % Eos % (Auto) % Baso % (Auto) % Immature Gran # (Auto) (0.00-0.02) K/uL Neut # (Auto) (1.4-6.5) K/uL Lymph # (Auto) (1.2-3.4) K/uL [place] # (Auto) (0.11-0.59) K/uL Eos # (Auto) (0-0.5) K/uL Baso # (Auto) (0-0.2) K/uL Absolute Nucleated RBC (0-0) K/uL Nucleated RBC % (auto) % APTT (21.0-31.0) Seconds PTT Ratio Mixed VBG pH (7.35-7.45) Mixed VBG pCO2 (38-50) mmHg Mixed VBG pO2 (80-95) mmHg Mixed VBG HCO3 (19-24) mmol/L Mixed VBG Base Excess (-7.7-1.9) mEq/L Mixed VBG O2 Saturation (68) % Barometric Pressure mm/Hg Sodium (136-145) mmol/L Potassium (3.5-5.1) mmol/L Chloride (98-107) mmol/L Carbon Dioxide (21-32) mmol/L Anion Gap (3-11) BUN (7-18) mg/dl Creatinine (0.6-1.2) mg/dl Est Cr Clr Drug Dosing ml/min Est GFR ( Amer) Est GFR (Non-Af Amer) BUN/Creatinine Ratio (10-20) Glucose (70-99) mg/dl POC Glucose (other) 141 H 148 H 142 H (70-99) mg/dl Calcium (8.5-10.1) mg/dl Phosphorus (2.5-4.9) mg/dl Magnesium (1.8-2.4) mg/dl 11/17/18 11/17/18 11/17/18 Range/Units 18:14 17:25 16:08 WBC (4.8-10.8) K/uL RBC (4.2-5.4) M/uL Hgb (12.0-16.0) g/dL Hct (37-47) % MCV (80-100) fL MCH (25-34) pg MCHC (32-36) g/dL RDW Std Deviation (36.4-46.3) fL RDW Coeff of David (11.5-14.5) % Plt Count (130-400) K/uL MPV (7.4-10.4) fL Immature Gran % (Auto) % Neut % (Auto) % Lymph % (Auto) % [place] % (Auto) % Eos % (Auto) % Baso % (Auto) % Immature Gran # (Auto) (0.00-0.02) K/uL Neut # (Auto) (1.4-6.5) K/uL Lymph # (Auto) (1.2-3.4) K/uL [place] # (Auto) (0.11-0.59) K/uL Eos # (Auto) (0-0.5) K/uL Baso # (Auto) (0-0.2) K/uL Absolute Nucleated RBC (0-0) K/uL Nucleated RBC % (auto) % APTT 57.5 H* (21.0-31.0) Seconds PTT Ratio 2.1 Mixed VBG pH (7.35-7.45) Mixed VBG pCO2 (38-50) mmHg Mixed VBG pO2 (80-95) mmHg Mixed VBG HCO3 (19-24) mmol/L Mixed VBG Base Excess (-7.7-1.9) mEq/L Mixed VBG O2 Saturation (68) % Barometric Pressure mm/Hg Sodium (136-145) mmol/L Potassium (3.5-5.1) mmol/L Chloride (98-107) mmol/L Carbon Dioxide (21-32) mmol/L Anion Gap (3-11) BUN (7-18) mg/dl Creatinine (0.6-1.2) mg/dl Est Cr Clr Drug Dosing ml/min Est GFR ( Amer) Est GFR (Non-Af Amer) BUN/Creatinine Ratio (10-20) Glucose (70-99) mg/dl POC Glucose (other) 153 H 160 H (70-99) mg/dl Calcium (8.5-10.1) mg/dl Phosphorus (2.5-4.9) mg/dl Magnesium (1.8-2.4) mg/dl 11/17/18 11/17/18 11/17/18 Range/Units 16:04 15:25 14:33 WBC (4.8-10.8) K/uL RBC (4.2-5.4) M/uL Hgb (12.0-16.0) g/dL Hct (37-47) % MCV (80-100) fL MCH (25-34) pg MCHC (32-36) g/dL RDW Std Deviation (36.4-46.3) fL RDW Coeff of David (11.5-14.5) % Plt Count (130-400) K/uL MPV (7.4-10.4) fL Immature Gran % (Auto) % Neut % (Auto) % Lymph % (Auto) % [place] % (Auto) % Eos % (Auto) % Baso % (Auto) % Immature Gran # (Auto) (0.00-0.02) K/uL Neut # (Auto) (1.4-6.5) K/uL Lymph # (Auto) (1.2-3.4) K/uL [place] # (Auto) (0.11-0.59) K/uL Eos # (Auto) (0-0.5) K/uL Baso # (Auto) (0-0.2) K/uL Absolute Nucleated RBC (0-0) K/uL Nucleated RBC % (auto) % APTT > 139.0 H* (21.0-31.0) Seconds PTT Ratio > 5.1 Mixed VBG pH (7.35-7.45) Mixed VBG pCO2 (38-50) mmHg Mixed VBG pO2 (80-95) mmHg Mixed VBG HCO3 (19-24) mmol/L Mixed VBG Base Excess (-7.7-1.9) mEq/L Mixed VBG O2 Saturation (68) % Barometric Pressure mm/Hg Sodium (136-145) mmol/L Potassium (3.5-5.1) mmol/L Chloride (98-107) mmol/L Carbon Dioxide (21-32) mmol/L Anion Gap (3-11) BUN (7-18) mg/dl Creatinine (0.6-1.2) mg/dl Est Cr Clr Drug Dosing ml/min Est GFR ( Amer) Est GFR (Non-Af Amer) BUN/Creatinine Ratio (10-20) Glucose (70-99) mg/dl POC Glucose (other) 151 H 113 H (70-99) mg/dl Calcium (8.5-10.1) mg/dl Phosphorus (2.5-4.9) mg/dl Magnesium (1.8-2.4) mg/dl 11/17/18 11/17/18 11/17/18 Range/Units 13:46 12:02 11:56 WBC (4.8-10.8) K/uL RBC (4.2-5.4) M/uL Hgb (12.0-16.0) g/dL Hct (37-47) % MCV (80-100) fL MCH (25-34) pg MCHC (32-36) g/dL RDW Std Deviation (36.4-46.3) fL RDW Coeff of David (11.5-14.5) % Plt Count (130-400) K/uL MPV (7.4-10.4) fL Immature Gran % (Auto) % Neut % (Auto) % Lymph % (Auto) % [place] % (Auto) % Eos % (Auto) % Baso % (Auto) % Immature Gran # (Auto) (0.00-0.02) K/uL Neut # (Auto) (1.4-6.5) K/uL Lymph # (Auto) (1.2-3.4) K/uL [place] # (Auto) (0.11-0.59) K/uL Eos # (Auto) (0-0.5) K/uL Baso # (Auto) (0-0.2) K/uL Absolute Nucleated RBC (0-0) K/uL Nucleated RBC % (auto) % APTT > 139.0 H* (21.0-31.0) Seconds PTT Ratio > 5.1 Mixed VBG pH 7.37 (7.35-7.45) Mixed VBG pCO2 37 L (38-50) mmHg Mixed VBG pO2 38 L (80-95) mmHg Mixed VBG HCO3 21 (19-24) mmol/L Mixed VBG Base Excess -3.7 (-7.7-1.9) mEq/L Mixed VBG O2 Saturation 70.3 H (68) % Barometric Pressure 735.7 mm/Hg Sodium (136-145) mmol/L Potassium (3.5-5.1) mmol/L Chloride (98-107) mmol/L Carbon Dioxide (21-32) mmol/L Anion Gap (3-11) BUN (7-18) mg/dl Creatinine (0.6-1.2) mg/dl Est Cr Clr Drug Dosing ml/min Est GFR ( Amer) Est GFR (Non-Af Amer) BUN/Creatinine Ratio (10-20) Glucose (70-99) mg/dl POC Glucose (other) 210 H (70-99) mg/dl Calcium (8.5-10.1) mg/dl Phosphorus (2.5-4.9) mg/dl Magnesium (1.8-2.4) mg/dl 11/17/18 11/17/18 Range/Units 10:04 09:18 WBC (4.8-10.8) K/uL RBC (4.2-5.4) M/uL Hgb (12.0-16.0) g/dL Hct (37-47) % MCV (80-100) fL MCH (25-34) pg MCHC (32-36) g/dL RDW Std Deviation (36.4-46.3) fL RDW Coeff of David (11.5-14.5) % Plt Count (130-400) K/uL MPV (7.4-10.4) fL Immature Gran % (Auto) % Neut % (Auto) % Lymph % (Auto) % [place] % (Auto) % Eos % (Auto) % Baso % (Auto) % Immature Gran # (Auto) (0.00-0.02) K/uL Neut # (Auto) (1.4-6.5) K/uL Lymph # (Auto) (1.2-3.4) K/uL [place] # (Auto) (0.11-0.59) K/uL Eos # (Auto) (0-0.5) K/uL Baso # (Auto) (0-0.2) K/uL Absolute Nucleated RBC (0-0) K/uL Nucleated RBC % (auto) % APTT (21.0-31.0) Seconds PTT Ratio Mixed VBG pH (7.35-7.45) Mixed VBG pCO2 (38-50) mmHg Mixed VBG pO2 (80-95) mmHg Mixed VBG HCO3 (19-24) mmol/L Mixed VBG Base Excess (-7.7-1.9) mEq/L Mixed VBG O2 Saturation (68) % Barometric Pressure mm/Hg Sodium (136-145) mmol/L Potassium (3.5-5.1) mmol/L Chloride (98-107) mmol/L Carbon Dioxide (21-32) mmol/L Anion Gap (3-11) BUN (7-18) mg/dl Creatinine (0.6-1.2) mg/dl Est Cr Clr Drug Dosing ml/min Est GFR ( Amer) Est GFR (Non-Af Amer) BUN/Creatinine Ratio (10-20) Glucose (70-99) mg/dl POC Glucose (other) 203 H 199 H (70-99) mg/dl Calcium (8.5-10.1) mg/dl Phosphorus (2.5-4.9) mg/dl Magnesium (1.8-2.4) mg/dl Critical Care Time Critical Care Time: Yes Total Critical Care Time: 45
--- NOTE | 2018-11-18 11:09 | Hospitalist Progress Note ---
Date of Service November 18, 2018 Assessment & Plan (1) Sepsis associated hypotension: - Required upgrade to ICU on 11/13/18; re-intubated on 11/16/18. - Continue pressor support per briar cutter. - Stress dose steroids with Hydrocortisone 50 mg IV q8hr. - Continue Zosyn IV for empiric coverage. (2) Small bowel infarction: - S/p urgent laparotomy with small bowel resection, ileocolic resection, mucous fistula, ileostomy and abdominal washout on 11/13 due to multiple small infarcts. - Chief Resource Officer and general surgery following. - NPO except meds; plan to start trickle feeds as soon as possible. (3) Recurrent adenocarcinoma of colorectal region: - S/p hemicolectomy in 2007; s/p partial colectomy on 11/07 for recurrent cancer followed by urgent laparotomy as noted above. - Primary management per surgery team & ICU team. (4) Acute respiratory failure with hypoxia: - Echo 11/13 with decreased EF 45-50% with mild global hypokinesis and elevated right ventricular pressures. - Re-intubated on 11/16; bronch completed, cultures negative to date. - Management per ICU team. (5) Acute renal failure: - Creatinine remains elevated with metabolic acidosis. - Figueroa for accurate I/Os; monitor daily weights. - Nephrology following, plan for HD today. - Holding all nephrotoxic agents. (6) Stage III chronic kidney disease: - Renally dose all meds. (7) Atrial fibrillation with RVR: - Required cardioversion x 2 on 11/16 and once on 11/17/18. - D/c'ed Amiodarone drip due to prolonged QTc. - Heparin drip for anticoagulation. (8) Prolonged QT interval: - Hold all QT prolonging agents if possible. - Most recent QTc was 585 on 11/17/18. (9) Diabetes: - Hemoglobin A1C was 7.6. - Glucose management per ICU team. (10) CAD (coronary artery disease): - CAD S/P CABG x 3. - Follows with [facility], had pre-operative assessment/clearance. - Continue statin and plavix as prescribed. - Holding Imdur and Metoprolol. (11) History of aortic valve replacement: - AVR with Bioprosthetic (2016). - Well functioning per echo. (12) Hypertension: - Holding ARB due to SHAZIA and hypotension. - Beta jaron and Imdur also on hold. - Currently requiring pressor support x 2. (13) Obstructive sleep apnea of adult: - Pt. uses CPAP qhs. - Remains intubated. (14) PMR (polymyalgia rheumatica): - On Prednisone 5 mg daily at home -- receiving stress dose steroids. (15) Depression with anxiety: - Holding home Cymbalta in setting of prolonged QTc. (16) History of CVA (cerebrovascular accident): - Occurred following surgery (AVR). - Continue Plavix, statin as prescribed. (17) GERD (gastroesophageal reflux disease): - Famotidine 20 mg IV qAM. (18) DVT prophylaxis: - Heparin drip. Dispo: ICU status, will continue to follow. Supervising Physician Co-Signing Physician Notes NEAL Supervision Note: I did not personally see or examine the patient today, but I verified all schneider points of NEAL Ayala's assessment and plan with the following exceptions/additions: None Subjective Pt. remains intubated -- family present at bedside. She is agitated this morning -- will likely need to increase sedation. Plan for HD per nephro. Primary care per ICU, surgery and nephro team. Review of Systems Review of Systems: Unobtainable due to endotracheal tube Physical Exam Physical Exam: General: Agitated, responsive to verbal stimuli. HEENT: NC/AT; PERRLA with EOMI; [place] conjunctiva, MMM. Neck: Supple and nontender Cardiac: Tachycardic, regular rhythm. Lungs: intubated. Abdomen: BS normoactive x 4, did not palpate. Extremities: Warm. No edema present Neuro: No focal weakness Skin: No rash Results & Data Vital Signs (Past 12 Hours) Vital Signs Temp Pulse Pulse Resp BP BP BP 11/18/18 08:00 36.7 C 93 H 88 16 116/72 85/47 L 135/58 L 11/18/18 07:48 93 H 19 11/18/18 05:41 94 H 17 11/18/18 04:01 36.9 C 83 113/67 11/18/18 04:00 83 103/49 L 11/18/18 03:46 70 11/18/18 03:45 79 105/64 11/18/18 03:30 69 86/50 L 11/18/18 03:15 72 80/44 L 11/18/18 03:01 88 90/47 L 11/18/18 03:00 76 11/18/18 02:45 76 107/55 L 11/18/18 02:31 75 101/57 L 11/18/18 02:23 95 H 19 11/18/18 02:16 79 114/63 11/18/18 02:01 93 H 11/18/18 02:00 84 150/101 H 11/18/18 01:47 87 124/101 H 11/18/18 01:30 73 80/47 L 11/18/18 01:15 94 H 89/58 L 11/18/18 01:00 71 95/56 L 11/18/18 00:46 72 93/51 L 11/18/18 00:31 87 123/68 11/18/18 00:16 94 H 90/58 L 11/18/18 00:01 36.8 C 80 11/18/18 00:00 77 108/57 L 11/17/18 23:46 74 98/49 L 11/17/18 23:36 84 16 11/17/18 23:31 82 113/59 L 11/17/18 23:16 89 140/75 11/17/18 23:01 81 106/65 11/17/18 23:00 82 Pulse Ox 11/18/18 08:00 97 11/18/18 07:48 93 11/18/18 05:41 94 11/18/18 04:01 91 11/18/18 04:00 11/18/18 03:46 92 11/18/18 03:45 91 11/18/18 03:30 90 11/18/18 03:15 91 11/18/18 03:01 98 11/18/18 03:00 11/18/18 02:45 98 11/18/18 02:31 96 11/18/18 02:23 98 11/18/18 02:16 96 11/18/18 02:01 98 11/18/18 02:00 97 11/18/18 01:47 98 11/18/18 01:30 95 11/18/18 01:15 95 11/18/18 01:00 95 11/18/18 00:46 97 11/18/18 00:31 98 11/18/18 00:16 98 11/18/18 00:01 92 11/18/18 00:00 92 11/17/18 23:46 90 11/17/18 23:36 92 11/17/18 23:31 93 11/17/18 23:16 88 L 11/17/18 23:01 93 11/17/18 23:00 Laboratory Results 11/18/18 11/18/18 11/18/18 Range/Units 10:06 08:36 05:07 WBC (4.8-10.8) K/uL RBC (4.2-5.4) M/uL Hgb (12.0-16.0) g/dL Hct (37-47) % MCV (80-100) fL MCH (25-34) pg MCHC (32-36) g/dL RDW Std Deviation (36.4-46.3) fL RDW Coeff of David (11.5-14.5) % Plt Count (130-400) K/uL MPV (7.4-10.4) fL Immature Gran % (Auto) % Neut % (Auto) % Lymph % (Auto) % Beaver % (Auto) % Eos % (Auto) % Baso % (Auto) % Immature Gran # (Auto) (0.00-0.02) K/uL Neut # (Auto) (1.4-6.5) K/uL Lymph # (Auto) (1.2-3.4) K/uL Beaver # (Auto) (0.11-0.59) K/uL Eos # (Auto) (0-0.5) K/uL Baso # (Auto) (0-0.2) K/uL Absolute Nucleated RBC (0-0) K/uL Nucleated RBC % (auto) % APTT 49.0 H* (21.0-31.0) Seconds PTT Ratio 1.8 Mixed VBG pH (7.35-7.45) Mixed VBG pCO2 (38-50) mmHg Mixed VBG pO2 (80-95) mmHg Mixed VBG HCO3 (19-24) mmol/L Mixed VBG Base Excess (-7.7-1.9) mEq/L Mixed VBG O2 Saturation (68) % Barometric Pressure mm/Hg Sodium (136-145) mmol/L Potassium (3.5-5.1) mmol/L Chloride (98-107) mmol/L Carbon Dioxide (21-32) mmol/L Anion Gap (3-11) BUN (7-18) mg/dl Creatinine (0.6-1.2) mg/dl Est Cr Clr Drug Dosing ml/min Est GFR ( Amer) Est GFR (Non-Af Amer) BUN/Creatinine Ratio (10-20) Glucose (70-99) mg/dl POC Glucose (other) 119 H (70-99) mg/dl Calcium (8.5-10.1) mg/dl Phosphorus (2.5-4.9) mg/dl Magnesium (1.8-2.4) mg/dl Blood Type Pending Antibody Screen Pending Crossmatch See Detail 11/18/18 11/18/18 11/18/18 Range/Units 04:30 04:30 01:07 WBC 12.80 H (4.8-10.8) K/uL RBC 2.89 L (4.2-5.4) M/uL Hgb 8.6 L (12.0-16.0) g/dL Hct 24.7 L (37-47) % MCV 85.5 (80-100) fL MCH 29.8 (25-34) pg MCHC 34.8 (32-36) g/dL RDW Std Deviation 48.7 H (36.4-46.3) fL RDW Coeff of David 15.4 H (11.5-14.5) % Plt Count 162 (130-400) K/uL MPV 9.2 (7.4-10.4) fL Immature Gran % (Auto) 2.3 % Neut % (Auto) 84.3 % Lymph % (Auto) 3.8 % Beaver % (Auto) 9.5 % Eos % (Auto) 0.0 % Baso % (Auto) 0.1 % Immature Gran # (Auto) 0.29 H (0.00-0.02) K/uL Neut # (Auto) 10.80 H (1.4-6.5) K/uL Lymph # (Auto) 0.49 L (1.2-3.4) K/uL Beaver # (Auto) 1.21 H (0.11-0.59) K/uL Eos # (Auto) 0.00 (0-0.5) K/uL Baso # (Auto) 0.01 (0-0.2) K/uL Absolute Nucleated RBC 0.04 H (0-0) K/uL Nucleated RBC % (auto) 0.3 % APTT 75.0 H* (21.0-31.0) Seconds PTT Ratio 2.8 Mixed VBG pH (7.35-7.45) Mixed VBG pCO2 (38-50) mmHg Mixed VBG pO2 (80-95) mmHg Mixed VBG HCO3 (19-24) mmol/L Mixed VBG Base Excess (-7.7-1.9) mEq/L Mixed VBG O2 Saturation (68) % Barometric Pressure mm/Hg Sodium 130 L (136-145) mmol/L Potassium 3.9 (3.5-5.1) mmol/L Chloride 97 L (98-107) mmol/L Carbon Dioxide 22 (21-32) mmol/L Anion Gap 11.0 (3-11) BUN 41 H (7-18) mg/dl Creatinine 4.32 H (0.6-1.2) mg/dl Est Cr Clr Drug Dosing 12.2 ml/min Est GFR ( Amer) 10.4 Est GFR (Non-Af Amer) 8.9 BUN/Creatinine Ratio 9.6 L (10-20) Glucose 121 H (70-99) mg/dl POC Glucose (other) (70-99) mg/dl Calcium 7.6 L D (8.5-10.1) mg/dl Phosphorus 5.6 H (2.5-4.9) mg/dl Magnesium 2.2 (1.8-2.4) mg/dl Blood Type Antibody Screen Crossmatch 11/18/18 11/17/18 11/17/18 Range/Units 01:01 22:57 20:36 WBC (4.8-10.8) K/uL RBC (4.2-5.4) M/uL Hgb (12.0-16.0) g/dL Hct (37-47) % MCV (80-100) fL MCH (25-34) pg MCHC (32-36) g/dL RDW Std Deviation (36.4-46.3) fL RDW Coeff of David (11.5-14.5) % Plt Count (130-400) K/uL MPV (7.4-10.4) fL Immature Gran % (Auto) % Neut % (Auto) % Lymph % (Auto) % Beaver % (Auto) % Eos % (Auto) % Baso % (Auto) % Immature Gran # (Auto) (0.00-0.02) K/uL Neut # (Auto) (1.4-6.5) K/uL Lymph # (Auto) (1.2-3.4) K/uL Beaver # (Auto) (0.11-0.59) K/uL Eos # (Auto) (0-0.5) K/uL Baso # (Auto) (0-0.2) K/uL Absolute Nucleated RBC (0-0) K/uL Nucleated RBC % (auto) % APTT (21.0-31.0) Seconds PTT Ratio Mixed VBG pH (7.35-7.45) Mixed VBG pCO2 (38-50) mmHg Mixed VBG pO2 (80-95) mmHg Mixed VBG HCO3 (19-24) mmol/L Mixed VBG Base Excess (-7.7-1.9) mEq/L Mixed VBG O2 Saturation (68) % Barometric Pressure mm/Hg Sodium (136-145) mmol/L Potassium (3.5-5.1) mmol/L Chloride (98-107) mmol/L Carbon Dioxide (21-32) mmol/L Anion Gap (3-11) BUN (7-18) mg/dl Creatinine (0.6-1.2) mg/dl Est Cr Clr Drug Dosing ml/min Est GFR ( Amer) Est GFR (Non-Af Amer) BUN/Creatinine Ratio (10-20) Glucose (70-99) mg/dl POC Glucose (other) 127 H 141 H 148 H (70-99) mg/dl Calcium (8.5-10.1) mg/dl Phosphorus (2.5-4.9) mg/dl Magnesium (1.8-2.4) mg/dl Blood Type Antibody Screen Crossmatch 11/17/18 11/17/18 11/17/18 Range/Units 18:17 18:14 17:25 WBC (4.8-10.8) K/uL RBC (4.2-5.4) M/uL Hgb (12.0-16.0) g/dL Hct (37-47) % MCV (80-100) fL MCH (25-34) pg MCHC (32-36) g/dL RDW Std Deviation (36.4-46.3) fL RDW Coeff of David (11.5-14.5) % Plt Count (130-400) K/uL MPV (7.4-10.4) fL Immature Gran % (Auto) % Neut % (Auto) % Lymph % (Auto) % Beaver % (Auto) % Eos % (Auto) % Baso % (Auto) % Immature Gran # (Auto) (0.00-0.02) K/uL Neut # (Auto) (1.4-6.5) K/uL Lymph # (Auto) (1.2-3.4) K/uL Beaver # (Auto) (0.11-0.59) K/uL Eos # (Auto) (0-0.5) K/uL Baso # (Auto) (0-0.2) K/uL Absolute Nucleated RBC (0-0) K/uL Nucleated RBC % (auto) % APTT 57.5 H* (21.0-31.0) Seconds PTT Ratio 2.1 Mixed VBG pH (7.35-7.45) Mixed VBG pCO2 (38-50) mmHg Mixed VBG pO2 (80-95) mmHg Mixed VBG HCO3 (19-24) mmol/L Mixed VBG Base Excess (-7.7-1.9) mEq/L Mixed VBG O2 Saturation (68) % Barometric Pressure mm/Hg Sodium (136-145) mmol/L Potassium (3.5-5.1) mmol/L Chloride (98-107) mmol/L Carbon Dioxide (21-32) mmol/L Anion Gap (3-11) BUN (7-18) mg/dl Creatinine (0.6-1.2) mg/dl Est Cr Clr Drug Dosing ml/min Est GFR ( Amer) Est GFR (Non-Af Amer) BUN/Creatinine Ratio (10-20) Glucose (70-99) mg/dl POC Glucose (other) 142 H 153 H (70-99) mg/dl Calcium (8.5-10.1) mg/dl Phosphorus (2.5-4.9) mg/dl Magnesium (1.8-2.4) mg/dl Blood Type Antibody Screen Crossmatch 11/17/18 11/17/18 11/17/18 Range/Units 16:08 16:04 15:25 WBC (4.8-10.8) K/uL RBC (4.2-5.4) M/uL Hgb (12.0-16.0) g/dL Hct (37-47) % MCV (80-100) fL MCH (25-34) pg MCHC (32-36) g/dL RDW Std Deviation (36.4-46.3) fL RDW Coeff of David (11.5-14.5) % Plt Count (130-400) K/uL MPV (7.4-10.4) fL Immature Gran % (Auto) % Neut % (Auto) % Lymph % (Auto) % Beaver % (Auto) % Eos % (Auto) % Baso % (Auto) % Immature Gran # (Auto) (0.00-0.02) K/uL Neut # (Auto) (1.4-6.5) K/uL Lymph # (Auto) (1.2-3.4) K/uL Beaver # (Auto) (0.11-0.59) K/uL Eos # (Auto) (0-0.5) K/uL Baso # (Auto) (0-0.2) K/uL Absolute Nucleated RBC (0-0) K/uL Nucleated RBC % (auto) % APTT > 139.0 H* (21.0-31.0) Seconds PTT Ratio > 5.1 Mixed VBG pH (7.35-7.45) Mixed VBG pCO2 (38-50) mmHg Mixed VBG pO2 (80-95) mmHg Mixed VBG HCO3 (19-24) mmol/L Mixed VBG Base Excess (-7.7-1.9) mEq/L Mixed VBG O2 Saturation (68) % Barometric Pressure mm/Hg Sodium (136-145) mmol/L Potassium (3.5-5.1) mmol/L Chloride (98-107) mmol/L Carbon Dioxide (21-32) mmol/L Anion Gap (3-11) BUN (7-18) mg/dl Creatinine (0.6-1.2) mg/dl Est Cr Clr Drug Dosing ml/min Est GFR ( Amer) Est GFR (Non-Af Amer) BUN/Creatinine Ratio (10-20) Glucose (70-99) mg/dl POC Glucose (other) 160 H 151 H (70-99) mg/dl Calcium (8.5-10.1) mg/dl Phosphorus (2.5-4.9) mg/dl Magnesium (1.8-2.4) mg/dl Blood Type Antibody Screen Crossmatch 11/17/18 11/17/18 11/17/18 Range/Units 14:33 13:46 12:02 WBC (4.8-10.8) K/uL RBC (4.2-5.4) M/uL Hgb (12.0-16.0) g/dL Hct (37-47) % MCV (80-100) fL MCH (25-34) pg MCHC (32-36) g/dL RDW Std Deviation (36.4-46.3) fL RDW Coeff of David (11.5-14.5) % Plt Count (130-400) K/uL MPV (7.4-10.4) fL Immature Gran % (Auto) % Neut % (Auto) % Lymph % (Auto) % Beaver % (Auto) % Eos % (Auto) % Baso % (Auto) % Immature Gran # (Auto) (0.00-0.02) K/uL Neut # (Auto) (1.4-6.5) K/uL Lymph # (Auto) (1.2-3.4) K/uL Beaver # (Auto) (0.11-0.59) K/uL Eos # (Auto) (0-0.5) K/uL Baso # (Auto) (0-0.2) K/uL Absolute Nucleated RBC (0-0) K/uL Nucleated RBC % (auto) % APTT > 139.0 H* (21.0-31.0) Seconds PTT Ratio > 5.1 Mixed VBG pH (7.35-7.45) Mixed VBG pCO2 (38-50) mmHg Mixed VBG pO2 (80-95) mmHg Mixed VBG HCO3 (19-24) mmol/L Mixed VBG Base Excess (-7.7-1.9) mEq/L Mixed VBG O2 Saturation (68) % Barometric Pressure mm/Hg Sodium (136-145) mmol/L Potassium (3.5-5.1) mmol/L Chloride (98-107) mmol/L Carbon Dioxide (21-32) mmol/L Anion Gap (3-11) BUN (7-18) mg/dl Creatinine (0.6-1.2) mg/dl Est Cr Clr Drug Dosing ml/min Est GFR ( Amer) Est GFR (Non-Af Amer) BUN/Creatinine Ratio (10-20) Glucose (70-99) mg/dl POC Glucose (other) 113 H 210 H (70-99) mg/dl Calcium (8.5-10.1) mg/dl Phosphorus (2.5-4.9) mg/dl Magnesium (1.8-2.4) mg/dl Blood Type Antibody Screen Crossmatch 11/17/18 11/17/18 11/17/18 Range/Units 11:56 10:04 09:18 WBC (4.8-10.8) K/uL RBC (4.2-5.4) M/uL Hgb (12.0-16.0) g/dL Hct (37-47) % MCV (80-100) fL MCH (25-34) pg MCHC (32-36) g/dL RDW Std Deviation (36.4-46.3) fL RDW Coeff of David (11.5-14.5) % Plt Count (130-400) K/uL MPV (7.4-10.4) fL Immature Gran % (Auto) % Neut % (Auto) % Lymph % (Auto) % Beaver % (Auto) % Eos % (Auto) % Baso % (Auto) % Immature Gran # (Auto) (0.00-0.02) K/uL Neut # (Auto) (1.4-6.5) K/uL Lymph # (Auto) (1.2-3.4) K/uL Beaver # (Auto) (0.11-0.59) K/uL Eos # (Auto) (0-0.5) K/uL Baso # (Auto) (0-0.2) K/uL Absolute Nucleated RBC (0-0) K/uL Nucleated RBC % (auto) % APTT (21.0-31.0) Seconds PTT Ratio Mixed VBG pH 7.37 (7.35-7.45) Mixed VBG pCO2 37 L (38-50) mmHg Mixed VBG pO2 38 L (80-95) mmHg Mixed VBG HCO3 21 (19-24) mmol/L Mixed VBG Base Excess -3.7 (-7.7-1.9) mEq/L Mixed VBG O2 Saturation 70.3 H (68) % Barometric Pressure 735.7 mm/Hg Sodium (136-145) mmol/L Potassium (3.5-5.1) mmol/L Chloride (98-107) mmol/L Carbon Dioxide (21-32) mmol/L Anion Gap (3-11) BUN (7-18) mg/dl Creatinine (0.6-1.2) mg/dl Est Cr Clr Drug Dosing ml/min Est GFR ( Amer) Est GFR (Non-Af Amer) BUN/Creatinine Ratio (10-20) Glucose (70-99) mg/dl POC Glucose (other) 203 H 199 H (70-99) mg/dl Calcium (8.5-10.1) mg/dl Phosphorus (2.5-4.9) mg/dl Magnesium (1.8-2.4) mg/dl Blood Type Antibody Screen Crossmatch
--- NOTE | 2018-11-18 11:48 | Surgery Progress Note ---
Date of Service November 18, 2018 Assessment & Plan (1) Small bowel infarction: Status post resection of portion of colon with recurrent cancer then requiring reoperation for ischemic small bowel Requiring less pressors but still on lyn-and levo fed Dialysis to be attempted again today Management as per ICU team Continue NG tube for now and continue SANDY drains Subjective Remains intubated and sedated Dialysis attempted yesterday but she went into rapid A. fib and had to be discontinued Going to attempt dialysis again today There has been some output from the ileostomy SANDY drains put out approximately 50 to 60 cc every 4 hours but appears ser osanguineous Physical Exam Gastrointestinal (Abdomen): Inspection/Auscultation: + abdominal surgical incision (Clean dry and intact); abdomen not distended Percussion/Palpation: + abdomen tender and abdomen soft Mucous fistula and ileostomy appear healthy Results & Data Vital Signs (Past 12 Hours) Vital Signs Temp Pulse Pulse Resp BP BP BP 11/18/18 11:15 93 H 16 11/18/18 08:00 36.7 C 93 H 88 16 116/72 85/47 L 135/58 L 11/18/18 07:48 93 H 19 11/18/18 05:41 94 H 17 11/18/18 04:01 36.9 C 83 113/67 11/18/18 04:00 83 103/49 L 11/18/18 03:46 70 11/18/18 03:45 79 105/64 11/18/18 03:30 69 86/50 L 11/18/18 03:15 72 80/44 L 11/18/18 03:01 88 90/47 L 11/18/18 03:00 76 11/18/18 02:45 76 107/55 L 11/18/18 02:31 75 101/57 L 11/18/18 02:23 95 H 19 11/18/18 02:16 79 114/63 11/18/18 02:01 93 H 11/18/18 02:00 84 150/101 H 11/18/18 01:47 87 124/101 H 11/18/18 01:30 73 80/47 L 11/18/18 01:15 94 H 89/58 L 11/18/18 01:00 71 95/56 L 11/18/18 00:46 72 93/51 L 11/18/18 00:31 87 123/68 11/18/18 00:16 94 H 90/58 L 11/18/18 00:01 36.8 C 80 11/18/18 00:00 77 108/57 L 11/17/18 23:46 74 98/49 L Pulse Ox 11/18/18 11:15 93 11/18/18 08:00 97 11/18/18 07:48 93 11/18/18 05:41 94 11/18/18 04:01 91 11/18/18 04:00 11/18/18 03:46 92 11/18/18 03:45 91 11/18/18 03:30 90 11/18/18 03:15 91 11/18/18 03:01 98 11/18/18 03:00 11/18/18 02:45 98 11/18/18 02:31 96 11/18/18 02:23 98 11/18/18 02:16 96 11/18/18 02:01 98 11/18/18 02:00 97 11/18/18 01:47 98 11/18/18 01:30 95 11/18/18 01:15 95 11/18/18 01:00 95 11/18/18 00:46 97 11/18/18 00:31 98 11/18/18 00:16 98 11/18/18 00:01 92 11/18/18 00:00 92 11/17/18 23:46 90
[2018-11-18] MEDS: NOREPINEPHRINE BIT INJ 8 MG in DEXTROSE 5% 500 ML IV SCH (11:59)
[2018-11-18] MEDS: Heparin Adult STANDARD Wt-Based Dextrose 5% 25,000 units/500 mL IV SCH (12:03)
[2018-11-18] MEDS ORDERED: ALTEPLASE, RECOMBINANT 1 MG/ML 2ML VIAL IV ONE ×2 (12:56→13:00)
[2018-11-18] MEDS ORDERED: METOPROLOL TARTRATE 1 MG/ML VIAL IV STA (13:01)
[2018-11-18] MEDS: METOPROLOL TARTRATE 1 MG/ML VIAL IV PRN ×6 (15:18→23:04)
[2018-11-18] MEDS ORDERED: DIGOXIN 250 MCG in SYRINGE 9 ML IV ONE ×2 (16:00→23:30)
--- NOTE | 2018-11-18 22:29 | XRay Report ---
XR chest 1V portable HISTORY: 83 years-old Female increased o2 req, diminished BS acute proximal to COMPARISON: Chest radiograph 11/17/2018 TECHNIQUE: Portable AP view of the chest FINDINGS: Endotracheal tube overlies the midline, 3.3 cm superior to the ashia. Enteric tube courses below the diaphragm. Stable positioning of right and left internal jugular central venous catheters. Cardiomed iastinal and hilar silhouettes are unchanged. Prior median sternotomy with cardiac valvular prosthesi s. No pneumothorax. Improved aeration of the left lung base with decreased size of the left pleural e ffusion. Unchanged right pleural effusion with right lung base opacities. Degenerative changes of the shoulders and spine. IMPRESSION: 1. Stable positioning of life-support lines and tubes. 2. Decreased size of the left pleural effusion with improved aeration of the left lung base. 3. Unchanged right pleural effusion with right lung base opacities. 4. Cardiomegaly. The above report was generated using voice recognition software. It may contain grammatical, syntax o r spelling errors. Electronically signed by: Den Estrada M.D. 11/18/2018 10:28 PM
[2018-11-18] MEDS: ROSUVASTATIN CALCIUM 20 MG TAB PO SCH (22:44)
[2018-11-18] MEDS ORDERED: DIGOXIN 500 MCG/2 ML AMP IV STA (23:22)
[2018-11-19] MEDS ORDERED: dilTIAZem HCl 5 MG/ML 5 ML VIAL IV ONE (00:18)
[2018-11-19] MEDS ORDERED: MIDAZOLAM HCL 1 MG/ML 2ML VIAL IV STA (00:42)
[2018-11-19] MEDS ORDERED: fentaNYL citrate 100 MCG/2 ML VIAL IV STA (00:42)
[2018-11-19] MEDS ORDERED: dilTIAZem HCl 5 MG/ML 5 ML VIAL IV STA (00:42)
--- NOTE | 2018-11-19 00:42 | Hospitalist Progress Note ---
Date of Service November 19, 2018 Subjective Patient in atrial flutter, rate 129 - 140, blood pressure maintained. Gen: intubated, sedated, restless Skin: thin, edematous, weeping lesions, abdominal wound with areas of poor closure, no active bleeding/drainage HEENT: PERRL, ETT in place Heart: +S1/S2, regular, tachycardic Lungs: Coarse BS bilaterally, diminished in bases Abd: +BS, soft, NT/ND Ext: 3+ edema Will send off labs. Plan: -Digoxin load - 250mcg IV now and 125mcg IV q 6 hours x 2 doses -Cardizem 10mg IV x 1 -Fentanyl 100mcg IV -Versed 2mg IV -Synchronized cardioversion performed at 200J with return to sinus rhythm, 81bpm with frequent ectopy Will continue to monitor Results & Data Vital Signs (Past 12 Hours) Vital Signs Temp Pulse Pulse Resp BP BP Pulse Ox 11/18/18 23:38 129 H 11/18/18 23:04 126 H 102/78 11/18/18 22:58 127 H 120/75 11/18/18 22:53 130 H 104/62 11/18/18 21:51 16 11/18/18 21:37 16 11/18/18 20:30 81 16 97 11/18/18 18:31 99 H 143/80 H 98 11/18/18 18:30 109 H 87 L 11/18/18 18:17 96 H 141/96 H 90 11/18/18 18:04 83 127/71 95 11/18/18 18:01 82 123/71 97 11/18/18 18:00 36.6 C 97 H 11/18/18 17:57 36.9 C 87 87 127/71 127/71 11/18/18 17:46 101 H 152/99 H 98 11/18/18 17:40 103 H 130/106 H 11/18/18 17:32 101 H 130/106 H 97 11/18/18 17:30 99 H 94 11/18/18 17:20 93 H 106/67 11/18/18 17:16 81 106/67 98 11/18/18 17:11 93 H 16 98 11/18/18 17:00 100 H 119/94 98 11/18/18 16:47 102 H 147/81 H 98 11/18/18 16:40 95 H 140/79 11/18/18 16:39 89 11/18/18 16:33 109 H 87 L 11/18/18 16:32 100 H 140/79 98 11/18/18 16:30 36.9 C 101 H 94 11/18/18 16:20 98 H 148/89 H 11/18/18 16:16 94 H 148/89 H 95 11/18/18 16:05 108 H 181/134 H 96 11/18/18 16:00 36.7 C 135 H 101 H 20 113/83 140/79 91 11/18/18 15:40 131 H 122/69 11/18/18 15:32 148 H 129/77 96 11/18/18 15:31 139 H 113/83 92 11/18/18 15:30 139 H 11/18/18 15:25 137 H 107/85 11/18/18 15:20 153 H 143/85 H 11/18/18 15:18 153 H 139/90 11/18/18 15:01 87 143/85 H 99 11/18/18 15:00 84 137/65 99 11/18/18 14:45 73 137/65 11/18/18 14:31 81 137/65 95 11/18/18 14:30 88 11/18/18 14:22 36.8 C 96 H 20 140/82 96 11/18/18 14:20 969 H 148/82 H 11/18/18 14:08 36.6 C 84 22 148/82 H 94 11/18/18 14:02 91 H 148/82 H 91 11/18/18 14:00 87 108/58 L 98 11/18/18 13:54 90 108/58 L 11/18/18 13:48 36.9 C 73 73 161/68 H 11/18/18 13:42 70 16 93 11/18/18 13:31 67 108/58 L 88 L 11/18/18 13:30 72 11/18/18 13:01 76 75/36 L 96 11/18/18 13:00 72
[2018-11-19] MEDS: PIPERACILLIN/TAZOBACTAM 3.375 GM in DEXTROSE 5% 100 ML IV SCH ×2 (01:42→14:56)
[2018-11-19] MEDS: HYDROCORTISONE SOD 50 MG in SYRINGE 0 ML IV SCH ×2 (01:45→08:52)
[2018-11-19] MEDS: MIDAZOLAM HCL 1 MG/ML 2ML VIAL IV PRN ×3 (03:02→07:01)
[2018-11-19] MEDS: fentaNYL citrate 100 MCG/2 ML VIAL IV PRN ×2 (03:37→06:07)
[2018-11-19 05:14] LABS: Basophils # (auto) 0.04 K/uL (0-0.2); Basophils % (auto) 0.2 %; Hematocrit (blood only) 30.7 % (37-47); Hemoglobin 10.5 g/dL (12.0-16.0); Immature Granulocytes # (auto) 0.96 K/uL (0.00-0.02); Immature Granulocytes % (auto) 4.4 %; Lymphocytes # (auto) 1.05 K/uL (1.2-3.4); Lymphocytes % (auto) 4.9 %; Mean Corpuscular Hgb Conc 34.2 g/dL (32-36); Mean Corpuscular Volume 84.8 fL (80-100); Mean Platelet Volume 10.1 fL (7.4-10.4); Monocytes # (auto) 2.17 K/uL (0.11-0.59); Neutrophils # (auto) 17.38 K/uL (1.4-6.5); Neutrophils % (auto) 80.5 %; Nucleated RBC # (auto) 0.05 K/uL (0-0); Nucleated RBC % (auto) 0.2 %; Platelet Count 201 K/uL (130-400); RDW Coefficient of Variation 16.2 % (11.5-14.5); RDW Standard Deviation 50.9 fL (36.4-46.3); Red Blood Count 3.62 M/uL (4.2-5.4)
[2018-11-19 05:27] LABS: Partial Thromboplastin Ratio 1.8
[2018-11-19 05:28] LABS: Albumin Level 1.9 gm/dl (3.4-5.0); BUN Creatinine Ratio 9.8 (10-20); Calcium 8.5 mg/dl (8.5-10.1); Creatinine Clr Calc Pharmacy 14.6 ml/min; Est GFR (African American) 12.8; Est GFR (Non-African American) 11.1; Potassium 4.3 mmol/L (3.5-5.1)
[2018-11-19] MEDS ORDERED: DIGOXIN 500 MCG/2 ML AMP IV SCH (05:30)
[2018-11-19 06:08] LABS: iSTAT Arterial Blood Gas HCO3 21 meg/L (19-24); iSTAT Arterial Blood Gas pCO2 32 mmHg (35-46); iSTAT Arterial Blood Gas pH 7.42 (7.35-7.45); iSTAT Carbon Dioxide 21 mEq/l (24-31); iSTAT FiO2 100 %; iSTAT Site L Radial
[2018-11-19] MEDS: DIGOXIN 125 MCG in SYRINGE 9.5 ML IV SCH ×2 (06:33→11:58)
[2018-11-19 06:34] LABS: Partial Thromboplastin Time 47.8 Seconds (21.0-31.0)
--- NOTE | 2018-11-19 06:39 | Progress Note ---
Date of Service November 19, 2018 Assessment & Plan (1) Small bowel infarction: multisystem organ failure- req high Fi02, recurrent rapid afib w/ hypotension effecting ability undergo hemodialysis urine output seems to be less- creat improved this am- 3.62 supportive care continues Subjective afeb, on pressor support- afib decr Bp last pm req high Fi02 with hypoxia last pm decr ur output, not tolerating hemodialysis well- signif edema Physical Exam Physical Exam: on vent w/ pressors running, HR 70s at present diffuse edema, urine light yellow abd - min distention, ileost w/ some output, incision intact Results & Data Vital Signs (Past 12 Hours) Vital Signs Temp Pulse Resp BP Pulse Ox 11/19/18 06:19 78 18 100 11/19/18 02:30 56 L 11/19/18 02:22 65 16 100 11/19/18 02:16 66 106/56 L 100 11/19/18 02:01 60 82/47 L 100 11/19/18 02:00 59 L 11/19/18 01:46 70 85/47 L 100 11/19/18 01:31 64 79/40 L 100 11/19/18 01:30 63 11/19/18 01:14 70 90/49 L 100 11/19/18 01:01 74 90/49 L 99 11/19/18 01:00 75 11/19/18 00:36 82 116/56 L 89 L 11/19/18 00:31 123 H 116/86 81 L 11/19/18 00:30 123 H 81 L 11/19/18 00:29 122 H 140/99 80 L 11/19/18 00:25 123 H 149/80 H 75 L 11/19/18 00:17 131 H 130/92 84 L 11/19/18 00:13 143 H 83 L 11/19/18 00:08 140 H 127/106 H 87 L 11/19/18 00:00 36.7 C 136 H 85 L 11/18/18 23:42 129 H 113/70 94 11/18/18 23:38 129 H 11/18/18 23:31 129 H 98 11/18/18 23:30 128 H 113/77 98 11/18/18 23:04 126 H 102/78 11/18/18 23:00 126 H 102/78 93 11/18/18 22:58 127 H 120/75 11/18/18 22:57 127 H 120/75 92 11/18/18 22:53 130 H 104/62 11/18/18 22:50 128 H 16 91 11/18/18 22:31 66 104/62 100 11/18/18 22:30 85 11/18/18 22:01 79 118/62 99 11/18/18 22:00 78 11/18/18 21:51 94 H 16 133/85 96 11/18/18 21:37 16 11/18/18 21:31 109 H 137/100 11/18/18 21:30 103 H 11/18/18 21:26 104 H 148/88 H 91 11/18/18 21:00 106 H 83 L 11/18/18 20:31 78 119/83 98 11/18/18 20:30 77 16 95 11/18/18 20:01 78 95 11/18/18 20:00 36.8 C 71 112/61 98 11/18/18 19:31 71 108/53 L 94 11/18/18 19:30 96 H 11/18/18 19:01 96 H 145/79 H 98 11/18/18 19:00 101 H 11/18/18 18:46 96 H 144/94 H 97 11/18/18 18:32 106 H 95
[2018-11-19] MEDS ORDERED: SODIUM CHLORIDE 0.9% 1000ML 1,000 ML IV PRN (07:00)
--- NOTE | 2018-11-19 07:15 | XRay Report ---
SINGLE VIEW CHEST CLINICAL HISTORY: Hypoxia. Respiratory failure. FINDINGS: An AP, portable, upright chest radiograph is compared to study dated 11/18/2018. The examinat ion is degraded by portable technique and patient rotation. Endotracheal tube, an enteric tube, and a right internal jugular central venous catheter are unchanged in position. The patient is status post midline sternotomy and cardiac valve surgery. The heart is enlarged and there is atherosclerotic tresa cification of the thoracic aorta. There is pulmonary vascular congestion. And moderate interstitial e saleem. There are right larger left pleural effusions with bibasilar consolidation. No pneumothorax is seen. The skeletal structures are osteopenic. The bony thorax is grossly intact. IMPRESSION: 1. Stable lines and tubes. 2. Cardiomegaly with evidence of congestive failure. 3. Right larger than left pleural effusions with bibasilar consolidation. Electronically signed by: Efrne Taylor M.D. 11/19/2018 7:14 AM
[2018-11-19 07:19] LABS: Phosphorus 6.8 mg/dl (2.5-4.9)
[2018-11-19] MEDS: INSULIN REGULAR 250 UNITS in SODIUM CHLORIDE 0.9% 247.5 ML IV SCH ×2 (07:30→09:09)
[2018-11-19] MEDS: INSULIN ASPART 100 UNITS/ML 3 ML PEN SC SCH ×2 (07:31→11:58)
[2018-11-19] MEDS ORDERED: PROPOFOL 1,000 MG/100 ML VIAL IV SCH (08:13)
[2018-11-19] MEDS: THIAMINE HCL 100 MG in SYRINGE 9 ML IV SCH (08:52)
[2018-11-19] MEDS: CLOPIDOGREL BISULFATE 75 MG TAB PO SCH (08:52)
[2018-11-19] MEDS: FAMOTIDINE 20 MG in SYRINGE 3 ML IV SCH (08:52)
--- NOTE | 2018-11-19 10:10 | Palliative Care Consultation ---
Date of Consultation November 19, 2018 Assessment & Plan (1) Palliative care encounter: This is a 83 year old unfortunate female who has experienced an unfortunate series of events of the past few weeks. The patient has colorectal adenocarcinoma s/p hemicolectomy ('08) and a partial colectomy performed on 11/13/18 s/p small bowel infarct, mucus fistular and ileostomy. Over this hospitalization, she has cycled through acute hypoxemic respiratory failure for which she was ventilator dependent, sepsis associated hypotension requiring inotropic support (Levophed/Neosynephrine), Stage III CKD requiring HD and (3) cardioversions for AF with RVR on 11/16/18 and 11/17/18. Additional PMH includes CVA that occured post-op s/p AVR, PMR, LALA, CAD s/p CABG x 3 (2015), DM2. Palliative Care was consulted to discuss goals of care. -I met with patient who was intubated and sedated, patient , daughter (January), Disposal Operator Dr. Chase, Nephrology Dr. Salas, GRADUATE INTERN Den, and RIVETING MACHINE OPERATOR AUTOMATIC student Tiffany at the bedside. -The patient was increasingly restless attempting to self-extubate and talk. Sedation was increased and tolerated. Pt remains pressor dependent. -Lengthy conversation was held regarding ultimate long-term goal and unlikely instance of the patient returning to baseline functional status due to extensive illness and hospitalziation. -The patient has received hemodialysis; however, did not tolerate for an extended amount of time due to hypotension and inotropic support requirement. We did discuss CRRT and transfer to a tertiary care setting with the family; however, with the underlying disease process, and little meaningful benefit, her quality of life is poor, at best. -We discussed code status and DNR status was established and the order was placed. The family discussed and decided to de-escalate care and focus fully on comfort measures, including extubation and discontinuing all medications that do not focus on comfort, including terminal extubation, inotropic support, blood draws, cardiac and all hemodynamic monitoring. -We discussed terminal extubation and what that entails and all family agreed that she would not appreciate life-sustaining treatment or additional heroic measures being taken. -Additional family, including another daughter, son-in-laws (2) were all updated and questions answered. Additional members of the family, including grand- children eventually came to the bedside. -A bereavement tray was provided for the family. -Orders placed for Morphine 2mg IV Q15 minutes PRN with a low threshold for Morphine gtt, Atropine gtts 4mg SL Q2 PRN secretions, Ativan 0.5mg Q2 PRN agitation -Sedation was discontinued and patient was extubated. Patient was agitated post- extubation, requiring a Morphine gtt which is being titrated for comfort per nursing protocol. -PPS: 10% (2) Atrial fibrillation status post cardioversion: (3) Sepsis associated hypotension: (4) Acute hypoxemic respiratory failure: (5) Stage III chronic kidney disease: (6) History of aortic valve replacement: (7) History of CVA (cerebrovascular accident): (8) Recurrent adenocarcinoma of colorectal region: Supervising Physician Co-Signing Physician Notes Chart reviewed, collaborated with LUIS Powell seen and examined- multiple family at bedside. PE: Patient intubated and sedated HEENT: ET tube in place Respiratory: On vent CV: Tachycardic Neuro: Sedated, unresponsive, calm Plan is for compassionate extubation-agree with above note, assessment and plan as per LUIS Powell Will continue to follow and provide support to patient's family. History of Present Illness Reason for Consultation: Goals of care Requesting Physician: Dr. Chase Attending Physician: Ruperto Joseph DO, CASS History of Present Illness This is a 83 year old unfortunate female who has experienced an unfortunate series of events of the past few weeks. The patient has colorectal adenocarcinoma s/p hemicolectomy ('08) and a partial colectomy performed on 11/13/18 s/p small bowel infarct, mucus fistular and ileostomy. During this hospitalization, she has cycled through acute hypoxemic respiratory failure for which she was ventilator dependent, sepsis associated hypotension requiring inotropic support (Levophed/Neosynephrine), Stage III CKD requiring HD and (3) cardioversions for AF with RVR on 11/16/18 and 11/17/18. Additional PMH includes CVA that occurred post-op s/p AVR, PMR, LALA, CAD s/p CABG x 3 (2016), DM2. Palliative Care was consulted to discuss goals of care. Please see A/P for further details. Thank you kindly for involving Palliative Care with this unfortunate patient. Allergies Allergy/AdvReac Type Severity Reaction Status Date / Time azithromycin AdvReac Intermediate Diarrhea Verified 11/07/18 07:12 cefadroxil AdvReac Intermediate Diarrhea Verified 11/07/18 07:12 clindamycin AdvReac Intermediate Diarrhea Verified 11/07/18 07:12 doxycycline AdvReac Intermediate Diarrhea Verified 11/07/18 07:12 levofloxacin AdvReac Intermediate Diarrhea Verified 11/07/18 07:12 metronidazole AdvReac Intermediate Diarrhea Verified 11/07/18 07:12 sulfamethoxazole AdvReac Intermediate Diarrhea Verified 11/07/18 07:12 [From Bactrim] trimethoprim [From Bactrim] AdvReac Intermediate Diarrhea Verified 11/07/18 07:12 amoxicillin AdvReac Mild diarrhea Verified 11/07/18 07:12 clavulanic acid AdvReac Mild diarrhea Verified 11/07/18 07:12 metformin AdvReac Mild Diarrhea Verified 11/07/18 07:12 sitagliptin AdvReac Mild diarreha Verified 11/07/18 07:12 Home Medications Home Medications Medication Instructions Recorded Confirmed Type Calcium 600 + D(3) 1 tab PO BID 02/15/18 11/07/18 History Novolog Flexpen U-100 Insulin 5 unit SUBCUT 1700 02/15/18 11/07/18 History Tresiba FlexTouch U-100 15 unit SUBCUT HS 02/15/18 11/07/18 History acetaminophen [Tylenol Extra 1,000 mg PO TID PRN 02/15/18 11/07/18 History Strength] cholecalciferol (vitamin D3) 2,000 unit PO BID 02/15/18 11/07/18 History [Vitamin D3] clopidogrel [Plavix] 75 mg PO HS 02/15/18 11/07/18 History diclofenac sodium [Voltaren] 2 g TOPICAL QID PRN 02/15/18 11/07/18 History duloxetine [Cymbalta] 30 mg PO 1200 02/15/18 11/07/18 History gabapentin 100 mg PO TID 02/15/18 11/07/18 History isosorbide mononitrate 30 mg PO QAM 02/15/18 11/07/18 History losartan 25 mg PO QAM 02/15/18 11/07/18 History metoprolol succinate [Toprol XL] 100 mg PO QPM 02/15/18 11/07/18 History nitroglycerin [Nitrostat] 0.4 mg SUBLINGUAL DIRECTED PRN 02/15/18 11/07/18 History prednisone 5 mg PO QAM 02/15/18 11/07/18 History rosuvastatin [Crestor] 40 mg PO QPM 02/15/18 11/07/18 History zolpidem [Ambien] 5 mg PO HS PRN 02/15/18 11/07/18 History loratadine 10 mg PO DAILY PRN 10/12/18 11/07/18 History triamcinolone acetonide [Nasacort] 1 spray INTRANASAL DAILY PRN 10/12/18 0 11/07/18 History pantoprazole [Protonix] 40 mg PO DAILY 11/07/18 11/07/18 History oxycodone-acetaminophen [Percocet] 1 - 2 tab PO Q4H PRN #15 tab MDD 6 11/09/18 Rx Patient History Medical History CAD (coronary artery disease) (Chronic) Severe, s/p CABG x 3 with AVR 03/2016, complicated by post-op CVA. Hypertension (Chronic) GERD (gastroesophageal reflux disease) Obstructive sleep apnea of adult cpap PMR (polymyalgia rheumatica) Prednisone daily Anxiety (Acute) Orthostatic hypotension (Acute) H/O malignant neoplasm of colon (Chronic) 2006--sx--"took 17 inches of colon, took appendix, took ovaries/fallopian tubes at same time" H/O: CVA (cerebrovascular accident) (Chronic) After CABG/AVR, 2015; residual weakness on right side. 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 [place] History of bilateral cataract extraction History of bilateral tubal ligation History of cholecystectomy History of colectomy 2006 History of colonoscopy History of dilatation and curettage History of esophagogastroduodenoscopy (EGD) History of foot surgery right foot--no hardware in place History of open reduction and internal fixation (ORIF) procedure right hip hardware in place History of tonsillectomy and adenoidectomy History of tooth extraction partial upper denture S/P CABG x [address] [facility] [place] Status post incision and drainage sebaceous cyst Family History Brother Family history of diabetes mellitus Grandfather (Maternal) Family history of diabetes mellitus Grandmother (Maternal) Family hx of colon cancer Other No family history of adverse response to anesthesia Social History Preferred Language: Syrian Communication Ability: Effective Beliefs That Will Affect Care: None marital status: Current Living Situation: Spouse Feels Safe at Home: Yes Smoking Status: Never smoker Cigarettes Per Day: 0 Second Hand Exposure: Yes ( smoked) Hx Alcohol Use: No Hx Substance Use: No Review of Systems Review of Systems: Unobtainable due to endotracheal tube Physical Exam Physical Exam: Constitutional: + ill appearing. intubated, sedated Eyes: PERRLA, conjunctivae normal, anicteric sclerae ENMT: external ear and nose normal, oropharynx normal Neck: trachea midline, no thyromegaly No JVD, no carotid bruits Respiratory: Coarse throughout all lung perrin Cardiovascular: RRR, Anasarca. LIJ TLC and R SC TLC (-) M/G/R Gastrointestinal: Large, soft, NT/ND, Ax4 bowel sounds. OGT intact. Ileostomy draining stool : indwelling watkins catheter Musculoskeletal: Pt initially PROM but unable to follow commands Skin: no petechia, no rash. Evidence of ecchymosis. Neurologic: Sedated and does not follow commands Results & Data Vital Signs (Past 12 Hours) Vital Signs Temp Pulse Resp BP Pulse Ox 11/19/18 07:33 81 18 98 11/19/18 06:19 78 18 100 11/19/18 02:30 56 L 11/19/18 02:22 65 16 100 11/19/18 02:16 66 106/56 L 100 11/19/18 02:01 60 82/47 L 100 11/19/18 02:00 59 L 11/19/18 01:46 70 85/47 L 100 11/19/18 01:31 64 79/40 L 100 11/19/18 01:30 63 11/19/18 01:14 70 90/49 L 100 11/19/18 01:01 74 90/49 L 99 11/19/18 01:00 75 11/19/18 00:36 82 116/56 L 89 L 11/19/18 00:31 123 H 116/86 81 L 11/19/18 00:30 123 H 81 L 11/19/18 00:29 122 H 140/99 80 L 11/19/18 00:25 123 H 149/80 H 75 L 11/19/18 00:17 131 H 130/92 84 L 11/19/18 00:13 143 H 83 L 11/19/18 00:08 140 H 127/106 H 87 L 11/19/18 00:00 36.7 C 136 H 85 L 11/18/18 23:42 129 H 113/70 94 11/18/18 23:38 129 H 11/18/18 23:31 129 H 98 11/18/18 23:30 128 H 113/77 98 11/18/18 23:04 126 H 102/78 11/18/18 23:00 126 H 102/78 93 11/18/18 22:58 127 H 120/75 11/18/18 22:57 127 H 120/75 92 11/18/18 22:53 130 H 104/62 11/18/18 22:50 128 H 16 91 11/18/18 22:31 66 104/62 100 11/18/18 22:30 85
--- NOTE | 2018-11-19 10:39 | Nephrology Progress Note ---
Date of Service November 19, 2018 Assessment & Plan (1) Acute renal failure: -- ATN, anuric. -- LIJ HD catheter placed by Dr. Pate 11/16 -- First HD treatment 11/16 complicated by rapid atrial fibrillation and hypotension, second treatmentomplicated by rapid SVT, had 4 hours treatment yesterday for the 1st time and tolerated well. She remained anuric but electrolyte acceptable, continues to be volume overloaded. -- discussed in detail with the patient's family, scrap hooker in palliative care in room that Hernandez was for her meaningful recovery is previously and overall prognosis guarded. Transferring her to another facility for CRRT would not provide any meaningful benefit. Family is currently in the process of making a decision, if family decides eventual comfort care, will sign off and no further dialysis however if family would like to continue current level of care, will schedule for dialysis this afternoon to see whether she tolerates. Will follow (2) Stage III chronic kidney disease: -- Baseline creatinine 1.0 (3) Small bowel infarction: -- s/p exploratory lap w/ partial colectomy and ileostomy 11/13 (4) History of aortic valve replacement: (5) PMR (polymyalgia rheumatica): (6) S/P admission to ICU (intensive care unit): -- 30 min critical care time provided today Diya Fitzpatrick was seen and examined with her family at bedside. She was still intubated however awake and was restless, trying to rule out the ET tube. Blood pressure remained low, on pressor. Remained anuric, electrolyte relatively stable. Review of Systems Review of Systems: Detailed review of system was not possible due to patient's condition. Physical Exam Constitutional: Intubated but awake and restless. Respiratory: Auscultation: + crackles Cardiovascular: Heart Sounds: normal S1 and normal S2 Extremities: + edema Neurologic: Awake, but did not communicate in meaningful way, restless. Results & Data Vital Signs (Past 12 Hours) Vital Signs Temp Pulse Resp BP Pulse Ox 11/19/18 07:33 81 18 98 11/19/18 06:19 78 18 100 11/19/18 02:30 56 L 11/19/18 02:22 65 16 100 11/19/18 02:16 66 106/56 L 100 11/19/18 02:01 60 82/47 L 100 11/19/18 02:00 59 L 11/19/18 01:46 70 85/47 L 100 11/19/18 01:31 64 79/40 L 100 11/19/18 01:30 63 11/19/18 01:14 70 90/49 L 100 11/19/18 01:01 74 90/49 L 99 11/19/18 01:00 75 11/19/18 00:36 82 116/56 L 89 L 11/19/18 00:31 123 H 116/86 81 L 11/19/18 00:30 123 H 81 L 11/19/18 00:29 122 H 140/99 80 L 11/19/18 00:25 123 H 149/80 H 75 L 11/19/18 00:17 131 H 130/92 84 L 11/19/18 00:13 143 H 83 L 11/19/18 00:08 140 H 127/106 H 87 L 11/19/18 00:00 36.7 C 136 H 85 L 11/18/18 23:42 129 H 113/70 94 11/18/18 23:38 129 H 11/18/18 23:31 129 H 98 11/18/18 23:30 128 H 113/77 98 11/18/18 23:04 126 H 102/78 11/18/18 23:00 126 H 102/78 93 11/18/18 22:58 127 H 120/75 11/18/18 22:57 127 H 120/75 92 11/18/18 22:53 130 H 104/62 11/18/18 22:50 128 H 16 91
--- NOTE | 2018-11-19 11:11 | Critical Care Progress Note ---
Date of Service November 19, 2018 Assessment & Plan (1) Acute hypoxemic respiratory failure: Remains ventilator dependant, critically ill, pressor dependant. Prognosis is poor with multisystem organ failure in the setting of recurrent colon carcinoma. Family has requested DNR and is considering comfort measures. (2) Sepsis associated hypotension: Continue pressors, antibiotics (3) Small bowel infarction: perioperative, status post bowel resection (4) Stage III chronic kidney disease: With SHAZIA, continues to be dialysis dependent but tolerating hemodialysis poorly due to hypotension (5) History of CVA (cerebrovascular accident): on plavix (6) History of colon cancer: Recurrent, s/p surgery (7) Atrial fibrillation with RVR: Currently rate controlled Subjective Patient remains intubated, sedated, and pressor dependent. We have stopped the phenylephrine and continuing the Levophed. Nephrology feels there is no meaningful benefit to transfer to another facility for CRRT. Family meeting was held in the patient's room with palliative care, nephrology, relief man and family. Patient is now DNR and family is considering further de-escalation of care and comfort measures. She continues on heparin, propofol, and insulin drip. Review of Systems Review of Systems: Unobtainable due to endotracheal tube Physical Exam Constitutional: + ill appearing Appears critically ill, intubated, sedated Eyes: PERRL, conjunctivae normal, anicteric sclerae ENMT: external ear and nose normal, oropharynx normal Neck: trachea midline, no thyromegaly No JVD, no carotid bruits Respiratory: Distant breath sounds, no wheezing rales or rhonchi Cardiovascular: Rate/Rhythm: regular rate and regular rhythm No murmurs, 3+ anasarca present Chest (Breasts): Chest: normal inspection of chest Gastrointestinal (Abdomen): Soft, obese, no tenderness bowel sounds hypoactive Musculoskeletal: No cyanosis or clubbing, 3-4+ edema throughout Skin: Multiple purpura, no petechia, no rash Neurologic: Sedated Results & Data Vital Signs (Past 12 Hours) Vital Signs Temp Pulse Resp BP Pulse Ox 11/19/18 07:33 81 18 98 11/19/18 06:19 78 18 100 11/19/18 02:30 56 L 11/19/18 02:22 65 16 100 11/19/18 02:16 66 106/56 L 100 11/19/18 02:01 60 82/47 L 100 11/19/18 02:00 59 L 11/19/18 01:46 70 85/47 L 100 11/19/18 01:31 64 79/40 L 100 11/19/18 01:30 63 11/19/18 01:14 70 90/49 L 100 11/19/18 01:01 74 90/49 L 99 11/19/18 01:00 75 11/19/18 00:36 82 116/56 L 89 L 11/19/18 00:31 123 H 116/86 81 L 11/19/18 00:30 123 H 81 L 11/19/18 00:29 122 H 140/99 80 L 11/19/18 00:25 123 H 149/80 H 75 L 11/19/18 00:17 131 H 130/92 84 L 11/19/18 00:13 143 H 83 L 11/19/18 00:08 140 H 127/106 H 87 L 11/19/18 00:00 36.7 C 136 H 85 L 11/18/18 23:42 129 H 113/70 94 11/18/18 23:38 129 H 11/18/18 23:31 129 H 98 11/18/18 23:30 128 H 113/77 98 11/18/18 23:04 126 H 102/78 Laboratory Results 11/19/18 11/19/18 11/19/18 Range/Units 05:53 04:54 04:54 WBC 21.60 H (4.8-10.8) K/uL RBC 3.62 L (4.2-5.4) M/uL Hgb 10.5 L (12.0-16.0) g/dL Hct 30.7 L (37-47) % MCV 84.8 (80-100) fL MCH 29.0 (25-34) pg MCHC 34.2 (32-36) g/dL RDW Std Deviation 50.9 H (36.4-46.3) fL RDW Coeff of David 16.2 H (11.5-14.5) % Plt Count 201 (130-400) K/uL MPV 10.1 (7.4-10.4) fL Immature Gran % (Auto) 4.4 % Neut % (Auto) 80.5 % Lymph % (Auto) 4.9 % Stevens % (Auto) 10.0 % Eos % (Auto) 0.0 % Baso % (Auto) 0.2 % Immature Gran # (Auto) 0.96 H (0.00-0.02) K/uL Neut # (Auto) 17.38 H (1.4-6.5) K/uL Lymph # (Auto) 1.05 L (1.2-3.4) K/uL Stevens # (Auto) 2.17 H (0.11-0.59) K/uL Eos # (Auto) 0.00 (0-0.5) K/uL Baso # (Auto) 0.04 (0-0.2) K/uL Absolute Nucleated RBC 0.05 H (0-0) K/uL Nucleated RBC % (auto) 0.2 % APTT 47.8 H* (21.0-31.0) Seconds PTT Ratio 1.8 Sample Site L Radial POC pH 7.42 (7.35-7.45) POC pCO2 32 L (35-46) mmHg POC pO2 256 H (80-95) mmHg POC HCO3 21 (19-24) mary/L POC Total CO2 21 L (24-31) mEq/l POC Base Excess -4.0 (-9-1.8) mary/L POC ABG O2 Sat 100.0 H (90-95) % Sree Test NA O2 Delivery Device Ventilator POC O2 Rate 16 Minute Ventilation 8.3 POC FiO2 100 % Tidal Volume 450 PEEP 7 Sodium (136-145) mmol/L Potassium (3.5-5.1) mmol/L Chloride (98-107) mmol/L Carbon Dioxide (21-32) mmol/L Anion Gap (3-11) BUN (7-18) mg/dl Creatinine (0.6-1.2) mg/dl Est Cr Clr Drug Dosing ml/min Est GFR ( Amer) Est GFR (Non-Af Amer) BUN/Creatinine Ratio (10-20) Glucose (70-99) mg/dl POC Glucose (other) (70-99) mg/dl Calcium (8.5-10.1) mg/dl Phosphorus (2.5-4.9) mg/dl Albumin (3.4-5.0) gm/dl Blood Type Antibody Screen Crossmatch 11/19/18 11/18/1819 Range/Units 04:54 22:03 19:45 WBC (4.8-10.8) K/uL RBC (4.2-5.4) M/uL Hgb (12.0-16.0) g/dL Hct (37-47) % MCV (80-100) fL MCH (25-34) pg MCHC (32-36) g/dL RDW Std Deviation (36.4-46.3) fL RDW Coeff of David (11.5-14.5) % Plt Count (130-400) K/uL MPV (7.4-10.4) fL Immature Gran % (Auto) % Neut % (Auto) % Lymph % (Auto) % Stevens % (Auto) % Eos % (Auto) % Baso % (Auto) % Immature Gran # (Auto) (0.00-0.02) K/uL Neut # (Auto) (1.4-6.5) K/uL Lymph # (Auto) (1.2-3.4) K/uL Stevens # (Auto) (0.11-0.59) K/uL Eos # (Auto) (0-0.5) K/uL Baso # (Auto) (0-0.2) K/uL Absolute Nucleated RBC (0-0) K/uL Nucleated RBC % (auto) % APTT (21.0-31.0) Seconds PTT Ratio Sample Site POC pH (7.35-7.45) POC pCO2 (35-46) mmHg POC pO2 (80-95) mmHg POC HCO3 (19-24) mary/L POC Total CO2 (24-31) mEq/l POC Base Excess (-9-1.8) mary/L POC ABG O2 Sat (90-95) % Sree Test O2 Delivery Device POC O2 Rate Minute Ventilation POC FiO2 % Tidal Volume PEEP Sodium 131 L (136-145) mmol/L Potassium 4.3 (3.5-5.1) mmol/L Chloride 97 L (98-107) mmol/L Carbon Dioxide 23 (21-32) mmol/L Anion Gap 11.0 (3-11) BUN 35 H (7-18) mg/dl Creatinine 3.62 H D (0.6-1.2) mg/dl Est Cr Clr Drug Dosing 14.6 ml/min Est GFR ( Amer) 12.8 Est GFR (Non-Af Amer) 11.1 BUN/Creatinine Ratio 9.8 L (10-20) Glucose 166 H (70-99) mg/dl POC Glucose (other) 159 H 132 H (70-99) mg/dl Calcium 8.5 (8.5-10.1) mg/dl Phosphorus 6.8 H D (2.5-4.9) mg/dl Albumin 1.9 L (3.4-5.0) gm/dl Blood Type Antibody Screen Crossmatch 11/18/18 Range/Units 10:06 WBC (4.8-10.8) K/uL RBC (4.2-5.4) M/uL Hgb (12.0-16.0) g/dL Hct (37-47) % MCV (80-100) fL MCH (25-34) pg MCHC (32-36) g/dL RDW Std Deviation (36.4-46.3) fL RDW Coeff of David (11.5-14.5) % Plt Count (130-400) K/uL MPV (7.4-10.4) fL Immature Gran % (Auto) % Neut % (Auto) % Lymph % (Auto) % Stevens % (Auto) % Eos % (Auto) % Baso % (Auto) % Immature Gran # (Auto) (0.00-0.02) K/uL Neut # (Auto) (1.4-6.5) K/uL Lymph # (Auto) (1.2-3.4) K/uL Stevens # (Auto) (0.11-0.59) K/uL Eos # (Auto) (0-0.5) K/uL Baso # (Auto) (0-0.2) K/uL Absolute Nucleated RBC (0-0) K/uL Nucleated RBC % (auto) % APTT (21.0-31.0) Seconds PTT Ratio Sample Site POC pH (7.35-7.45) POC pCO2 (35-46) mmHg POC pO2 (80-95) mmHg POC HCO3 (19-24) mary/L POC Total CO2 (24-31) mEq/l POC Base Excess (-9-1.8) mary/L POC ABG O2 Sat (90-95) % Sree Test O2 Delivery Device POC O2 Rate Minute Ventilation POC FiO2 % Tidal Volume PEEP Sodium (136-145) mmol/L Potassium (3.5-5.1) mmol/L Chloride (98-107) mmol/L Carbon Dioxide (21-32) mmol/L Anion Gap (3-11) BUN (7-18) mg/dl Creatinine (0.6-1.2) mg/dl Est Cr Clr Drug Dosing ml/min Est GFR ( Amer) Est GFR (Non-Af Amer) BUN/Creatinine Ratio (10-20) Glucose (70-99) mg/dl POC Glucose (other) (70-99) mg/dl Calcium (8.5-10.1) mg/dl Phosphorus (2.5-4.9) mg/dl Albumin (3.4-5.0) gm/dl Blood Type O Positive Antibody Screen NEGATIVE Crossmatch See Detail Home Medications Medication Instructions Recorded Confirmed Last Taken Calcium 600 + D(3) 1 tab PO BID 02/15/18 11/07/18 11/06/18 17:00 Novolog Flexpen U-100 Insulin 5 unit SUBCUT 1700 02/15/18 11/07/18 11/05/18 17:00 Tresiba FlexTouch U-100 15 unit SUBCUT 02/15/18 11/07/18 11/05/18 20:00 acetaminophen [Tylenol Extra 1,000 mg PO TID PRN 02/15/18 11/07/18 11/06/18 06:00 Strength] cholecalciferol (vitamin D3) 2,000 unit PO BID 02/15/18 11/07/18 11/06/18 17:00 [Vitamin D3] clopidogrel [Plavix] 75 mg PO HS 02/15/18 11/07/18 10/31/18 20:00 diclofenac sodium [Voltaren] 2 g TOPICAL QID PRN 02/15/18 11/07/18 11/05/18 12:00 duloxetine [Cymbalta] 30 mg PO 1200 02/15/18 11/07/18 11/06/18 12:00 gabapentin 100 mg PO TID 02/15/18 11/07/18 11/07/18 05:30 isosorbide mononitrate 30 mg PO QAM 02/15/18 11/07/18 11/07/18 05:30 losartan 25 mg PO QAM 02/15/18 11/07/18 11/06/18 07:00 metoprolol succinate [Toprol XL] 100 mg PO QPM 02/15/18 11/07/18 11/06/18 18:00 nitroglycerin [Nitrostat] 0.4 mg SUBLINGUAL DIRECTED PRN 02/15/18 11/07/18 Unknown prednisone 5 mg PO QAM 02/15/18 11/07/18 11/07/18 05:30 rosuvastatin [Crestor] 40 mg PO QPM 02/15/18 11/07/18 11/05/18 17:00 zolpidem [Ambien] 5 mg PO HS PRN 02/15/18 11/07/18 07/29/18 loratadine 10 mg PO DAILY PRN 10/12/18 11/07/18 Unknown triamcinolone acetonide [Nasacort] 1 spray INTRANASAL DAILY PRN 10/12/18 11/07/18 Unknown pantoprazole [Protonix] 40 mg PO DAILY 11/07/18 11/07/18 11/07/18 05:30 oxycodone-acetaminophen [Percocet] 1 - 2 tab PO Q4H PRN #15 tab MDD 6 11/09/18 Unknown Active Medications Generic Name Dose Route Start Last Admin Trade Name Freq PRN Reason Stop Dose Admin Clopidogrel Bisulfate 75 mg 11/10/18 09:00 11/19/18 08:52 Plavix PO 12/10/18 08:59 75 mg QAM OLLIE Administration Duloxetine HCl 30 mg 11/07/18 15:00 11/13/18 13:24 Cymbalta PO 12/07/18 14:59 30 mg 1200 OLLIE Administration Fentanyl Citrate 100 mcg 11/16/18 18:45 11/19/18 06:07 Fentanyl Citrate IV 11/30/18 18:44 100 mcg Q2H PRN Administration Severe Pain (7,8,9,10) Gabapentin 100 mg 11/07/18 14:39 11/13/18 23:46 Neurontin PO 12/07/18 14:38 100 mg TID OLLIE Administration Acetaminophen 1,000 mg in 100 mls @ 400 mls/hr 11/07/18 14:39 11/18/18 17:50 Ofirmev IV 12/07/18 14:38 Infused Q8H PRN Infusion MILD Pain (Scale 1,2,3) Promethazine HCl 12.5 mg/ 50.5 mls @ 202 mls/hr 11/09/18 18:36 11/12/18 16:41 Sodium Chloride IV 12/09/18 18:35 Infused Q6H PRN Infusion Nausea And Vomiting Hydrocortisone Sodium 1 mls @ 4 mls/min 11/13/18 17:30 11/19/18 08:52 Succinate 50 mg/ Syringe IV 12/13/18 17:29 4 mls/min Q8H OLLIE Administration Piperacillin Sod/Tazobactam 115 mls @ 28.75 mls/hr 11/14/18 02:00 11/19/18 06:00 Sod 3.375 gm/ Dextrose IV 11/24/18 01:59 Infused Q12H OLLIE Infusion Protocol Norepinephrine Bitartrate 8 mg 508 mls @ 18.11 mls/hr 11/14/18 00:15 11/19/18 09:09 / Dextrose IV 12/14/18 00:14 0.06 mcg/kg/min .Q24H OLLIE 18.1 mls/hr Titration Protocol 0.06 MCG/KG/MIN Famotidine 20 mg/ Syringe 5 mls @ 2.5 mls/min 11/14/18 09:30 11/19/18 08:52 IV 12/14/18 09:29 2.5 mls/min QAM OLLIE Administration Insulin Human Regular 250 250 mls @ 0.6 mls/hr 11/15/18 00:15 11/19/18 09:09 units/ Sodium Chloride IV 12/15/18 00:14 Not Given .Q24H OLLIE Protocol 0.6 UNITS/HR Vasopressin 20 units/ Sodium 101 mls @ 0 mls/hr 11/15/18 18:19 11/16/18 09:05 Chloride IV 12/15/18 18:18 Not Given .Q0M OLLIE 0 UNIT/MIN Heparin Sodium/Dextrose 25,000 units in 500 mls @ 16 mls/hr 11/16/18 17:30 11/19/18 09:09 Heparin Sodium/Dextrose IV 12/16/18 17:29 800 units/hr .Q24H OLLIE 16 mls/hr Titration Protocol 800 UNITS/HR Thiamine HCl 100 mg/ Syringe 10 mls @ 2 mls/min 11/18/18 09:00 11/19/18 08:52 IV 12/18/18 08:59 2 mls/min QAM OLLIE Administration Phenylephrine HCl 20 mg/ 502 mls @ 13.6 mls/hr 11/17/18 00:35 11/19/18 09:09 Dextrose IV 12/17/18 00:34 Infused .Q24H OLLIE Titration Protocol 0.1 MCG/KG/MIN Digoxin 125 mcg/ Syringe 10 mls @ 2 mls/min 11/19/18 05:30 11/19/18 06:33 IV 11/19/18 11:34 2 mls/min Q6H OLLIE Administration Propofol 1,000 mg in 100 mls @ 2.787 mls/hr 11/19/18 08:13 11/19/18 08:19 Diprivan IV 11/22/18 08:12 5 mcg/kg/min .Q24H OLLIE 2.8 mls/hr Administration Protocol 5 MCG/KG/MIN Insulin Aspart 0 units 11/13/18 18:00 11/14/18 18:09 Novolog Flexpen SC 12/08/18 16:29 3 units Q6 OLLIE Administration Insulin Aspart 0 units 11/15/18 09:00 11/19/18 07:31 Novolog Flexpen SC 12/15/18 08:59 Not Given PCHS OLLIE Isosorbide Mononitrate 30 mg 11/09/18 09:00 11/14/18 09:52 Imdur Extended Rel PO 12/09/18 08:59 Not Given QAM OLLIE Losartan Potassium 25 mg 11/09/18 09:00 11/13/18 09:09 Cozaar PO 12/09/18 08:59 25 mg QAM OLLIE Administration Metoprolol Succinate 50 mg 11/13/18 21:00 11/13/18 22:59 Toprol Xl PO 12/13/18 20:59 Not Given QPM OLLIE Metoprolol Tartrate 5 mg 11/17/18 15:08 11/18/18 23:04 Lopressor IV 12/17/18 15:07 5 mg Q5M PRN Administration Tachycardia Midazolam HCl 2 mg 11/16/18 18:45 11/19/18 07:01 Versed IV 12/16/18 18:44 2 mg Q2H PRN Administration agitation/anxiety Oxycodone/Acetaminophen 1 tab 11/09/18 13:42 11/12/18 07:53 Percocet 5mg/325mg PO 11/23/18 13:41 1 tab Q4H PRN Administration Pain 1-5 Oxycodone/Acetaminophen 2 tab 11/12/18 08:27 11/12/18 19:18 Percocet 5mg/325mg PO 11/26/18 08:26 2 tab Q4H PRN Administration Pain 6-10 Rosuvastatin Calcium 40 mg 11/08/18 21:00 11/18/18 22:44 Crestor PO 12/08/18 20:59 Not Given QPM OLLIE Critical Care Time Critical Care Time: Yes Total Critical Care Time: 40
[2018-11-19] MEDS: NOREPINEPHRINE BIT INJ 8 MG in DEXTROSE 5% 500 ML IV SCH (11:47)
[2018-11-19] MEDS ORDERED: MoRPHine SULFATE 2 MG/ML CARP IV PRN (12:53)
[2018-11-19] MEDS ORDERED: LORazepam 0.5 MG/1 ML VIAL IV PRN (12:55)
[2018-11-19] MEDS ORDERED: ATROPINE SULFATE 1% OP SOLN 5 ML BTL OP PRN (13:15)
[2018-11-19] MEDS ORDERED: MoRPHine SULFATE 2 MG/ML CARP IV STA (13:25)
[2018-11-19] MEDS: MoRPHine SULFATE 2 MG/ML CARP IV PRN ×2 (13:40→13:41)
[2018-11-19] MEDS: MoRPHine SULF/NSS 250 MG/250 ML BTL IV SCH ×2 (13:45→14:42)
[2018-11-19] MEDS ORDERED: MoRPHine SULF/NSS 1 MG/ML 250 ML BTL IV ONE (13:47)
[2018-11-19] MEDS: Heparin Adult STANDARD Wt-Based Dextrose 5% 25,000 units/500 mL IV SCH (14:39)
--- NOTE | 2018-11-19 16:51 | Hospitalist Progress Note ---
Date of Service November 19, 2018 Assessment & Plan (1) Palliative care status: as mentioned above, patient made comfort care today by ICU staff and palliative care Morphine gtt, Ativan, Atropine ordered PRN will sign off this case as general surgery is primary (2) Sepsis associated hypotension: - Required upgrade to ICU on 11/13/18; re-intubated on 11/16/18. - withdrawal aggressive care today (3) Small bowel infarction: - S/p urgent laparotomy with small bowel resection, ileocolic resection, mucous fistula, ileostomy and abdominal washout on 11/13 due to multiple small infarcts. 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 - NPO (4) Recurrent adenocarcinoma of colorectal region: - S/p hemicolectomy in 2007; s/p partial colectomy on 11/07 for recurrent cancer followed by urgent laparotomy as noted above. - Primary management per surgery team & ICU team. (5) Acute respiratory failure with hypoxia: - Echo 11/13 with decreased EF 45-50% with mild global hypokinesis and elevated right ventricular pressures. - Re-intubated on 11/16; bronch completed, cultures negative to date. - Management per ICU team. on morphine drip and can be terminally extubated (6) Acute renal failure: - Creatinine remains elevated with metabolic acidosis. - Figueroa for accurate I/Os; monitor daily weights. required several sessions of HD that were blunted due to hemodynamic instability and arrhythmias no further HD planned, comfort measures only (7) Stage III chronic kidney disease: see above (8) Atrial fibrillation with RVR: - Required cardioversion x 2 on 11/16 and once on 11/17/18 and then around midnight on 11/18 - D/c'ed Amiodarone drip due to prolonged QTc. - Heparin drip for anticoagulation. will now be comfort (9) Prolonged QT interval: - Hold all QT prolonging agents if possible. - Most recent QTc was 585 on 11/17/18. (10) Diabetes: - Hemoglobin A1C was 7.6. - Glucose management per ICU team. (11) CAD (coronary artery disease): - CAD S/P CABG x 3. - [place] [facility], had pre-operative assessment/clearance. - Continue statin and plavix as prescribed. - Holding Imdur and Metoprolol. (12) History of aortic valve replacement: - AVR with Bioprosthetic (2016). - Well functioning per echo. (13) Hypertension: - Holding ARB due to SHAZIA and hypotension. - Beta jaron and Imdur also on hold. - Currently requiring pressor support x 2. (14) Obstructive sleep apnea of adult: - Pt. uses CPAP qhs. - Remains intubated. (15) PMR (polymyalgia rheumatica): - On Prednisone 5 mg daily at home -- receiving stress dose steroids. (16) Depression with anxiety: - Holding home Cymbalta in setting of prolonged QTc. (17) History of CVA (cerebrovascular accident): - Occurred following surgery (AVR). - Continue Plavix, statin as prescribed. (18) GERD (gastroesophageal reflux disease): - Famotidine 20 mg IV qAM. (19) DVT prophylaxis: - Heparin drip. Dispo: ICU status, will continue to follow. Subjective long discussion with patient's family this morning involving volumetric weigher, nephrology and palliative care this occurred prior to me arriving on the floor decision made to withdrawal care and place patient on comfort measures since the patient was new to my service I did not feel it was necessary to examine patient or discuss with family since decision had been reached and we were on consult I did review labs and talk with volumetric weigher I discussed with palliative care team after their discussion will sign off the case since we are consulted and patient now on comfort measures Review of Systems Review of Systems: Unobtainable due to endotracheal tube and Unobtainable due to reduced consciousness Physical Exam Physical Exam: did not examine patient today as she was made comfort care prior to my visit Results & Data Vital Signs (Past 12 Hours) Vital Signs Pulse Resp BP Pulse Ox 11/19/18 14:30 93 H 11/19/18 14:00 108 H 11/19/18 13:30 114 H 24 11/19/18 13:01 61 122/58 L 94 11/19/18 13:00 67 82 L 11/19/18 12:46 59 L 119/55 L 94 11/19/18 12:31 65 127/57 L 94 11/19/18 12:30 67 83 L 11/19/18 12:16 63 120/60 95 11/19/18 12:01 64 123/63 95 11/19/18 12:00 60 66 L 11/19/18 11:58 64 11/19/18 11:46 79 138/69 99 11/19/18 11:31 61 115/56 L 97 11/19/18 11:30 60 19 99 11/19/18 11:16 61 18 116/59 L 97 11/19/18 11:01 68 18 97 11/19/18 11:00 61 20 123/54 L 97 11/19/18 10:46 62 19 112/58 L 97 11/19/18 10:31 58 L 18 108/56 L 96 11/19/18 10:30 63 21 11/19/18 10:16 59 L 17 106/51 L 96 11/19/18 10:01 63 17 103/56 L 96 11/19/18 10:00 64 17 95 11/19/18 09:46 73 17 112/55 L 96 11/19/18 09:31 82 121/77 81 L 11/19/18 09:30 84 24 92 11/19/18 09:16 72 17 90/51 L 96 11/19/18 09:09 73 21 95/53 L 95 11/19/18 09:00 82 96 11/19/18 08:33 89 110/77 90 11/19/18 08:30 90 94 11/19/18 08:00 101 H 93 11/19/18 07:46 98 H 139/79 95 11/19/18 07:33 81 18 98 11/19/18 07:31 98 H 156/111 H 95 11/19/18 07:30 98 H 95 11/19/18 07:16 77 124/75 99 11/19/18 07:01 107 H 161/84 H 95 11/19/18 07:00 100 H 11/19/18 06:46 107 H 154/99 H 98 11/19/18 06:45 97 H 11/19/18 06:19 78 18 100 Laboratory Results Laboratory Results - last 24 hr 11/18/18 11/18/18 11/18/18 08:44 08:44 10:06 WBC RBC Hgb Hct MCV MCH MCHC RDW Std Deviation RDW Coeff of David Plt Count MPV Immature Gran % (Auto) Neut % (Auto) Lymph % (Auto) Hamilton % (Auto) Eos % (Auto) Baso % (Auto) Immature Gran # (Auto) Neut # (Auto) Lymph # (Auto) Hamilton # (Auto) Eos # (Auto) Baso # (Auto) Absolute Nucleated RBC Nucleated RBC % (auto) APTT PTT Ratio Sample Site POC pH POC pCO2 POC pO2 POC HCO3 POC Total CO2 POC Base Excess POC ABG O2 Sat Sree Test O2 Delivery Device POC O2 Rate Minute Ventilation POC FiO2 Tidal Volume PEEP Sodium Potassium Chloride Carbon Dioxide Anion Gap BUN Creatinine Est Cr Clr Drug Dosing Est GFR ( Amer) Est GFR (Non-Af Amer) BUN/Creatinine Ratio Glucose POC Glucose Cancelled POC Glucose (other) 130 H Calcium Phosphorus Albumin Crossmatch See Detail 11/18/18 11/18/18 11/18/18 12:42 12:42 14:18 WBC RBC Hgb Hct MCV MCH MCHC RDW Std Deviation RDW Coeff of David Plt Count MPV Immature Gran % (Auto) Neut % (Auto) Lymph % (Auto) Hamilton % (Auto) Eos % (Auto) Baso % (Auto) Immature Gran # (Auto) Neut # (Auto) Lymph # (Auto) Hamilton # (Auto) Eos # (Auto) Baso # (Auto) Absolute Nucleated RBC Nucleated RBC % (auto) APTT PTT Ratio Sample Site POC pH POC pCO2 POC pO2 POC HCO3 POC Total CO2 POC Base Excess POC ABG O2 Sat Sree Test O2 Delivery Device POC O2 Rate Minute Ventilation POC FiO2 Tidal Volume PEEP Sodium Potassium Chloride Carbon Dioxide Anion Gap BUN Creatinine Est Cr Clr Drug Dosing Est GFR ( Amer) Est GFR (Non-Af Amer) BUN/Creatinine Ratio Glucose POC Glucose Cancelled Cancelled POC Glucose (other) 107 H Calcium Phosphorus Albumin Crossmatch 11/18/18 11/18/18 11/18/18 14:18 14:57 14:57 WBC RBC Hgb Hct MCV MCH MCHC RDW Std Deviation RDW Coeff of David Plt Count MPV Immature Gran % (Auto) Neut % (Auto) Lymph % (Auto) Hamilton % (Auto) Eos % (Auto) Baso % (Auto) Immature Gran # (Auto) Neut # (Auto) Lymph # (Auto) Hamilton # (Auto) Eos # (Auto) Baso # (Auto) Absolute Nucleated RBC Nucleated RBC % (auto) APTT PTT Ratio Sample Site POC pH POC pCO2 POC pO2 POC HCO3 POC Total CO2 POC Base Excess POC ABG O2 Sat Sree Test O2 Delivery Device POC O2 Rate Minute Ventilation POC FiO2 Tidal Volume PEEP Sodium Potassium Chloride Carbon Dioxide Anion Gap BUN Creatinine Est Cr Clr Drug Dosing Est GFR ( Amer) Est GFR (Non-Af Amer) BUN/Creatinine Ratio Glucose POC Glucose Cancelled POC Glucose (other) 96 96 Calcium Phosphorus Albumin Crossmatch 11/18/18 11/18/18 11/18/18 16:03 16:03 17:07 WBC RBC Hgb Hct MCV MCH MCHC RDW Std Deviation RDW Coeff of David Plt Count MPV Immature Gran % (Auto) Neut % (Auto) Lymph % (Auto) Hamilton % (Auto) Eos % (Auto) Baso % (Auto) Immature Gran # (Auto) Neut # (Auto) Lymph # (Auto) Hamilton # (Auto) Eos # (Auto) Baso # (Auto) Absolute Nucleated RBC Nucleated RBC % (auto) APTT PTT Ratio Sample Site POC pH POC pCO2 POC pO2 POC HCO3 POC Total CO2 POC Base Excess POC ABG O2 Sat Sree Test O2 Delivery Device POC O2 Rate Minute Ventilation POC FiO2 Tidal Volume PEEP Sodium Potassium Chloride Carbon Dioxide Anion Gap BUN Creatinine Est Cr Clr Drug Dosing Est GFR ( Amer) Est GFR (Non-Af Amer) BUN/Creatinine Ratio Glucose POC Glucose Cancelled Cancelled POC Glucose (other) 96 Calcium Phosphorus Albumin Crossmatch 11/18/18 11/18/18 11/18/18 17:07 18:09 18:09 WBC RBC Hgb Hct MCV MCH MCHC RDW Std Deviation RDW Coeff of David Plt Count MPV Immature Gran % (Auto) Neut % (Auto) Lymph % (Auto) Hamilton % (Auto) Eos % (Auto) Baso % (Auto) Immature Gran # (Auto) Neut # (Auto) Lymph # (Auto) Hamilton # (Auto) Eos # (Auto) Baso # (Auto) Absolute Nucleated RBC Nucleated RBC % (auto) APTT PTT Ratio Sample Site POC pH POC pCO2 POC pO2 POC HCO3 POC Total CO2 POC Base Excess POC ABG O2 Sat Sree Test O2 Delivery Device POC O2 Rate Minute Ventilation POC FiO2 Tidal Volume PEEP Sodium Potassium Chloride Carbon Dioxide Anion Gap BUN Creatinine Est Cr Clr Drug Dosing Est GFR ( Amer) Est GFR (Non-Af Amer) BUN/Creatinine Ratio Glucose POC Glucose Cancelled POC Glucose (other) 96 125 H Calcium Phosphorus Albumin Crossmatch 11/18/18 11/18/18 11/19/18 19:45 22:03 04:54 WBC RBC Hgb Hct MCV MCH MCHC RDW Std Deviation RDW Coeff of David Plt Count MPV Immature Gran % (Auto) Neut % (Auto) Lymph % (Auto) Hamilton % (Auto) Eos % (Auto) Baso % (Auto) Immature Gran # (Auto) Neut # (Auto) Lymph # (Auto) Hamilton # (Auto) Eos # (Auto) Baso # (Auto) Absolute Nucleated RBC Nucleated RBC % (auto) APTT PTT Ratio Sample Site POC pH POC pCO2 POC pO2 POC HCO3 POC Total CO2 POC Base Excess POC ABG O2 Sat Sree Test O2 Delivery Device POC O2 Rate Minute Ventilation POC FiO2 Tidal Volume PEEP Sodium 131 L Potassium 4.3 Chloride 97 L Carbon Dioxide 23 Anion Gap 11.0 BUN 35 H Creatinine 3.62 H D Est Cr Clr Drug Dosing 14.6 Est GFR ( Amer) 12.8 Est GFR (Non-Af Amer) 11.1 BUN/Creatinine Ratio 9.8 L Glucose 166 H POC Glucose POC Glucose (other) 132 H 159 H Calcium 8.5 Phosphorus 6.8 H D Albumin 1.9 L Crossmatch 11/19/18 11/19/18 11/19/18 04:54 04:54 05:53 WBC 21.60 H RBC 3.62 L Hgb 10.5 L Hct 30.7 L MCV 84.8 MCH 29.0 MCHC 34.2 RDW Std Deviation 50.9 H RDW Coeff of David 16.2 H Plt Count 201 MPV 10.1 Immature Gran % (Auto) 4.4 Neut % (Auto) 80.5 Lymph % (Auto) 4.9 Hamilton % (Auto) 10.0 Eos % (Auto) 0.0 Baso % (Auto) 0.2 Immature Gran # (Auto) 0.96 H Neut # (Auto) 17.38 H Lymph # (Auto) 1.05 L Hamilton # (Auto) 2.17 H Eos # (Auto) 0.00 Baso # (Auto) 0.04 Absolute Nucleated RBC 0.05 H Nucleated RBC % (auto) 0.2 APTT 47.8 H* PTT Ratio 1.8 Sample Site L Radial POC pH 7.42 POC pCO2 32 L POC pO2 256 H POC HCO3 21 POC Total CO2 21 L POC Base Excess -4.0 POC ABG O2 Sat 100.0 H Sree Test NA O2 Delivery Device Ventilator POC O2 Rate 16 Minute Ventilation 8.3 POC FiO2 100 Tidal Volume 450 PEEP 7 Sodium Potassium Chloride Carbon Dioxide Anion Gap BUN Creatinine Est Cr Clr Drug Dosing Est GFR ( Amer) Est GFR (Non-Af Amer) BUN/Creatinine Ratio Glucose POC Glucose POC Glucose (other) Calcium Phosphorus Albumin Crossmatch 11/19/18 07:47 WBC RBC Hgb Hct MCV MCH MCHC RDW Std Deviation RDW Coeff of David Plt Count MPV Immature Gran % (Auto) Neut % (Auto) Lymph % (Auto) Hamilton % (Auto) Eos % (Auto) Baso % (Auto) Immature Gran # (Auto) Neut # (Auto) Lymph # (Auto) Hamilton # (Auto) Eos # (Auto) Baso # (Auto) Absolute Nucleated RBC Nucleated RBC % (auto) APTT PTT Ratio Sample Site POC pH POC pCO2 POC pO2 POC HCO3 POC Total CO2 POC Base Excess POC ABG O2 Sat Sree Test O2 Delivery Device POC O2 Rate Minute Ventilation POC FiO2 Tidal Volume PEEP Sodium Potassium Chloride Carbon Dioxide Anion Gap BUN Creatinine Est Cr Clr Drug Dosing Est GFR ( Amer) Est GFR (Non-Af Amer) BUN/Creatinine Ratio Glucose POC Glucose POC Glucose (other) 172 H Calcium Phosphorus Albumin Crossmatch Medications Administered Current Inpatient Medications Atropine Sulfate (Atropine Sulfate 1% Oph) 4 drops OP Q2H PRN PRN Reason: secretions Stop: 12/19/18 13:14 Lorazepam (Ativan) 0.5 mg in 1 mls @ 1 mls/min IV Q2H PRN PRN Reason: Agitation Stop: 12/19/18 12:54 Last Admin: 11/19/18 13:41 Dose: 1 mls/min Documented by: Morphine Sulfate (Morphine Sulf/Nss) 250 mg in 250 mls @ 1 mls/hr IV .Q24H [facility]; Protocol Stop: 12/03/18 13:44 Last Titration: 11/19/18 16:30 Dose: 15 mg/hr, 15 mls/hr Documented by: Morphine Sulfate (Morphine Sulfate) 2 mg IV Q15M PRN PRN Reason: Pain Stop: 12/03/18 12:52 Last Admin: 11/19/18 13:41 Dose: 2 mg Documented by:
--- NOTE | 2018-11-19 20:19 | Death Summary ---
Date of Service November 19, 2018 The patient ceased to have spontaneous respirations or heart beat. Pupils were fixed and dilated. Family was in attendance at the time of and notified in person. Patient is not a printed circuit board reworker's case. Time of pronouncement : 7:53 PM Pronouncement Note Contributing Factors (1) Palliative care status: (2) Sepsis associated hypotension: (3) Small bowel infarction: (4) Recurrent adenocarcinoma of colorectal region: (5) Acute respiratory failure with hypoxia: (6) Acute renal failure: (7) Stage III chronic kidney disease: (8) Atrial fibrillation with RVR: (9) Prolonged QT interval: (10) Diabetes: (11) CAD (coronary artery disease): (12) History of aortic valve replacement: (13) Hypertension: (14) Obstructive sleep apnea of adult: (15) PMR (polymyalgia rheumatica): (16) Depression with anxiety: (17) History of CVA (cerebrovascular accident): (18) GERD (gastroesophageal reflux disease): (19) DVT prophylaxis: Additional Data Attending physician: Ruperto Joseph DO, FACS
--- NOTE | 2018-11-20 08:04 | Discharge Summary ---
DATE OF : 11/19/2018. PRINCIPAL DIAGNOSES: Recurrent colon cancer and also bowel obstruction with infarction. OTHER DIAGNOSES: Renal failure, respiratory failure, atrial fibrillation with rapid response and hypotension, acute hypoxemia, sepsis. PROCEDURES: The patient underwent a laparoscopic-assisted ileocolic resection with anastomosis. She also underwent exploratory laparotomy with small bowel resection of ileocolic anastomosis, colonic mucous fistula and end ileostomy. OTHER PROCEDURES: Included arterial line placement, central line placement, hemodialysis catheter placement, intubation with bronchoscopy. HISTORY OF PRESENT ILLNESS AND HOSPITAL COURSE: The patient is an 83-year-old female brought into the hospital for definitive surgery to treat recurrent colorectal cancer. On 11/07/2018, she was taken to the operating room where she underwent laparoscopic-assisted ileocolic resection with anastomosis. 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 Her renal function also deteriorated with elevated creatinine and decreased urine output. Later that day, she was emergently taken to the operating room where she underwent exploratory laparotomy with findings of a small-bowel obstruction, small bowel infarction with ischemia requiring small bowel resection, ileocolic resection, colonic mucous fistula and end ileostomy. Postoperatively, she had a very difficult course, initially requiring ventilator support and also her renal function deteriorated. Gradually, she developed a rapid response atrial fibrillation with hypotension requiring cardioversion. She also required reintubation after a short period of extubation with worsening cardiac function and renal function. The patient had multisystem organ failure and was ventilator dependent with difficulty dialyzing the patient. Discussion was had with the patient and patient's family and comfort measures were begun. She on 11/19/2018. She was in the ICU at that point.
== END 2018-11-19 19:53 | disposition expired | DRG 329 ==
LOC: ASU 06:38 → 2S 08:39 → 3N 11-09 08:05 → 1E 11-13 19:35